=== PATIENT | female | born 1950 | race Caucasian/White ===

== ENCOUNTER → 2022-06-26 | Outpatient (CLI) | payer MEDICARE, SELFPAY ==
[2022-06-26 12:50] LABS: Microalbumin:Creatinine Ratio 131.3 mg/g CRE (<30 mg/g CRE)
[2022-06-26 12:52] LABS: Vitamin D,25 Hydroxy 79.4 ng/mL
[2022-06-26 13:47] LABS: AST(SGOT) 11 U/L (15-37); Alanine Aminotransfer ALT/SGPT 17 U/L (13-56); Albumin, Serum 3.2 g/dL (3.2-5.0); Alkaline Phosphatase 76 U/L (45-117); Anion Gap 8 (5-15); BUN 16 mg/dL (7-18); BUN/Creat Ratio 16.5 RATIO (10-20); Calcium,Total 8.8 mg/dL (8.5-10.1); Chloride 107 mmol/L (98-107); Cholesterol 126 mg/dL (200); Creatinine, Serum 0.97 mg/dL (0.55-1.02); EST Glomerular Filtration Rate 60 mL/min (>60); Est Glom Filt Rate - Afr Amer 73 mL/min (>60); Globulin 3.2 g/dL (2.2-4.2); Glucose 76 mg/dL (74-106); High Density Lipoprotein 35 mg/dL; Potassium 3.2 mmol/L (3.5-5.1); Protein, Total 6.4 g/dL (6.4-8.2); Sodium Level 141 mmol/L (136-145); T4 Free Direct 1.18 ng/dL (0.76-1.46); Thyroid Stim Hormone (TSH) 0.44 uIU/mL (0.358-3.74); Triglycerides 188 mg/dL; Very Low Density Lipoprotein 38 mg/dL (5-40)
== END | disposition home or self-care (01) ==
PROVIDERS: PCP Family Medicine; Referring Provider Nurse Practitioner Family; Visit Provider Nurse Practitioner Family
DX: E10.319 Type 1 diabetes mellitus with unspecified diabetic retinopathy without macular edema (principal); E10.42 Type 1 diabetes mellitus with diabetic polyneuropathy; E55.9 Vitamin D deficiency, unspecified
CPT/HCPCS: 36415; 80053; 80061; 82043; 82306; 82570; 84439; 84443

== ENCOUNTER → 2022-08-14 | Outpatient (CLI) | payer MEDICARE, SELFPAY ==
[2022-08-14 17:32] LABS: ALB/GLOB Ratio 1.1 RATIO (0.9-2.4); AST(SGOT) 15 U/L (15-37); Alanine Aminotransfer ALT/SGPT 18 U/L (13-56); Albumin, Serum 3.5 g/dL (3.2-5.0); Alkaline Phosphatase 73 U/L (45-117); Anion Gap 4 (5-15); BUN 21 mg/dL (7-18); BUN/Creat Ratio 21.6 RATIO (10-20); Calcium,Total 9.4 mg/dL (8.5-10.1); Chloride 109 mmol/L (98-107); Creatinine, Serum 0.97 mg/dL (0.55-1.02); EST Glomerular Filtration Rate 60 mL/min (>60); Est Glom Filt Rate - Afr Amer 73 mL/min (>60); Globulin 3.3 g/dL (2.2-4.2); Glucose 314 mg/dL (74-106); Potassium 4.1 mmol/L (3.5-5.1); Protein, Total 6.8 g/dL (6.4-8.2); Sodium Level 140 mmol/L (136-145)
== END | disposition home or self-care (01) ==
LOC: LAB 16:48
PROVIDERS: Nurse Practitioner Family; PCP Family Medicine; Referring Provider Physician Assistant; Visit Provider Physician Assistant
DX: E10.65 Type 1 diabetes mellitus with hyperglycemia (principal)
CPT/HCPCS: 36415; 80053

== ENCOUNTER → 2022-09-05 | Outpatient (CLI) | payer MEDICARE, SELFPAY ==
--- NOTE | 2022-09-05 13:16 | CT_ITS ---
STUDY: CTA OF THE ABDOMINAL AORTA AND BILATERAL LOWER EXTREMITIES REASON FOR EXAM: Female, 71 years old. PAD with BLE claudication RADIATION DOSAGE (If Supplied By Facility): CTDIvol = ( 6.48 ) mGy, DLP = ( 979.62 ) mGycm TECHNIQUE: Axial CT angiography multi-detector data acquisition was obtained from the dome of the liver to the level of the ankles following intravenous administration of IV 100mL Isovue-370. Axial images and MIP images were reconstructed from the axial data set. Post-processing of the angiographic images was performed, with multiplanar reformation and 3D reconstruction. Individualized dose optimization techniques were used for this CT. TECHNICAL QUALITY: Good COMPARISON: None. Descriptors of Narrowing: None (0%) Mild (< 50%) Moderate (50-70%) Severe (70-90%) Subtotal/Total Occlusion (90-100%) Non-Evaluable (technically non-diagnostic FINDINGS: There is a 3.2 cm x 3.5 cm cyst in the lateral midportion of the left kidney. There is also evidence of a 1.4 cm cyst in the anterior midportion of the left kidney. Small gallstones. Abdominal aorta: Atherosclerotic calcific plaques of the abdominal aorta. No evidence of aneurysm. Celiac and superior mesenteric arteries: No demonstrated narrowing. Inferior mesenteric artery: No demonstrated narrowing. Right renal artery(arteries): Mild atherosclerotic plaques at the origin of the right renal artery. Left renal artery(arteries): Mild atherosclerotic plaques at the origin of the left renal artery. Right common iliac artery: Nonstenotic plaques in the right common iliac artery. Right external iliac artery: No demonstrated narrowing. Right internal iliac artery: No demonstrated narrowing. Left common iliac artery: Nonstenotic calcific plaques. Left external iliac artery: No demonstrated narrowing. Left internal iliac artery: No demonstrated narrowing. RIGHT LOWER EXTREMITY Right common femoral artery: No demonstrated narrowing. Right profundus femoris: No demonstrated narrowing. Right superficial femoral: Scattered nonstenotic plaques throughout the course of the superficial femoral artery. Right popliteal artery: Nonstenotic plaques of the popliteal artery. Right tibioperoneal trunk: No demonstrated narrowing. Right anterior tibial artery: No demonstrated narrowing. Right posterior tibial artery: No demonstrated narrowing. Right peroneal artery: No demonstrated narrowing. LEFT LOWER EXTREMITY Left common femoral artery: No demonstrated narrowing. Left profundus femoris: No demonstrated narrowing. Left superficial femoral: Nonstenotic calcific plaques. Left popliteal artery: No demonstrated narrowing. Left tibioperoneal trunk: No demonstrated narrowing. Left anterior tibial artery: No demonstrated narrowing. Left posterior tibial artery: No demonstrated narrowing. Left peroneal artery: No demonstrated narrowing. CT/CTA Abd w/Runoff W/WO Contrast IMPRESSION: Atherosclerotic calcific plaques of the abdominal aorta without aneurysmal formation. Scattered atherosclerotic and not stenotic calcific plaques of both common iliac arteries and superficial femoral arteries. Electronically Signed: Jaylan Ashford MD at 15:08 EDT ,
== END | disposition home or self-care (01) ==
LOC: CT 13:12
PROVIDERS: PCP Family Medicine; Referring Provider Physician Assistant; Visit Provider Physician Assistant
DX: I70.219 Atherosclerosis of native arteries of extremities with intermittent claudication, unspecified extremity (principal); I70.0 Atherosclerosis of aorta
CPT/HCPCS: 75635; Q9967

== ENCOUNTER → 2022-09-30 | Outpatient (CLI) | payer MEDICARE, SELFPAY ==
--- NOTE | 2022-09-30 08:24 | MRI_ITS ---
STUDY: MRI LUMBAR SPINE WITHOUT CONTRAST REASON FOR EXAM: Female, 71 years old. Pain in low back and bilateral hips. TECHNIQUE: Standardized fat and water weighted pulse sequences were obtained in the sagittal and axial planes. COMPARISON: CTA abdomen with runoff 09/05/2022. Lumbar spine radiographs 09/12/2022. FINDINGS: T8-T9, T9-T10 and T10-T11: (Sagittal only). Degenerative disc space height narrowing. Small posterior bulging annulus at T9-T10 and T10-T11 disc space levels. Normal central canal and bilateral intervertebral neural foramina. T11-T12 and T12-L1: (Sagittal only). Normal endplates. Normal disc height, hydration and morphology. Normal central canal and bilateral intervertebral neural foramina. Normal lumbar lordosis. There is no substantial scoliosis. Normal conus medullaris that terminates at the lower T12 vertebral body level. L1-2: Normal endplates. Pronounced disc space height narrowing. Prominent ventral axial defect due to bone spur. Normal facet joints. Normal central canal and bilateral lateral recesses. Normal bilateral intervertebral neural foramina. L2-3: Extensive mixed Modic type I and type III degenerative changes of the vertebral marrow underneath the vertebral endplates. Pronounced disc space height narrowing. No significant facet arthropathy. Pronounced central canal stenosis with an AP canal diameter of 4 mm. Normal bilateral lateral recesses. Moderate stenosis of the left intervertebral neural foramen. Mild stenosis of the right intervertebral neural foramen. L3-4: Mild endplate sclerosis. Pronounced disc space height narrowing. No significant facet arthropathy. Prominent dorsal epidural lipomatosis. Pronounced central canal stenosis with an AP canal diameter of 4 mm. Normal bilateral lateral recesses. Mild stenosis of the bilateral intervertebral neural foramina. L4-5: Ankylosis of the L4-L5 vertebral body cyst. No significant facet arthropathy. Metallic implant in between the L4 and L5 spinous processes causing some signal distortion artifacts. Normal central canal and bilateral lateral recesses. Normal bilateral intervertebral neural foramina. L5-S1: Normal endplates. Normal disc height and morphology. Mild left degenerative facet arthropathy. Normal right facet joint. Normal central canal and bilateral lateral recesses. Moderate stenosis of the right intervertebral neural foramen. Normal left intervertebral neural foramen. Normal visualized sacral ala. Normal visualized paraspinous soft tissue structures. MRI/Spine Lumbar (Routine) IMPRESSION: 1. Pronounced central canal stenosis at L2-L3 disc space level with an AP canal diameter of 4 mm and moderate stenosis of the left L2-L3 intervertebral neural foramen. 2. Pronounced central canal stenosis at L3-L4 disc space level with an AP canal diameter of 4 mm. 3. No MRI evidence of lumbar extruded disc fragment or disc protrusion. Electronically Signed: Dejuan Kennedy MD at 12:28 EDT ,
[2022-09-30 09:19] LABS: ALB/GLOB Ratio 1.1 RATIO (0.9-2.4); AST(SGOT) 14 U/L (15-37); Alanine Aminotransfer ALT/SGPT 18 U/L (13-56); Albumin, Serum 3.3 g/dL (3.2-5.0); Alkaline Phosphatase 72 U/L (45-117); Anion Gap 4 (5-15); BUN 23 mg/dL (7-18); BUN/Creat Ratio 18.9 RATIO (10-20); Chloride 110 mmol/L (98-107); Creatinine, Serum 1.22 mg/dL (0.55-1.02); EST Glomerular Filtration Rate 46 mL/min (>60); Est Glom Filt Rate - Afr Amer 56 mL/min (>60); Globulin 3.1 g/dL (2.2-4.2); Glucose 258 mg/dL (74-106); Potassium 4.4 mmol/L (3.5-5.1); Protein, Total 6.4 g/dL (6.4-8.2); Sodium Level 137 mmol/L (136-145)
== END | disposition home or self-care (01) ==
PROVIDERS: Nurse Practitioner Family; PCP Family Medicine; Referring Provider Orthopaedic Surgery; Visit Provider Orthopaedic Surgery
DX: I12.9 Hypertensive chronic kidney disease with stage 1 through stage 4 chronic kidney disease, or unspecified chronic kidney disease (principal); E10.65 Type 1 diabetes mellitus with hyperglycemia; E10.22 Type 1 diabetes mellitus with diabetic chronic kidney disease; N18.30 Chronic kidney disease, stage 3 unspecified; M47.816 Spondylosis without myelopathy or radiculopathy, lumbar region
CPT/HCPCS: 36415; 72148; 80053

== ENCOUNTER 2022-10-21 07:35 | Day surgery (SDC) | payer MEDICARE, SELFPAY ==
[2022-10-20 09:04] VITALS: BMI 26.2
[2022-10-21 07:59] LABS: Absolute Lymphocyte Count 2.72 X10^3/uL (0.83-4.51); Basophil# 0.05 X10^3/uL; Basophil% 0.6 % (0-1); Eosinophil# 0.56 X10^3/uL; Eosinophils% 6.9 % (0-5); Hematocrit 36.8 % (37-47); Hemoglobin 12.2 g/dL (12.0-15.0); Lymphocyte # 2.72 X10^3/ul (0.83-4.51); Lymphocyte % 33.4 % (19-41); Mean Corp Hgb Conc 33.2 g/dL (32-36); Mean Corpuscular Hgb 29.9 pg (27.0-32.0); Mean Corpuscular Volume 90.2 fL (81-99); Mean Platelet Vol. 8.7 fl (6.2-12.0); Monocyte# 0.81 X10^3/uL; Monocyte% 9.9 % (0-10); NRBC Flagged by Analyzer 0 % (0-5); Neutrophil # 3.98 X10^3/uL (2.7-7.7); Neutrophil % 48.8 % (47-70); Platelet Count 213 K/mm3 (150-450); RBC Distribution Width SD 42.8 fl (35.1-43.9); Red Blood Count 4.08 M/mm3 (4.2-5.4); White Blood Count 8.2 K/mm3 (4.4-11.0)
[2022-10-21 08:17] LABS: Anion Gap 5 (5-15); BUN 12 mg/dL (7-18); BUN/Creat Ratio 13.1 RATIO (10-20); Calcium,Total 8.8 mg/dL (8.5-10.1); Chloride 107 mmol/L (98-107); Creatinine, Serum 0.91 mg/dL (0.55-1.02); EST Glomerular Filtration Rate 65 mL/min (>60); Est Glom Filt Rate - Afr Amer 78 mL/min (>60); Estimated Creatinine Clearance 41.91 ml/min; Glucose 244 mg/dL (74-106); Potassium 3.7 mmol/L (3.5-5.1); Sodium Level 138 mmol/L (136-145)
[2022-10-21 11:11] LABS: ACT Activated Clotting Time 275 sec (74-137)
[2022-10-21 11:12] LABS: ACT Activated Clotting Time 233 sec (74-137)
--- NOTE | 2022-10-21 11:22 | OP.PCM_ITS ---
Report of Operation Date of Procedure: 10/21/22 Pre-Operative Diagnosis: atherosclerosis with claudication bilateral Post-Operative Diagnosis: same Surgery/Procedure Performed:: aortogram IVUS aorta, bilateral common iliac arteries, bilateral external iliac arteries angioplasty/stent right common iliac artery angioplasty/stent right external iliac artery angioplasty/stent left external iliac artery Surgeon: Henry Walter Type of Anesthesia: Local and Sedation,Conscious Estimated Blood Loss (mL): 5 Description of Procedure: HPI: Patient is a 71-year-old female with lifestyle limiting claudication refractory to medical and exercise therapy. She had a CT scan which revealed a high-grade mid right common iliac artery stenosis and a high-grade left external iliac artery stenosis. She presents now for angiogram with possible intervention. Description of procedure: Upon obtaining form consent and verification correct patient procedure site patient was taken to the [facility] where she was positioned prepped and draped in usual sterile fashion. Time was performed conscious sedation was administered with Versed and fentanyl. Skin overlying the right common femoral artery was anesthetized 1% lidocaine and the vessel was accessed under ultrasound guidance with a micropuncture needle wire. This was exchanged for micropuncture sheath through which injection femoral angiogram was performed revealed satisfactory placement no extravasation or dissection. Through the micro sheath the Bentson wire was advanced and the micropuncture sheath exchanged out for a short 5 Azerbaijani sheath. Bentson wire then advanced into the abdominal aorta and the 5 Azerbaijani sheath exchanged for 7 Azerbaijani sheath advanced into the proximal external iliac artery. Next skin overlying the left common femoral artery was anesthetized 1% lidocaine and the vessel was accessed under ultrasound guidance with micropuncture needle and wire. This was then exchanged for micropuncture sheath through which injection femoral angiogram was performed through a satisfactory placement no extravasation or dissection. Through the micropuncture sheath a Bentson wire was advanced into the proximal external iliac artery which point obstruction was encountered. Micropuncture sheath then exchanged out for short 5 Azerbaijani sheath and through the 5 Azerbaijani sheath the Bentson wire and angled glide catheter were used to navigate the iliac lesion, traversing it successfully and entering into the abdominal aorta. Patient was then heparinized and lost for 3 minutes. The left 5 Azerbaijani sheath was exchanged out for a 6 Azerbaijani sheath. Hand-injection aortogram pelvic angiogram was performed which confirmed the high-grade stenosis of both the right common and left external iliac arteries. In order to obtain more accurate size measurement and extent of lesion intravascular ultrasound was then brought to field prep for head butler instructions. The glide catheter was advanced via the right femoral access sheath and the Bentson wire exchanged out for an 014 wire. Over the 014 wire intravascular sound advanced abdominal aorta and recorded pullback of the aorta, right common iliac, right external iliac artery was performed. This revealed a high grade stenosis of the right common iliac artery with adequate landing zone above the lesion to avoid need for contralateral common iliac stent. A Hershey Viabahn 7 x 29 balloon expandable covered stent was brought to field and prepped for manufactures instructions. This then advanced into position and inflated to nominal and then deflated withdrawn. The proximal portion of the stent was then postdilated with an 8 mm x 4 angioplasty balloon inflated to nominal and then deflated withdrawn. Next a Cook Zilver PTX paclitaxel coated self-expanding stent was advanced in position with overlapping of the original stent and distal coverage beyond the area of the lesion. This was then deployed and then postdilated to 6 mm with an angioplasty balloon. Repeat intravascular ultrasound revealed satisfactory resolution of the lesion residual stenosis, no dissection, and good stent wall apposition. Repeat subtraction angiography confirmed satisfactory contrast transit with no extravasation. Intravascular ultrasound probe was then withdrawn and glide catheter used to exchange the 014 wire for the Bentson wire. Next glide catheter advanced via the left femoral access sheath and the Bentson wire exchanged for the 014 wire. Intravascular ultrasound advanced into the aorta and recorded pullback of the aorta, left common iliac, left external iliac artery was performed. This confirmed high-grade stenosis of the proximal external iliac artery. A Cook Zilver 8 x 80 self-expanding paclitaxel coated stent was then brought in field prep for head butler instructions. This was advanced into position and deployed and then postdilated to 7 mm. Intravascular sound then readvanced and revealed satisfactory resolution of the lesion with no residual stenosis, no dissection, and good stent wall apposition. Completion angiography confirmed brisk contrast transit with no extravasation. The right 7 Azerbaijani sheath was then exchanged for a short 7 Azerbaijani sheath and a minx closure device deployed with 2 intermittent pressure and satisfactory stasis. The left 6 Azerbaijani sheath was then exchanged for a short 6 Azerbaijani sheath and a minx closure device deployed. There was some mild bleeding after the minx was deployed so manual pressure was held for prolonged period of time with satisfactory stasis noted. Patient was then taken to recovery room for bedrest with anticipated discharge home.
== END 2022-10-21 15:30 | disposition home or self-care (01) ==
LOC: CLSP 07:36
PROVIDERS: PCP Family Medicine; Referring Provider Surgery Trauma Surgery; Visit Provider Surgery Trauma Surgery
DX: I70.213 Atherosclerosis of native arteries of extremities with intermittent claudication, bilateral legs (principal); E11.51 Type 2 diabetes mellitus with diabetic peripheral angiopathy without gangrene; E11.22 Type 2 diabetes mellitus with diabetic chronic kidney disease; Z79.4 Long term (current) use of insulin; N18.30 Chronic kidney disease, stage 3 unspecified; I25.2 Old myocardial infarction; G47.30 Sleep apnea, unspecified; Z95.5 Presence of coronary angioplasty implant and graft; Z79.899 Other long term (current) drug therapy
CPT/HCPCS: 36246; 36200; 36415; 37221; 37222; 37223; 37252; 37253; 75625; 76937; 80048; 85025; 85347; 99152; 99153; C1753; C1760; C1769; C1874; C1894; J7040; Q9967; C1725

== ENCOUNTER → 2022-12-22 | Outpatient (CLI) | payer MEDICARE, SELFPAY ==
--- NOTE | 2022-12-22 09:58 | ART_ITS ---
Reason For Study: CLAUDICATION Procedure A bilateral lower extremity continuous wave Doppler with analog waveform analysis,segmental pressures,and ankle brachial indexes without exercise. Left Segmental Pressures Left brachial= 155mmHg. Left thigh = 177mmHg. Left calf = 146mmHg. Left posterior tibial artery = 131mmHg. Left dorsalis pedis artery = 129mmHg. Left digit = 88 mmHg. The left posterior tibial artery waveforms are biphasic. The left dorsalis pedis waveforms are biphasic. Right Segmental Pressures Right brachial= 164mmHg. Right thigh = 150mmHg. Right calf = 128mmHg. Right posterior tibial artery = 120mmHg. Right dorsalis pedis artery = 120mmHg. Right digit = 88 mmHg. The right posterior tibial artery waveforms are biphasic. The right dorsalis pedis waveforms are biphasic. Indices The right resting ankle brachial index is 0.73. The right ankle brachial index by the posterior tibial artery is 0.73. The right ankle brachial index by the dorsalis pedis is 0.73. The right digital-brachial index is 0.54. The left resting ankle brachial index is 0.79. The left ankle brachial index by the posterior tibial artery is 0.80. The left ankle brachial index by the dorsalis pedis is 0.79. The left digital-brachial index is 0.54. VL/Lower Ext Art Exam w/o Exercis Interpretation Summary Right MARY 0.73, moderate arterial insufficiency. Doppler/PVR waveforms and segm ental pressures reveal [id number] femoral, distal SFA/popliteal disease. Left MARY 0.8, moderate arterial insufficieny. Doppler/PVR waveforms and segment al pressures reveal distal SFA/popliteal disease Ordering Physician: Henry Walter Referring Physician: Jose Contreras Performed By: Mildred Cortez RVT, RDCS
== END | disposition home or self-care (01) ==
LOC: CVS 09:57
PROVIDERS: PCP Family Medicine; Referring Provider Surgery Trauma Surgery; Visit Provider Surgery Trauma Surgery
DX: I73.9 Peripheral vascular disease, unspecified (principal)
CPT/HCPCS: 93923

== ENCOUNTER → 2023-01-06 | Outpatient (CLI) | payer MEDICARE, SELFPAY ==
--- NOTE | 2023-01-06 12:59 | CT_ITS ---
STUDY: LOW DOSE CT LUNG CANCER SCREENING REASON FOR EXAM: Female, 72 years old. lung cancer screening -- and gt;20 pk yr hx;current smoker;asymptomatic RADIATION DOSAGE (If Supplied By Facility): CTDIvol = ( 2.01 ) mGy, DLP = ( 63.44 ) mGycm TECHNIQUE: No contrast was administered. Low dose technique was utilized (average mAS-38 and kVp 120). 1.25 mm axial source images with a slice interval of 1.25-mm were reconstructed in lung windows. 2.5 mm axial source images with a slice interval of 2.5-mm were reconstructed in lung windows. 5.0 mm axial source images with a slice interval of 5.0-mm were reconstructed in soft tissue windows. COMPARISON: None. NODULES: No suspicious nodules are seen. Emphysema: Mild degree of emphysematous changes. Endobronchial lesion: None Aorta: Atherosclerotic plaque formation. CORONARY ARTERIES: Coronary artery calcification is seen. Heart: Unremarkable Pulmonary artery: Unremarkable Mediastinal nodes: Small mediastinal lymph nodes. Other chest and abdominal findings: CT/Low Dose CT Lung Screening IMPRESSION: Lung-RADS category 2 - Continue annual screening with LDCT in 12 months. IMPORTANT NOTES FOR USE: ACR Lung-RADS Version 1.1 Assessment Categories Release Date: 2018 Category: Coded 0-4 bases on nodule(s) with highest degree of suspicion. Negative screen is defined as categories 1 and 2; a positive screen is defined as categories 3 and 4. Category 3 and 4A nodules that are unchanged on interval CT should be coded as category 2, and individuals returned to screening in 12 months. Category 4X: Category 3 or 4 nodules with additional imaging findings that increase the suspicion of lung cancer, such as spiculation, GGN that doubles in size in 1 year, enlarged lymph notes, etc. Category Modifiers: S (significant finding unrelated to lung cancer) Electronically Signed: Jaylan Ashford MD at 13:57 EDT ,
== END | disposition home or self-care (01) ==
LOC: CT 12:49
PROVIDERS: PCP Family Medicine; Referring Provider Nurse Practitioner Family; Visit Provider Nurse Practitioner Family
DX: Z87.891 Personal history of nicotine dependence (principal)
CPT/HCPCS: 71271

== ENCOUNTER → 2023-02-18 | Outpatient (CLI) | payer MEDICARE, SELFPAY ==
--- NOTE | 2023-02-18 07:10 | ECHOD_ITS ---
Reason For Study: CAD, SOB Procedure This was a 2D Doppler, Color Flow transthoracic echocardiogram. Exam performed in department. Left Ventricle Mild concentric left ventricular hypertrophy. Normal LV size. Left ventricular systolic function is normal. The estimated ejection fraction is 60 %. Normal diastology for age. No regional wall motion abnormalities noted. Right Ventricle Normal RV size. Normal systolic function. Atria The left and right atria are normal. Bubble contrast study negative for right to left interatrial shunt. Mitral Valve Mild mitral annular calcification. The mitral valve chordae are thickened and/or calcified. There is no mitral valve stenosis. Trivial mitral valve insufficiency. Tricuspid Valve Normal tricuspid valve. Trivial tricuspid valve insufficiency. Right ventricular systolic pressure estimated to be 33 mmHg. Aortic Valve Trisinus/trileaflet aortic valve. Mild focal aortic valve calcification. Mild-Moderate (1-2+) aortic valve insufficiency. Pulmonic Valve The pulmonic valve is not well visualized. Great Vessels Normal aortic root. Pericardium/Pleural No pericardial effusion. Medication Performed a rapid injection of agitated mix of 9 cc saline and 1cc air to assess for atrial septal defect. MMode/2D Measurements & Calculations LVIDd: 4.7 cm IVSd: 1.1 cm Ao root diam: 2.7 cm LVIDs: 3.2 cm LVPWd: 1.2 cm RVDd: 3.0 cm FS: 31.9 % LAV(MOD-bp): 41.8 ml LVAd ap4: 24.1 cm2 LVAd ap2: 25.3 cm2 LAV(MOD-bp) Indexed: 26.3 ml/m2 LVLd ap4: 7.4 cm LVLd ap2: 7.5 cm LAV(MOD-sp2): 33.2 ml EDV(MOD-sp4): 64.5 ml EDV(MOD-sp2): 74.0 ml LAV(MOD-sp4): 41.8 ml EDV(sp4-el): 66.5 ml EDV(sp2-el): 72.5 ml LVAs ap4: 13.1 cm2 LVAs ap2: 12.3 cm2 LVLs ap4: 6.2 cm LVLs ap2: 5.9 cm ESV(MOD-sp4): 24.4 ml ESV(MOD-sp2): 23.2 ml ESV(sp4-el): 23.5 ml ESV(sp2-el): 21.8 ml EF(MOD-sp4): 62.1 % EF(MOD-sp2): 68.6 % EF(sp4-el): 64.6 % SV(MOD-sp4): 40.1 ml SV(MOD-sp2): 50.8 ml SV(sp4-el): 42.9 ml LA A4 area: 17.1 cm2 LA dimension(2D): 3.3 cm RA A4 area: 9.3 cm2 TAPSE: 2.3 cm Time Measurements MV dec time: 0.18 sec Doppler Measurements & Calculations MV E max amari: 117.8 cm/sec Lat Peak E' Amari: 8.9 cm/sec Med Peak E' Amari: 8.1 cm/sec MV A max amari: 97.7 cm/sec E/E' lat: 13.2 E/E' med: 14.5 MV E/A: 1.2 Ao V2 max: 168.5 cm/sec AI max amari: 375.9 cm/sec LV V1 max: 134.4 cm/sec Ao max P.4 mmHg AI max P.6 mmHg LV V1 max P.2 mmHg AI dec slope: 252.2 cm/sec2 AI P1/2t: 436.7 msec PA V2 max: 113.8 cm/sec TR max amari: 273.6 cm/sec TR max P.9 mmHg ECHO/Echo Complete Interpretation Summary The estimated ejection fraction is 60 %. Mild concentric left ventricular hypertrophy. Mild mitral annular calcification. Bubble contrast study negative for right to left interatrial shunt. Mild-Moderate (1-2+) aortic valve insufficiency. Ordering Physician: Mira Wood Referring Physician: Mira Wood Performed By: Jennifer Chaparro RDCS
--- NOTE | 2023-02-23 15:59 | STRESSREP ---
Stress Test Report Date: 02/18/2023 Procedure: Pharmacologic stress nuclear imaging study Indications: Dyspnea Consent: Per the patient Procedure: The patient underwent pharmacologic (Regadenoson 0.4mg ) evaluation with a peak heart rate of 83 beats per minute (55%predicted maximal heart rate) and a peak blood pressure of 148/70 mmHg. The baseline ECG demonstrated sinus rhythm. The peak pharmacologic ECG demonstrated no ischemic change. Occasional PVCs noted postinfusion. There was no complaint of chest discomfort during pharmacologic infusion or recovery. The patient was injected with 11.2 millicuries of technetium 99m Cardiolite and subsequently rest SPECT Cardiolite nuclear imaging was obtained in the horizontal long, vertical long, and short axis views. The patient underwent pharmacologic (Regadenoson) evaluation. The patient was injected with 36.0 millicuries of technetium 99m Cardiolite and subsequently stress SPECT Cardiolite nuclear imaging was obtained in the horizontal long, vertical long, and short axis views. A gated Cardiolite study at peak stress was obtained. The examination was stopped secondary to completion of protocol. Rest and stress SPECT Cardiolite nuclear imaging status post realignment, normalization, and attenuation correction demonstrate a fixed inferior defect consistent with prior nontransmural infarction. There is end systolic thickening and brightening. The gated Cardiolite study demonstrates myocardial thickening and inward wall motion. The reported LVEF is 66%. Impression: 1. Pharmacologic (Regadenoson) evaluation 2. Peak pharmacologic ECG with no ischemic changes. 3. Occasional PVCs during recovery. 5. Fixed inferior perfusion defect consistent with nontransmural infarction with no significant [place]olina-infarct ischemia.. 6. The gated Cardiolite study reports an LVEF of 66%. This note was generated with [employer] software. It may contain incorrect words, spelling, and punctuation that were not noted in checking the note before signing.
== END | disposition home or self-care (01) ==
LOC: CVS 07:03
PROVIDERS: PCP Family Medicine; Referring Provider Internal Medicine Cardiovascular Disease; Visit Provider Internal Medicine Cardiovascular Disease
DX: I25.10 Atherosclerotic heart disease of native coronary artery without angina pectoris (principal); I73.9 Peripheral vascular disease, unspecified; R06.09 Other forms of dyspnea
CPT/HCPCS: 78452; 93017; 93306; A9500; A4216; J2785

== ENCOUNTER → 2023-03-02 | Outpatient (CLI) | payer MEDICARE, SELFPAY ==
[2023-03-02 16:16] LABS: Amphetamine Urine VISTA NEGATIVE (<1000 ng/mL); Barbiturate Urine VISTA NEGATIVE (< 200 ng/mL); Benzodiazepine Urine VISTA NEGATIVE (< 200 ng/mL); Cocaine Urine VISTA NEGATIVE (< 300 ng/mL); Ecstacy Urine VISTA POSITIVE (< 500 ng/mL); Methadone Urine VISTA NEGATIVE (< 300 ng/mL); PCP Urine VISTA NEGATIVE (< 25 ng/mL); THC Urine VISTA NEGATIVE (< 50 ng/mL); Vista UDS pH Range 4
== END | disposition home or self-care (01) ==
LOC: LAB 13:53
PROVIDERS: PCP Family Medicine; Referring Provider Anesthesiology; Visit Provider Anesthesiology
DX: F11.23 Opioid dependence with withdrawal (principal)
CPT/HCPCS: 80307

== ENCOUNTER 2023-03-18 09:21 | Outpatient (RCR) | payer MEDICARE, SELFPAY ==
--- NOTE | 2023-03-18 10:36 | HP.PTEVAL_ITS ---
Patient's Visit Information Visit Information Visit Information: ISATU PIRES is a 72 year old F referred to Physical Therapy by Dr. Vitaly Villafuerte MD with a diagnosis of LUMBAR SPINAL STENOSIS ,LUMBAR SPONDYLOSIS. Date of Evaluation: 03/18/23 Physical Therapist: Willy Graham, PT, Cert MDT, OCS Visit Plan Frequency: 2x /Week Duration: 4 Weeks Plan: PT INTERVTIONS DLS ,POSTURAL EX'S ,LE FLXABILITY ,LUMBAR FLEXION AND MODALTIES PRN Subjective Subjective: This 72 y/o female presents to physical therapy with lumbar pain. Patient has had lumbar pain for many years. Patient has had lumbar surgery fusion 4 years ago. Pain getting worse more constant. Patient seen internal communications specialist in [place]. Patient also seen DR Nielsen had MRI and x-rays DDD and lumbar stenosis and fusion looked intact. Pain medication [place]. Patient has had injections in past and plan to See pain management at [facility]. Pain located symmetrical lumbar described as ache. Aggravating factors walking/standing/lifting /bending. Alleviating factors rest sitting. Bowel/bladder -. Coughing/sneezing-. Patient sleeping good at night ,although unable to sleep on back . No abnormal night pain. Patient has had PT in past many years ago. Patient pain affects QOL and function. VOCATION: retired SOCIAL: Pain Bilateral Back: Pain Intensity (Out of 10): 7 Pain Intensity Range: 10 Objective Objective: POSTURE: mild forward posture NEURO: denies paresthesia/tingling ,reflexes L3-4,L4-5 ,L5-S1 2/3 SYMMTRIES: align PALAPTION: unremarkable LUMBAR ROM: flexion min loss ,extension mod/severe loss ,side glides mod loss MMT: quads/hams 4/5 ,hip flexion 4-//5 ,ankle 5/5 FLEXABILIY: min tight Special Tests L/S Slump test left side: Negative L/S Slump test right side: Negative L/S Left Straight Leg Raise: Negative L/S Right Straight Leg Raise: Negative Lumbar Standing: Flexion - Mechanical Response: No effect Lumbar Standing: Flexion - Symptoms During Testing: No effect Lumbar Standing: Flexion - Symptoms After Testing: No effect Lumbar Standing: Extension - Mechanical Response: No effect Lumbar Standing: Extension - Symptoms During Testing: Increases Lumbar Standing: Extension - Symptoms After Testing: No worse Lumbar Standing: Right Side Glides - Mechanical Response: No effect Lumbar Standing: Right Side [place] - Symptoms During Testing: No effect Lumbar Standing: Right Side [place] - Symptoms After Testing: No effect Lumbar Standing: Left Side [place] - Mechanical Response: No effect Lumbar Standing: Left Side [place] - Symptoms During Testing: No effect Lumbar Standing: Left Side [place] - Symptoms After Testing: No effect Balance/Special Test Scores Oswestry Low Back Score: 24 Goals Goal 1:: Patient to be I with HEP Goal Time Frame: 4-6 Weeks Goal 2:: Patient to demonstrate 50% improvement with decrease pain and improve function Goal Time Frame: 4-6 Weeks Goal 3:: Patient to improve lumbar ROM for function of recovery for ADLS Goal Time Frame: 4-6 Weeks Goal 4:: Patient improve back oswestry score by 5 points to improve function and QOL Goal Time Frame: 4-6 Weeks Goal 5:: Patient be able to walk and stand to perform ADLS and housework tasks 50 % OF THE TIME Goal Time Frame: 4-6 Weeks Rehabilitation Potential Physical Therapy Diagnosis: This patient has lumbar stenosis with symmetrical lumbar pain along with h/o of lumbar fusion with pain with positioning and walking and standing affects housework task and ADLS Rehabilitation Potential: Good Anticipated Interventions Patient/Client Instruction: Educate patient on: Condition and Plan of Care For the Purpose of:: To decrease pain, To increase ROM, To improve muscle performance and motor function, To improve ability to perform ADL's, To increase tolerance to activity/condition/position, To improve ability of physical actions for home/community/work/leisure, To improve gait and locomotor functions, To improve health of tissue, To decrease soft tissue restriction, To increase flexibility/ROM, To reduce risk of recurrence and To improve tolerance to ADL's Therapeutic Exercise to Include: Strength training, Endurance training, Body mechanics, Postural training, Flexibilty training and Dynamic Lumbar Stabilization For the Purpose of:: To decrease pain, To increase ROM, To improve muscle performance and motor function, To improve ability to perform ADL's, To increase tolerance to activity/condition/position, To improve ability of physical actions for home/community/work/leisure, To improve health of tissue, To decrease soft tissue restriction and To increase flexibility/ROM TENS: Yes IF ES: Yes Cryotherapy (ice pack, ice massage): Yes Thermo therapy (hot pack): Yes Ultrasound (thermal/non thermal): Yes For the Purpose of:: To decrease pain, To decrease swelling/inflammation, To increase ROM, To improve health of tissue and To decrease soft tissue restriction Text: Thank you for the opportunity to evaluate your patient. For Medicare and Medicare HMO plans, please review the plan of care and approve it. It will need to be FAXED BACK to us at [phone] for Medicare purposes. For Medicare only, by signing this I certify the plan of care. Please let me know if there are questions or concerns regarding this plan of care. Physician Signature: Date:
== END 2023-03-18 19:00 | disposition home or self-care (01) ==
LOC: PT 09:21
PROVIDERS: PCP Family Medicine; Visit Provider Anesthesiology
DX: M48.061 Spinal stenosis, lumbar region without neurogenic claudication (principal); M47.816 Spondylosis without myelopathy or radiculopathy, lumbar region
CPT/HCPCS: 97162

== ENCOUNTER → 2023-06-23 | Outpatient (CLI) | payer MEDICARE, SELFPAY ==
[2023-06-23 12:29] LABS: Protein, Urine (Random) 55.2 mg/dL (<11.9); Protein:Creat Ratio 460 mg/g CRE (0-200)
[2023-06-23 12:53] LABS: Albumin, Serum 3.3 g/dL (3.2-5.0); BUN 24 mg/dL (7-18); BUN/Creat Ratio 20.9 RATIO (10-20); Calcium,Total 9.3 mg/dL (8.5-10.1); Chloride 110 mmol/L (98-107); Creatinine, Serum 1.15 mg/dL (0.55-1.02); EST Glomerular Filtration Rate 50 mL/min (>60); Est Glom Filt Rate - Afr Amer 60 mL/min (>60); Glucose 83 mg/dL (74-106); Phosphorus 3.8 mg/dL (2.5-4.9); Potassium 3.6 mmol/L (3.5-5.1); Sodium Level 139 mmol/L (136-145)
== END | disposition home or self-care (01) ==
LOC: MTLAB 10:10
PROVIDERS: PCP Family Medicine; Referring Provider Internal Medicine Nephrology; Visit Provider Internal Medicine Nephrology
DX: R80.9 Proteinuria, unspecified (principal)
CPT/HCPCS: 36415; 80069; 82570; 84156

== ENCOUNTER → 2023-11-02 | Outpatient (CLI) | payer MEDICARE, SELFPAY ==
[2023-11-02 13:08] LABS: Albumin, Serum 3.5 g/dL (3.2-5.0); BUN 11 mg/dL (7-18); BUN/Creat Ratio 11.8 RATIO (10-20); Calcium,Total 9.5 mg/dL (8.5-10.1); Chloride 110 mmol/L (98-107); Creatinine, Serum 0.93 mg/dL (0.55-1.02); EST Glomerular Filtration Rate 63 mL/min (>60); Est Glom Filt Rate - Afr Amer 76 mL/min (>60); Glucose 63 mg/dL (74-106); Phosphorus 2.5 mg/dL (2.5-4.9); Potassium 3.7 mmol/L (3.5-5.1); Sodium Level 141 mmol/L (136-145)
[2023-11-02 14:27] LABS: Protein, Urine (Random) 77.7 mg/dL (<11.9); Protein:Creat Ratio 843 mg/g CRE (0-200)
== END | disposition home or self-care (01) ==
LOC: MTLAB 09:17
PROVIDERS: PCP Family Medicine; Referring Provider Internal Medicine Nephrology; Visit Provider Internal Medicine Nephrology
DX: R80.9 Proteinuria, unspecified (principal)
CPT/HCPCS: 36415; 80069; 82570; 84156

== ENCOUNTER → 2023-12-01 | Outpatient (CLI) | payer MEDICARE, SELFPAY ==
[2023-12-01 10:48] LABS: AST(SGOT) 11 U/L (15-37); Alanine Aminotransfer ALT/SGPT 15 U/L (13-56); Albumin, Serum 3.4 g/dL (3.2-5.0); Alkaline Phosphatase 59 U/L (45-117); Anion Gap 4 (5-15); BUN 15 mg/dL (7-18); BUN/Creat Ratio 14.9 RATIO (10-20); Calcium,Total 8.8 mg/dL (8.5-10.1); Chloride 109 mmol/L (98-107); Cholesterol 142 mg/dL (200); Creatinine, Serum 1.01 mg/dL (0.55-1.02); EST Glomerular Filtration Rate 57 mL/min (>60); Est Glom Filt Rate - Afr Amer 70 mL/min (>60); Globulin 3.5 g/dL (2.2-4.2); Glucose 125 mg/dL (74-106); High Density Lipoprotein 46 mg/dL; Potassium 3.8 mmol/L (3.5-5.1); Protein, Total 6.9 g/dL (6.4-8.2); Sodium Level 140 mmol/L (136-145); T4 Free Direct 1.03 ng/dL (0.76-1.46); Thyroid Stim Hormone (TSH) 0.23 uIU/mL (0.358-3.74); Triglycerides 138 mg/dL; Very Low Density Lipoprotein 28 mg/dL (5-40)
[2023-12-01 11:02] LABS: Microalbumin:Creatinine Ratio 478.4 mg/g CRE (<30 mg/g CRE)
[2023-12-02 21:07] LABS: C-Peptide < 0.1 ng/mL (1.1-4.4)
== END | disposition home or self-care (01) ==
LOC: MTLAB 08:06
PROVIDERS: PCP Family Medicine; Referring Provider Nurse Practitioner Family; Visit Provider Nurse Practitioner Family
DX: E03.9 Hypothyroidism, unspecified (principal); E10.65 Type 1 diabetes mellitus with hyperglycemia
CPT/HCPCS: 36415; 80053; 80061; 82043; 82570; 84439; 84443; 84681

== ENCOUNTER → 2023-12-08 | Outpatient (CLI) | payer MEDICARE, SELFPAY ==
--- NOTE | 2023-12-08 15:40 | RAD_ITS ---
INDICATION: Cardiac Catheterization EXAMINATION/TECHNIQUE: X-RAY - XR Chest 2 Views COMPARISON: April 11, 2008 FINDINGS: LINES/DEVICES: None. LUNGS: No consolidation, edema or effusion. No pneumothorax. MEDIASTINUM AND CARDIOVASCULAR STRUCTURES: Cardiac silhouette not enlarged. Central airways and mediastinal contour are unremarkable. BONES AND SOFT TISSUES: Degenerative vertebral changes.. RAD/Chest PA and Lateral IMPRESSION: No radiographic evidence of acute cardiopulmonary disease. Electronically Signed: Demetrius Witt DO at 16:00 EDT ,
[2023-12-08 15:57] LABS: Absolute Lymphocyte Count 2.43 X10^3/uL (0.83-4.51); Absolute Neutrophil Count 6.2 X10^3/uL (2.0-7.7); Basophil# 0.07 X10^3/uL; Basophil% 0.7 % (0-1); Eosinophil# 0.26 X10^3/uL; Eosinophils% 2.6 % (0-5); Hematocrit 35.7 % (37-47); Hemoglobin 11.5 g/dL (12.0-15.0); Lymphocyte # 2.43 X10^3/ul (0.83-4.51); Lymphocyte % 24.2 % (19-41); Mean Corp Hgb Conc 32.2 g/dL (32-36); Mean Corpuscular Hgb 30.7 pg (27.0-32.0); Mean Corpuscular Volume 95.5 fL (81-99); Mean Platelet Vol. 8.9 fl (6.2-12.0); Monocyte# 1.11 X10^3/uL; NRBC Flagged by Analyzer 0 % (0-5); Neutrophil # 6.15 X10^3/uL (2.7-7.7); Neutrophil % 61.1 % (47-70); Platelet Count 206 K/mm3 (150-450); RBC Distribution Width CV 13.9 % (11.6-14.6); RBC Distribution Width SD 48.9 fl (35.1-43.9); Red Blood Count 3.74 M/mm3 (4.2-5.4); White Blood Count 10.1 K/mm3 (4.4-11.0)
== END | disposition home or self-care (01) ==
LOC: LAB 15:01
PROVIDERS: PCP Family Medicine; Referring Provider Nurse Practitioner Gerontology; Visit Provider Nurse Practitioner Gerontology
DX: R07.9 Chest pain, unspecified (principal); R06.09 Other forms of dyspnea; I25.10 Atherosclerotic heart disease of native coronary artery without angina pectoris
CPT/HCPCS: 36415; 71046; 85025

== ENCOUNTER → 2023-12-09 | Outpatient (CLI) | payer MEDICARE, SELFPAY | END | disposition home or self-care (01) | LOC: LABSPEC 15:01 | PROVIDERS: PCP Family Medicine; Referring Provider Physician Assistant; Visit Provider Physician Assistant | DX: M70.52 Other bursitis of knee, left knee (principal) | CPT/HCPCS: 87070; 87075; 87077; 87186; 87205 ==

== ENCOUNTER 2023-12-22 07:23 | Day surgery (SDC) | payer MEDICARE, SELFPAY ==
[2023-12-21 08:53] VITALS: BMI 26.5
--- NOTE | 2023-12-22 09:57 | CL.D_ITS ---
Patient Name: ISATU PIRES Study Date: 12/22/2023 Performing: Mira Wood MD Ht: 60 inches 152.4 cm : 1950 Wt: 136 lbs 61.69 kg Age: 73 Gender: female BSA: 1.58 PROCEDURE(S) PERFORMED [id number])[facility] CLINICAL PROFILE AND INDICATIONS Indications: Worsening Angina Heart Failure: None Angina Classification Anginal Classification w/in 2 Weeks: CCS II CAD Presentations: Stable angina. CONCLUSIONS 70% calcified Prox Mid lad 80% Prox LCX SPRINKLER FITTER Prox RCA, RPDA filling retrogradely via collaterals from LAD, RPLV filling via collaterals from conus branch RECOMMENDATIONS Surgery consult for coronary revascularization DESCRIPTION OF PROCEDURE The patient arrived to the procedure lab. The risks and benefits of the procedure as well as a full description of our services here and current unavailability of surgical backup were fully explained to the patient and/or their significant other prior to the catheterization. The Timeout was completed, verifying the correct patient and procedure. The patient's procedural site was prepped and draped in the usual fashion. Local anesthetic was given subcutaneously to right radial region with Lidocaine 2%. Using a modified Seldinger technique, arterial access was obtained via the right radial artery, a 6Fr sheath was inserted. Right Coronary Artery selective angiography was then performed in multiple views using a 5 Fr. 4.0 Morton catheter. Left Coronary Artery selective angiography was performed in multiple views using a 5 Fr. 4.0 Morton catheter.The arterial sheath was pulled and a TR Band was applied for hemostasis CORONARY ANGIOGRAPHY DOMINANCE: Right Dominant LEFT MAIN: No significant disease noted LEFT ANTERIOR DESCENDING ARTERY: LAD: Calcified 70% Proximal lesion in LAD RIGHT CORONARY ARTERY: RCA: In-Stent Restenosis 100% Proximal lesion in RCA COLLATERAL FLOW: Collateral flow from Conus to RT LV-BR Collateral flow from LAD to RT PDA COMPLICATIONS No Complications PROCEDURE MEDICATIONS Versed 1 mg IV Fentanyl 50 mcg IV Versed 1 mg IV Aspirin (325mg) 1 Tabs PO @ 12/22/2023 08:17:06 Heparin given IA 12/22/2023 09:25:47 Verapamil 2.5mg, Ntg 200mcgs, 2000 units of Heparin given IA 12/22/2023 09:25:47 IV Bolus: .9 NaCl 250 ml total 12/22/2023 09:28:50 SUMMARY OF HEMODYNAMIC DATA Time AIR REST ECG 08:04:13 AO 116/47 (71) SA 09:35:44 09:54:06 Signed By Mira Wood MD On 12/22/2023 09:57:14 Mira Wood MD
== END 2023-12-22 11:15 | disposition home or self-care (01) ==
PROVIDERS: PCP Family Medicine; Referring Provider Internal Medicine Cardiovascular Disease; Visit Provider Internal Medicine Cardiovascular Disease
DX: I25.118 Atherosclerotic heart disease of native coronary artery with other forms of angina pectoris (principal); Z79.4 Long term (current) use of insulin; E10.22 Type 1 diabetes mellitus with diabetic chronic kidney disease; N18.30 Chronic kidney disease, stage 3 unspecified; I12.9 Hypertensive chronic kidney disease with stage 1 through stage 4 chronic kidney disease, or unspecified chronic kidney disease; E78.5 Hyperlipidemia, unspecified; G47.30 Sleep apnea, unspecified; F17.210 Nicotine dependence, cigarettes, uncomplicated; Z79.51 Long term (current) use of inhaled steroids; Z79.899 Other long term (current) drug therapy; Z79.01 Long term (current) use of anticoagulants; Z95.5 Presence of coronary angioplasty implant and graft
CPT/HCPCS: 93454; 99152; 99153; J7040; C1769; C1894

== ENCOUNTER 2024-02-26 09:50 | Outpatient (CLI) | payer MEDICARE, SELFPAY ==
[2024-02-26 12:47] LABS: Hematocrit 27.6 % (37-47); Mean Corp Hgb Conc 32.6 g/dL (32-36); Mean Corpuscular Hgb 29.9 pg (27.0-32.0); Mean Corpuscular Volume 91.7 fL (81-99); Mean Platelet Vol. 8.8 fl (6.2-12.0); Platelet Count 302 K/mm3 (150-450); RBC Distribution Width CV 14.5 % (11.6-14.6); RBC Distribution Width SD 48.1 fl (35.1-43.9); Red Blood Count 3.01 M/mm3 (4.2-5.4); White Blood Count 10.9 K/mm3 (4.4-11.0)
[2024-02-26 13:33] LABS: Anion Gap 6 (5-15); BUN 17 mg/dL (7-18); BUN/Creat Ratio 13.2 RATIO (10-20); Calcium,Total 9.2 mg/dL (8.5-10.1); Chloride 98 mmol/L (98-107); Creatinine, Serum 1.29 mg/dL (0.55-1.02); EST Glomerular Filtration Rate 43 mL/min (>60); Est Glom Filt Rate - Afr Amer 52 mL/min (>60); Glucose 180 mg/dL (74-106); Potassium 3.6 mmol/L (3.5-5.1); Sodium Level 134 mmol/L (136-145)
== END 2024-02-26 23:59 | disposition home or self-care (01) ==
PROVIDERS: PCP Family Medicine
DX: I25.10 Atherosclerotic heart disease of native coronary artery without angina pectoris (principal)
CPT/HCPCS: 36415; 80048; 85027

== ENCOUNTER → 2024-04-16 | Outpatient (CLI) | payer MEDICARE, SELFPAY ==
[2024-04-16 09:20] LABS: Mucous, Urine 0 SEEN /hpf (<or=2+)
[2024-04-16 10:00] LABS: Color, Urine Yellow (Yellow); Glucose, Dipstick Normal (Normal); Ketone-Dipstick Negative (Negative); Leukocyte Esterase-Dipstick Negative /ul (Negative); Nitrite-Dipstick Negative (Negative); Occult Blood-Urine 10 /ul (Negative); Protein-Dipstick 30 mg/dl (Negative); Urine Bilirubin Dipstick Negative (Negative); Urine Clarity Clear (Clear); Urine Urobilinogen Normal (Normal)
[2024-04-16 10:14] LABS: Microalbumin:Creatinine Ratio 245.6 mg/g CRE (<30 mg/g CRE); Protein, Urine (Random) 54.4 mg/dL (<11.9); Protein:Creat Ratio 642 mg/g CRE (0-200)
[2024-04-16 10:15] LABS: Bacteria 2+ /hpf (None Seen); Red Blood Cells-Urine 0-5 SEEN /hpf (0-5); Squamous Epithelial Cells - UA 0-5 SEEN /hpf (5-10); Transitional Epithelial - Ur 0-5 SEEN /hpf (0-5); White Blood Cells 0-5 SEEN /hpf (0-5)
[2024-04-16 10:16] LABS: Hyaline Cast 0-5 SEEN /lpf (0-5)
[2024-04-16 10:34] LABS: AST(SGOT) 13 U/L (15-37); Alanine Aminotransfer ALT/SGPT 19 U/L (13-56); Albumin, Serum 3.4 g/dL (3.2-5.0); Alkaline Phosphatase 73 U/L (45-117); Anion Gap 4 (5-15); BUN 19 mg/dL (7-18); BUN/Creat Ratio 17.6 RATIO (10-20); Calcium,Total 9.1 mg/dL (8.5-10.1); Chloride 105 mmol/L (98-107); Cholesterol 119 mg/dL (200); Creatinine, Serum 1.08 mg/dL (0.55-1.02); EST Glomerular Filtration Rate 53 mL/min (>60); Est Glom Filt Rate - Afr Amer 64 mL/min (>60); Globulin 3.5 g/dL (2.2-4.2); Glucose 88 mg/dL (74-106); High Density Lipoprotein 57 mg/dL; Potassium 4.2 mmol/L (3.5-5.1); Protein, Total 6.9 g/dL (6.4-8.2); Sodium Level 138 mmol/L (136-145); Triglycerides 79 mg/dL; Very Low Density Lipoprotein 16 mg/dL (5-40)
== END | disposition home or self-care (01) ==
LOC: LAB 09:02
PROVIDERS: Internal Medicine Cardiovascular Disease; PCP Family Medicine; Referring Provider Internal Medicine Nephrology; Visit Provider Internal Medicine Nephrology
DX: R80.9 Proteinuria, unspecified (principal); E78.2 Mixed hyperlipidemia
CPT/HCPCS: 36415; 80053; 80061; 81001; 82043; 82570; 84156

== ENCOUNTER → 2024-06-15 | Outpatient (CLI) | payer MEDICARE, SELFPAY ==
[2024-06-15 16:04] LABS: Anion Gap 7 (5-15); BUN 24 mg/dL (7-18); BUN/Creat Ratio 20.2 RATIO (10-20); Calcium,Total 9.5 mg/dL (8.5-10.1); Chloride 104 mmol/L (98-107); Creatinine, Serum 1.19 mg/dL (0.55-1.02); EST Glomerular Filtration Rate 47 mL/min (>60); Est Glom Filt Rate - Afr Amer 57 mL/min (>60); Glucose 110 mg/dL (74-106); Potassium 4.1 mmol/L (3.5-5.1); Sodium Level 140 mmol/L (136-145); T4 Free Direct 1.53 ng/dL (0.76-1.46); Thyroid Stim Hormone (TSH) 0.162 uIU/mL (0.358-3.740)
== END | disposition home or self-care (01) ==
LOC: MTLAB 13:05
PROVIDERS: PCP Family Medicine; Referring Provider Nurse Practitioner Family; Visit Provider Nurse Practitioner Family
DX: E03.9 Hypothyroidism, unspecified (principal); N18.31 Chronic kidney disease, stage 3a
CPT/HCPCS: 36415; 80048; 84439; 84443

== ENCOUNTER → 2024-08-31 | Outpatient (CLI) | payer MEDICARE, SELFPAY ==
--- NOTE | 2024-08-31 12:13 | BI_ITS ---
EXAM: SCRN MAMM (CAD)W/REDDY BILAT DATE: 08/31/2024 CLINICAL HISTORY: F, Age 73 y/o , SCREENING Mother with breast cancer. Prior left breast biopsy. BREAST CANCER RISK ASSESSMENT: Not assessed. TECHNIQUE: Bilateral screening digital breast tomosynthesis with 2D and 3D images. Computer aided detection. COMPARISON: Prior exam(s) dated prior outside examination dated November 26, 2022.. FINDINGS: TISSUE DENSITY: The breast tissue is almost entirely fatty. Bilateral Breast Mammographic Findings: No significant masses, calcifications or other abnormalities are identified. No suspicious masses, areas of developing architectural distortion, or suspicious calcifications. There has been no significant interval change. BI/SCRN MAMM (CAD)W/REDDY BILAT IMPRESSION: Right Breast: BIRADS 1 NEGATIVE. Left Breast: BIRADS 1 NEGATIVE. OVERALL FINAL ASSESSMENT: BIRADS 1 NEGATIVE RECOMMENDATION: Routine annual follow-up in 1 Year A letter with findings and recommendations will be mailed to the patient. Reading Location: [place] [id number]
--- NOTE | 2024-08-31 12:19 | BD_ITS ---
PROCEDURE: DEXA BONE DENSITY STUDY 08/31/2024 REASON FOR EXAM: F, age 73 y/o . Postmenopausal. TECHNIQUE: DXA scan of the lumbar spine and both hips, using make and model. REFERENCE LINKS: ISCD Adult Positions COMPARISON: Comparison is made with prior study dated September 12, 2008. FINDINGS: BMD and T-SCORES Lumbar spine: 1.418 g/cm2, T-Score 4.0 L1 through L4 Change from prior: Improvement of 38.3% Left femoral neck: 0.484 g/cm2, T-Score -3.2 Femoral neck comparison data not recommended for monitoring change. Left total hip: 0.672 g/cm2, T-Score -2 point Change from prior: Worsening of 16.2% Right femoral neck: 0.514 g/cm2, T-Score -3.0 Femoral neck comparison data not recommended for monitoring change. Right total hip: 0.704 g/cm2, T-Score -2.0 Change from prior: Worsening of 12% Fracture Risk Calculation: FRAX (10-year Fracture Risk) Score: FRAX scores should never be reported in a patient with osteoporosis on DEXA or for any patient that is on bone medication. The patient doesmeet the pharmacological treatment recommendations for prevention of osteoporosis BD/Dexa Bone Density Study IMPRESSION: OSTEOPOROSIS. Recommend follow-up as clinically warranted. Reading Location: [place] [id number]
[2024-08-31 13:57] LABS: Anion Gap 8 (5-15); BUN 25 mg/dL (4-19); BUN/Creat Ratio 23.5 RATIO (10-20); Calcium,Total 9.5 mg/dL (7.6-11.0); Carbon Dioxide 23.4 mmol/L (21.0-32.0); Chloride 105 mmol/L (98-108); Creatinine, Serum 1.05 mg/dL (0.70-1.20); EST Glomerular Filtration Rate 57 (>60); Glucose 245 mg/dL (70-99); Potassium 5.3 mmol/L (3.3-5.1); Sodium Level 137 mmol/L (133-145)
[2024-08-31 15:27] LABS: Protein, Urine (Random) 9.9 mg/dL (0.0-12.0); Protein:Creat Ratio 123 mg/g CRE (0-200)
== END | disposition home or self-care (01) ==
LOC: OPBI 12:06
PROVIDERS: PCP Family Medicine; Referring Provider Family Medicine; Visit Provider Family Medicine
DX: Z78.0 Asymptomatic menopausal state (principal); R80.9 Proteinuria, unspecified; Z12.31 Encounter for screening mammogram for malignant neoplasm of breast
CPT/HCPCS: 36415; 77063; 77067; 77080; 80069; 82570; 84156

== ENCOUNTER → 2024-09-13 | Outpatient (CLI) | payer MEDICARE, SELFPAY ==
--- NOTE | 2024-09-13 12:54 | CT_ITS ---
PROCEDURE: LOW DOSE CT LUNG SCREENING 09/13/2024 REASON FOR EXAM: LUNG CANCER SCREENING TECHNIQUE: Low Dose CT Lung screening without contrast. Coronal and Sagittal reconstruction series were provided. One or more dose reduction techniques were used (e.g., Automated exposure control, adjustment of the mA and/or kV according to patient size, use of iterative reconstruction technique). REFERENCE LINK: [employer] Lung-RADS RADIATION DOSE SUMMARY: CTDlvol: 1.59 mGy DLP: 46.45 mGycm COMPARISON: 01/06/2023 FINDINGS: Note that evaluation of the vasculature, [place], and soft tissues is limited in the absence of IV contrast. Heart/pericardium: Severe three-vessel coronary atherosclerosis and/or stents post interval sternotomy. Mild aortic and trace mitral annular calcification. Abandoned epicardial pacing leads. Aorta: Mild/moderate calcific atherosclerosis.. Pulmonary arteries: Unremarkable. Lymph nodes: Precarinal node, 10 mm short axis, previously 9 mm.. Lungs/pleura: Accessory fissure in the RIGHT lower lobe, normal variant. Similar 2 mm RIGHT middle lobe micronodule (series 2, image 107). Similar 3 mm subpleural micronodule in the RIGHT upper lobe (image 64). Few additional sub 3 mm micronodules unchanged. Airways: Unremarkable. Chest wall: Interval sternotomy as above. Sternal and manubrial margins remain ununited. Nonspecific mild surrounding subcutaneous stranding mostly within the presternal and subxiphoid regions, possible scarring. Upper abdomen: Grossly unremarkable. Musculoskeletal: Suspected demineralization. Multilevel spondylosis.. CT/Low Dose CT Lung Screening IMPRESSION: 1. Lung-RADS category: 2S (negative); continue annual screening with LDCT. 2. Other clinically significant or potentially significant non-lung cancer find ings: Severe three-vessel coronary atherosclerosis and/or stents post interval sternotomy with ununited sternal margins and mild a djacent soft tissue thickening. These findings may reflect scarring however correlation for superimposed infection is warrante d. 3. Borderline minimal mediastinal lymphadenopathy, nonspecific and potentially reactive in the absence of known malignancy. Correlate with medical history and recommend attention on above follow-up. 4. Additional description as above. Recommendations per [employer]. Lung CT Screening Reporting and Data System (Lung-RADS) v. 2021 Reading Location: [id number]
== END | disposition home or self-care (01) ==
LOC: CT 12:54
PROVIDERS: PCP Family Medicine; Referring Provider Nurse Practitioner Family; Visit Provider Nurse Practitioner Family
DX: Z12.2 Encounter for screening for malignant neoplasm of respiratory organs (principal); Z87.891 Personal history of nicotine dependence
CPT/HCPCS: 71271

== ENCOUNTER 2024-10-25 13:46 | Outpatient (CLI) | payer MEDICARE, SELFPAY ==
[2024-10-25 14:02] VITALS: BP 117/51; PULSE 89; RESP 16; TEMP 35.9; O2SAT 99; BMI 25.4
[2024-10-25] MEDS: Zoledronic Acid 5 MG 100 ML 300 MG IV (14:12)
[2024-10-25 14:47] VITALS: BP 124/86; PULSE 58; RESP 16; TEMP 35.8; O2SAT 100
== END 2024-10-25 23:59 | disposition home or self-care (01) ==
LOC: MEDOUTP 13:47
PROVIDERS: PCP Family Medicine; Referring Provider Nurse Practitioner Family; Visit Provider Nurse Practitioner Family
DX: M81.0 Age-related osteoporosis without current pathological fracture (principal)
CPT/HCPCS: 96365; A4216; J3489

== ENCOUNTER → 2024-12-21 | Outpatient (CLI) | payer MEDICARE, MEDICAID, SELFPAY ==
--- NOTE | 2024-12-21 10:40 | RAD_ITS ---
PROCEDURE: CHEST PA AND LATERAL 12/21/2024 REASON FOR EXAM: MASS IN S/P CABG INCISION, L STERNAL BORDER TECHNIQUE: CHEST PA AND LATERAL COMPARISON: 12/08/2023 FINDINGS: Median sternotomy wires. No focal consolidation. No pleural effusion or pneumothorax. Cardiac silhouette is within normal limits. Evidence of prior CABG. No acute fractures. RAD/Chest PA and Lateral IMPRESSION: No focal consolidations. Consider CT for further evaluation if there is concer n for sternal abnormalities or postoperative complications. Reading Location: [id number]
--- OUTSIDE RECORDS SUMMARY | 2024-12-21 19:19 | XMS RPT_ITS | CCD ---
Author Organization [facility] Care Team Providers Care Occupational Therapy Manager Name Role Phone Sandy Braswell MD Primary Care Provider Unavailable Primary Care Provider Unavailabl e Sandy Braswell MD Primary Care Provider Sandy Braswell MD Primary Care Provider Sandy Braswell MD Primary Care Provider Dr. Gian Jones Referring Provider Dr. Angel Palumbo Attending Provider Dr. Sandy Braswell Primary Care Provider Dr. Sandy Braswell Referring Provider LAURA Dominguez Attending Provider Carolann Sullivan Attending Provider Unavailable Dr. Sandy Braswell Primary Care Provider Dr. Sandy Braswell Referring Provider LAURA Dominguez Attending Provider Carolann Sullivan Attending Provider Unavailable Dr. Mira Wood Attending Provider LAURA Dominguez Referring Provider Dr. Henry Walter Attending Provider Dr. Thony Nielsen Attending Provider Dr. Yunier Carpenter Attending Provider Dr. Sandy Braswell Primary Care Provider Michaelle, Dr. Garcia Referring Provider LAURA Dominguez Attending Provider Dr. Henry Walter Attending Provider [phone] Henry Walter Referring Provider [phone] Henry Walter Other Provider Michaelle, Dr. Garcia Primary Care Provider Michaelle, Dr. Garcia Referring Provider Dr. Thony Nielsen Attending Provider Tatyana CAPSULE MACHINE OPERATORLAURA Attending Provider Dr. Mira Wood Attending Provider Michaelle, Dr. Garcia Referring Provider Dr. Henry Walter Attending Provider 1([facility])-[phone] Michaelle, Dr. Garcia Primary Care Provider Saba, Dr. Figueroa Referring Provider 1([facility])-[phone] LAURA Joe NP Referring Provider 1([facility] )[phone] LAURA Dominguez Attending Provider [facility] LAURA HAWKINS Attending Provider Michaelle, Dr. Garcia Primary Care Provider Michaelle, Dr. Garcia Referring Provider 1([facility])[phone] LAURA Dominguez Attending Provider [phone] Hannah Rivera OD Unavailable Sandy Braswell MD Primary Care Provider MAYOR, SUSANA Referring Unavailable MICHAELLE, SANDY Primary Care Unavailable MAYOR, SUSANA Attending Unavailable MAYOR, SUSANA Admitting Unavailable MAYOR, SUSANA Attending Unavailable MICHAELLE, SANDY Primary Care Unavailable ZMEILI, WINTER Consulting Unavailable ARVIND, WENDY Consulting Unavailable MAYOR, SUSANA Attending Unavailable MAYOR, SUSANA Referring Unavailable MICHAELLE, SANDY Primary Care Unavailable MAYOR, SUSANA Referring Unavailable MICHAELLE, SANDY Primary Care Unavailable MAYOR, SUSANA Attending Unavailable MICHAELLE, SANDY Referring Unavailable MICHAELLE, SANDY Primary Care Unavailable BARTOLO GAITAN Attending Unavailable MICHAELLE, SANDY Primary Care Unavailable BARTOLO GAITAN Attending Unavailable MICHAELLE, SANDY Primary Care Unavailable SANDY BRASWELL Attending Unavailable MICHAELLE, SANDY Primary Care Unavailable Haagen SLOT FLOORPERSON.ADVANCED CLINICAL SPECIALIST, Flaca Unavailable Suppan SLOT FLOORPERSON.ADVANCED CLINICAL SPECIALIST, Ruma A Unavailable [phone] Suppan SLOT FLOORPERSON.ADVANCED CLINICAL SPECIALIST, Ruma A Unavailable Michaelle SIBLEY, Dr. Garcia Primary Care Provider Michaelle SIBLEY, Dr. Garcia Referring Provider Alberto CAPSULE MACHINE OPERATOR-C, Itzel Attending Provider Alberto CAPSULE MACHINE OPERATOR-C, Itzel Referring Provider Michaelle SIBLEY, Dr. Garcia Attending Provider Michaelle SIBLEY, Dr. Garcia Primary Care Provider Michaelle SIBLEY, Dr. Garica Referring Provider Alberto CAPSULE MACHINE OPERATOR-C, Itzel Attending Provider Tatyana CAPSULE MACHINE OPERATOR-C, Yael Attending Provider Tatyana CAPSULE MACHINE OPERATOR-C, Yael Referring Provider Aly CAPSULE MACHINE OPERATOR-C, Janessa Attending Provider Venessa Arteaga Attending Provider Alberto CAPSULE MACHINE OPERATOR-C, Itzel Referring Provider PROVIDER, UNKNOWN Admitting Unavailable PROVIDER, UNKNOWN Attending Unavailable SANDY BRASWELL Primary Care Unavailable MICHAELLE, SANDY Dang Primary Care Unavailable ADRIEL SOLIS Referring Unavailable MICHAELLE, SANDY Dang Primary Care Unavailable ADRIEL SOLIS Referring Unavailable FLACA FISCHER Attending Unavailable MICHAELLE, SANDY Dang Primary Care Unavailable MICHAELLE, SANDY Dang Primary Care Unavailable ADRIEL SOLIS Attending Unavailable MICHAELLESANDY Primary Care Unavailable MICHAELLE, SANDY Dang Primary Care Unavailable ANGI MARTIN Referring Unavailable MICHAELLE, SANDY Dang Primary Care Unavailable ANGI MARTIN Referring Unavailable MICHAELLE, SANDY Dang Primary Care Unavailable RACHEL JEAN Attending Unavailable HANNAH RIVERA Attending Unavailable MICHAELLE, SANDY Dang Primary Care Unavailable MICHAELLE, SANDY Dang Primary Care Unavailable MICHAELLE, SANDY Dang Attending Unavailable MICHAELLE, SANDY Dang Primary Care Unavailable MICHAELLE, SANDY Dang Attending Unavailable ADRIEL SOLIS Attending Unavailable SELF Referring Unavailable MICHAELLE, SANDY J Primary Care Unavailable Itzel Dominguez Attending Unavailable [place], Sandy Referring Unavailable [facility] Primary Care Unavailable Tatyana CAPSULE MACHINE OPERATOR, Yael Referring Unavailable Tatyana CAPSULE MACHINE OPERATOR, Yael Attending Unavailable [facility] Primary Care Unavailable Itzel Dominguez Referring Unavailable AlbertoItzel Attending Unavailable [facility] Primary Care Unavailable Israel, Mira Referring Unavailable Israel, Mira Attending Unavailable [facility] Primary Care Unavailable [place], Mira Attending Unavailable [facility] Primary Care Unavailable [place], Sandy Referring Unavailable AlbertoItzel Attending Unavailable [place], Sandy Referring Unavailable [facility] Primary Care Unavailable [facility] Primary Care Unavailable KARRIE, SUSANA Dang Referring Unavailable SUSANA YOON Attending Unavailable [place], Mira Consulting Unavailable Bunny, Jayaprakas Referring Unavailable BunnyChemas Attending Unavailable [facility] Primary Care Unavailable [place], Mira Referring Unavailable [place], Mira Attending Unavailable [facility] Primary Care Unavailable Gian Katz Attending Unavailable [facility] Primary Care Unavailable [place], Sandy Referring Unavailable Itzel Dominguez Attending Unavailable [facility] Primary Care Unavailable [facility] Primary Care Unavailable [place], [facility] Referring Unavailable Aly HAWKINS, Janessa Attending Unavailable Itzel Dominguez Referring Unavailable [facility] Primary Care Unavailable Itzel Dominguez Attending Unavailable [facility] Primary Care Unavailable Aly CAPSULE MACHINE OPERATOR, Janessa Referring Unavailable Aly HAWKINS, Janessa Attending Unavailable Teetee Inman Referring Unavailable [facility] Primary Care Unavailable Teetee Inman Attending Unavailable [facility] Primary Care Unavailable Venessa Patino Referring Unavailable Venessa Patino Attending Unavailable [facility] Primary Care Unavailable [place], Sandy Referring Unavailable [place], Sandy Attending Unavailable Itzel Dominguez Attending Unavailable [facility] Referring Unavailable [facility] Primary Care Unavailable Tatyana CAPSULE MACHINE OPERATOR, Yael Referring Unavailable Tatyana CAPSULE MACHINE OPERATOR, Yael Attending Unavailable [facility] Primary Care Unavailable Lu CAPSULE MACHINE OPERATOR, Janessa Attending Unavailable [facility] Primary Care Unavailable [facility] Referring Unavailable PatinoVenessa Attending Unavailable [place], Sandy Referring Unavailable [facility] Primary Care Unavailable [facility] Primary Care Unavailable [place], [facility] Referring Unavailable Carolann Rodriguez Attending Unavail able [facility] Primary Care Unavailable [facility] Referring Unavailable Itzel Dominguez Attending Unavailable Allergies Allergy Classification Reported Allergen(s) Allergy Type Date of Onset Reaction(s) Facility Unclassified (20 sources) enviromental [Other] Propensity to adverse reactions 1 Itching [facility] Work Phone: (1 source) OTHER; Translations: [OTHER] Propensity to adverse reactions (disorder) 1 [facility] Repository Medications Current Medications Medication Drug Class(es) Dates Sig (Normalized) Sig (Original) acetaminophen 325 mg / HYDROcodone bitartrate 7.5 mg oral tablet (20 sources) Opioid Agonist Start: 03-14-2022 take 1 tablet by mouth every six hours Hydrocodone-Aceta minophen Active 1 TABLET PO EVERY 6 HOURS March 13, 2022 11:00pm Start: 03-14-2022 End: 06-16-2022 take 1 tablet by mouth every six hours Hydrocodone-Acetaminophen Discontinued 1 TABLET PO EVERY 6 HOURS March 13, 2022 11:00pm June 16, 2022 10:51am Start: 01-27-2022 End: 08-03-2024 Hydrocodone-Acetaminophen 7. 5-325 mg tablet Active 1 {tbl} PO EVERY 6 HOURS as needed for Pain 0 March 14, 2022 12:00am Start: 07-03-2014 End: 07-14-2022 Hydrocodone-Acetaminophen 5- 325 mg tablet Discontinued 1 {tbl} PO EVERY 6 HOURS as needed 0 March 14, 2022 12:00am June 16, 2022 11:51am End: 11-08-2024 take 1 tablet by mouth every twelve hours HYDROcodone-Acetaminophen (NORCO) 10-325 mg per tablet Take 1 tablet by mouth every 12 hours. 0 11/08/2024 Discontinued Comment on above: Take 1 tablet by jeannie th every 6 hours as needed. Take 1 tablet by jeannie th every 6 hours as needed for pain for up to 30 days. acetaminophen 325 mg / oxyCODONE hydrochloride 5 mg oral tablet (2 sources) Opioid Agonist Start: 11-08-2024 End: 11-13-2024 take 1 tablet by mouth four times daily as needed for pain oxyCODONE-acetaminop hen (PERCOCET) 5-325 mg tablet Indications: Incisional hernia, without obstruction or gangrene Take 1 tablet by mouth four times a day as needed for pain for up to 5 days. FOR PAIN. 20 tablet 11/08/2024 11/13/2024 Active End: 11-08-2024 take 1 tablet by mouth every eight hours as needed oxyCODONE-acetaminophen (PERCOCET) 5-325 mg tablet Take 1 tablet by mouth every 8 hours as needed for pain. 0 11/08/2024 Discontinued [id number] 200 actuat albuterol 0.09 mg/actuat metered dose inhaler (20 sources) beta2-Adrenergic Agonist Start: 09-19-2022 take 2 puff(s) by inhalation every four hours as needed for wheezing albuterol HFA (VENTOLIN HFA) 90 mcg/actuation inhaler Indications: Chronic obstructive pulmonary disease, unspecified COPD type (HCC) Inhale 2 Puffs as instructed every 4 hours as needed for wheezing/shortness of breath. 3 Each 3 09/19/2022 Active Start: 03-14-2022 take 90 ug by inhala tion once daily Albuterol Active 90 MCG INHALATION DAILY March 13, 2022 11:00pm Start: 03-14-2022 take 90 ug by inhala tion once daily Albuterol Active 90 MCG INHALATION DAILY March 14, 2022 12:00am Start: 03-14-2022 Albuterol Acti ve MCG INHALATION March 14, 2022 12:00am Start: 03-14-2022 Albuterol Acti ve MCG INHALATION March 13, 2022 11:00pm Start: 12-23-2021 End: 09-19-2022 VENTOLIN HFA 90 mcg/actuatio n inhaler Inhale as instructed. 12/23/2021 09/19/2022 Discontinued Start: 12-23-2021 VENTOLIN HFA 9 0 mcg/actuation inhaler Comment on above: Inhale as instructed . Inhale 2 Puffs as in structed every 4 hours as needed for wheezing/shortness of breath. Albuterol 90 mcg/actuation aerosol (5 sources) Start: 2 take 90 ug by inhalation once daily Albuterol 90 mcg/actuation aerosol Active 90 ug INHALATION DAILY March 14, 2022 12:00am ascorbic acid 1000 mg oral capsule (20 sources) Vitamin C Start: 5 take 1 g by mouth every six hours Ascorbic Acid (Vitamin C) 1,000 mg capsule Active 1 g PO EVERY 6 HOURS June 13, 2024 1:00am take 1 tablet by mouth once kole y Ascorbic Acid (VITAMIN C) 1,000 mg tablet Take 1,000 mg by mouth once daily. Active aspirin 81 mg delayed release oral tablet (20 sources) Platelet Aggregation Inhibitor, Nonsteroidal Anti-inflammatory Drug Start: 04-12-2024 take 1 tablet by mouth once daily aspirin, enteric coated (ASPIRIN, ENTERIC COATED) 81 mg EC tablet Take 1 tablet by mouth once daily. 07/14/2024 Active biotin 10 mg oral capsule (20 sources) take 1 capsule by mouth once daily Biotin 10,000 mcg cap Take 10,000 mcg by mouth once daily. Active carvedilol 3.125 mg oral tablet (20 sources) alpha-Adrenergic Anmol, beta-Adrenergic Anmol Start: 04-12-2024 End: 05-26-2024 take 1 tablet by mouth twice daily at mealtime carvedilol (COREG) 3.125 mg tablet Take 3.125 mg by mouth two times a day with meals. 05/26/2024 Active cholecalciferol 0.25 mg oral capsule (5 sources) Vitamin D Start: 06-13-2024 take 1 capsule by mouth once daily Cholecalciferol (Vitamin D3) 250 mcg (10,000 unit) capsule Active 250 ug PO daily June 13, 2024 1:00am cholecalciferol, vitamin D3, (VITAMIN D3 ORAL) (20 sources) take 250 ug by mouth once daily cholecalciferol, vitamin D3, (VITAMIN D3 ORAL) Take 250 mcg by mouth once daily. Active citalopram 40 mg oral tablet (20 sources) Serotonin Reuptake Inhibitor Start: 03-14-2022 End: 07-25-2022 Citalopram 40 mg tablet Discontinued 20 mg PO DAILY March 14, 2022 12:00am July 25, 2022 5:21pm Start: 03-14-2022 End: 07-25-2022 take 20 mg by mouth once daily Citalopram Discontinued 20 MG PO DAILY March 13, 2022 11:00pm July 25, 2022 4:21pm Start: 03-07-2022 End: 12-13-2024 take 1 tablet by mouth once daily citalopram (CELEXA) 40 mg tablet Indications: Depression Take 1 tablet by mouth once daily. 90 tablet 3 12/14/2023 Active Start: 09-25-2014 End: 03-07-2022 take 1.5 tablets by mouth once daily citalopram (CELEXA) 40 mg tablet Indications: Depression Take 1.5 tablets by mouth once daily. 135 tablet 3 09/25/2014 03/07/2022 Discontinued Comment on above: Take 1.5 tablets by mouth once daily. Take 1 tablet by jeannie th once daily. Coenzyme [id number]-[id number] E 100-100 mg-unit capsule (5 sources) Start: 5 Coenzyme G87-[id number] E 100-100 mg-unit capsule Active NMA PO June 13, 2024 1:00am doxycycline monohydrate 100 mg oral tablet (1 source) Tetracycline-clas s Drug Start: End: take 1 tablet by mouth twice daily doxycycline monohydrate 100 mg tablet Indications: Cellulitis of knee Take 1 tablet by mouth two times a day for 10 days. 20 tablet 0 12/14/2023 12/24/2023 Active ferrous bis-glycinate chelate (IRON BISGLYCINATE CHELATE ORAL) (20 sources) take 18 mg by mouth once daily ferrous bis-glycinate chelate (IRON BISGLYCINATE CHELATE ORAL) Take 18 mg by mouth once daily. Active ferrous gluconate (5 sources) Start: 5 take 1 tablet by mouth once daily Ferrous Gluconate 325 mg (37 mg iron) tablet Active 18 mg PO daily June 13, 2024 1:00am gabapentin 100 mg oral capsule (20 sources) Anti-epileptic Agent Start: 4 End: take 1 capsule by mouth three times daily gabapentin (NEURONTIN) 100 mg capsule Take 1 capsule by mouth three times a day for 30 days. 90 capsule 11/21/2024 12/21/2024 Active Start: 09-07-2014 End: 07-08-2024 take 1 tablet by mouth twice daily Gabapentin 800 mg tablet Discontinued 800 mg PO TWICE A DAY March 14, 2022 12:00am April 12, 2024 2:52pm Comment on above: Take 1 tablet by jeannie th twice daily. Take 1 tablet by jeannie th twice daily for 180 days. Take 1 tablet by jeannie th two times a day for 180 days. GUARDIAN 4 GLUCOSE SENSOR sherry (5 sources) Start: 11-10-2024 GUARDIAN 4 GLUCOSE SENSOR sherry 11/10/2024 Active insulin aspart, human 100 unt/ml injectable solution (20 sources) Insulin Analog Start: 08-15-2024 Insulin Aspart (Niacinamide) (Fiasp U-100 Insulin) 100 unit/mL solution Active 75 U SC .continuous 30 5 August 15, 2024 12:00am Type 1 diabetes mellitus with hyperglycemia Type 1 diabetes mellitus with hyperglycemia to be used in insulin pump Start: 07-27-2024 Insulin Aspart (Niacinamide) (Fiasp Flextouch U-100 Insulin) 100 unit/mL (3 mL) insulin pen Active 14 U SC THREE TIMES A DAY 12.6 5 July 27, 2024 11:40am Type 1 diabetes mellitus with hyperglycemia Type 1 diabetes mellitus with hyperglycemia Start: 04-12-2024 End: 07-27-2024 Insulin Aspart (Niacinamide) (Fiasp Flextouch U-100 Insulin) 100 unit/mL (3 mL) insulin pen Discontinued 14 U SC THREE TIMES A DAY April 12, 2024 2:53pm July 27, 2024 11:41am before breakfast and lunch; 6unit before dinner Start: 08-01-2022 End: 10-13-2024 FIASP FLEXTOUCH U-100 INSULI N 100 unit/mL (3 mL) pen Inject as directed: small meal 5-6units; medium meal 6-7 units; large meal 8-[address] Palumbo. 07/13/2023 10/13/2024 Discontinued Start: 08-01-2022 End: 04-12-2024 Insulin Aspart (Niacinamide) (Fiasp Flextouch U-100 Insulin) 100 unit/mL (3 mL) insulin pen Discontinued 18 U SC THREE TIMES A DAY 18 October 29, 2023 4:23pm April 12, 2024 2:57pm Start: 07-14-2022 End: 07-25-2022 Insulin Aspart (Niacinamide) (Fiasp U-100 Insulin) 100 unit/mL solution Discontinued 15 U SC THREE TIMES A DAY 20 3 July 14, 2022 1:00am July 25, 2022 5:16pm Start: 09-07-2014 End: 01-27-2022 inject 10 [IU] by subcutaneous injection three times daily at mealtime insulin aspart (NOVOLOG) 100 unit/mL soln Indications: 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 3 Vial 3 09/07/2014 01/27/2022 Discontinued (Other) Comment on above: Inject 10 Units subc utaneously three times daily with meals. INJECT 18 UNITS SUBC UTANEOUSLY 3 TIMES DAILY Inject 12-18 Units s ubcutaneously three times daily before meals. Inject as directed: small meal 5-6units; medium meal 6-7 units; large meal 8-[address] Palumbo. iv contrast (will be provided with radiology test) (1 source) Start: 2021 End: 2021 inject 1 dose intravenously once iv contrast (will be provided with radiology test) CTA ABD/PEL LE - No IV access, insert saline lock prior to the sedation, infusion, injection for imaging exam. Discontinue saline lock post exam. If Pt. has a central line or IVAD, may access for administration according to line specific nursing protocol. Once exam is complete flush line and de-access according to line specific nursing protocol in the CT contrast administration guidelines link. 1 Each 0 04/29/2022 04/30/2022 Active Comment on above: CTA ABD/PEL LE - No IV access, insert saline lock prior to the sedation, infusion, injection for imaging exam. Discontinue saline lock post exam. If Pt. has a central line or IVAD, may access for administration according to line specific nursing protocol. Once exam is complete flush line and de-access according to line specific nursing protocol in the CT contrast administration guidelines link. levothyroxine sodium 0.075 mg oral tablet (20 sources) l-Thyroxine Start: 2024 End: 2024 take 1 tablet by mouth once levothyroxine (SYNTHROID) 75 mcg tablet Take 1 tablet by mouth every afternoon. 06/16/2024 Active Start: 12-01-2023 End: 06-16-2024 take 0.5 tablet by mouth once daily Levothyroxine 100 mcg tablet Discontinued 100 ug PO .qd / on SundaysMay 27, 2024 9:08am June 16, 2024 1:53pm Start: 03-14-2022 End: 11-14-2022 take 1 capsule by mouth once daily Levothyroxine 100 mcg capsule Discontinued 100 ug PO DAILY March 14, 2022 12:00am November 14, 2022 3:31pm Start: 12-23-2020 End: 08-03-2024 take 1 tablet by mouth once daily Levothyroxine 100 mc g tablet Discontinued 100 ug PO DAILY 90 May 20, 2023 2:24pm December 01, 2023 1:42pm Start: 10-27-2014 End: 01-27-2022 take 1 tablet by mouth once daily levothyroxine (SYNTH ROID) 137 mcg tablet TAKE 1 TABLET BY MOUTH ONCE DAILY. 90 tablet 3 10/27/2014 01/27/2022 Discontinued (Other) Start: 08-11-2014 End: 01-27-2022 take 1 tablet by mouth once daily for thyroid dysfunction levothyroxine (SYNTHROID) 125 mcg tablet Indications: Hypothyroid Take 1 tablet by mouth once daily. Take on empty stomach. For Thyroid 90 tablet 0 08/11/2014 01/27/2022 Discontinued (Other) Comment on above: Take 1 tablet by jeannie th once daily. Take on empty stomach. For Thyroid TAKE 1 TABLET BY JEANNIE TH ONCE DAILY. Take 100 mcg by mout h once daily. lisinopril 20 mg oral tablet (20 sources) Angiotensin Converting Enzyme Inhibitor Start: 09-12-2024 take 1 tablet by mouth once daily Lisinopril 20 mg tablet Active 20 mg PO daily September 12, 2024 12:00am Start: 09-15-2022 End: 04-12-2024 take 1 tablet by mouth once daily Lisinopril 20 mg tablet Discontinued 20 mg PO DAILY 90 0 September 15, 2022 12:00am April 12, 2024 2:55pm Start: 08-22-2022 End: 08-03-2024 take 1 tablet by mouth once daily lisinopril (ZESTRIL) 40 mg tablet Take 40 mg by mouth once daily. 08/22/2022 08/03/2024 Discontinued Start: 06-26-2022 End: 07-25-2022 take 1 tablet by mouth once daily Lisinopril 20 mg tablet Discontinued 20 mg PO DAILY 90 June 26, 2022 1:00am July 25, 2022 5:18pm Hypertension Type 1 diabetes mellitus with hyperglycemia Essential (primary) hypertension Type 1 diabetes mellitus with hyperglycemia Comment on above: Take 40 mg by mouth once daily. magnesium glycinate 100 mg oral tablet (20 sources) Start: 06-13-2024 Magnesium Glycinate 100 mg tablet Active 500 mg PO daily June 13, 2024 1:00am take 500 mg by mouth once daily MAGNESIUM GLYCINATE ORAL Take 500 mg by mouth once daily. Active melatonin 12 mg oral tablet (20 sources) take 1 tablet by mouth once daily at bedtime melatonin 12 mg tab Take 12 mg by mouth daily at bedtime. Active nitroglycerin 0.4 mg sublingual tablet (20 sources) Nitrate Vasodilator Start: 03-14-20 End: 07-28-19 take 1 tablet under the tongue once Nitroglycerin 0.4 mg tablet, sublingual Active 0.4 mg SL ONCE 23 08July 28, 2022 10:52am as a single dose; administer 5-10 minutes before situation known to precipitate angina attack Start: 03-14-2022 End: 07-28-2022 Nitroglycerin Active 0.4 MG SL ONCE July 28, 2022 9:52am as a single dose; administer 5-10 minutes before situation known to precipitate angina attack Start: 07-03-2014 End: 11-21-2024 nitroglycerin sublingual (NI TROQUICK) 0.4 mg SL tablet Indications: Status post coronary artery stent placement Dissolve 1 tablet under the tongue as needed. DISSOLVE ON TONGUE FOR CHEST PAIN. IF NO PAIN RELIEF, CALL 911 25 tablet 3 11/21/2024 Active Comment on above: Dissolve 1 tablet un debora the tongue as needed. DISSOLVE ON TONGUE FOR CHEST PAIN. IF NO PAIN RELIEF, CALL 911 pantoprazole 40 mg delayed release oral tablet (20 sources) Proton Pump Inhibitor Start: 2 End: take 1 tablet by mouth once daily pantoprazole DR (PROTONIX) 40 mg tablet Take 1 tablet by mouth once daily. 90 tablet 3 12/14/2023 Active Comment on above: Take 40 mg by mouth once daily. Take 1 tablet by jeannie th once daily. phenylephrine hydrochloride 25 mg/ml ophthalmic solution (10 sources) alpha-1 Adrenergic Agonist Start: 5 End: PHENYLephrine 2.5 % 1 drop (AK-DILATE, BHUPENDRA-SYNEPHRINE) Start: 11-15-2024 End: 11-15-2024 1 drop, BOTH EYES, DIRECT ED, Starting on Thu11/15/24 at 0930, Until Thu11/15/24 at 2129, Administer for dilation PROTECT FROM LIGHT Start: 11-19-2023 End: 11-19-2023 PHENYLephrine 2.5 % 1 Drop ( AK-DILATE, BHUPENDRA-SYNEPHRINE) Start: 11-11-2023 End: 11-12-2023 PHENYLephrine 2.5 % 1 Drop ( AK-DILATE, BHUPENDRA-SYNEPHRINE) Start: 11-05-2023 End: 11-06-2023 PHENYLephrine 2.5 % 1 Drop ( AK-DILATE, BHUPENDRA-SYNEPHRINE) Start: 09-03-2023 End: 09-04-2023 PHENYLephrine 2.5 % 1 Drop ( AK-DILATE, BHUPENDRA-SYNEPHRINE) Start: 08-13-2023 End: 08-14-2023 PHENYLephrine 2.5 % 1 Drop ( AK-DILATE, BHUPENDRA-SYNEPHRINE) Start: 02-07-2022 End: 02-07-2022 PHENYLephrine 2.5 % 1 Drop ( AK-DILATE, BHUPENDRA-SYNEPHRINE) polyethylene glycol 3350 [id number] mg / potassium chloride 2970 mg / sodium bicarbonate 6740 mg / sodium chloride 5860 mg / sodium sulfate 84147 mg powder for oral solution (6 sources) Osmotic Laxative Start: 09-28-2024 take 4000 mL by mouth once daily GAVILYTE-G 236-22.74-6.74 -5.86 gram suspension Take 4,000 mL by mouth once daily. 09/28/2024 Active Start: 09-28-2024 End: 09-28-2024 peg 3350-Electrolytes (GOLYT PAPI) 236-22.74-6.74 -5.86 gram suspension Take 4,000 mL by mouth one time only for 1 dose. 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 10 mL 7 02/07/2022 Active Comment on above: Use 1 Drop in both e yes every 2 hours while awake. polyvinyl alcohol 0.014 ml/ml ophthalmic solution (20 sources) Start: 03-14-2022 Polyvinyl Alcohol 1.4 % drops Active 1 NMA OPHTHALMIC 2 to 4 times per day March 14, 2022 12:00am POLYVINYL ALCOHO L (20/20 ARTIFICIAL TEARS OPHTHALMIC) Use in eyes as needed. Active POLYVINYL ALCOHO L (20/20 ARTIFICIAL TEARS OPHTHALMIC) Use in eyes as needed. 0 Active Comment on above: Use in eyes as neede d. proparacaine hydrochloride 5 mg/ml ophthalmic solution (9 sources) Local Anesthetic Start: 11-15-2024 End: 11-15-2024 proparacaine 0.5 % 1 drop (ALCAINE) Start: 11-15-2024 End: 11-15-2024 1 drop, BOTH EYES, DIRECT ED, Starting on Thu11/15/24 at 0930, Until Thu11/15/24 at 212, Administer for pneumo tonometry, tonopen tonometry, or pachymetry. In the event of a proparacaine shortage, administer tetracaine 0.5% ophthalmic drops 1 drop in the left eye as directed for pneumo tonometry, tonopen tonometry, or pachymetry Start: 11-19-2023 End: 11-19-2023 proparacaine 0.5 % 1 Drop (A LCAINE) Start: 11-11-2023 End: 11-12-2023 proparacaine 0.5 % 1 Drop (A LCAINE) Start: 11-05-2023 End: 11-06-2023 proparacaine 0.5 % 1 Drop (A LCAINE) Start: 09-03-2023 End: 09-04-2023 proparacaine 0.5 % 1 Drop (A LCAINE) Start: 08-13-2023 End: 08-14-2023 proparacaine 0.5 % 1 Drop (A LCAINE) rosuvastatin calcium 40 mg oral tablet (20 sources) HMG-CoA Reductase Inhibitor Start: 12-25-2020 End: 12-12-2025 take 1 tablet by mouth once daily rosuvastatin (CRESTOR) 40 mg tablet Take 1 tablet by mouth once daily. 90 tablet 3 12/12/2024 12/12/2025 Active Comment on above: Take 40 mg by mouth once daily. Take 1 tablet by jeannie th once daily. Selenium 100 mcg tab (20 sources) take 1 tablet by mouth once daily Selenium 100 mcg tab Take 100 mcg by mouth once daily. Active Selenium 200 mcg capsule (5 sources) Start: 06-13-2024 take 1 capsule by mouth once daily Selenium 200 mcg capsule Active 200 ug PO daily June 13, 2024 1:00am traZODone hydrochloride 50 mg oral tablet (20 sources) Serotonin Reuptake Inhibitor Start: 01-20-2023 End: 12-12-2025 take 1 tablet by mouth every twenty-four hours as needed traZODone (DESYREL) 50 mg tablet Take 1 tablet by mouth at bedtime as needed. 90 tablet 3 12/12/2024 12/12/2025 Active Comment on above: Take 1 tablet by jeannie th daily at bedtime. prn TAKE 1 TABLET BY JEANNIE TH DAILY AT BEDTIME NEEDED tropicamide 10 mg/ml ophthalmic solution (10 sources) Anticholinergic Start: 11-15-2024 End: 11-15-2024 tropicamide 1 % 1 drop (MYDRIACYL) Start: 11-15-2024 End: 11-15-2024 1 drop, BOTH EYES, DIRECT ED, Starting on Thu11/15/24 at 0930, Until Thu11/15/24 at 2129, Administer for dilation Start: 11-19-2023 End: 11-19-2023 tropicamide 1 % 1 Drop (MYDR IACYL) Start: 11-11-2023 End: 11-12-2023 tropicamide 1 % 1 Drop (MYDR IACYL) Start: 11-05-2023 End: 11-06-2023 tropicamide 1 % 1 Drop (MYDR IACYL) Start: 09-03-2023 End: 09-04-2023 tropicamide 1 % 1 Drop (MYDR IACYL) Start: 08-13-2023 End: 08-14-2023 tropicamide 1 % 1 Drop (MYDR IACYL) Start: 02-07-2022 End: 02-07-2022 tropicamide 1 % 1 Drop (MYDR IACYL) ubidecarenone 100 mg oral capsule (5 sources) take 1 capsule by mouth once coenzyme Q10 (COENZYME Q-10) 100 mg cap capsule as directed Orally Active ubidecarenone/vitamin E mixed (COQ10 SG 100 ORAL) (20 sources) ubidecarenone/vi sunshine n E mixed (COQ10 SG 100 ORAL) Take 100 mg by mouth once daily. Active Umeclidinium (5 sources) Anticholinergic Start: 4 take 62.5 ug by inhalation once daily Umeclidinium (Incruse Ellipta) 62.5 mcg/actuation blister with device Active 1 NMA INHALATION daily April 12, 2024 1:00am Vit B Complex 100 Combo No.2 (B-100 Complex) 100 mg tablet extended release (5 sources) Start: 5 Vit B Complex 100 Combo No.2 (B-100 Complex) 100 mg tablet extended release Active {tbl} PO June 13, 2024 1:00am Vitamin B Complex (20 sources) take 1 tablet by mouth once daily vitamin b complex (B-COMPLEX) tab Take 1 tablet by mouth once daily. Active vitamin k2 0.1 mg oral capsule (5 sources) Start: 5 Vitamin K2 100 mcg capsule Active 100 ug PO daily June 13, 2024 1:00am VITAMIN K2 100 MCG CAPSULE (20 sources) VITAMIN K2 100 M CG CAPSULE Active Zinc (5 sources) Start: 5 take 1 tablet by mouth once daily Zinc 50 mg tablet Active 50 mg PO daily June 13, 2024 1:00am zinc picolinate 50 mg oral tablet (20 sources) take 50 mg by mouth once daily ZINC PICOLINATE ORAL Take 50 mg by mouth once daily. Active Zinc Picolinate, Bulk, powd (5 sources) Zinc Picolinate, Bulk, powd as directed. Active 100 ml zoledronic acid 0.05 mg/ml injection (4 sources) Bisphosphonate Start: Zoledronic Anqj-Xeudbnbg-Aagip 5 mg/100 mL piggyback Active 0 .ROUTE .COMPLEX 100 0 September 26, 2024 12:00am Osteoporosis Age-related osteoporosis without current pathological fracture 5 mg to infuse IVPB over 20 minutes; Completed/Discontinued Medications Medication Drug Class(es) Dates Sig (Normalized) Sig (Original) amiodarone hydrochloride 200 mg oral tablet (5 sources) Antiarrhythmic Start: 04-12-2024 End: 04-12-2024 take 1 tablet by mouth once daily Amiodarone 200 mg tablet Discontinued 200 mg PO daily April 12, 2024 1:00am April 12, 2024 5:32pm amLODIPine 5 mg oral tablet (20 sources) Dihydropyridine Calcium Channel Anmol Start: 01-07-2023 End: 12-13-2024 take 1 tablet by mouth once daily Amlodipine 5 mg tablet Discontinued 5 mg PO DAILY 90 2 January 07, 2023 12:00am April 12, 2024 2:46pm Comment on above: Take 1 tablet by jeannie th every afternoon. amoxicillin 875 mg / clavulanate 125 mg oral tablet (16 sources) Penicillin-class Antibacterial Start: 12-09-2023 End: 08-03-2024 take 1 tablet by mouth every twelve hours amoxicillin-clavu lanate potassium (AUGMENTIN) 875-125 mg per tablet Take 1 tablet by mouth every 12 hours. 12/09/2023 08/03/2024 Discontinued (Other) Start: 12-09-2023 End: 12-31-2023 Amoxicillin-Pot Clavulanate 875-125 mg tablet Discontinued 1 {tbl} PO TWICE A DAY 20 0 December 09, 2023 12:00am December 31, 2023 1:29pm atorvastatin 40 mg oral tablet (4 sources) HMG-CoA Reductase Inhibitor Start: 04-04-2015 End: 01-27-2022 take 1 tablet by mouth once daily at bedtime atorvastatin (LIPITOR) 40 mg tablet TAKE ONE TABLET BY MOUTH EVERY NIGHT AT BEDTIME 30 tablet 11 05/04/2015 01/27/2022 Discontinued Comment on above: TAKE ONE TABLET BY M OUTH EVERY NIGHT AT BEDTIME benoxinate hydrochloride 4 mg/ml / fluorescein sodium 3 mg/ml ophthalmic solution (2 sources) Diagnostic Dye Start: 09-03-2023 End: 09-04-2023 fluorescein-benoxi joi 0.3-0.4 % 1 Drop (FLURESS) Start: 02-07-2022 End: 02-07-2022 fluorescein-benoxinate 0.25- 0.4 % 1 Drop (FLURESS) Blood Sugar Diagnostic (9 sources) Start: 03-14-2022 End: 07-25-2022 Blood Sugar Diagnostic Disco ntinued 0 .Route March 13, 2022 11:00pm July 25, 2022 4:19pm As directed Start: 03-14-2022 End: 07-25-2022 Blood Sugar Diagnostic Disco ntinued 0 .Route March 14, 2022 12:00am July 25, 2022 5:19pm As directed Start: 03-14-2022 Blood Sugar Di agnostic Active 0 .ROUTE March 13, 2022 11:00pm As directed Blood-Glucose Meter monitoring kit (2 sources) Start: 11-27-2022 End: 11-28-2022 Blood-Glucose Meter monitoring kit Indications: 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) Glucose Meter of Choice - Kit - Dx:E10.9 1 Each 0 11/27/2022 11/28/2022 Comment on above: Glucose Meter of [facility] ice - Kit - Dx:E10.9 buPROPion hydrochloride 100 mg oral tablet (20 sources) Aminoketone Start: 04-12-2024 End: 10-19-2024 Bupropion Hcl 100 mg tablet Discontinued 100 mg PO THREE TIMES A DAY April 12, 2024 1:00am October 19, 2024 2:27pm administer 6 hours apart Start: 12-17-2020 End: 08-03-2024 take 1 tablet by mouth every twelve hours Bupropion Hcl (Wellbutrin Sr) 150 mg tablet sustained-release 12 hr Discontinued 150 mg PO Q12H March 14, 2022 12:00am April 12, 2024 2:47pm Start: 09-07-2014 End: 01-27-2022 take 1 tablet by mouth twice daily buPROPion (WELLBUTRIN) 100 mg tablet Indications: Depression Take 1 tablet by mouth twice daily. 180 tablet 3 09/07/2014 01/27/2022 Discontinued (Other) Comment on above: Take 1 tablet by jeannie th twice daily. Take 150 mg by mouth every 12 hours. Take 1 tablet by jeannie th every 12 hours. calcium carbonate 1500 mg / cholecalciferol 0.01 mg oral tablet (20 sources) Vitamin D Start: 06-16-2007 End: 10-21-2023 Calcium Carbonate-Vitamin D3 (Calcium 600 + D(3)) 600 mg-10 mcg (400 unit) tablet Discontinued 1 {tbl} PO DAILY March 14, 2022 12:00am October 21, 2023 2:32pm Start: 06-16-2007 End: 09-19-2022 calcium carbonate/vitamin d3 (CALCIUM 600 + D 600 MG-400 UNIT TAB) Take by mouth. 0 06/16/2007 09/19/2022 Discontinued Comment on above: Take one(1) tablet d aily. Take by mouth. cetirizine hydrochloride 10 mg oral tablet (3 sources) Histamine-1 Receptor Antagonist Start: End: take 1 tablet by mouth once daily cetirizine 10 mg tablet Indications: Allergic rhinitis Take 1 tablet by mouth once daily. 90 tablet 3 08/30/2012 01/27/2022 Discontinued (Other) Comment on above: Take 1 tablet by jeannie once daily. cilostazol 50 mg oral tablet (20 sources) Phosphodiesterase 3 Inhibitor Start: 023 End: take 1 tablet by mouth twice daily Cilostazol 50 mg tablet Discontinued 0 .ROUTE .COMPLEX 60 2 December 24, 2022 12:12pm April 12, 2024 2:49pm TAKE 1 TABLET BY MOUTH TWICE A DAY Comment on above: 1 tablet 30 minutes before or 2 hours after breakfast and dinner Orally Twice a day for 30 day(s) clopidogrel 75 mg oral tablet (20 sources) [id number] Platelet Inhibitor Start: 015 End: take 1 tablet by mouth once daily Clopidogrel 75 mg tablet Discontinued 75 mg PO DAILY March 14, 2022 12:00am April 12, 2024 2:50pm Comment on above: Take 1 tablet by jeannie once daily. COMPOUNDED PRESCRIPTION (3 sources) Start: 011 End: 08-29-2 022 COMPOUNDED PRESCRIPTION stool softener as needed 0 10/23/2010 01/27/2022 Discontinued (Other) Start: 10-23-2010 COMPOUNDED PRE SCRIPTION stool softener as needed 0 10/23/2010 Active Comment on above: stool softener as ne eded diazePAM 5 mg oral tablet (20 sources) Benzodiazepine Start: End: take 1 tablet by mouth twice daily as needed Diazepam 5 mg tablet Discontinued 5 mg PO TWICE A DAY as needed March 14, 2022 12:00am July 25, 2022 5:21pm Start: 07-03-2014 End: 03-07-2022 take 1 tablet by mouth twice daily as needed diazepam (VALIUM) 5 mg tablet Indications: Anxiety state, unspecified Take 1 tablet by mouth twice daily as needed. 60 tablet 0 07/03/2014 03/07/2022 Discontinued Comment on above: Take 1 tablet by jeannie th twice daily as needed. enteric contrast (will be provided with radiology test) (1 source) Start: 2024 End: 2024 take 1 dose by mouth once, then take 1 dose by mouth once enteric contrast (will be provided with radiology test) Take 1 Each by mouth one time only for [address] ABD/PEL WO Routine order Administer, As Directed One Time Only, via Oral, Rectal, both Oral and Rectal, Enteric Tube, Stoma or Indwelling Catheter, Enteric Contrast as designated per enteric contrast guidelines 1 Each 08/17/2024 08/17/2024 hydroCHLOROthiazide 12.5 mg oral tablet (20 sources) Thiazide Diuretic Start: 2022 End: 2023 take 1 tablet by mouth once daily Hydrochlorothiazide 12.5 mg tablet Discontinued 12.5 mg PO DAILY October 07, 2022 12:00am July 13, 2023 3:10pm Comment on above: Take 12.5 mg by mout h every morning. hydroCHLOROthiazide 12.5 mg / lisinopril 20 mg oral tablet (20 sources) Thiazide Diuretic, Angiotensin Converting Enzyme Inhibitor Start: 2022 End: 2022 take 1 tablet by mouth once daily Lisinopril-Hydrochlorothi azide Discontinued 1 TABLET PO DAILY July 25, 2022 12:00am September 15, 2022 12:25pm Start: 03-14-2022 End: 06-26-2022 take 1 tablet by mouth once daily Lisinopril-Hydrochlorothiazide Discontin ued 1 TABLET PO DAILY March 13, 2022 11:00pm June 26, 2022 2:21pm Start: 09-07-2014 End: 12-14-2023 Lisinopril-Hydrochlorothiazi de 20-12.5 mg tablet Discontinued 1 {tbl} PO DAILY July 25, 2022 1:00am September 15, 2022 1:25pm Comment on above: Take 1 tablet by jeannie once daily. hydrOXYzine pamoate 25 mg oral capsule (10 sources) Antihistamine Start: 03-07-20 End: 06-05-19 take 1 capsule by mouth every eight hours as needed for depression and depression hydrOXYzine pamoate (VISTARIL) 25 mg capsule Indications: Depression Take 1 capsule by mouth three times daily as needed. 60 capsule 2 03/07/2022 06/05/2022 Comment on above: Take 1 capsule by mo [facility] three times daily as needed. insulin glargine 100 unt/ml injectable solution (20 sources) Insulin Analog Start: 07-13-19 End: 10-14-19 insulin glargine (LANTUS U-100 INSULIN) 100 unit/mL injection Inject [address] Palumbo 07/13/2023 10/13/2024 Discontinued Start: 09-25-2014 End: 07-13-2023 inject 80 [IU] by subcutaneous injection in the morning, then inject 40 [IU] by subcutaneous injection at bedtime insulin glargine (LANTUS) 100 unit/mL injection Inject 80 units subcutaneously in the MORNING and 40 units subcutaneously at BEDTIME. 120 mL 2 09/25/2014 07/13/2023 Discontinued Comment on above: Inject 80 units subc utaneously in the MORNING and 40 units subcutaneously at BEDTIME. Inject 32 units kole y. Per Dr. Palumbo Insulin Glargine (Lantus U-100 Insulin) 100 unit/mL solution (20 sources) Start: 04-12-2024 End: 10-19-2024 Insulin Glargine (Lantus U-100 Insulin) 100 unit/mL solution Discontinued 30 U SC EVERY MORNING April 12, 2024 2:54pm October 19, 2024 2:28pm Start: 04-12-2024 Insulin Glargi ne (Lantus U-100 Insulin) 100 unit/mL solution Active 30 U SC EVERY MORNING April 12, 2024 2:54pm Start: 07-25-2022 End: 04-12-2024 Insulin Glargine (Lantus U-1 00 Insulin) 100 unit/mL solution Discontinued 35 U SC EVERY MORNING July 25, 2022 5:10pm April 12, 2024 2:57pm Start: 07-25-2022 Insulin Glargi ne (Lantus U-100 Insulin) 100 unit/mL solution Active 35 UNIT SC EVERY MORNING July 25, 2022 4:10pm Start: 07-25-2022 Insulin Glargi ne (Lantus U-100 Insulin) 100 unit/mL solution Active 35 UNIT SC EVERY MORNING July 25, 2022 5:10pm Start: 03-14-2022 End: 07-25-2022 Insulin Glargine (Lantus U-1 00 Insulin) 100 unit/mL solution Discontinued 20 U SC DAILY March 14, 2022 12:00am July 25, 2022 5:21pm Start: 03-14-2022 End: 07-25-2022 Insulin Glargine (Lantus U-1 00 Insulin) 100 unit/mL solution Discontinued 20 UNIT SC DAILY March 13, 2022 11:00pm July 25, 2022 4:21pm Start: 03-14-2022 End: 07-25-2022 Insulin Glargine (Lantus U-1 00 Insulin) 100 unit/mL solution Discontinued 20 UNIT SC DAILY March 14, 2022 12:00am July 25, 2022 5:21pm Start: 03-14-2022 Insulin Glargi ne (Lantus U-100 Insulin) 100 unit/mL solution Active 20 UNIT SC DAILY March 13, 2022 11:00pm insulin lispro-aabc 100 unt/ml injectable solution (20 sources) Insulin Analog Start: 07-25-2022 End: 08-01-2022 inject 12-18 [IU] by subcutaneous injection once daily, then inject 100 [IU] by subcutaneous injection three times daily Insulin Lispro-Aabc (Lyumjev U-100 Insulin) 100 unit/mL solution Discontinued 0 SC THREE TIMES A DAY July 25, 2022 1:00am August 01, 2022 3:14pm per sliding scale subcutaneously three times a day; 12-18units Start: 07-25-2022 End: 08-01-2022 inject 12-18 [IU] by subcutaneous injection once daily, then inject 100 [IU] by subcutaneous injection three times daily Insulin Lispro-Aabc (Lyumjev U-100 Insulin) 100 unit/mL solution Discontinued 0 SC THREE TIMES A DAY July 25, 2022 12:00am August 01, 2022 2:14pm per sliding scale subcutaneously three times a day; 12-18units Start: 03-14-2022 End: 07-14-2022 Insulin Lispro-Aabc (Lyumjev U-100 Insulin) 100 unit/mL solution Discontinued 12 - 15 U SC THREE TIMES A DAY March 14, 2022 12:00am July 14, 2022 9:53am Start: 03-14-2022 End: 07-14-2022 Insulin Lispro-Aabc (Lyumjev U-100 Insulin) 100 unit/mL solution Discontinued 12 - 15 UNIT SC THREE TIMES A DAY March 13, 2022 11:00pm July 14, 2022 8:53am Start: 11-28-2021 End: 09-19-2022 inject 12-15 [IU] by subcutaneous injection at mealtime LYUMJEV U-100 INSULIN 100 unit/mL solution Inject 12-15 Units subcutaneously w MEALS. 11/28/2021 09/19/2022 Discontinued End: 12-14-2023 insulin lispro-aabc (LYUMJEV U-100 INSULIN) 100 unit/mL solution as directed Injection 0 12/14/2023 Discontinued (Other) Comment on above: Inject 12-15 Units s ubcutaneously w MEALS. as directed Injectio n Insulin Syringe-Needle U-100 (ULTRA FINE INSULIN) 1 mL 30 x 1/2" syrg (20 sources) Start: 08-07-2014 End: 10-13-2024 Insulin Syringe-Needle U-100 (ULTRA FINE INSULIN) 1 mL 30 x 1/2" syrg Indications: Diabetes mellitus type 1 with neurological manifestations (HCC) use 5 times a day as directed. 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 200 Syringe 5 08/07/2014 Active Comment on above: use 5 times a day as directed. isosorbide dinitrate 20 mg oral tablet (20 sources) Nitrate Vasodilator Start: 5 End: 5 take 1 tablet by mouth twice daily Isosorbide Dinitrate 20 mg tablet Discontinued 0 .ROUTE .COMPLEX 180 3 May 18, 2023 4:58pm April 12, 2024 2:55pm TAKE 1 TABLET BY MOUTH TWICE A DAY Comment on above: Take 1 tablet by jeannie twice daily. linseed oil 1000 mg oral capsule (3 sources) Start: 2 End: 2 take 1 capsule by mouth once daily Flaxseed Oil 1,000 mg cap Take 1 capsule by mouth once daily. 0 02/11/2012 01/27/2022 Discontinued (Other) Comment on above: Take 1 capsule by mo [facility] once daily. 24 hr metoprolol succinate 100 mg extended release oral tablet (20 sources) beta-Adrenergic Anmol Start: 5 End: 5 take 1 tablet by mouth once daily Metoprolol Succinate 100 mg tablet extended release 24 hr Discontinued 100 mg PO DAILY March 14, 2022 12:00am April 12, 2024 2:56pm Comment on above: Take 1 tablet by jeannie once daily. multivitamins(DAILY VITAMIN TAB) (3 sources) Start: 8 End: 2 multivitamins(DAILY VITAMIN TAB) Take one(1) tablet daily. 0 06/16/2007 01/27/2022 Discontinued (Other) Start: 06-16-2007 multivitamins( DAILY VITAMIN TAB) Take one(1) tablet daily. 0 06/16/2007 Active Comment on above: Take one(1) tablet d aily. [place]-3 Fatty Acids (FISH OIL) 500 mg cap (3 sources) Start: 02-11-2012 End: 01-27-2022 take 1 capsule by mouth once daily [place]-3 Fatty Acids (FISH OIL) 500 mg cap Take 1 capsule by mouth once daily. 0 02/11/2012 01/27/2022 Discontinued (Other) Start: 02-11-[address] [facility] once daily [place]-3 Fatty Acids (FISH OIL) 500 mg cap Take 1 capsule by mouth once daily. 0 02/11/2012 Active Comment on above: Take [address] [facility] once daily. raNITIdine 150 mg oral tablet (3 sources) Histamine-2 Receptor Antagonist Start: 09-08-19 End: 01-28-20 take 1 tablet by mouth twice daily ranitidine (ZANTAC) 150 mg tablet Indications: Reflux Take 1 tablet by mouth twice daily. 180 tablet 3 09/07/2014 01/27/2022 Discontinued Comment on above: Take 1 tablet by [facility] twice daily. spironolactone 25 mg oral tablet (20 sources) Aldosterone Antagonist Start: 07-13-19 End: 04-12-20 take 1 tablet by mouth once daily Spironolactone 25 mg tablet Discontinued 25 mg PO DAILY July 13, 2023 1:00am April 12, 2024 2:56pm Start: 08-06-2022 End: 08-03-2024 take 1 tablet by mouth twice daily Spironolactone 50 mg tablet Discontinued 50 mg PO TWICE A DAY 180 September 15, 2022 1:25pm October 02, 2022 4:26pm Hypertension Type 1 diabetes mellitus with hyperglycemia Essential (primary) hypertension Type 1 diabetes mellitus with hyperglycemia Start: 06-26-2022 End: 07-25-2022 take 1 tablet by mouth twice daily Spironolactone 50 mg tablet Discontinued 50 mg PO TWICE A DAY 180 June 26, 2022 1:00am July 25, 2022 5:18pm Hypertension Type 1 diabetes mellitus with hyperglycemia Essential (primary) hypertension Type 1 diabetes mellitus with hyperglycemia Comment on above: Take 50 mg by mouth twice daily. vits A,C,E/lutein/minerals (HEALTHY EYES ORAL) (13 sources) End: 10-13-2024 vits A,C,E/lutein/minerals (HEALTHY EYES ORAL) Take by mouth. 10/13/2024 Discontinued vits A,C,E/lutei n/minerals (HEALTHY EYES ORAL) Take by mouth. Active zolpidem tartrate 5 mg oral tablet (20 sources) gamma-Aminobutyric Acid-ergic Agonist Start: 07-14-2022 End: 12-14-2023 take 1 tablet by mouth at bedtime as needed for sleep Zolpidem (Ambien) 5 mg tablet Discontinued 5 mg PO AT BEDTIME as needed for Sleep July 25, 2022 1:00am October 21, 2023 2:35pm Start: 03-14-2022 End: 07-25-2022 Zolpidem 10 mg tablet Discon tinued PO March 14, 2022 12:00am July 25, 2022 5:20pm Start: 03-14-2022 End: 07-25-2022 Zolpidem Discontinued PO Mar 11:00pm July 25, 2022 4:20pm Start: 07-03-2014 End: 07-14-2022 take 1 tablet by mouth at bedtime as needed zolpidem (AMBIEN) 10 mg tab Indications: Insomnia Take 1 tablet by mouth at bedtime as needed. for insomnia. 30 tablet 0 07/03/2014 07/14/2022 Discontinued (Adjust Sig - Block E-Cancel) Comment on above: Take 1 tablet by jeannie th at bedtime as needed. for insomnia. Take 1 tablet by jeannie th at bedtime as needed for up to 7 days. for insomnia. Problems Active Problems Problem Classification Problem Date Documented Date Episodic/Chronic Acquired foot deformities (1 source) Bilateral Tailor's bunion of feet; Translations: [Bunionette of right foot] Episodic Acute and unspecified renal failure (2 sources) Acute kidney failure, unspecified; Translations: [Acute kidney failure, unspecified (HCC)] Onset: 01-22-2024 Episodic Anxiety disorders (20 sources) Generalized anxiety disorder; Translations: [Generalized anxiety disorder] Onset: 07-03-2017 01-27-2022 Chronic Aortic; peripheral; and visceral artery aneurysms (2 sources) Aneurysm of other specified arteries; Translations: [Aneurysm of other specified arteries (HCC)] Onset: 01-05-2024 Chronic Cardiac dysrhythmias (10 sources) Atrial fibrillation; Translations: [Unspecified atrial fibrillation] Onset: 04-12-2024 04-12-2024 Chronic Cataract (20 sources) Nuclear senile cataract; Translations: [Age-related nuclear cataract, unspecified eye] Onset: 04-19-2012 04-19-2012 Chronic Chronic kidney disease (20 sources) Chronic kidney disease stage 3; Translations: [Stage 3 chronic kidney disease] Onset: 01-19-2018 01-27-2022 Chronic Chronic kidney disease (2 sources) Chronic kidney disease; Translations: [Stage 3 chronic kidney disease, unspecified whether stage 3a or 3b CKD (HCC)] Onset: 01-27-2022 Chronic obstructive pulmonary disease and bronchiectasis (20 sources) Chronic obstructive lung disease; Translations: [Chronic obstructive pulmonary disease, unspecified] Onset: 07-03-2017 01-27-2022 Chronic Coronary atherosclerosis and other heart disease (20 sources) Coronary arteriosclerosis; Translations: [Atherosclerotic heart disease of [place] coronary artery without angina pectoris] Onset: 07-04-2010 Resolved: 09-19-2022 10-23-2010 Chronic Coronary atherosclerosis and other heart disease (20 sources) Stented coronary artery; Translations: [Presence of coronary angioplasty implant and graft] Onset: 07-03-2017 Resolved: 09-19-2022 01-27-2022 Episodic Comment on above: LAD: mid stent x2; 2 005,1996 Deficiency and other anemia (2 sources) Anemia, unspecified; Translations: [Anemia, unspecified] Onset: 02-29-2024 Episodic Deficiency and other anemia (10 sources) Anemia; Translations: [Anemia, unspecified] Onset: 10-14-2024 10-14-2024 Episodic Diabetes mellitus with complications (20 sources) Type 1 diabetes mellitus; Translations: [Type 1 diabetes mellitus with other diabetic neurological complication] Onset: 07-04-2010 Resolved: 09-19-2022 10-23-2010 Chronic Diabetes mellitus without complication (16 sources) Diabetes mellitus; Translations: [Type 2 diabetes mellitus without complications] Onset: 09-13-2024 07-28-2022 Chronic Disorders of lipid metabolism (20 sources) Hyperlipidemia; Translations: [Hyperlipidemia, unspecified] Onset: 07-04-2010 10-23-2010 Chronic Esophageal disorders (20 sources) Gastroesophageal reflux disease without esophagitis; Translations: [Gastro-esophageal reflux disease without esophagitis] Onset: 07-03-2017 01-27-2022 Chronic Essential hypertension (20 sources) Hypertensive disorder; Translations: [Essential (primary) hypertension] Onset: 07-04-2010 10-23-2010 Chronic Fluid and electrolyte disorders (10 sources) Hyperkalemia; Translations: [Hyperkalemia] Onset: 10-14-2024 10-14-2024 Episodic Heart valve disorders (2 sources) Nonrheumatic aortic (valve) stenosis; Translations: [Nonrheumatic aortic (valve) stenosis] Onset: 01-12-2024 Chronic Immunizations and screening for infectious disease (1 source) Viral screening status; Translations: [Encounter for screening for other viral diseases] Episodic Inflammation; infection of eye (except that caused by tuberculosis or sexually transmitteddisease) (6 sources) Bilateral punctate keratitis of eyes; Translations: [Punctate keratitis, bilateral] Onset: 11-15-2024 Chronic Mood disorders (20 sources) Depressive disorder; Translations: [Major depressive disorder, single episode, unspecified] Onset: 07-04-2010 10-23-2010 Chronic Mood disorders (1 source) Mood disorders; Translations: [Depression, unspecified depression type] Onset: 10-23-2010 Mycoses (1 source) Onychomycosis; Translations: [Tinea unguium] Episodic Nonspecific chest pain (5 sources) Chest pain; Translations: [Chest pain, unspecified] 12-08-2023 Episodic Nutritional deficiencies (19 sources) Vitamin D deficiency; Translations: [Vitamin D deficiency, unspecified] Onset: 09-13-2024 06-16-2022 Chronic Occlusion or stenosis of precerebral arteries (13 sources) Bilateral stenosis of carotid arteries; Translations: [Occlusion and stenosis of bilateral carotid arteries] Onset: 10-13-2024 10-13-2024 Chronic Osteoarthritis (20 sources) Osteoarthritis of joint of right shoulder region; Translations: [Primary osteoarthritis, right shoulder] Onset: 07-04-2010 Resolved: 09-19-2022 07-04-2010 Chronic Osteoporosis (20 sources) Osteoporosis; Translations: [Age-related osteoporosis without current pathological fracture] Onset: 02-16-2018 01-27-2022 Chronic Other aftercare (10 sources) Surgical follow-up; Translations: [Encounter for surgical aftercare following surgery on the circulatory system] 12-24-2022 Episodic Other aftercare (2 sources) long-term (current) use of insulin; Translations: [Type 2 diabetes mellitus with hyperglycemia, with long-term current use of insulin ([facility])] Onset: 09-28-2024 Episodic Other bone disease and musculoskeletal deformities (1 source) Other specified disorders of bone, other site; Translations: [Other specified disorders of bone, other site] Onset: 12-21-2024 Episodic Other circulatory disease (2 sources) Other disorders of arteries, arterioles and capillaries in diseases classified elsewhere; Translations: [Other disorders of arteries, arterioles and capillaries in diseases classified elsewhere (HCC)] Onset: 01-05-2024 Chronic Other circulatory disease (1 source) Abnormal peripheral pulse; Translations: [Other specified symptoms and signs involving the circulatory and respiratory systems] Episodic Other connective tissue disease (1 source) Pain of toe of left foot; Translations: [Pain in left toe(s)] Episodic Other connective tissue disease (1 source) Pain of toe of right foot; Translations: [Pain in right toe(s)] Episodic Other connective tissue disease (2 sources) Bursitis of shoulder; Translations: [Bursitis of right shoulder] Episodic Other connective tissue disease (5 sources) Bursitis of left knee; Translations: [Other bursitis of knee, left knee] 12-09-2023 Episodic Other diseases of kidney and ureters (2 sources) Cyst of kidney; Translations: [Cyst of kidney, acquired] Episodic Other lower respiratory disease (13 sources) Dyspnea on exertion; Translations: [Other forms of dyspnea] 07-25-2022 Episodic Other non-traumatic joint disorders (2 sources) Chronic pain of right upper limb; Translations: [Pain in right shoulder] Episodic Other non-traumatic joint disorders (2 sources) Mass of joint of right shoulder; Translations: [Other specified joint disorders, right shoulder] Episodic Other nutritional; endocrine; and metabolic disorders (13 sources) Overweight; Translations: [Overweight] 02-12-2023 Episodic Other nutritional; endocrine; and metabolic disorders (4 sources) Overweight; Translations: [Overweight] Onset: 12-12-2024 02-12-2023 Episodic Other screening for suspected conditions (not mental disorders or infectious disease) (3 sources) Encounter for screening for malignant neoplasm of respiratory organs; Translations: [Special screening for malignant neoplasms of respiratory organs] Onset: 10-10-2024 01-06-2023 Episodic Other skin disorders (3 sources) Mass of skin; Translations: [Localized swelling, mass and lump, unspecified] Episodic Peggy-; endo-; and myocarditis; cardiomyopathy (except that caused by tuberculosis or sexually transmitted disease) (13 sources) Heart valve disorder; Translations: [Endocarditis, valve unspecified] Onset: 10-13-2024 10-13-2024 Chronic Peripheral and visceral atherosclerosis (20 sources) Peripheral vascular disease, unspecified; Translations: [Peripheral vascular disease, unspecified] Onset: 04-12-2024 Chronic Comment on above: PVR- reports from [facility] reviewed; right MARY 0.72, left 0.6CTA- bilateral common iliac severe stenosis, scattered bilateral SFA/popliteal moderate disease CTA- bilateral commo n iliac severe stenosis, scattered bilateral SFA/popliteal moderate diseases/p bilateral iliac artery stents 2022 Residual codes; unclassified (20 sources) Obstructive sleep apnea syndrome; Translations: [Obstructive sleep apnea (adult) (pediatric)] Onset: 08-30-2011 08-30-2011 Chronic Residual codes; unclassified (1 source) Obstructive sleep apnea (adult) (pediatric); Translations: [Obstructive sleep apnea] Onset: 01-27-2022 Chronic Residual codes; unclassified (9 sources) Tobacco use and exposure - finding; Translations: [Tobacco use] Episodic Residual codes; unclassified (1 source) History of ldyhwey-jxitjwwk-tetyh t (YAG) laser capsulotomy of lens; Translations: [Other specified postprocedural states] 11-19-2023 Episodic Residual codes; unclassified (2 sources) Localized edema; Translations: [Localized edema] Onset: 01-22-2024 Episodic Residual codes; unclassified (2 sources) Postmenopausal state; Translations: [Asymptomatic menopausal state] 08-03-2024 Episodic Screening and history of mental health and substance abuse codes (14 sources) Ex-smoker; Translations: [Personal history of nicotine dependence] Onset: 10-10-2024 10-13-2024 Episodic Spondylosis; intervertebral disc disorders; other back problems (20 sources) Degeneration of intervertebral disc; Translations: [Degenerative disc disease] Onset: 07-04-2010 10-23-2010 Chronic Substance-related disorders (20 sources) Nicotine dependence; Translations: [Nicotine dependence, unspecified, uncomplicated] Onset: 07-03-2017 Resolved: 10-13-2024 01-27-2022 Chronic Thyroid disorders (20 sources) Hypothyroidism; Translations: [Hypothyroidism, unspecified] Onset: 07-04-2010 10-23-2010 Chronic Unclassified (2 sources) New Patient; Translations: [New Patient] Onset: 01-01-2024 Unclassified (2 sources) Patient encounter status 08-03-2024 Past or Other Problems Problem Classification Problem Date Documented Da te Episodic/Chronic Abdominal hernia (20 sources) Ventral incisional hernia; Translations: [Incisional hernia without obstruction or gangrene] Onset: 01-15-2021 01-27-2022 Episodic Biliary tract disease (20 sources) Gallbladder mass; Translations: [Other specified diseases of gallbladder] Onset: 04-21-2022 Episodic Diabetes mellitus without complication (10 sources) Insulin pump present; Translations: [Presence of insulin pump (external) (internal)] Onset: 09-13-2024 09-12-2024 Episodic Gastritis and duodenitis (20 sources) Gastritis; Translations: [Gastritis, unspecified, without bleeding] Onset: 09-23-2007 09-23-2007 Episodic Gastrointestinal hemorrhage (20 sources) Hematochezia; Translations: [Melena] Onset: 09-23-2007 Resolved: 09-19-2022 09-23-2007 Episodic Genitourinary symptoms and ill-defined conditions (16 sources) Albuminuria ; Translations: [Proteinuria, unspecified] Onset: 06-15-2024 Episodic Other aftercare (20 sources) Patient encounter status; Translations: [Encounter for therapeutic drug level monitoring] Onset: 06-16-2007 Resolved: 05-31-2012 Episodic Other aftercare (1 source) Encounter for surgical aftercare following surgery on the circulatory system; Translations: [Encounter for surgical aftercare following surgery on the circulatory system] Onset: 04-12-2024 Episodic Other and unspecified benign neoplasm (20 sources) Benign neoplasm of soft tissue; Translations: [Benign neoplasm of connective and other soft tissue, unspecified] Onset: 01-16-2011 Resolved: 09-19-2022 01-16-2011 Episodic Other and unspecified benign neoplasm (20 sources) History of adenomatous polyp of colon; Translations: [Personal history of colonic polyps] Onset: 07-23-2017 01-27-2022 Episodic Other and unspecified benign neoplasm (20 sources) Benign connective tissue neoplasm; Translations: [Benign neoplasm of connective and other soft tissue, unspecified] Onset: 01-16-2011 Resolved: 09-19-2022 09-19-2022 Episodic Other connective tissue disease (20 sources) Infection of prepatellar bursa; Translations: [Other infective bursitis, unspecified knee] Onset: 01-05-2019 Resolved: 09-19-2022 01-27-2022 Episodic Other connective tissue disease (1 source) Other bursitis of knee, left knee; Translations: [Other bursitis of knee, left knee] Onset: 12-31-2023 Episodic Other nervous system disorders (20 sources) Skin sensation disturbance; Translations: [Unspecified disturbances of skin sensation] Onset: 06-29-2003 Resolved: 09-19-2022 09-25-2003 Episodic Other non-traumatic joint disorders (20 sources) Pain in lower limb; Translations: [Pain in unspecified knee] Onset: 07-01-2013 Resolved: 09-19-2022 07-01-2013 Episodic Other non-traumatic joint disorders (20 sources) Arthralgia of the pelvic region and thigh; Translations: [Pain in unspecified hip] Onset: 10-19-2013 Resolved: 09-19-2022 10-19-2013 Episodic Residual codes; unclassified (20 sources) Insomnia; Translations: [Insomnia, unspecified] Onset: 03-30-2013 03-30-2013 Episodic Residual codes; unclassified (14 sources) History of cardiac catheterization; Translations: [Other specified postprocedural states] Onset: 04-01-2015 06-27-2022 Episodic Comment on above: LAD: mid 30-40% sten osis with a widely patent mid stent with small aneurysm just distal to the previous stent. There are a total of 3diagonal branches, al of which were small caliber vessels. LCX: proximal 40% stenosis. First OM had 10-20% stenosis. RCA: totally occluded in the proximal portion of the vessel with the distal posterior descending artery and posterolateral branch fill by contralateral collateral vessels per cardiac cath 04/11/15 Residual codes; unclassified (20 sources) Family history of cancer of colon; Translations: [Family history of malignant neoplasm of digestive organs] Onset: 09-19-2022 Episodic Residual codes; unclassified (1 source) Insomnia, unspecified; Translations: [Insomnia, unspecified type] Onset: 03-30-2013 Episodic Residual codes; unclassified (1 source) Family history of malignant neoplasm of digestive organs; Translations: [Family history of colon cancer] Onset: 09-19-2022 Episodic Residual codes; unclassified (1 source) Asymptomatic menopausal state; Translations: [Asymptomatic menopausal state] Onset: 09-01-2024 Episodic Retinal detachments; defects; vascular occlusion; and retinopathy (20 sources) Traction detachment of retina; Translations: [Traction detachment of retina, unspecified eye] Onset: 02-04-2011 02-04-2011 Episodic Skin and subcutaneous tissue infections (2 sources) Cellulitis of knee; Translations: [Cellulitis of unspecified part of limb] Onset: 12-14-2023 12-14-2023 Episodic Spondylosis; intervertebral disc disorders; other back problems (20 sources) Low back pain; Translations: [Low back pain] Onset: 10-23-2010 Resolved: 09-19-2022 10-23-2010 Episodic Unclassified (20 sources) Reflux; Translations: [Reflux] Onset: 07-04-2010 Resolved: 09-19-2022 07-04-2010 Unclassified (1 source) Preprocedural examination done 10-13-2024 Results Test Name Value Interpretation Reference Range Facility Endocrinology Visit Reporton 12-12-2024 Endocrinology Visit Report [facility] [address] [place] [address] OFFICE VISIT Date of Service: 12/12/24 MR#: [id number] Acct: [id number] Name: ZORAIDA PIRES Rep #: [id number] : 1950 Provider: LAURA pike Age/Sex: 74/F Location: [facility] Status: Signed Intake Vital Signs 09/12/24 10:37 10/25/24 14:02 12/12/24 10:33 Height 4 ft 10 in 5 ft 5 ft Weight: 129 lb 6 oz BMI 25.2 BP 101/59 L Pulse 56 L Pulse Source Monitor Pulse Oximetry (%) 97 Oxygen Delivery Method room air Intake Visit Reasons: 3 M FU Chief Complaint: f/u diabetes Is patient in pain?: No Allergies No Known Allergies Allergy (Verified 12/12/24 10:37) Medications ???Medication ???Instructions ???Recorded ???Confirmed ???Type albuterol 90 mcg/actuation aerosol 90 mcg inhalation DAILY 03/14/22 12/12/24 History inhaler blood sugar diagnostic (Truetest 03/14/22 12/12/24 History Test Strips) hydrocodone 7.5 mg-acetaminophen 1 tab PO Q6H PRN Pain 03/14/22 History 325 mg tablet pantoprazole 40 mg tablet,delayed 40 mg PO DAILY 03/14/22 12/12/24 History release polyvinyl alcohol 1.4 % eye drops 1 drp ophthalmic (eye) BID-QID 12/12/24 History rosuvastatin 40 mg tablet 40 mg PO DAILY 03/14/22 12/12/24 H istory citalopram 40 mg tablet 40 mg PO DAILY 07/25/22 12/12/24 H istory nitroglycerin 0.4 mg sublingual 0.4 mg sublingual ONCE #25 tabs 12/12/24 Rx tablet trazodone 50 mg tablet 50 mg PO DAILY 07/13/23 12/12/24 H istory aspirin 81 mg tablet,delayed 81 mg PO QDAY #90 tabs 04/12/24 Rx release (Adult Aspirin Regimen) gabapentin 100 mg capsule 100 mg PO TID 04/12/24 12/12/24 Hi story umeclidinium 62.5 mcg/actuation 1 inh inhalation QDAY 04/12/24 History blister powder for inhalation (Incruse Ellipta) carvedilol 3.125 mg tablet 3.125 mg PO BID #180 tabs 05/26/24 12/12/24 Rx ascorbic acid (vitamin C) 1,000 mg 1 g PO Q6H 06/13/24 12/12/24 His tory capsule cholecalciferol (vitamin D3) 250 250 mcg PO QDAY 06/13/24 12/12/24 History mcg (10,000 unit) capsule coenzyme [id number] E 100 mg-100 cap PO 06/13/24 12/12/24 History unit capsule ferrous gluconate 325 mg (37 mg 18 mg PO QDAY 06/13/24 12/12/24 Hi story iron) tablet magnesium glycinate 100 mg (as 500 mg PO QDAY 06/13/24 12/12/24 H istory glycinate) tablet selenium 200 mcg capsule 200 mcg PO QDAY 06/13/24 12/12/24 History vit B complex 100 combo no.2 100 tab PO 06/13/24 12/12/24 History mg tablet,extended release (B-100 Complex ER) vitamin K2 100 mcg capsule 100 mcg PO QDAY 06/13/24 12/12/24 History zinc 50 mg tablet 50 mg PO QDAY 06/13/24 12/12/24 Hi story insulin aspart 14 unit subcut TID #12.6 mL 12/12/24 Rx (niacinamide)(U-100) 100 unit/mL(3 mL) subcutaneous pen (Fiasp FlexTouch U-100 Insulin) blood sugar diagnostic (Accu-Chek #100 ea 08/15/24 12/12/24 Rx Guide test strips) lancets (Accu-Chek Softclix #100 ea 08/15/24 12/12/24 Rx Lancets) lisinopril 20 mg tablet 20 mg PO QDAY 09/12/24 12/12/24 Hi story zoledronic acid 5 mg/100 mL in See Rx Instructions .Route 5 12/12/24 Rx mannitol 5 %-water intravenous .COMPLEX #100 mL piggybck levothyroxine 75 mcg tablet 75 mcg PO QDAY #90 tabs 12/05/24 0 12/12/24 Rx insulin aspart (niacinamide) 75 unit subcut .continuous #70 mL 12/12/24 Rx (U-100) 100 unit/mL subcutaneous solution (Fiasp U-100 Insulin) Have you fallen in the past year?: No PFSH Medical History History of tobacco use Other bursitis of knee, left knee Tobacco use disorder, continuous Encounter for screening for malignant neoplasm of lung Chronic insomnia Abdominal wall lump DDD (degenerative disc disease) PVD (peripheral vascular disease) Sleep apnea Dyspnea on exertion Mixed hyperlipidemia PAD (peripheral artery disease) History of left heart catheterization (LHC) ( 04/11/15) GERD (gastroesophageal reflux disease) CKD (chronic kidney disease) stage 3, GFR 30-59 ml/min Essential hypertension Presence of stent in coronary artery ( 2004) Atherosclerotic heart disease of [place] coronary artery without angina pectoris Encounter for vitamin deficiency screening Diabetic retinopathy associated with type 1 diabetes mellitus Polyneuropathy due to type 1 diabetes mellitus Appendicitis Proteinuria Lower back pain Heart attack Surgical History History of laparoscopic appendectomy Presence of coronary angioplasty implant and graft H/O angioplasty Hx of tubal ligation Hx of section Family Histor (more content not included)... Normal [facility] HBA1C (OUTSIDE)on 12-12-2024 HbA1c (Bld) [Mass fraction] 7 % [facility] Comment on above: per endo Dr Palumbo [facility] OCT MACULA CIRRUS OU (BOTH E YES)on 11-15-2024 [facility] Radiology Study observation (narrative) [facility] CNOVon 11-08-2024 CNOV Office Visit (GENSWS ) -------- PRANAYZORAIDA Flores ([id number]) 1950 F Date Time Provider Department 11/08/24 11:30 AM RACHEL JEAN During your visit today, we recorded the following information about you: Temperature Pulse Blood pressure 97.3 degrees 64/minute 124/72 Rachel Jean APRN.CNP 11/08/2024 12:29 PM Signed SUBJECTIVE: Zoraida Pires presents for follow up of her upper abdominal incisional hernia repair WITH mesh. On 11/01/24 she underwent a hernia repair, tolerated the procedure well and was discharged home. Patient complaints: pain -requesting more pain meds -only taking as needed -using laxative to keep bowels moving She denies drainage, redness around wound, difficulty voiding, and constipation. OBJECTIVE: BP 124/72 Pulse 64 Temp 36.3 ?C (97.3 ?F) SpO2 98% General Appearance: Well developed, No acute distress Abdomen: Abdomen soft, non-distended. Incision: no drainage, no erythema, no swelling, moderate ecchymosis, and mild tenderness, steri strips still intact Participation of a fellow, resident, medical student, or advanced practice provider student in performing the sensitive examination was discussed with the patient or authorized underwriting sales representative. The patient or authorized underwriting sales representative has agreed to proceed with the sensitive examination. Transition Nurse present: Charisma Hargrove RN IMPRESSION: Post op course: Normal PLAN: Post-op patient instructions were reviewed with the patient. I have explained to Ms. Pires that she may return to normal activity with the following restrictions: No heavy lifting, pushing, or pulling greater than 20 lbs for 8 weeks post-operatively. I have encouraged her to contact me at any time with any questions or concerns that may arise. Follow up: LUANNE Jean APRN.ADVANCED CLINICAL SPECIALIST Allergies As of Date: 11/08/2024 (No Known Allergies) Date Reviewed: 11/08/2024 Reviewed by: Connie Hargrove RN - Fully Assessed Reason for Visit: Post Op [174] Cmt: hernia Primary Visit Diagnosis:Incisional hernia, without obstruction or gangrene [K43.2] Order(s):oxyCODONE-aceta minophen (PERCOCET) 5-325 mg tabletTake 1 tablet by mouth four times a day as needed for pain for up to 5 days. FOR PAIN.Disp: 20 tabletRfl: 0 Prescriptions as of 11/08/2024 - oxyCODONE-acetaminophen (PERCOCET) 5-325 mg tablet Take 1 tablet by mouth four times a day as needed for pain for up to 5 days. FOR PAIN. - traZODone (DESYREL) 50 mg tablet Take 1 tablet by mouth at bedtime as needed. - gabapentin (NEURONTIN) 100 mg capsule Take 1 capsule by mouth three times a day for 30 days. - lisinopril (ZESTRIL) 20 mg tablet Take 20 mg by mouth once daily. - aspirin, enteric coated (ASPIRIN, ENTERIC COATED) 81 mg EC tablet Take 1 tablet by mouth once daily. - carvedilol (COREG) 3.125 mg tablet Take 3.125 mg by mouth two times a day with meals. - levothyroxine (SYNTHROID) 75 mcg tablet Take 1 tablet by mouth every afternoon. - ZINC PICOLINATE ORAL Take 50 mg by mouth once daily. - ferrous bis-glycinate chelate (IRON BISGLYCINATE CHELATE ORAL) Take 18 mg by mouth once daily. - MAGNESIUM GLYCINATE ORAL Take 500 mg by mouth once daily. - Ascorbic Acid (VITAMIN C) 1,000 mg tablet Take 1,000 mg by mouth once daily. - Selenium 100 mcg tab Take 100 mcg by mouth once daily. - cholecalciferol, vitamin D3, (VITAMIN D3 ORAL) Take 250 mcg by mouth once daily. - Biotin 10,000 mcg cap Take 10,000 mcg by mouth once daily. - melatonin 12 mg tab Take 12 mg by mouth daily at bedtime. - vitamin b complex (B-COMPLEX) tab Take 1 tablet by mouth once daily. - VITAMIN K2 100 MCG CAPSULE - ubidecarenone/vitamin E mixed (COQ10 SG 100 ORAL) Take 100 mg by mouth once daily. - rosuvastatin (CRESTOR) 40 mg tablet Take 1 tablet by mouth once daily. - nitroglycerin sublingual (NITROQUICK) 0.4 mg SL tablet Dissolve 1 tablet under the tongue as needed. DISSOLVE ON TONGUE FOR CHEST PAIN. IF NO PAIN RELIEF, CALL 911 - citalopram (CELEXA) 40 mg tablet Take 1 tablet by mouth once daily. - pantoprazole DR (PROTONIX) 40 mg tablet Take 1 tablet by mouth once daily. - albuterol HFA (VENTOLIN HFA) 90 mcg/actuation inhaler Inhale 2 Puffs as instructed every 4 hours as needed for wheezing/shortness of breath. - PEG 400-propylene glycol (SYSTANE ULTRA) 0.4-0.3 % ophthalmic solution Use 1 Drop in both eyes every 2 hours while awake. - POLYVINYL ALCOHOL (20/20 ARTIFICIAL TEARS OPHTHALMIC) Use in eyes as needed. 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 os bid and pink cap is qid, not sure of med names, pt didn't bring bottles Problem List As Of Date 11/08/2024 Noted Resolved Disturbance of skin sensation [R20.9] 06/29/2003 09/19/2022 Special screening for malignant neoplasms, colo* (more content not included)... [facility] ZORAIDA PIRES ([id number]) 1950 F Date Time Provider Department 11/04/24 ADRIEL SOLIS During your visit today, we recorded the following information about you: Ella Arango 11/04/2024 1:22 PM Signed Patient called to schedule 1 week post op appointment with Dr. Solis per his instructions. The provider has no availability in [facility] for the week of 11/07/24. Patient unwilling to travel to other facilities with availability. Please contact patient to advise on plan of care. Claudine Thao LPN 11/04/2024 1:28 PM Signed Patient called. Verified name and date of . Patient would like to know how long to wear binder for? States it does help her and advised her to wear it for a minimum of a week, longer if it helps. She is concerned about follow up appointment and aware that once we hear from provider we will let her know but she does not want to leave [place] for appointment. JULIANA Pimentel Kimberly, LPN 11/07/2024 8:37 AM Signed Adriel Solis MD You; [facility] General Surgery Pool2 days ago She can see Rachel or follow-up with me a week later. If the abdominal binder helps her feel more support she can wear it if it does not seem to matter she does not need to wear it. Called patient. Verified name and date of . Patient informed and verbalizes understanding. Transferred to scheduling. Claudine Thao LPN Allergies As of Date: 11/04/2024 (No Known Allergies) Date Reviewed: 11/01/2024 Reviewed by: Lizzy Macdonald, RN - Fully Assessed Reason for Visit: Appointment [186] Cmt: Post Op Post Op [174] Prescriptions as of 11/07/2024 - traZODone (DESYREL) 50 mg tablet Take 1 tablet by mouth at bedtime as needed. - gabapentin (NEURONTIN) 100 mg capsule Take 1 capsule by mouth three times a day for 30 days. - lisinopril (ZESTRIL) 20 mg tablet Take 20 mg by mouth once daily. - aspirin, enteric coated (ASPIRIN, ENTERIC COATED) 81 mg EC tablet Take 1 tablet by mouth once daily. - carvedilol (COREG) 3.125 mg tablet Take 3.125 mg by mouth two times a day with meals. - levothyroxine (SYNTHROID) 75 mcg tablet Take 1 tablet by mouth every afternoon. - HYDROcodone-Acetaminophe n (NORCO) 10-325 mg per tablet Take 1 tablet by mouth every 12 hours. - ZINC PICOLINATE ORAL Take 50 mg by mouth once daily. - ferrous bis-glycinate chelate (IRON BISGLYCINATE CHELATE ORAL) Take 18 mg by mouth once daily. - MAGNESIUM GLYCINATE ORAL Take 500 mg by mouth once daily. - Ascorbic Acid (VITAMIN C) 1,000 mg tablet Take 1,000 mg by mouth once daily. - Selenium 100 mcg tab Take 100 mcg by mouth once daily. - cholecalciferol, vitamin D3, (VITAMIN D3 ORAL) Take 250 mcg by mouth once daily. - Biotin 10,000 mcg cap Take 10,000 mcg by mouth once daily. - melatonin 12 mg tab Take 12 mg by mouth daily at bedtime. - vitamin b complex (B-COMPLEX) tab Take 1 tablet by mouth once daily. - VITAMIN K2 100 MCG CAPSULE - ubidecarenone/vitamin E mixed (COQ10 SG 100 ORAL) Take 100 mg by mouth once daily. - rosuvastatin (CRESTOR) 40 mg tablet Take 1 tablet by mouth once daily. - nitroglycerin sublingual (NITROQUICK) 0.4 mg SL tablet Dissolve 1 tablet under the tongue as needed. DISSOLVE ON TONGUE FOR CHEST PAIN. IF NO PAIN RELIEF, CALL 911 - citalopram (CELEXA) 40 mg tablet Take 1 tablet by mouth once daily. - pantoprazole DR (PROTONIX) 40 mg tablet Take 1 tablet by mouth once daily. - albuterol HFA (VENTOLIN HFA) 90 mcg/actuation inhaler Inhale 2 Puffs as instructed every 4 hours as needed for wheezing/shortness of breath. - PEG 400-propylene glycol (SYSTANE ULTRA) 0.4-0.3 % ophthalmic solution Use 1 Drop in both eyes every 2 hours while awake. - POLYVINYL ALCOHOL (20/20 ARTIFICIAL TEARS OPHTHALMIC) Use in eyes as needed. 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 os bid and pink cap is qid, not sure of med names, pt didn't bring bottles Problem List As Of Date 11/04/2024 Noted Resolved Disturbance of skin sensation [R20.9] 06/29/2003 09/19/2022 Special screening for malignant neoplasms, colo*06/16/2007 05/31/2012 GASTRITIS/DUODEN NOS W/O HEMORRH [K29.70, K29.9*09/23/2007 Blood in stool [K92.1] 09/23/2007 09/19/2022 Hyperlipidemia [E78.5] 07/04/2010 Hypothyroid [E03.9] 07/04/2010 HTN (hypertension) [I10] 07/04/2010 Reflux [RHR6996] 07/04/2010 09/19/2022 Depression [F32.A] 07/04/2010 Status post coronary artery stent placement [Z9*07/04/2010 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*07/04/2010 CAD (coronary artery disease) [I25.10] 07/04/2010 Degenerative disc disease [UIF5450] 07/04/2010 Osteoarthritis of right shoulder region [M19.01*07/04/2010 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 Normal [facility] ANES POSTPROC EVALon 025 ANES POSTPROC EVAL HNO ID: [id number] Author: VITALY HERNANDEZ MD Service: Anesthesiology Author Type: Anesthesiologist Type: Anesthesia Postprocedure Evaluation Filed: 11/01/2024 10:18 Note Text: POST ANESTHESIA EVALUATION NOTE : 1950 Procedure Summary Date: 11/01/24 [facility] An[facility]hesia Start: 740 Anesthesia Stop: 100 Procedures: LAPAROSCOPIC HERNIA REPAIR INCISIONAL INITIAL REDUCIBLE W/MESH 3cm-10cm (Abdomen) LAPAROSCOPY DIAGNOSTIC WITH LYSIS ADHESIONS INTESTINAL Diagnosis: Incisional hernia, without obstruction or gangrene Type 2 diabetes mellitus with hyperglycemia, with long-term current use of insulin (HCC) Peripheral vascular disease Presence of coronary angioplasty implant and graft Chronic kidney disease, stage 1 (Incisional hernia, without obstruction or gangrene [K43.2]) (Type 2 diabetes mellitus with hyperglycemia, with long-term current use of insulin (HCC) [E11.65, Z79.4]) (Peripheral vascular disease [I73.9]) (Presence of coronary angioplasty implant and graft [Z95.5]) (Chronic kidney disease, stage 1 [N18.1]) Surgeons: Adriel Solis MD Responsible Provider: Vitaly Hernandez MD Anesthesia Type: general ASA Status: 3 Anesthesia Type: general Airway Type: ETT Last Vitals Vitals Value Taken Time BP 141/63 11/01/24 1016 Temp 36.5 11/01/24 1018 Pulse 74 11/01/24 1016 Resp 15 11/01/24 1016 SpO2 98 % 11/01/24 1016 Vitals shown include unfiled device data. Post Anesthesia Patient Status Patient Evaluation: bedside. Anticipated Disposition: phase 2 then home. Neurological Status: aware and responsive. Pulmonary Status: breathing comfortably on room air Airway Control: returned to baseline unsupported. Cardiovascular Status: stable. Pain Management: clinically adequate Postoperative Hydration: acceptable. Intraoperative Events: no significant anesthesia events Post Operative Nausea/Vomiting Status: no significant post operative nausea or vomiting Recommendation: continue current plan of care. Anesthesia Observations No Documentation SIGNATURE: Vitaly Hernandez MD PATIENT NAME: Zoraida Pires DATE: November 01, 2024 TIME: 10:18 AM CSN: [id number] [facility] ANES PRE-OPon 11-01-2024 ANES PRE-OP HNO ID: [id number] Author: VITALY HERNANDEZ MD Service: Anesthesiology Author Type: Anesthesiologist Type: Anesthesia Preprocedure Evaluation Filed: 11/01/2024 06:49 Note Text: ANESTHESIOLOGY DAY OF SURGERY NOTE : 1950 Procedure Information Date/Time: 11/01/24 0730 Procedure: LAPAROSCOPIC HERNIA REPAIR INCISIONAL INITIAL REDUCIBLE W/MESH 3cm-10cm (Abdomen) [facility] Surgeons: Adriel Solis MD Estimated body mass index is 25.35 kg/m? as calculated from the following: Height as of 10/13/24: 152.4 cm (5'). Weight as of 10/13/24: 58.9 kg (129 lb 12.8 oz). 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 Tracheostomy tube not present Mallampati: II. TM distance: >3 FB. Neck ROM: full ROM without neurological symptoms. Mouth opening: adequate. Short neck: no. Thick neck: no DENTAL Normal dental observations. Dental findings: missing tooth/teeth and poor dentition. II - ANESTHESIA PLAN ASA Score: 3 Anesthetic Plan: general Airway type: ETT The patient is not a current smoker. NPO Status: adequate Beta Anmol Monitoring Plan Monitoring plan: standard ASA. Post Procedure Analgesic Plan Postoperative analgesic plan: parenteral or oral opioids and multimodal analgesia. Informed Consent Anesthetic risks, benefits, alternatives, personnel and consent discussed: yes. Patient / Responsible Democrat agrees to proceed: yes Patient / Surrogate agrees to blood products: blood products not planned DNR status not reviewed with patient and/or family prior to surgery. Significant changes in the patient condition since the History and Physical, not otherwise documented in primary service progress note: no. Potential Anesthesia issues that may suggest increased risk of complications or contraindication to planned procedure: none. Discussed the possibility of lip / dental damage: yes No vitals data found for the desired time range. No current facility-administered medications on file as of 11/01/2024. Outpatient Medications as of 11/01/2024 Medication Sig traZODone (DESYREL) 50 mg tablet Take 1 tablet by mouth at bedtime as needed. lisinopril (ZESTRIL) 20 mg tablet Take 20 mg by mouth once daily. aspirin, enteric coated (ASPIRIN, ENTERIC COATED) 81 mg EC tablet Take 1 tablet by mouth once daily. carvedilol (COREG) 3.125 mg tablet Take 3.125 mg by mouth two times a day with meals. levothyroxine (SYNTHROID) 75 mcg tablet Take 1 tablet by mouth every afternoon. ferrous bis-glycinate chelate (IRON BISGLYCINATE CHELATE ORAL) Take 18 mg by mouth once daily. Selenium 100 mcg tab Take 100 mcg by mouth once daily. cholecalciferol, vitamin D3, (VITAMIN D3 ORAL) Take 250 mcg by mouth once daily. rosuvastatin (CRESTOR) 40 mg tablet Take 1 tablet by mouth once daily. citalopram (CELEXA) 40 mg tablet Take 1 tablet by mouth once daily. pantoprazole DR (PROTONIX) 40 mg tablet Take 1 tablet by mouth once daily. gabapentin (NEURONTIN) 100 mg capsule Take 1 capsule by mouth three times a day for 30 days. HYDROcodone-Acetaminophe n (NORCO) 10-325 mg per tablet Take 1 tablet by mouth every 12 hours. ZINC PICOLINATE ORAL Take 50 mg by mouth once daily. MAGNESIUM GLYCINATE ORAL Take 500 mg by mouth once daily. Ascorbic Acid (VITAMIN C) 1,000 mg tablet Take 1,000 mg by mouth once daily. Biotin 10,000 mcg cap Take 10,000 mcg by mouth once daily. melatonin 12 mg tab Take 12 mg by mouth daily at bedtime. vitamin b complex (B-COMPLEX) tab Take 1 tablet by mouth once daily. VITAMIN K2 100 MCG CAPSULE ubidecarenone/vitamin E mixed (COQ10 SG 100 ORAL) Take 100 mg by mouth once daily. nitroglycerin sublingual (NITROQUICK) 0.4 mg SL tablet Dissolve 1 tablet under the tongue as needed. DISSOLVE ON TONGUE FOR CHEST PAIN. IF NO PAIN RELIEF, CALL 911 albuterol HFA (VENTOLIN HFA) 90 mcg/actuation inhaler Inhale 2 Puffs as instructed every 4 hours as needed for wheezing/shortness of breath. PEG 400-propylene glycol (SYSTANE ULTRA) 0.4-0.3 % ophthalmic solution Use 1 Drop in both eyes every 2 hours while awake. POLYVINYL ALCOHOL (20/20 ARTIFICIAL TEARS OPHTHALMIC) Use in eyes as needed. blood sugar diagnostic test strip Test blood (more content not included)... [facility] BRIEF OP NOTon 11-01-2024 BRIEF OP NOT HNO ID: [id number] Author: ADRIEL SOLIS MD Service: General Surgery Author Type: Physician Type: Brief Op Note Filed: 11/01/2024 10:01 Note Text: BRIEF OPERATIVE NOTATION FOR SURGICAL PROCEDURE. Zoraida Pires 1950 [id number] female LOG ID: [id number] Surgery/Procedure Date: 11/01/2024 Incision/Procedure Start Time: 8:12 AM Incision Close/Procedure End Time: 9:55 AM Surgeon(s)/Proceduralist (s) and Marine Drafter(s): Surgeons and Role: * Adriel Solis MD - Primary Physician Marine Drafter: Gill Rojas PA-C REFERRING PHYSICIAN: Outpatient DEPT: PROVIDER: Enriqueta POS: [id number] ANESTHESIA: General ASA CLASS: 3 - Severe DIAGNOSIS: incisional hernia - upper midline, umbilical hernia, RLQ adhesions PROCEDURE: Initial anterior abdominal hernia repair: 57555 - 3-10 cm incarcerated or strangulated, Laparoscopic Lysis of Adhesions - 11404 IVF: 800 EBL: 10 Specimens: hernia sacs ADDITIONAL DIAGNOSES: FINDINGS: 3cm upper to left left of midline defect, 1cm umbilical, RLQ adhesions COMPLICATIONS: None PMHx - PAST MEDICAL HISTORY Diagnosis Date Atherosclerosis Cataract both eyes Chronic kidney disease, stage I Degenerative disc disease Depression Diabetes mellitus (HCC) Essential hypertension, benign Hemorrhage of gastrointestinal tract, unspecified History of coronary angioplasty implant AND graft Impaired circulation of left leg both legs Neuropathy Other acute and subacute form of ischemic heart disease 06/01/1995 Other and unspecified hyperlipidemia 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 - [id number] Implant Name Type Inv. Item Serial No. Instructional Design Technologist Lot No. LRB No. Used Action MESH PARIETENE DS [id number] X1 - [id number] Mesh MESH PARIETENE DS [id number] X1 [employer] [id number] N/A 1 Implanted Adriel Solis MD [facility] HISTORY PHYSICALon HISTORY PHYSICAL HNO ID: [id number] Author: ADRIEL SOLIS MD Service: General Surgery Author Type: Physician Type: H&P Filed: 11/01/2024 07:26 Note Text: HISTORY AND PHYSICAL Zoraida Pires 1950 REFERRING PHYSICIAN: Sandy Braswell MD CHIEF COMPLAINT: Consult (Feels she needs hernia surgery, was recommended prior but had not quit smoking) HPI: The patient is a 73 year old female with a complaint of incisional hernias. Meeta is a 73-year-old female with a history of DM, hypothyroidism, and recent cardiac surgery, presenting for preoperative evaluation and management of her insulin pump prior to an upcoming hernia repair surgery. Meeta has been using a continuous insulin pump for glycemic control, which has resulted in a recent HbA1c of 6.8. She checks her blood glucose levels four times daily. She is unsure how to adjust the pump settings and will need guidance from her timber girdler to reduce it to basal rate before surgery. She inquires about the expected duration of the hernia repair surgery, which is estimated to be approximately 2 hours. She is also taking Synthroid and was advised to take it on an empty stomach. She has a history of recent cardiac surgery and inquires about the presence of chest tube sites, noting three areas on her chest. She is not on any anticoagulants other than aspirin and is advised to continue her regular medications, including aspirin, with a sip of water on the morning of surgery. She is flexible with the surgery date and prefers it to be scheduled as soon as possible, ideally before her birthday on [birth year]. She mentions that her brother will be available to watch her dog during her recovery period. She also plans to have a colonoscopy approximately 8 weeks after the hernia repair surgery. At her last office visit on August 17, 2024 I noted: Meeta is a 73-year-old female with a history of diabetes mellitus, PVD, and CAD, presenting with a bulge and discomfort at a prior transverse RUQ incision site. Meeta reports a bulge and discomfort along the medial aspect of a prior transverse RUQ incision, with exacerbation during lifting and coughing. She was initially evaluated 2 years ago for similar complaints, at which time a CT scan was discussed. She notes that the hernia appears to be enlarging. She has a history of diabetes mellitus, for which she is currently taking 27 units of Tresiba daily and Fiasp as needed. She reports that her blood glucose levels are "out of whack" and is preparing to start using an insulin pump. She also has a history of PVD and underwent bilateral peripheral stent placements approximately 2 years ago. She is a current smoker, consuming half a pack of cigarettes per day, but is attempting to quit. Meeta has a history of CAD and experienced worsening angina in November of last year. She underwent a cardiac catheterization, which revealed a 70% LAD lesion, an 80% circumflex lesion, and a totally occluded RCA. She subsequently underwent revascularization surgery in December of last year at [facility]. Her postoperative course was complicated by renal failure, requiring dialysis. She reports that her renal function has since improved, with recent blood work in June showing good results. She is scheduled for a follow-up appointment with her marketing proposal specialist next month. She denies any current chest pain or discomfort and was last seen by her hatch tender in June, who reportedly found no issues. She is currently taking aspirin and Coreg. She also has a history of a ruptured appendix, for which she has a large scar. She denies any sensation of a lower abdominal hernia. The patient is being seen by me at the request of Dr. Sandy Braswell MD for my opinion and advice regarding incisional hernia increasing in size. Since her last visit, she is seeing her timber girdler and is now on an insulin pump. Her blood sugars and hemoglobin A1c see under much better control. She was given recommendations for adjusting her insulin pump in the perioperative phase. She was also seen by the [facility]. Their consultation felt that she was appropriate to proceed with surgery from a cardiac standpoint. 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 [facility] OPERATIVE NOon 11-01-2024 OPERATIVE NO HNO ID: [id number] Author: ADRIEL SOLIS MD Service: General Surgery Author Type: Physician Type: Operative Report Filed: 11/03/2024 08:08 Note Text: [facility] - Operative Report ZORAIDA PIRES : 1950 AGE: 73. SEX: F PATIENT TYPE: A HOSP [facility]: [facility] LOCATION: [facility] [place] [facility] [facility] [place] ATT[place]ING PHYSICIAN: ADRIEL SOLIS CSN NUMBER: [id number] DATE OF SURGERY/PROCEDURE: 11/01/2024 INCISION/PROCEDURE START TIME: 8:12 a.m. INCISION CLOSE/PROCEDURE END TIME: 9:55 a.m. PREOPERATIVE DIAGNOSIS: Upper abdominal incisional hernia, small umbilical hernia. POSTOPERATIVE DIAGNOSIS: Upper abdominal incisional hernia to the left of midline approximately 3 cm in size with a 1 cm umbilical hernia and adhesion of small bowel and omentum and mesentery over the right lower quadrant. SURGEON: Adriel Solis M.D. ALGEBRA TEACHER: Gill Rojas PA-C. SURGERY/PROCEDURE: Laparoscopic anterior abdominal hernia repair 3 to 10 cm incarcerated and laparoscopic lysis of adhesions. ANESTHESIA: General endotracheal. LOGIN ID NUMBER: [id number] ANESTHESIOLOGIST: Dr. Vitaly Hernandez. ASA: 3. INTRAVENOUS FLUIDS: 800 mL. ESTIMATED BLOOD LOSS: 10 mL. URINE OUTPUT: No catheter. SPECIMENS: Hernia sac. FINDINGS: As described above. Mesh placed with a 10 x 15 Medtronic Parietene DS mesh placed transversely over both the left-sided defect and extending past the midline given the fact that the patient had a previous open transverse cholecystectomy incision. DRAINS: None. COMPLICATIONS: None. DESCRIPTION OF PROCEDURE: The left of midline incisional hernia was marked in the holding area and the umbilical site was marked in the holding area. Also, the patient concurred that this was planned 2 hernial sites. Sign-in was performed verifying the patient, site, procedure, position, critical nursing information, VTE, and antibiotic prophylaxis. The patient received 2 g of Ancef and had sequential compression devices placed. The patient had insulin pump and a continuous insulin monitor, her blood sugar was approximately 160. She had decreased her basal insulin. She was brought back to the operative suite. Following induction of general anesthetic, patient was prepped and draped in usual fashion. Time-out was performed verifying patient, site, procedure, position. Local anesthetic with 50:50 mixture of lidocaine and Marcaine was injected below the umbilicus. The incision was made, extended through the fascia. Two stay sutures were placed in the fascia. Incision was made through the hernia sac and the peritoneum under direct visualization. Christy trocar was inserted. The balloon was inflated. Pneumoperitoneum to 15 mmHg was insufflated. Two 5 mm ports were placed in the right lateral position. Visual inspection revealed the defect noted to be left of midline by approximately 2 cm. There was omentum incarcerated within the hernia sac. There were no incarceration at the umbilical site and there were adhesions in the right lower quadrant from previous surgery, which included small bowel, omentum, and mesentery. Sonicision was used to divide the falciform ligament up to level of the superior aspect of the overlying mesh placement. The hernia sac with omentum was then withdrawn. There was a very thin portion of the omentum, which was then transected freeing up the omentum freely, then the remainder of the hernia sac, omentum, and was felt to be some preperitoneal fat was cleaned circumferentially from the fascial defect withdrawn, and the hernia sac small amount of omentum and some preperitoneal fat were released and excised. This was then brought up through the umbilical pouch. Following this, with marking, I planned to use a 15 x 10 cm mesh to overlap as stated the transverse incision past the midline. Overlap was felt to be at 4 cm over the fascial defect superiorly and through laterally, and then the extra length of mesh placed towards the right upper quadrant. The mesh was placed transverse. Transfixing sutures of 0 Prolene used to secure the mesh in 5 sites, 2 inferior, left and right, and superior; and then, a ProTack Tacker was used to tack the mesh along the outer ring and then tacked along theinner aspect. Sonicision was used to free up the adhesions of the right lower quadrant down to the pelvis to minimize the risk of postoperative internal herniation due to previous adhesions. Following this, pneumoperitoneum was released. The umbilicus was released from the hernia sac. The hernia sac was cleaned to the fascia. The fascia defect was felt to be just slightly larger than 1 cm. This was closed with 0 Prolene figure-of- eight sutures. Pneumoperitoneum was reestablished. There was no entrapped mesh at the umbilical site. One tack was felt to not be well placed. This was withdrawn. This was in the medial sac and brought out through the umbilical incision. Following th (more content not included)... Normal [facility] Pathology biopsy report Vincenzo (Tiss)on 11-01-2024 AP DISCLAIMER [facility] Comment on above: Order Comment: Speci homero Type: TISSUE SPECIMEN Ordering Facility: [facility] Address: [address] [place] [address] Result Comment: Maryellen hong Developed Test (LDT) Disclaimer: Performance characteristics of immunohistochemical, immunofluorescent, and chromogenic in-situ hybridization tests have been determined by the performing laboratory within [facility] Pathology and Laboratory Medicine Department ([facility], [facility], [facility], [facility], [facility], [facility], or [facility]) in a manner consistent with CLIA requirements. One or more of these tests may not have been cleared or approved by the FDA. [facility] is regulated under CLIA as qualified to perform high-complexity testing. These tests are used for clinical purposes. These should not be regarded as investigational or for research. Positive and negative controls stain appropriately. Performed By: #### 6 [id number] #### [facility] CLIA [id number] [address] [place] [address], [address] [place] [address] OF [facility] CLIA [id number] [address] [place] [address] OF DAMI[facility] CASE REPORT Normal [facility] Comment on above: Order Comment: Speci homero Type: TISSUE SPECIMEN Ordering Facility: [facility] Address: [address] [place] [address] Result Comment: Surg ical Pathology Report Case: [id number] Authorizing Provider: Adriel Solis MD Collected: 11/01/2024 08:34 AM Ordering Location: [facility] Surgery Received: 11/01/2024 11:35 AM Pathologist: Gian Tenorio MD Specimen: Hernia Sac Performed By: #### 6 6121-5 #### [facility] CLIA [id number] [address] [place] [address] 3, [address] [place], [place] [id number] [place] [facility] CLIA [id number] [address] [place] [address] OF [place] CLINICAL HISTORY Normal [facility] Comment on above: Order Comment: Speci men Type: TISSUE SPECIMEN Ordering Facility: [facility] Address: [address] [place] [address] Result Comment: Pre- op diagnosis: Incisional hernia, without obstruction or gangrene [K43.2] Type 2 diabetes mellitus with hyperglycemia, with long-term current use of insulin (HCC) [E11.65, Z79.4] Peripheral vascular disease [I73.9] Presence of coronary angioplasty implant and graft [Z95.5] Chronic kidney disease, stage 1 [N18.1] Performed By: #### 6 6121-5 #### [facility] CLIA [id number] [address] [place] [address], [address] [place] [address] [place] [facility] CLIA [id number] [address] [place] [address] FINAL DIAGNOSIS [facility] Comment on above: Order Comment: Speci men Type: TISSUE SPECIMEN Ordering Facility: [facility] Address: [address] [place] [address] Result Comment: A. S oft tissue, incisional, herniorrhaphy: - Hernia sac. at 1151 EDT Performed By: #### 6 6121-5 #### [facility] CLIA [id number] [address] [place] [address], [address] [place], [place] [id number] [place] [facility] CLIA [id number] [address] [place] [address] OF [facility] FINAL PERFORMING LAB [facility] Comment on above: Order Comment: Speci men Type: TISSUE SPECIMEN Ordering Facility: [facility] Address: [address] [place] [address] Result Comment: Diag nostic interpretation performed at: [facility], [address] [place] [address], [address]th [place] [address] CLIA# [id number] Procurement Professional: Gian Tenorio MD Performed By: #### 6 6121-5 #### [facility] CLIA [id number] [address] [place] [address] 3, [address] OF [place] [facility] CLIA [id number] [address] [place] [address] [place] GROSS DESCRIPTION A. Hernia Sac Normal [facility] Comment on above: Order Comment: Speci men Type: TISSUE SPECIMEN Ordering Facility: [facility] Address: [address] [place] [address] Result Comment: Rece ived in formalin labeled "hernia sac" are multiple irregular fragments of marie-pink membranous soft tissue with attached adipose tissue aggregating to 6.0 x 5.5 x 2.0 cm. Professor Of Graphic Design tissue is submitted in A1. [place] [address] MSL/JUAN C 11/01/24 3:36 PM Performed By: #### 6 6121-5 #### [facility] IA [id number] [address] [place] [address] 3, [address] [place] [address] [place] [facility] CLIA [id number] [address] [place] [address] OF [facility] Office Visit Reporton 2024 Office Visit Report [facility] [address] [place] [address] OFFICE VISIT Date of Service: 10/31/24 MR#: [id number] Acct: [id number] Patient: ZORAIDA PIRES Rep #: [id number] : 1950 Provider: LAURA pike Age/Sex: 73/F Location[place] [facility] Status: Signed Intake Vital Signs 10/25/24 14:02 Height 5 ft Intake Visit Reasons: Pump Adjustments for Surgery Chief Complaint: reclast Allergies No Known Allergies Allergy (Verified 10/25/24 14:00) Have you fallen in the past year?: No Nursing Note Pt came in to get her pump settings changed prior to surgery. Assessment and Plan Assessment and Plan (1) Type 1 diabetes mellitus with hyperglycemia: Status: Chronic (2) Presence of insulin pump: Status: Chronic (3) Insulin pump titration: Status: Acute Patient Instructions: Patient was shown how to place pump in temp target for surgery. Clinical Quality Measures Falls Risk Screening/Assistive Devices Have you fallen in the past year?: No 10/31/24 1258 Date Itzel Dominguez NP-C Cosigner Signature: Date (if applicable) CC: Normal [facility] POTASSIUMon 10-21-2024 Interpretation and review of laboratory results Normal [facility] Potassium [Moles/Vol] 4.5 mmol/L 3.7 - 5.1 mmol/L [facility] Potassium [Moles/Vol] 4.5 mmol/L Normal 3.7-5.1 [facility] Comment on above: Order Comment: Speci men Type: BLOOD SPECIMENOrdering Facility: [facility] Address: [address] [place] [address] Performed By: #### K 1 ####[facility] [id number] [address] STATES [place] MR/Carroll 10-19-2024 MR/MICHELLE [facility] Vascular Surgery [address] [place] [address]. [address] [place] [address] OFFICE VISIT Date of Service: 10/19/24 MR#: [id number] Acct: [id number] Name: ZORAIDA PIRES Rep #: [id number] : 1950 Provider: YANETH Hawkins Age/Sex: 73/F Location: [facility] Status: Signed Intake Vital Signs 09/22/24 07:33 09/30/24 14:21 10/19/24 14:36 Height 5 ft 10 in 5 ft 10 in Weight: 128 lb 130 lb BMI 18.3 BP 100/61 101/52 L Blood Pressure Location Lt brachial Rt brachial Position Sitting Sitting Respiration 18 16 Pulse 58 L 61 Pulse Source Monitor Monitor Temp 98.4 F Temp Source Temporal Pulse Oximetry (%) 98 98 Oxygen Delivery Method room air Intake Visit Reasons: 2 Y FU Chief Complaint: f/u diabetes Is patient in pain?: Yes Allergies No Known Allergies Allergy (Verified 10/19/24 14:36) Medications ???Medication ???Instructions ???Recorded ???Confirmed ???Type albuterol 90 mcg/actuation aerosol 90 mcg inhalation DAILY 03/14/22 10/19/24 History inhaler blood sugar diagnostic (Truetest 03/14/22 10/19/24 History Test Strips) hydrocodone 7.5 mg-acetaminophen 1 tab PO Q6H PRN Pain 03/14/22 History 325 mg tablet pantoprazole 40 mg tablet,delayed 40 mg PO DAILY 03/14/22 10/19/24 History release polyvinyl alcohol 1.4 % eye drops 1 drp ophthalmic (eye) BID-QID 10/19/24 History rosuvastatin 40 mg tablet 40 mg PO DAILY 03/14/22 10/19/24 H istory citalopram 40 mg tablet 40 mg PO DAILY 07/25/22 10/19/24 H istory nitroglycerin 0.4 mg sublingual 0.4 mg sublingual ONCE #25 tabs 10/19/24 Rx tablet trazodone 50 mg tablet 50 mg PO DAILY 07/13/23 10/19/24 H istory aspirin 81 mg tablet,delayed 81 mg PO QDAY #90 tabs 04/12/24 Rx release (Adult Aspirin Regimen) gabapentin 100 mg capsule 100 mg PO TID 04/12/24 10/19/24 Hi story umeclidinium 62.5 mcg/actuation 1 inh inhalation QDAY 04/12/24 History blister powder for inhalation (Incruse Ellipta) carvedilol 3.125 mg tablet 3.125 mg PO BID #180 tabs 05/26/24 10/19/24 Rx ascorbic acid (vitamin C) 1,000 mg 1 g PO Q6H 06/13/24 10/19/24 His tory capsule cholecalciferol (vitamin D3) 250 250 mcg PO QDAY 06/13/24 10/19/24 History mcg (10,000 unit) capsule coenzyme [id number] 100 mg-100 cap PO 06/13/24 10/19/24 History unit capsule ferrous gluconate 325 mg (37 mg 18 mg PO QDAY 06/13/24 10/19/24 Hi story iron) tablet magnesium glycinate 100 mg (as 500 mg PO QDAY 06/13/24 10/19/24 H istory glycinate) tablet selenium 200 mcg capsule 200 mcg PO QDAY 06/13/24 10/19/24 History vit B complex 100 combo no.2 100 tab PO 06/13/24 10/19/24 History mg tablet,extended release (B-100 Complex ER) vitamin K2 100 mcg capsule 100 mcg PO QDAY 06/13/24 10/19/24 History zinc 50 mg tablet 50 mg PO QDAY 06/13/24 10/19/24 Hi story levothyroxine 75 mcg tablet 75 mcg PO QDAY #90 tabs 06/16/24 0 10/19/24 Rx insulin aspart 14 unit subcut TID #12.6 mL 10/19/24 Rx (niacinamide)(U-100) 100 unit/mL(3 mL) subcutaneous pen (Fiasp FlexTouch U-100 Insulin) blood sugar diagnostic (Accu-Chek #100 ea 08/15/24 10/19/24 Rx Guide test strips) insulin aspart (niacinamide) 75 unit subcut .continuous #30 mL 08/15/24 10/19/24 Rx (U-100) 100 unit/mL subcutaneous solution (Fiasp U-100 Insulin) lancets (Accu-Chek Softclix #100 ea 08/15/24 10/19/24 Rx Lancets) lisinopril 20 mg tablet 20 mg PO QDAY 09/12/24 10/19/24 Hi story zoledronic acid 5 mg/100 mL in See Rx Instructions .Route 5 10/19/24 Rx mannitol 5 %-water intravenous .COMPLEX #100 mL piggybck Is last menstrual period known: No Post menopausal: Yes Patient : No Have you fallen in the past year?: No PFSH Medical History History of tobacco use Other bursitis of knee, left knee Tobacco use disorder, continuous Encounter for screening for malignant neoplasm of lung Chronic insomnia Abdominal wall lump DDD (degenerative disc disease) PVD (peripheral vascular disease) Sleep apnea Dyspnea on exertion Mixed hyperlipidemia PAD (peripheral artery disease) History of left heart catheterization (LHC) ( 04/11/15) GERD (gastroesophageal reflux disease) CKD (chronic kidney disease) stage 3, GFR 30-59 ml/min Essential hypertension Presence of stent in coronary artery ( 2004) Atherosclerotic heart disease of [place] coronary artery without angina pectoris Encounter for vitamin deficiency screening Diabetic retinopathy associated with type 1 diabetes mellitus Polyneuropathy due to type 1 diabetes mellitus Appendicitis Proteinuria Lower back pain Heart attack Surg (more content not included)... [facility] 10-14-2024 MARIO Telephone (JCARLOS) -------- ZORAIDA PIRES ([id number]) 1950 F Date Time Provider Department 10/14/24 ANGI MARTIN During your visit today, we recorded the following information about you: Angi Martin APRN.ADVANCED CLINICAL SPECIALIST 10/14/2024 9:11 AM Signed Notify pt her potassium level was elevated 5.4, lets recheck beginning of next week on Thursday if she can make that work. Try to avoid potassium rich foods Irasema Rey LPN 10/14/2024 9:39 AM Signed Called and spoke with patient. She will recheck labs early next week. JULIANA Olivo Jillian S, APRN.CNP 10/20/2024 2:08 PM Signed Call pt and notify, she needs to complete labs ALYSSA. Renay Zavala LPN 10/20/2024 3:10 PM Signed Phoned patient and she stated that she will try to come in tomorrow Thursday10/21/24 for labs if not she will be in early next week. Renay Zavala LPN Allergies As of Date: 10/14/2024 (No Known Allergies) Date Reviewed: 10/13/2024 Reviewed by: Angi Martin APRN.ADVANCED CLINICAL SPECIALIST - Fully Assessed Reason for Visit: Results [95] Primary Visit Diagnosis:Pre-operative examination [Z01.818] Order(s):POTASSIUM [SQK1] Order #: [id number] FUTURE Prescriptions as of 11/03/2024 - oxyCODONE-acetaminophen (PERCOCET) 5-325 mg tablet Take 1 tablet by mouth four times a day as needed for pain for up to 5 days. FOR PAIN. - traZODone (DESYREL) 50 mg tablet Take 1 tablet by mouth at bedtime as needed. - gabapentin (NEURONTIN) 100 mg capsule Take 1 capsule by mouth three times a day for 30 days. - lisinopril (ZESTRIL) 20 mg tablet Take 20 mg by mouth once daily. - aspirin, enteric coated (ASPIRIN, ENTERIC COATED) 81 mg EC tablet Take 1 tablet by mouth once daily. - carvedilol (COREG) 3.125 mg tablet Take 3.125 mg by mouth two times a day with meals. - levothyroxine (SYNTHROID) 75 mcg tablet Take 1 tablet by mouth every afternoon. - HYDROcodone-Acetaminophe n (NORCO) 10-325 mg per tablet Take 1 tablet by mouth every 12 hours. - ZINC PICOLINATE ORAL Take 50 mg by mouth once daily. - ferrous bis-glycinate chelate (IRON BISGLYCINATE CHELATE ORAL) Take 18 mg by mouth once daily. - MAGNESIUM GLYCINATE ORAL Take 500 mg by mouth once daily. - Ascorbic Acid (VITAMIN C) 1,000 mg tablet Take 1,000 mg by mouth once daily. - Selenium 100 mcg tab Take 100 mcg by mouth once daily. - cholecalciferol, vitamin D3, (VITAMIN D3 ORAL) Take 250 mcg by mouth once daily. - Biotin 10,000 mcg cap Take 10,000 mcg by mouth once daily. - melatonin 12 mg tab Take 12 mg by mouth daily at bedtime. - vitamin b complex (B-COMPLEX) tab Take 1 tablet by mouth once daily. - VITAMIN K2 100 MCG CAPSULE - ubidecarenone/vitamin E mixed (COQ10 SG 100 ORAL) Take 100 mg by mouth once daily. - rosuvastatin (CRESTOR) 40 mg tablet Take 1 tablet by mouth once daily. - nitroglycerin sublingual (NITROQUICK) 0.4 mg SL tablet Dissolve 1 tablet under the tongue as needed. DISSOLVE ON TONGUE FOR CHEST PAIN. IF NO PAIN RELIEF, CALL 911 - citalopram (CELEXA) 40 mg tablet Take 1 tablet by mouth once daily. - pantoprazole DR (PROTONIX) 40 mg tablet Take 1 tablet by mouth once daily. - albuterol HFA (VENTOLIN HFA) 90 mcg/actuation inhaler Inhale 2 Puffs as instructed every 4 hours as needed for wheezing/shortness of breath. - PEG 400-propylene glycol (SYSTANE ULTRA) 0.4-0.3 % ophthalmic solution Use 1 Drop in both eyes every 2 hours while awake. - POLYVINYL ALCOHOL (20/20 ARTIFICIAL TEARS OPHTHALMIC) Use in eyes as needed. 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 os bid and pink cap is qid, not sure of med names, pt didn't bring bottles Problem List As Of Date 10/14/2024 Noted Resolved Disturbance of skin sensation [R20.9] 06/29/2003 09/19/2022 Special screening for malignant neoplasms, colo*06/16/2007 05/31/2012 GASTRITIS/DUODEN NOS W/O HEMORRH [K29.70, K29.9*09/23/2007 Blood in stool [K92.1] 09/23/2007 09/19/2022 Hyperlipidemia [E78.5] 07/04/2010 Hypothyroid [E03.9] 07/04/2010 HTN (hypertension) [I10] 07/04/2010 Reflux [RTM9838] 07/04/2010 09/19/2022 Depression [F32.A] 07/04/2010 Status post coronary artery stent placement [Z9*07/04/2010 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*07/04/2010 CAD (coronary artery disease) [I25.10] 07/04/2010 Degenerative disc disease [BQF3585] 07/04/2010 Osteoarthritis of right shoulder region [M19.01*07/04/2010 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) [E13*07/04/2010 09/19/2022 Proliferative diabetic retinopathy(362.02) (HC*08/30/2010 07/18/2014 Routine general medical examination at a health*10/23/2010 05/31/2012 Class: Chronic Routine gynecological examination [Z01.419] 10/23/2010 05/31/2012 Class: Chronic Low back pain [M54.50] 10/23/2010 09/19/2022 Other benign neoplasm of connective and other s*01/16/2011 09/20/19 (more content not included)... Normal [facility] Basic metabolic 2000 panelOr dered By: Danielle Washington on 10-13-2024 Anion gap [Moles/Vol] 9 mmol/L 8 - 15 mmol/L [facility] Calcium [Mass/Vol] 10 mg/dL 8.5 - 10. 2 mg/dL [facility] Chloride [Moles/Vol] 106 mmol/L 98 - 10 7 mmol/L [facility] CO2 [Moles/Vol] 23 mmol/L 22 - 30 mmol/L [facility] Creatinine [Mass/Vol] 1.07 mg/dL High 0.58 - 0.96 mg/dL [facility] GFR/1.73 sq M.predicted among non-blacks MDRD (S/P/Bld) [Vol rate/Area] 56 mL/min/{1.73_m2} Low - PINF [facility] Comment on above: Estimated Glomerular Filtration Rate (eGFR) is calculated using the 2020 CKD-EPI creatinine equation. This equation utilizes serum creatinine, sex, and age as parameters. The creatinine assay has traceable calibration to isotope dilution-mass spectrometry. Refer to KDIGO guidelines for clinical interpretation. In patients with unstable renal function, e.g. those with acute kidney injury, the eGFR may not accurately reflect actual GFR. Glucose [Mass/Vol] 115 mg/dL High 74 - 99 mg/dL [facility] Comment on above: The [place] Diabete s Association (ADA) provides guidance for cutoff values for fasting glucose and random glucose. The ADA defines fasting as no caloric intake for at least 8 hours. Fasting plasma glucose results between 100 to 125 mg/dL indicate increased risk for diabetes (prediabetes). Fasting plasma glucose results greater than or equal to 126 mg/dL meet the criteria for diagnosis of diabetes. In the absence of unequivocal hyperglycemia, results should be confirmed by repeat testing. In a patient with classic symptoms of hyperglycemia or hyperglycemic crisis, random plasma glucose results greater than or equal to 200 mg/dL meet the criteria for diagnosis of diabetes. Reference: Standards of Medical Care in Diabetes 2016, [place] Diabetes Association. Diabetes Care. 2016.39(Suppl 1). Interpretation and review of laboratory results Abnormal [facility] Potassium [Moles/Vol] 5.4 mmol/L High 3.7 - 5.1 mmol/L [facility] Sodium [Moles/Vol] 138 mmol/L 136 - 144 mmol/L [facility] Urea nitrogen [Mass/Vol] 29 mg/dL High 7 - 21 mg/dL [facility] Basic metabolic 2000 panelon 10-13-2024 Anion gap [Moles/Vol] 9 mmol/L Normal 8-15 [facility] Comment on above: Order Comment: Speci men Type: BLOOD SPECIMENOrdering Facility: [facility] Address: [address] [place] [address] Performed By: #### 2 4321-2 ####[facility] ROOMA [id number] [place] [address] [place] Calcium [Mass/Vol] 10.0 mg/dL Normal 8.5-10.2 [facility] Comment on above: Order Comment: Speci men Type: BLOOD SPECIMENOrdering Facility: [facility] Address: [address] [place] [address] Performed By: #### 2 4321-2 ####[facility] MILLWMDLIA [id number] [place] [address] [place] Chloride [Moles/Vol] 106 mmol/L Normal 98-107 [facility] Comment on above: Order Comment: Griseldai men Type: BLOOD SPECIMENOrdering Facility: [facility] Address: [address] [place] [address] Performed By: #### 2 4321-2 ####[facility] [id number] [place] [address] [place] CO2 [Moles/Vol] 23 mmol/L Normal 22-30 [facility] Comment on above: Order Comment: Speci men Type: BLOOD SPECIMENOrdering Facility: [facility] Address: [address] [place] [address] Performed By: #### 2 4321-2 ####[facility] [id number] [place] [address] [place] Creatinine [Mass/Vol] 1.07 mg/dL High 0.58-0.96 [facility] Comment on above: Order Comment: Speci men Type: BLOOD SPECIMENOrdering Facility: [facility] Address: [address] [place] [address] Performed By: #### 2 4321-2 ####[facility] [id number] [place] [address] [place] Creatinine and Glomerular filtration rate.predicted panel (S/P/Bld) 56 mL/min/1.73m??? Low >=60 [facility] Comment on above: Order Comment: Speci men Type: BLOOD SPECIMENOrdering Facility: [facility] Address: [address] [place] [address] Result Comment: Deena mated Glomerular Filtration Rate (eGFR) is calculated using the 2020 CKD-EPI creatinine equation. This equation utilizes serum creatinine, sex, and age as parameters. The creatinine assay has traceable calibration to isotope dilution-mass spectrometry. Refer to KDIGO guidelines for clinical interpretation. In patients with unstable renal function, e.g. those with acute kidney injury, the eGFR may not accurately reflect actual GFR. Performed By: #### 2 4321-2 ####[facility] [id number] [place] [address] [place] Glucose [Mass/Vol] 115 mg/dL High 74-99 [facility] Comment on above: Order Comment: Speci men Type: BLOOD SPECIMENOrdering Facility: [facility] Address: [address] [place], [place] [address] Result Comment: The [place] Diabetes Association (ADA) provides guidance for cutoff values for fasting glucose and random glucose. The ADA defines fasting as no caloric intake for at least 8 hours. Fasting plasma glucose results between 100 to 125 mg/dL indicate increased risk for diabetes (prediabetes). Fasting plasma glucose results greater than or equal to 126 mg/dL meet the criteria for diagnosis of diabetes. In the absence of unequivocal hyperglycemia, results should be confirmed by repeat testing. In a patient with classic symptoms of hyperglycemia or hyperglycemic crisis, random plasma glucose results greater than or equal to 200 mg/dL meet the criteria for diagnosis of diabetes. Reference: Standards of Medical Care in Diabetes 2016, [place] Diabetes Association. Diabetes Care. 2016.39(Suppl 1). Performed By: #### 2 4321-2 ####[facility] [id number] [place] [address] [place] Potassium [Moles/Vol] 5.4 mmol/L High 3.7-5.1 [facility] Comment on above: Order Comment: Speci men Type: BLOOD SPECIMENOrdering Facility: [facility] Address: [address] [place] [address] Performed By: #### 2 4321-2 ####[facility] [id number] [place] [address] [place] Sodium [Moles/Vol] 138 mmol/L Normal 136-144 [facility] Comment on above: Order Comment: Speci men Type: BLOOD SPECIMENOrdering Facility: [facility] Address: [address] [place], [place] [address] Performed By: #### 2 4321-2 ####[facility] [id number] [place] [address] [place] Urea nitrogen [Mass/Vol] 29 mg/dL High 7-21 [facility] Comment on above: Order Comment: Speci men Type: BLOOD SPECIMENOrdering Facility: [facility] Address: [address] [place], [place] [address] Performed By: #### 2 4321-2 ####[facility] DHARA HUERTA [id number] [place] [id number] [place] CBC W Auto Differential pane l (Bld)on 10-13-2024 Basophils (Bld) [#/Vol] 0.05 10*3/uL [facility] Basophils/100 WBC (Bld) 0.5 % [facility] Differential cell count method Nom (Bld) Auto [facility] Eosinophils (Bld) [#/Vol] 0.36 10*3/uL [facility] Eosinophils/100 WBC (Bld) 3.9 % [facility] Erythrocyte distribution width (RBC) [Ratio] 13.2 % 11.5 - 15.0 % [facility] Hematocrit (Bld) [Volume fraction] 33.4 % Low 36.0 - 46.0 % [facility] Hemoglobin (Bld) [Mass/Vol] 11 g/dL Low 11.5 - 15.5 g/dL [facility] Immature granulocytes (Bld) [#/Vol] [facility] Immature granulocytes/100 WBC (Bld) 0.2 % [facility] Interpretation and review of laboratory results Abnormal [facility] Lymphocytes (Bld) [#/Vol] 2.95 10*3/uL [facility] Lymphocytes/100 WBC (Bld) 31.8 % [facility] MCH (RBC) [Entitic mass] 30 pg 26.0 - 34.0 pg [facility] MCHC (RBC) [Mass/Vol] 32.9 g/dL 30.5 - 36.0 g/dL [facility] MCV (RBC) [Entitic vol] 91 fL 80.0 - 100.0 fL [facility] Monocytes (Bld) [#/Vol] 1 10*3/uL High [facility] Monocytes/100 WBC (Bld) 10.8 % [facility] Neutrophils (Bld) [#/Vol] 4.89 10*3/uL [facility] Neutrophils/100 WBC (Bld) 52.8 % [facility] Nucleated RBC (Bld) [#/Vol] NINF [facility] Nucleated RBC/100 WBC (Bld) [Ratio] 0 % /100 WBC [facility] Platelet mean volume (Bld) [Entitic vol] 8.9 fL Low 9.0 - 12.7 fL [facility] Platelets (Bld) [#/Vol] 186 10*3/uL [facility] RBC (Bld) [#/Vol] 3.67 10*6/uL Low 3.90 - 5.2 0 m/uL [facility] WBC (Bld) [#/Vol] 9.27 10*3/uL [facility] Basophils (Bld) [#/Vol] 0.05 10*3/uL Normal <0.11 [facility] Comment on above: Order Comment: Speci men Type: BLOOD SPECIMENOrdering Facility: [facility] Address: [address] [place] [address] Performed By: #### 5 7021-8 ####[facility] [id number] [place] [address] [place] OF [place] Basophils/100 WBC (Bld) 0.5 % Normal [facility] Comment on above: Order Comment: Speci men Type: BLOOD SPECIMENOrdering Facility: [facility] Address: [address] [place] [address] Performed By: #### 5 7021-8 ####[facility] [id number] [place] [address] [place] Differential cell count method Nom (Bld) Auto Normal [facility] Comment on above: Order Comment: Speci men Type: BLOOD SPECIMENOrdering Facility: [facility] Address: [address] [place] [address] Performed By: #### 5 7021-8 ####[facility] [id number] [place] [address] [place] Eosinophils (Bld) [#/Vol] 0.36 10*3/uL Normal <0.46 [facility] Comment on above: Order Comment: Speci men Type: BLOOD SPECIMENOrdering Facility: [facility] Address: [address] [place] [address] Performed By: #### 5 7021-8 ####[facility] [id number] [place] [address] [place] Eosinophils/100 WBC (Bld) 3.9 % Normal [facility] Comment on above: Order Comment: Speci men Type: BLOOD SPECIMENOrdering Facility: [facility] Address: [address] [place] [address] Performed By: #### 5 7021-8 ####[facility] [id number] [place] [address] [place] Erythrocyte distribution width (RBC) [Ratio] 13.2 % Normal 11.5-15.0 [facility] Comment on above: Order Comment: Speci men Type: BLOOD SPECIMENOrdering Facility: [facility] Address: [address] [place] [address] Performed By: #### 5 7021-8 ####[facility] [id number] [place] [address] [place] Hematocrit (Bld) [Volume fraction] 33.4 % Low 36.0-46.0 [facility] Comment on above: Order Comment: Speci men Type: BLOOD SPECIMENOrdering Facility: [facility] Address: [address] [place] [address] Performed By: #### 5 7021-8 ####[facility] [id number] [place] [address] [place] Hemoglobin (Bld) [Mass/Vol] 11.0 g/dL Low 11.5-15.5 [facility] Comment on above: Order Comment: Speci men Type: BLOOD SPECIMENOrdering Facility: [facility] Address: [address] [place] [address] Performed By: #### 5 7021-8 ####[facility] MILLWNCLIA [id number] [place] [address] [place] Immature granulocytes (Bld) [#/Vol] 10*3/uL Normal <0.10 [facility] Comment on above: Order Comment: Speci men Type: BLOOD SPECIMENOrdering Facility: [facility] Address: [address] [place] [address] Performed By: #### 5 7021-8 ####[facility] [id number] [place] [address] [place] Immature granulocytes/100 WBC (Bld) 0.2 % Normal [facility] Comment on above: Order Comment: Speci men Type: BLOOD SPECIMENOrdering Facility: [facility] Address: [address] [place] [address] Performed By: #### 5 7021-8 ####[facility] [id number] [place] [address] [place] Lymphocytes (Bld) [#/Vol] 2.95 10*3/uL Normal 1.00-4.00 [facility] Comment on above: Order Comment: Speci men Type: BLOOD SPECIMENOrdering Facility: [facility] Address: [address] [place] [address] Performed By: #### 5 7021-8 ####[facility] [id number] [place] [address] [place] Lymphocytes/100 WBC (Bld) 31.8 % Normal [facility] Comment on above: Order Comment: Speci men Type: BLOOD SPECIMENOrdering Facility: [facility] Address: [address] [place] [address] Performed By: #### 5 7021-8 ####[facility] [id number] [place] [address] [place] MCH (RBC) [Entitic mass] 30.0 pg Normal 26.0-34.0 [facility] Comment on above: Order Comment: Speci men Type: BLOOD SPECIMENOrdering Facility: [facility] Address: [address] [place] [address] Performed By: #### 5 7021-8 ####[facility] [id number] [place] [address] [place] MCHC (RBC) [Mass/Vol] 32.9 g/dL Normal 30.5-36.0 [facility] Comment on above: Order Comment: Speci men Type: BLOOD SPECIMENOrdering Facility: [facility] Address: [address] [place] [address] Performed By: #### 5 7021-8 ####[facility] [id number] [place] [address] [place] MCV (RBC) [Entitic vol] 91.0 fL Normal 80.0-100.0 [facility] Comment on above: Order Comment: Speci men Type: BLOOD SPECIMENOrdering Facility: [facility] Address: [address] [place] [address] Performed By: #### 5 7021-8 ####[facility] [id number] [place] [address] [place] Monocytes (Bld) [#/Vol] 1.00 10*3/uL High <0.87 [facility] Comment on above: Order Comment: Speci men Type: BLOOD SPECIMENOrdering Facility: [facility] Address: [address] [place] [address] Performed By: #### 5 7021-8 ####[facility] [id number] [place] [address] [place] Monocytes/100 WBC (Bld) 10.8 % Normal [facility] Comment on above: Order Comment: Speci men Type: BLOOD SPECIMENOrdering Facility: [facility] Address: [address] [place] [address] Performed By: #### 5 7021-8 ####[facility] ADAIRWNCLIA [id number] [place] [address] [place] Neutrophils (Bld) [#/Vol] 4.89 10*3/uL Normal 1.45-7.50 [facility] Comment on above: Order Comment: Speci men Type: BLOOD SPECIMENOrdering Facility: [facility] Address: [address] [place] [address] Performed By: #### 5 7021-8 ####[facility] [id number] [place] [address] [place] Neutrophils/100 WBC (Bld) 52.8 % Normal [facility] Comment on above: Order Comment: Speci men Type: BLOOD SPECIMENOrdering Facility: [facility] Address: [address] [place] [address] Performed By: #### 5 7021-8 ####[facility] [id number] [place] [address] [place] Nucleated RBC (Bld) [#/Vol] 10*3/uL Normal <0.01 [facility] Comment on above: Order Comment: Speci men Type: BLOOD SPECIMENOrdering Facility: [facility] Address: [address] [place] [address] Performed By: #### 5 7021-8 ####[facility] MILLWNCLIA [id number] [place] [address] [place] Nucleated RBC/100 WBC (Bld) [Ratio] 0.0 /100 WBC Normal [facility] Comment on above: Order Comment: Speci men Type: BLOOD SPECIMENOrdering Facility: [facility] Address: [address] [place] [address] Performed By: #### 5 7021-8 ####[facility] [id number] [place] [address] [place] Platelet mean volume (Bld) [Entitic vol] 8.9 fL Low 9.0-12.7 [facility] Comment on above: Order Comment: Speci men Type: BLOOD SPECIMENOrdering Facility: [facility] Address: [address] [place] [address] Performed By: #### 5 7021-8 ####[facility] ADAIRMICHAELA [id number] [place] [address] [place] Platelets (Bld) [#/Vol] 186 10*3/uL Normal 150-400 [facility] Comment on above: Order Comment: Speci men Type: BLOOD SPECIMENOrdering Facility: [facility] Address: [address] [place] [address] Performed By: #### 5 7021-8 ####[facility] [id number] [place] [address] [place] RBC (Bld) [#/Vol] 3.67 10*6/uL Low 3.90-5.20 [facility] Comment on above: Order Comment: Speci men Type: BLOOD SPECIMENOrdering Facility: [facility] Address: [address] [place] [address] Performed By: #### 5 7021-8 ####[facility] ADAIRCAMBRIDGENOHEMILIA [id number] [place] [address] [place] WBC (Bld) [#/Vol] 9.27 10*3/uL Normal 3.70-11.00 [facility] Comment on above: Order Comment: Speci men Type: BLOOD SPECIMENOrdering Facility: [facility] Address: [address] [place] [address] Performed By: #### 5 7021-8 ####[facility] [id number] [place] [address] [facility] [id number] 10-13-2024 ECG01 Ventricular Rate : 5 4 BPM Atrial Rate : 54 BPM P-R Interval : 142 ms QRS Duration : 92 ms Q-T Interval : 478 ms QTC Calculation(Bazett) : 453 ms Calculated P [place] : -11 degrees Calculated R [place] : 33 degrees Calculated T [place] : 38 degrees SINUS BRADYCARDIA INFERIOR MYOCARDIAL INFARCTION , AGE UNDETERMINED ABNORMAL ECG Confirmed by MD ARRIETA QARAB ([id number]) on 10/17/2024 12:13:52 PM NAME : ZORAIDA PIRES PID : [id number] : 1950 Gender : Female Race : ORD : Procedure Date : Oct 13 2024 10:31:04 Edit Date : Oct 17 2024 12:13:54 Diagnosis: SINUS BRADYCARDIA INFERIOR MYOCARDIAL INFARCTION , AGE UNDETERMINED ABNORMAL ECG Confirmed by MD ARRIETA QARAB ([id number]) on 10/17/2024 12:13:52 PM Test Reason : Location : [facility] : [facility] Overread By : MD ARRIETA QARAB Edited By : MD ARRIETA QARAB Referred By : , Acquired by : Flores mayo [facility] HISTORY PHYSICALon HISTORY PHYSICAL HNO ID: [id number] Author: ANGI MARTIN APRN.ADVANCED CLINICAL SPECIALIST Service: ? 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 Denies CP, palpitations, sob, new or worsening cardiac symptoms Scan on 10/13/2024 10:27 AM by Provider, External, PA-C: Consultation - Cardiology HTN (hypertension) Assessment: controlled on rx Last 14 BP Last 14 Encounter BP Readings: Date: BP: 10/13/2024 126/56 09/28/2024 126/63 09/19/2024 116/54 08/17/2024 135/66 08/03/2024 104/50 12/14/2023 132/52 01/20/2023 110/60 09/19/2022 122/58 09/02/2022 128/58 07/14/2022 122/70 04/29/2022 153/81[pt stated she did not take meds yet today[ 03/07/2022 124/60 02/27/2022 130/62 01/27/2022 120/48 Hyperlipidemia Assessment: c/w statin Bilateral carotid artery stenosis Assessment: 12/2023 Carotid US in C/E revealed <50% bilaterally Report on 01/05/2024 2:39 PM EDT: Vascular US carotid artery duplex bilateral Chronic obstructive lung disease (HCC) Assessment: controlled with rx as needed, no spirometry on file, lungs CTA, pulse ox 97% on RA, recent low dose lung screening CT below View External Imaging - CT Scan [ID [id number]] Obstructive sleep apnea Assessment: non-compliant with CPAP Former smoker Assessment: 1ppd/50 years Gastroesophageal reflux disease without esophagitis Assessment: controlled on rx Stage 3 chronic kidney disease (HCC) Assessment: hx MELINDA, following CABG that required dialysis short term Creatinine Date Value Ref Range Status 10/13/2024 1.07 (H) 0.58 - 0.96 mg/dL Final 01/20/2023 1.08 (H) 0.58 - 0.96 mg/dL Final 06/13/2022 0.90 0.58 - 0.96 mg/dL Final 01/27/2022 1.03 (H) 0.58 - 0.96 mg/dL Final Hypothyroid Assessment: stable on rx Osteoporosis Assessment: pending to receive Reclast Depression Assessment: stable on rx per pt Generalized anxiety disorder Assessment: stable on rx per pt VHD (valvular heart disease) Assessment: echo 01/12/2024 in C/E, AVR 1-2+, Mild stenosis of the aortic valve. AV mean gradient is 9 mmHg. AV area by continuity VTI is 1.9 cm2. Following cardiology Hyperkalemia Assessment: remote finding on pre-op labs, will recheck, UPDATE, pre-op potassium recheck normal Potassium Date Value Ref Range Status 10/21/2024 4.5 3.7 - 5.1 mmol/L Final 10/13/2024 5.4 (H) 3.7 - 5.1 mmol/L Final 01/20/2023 4.6 3.7 - 5.1 mmol/L Final Anemia Assessment: Hemoglobin (g/dL) Date Value 10/13/2024 11.0 05/31/2013 13.1 Hematocrit (%) Date Value 10/13/2024 33.4 05/31/2013 38.0 WBC (k/uL) Date Value 10/13/2024 9.27 05/31/2013 10.65 ANESTHESIA FINDINGS: Intubation History: No history of difficult intubation Significant Anesthesia Considerations: none Airway History: No history of difficult airway Leonard Activity Status Index: METS: Climb a flight of stairs or walk up a hill (5.50 METs) DASI Score: 5.5 Patient denies any chest pain or undue shortness of breath with the above physical activity. Clinical Frailty Scale: 4. Apparently vulnerable STOP-Bang Score: Snores loudly Has been observed to stop breathing or choking/gasping during sleep Has or is being treated for high blood pressure Patient over 50 years old Denies feeling tired, fatigued, or sleepy during the daytime BMI less than or equal to 35 kg/m2 Does not have a large neck Non-male patient STOP-Bang Score: 4 [id number] Score: Age: 65-74 Sex: female CHF history: No Hypertension history: Yes Stroke/TIA/thromboemboli sm history: No Vascular disease history: Yes Diabetes history: Yes [id number] Score: 5 ARISCAT Score: Age: 51-80 Preoperative SpO2: >=96% Respiratory infection in the last month: No Preoperative anemia: No Surgical incision: upper abdominal Duration of surgery: 2-3 hrs Emergency procedure: No ARISCAT Score: 34 I - PHYSICAL EVALUATION AIRWAY Patient intubated: No. Tracheostomy tube not present Mallampati: III. TM distance: >3 FB. Neck ROM: full ROM without neurological symptoms. Mouth opening: adequate. Short neck: no. Thick neck: no Brody present: no Lip Bite Test: I Microretrognathia/Micron agthia/Recessed Chin: No DENTAL Dental findings: teeth intact. Additio (more content not included)... Normal [facility] CNOVon 09-28-2024 CNOV Office Visit (GENSWS ) -------- ZORAIDA PIRES ([id number]) 1950 F Date Time Provider Department 09/28/24 3:45 PM ADRIEL SOLIS GENSWS During your visit today, we recorded the following information about you: Pulse Respiration Blood pressure Weight 70/minute 14/minute 126/63 58.9 kg Maria Esther Valdez RN 10/14/2024 8:32 AM Signed REVIEW OF SYSTEMS: General: The patient denies fatigue, denies weight loss, denies weight gain, denies feeling hot, and denies feelings of cold. Eyes: The patient denies glaucoma, denies eye injury/surgery, wears glasses or contacts. Ear/Nose/Throat: The patient notes allergies, denies hayfever, denies ear infections, and denies bloody noses. Cardiovascular: The patient denies chest pain, notes heart disease, notes high blood pressure,notes cardiac stent, notes prior heart attack, denies irregular heart beat, denies high cholesterol, notes poor circulation, denies heart failure, other cardiac issues, denies claudication, denies cold feet, notes peripheral arterial stent. Respiratory: The patient denies tuberculosis, denies pneumonia, denies frequent cough, denies pulmonary embolism, notes shortness of breath, and denies coughing up blood. Gastrointestinal: The patient denies difficulty swallowing, notes acid reflux, denies ulcers, denies vomiting, denies jaundice/hepatitis, denies gallbladder problems, denies black or tarry stools, denies hemorrhoids, denies bleeding from rectum, denies diverticulitis, notes constipation, denies diarrhea, denies loss of stool control, and notes hernias. Kidney/Bladder: The patient denies kidney stones, denies urine infections, and denies bloody urine. Skin: The patient denies a history of skin cancer, denies bleeding/changing moles, and denies a history of skin rash. Neurologic: The patient denies a history of epilepsy/convulsions, denies headaches, denies head/spinal injuries, and denies stroke/TIA. Psychiatric: The patient denies psychiatric medications, denies depression, and denies voices, denies substance abuse. Endocrine: The patient notes thyroid disorders, notes diabetes, and denies hormonal problems. Hematologic: The patient notes a history of bruising, denies bleeding, and denies anemia, denies blood clots. Infections: The patient denies a history of measles and mumps, denies rheumatic fever, and denies sexually transmitted diseases. Musculoskeletal: The patient notes back pain/injury, notes back problems, denies sciatica, denies knee/foot trouble, denies arthritis, or denies gout. When was patient's last Mammogram screening? 2024 Last Colonoscopy: 4to 5 years MIRIAM Hardin Richard T, MD 09/28/2024 4:38 PM Signed We discussed your upcoming hernia repair surgery: - Your surgery is scheduled for November 01. Please plan accordingly. - You may continue taking your aspirin and all other regular medications. You can take them with a sip of water the morning of surgery. - Your insulin pump will need to be adjusted to basal settings during surgery. Please schedule an appointment with your timber girdler to make these adjustments once the surgery date approaches. - Avoid heavy lifting for 8 weeks after surgery to allow for proper healing. We discussed your blood sugar management: - Continue checking your blood sugar 4 times a day. - Your continuous insulin pump will automatically adjust based on your blood sugar readings. No manual adjustments are needed. We discussed your Synthroid: - Continue taking Synthroid on an empty stomach as prescribed. We discussed your colonoscopy: - A colonoscopy can be scheduled at least 8 weeks after your hernia repair surgery. This will allow sufficient time for recovery and to avoid discomfort during bowel preparation. If you have any additional questions or concerns, please contact our office. Do take half of the golytely jug two nights before surgery to clean out your colon, repeat the night before if no results Adriel Solis MD 10/14/2024 8:32 AM Signed HISTORY AND PHYSICAL Zoraida Pires 1950 REFERRING PHYSICIAN: Sandy Braswell MD CHIEF COMPLAINT: Consult (Feels she needs hernia surgery, was recommended prior but had not quit smoking) HPI: The patient is a 73 year old female with a complaint of incisional hernias. Meeta is a 73-year-old female with a history of DM, hypothyroidism, and recent cardiac surgery, presenting for preoperative evaluation and management of her insulin pump prior to an upcoming hernia repair surgery. Meeta has been using a continuous insulin pump for glycemic control, which has resulted in a recent HbA1c of 6.8. She checks her blood glucose levels four times daily. She is unsure how to adjust the pump settings and will need guidance from her timber girdler to reduce it to basal rate before surgery. She inquires about (more content not included)... Normal [facility] Cardiology Visit Reporton Cardiology Visit Report [facility] [address] [place] [address] OFFICE VISIT Date of Service: 09/22/24 MR#: [id number] Acct: [id number] Name: ZORAIDA PIRES Rep #: [id number] : 1950 Provider: LAURA castellon Age/Sex: 73/F Location: [facility] Status: Signed HPI HPI History of Present Illness Details: This is a 73-year-old female who presents today for cardiovascular office visit. She has a history of coronary artery disease with a two-vessel coronary artery bypass graft done at [facility] in December of 2023 with a WALTERS to the LAD and a vein graft to the obtuse marginal. The right posterior lateral ventricular branch was not bypassed as it was deemed too calcified and small. She has a history of diabetes???type I, peripheral arterial disease, hypertension, hyperlipidemia, and chronic kidney disorder. From a cardiac standpoint, the patient is doing well. She presents to the office in a wheel chair, and does use a walker to help with ambulation due to back pain. She denies any palpitations, chest pain, pressure or heaviness. She denies SOB, Orthopnea, and PND. She does not have bleeding issues; no blood in urine, stool, or nosebleeds. She denies any decrease in energy level, myalgias, or claudication. She does not have edema, or sudden weight gain. She denies lightheadedness, dizziness, syncopal or near syncopal episodes, and headaches. Intake Vital Signs 06/13/24 11:31 09/22/24 07:33 Height 4 ft 10 in 5 ft 10 in Weight: 128 lb BMI 18.3 BP 100/61 Blood Pressure Location Lt brachial Position Sitting Respiration 18 Pulse 58 L Pulse Source Monitor Pulse Oximetry (%) 98 Intake Visit Reasons: 6 M FU Tele Tech Required: No Is patient in pain?: No Allergies No Known Allergies Allergy (Verified 09/22/24 13:38) Ejection fraction %: 60 Have you fallen in the past year?: No Nurse's Note: unable to confirm medications, does not know names, but states nothing has changed [facility] Medical History (Reviewed 09/22/24 @ 13:38 by Janessa Lu CAPSULE MACHINE OPERATOR, CAPSULE MACHINE OPERATOR-C) History of tobacco use Other bursitis of knee, left knee Tobacco use disorder, continuous Encounter for screening for malignant neoplasm of lung Chronic insomnia Abdominal wall lump DDD (degenerative disc disease) PVD (peripheral vascular disease) Sleep apnea Dyspnea on exertion Mixed hyperlipidemia PAD (peripheral artery disease) History of left heart catheterization (LHC) ( 04/11/15) GERD (gastroesophageal reflux disease) CKD (chronic kidney disease) stage 3, GFR 30-59 ml/min Essential hypertension Presence of stent in coronary artery ( 2004) Atherosclerotic heart disease of [place] coronary artery without angina pectoris Encounter for vitamin deficiency screening Diabetic retinopathy associated with type 1 diabetes mellitus Polyneuropathy due to type 1 diabetes mellitus Appendicitis Proteinuria Lower back pain Heart attack Surgical History History of laparoscopic appendectomy Presence of coronary angioplasty implant and graft H/O angioplasty Hx of tubal ligation Hx of section Family History Other Anxiety Arthritis Breast cancer COPD (chronic obstructive pulmonary disease) CVA (cerebral vascular accident) Cancer Cardiovascular disease Depression Diabetes Hyperlipidemia Hypertension Kidney disease Myocardial infarction Osteoporosis Respiratory disease Thyroid disorder Social History Smoking Status: Former smoker (Quit 01/22/24 ) quit date: 01/21/24 Tobacco: How many years used: 49 alcohol intake: never substance use type: does not use what type of physical activity do you participate in: none ROS Const Const: Negative for fatigue, weakness, headache(s) or frequent falls Eyes Eyes: Negative for blurry vision ENT ENT: Negative for headache(s), dizziness or Nosebleed/epistaxis Cardio Chest Pain: No Palpitations: No Edema: None Muscle aches with walking: None Resp Respiratory: Negative for SOB with activity, SOB at rest or SOB orthopnea SOB lying down GI GI: Negative nausea, vomiting, heartburn, bright, red blood in stools or black,tarry stools : Negative for hematuria Neuro Neuro: Negative for dizziness, lightheadedness, near syncope, syncope, frequent falls, headache(s), weakness or blurry vision Endo Endo: Negative for fatigue Cardiology Exam Const Appearance: cooperative and no acute distress Orientation: alert and oriented x3 Head Head: normal to inspection Ears: hearing grossly normal bilaterally Nose: external nose normal Face and Sinus: face symmetric Eyes General: appearance norm (more content not included)... [facility] -------- ZORAIDA PIRES ([id number]) 1950 F Date Time Provider Department 09/19/24 1:40 PM [facility] During your visit today, we recorded the following information about you: Pulse Respiration Blood pressure 60/minute 16/minute 116/54 Flaca Fischer APRN.ADVANCED CLINICAL SPECIALIST 09/19/2024 7:03 PM Signed This is a 73 year old female who presents today with: Patient presents with: Discussion: Discuss treatments for osteoporsis HISTORY OF PRESENT ILLNESS: Zoraida Flores Hectorstephy is a 73 year old female. Patient presents with: Discussion: Discuss treatments for osteoporsis Had a recent dexa scan that showed improvement in the lumbar back, but worsening at other locations. Recommended pharmacologic treatment. She recently had a CABG with a complicated recover, including kidney injury requiring dialysis. 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 Laser Treatments Both Eyes (Ongoing) PERC TRANSL COR ANGIO Percutaneous Transluminal Coronary Angio Status POST-CATARACT LASER SURGERY Right 11/11/2023 Dr. Christensen REMV CATARACT EXTRACAP,INSERT LENS Bilateral RMVL LENS MATERIAL PHACOFRAGMENTATION ASPIR os 01/09/2011 Cataract Extraction STENT PLACEMENT 06/01/1995 with HI VITRECTOMY MECHANICAL PARS PLANA os 01/09/2011 [place] Vitrectomy WRIST SPLINT carpal tunnel on R ALLERGIES Patient has no known allergies. MEDICATIONS Current Outpatient Medications Medication Sig gabapentin (NEURONTIN) 100 mg capsule Take 1 capsule by mouth three times a day for 30 days. lisinopril (ZESTRIL) 20 mg tablet Take 20 mg by mouth once daily. aspirin, enteric coated (ASPIRIN, ENTERIC COATED) 81 mg EC tablet Take 1 tablet by mouth once daily. carvedilol (COREG) 3.125 mg tablet Take 3.125 mg by mouth two times a day with meals. levothyroxine (SYNTHROID) 75 mcg tablet Take 1 tablet by mouth every afternoon. HYDROcodone-Acetaminophe n (NORCO) 10-325 mg per tablet Take 1 tablet by mouth every 12 hours. ZINC PICOLINATE ORAL Take 50 mg by mouth once daily. ferrous bis-glycinate chelate (IRON BISGLYCINATE CHELATE ORAL) Take 18 mg by mouth once daily. MAGNESIUM GLYCINATE ORAL Take 500 mg by mouth once daily. Ascorbic Acid (VITAMIN C) 1,000 mg tablet Take 1,000 mg by mouth once daily. Selenium 100 mcg tab Take 100 mcg by mouth once daily. cholecalciferol, vitamin D3, (VITAMIN D3 ORAL) Take 250 mcg by mouth once daily. Biotin 10,000 mcg cap Take 10,000 mcg by mouth once daily. melatonin 12 mg tab Take 12 mg by mouth daily at bedtime. vitamin b complex (B-COMPLEX) tab Take 1 tablet by mouth once daily. VITAMIN K2 100 MCG CAPSULE ubidecarenone/vitamin E mixed (COQ10 SG 100 ORAL) Take 100 mg by mouth once daily. vits A,C,E/lutein/minerals (HEALTHY EYES ORAL) Take by mouth. traZODone (DESYREL) 50 mg tablet Take 1 tablet by mouth at bedtime as needed. rosuvastatin (CRESTOR) 40 mg tablet Take 1 tablet by mouth once daily. nitroglycerin sublingual (NITROQUICK) 0.4 mg SL tablet Dissolve 1 tablet under the tongue as needed. DISSOLVE ON TONGUE FOR CHEST PAIN. IF NO PAIN RELIEF, CALL 911 citalopram (CELEXA) 40 mg tablet Take 1 tablet by mouth once daily. pantoprazole DR (PROTONIX) 40 mg tablet Take 1 tablet by mouth once daily. BD INSULIN SYRINGE ULTRA-FINE 0.3 mL 31 gauge x 5/16" once daily. insulin glargine (LANTUS U-100 INSULIN) 100 unit/mL injection Inject [address] Palumbo FIASP FLEXTOUCH U-100 INSULIN 100 unit/mL (3 mL) pen Inject as directed: small meal 5-6units; medium meal 6-7 units; large meal 8-[address] Palumbo. albuterol HFA (VENTOLIN HFA) 90 mcg/actuation inhaler Inhale 2 Puffs as instructed every 4 hours as needed for wheezing/shortness of breath. PEG 400-propylene glycol (SYSTANE ULTRA) 0.4-0.3 % ophthalmic solution Use 1 Drop in both eyes every 2 hours while awake. Insulin Syringe-Needle U-100 (ULTRA FINE INSULIN) 1 mL 30 x 1/2" syrg use 5 times a day as directed. POLYVINYL ALCOHOL (20/20 ARTIFICIAL TEARS OPHTHALMIC) Use in eyes as needed. blood sugar diagnostic test strip (more content not included)... [facility] -------- ZORAIDA PIRES ([id number]) 1950 F Date Time Provider Department 09/19/24 FLACA FISCHER During your visit today, we recorded the following information about you: Flaca Fischer APRN.ADVANCED CLINICAL SPECIALIST 09/19/2024 7:05 PM Signed Can we please sent copy of today's office notes to patient's marketing proposal specialist with question if he has any reservations re: starting fosamax. Sunday Peng LPN 09/20/2024 10:47 AM Signed OV note faxed, waiting response from Dr. Palumbo's office. JULIANA Newman Jamie, LPN 09/21/2024 1:17 PM Signed OV note faxed, waiting response from Dr. Hollis's office. Waiting for response. JULIANA Newman Jamie, LPN 09/23/2024 4:32 PM Signed Only received last office note from Nephrology. Scan on 09/23/2024 11:56 AM by Danielle Ford: [employer] [place] [facility] Flaca Fischer APRN.ADVANCED CLINICAL SPECIALIST 09/27/2024 9:59 AM Signed Can we fax message over to Dr. Tam's offce again asking if he has any reservations re: treatment with fosamax. Sunday Peng LPN 09/27/2024 11:24 AM Signed Faxed OV note with note asking the same. Sunday Peng LPN 10/04/2024 1:43 PM Signed Received response from Dr. Hollis's office via fax. "No issues". JULIANA Newman Christy, APRN.ADVANCED CLINICAL SPECIALIST 10/05/2024 5:18 PM Signed Can please let patient know that we did hear back from Dr. Hollis and he has no reservations for her starting fosamax for the osteoporosis. Please let me know if she would like to move forward with this and we can send into the pharmacy. Flaca Fischer APRN.Treva Joseph RN 10/06/2024 8:58 AM Signed Pt called and is notified of providers message and instructions. Pt states he Diabetic provider got a hold of her bone scan and gave her a couple of options, and she wanted to do the yearly infusion. She states she hasn't heard anything back. She wanted to know if provider could get a hold of Itzel Dominguez CAPSULE MACHINE OPERATOR with [facility] about that so she could get it set up. Please call and advise. MIRIAM Oleary Christy, APRN.FELA 10/07/2024 9:23 AM Signed That is fine. Can please make sure that diabetic provider at [facility] has bone scan results. Unfortunately, we don't set it up there. I would suggest that she call her provider there to inquire about it. Sunday Peng LPN 10/07/2024 3:17 PM Signed LM to return call to office. JULIANA Newman Jamie, LPN 10/14/2024 3:35 PM Signed Pt notified of the same. She states Dr. Palumbo's office called and set it up for her. She has an appt at the end of the month. Sunday Peng LPN Allergies As of Date: 09/19/2024 (No Known Allergies) Date Reviewed: 09/19/2024 Reviewed by: Sunday Peng LPN - Fully Assessed Reason for Visit: Patient Update [1234] Prescriptions as of 10/14/2024 - traZODone (DESYREL) 50 mg tablet Take 1 tablet by mouth at bedtime as needed. - gabapentin (NEURONTIN) 100 mg capsule Take 1 capsule by mouth three times a day for 30 days. - lisinopril (ZESTRIL) 20 mg tablet Take 20 mg by mouth once daily. - aspirin, enteric coated (ASPIRIN, ENTERIC COATED) 81 mg EC tablet Take 1 tablet by mouth once daily. - carvedilol (COREG) 3.125 mg tablet Take 3.125 mg by mouth two times a day with meals. - levothyroxine (SYNTHROID) 75 mcg tablet Take 1 tablet by mouth every afternoon. - HYDROcodone-Acetaminophe n (NORCO) 10-325 mg per tablet Take 1 tablet by mouth every 12 hours. - ZINC PICOLINATE ORAL Take 50 mg by mouth once daily. - ferrous bis-glycinate chelate (IRON BISGLYCINATE CHELATE ORAL) Take 18 mg by mouth once daily. - MAGNESIUM GLYCINATE ORAL Take 500 mg by mouth once daily. - Ascorbic Acid (VITAMIN C) 1,000 mg tablet Take 1,000 mg by mouth once daily. - Selenium 100 mcg tab Take 100 mcg by mouth once daily. - cholecalciferol, vitamin D3, (VITAMIN D3 ORAL) Take 250 mcg by mouth once daily. - Biotin 10,000 mcg cap Take 10,000 mcg by mouth once daily. - melatonin 12 mg tab Take 12 mg by mouth daily at bedtime. - vitamin b complex (B-COMPLEX) tab Take 1 tablet by mouth once daily. - VITAMIN K2 100 MCG CAPSULE - ubidecarenone/vitamin E mixed (COQ10 SG 100 ORAL) Take 100 mg by mouth once daily. - rosuvastatin (CRESTOR) 40 mg tablet Take 1 tablet by mouth once daily. - nitroglycerin sublingual (NITROQUICK) 0.4 mg SL tablet Dissolve 1 tablet under the tongue as needed. DISSOLVE ON TONGUE FOR CHEST PAIN. IF NO PAIN RELIEF, CALL 911 - citalopram (CELEXA) 40 mg tablet Take 1 tablet by mouth once daily. - pantoprazole DR (PROTONIX) 40 mg tablet Take 1 tablet by mouth once daily. - albuterol HFA (VENTOLIN HFA) 90 mcg/actuation inhaler Inhale 2 Puffs as instructed every 4 hours as needed for wheezing/shortness of breath. - PEG 400-propylene glycol (SYSTANE ULTRA) 0.4-0.3 % ophthalmic solution Use 1 Drop in both eyes every 2 hours while awake. - POLYVINYL ALCOHOL (2 (more content not included)... Normal [facility] Low Dose CT Lung Screeningon 09-13-[address] Lung Screening [facility] Imaging Services [address] [place] [address] Lung Screening MR#: [id number] Acct: [id number] Name: PRANAYZORAIDA CORREIA Rep #: [id number] : 1950 F 73 From: Yosi Anand MD PCP: Dr. Sandy Braswell MD Status: REG CLI Study: Low Dose CT Lung Screening Date of Exam: 09/13 Exam# [id number] Ordering Dr: Yael Joe NP CAPSULE MACHINE OPERATOR -C PROCEDURE: LOW DOSE CT LUNG SCREENING 09/13/2024 REASON FOR EXAM: LUNG CANCER SCREENING TECHNIQUE: Low Dose CT Lung screening without contrast. Coronal and Sagittal reconstruction series were provided. One or more dose reduction techniques were used (e.g., Automated exposure control, adjustment of the mA and/or kV according to patient size, use of iterative reconstruction technique). REFERENCE LINK: Augure Lung-RADS RADIATION DOSE SUMMARY: CTDlvol: 1.59 mGy DLP: 46.45 mGycm COMPARISON: 01/06/2023 FINDINGS: Note that evaluation of the vasculature, whitney, and soft tissues is limited in the absence of IV contrast. Heart/pericardium: Severe three-vessel coronary atherosclerosis and/or stents post interval sternotomy. Mild aortic and trace mitral annular calcification. Abandoned epicardial pacing leads. Aorta: Mild/moderate calcific atherosclerosis.. Pulmonary arteries: Unremarkable. Lymph nodes: Precarinal node, 10 mm short axis, previously 9 mm.. Lungs/pleura: Accessory fissure in the RIGHT lower lobe, normal variant. Similar 2 mm RIGHT middle lobe micronodule (series 2, image 107). Similar 3 mm subpleural micronodule in the RIGHT upper lobe (image 64). Few additional sub 3 mm micronodules unchanged. Airways: Unremarkable. Chest wall: Interval sternotomy as above. Sternal and manubrial margins remain ununited. Nonspecific mild surrounding subcutaneous stranding mostly within the presternal and subxiphoid regions, possible scarring. Upper abdomen: Grossly unremarkable. Musculoskeletal: Suspected demineralization. Multilevel spondylosis.. CT/Low Dose CT Lung Screening IMPRESSION: 1. Lung-RADS category: 2S (negative); continue annual screening with LDCT. 2. Other clinically significant or potentially significant non-lung cancer findings: Severe three- vessel coronary atherosclerosis and/or stents post interval sternotomy with ununited sternal margins and mild adjacent soft tissue thickening. These findings may reflect scarring however correlation for superimposed infection is warranted. 3. Borderline minimal mediastinal lymphadenopathy, nonspecific and potentially reactive in the absence of known malignancy. Correlate with medical history and recommend attention on above follow-up. 4. Additional description as above. Recommendations per [employer] [place] [employer]. Lung CT Screening Reporting and Data System (Lung-RADS) v. 2021 Reading Location: [facility] CC: CAPSULE MACHINE OPERATOR-C Yael Joe; Dr. Sandy Braswell MD 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: Signed Normal [facility] Oncology Visit Reporton 08-30 Oncology Visit Report [facility] [address] [place] [address] OFFICE VISIT Date of Service: 09/13/24 1219 MR#: [id number] Acct: [id number] Name: ZORAIDA PIRES Rep #: [id number] : 1950 From: Yael Joe NP CAPSULE MACHINE OPERATOR -C Age/Sex: 73/F Location: [facility] Status: Signed HPI HPI Reviewed eligibility criteria: 73 year old F with a >20 pack year history (1/2 ppd x 49 years). Smoking Status: Former smoker (Quit 01/22/24 ) Decision Making Engaged in shared decision making visit utilizing a visual aid. Discussed the risks and benefits of lung cancer screening including the total radiation exposure, false positive rate, over diagnosis and potential need for follow-up diagnostic testing all associated with low-dose chest CT. Comorbidities PAD, T1DM, atherosclerosis, CAD, CKD ROS Const Denies anorexia, Denies fatigue, Denies headache(s), Denies poor appetite and Denies weight loss ENT Denies headache(s) Card Denies chest pain, Reports dyspnea on exertion and Denies palpitations Resp Denies cough, Reports dyspnea on exertion, Denies hemoptysis and Denies wheezing GI Reports system reviewed and no additional complaints, except as documented Musc Reports system reviewed and no additional complaints, except as documented Skin/Breast Reports system reviewed and no additional complaints, except as documented Neuro Yes system reviewed and no additional complaints, except as documented and No headache(s) Psych Reports system reviewed and no additional complaints, except as documented Endo Reports system reviewed and no additional complaints, except as documented, Denies fatigue and Denies palpitations Ankush/Lymph Reports system reviewed and no additional complaints, except as documented Aller/Immun Denies wheezing Exam Const Orientation: alert and oriented x3 HENMT Head: normocephalic and atraumatic Neck Neck: supple and no lymphadenopathy noted Resp Effort Inspection: normal respiratory effort and symmetric chest movement Auscultation: Bilateral: Clear to Auscultation Cardio Rate: regular rate Rhythm: regular rhythm Heart Sounds: S1 normal and S2 normal Psych Affect: normal affect Speech and Movement: speech and movement normal Results Results September 13, [address] Lung Screening IMPRESSION: 1. Lung-RADS category: 2S (negative); continue annual screening with LDCT. 2. Other clinically significant or potentially significant non-lung cancer findings: Severe three- vessel coronary atherosclerosis and/or stents post interval sternotomy with ununited sternal margins and mild adjacent soft tissue thickening. These findings may reflect scarring however correlation for superimposed infection is warranted. 3. Borderline minimal mediastinal lymphadenopathy, nonspecific and potentially reactive in the absence of known malignancy. Correlate with medical history and recommend attention on above follow-up. 4. Additional description as above. Intake Vital Signs 06/13/24 11:31 09/12/24 10:37 09/13/24 12:25 Height 4 ft 10 in 4 ft 10 in 5 ft 10 in Weight: 128 lb 6 oz 128 lb 6.003 oz BMI 26.8 18.3 BP 130/66 H Blood Pressure Location Lt brachial Position Sitting Respiration 16 Pulse 60 Pulse Source Monitor Temp 97.6 F L Temp Source Temporal Pulse Oximetry (%) 100 Oxygen Delivery Method room air Intake Visit Reasons: LUNG CANCER SCREENING Allergies No Known Allergies Allergy (Verified 09/13/24 12:22) Medications ???Medication ???Instructions ???Recorded ???Confirmed ???Type albuterol 90 mcg/actuation aerosol 90 mcg inhalation DAILY 03/14/22 09/13/24 History inhaler blood sugar diagnostic (Truetest 03/14/22 09/13/24 History Test Strips) hydrocodone 7.5 mg-acetaminophen 1 tab PO Q6H PRN Pain 03/14/22 History 325 mg tablet pantoprazole 40 mg tablet,delayed 40 mg PO DAILY 03/14/22 09/13/24 History release polyvinyl alcohol 1.4 % eye drops 1 drp ophthalmic (eye) BID-QID 09/13/24 History rosuvastatin 40 mg tablet 40 mg PO DAILY 03/14/22 09/13/24 H istory citalopram 40 mg tablet 40 mg PO DAILY 07/25/22 09/13/24 H istory nitroglycerin 0.4 mg sublingual 0.4 mg sublingual ONCE #25 tabs 09/13/24 Rx tablet trazodone 50 mg tablet 50 mg PO DAILY 07/13/23 09/13/24 H istory insulin syringe-needle U-100 0.3 #100 ea 07/15/23 09/13/24 Rx mL 31 gauge x 5/16" (BD Insulin Syringe Ultra-Fine) aspirin 81 mg tablet,delayed 81 mg PO QDAY #90 tabs 04/12/24 Rx release (Adult Aspirin Regimen) bupropion HCl 100 mg tablet 100 mg PO TID 04/12/24 09/13/24 Hi story gabapentin 100 mg capsule 100 mg PO TID 04/12/24 09/13/24 Hi story insulin glargine 100 unit/mL 30 unit subcut QAM 04/12/24 (more content not included)... Normal [facility] Endocrinology Visit Reporton 09-12-2024 Endocrinology Visit Report [facility] [address] [place] [address] OFFICE VISIT Date of Service: 09/12/24 MR#: [id number] Acct: [id number] Name: ZORAIDA PIRES Rep #: [id number] : 1950 Provider: LAURA pike Age/Sex: 73/F [place] [facility] Status: Signed Intake Vital Signs 06/13/24 11:31 09/12/24 10:37 09/12/24 10:45 Height 4 ft 10 in 4 ft 10 in Weight: 128 lb 6 oz BMI 26.8 BP 108/57 L Blood Pressure Location Lt brachial Position Sitting Pulse 61 Pulse Source Monitor Pulse Oximetry (%) 96 Oxygen Delivery Method room air Intake Visit Reasons: 3 M FU Chief Complaint: f/u diabetes Is patient in pain?: No Allergies No Known Allergies Allergy (Verified 09/12/24 10:43) Medications ???Medication ???Instructions ???Recorded ???Confirmed ???Type albuterol 90 mcg/actuation aerosol 90 mcg inhalation DAILY 03/14/22 09/12/24 History inhaler blood sugar diagnostic (Truetest 03/14/22 09/12/24 History Test Strips) hydrocodone 7.5 mg-acetaminophen 1 tab PO Q6H PRN Pain 03/14/22 History 325 mg tablet pantoprazole 40 mg tablet,delayed 40 mg PO DAILY 03/14/22 09/12/24 History release polyvinyl alcohol 1.4 % eye drops 1 drp ophthalmic (eye) BID-QID 09/12/24 History rosuvastatin 40 mg tablet 40 mg PO DAILY 03/14/22 09/12/24 H istory citalopram 40 mg tablet 40 mg PO DAILY 07/25/22 09/12/24 H istory nitroglycerin 0.4 mg sublingual 0.4 mg sublingual ONCE #25 tabs 09/12/24 Rx tablet trazodone 50 mg tablet 50 mg PO DAILY 07/13/23 09/12/24 H istory insulin syringe-needle U-100 0.3 #100 ea 07/15/23 09/12/24 Rx mL 31 gauge x 5/16" (BD Insulin Syringe Ultra-Fine) aspirin 81 mg tablet,delayed 81 mg PO QDAY #90 tabs 04/12/24 Rx release (Adult Aspirin Regimen) bupropion HCl 100 mg tablet 100 mg PO TID 04/12/24 09/12/24 Hi story gabapentin 100 mg capsule 100 mg PO TID 04/12/24 09/12/24 Hi story insulin glargine 100 unit/mL 30 unit subcut QAM 04/12/24 History subcutaneous solution (Lantus U-100 Insulin) umeclidinium 62.5 mcg/actuation 1 inh inhalation QDAY 04/12/24 History blister powder for inhalation (Incruse Ellipta) carvedilol 3.125 mg tablet 3.125 mg PO BID #180 tabs 05/26/24 09/12/24 Rx ascorbic acid (vitamin C) 1,000 mg 1 g PO Q6H 06/13/24 09/12/24 His tory capsule cholecalciferol (vitamin D3) 250 250 mcg PO QDAY 06/13/24 09/12/24 History mcg (10,000 unit) capsule coenzyme [id number] E 100 mg-100 cap PO 06/13/24 09/12/24 History unit capsule ferrous gluconate 325 mg (37 mg 18 mg PO QDAY 06/13/24 09/12/24 Hi story iron) tablet magnesium glycinate 100 mg (as 500 mg PO QDAY 06/13/24 09/12/24 H istory glycinate) tablet selenium 200 mcg capsule 200 mcg PO QDAY 06/13/24 09/12/24 History vit B complex 100 combo no.2 100 tab PO 06/13/24 09/12/24 History mg tablet,extended release (B-100 Complex ER) vitamin K2 100 mcg capsule 100 mcg PO QDAY 06/13/24 09/12/24 History zinc 50 mg tablet 50 mg PO QDAY 06/13/24 09/12/24 Hi story levothyroxine 75 mcg tablet 75 mcg PO QDAY #90 tabs 06/16/24 0 09/12/24 Rx insulin aspart 14 unit subcut TID #12.6 mL 09/12/24 Rx (niacinamide)(U-100) 100 unit/mL(3 mL) subcutaneous pen (Fiasp FlexTouch U-100 Insulin) blood sugar diagnostic (Accu-Chek #100 ea 08/15/24 09/12/24 Rx Guide test strips) insulin aspart (niacinamide) 75 unit subcut .continuous #30 mL 08/15/24 09/12/24 Rx (U-100) 100 unit/mL subcutaneous solution (Fiasp U-100 Insulin) lancets (Accu-Chek Softclix #100 ea 08/15/24 09/12/24 Rx Lancets) lisinopril 20 mg tablet 20 mg PO QDAY 09/12/24 09/12/24 Hi story Have you fallen in the past year?: No PFSH Medical History Other bursitis of knee, left knee Tobacco use disorder, continuous Encounter for screening for malignant neoplasm of lung Chronic insomnia Abdominal wall lump DDD (degenerative disc disease) PVD (peripheral vascular disease) Sleep apnea Dyspnea on exertion Mixed hyperlipidemia PAD (peripheral artery disease) History of left heart catheterization (LHC) ( 04/11/15) GERD (gastroesophageal reflux disease) CKD (chronic kidney disease) stage 3, GFR 30-59 ml/min Essential hypertension Presence of stent in coronary artery ( 2004) Atherosclerotic heart disease of [place] coronary artery without angina pectoris Encounter for vitamin deficiency screening Diabetic retinopathy associated with type 1 diabetes mellitus Polyneuropathy due to type 1 diabetes mellitus Appendicitis Proteinuria Lower back pain Heart attack Surgical History (Re (more content not included)... Normal [facility] Laboratory - Hematology and Cell countsOrdered By: Itzel Dominguez on 09-12-2024 HbA1c (Bld) [Mass fraction] 6.8 % High 4.2-6.3 [facility] CNPNon 09-07-2024 CNPN Telephone ([employer]) -------- ZORAIDA PIRES ([id number]) 1950 F Date Time Provider Department 09/07/24 ADRIEL SOLIS During your visit today, we recorded the following information about you: Irasema Rey LPN 09/07/2024 3:40 PM Signed Patient calling in requesting results of CT. Patient requesting a call back. JULIANA Olivo Deborah, MIRIAM 09/07/2024 3:[address] Solis 08/17/24 note: PLAN: 1. Incisional hernia, without obstruction or gangrene (K43.2) - Hernia located approximately 8 cm below the xiphoid with a secondary defect at the umbilicus; primary defect measures approximately 5x4 cm, secondary defect approximately 1 cm. - Ordered repeat CT scan to assess for potential additional hernias and evaluate current size of known defects. - Plan for laparoscopic repair with mesh placement; two smaller pieces of mesh likely required due to separation of defects. - Will obtain cardiology and nephrology records to ensure patient is medically optimized for surgery. Do you want patient to schedule surgery? Rosaura Us, MIRIAM 09/09/2024 8:01 AM Signed Adriel Solis MD You; Irasema Rey LPN; [facility] General Surgery Pool; Sunday Del Real13 hours ago (6:51 PM) She had a very complicated course after her bypass surgery. Her note from cardiology was an older note that did not make any comments about surgical risk and recommendations. I would like us to get an updated note from cardiology. I understand she is seeing nephrology and would like to see their note. Further, her blood glucose levels are poorly controlled and she was going to be starting an insulin pump. I would like this information and to know that her blood glucose levels are improved. I would plan to have her follow-up in my office once we have the above information and not just schedule her currently. Thanks-Rosaura Vogel RN 09/23/2024 11:43 AM Addendum Spoke with patient Meeta to obtain the names of her providers. Cardiology-DR Mira Wood- [place] [facility] [phone]- spoke with that office Patient last seen April of 2024 Their office is going to contact Meeta to be seen because she is due for her 6 month follow up. Provided the fax number for [place] to have the office note faxed after she is seen. Appointment is coming up next week Records have been received form [facility] Nephrology- Dr Jose Alfredo Hollis- [place]/ [place] [phone] Patient last seen 09/08/24 Spoke with that office they will fax note for review. Records received from 09/08/24 appointment- currently at [facility] Endocrinology- Dr Angel Dominguez [facility]- [place], [place] [phone] Patient has appt to be seen there on 09/12/24 Asked the patient and Beni at that office to have note faxed here to Dr Solis for review for review Records received from 09/12/24 appointment- currently at [facility] Rosaura Us RN 09/23/2024 11:45 AM Signed All records received below have been received and scanned under scanned documents on Patient chart. Records also placed on Dr Solis's [place] office desk for review. Message sent to inform Dr Solis. Allergies As of Date: 09/07/2024 (No Known Allergies) Date Reviewed: 08/17/2024 Reviewed by: Yessi Hodge MA - Fully Assessed Prescriptions as of 09/23/2024 - gabapentin (NEURONTIN) 100 mg capsule Take 1 capsule by mouth three times a day for 30 days. - lisinopril (ZESTRIL) 20 mg tablet Take 20 mg by mouth once daily. - aspirin, enteric coated (ASPIRIN, ENTERIC COATED) 81 mg EC tablet Take 1 tablet by mouth once daily. - carvedilol (COREG) 3.125 mg tablet Take 3.125 mg by mouth two times a day with meals. - levothyroxine (SYNTHROID) 75 mcg tablet Take 1 tablet by mouth every afternoon. - HYDROcodone-Acetaminophe n (NORCO) 10-325 mg per tablet Take 1 tablet by mouth every 12 hours. - ZINC PICOLINATE ORAL Take 50 mg by mouth once daily. - ferrous bis-glycinate chelate (IRON BISGLYCINATE CHELATE ORAL) Take 18 mg by mouth once daily. - MAGNESIUM GLYCINATE ORAL Take 500 mg by mouth once daily. - Ascorbic Acid (VITAMIN C) 1,000 mg tablet Take 1,000 mg by mouth once daily. - Selenium 100 mcg tab Take 100 mcg by mouth once daily. - cholecalciferol, vitamin D3, (VITAMIN D3 ORAL) Take 250 mcg by mouth once daily. - Biotin 10,000 mcg cap Take 10,000 mcg by mouth once daily. - melatonin 12 mg tab Take 12 mg by mouth daily at bedtime. - vitamin b complex (B-COMPLEX) tab Take 1 tablet by mouth once daily. - VITAMIN K2 100 MCG CAPSULE - ubidecarenone/vitamin E mixed (COQ10 SG 100 ORAL) Take 100 mg by mouth once daily. - vits A,C,E/lutein/minerals (HEALTHY EYES ORAL) Take by mouth. - traZODone (DESYREL) 50 mg tablet Take 1 tablet by mouth at bedtime as needed. - rosuvastat (more content not included)... Normal [facility] Bone density reportOrdered B y: Jaylan Ashford on 09-01-2024 Study report Skeletal system DXA [facility] Imaging Services [address] [place] [address] Dexa Bone Density Study MR#: [id number] Acct: [id number] Name: ZORAIDA PIRES Rep #: [id number] : 1950 F 73 From: Charly Ashford MD PCP: Dr. Sandy Braswell MD Status: REG C LI Study:Dexa Bone Density Study Date of Exam: 08/31/24 Exam# [id number] Ordering Dr: Michael Braswell MD PROCEDURE: DEXA BONE DENSITY STUDY 08/31/2024 REASON FOR EXAM: F, age 73 y/o . Postmenopausal. TECHNIQUE: DXA scan of the lumbar spine and both hips, using make and model. REFERENCE LINKS: ISCD Adult Positions COMPARISON: Comparison is made with prior study dated September 12, 2008. FINDINGS: BMD and T-SCORES Lumbar spine: 1.418 g/cm2, T-Score 4.0 L1 through L4 Change from prior: Improvement of 38.3% Left femoral neck: 0.484 g/cm2, T-Score -3.2 Femoral neck comparison data not recommended for monitoring change. Left total hip: 0.672 g/cm2, T-Score -2 point Change from prior: Worsening of 16.2% Right femoral neck: 0.514 g/cm2, T-Score -3.0 Femoral neck comparison data not recommended for monitoring change. Right total hip: 0.704 g/cm2, T-Score -2.0 Change from prior: Worsening of 12% Fracture Risk Calculation: FRAX (10-year Fracture Risk) Score: FRAX scores should never be reported in a patient with osteoporosis on DEXA or for any patient that is on bone medication. The patient doesmeet the pharmacological treatment recommendations for prevention of osteoporosis BD/Dexa Bone Density Study IMPRESSION: OSTEOPOROSIS. Recommend follow-up as clinically warranted. Reading Location: [facility] CC: Dr. Sandy Braswell MD ~ 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: Signed [facility] El 09-01-2024 CNPN Telephone ([facility]) -------- ZORAIDA PIRES ([id number]) 1950 F Date Time Provider Department 09/01/24 SANDY BRASWELL During your visit today, we recorded the following information about you: Nina Simons LPN 09/01/2024 1:49 PM Signed BMD results from [facility]: Scan on 09/01/2024 10:58 AM by Provider, ROBY RamirezC: Bone Density Nina Simons LPN 09/02/2024 11:43 AM Signed Scan on 09/02/2024 8:02 AM by Provider, ROBY RamirezC: Mammography Sandy Braswell MD 09/02/2024 1:08 PM Signed Mammogram is ok. Bone density shows osteoporosis. Would recommend coming in to discuss options of tx. Abisai Keenan, RN 09/02/2024 1:26 PM Signed Phoned patient and given provider's message below with verbalized understanding. Patient agreeable and scheduled appt with Certified Physical Therapist Assistant. Allergies As of Date: 09/01/2024 (No Known Allergies) Date Reviewed: 08/17/2024 Reviewed by: Yessi Hodge MA - Fully Assessed Reason for Visit: Results [95] Prescriptions as of 09/02/2024 - gabapentin (NEURONTIN) 100 mg capsule Take 1 capsule by mouth three times a day for 30 days. - lisinopril (ZESTRIL) 20 mg tablet Take 20 mg by mouth once daily. - aspirin, enteric coated (ASPIRIN, ENTERIC COATED) 81 mg EC tablet Take 1 tablet by mouth once daily. - carvedilol (COREG) 3.125 mg tablet Take 3.125 mg by mouth two times a day with meals. - levothyroxine (SYNTHROID) 75 mcg tablet Take 1 tablet by mouth every afternoon. - HYDROcodone-Acetaminophe n (NORCO) 10-325 mg per tablet Take 1 tablet by mouth every 12 hours. - ZINC PICOLINATE ORAL Take 50 mg by mouth once daily. - ferrous bis-glycinate chelate (IRON BISGLYCINATE CHELATE ORAL) Take 18 mg by mouth once daily. - MAGNESIUM GLYCINATE ORAL Take 500 mg by mouth once daily. - Ascorbic Acid (VITAMIN C) 1,000 mg tablet Take 1,000 mg by mouth once daily. - Selenium 100 mcg tab Take 100 mcg by mouth once daily. - cholecalciferol, vitamin D3, (VITAMIN D3 ORAL) Take 250 mcg by mouth once daily. - Biotin 10,000 mcg cap Take 10,000 mcg by mouth once daily. - melatonin 12 mg tab Take 12 mg by mouth daily at bedtime. - vitamin b complex (B-COMPLEX) tab Take 1 tablet by mouth once daily. - VITAMIN K2 100 MCG CAPSULE - ubidecarenone/vitamin E mixed (COQ10 SG 100 ORAL) Take 100 mg by mouth once daily. - vits A,C,E/lutein/minerals (HEALTHY EYES ORAL) Take by mouth. - traZODone (DESYREL) 50 mg tablet Take 1 tablet by mouth at bedtime as needed. - rosuvastatin (CRESTOR) 40 mg tablet Take 1 tablet by mouth once daily. - nitroglycerin sublingual (NITROQUICK) 0.4 mg SL tablet Dissolve 1 tablet under the tongue as needed. DISSOLVE ON TONGUE FOR CHEST PAIN. IF NO PAIN RELIEF, CALL 911 - citalopram (CELEXA) 40 mg tablet Take 1 tablet by mouth once daily. - pantoprazole DR (PROTONIX) 40 mg tablet Take 1 tablet by mouth once daily. - BD INSULIN SYRINGE ULTRA-FINE 0.3 mL 31 gauge x 5/16" once daily. - insulin glargine (LANTUS U-100 INSULIN) 100 unit/mL injection Inject [address] Palumbo - FIASP FLEXTOUCH U-100 INSULIN 100 unit/mL (3 mL) pen Inject as directed: small meal 5-6units; medium meal 6-7 units; large meal 8-[address] Palumbo. - albuterol HFA (VENTOLIN HFA) 90 mcg/actuation inhaler Inhale 2 Puffs as instructed every 4 hours as needed for wheezing/shortness of breath. - PEG 400-propylene glycol (SYSTANE ULTRA) 0.4-0.3 % ophthalmic solution Use 1 Drop in both eyes every 2 hours while awake. - Insulin Syringe-Needle U-100 (ULTRA FINE INSULIN) 1 mL 30 x 1/2" syrg use 5 times a day as directed. - POLYVINYL ALCOHOL (20/20 ARTIFICIAL TEARS OPHTHALMIC) Use in eyes as needed. 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 os bid and pink cap is qid, not sure of med names, pt didn't bring bottles Problem List As Of Date 09/01/2024 Noted Resolved Disturbance of skin sensation [R20.9] 06/29/2003 09/19/2022 Special screening for malignant neoplasms, colo*06/16/2007 05/31/2012 GASTRITIS/DUODEN NOS W/O HEMORRH [K29.70, K29.9*09/23/2007 Blood in stool [K92.1] 09/23/2007 09/19/2022 Hyperlipidemia [E78.5] 07/04/2010 Hypothyroid [E03.9] 07/04/2010 HTN (hypertension) [I10] 07/04/2010 Reflux [IRC9222] 07/04/2010 09/19/2022 Depression [F32.A] 07/04/2010 Status post coronary artery stent placement [Z9*07/04/2010 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*10/23/2010 05/31/2012 Class: Chronic Routine gynecological examination [Z01. (more content not included)... Normal [facility] Anion gap in Serum or Plasma Ordered By: Sandy Braswell on 08-31-2024 Anion gap [Moles/Vol] 8 mmol/L 5-15 [facility] BUN/creatinine ratioOrdered By: Sandy Braswell on 08-31-2024 Urea nitrogen/Creatinine [Mass ratio] 23.5 mg/mg High 10-20 [facility] Carbon dioxide, total [Moles /volume] in Central venous bloodOrdered By: Sandy Braswell on 08-31-2024 CO2 [Moles/Vol] 23.4 mmol/L 21.0-32.0 [facility] Chloride assayOrdered By: Emily Braswell on 08-31-2024 Chloride [Moles/Vol] 105 mmol/L 98-108 [facility] Creatinine Unsp time (U) [Ma ss/Vol]Ordered By: Sandy Braswell on 08-31-2024 Creatinine (U) [Mass/Vol] 80.40 mg/dL 28.00-217.00 [facility] Dexa Bone Density Studyon Dexa Bone Density Study [facility] Imaging Services [address] [place] [address] [id number] Dexa Bone Density Study MR#: [id number] Acct: [id number] Name: ZORAIDA PIRES Rep #: [id number] : 1950 F 73 From: Jaylan aleman MD PCP: Dr. Sandy Braswell MD Status: REG CLI Study: Dexa Bone Density Study Date of Exam: 08/31/24 Exam# [id number] Ordering Dr: Sandy Braswell MD PROCEDURE: DEXA BONE DENSITY STUDY 08/31/2024 REASON FOR EXAM: F, age 73 y/o . Postmenopausal. TECHNIQUE: DXA scan of the lumbar spine and both hips, using make and model. REFERENCE LINKS: ISCD Adult Positions COMPARISON: Comparison is made with prior study dated September 12, 2008. FINDINGS: BMD and T-SCORES Lumbar spine: 1.418 g/cm2, T-Score 4.0 L1 through L4 Change from prior: Improvement of 38.3% Left femoral neck: 0.484 g/cm2, T-Score -3.2 Femoral neck comparison data not recommended for monitoring change. Left total hip: 0.672 g/cm2, T-Score -2 point Change from prior: Worsening of 16.2% Right femoral neck: 0.514 g/cm2, T-Score -3.0 Femoral neck comparison data not recommended for monitoring change. Right total hip: 0.704 g/cm2, T-Score -2.0 Change from prior: Worsening of 12% Fracture Risk Calculation: FRAX (10-year Fracture Risk) Score: FRAX scores should never be reported in a patient with osteoporosis on DEXA or for any patient that is on bone medication. The patient doesmeet the pharmacological treatment recommendations for prevention of osteoporosis BD/Dexa Bone Density Study IMPRESSION: OSTEOPOROSIS. Recommend follow-up as clinically warranted. Reading Location: [place] [address] CC: Dr. Sandy Braswell MD 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: Signed Normal [facility] GFR/1.73 sq M.predicted vane g non-blacks MDRD (S/P/Bld) [Vol rate/Area]Ordered By: Sandy Braswell on 08-31-2024 Estimated GFR (MDRD) Non-Af Amer 57 Low >60 [facility] Comment on above: mL/min/1.73m2 CKD-EP I Creatinine Equation (2020) Glomerular filtration rate ( GFR) estimation/1.73 sq m using serum, plasma, or whole bOrdered By: Sandy Braswell on 08-31-2024 GFR/1.73 sq M.predicted among non-blacks MDRD (S/P/Bld) [Vol rate/Area] 57 mL/min/{1.73_m2} Low >60 [facility] Comment on above: mL/min/1.73m2 CKD-EP I Creatinine Equation (2020) Potassium (Unsp spec) [Mass/ Vol]Ordered By: Sandy Braswell on 08-31-2024 Potassium [Moles/Vol] 5.3 mmol/L High 3.3-5.1 [facility] Potassium measurement (mass/ volume)Ordered By: Sandy Braswell on 08-31-2024 Potassium (Unsp spec) [Mass/Vol] 5.3 mmol/L High 3.3-5.1 [facility] Protein+Creatinine Ratio,Uri neon 08-31-2024 PROT:CRE RATIO 123 mg/g CRE Normal 0-200 [facility] Comment on above: Performed By: #### L 500.3600, L501.0900 ####[facility] [address] [place], [address] Protein (U) [Mass/Vol] 9.9 mg/dL Normal 0.0-12.0 [facility] Comment on above: Performed By: #### L 500.3600, L501.0900 ####[facility] [address] [place], [address] UR CREAT 80.40 mg/dL Normal 28.00-217.00 [facility] Comment on above: Performed By: #### L 500.3600, L501.0900 ####[facility] [address] [place], [address] Protein/Creatinine (U) [Mass ratio]Ordered By: Sandy Braswell on 08-31-2024 Urine Protein/Creatinine Ratio 123 mg/g CRE 0-200 [facility] Random urine creatinine chapincito urement (mass/volume)Ordered By: Sandy Braswell on 08-31-2024 Creatinine Unsp time (U) [Mass/Vol] 80.40 mg/dL 28.00-217.00 [facility] Renal Profileon 08-31-2024 Albumin [Mass/Vol] 4.0 g/dL Normal 3.4-4.8 [facility] Comment on above: Performed By: #### L 500.3600, L501.0900 ####[facility] [address] [place], [address] BUN/CRE 23.5 RATIO High 10-20 [facility] Comment on above: Performed By: #### L 500.3600, L501.0900 ####[facility] [address] [place], [address] Calcium [Mass/Vol] 9.5 mg/dL Normal 7.6-11.0 [facility] Comment on above: Performed By: #### L 500.3600, L501.0900 ####[facility] [address] [place], [address] Chloride [Moles/Vol] 105 mmol/L Normal 98-108 [facility] Comment on above: Performed By: #### L 500.3600, L501.0900 ####[facility] [address] [place], [address] CO2 [Moles/Vol] 23.4 mmol/L Normal 21.0-32.0 [facility] Comment on above: Performed By: #### L 500.3600, L501.0900 ####[facility] [address] [place], [address] Creatinine [Mass/Vol] 1.05 mg/dL Normal 0.70-1.20 [facility] Comment on above: Performed By: #### L 500.3600, L501.0900 ####[facility] [address] [place], [address] GAP 8 Normal 5-15 [facility] Comment on above: Performed By: #### L 500.3600, L501.0900 ####[facility] [address] [place], [address] GFR/1.73 sq M.predicted among non-blacks MDRD (S/P/Bld) [Vol rate/Area] 57 mL/min/{1.73_m2} Low >60 [facility] Comment on above: Result Comment: mL/m in/1.73m2 CKD-EPI Creatinine Equation (2020) Performed By: #### L 500.3600, L501.0900 ####[facility] [address] [place], [address] Glucose [Mass/Vol] 245 mg/dL High 70-99 [facility] Comment on above: Performed By: #### L 500.3600, L501.0900 ####[facility] [address] [place], [address] Phosphate [Mass/Vol] 4.0 mg/dL Normal 2.7-4.5 [facility] Comment on above: Performed By: #### L 500.3600, L501.0900 ####[facility] [address] [place], [address] Potassium [Moles/Vol] 5.3 mmol/L High 3.3-5.1 [facility] Comment on above: Performed By: #### L 500.3600, L501.0900 ####[facility] [address] [place], [address] Sodium [Moles/Vol] 137 mmol/L Normal 133-145 [facility] Comment on above: Performed By: #### L 500.3600, L501.0900 ####[facility] [address] [place], [address] Urea nitrogen [Mass/Vol] 25 mg/dL High 4-19 [facility] Comment on above: Performed By: #### L 500.3600, L501.0900 ####[facility] [address] [place], [address] SCRN MAMM (CAD)W/REDDY BILATo n 08-31-2024 SCRN MAMM (CAD)W/REDDY BILAT [facility] Imaging Services [address] [place] [address] SCRN MAMM (CAD)W/REDDY BILAT MR#: [id number] Acct: [id number] Name: ZORAIDA PIRES Rep #: [id number] : 1950 F 73 From: Jaylan aleman MD PCP: Dr. Sandy Braswell MD Status: DEP I Study: SCRN MAMM (CAD)W/REDDY BILAT Date of Exam: 07/26 Exam# [id number] Ordering Dr: Sandy Braswell MD EXAM: SCRN MAMM (CAD)W/REDDY BILAT DATE: 08/31/2024 CLINICAL HISTORY: F, Age 73 y/o , SCREENING Mother with breast cancer. Prior left breast biopsy. BREAST CANCER RISK ASSESSMENT: Not assessed. TECHNIQUE: Bilateral screening digital breast tomosynthesis with 2D and 3D images. Computer aided detection. COMPARISON: Prior exam(s) dated prior outside examination dated November 26, 2022.. FINDINGS: TISSUE DENSITY: The breast tissue is almost entirely fatty. Bilateral Breast Mammographic Findings: No significant masses, calcifications or other abnormalities are identified. No suspicious masses, areas of developing architectural distortion, or suspicious calcifications. There has been no significant interval change. BI/SCRN MAMM (CAD)W/REDDY BILAT IMPRESSION: Right Breast: BIRADS 1 NEGATIVE. Left Breast: BIRADS 1 NEGATIVE. OVERALL FINAL ASSESSMENT: BIRADS 1 NEGATIVE RECOMMENDATION: Routine annual follow-up in 1 Year A letter with findings and recommendations will be mailed to the patient. Reading Location: [place] [address] CC: Dr. Sandy Braswell MD 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: Signed Normal [facility] Serum creatinine measurement (mass/volume)Ordered By: Sandy Braswell on 08-31-2024 Creatinine [Mass/Vol] 1.05 mg/dL 0.70-1.20 [facility] Serum glucose measurement (m ass/volume)Ordered By: Sandy Braswell on 08-31-2024 Glucose [Mass/Vol] 245 mg/dL High 70-99 [facility] Serum or plasma albumin chapincito urement (mass/volume)Ordered By: Sandy Braswell on 08-31-2024 Albumin [Mass/Vol] 4.0 g/dL 3.4-4.8 [facility] Serum or plasma calcium chapincito urement (mass/volume)Ordered By: Sandy Braswell on 08-31-2024 Calcium [Mass/Vol] 9.5 mg/dL 7.6-11.0 [facility] Serum or plasma urea nitroge n measurement (mass/volume)Ordered By: Sandy Braswell on 08-31-2024 Urea nitrogen [Mass/Vol] 25 mg/dL High 4-19 [facility] Serum phosphorus measurement Ordered By: Sandy Braswell on 08-31-2024 Phosphorus Level 4.0 mg/dL 2.7-4.5 [facility] Sodium levelOrdered By: Fareed Braswell on 08-31-2024 Sodium [Moles/Vol] 137 mmol/L 133-145 [facility] Urine protein measurement (m ass/volume)Ordered By: Sandy Braswell on 08-31-2024 Protein (U) [Mass/Vol] 9.9 mg/dL 0.0-12.0 [facility] Urine protein/creatinine mas s ratioOrdered By: Sandy Braswell on 08-31-2024 Protein/Creatinine (U) [Mass ratio] 123 mg/g CRE 0-[address] [facility] [address] ABD/PEL WO IVCONon 2024 CT ABD/PEL WO IVCON * * *Final Report* * * DATE OF EXAM: Aug 30 2024 3:34PM [facility] 0531 - CT ABD/PEL WO IVCON / PROCEDURE REASON: Incisional hernia, without obstruction or gangrene * * * * Physician Interpretation * * * * EXAMINATION: CT ABDOMEN AND PELVIS WITHOUT IV CONTRAST CLINICAL HISTORY: Incisional hernia TECHNIQUE: Non-IV contrast imaging of the abdomen and pelvis was performed using standard technique, scanning from just above the dome of the diaphragm to the symphysis pubis. Unenhanced imaging is limited for the evaluation of some intra-abdominal and pelvic pathology. MQ: CTAPWO_3 Contrast: IV: None Oral: 10 ml of Omni 240 10-25ml diluted with water CT Radiation dose: Integrated Dose-length product (DLP) for this visit = 459 mGy*cm. CT Dose Reduction Employed: Automated exposure control(AEC) and iterative recon COMPARISON: 09/26/2022 RESULT: Abdomen / Pelvis: Liver: Unremarkable. Biliary: Cholelithiasis. Spleen: No splenomegaly. Pancreas: Unremarkable. Adrenals: No mass. Kidneys: Interpolar left renal lesion appears improved relative the prior study, possible cyst but not well characterized. GI Tract: No bowel dilation. Lymph Nodes: No lymphadenopathy. Mesentery/peritoneum: No ascites. Retroperitoneum: No mass. Vasculature: Atherosclerotic changes of the aorta and major branches. No aneurysm is identified. Pelvis: No mass or ascites. Bones/Soft Tissues: small stable fat-containing umbilical hernia measuring approximately 2.1 cm at the neck. Fat-containing supraumbilical ventral hernia measures up to 2.6 cm at the neck, approximately 6.7 cm superior to the umbilicus. Lower thorax: Unremarkable. Localizer images: Unremarkable. IMPRESSION: Fat-containing supraumbilical ventral hernia. No internal enteric contents or fluid. Smaller stable fat-containing umbilical hernia. Cholelithiasis 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: SHARONA Transcribe Date/Time: Sep 03 2024 11:40A Dictated by : SHARRI GREEN MD This examination was interpreted and the report reviewed and electronically signed by: SHARRI GREEN MD on Sep 03 2024 11:42AM EST [id number] Normal [facility] CNPNon [facility] ZORAIDA PIRES ([id number]) 1950 F Date Time Provider Department 08/23/24 [facility] During your visit today, we recorded the following information about you: Yolande Quiñonez RN 08/23/2024 3:04 PM Signed Nicholas with [facility] Coding department calls to request additional diagnosis for [facility]. Nicotine/Cigarette dependence acceptable. Nicholas to use F17.210 Yolande Quiñonez RN Allergies As of Date: 08/23/2024 (No Known Allergies) Date Reviewed: 08/17/2024 Reviewed by: Yessi Hodge MA - Fully Assessed Reason for Visit: Orders [681] Prescriptions as of 08/23/2024 - gabapentin (NEURONTIN) 100 mg capsule Take 1 capsule by mouth three times a day for 30 days. - lisinopril (ZESTRIL) 20 mg tablet Take 20 mg by mouth once daily. - aspirin, enteric coated (ASPIRIN, ENTERIC COATED) 81 mg EC tablet Take 1 tablet by mouth once daily. - carvedilol (COREG) 3.125 mg tablet Take 3.125 mg by mouth two times a day with meals. - levothyroxine (SYNTHROID) 75 mcg tablet Take 1 tablet by mouth every afternoon. - HYDROcodone-Acetaminophe n (NORCO) 10-325 mg per tablet Take 1 tablet by mouth every 12 hours. - ZINC PICOLINATE ORAL Take 50 mg by mouth once daily. - ferrous bis-glycinate chelate (IRON BISGLYCINATE CHELATE ORAL) Take 18 mg by mouth once daily. - MAGNESIUM GLYCINATE ORAL Take 500 mg by mouth once daily. - Ascorbic Acid (VITAMIN C) 1,000 mg tablet Take 1,000 mg by mouth once daily. - Selenium 100 mcg tab Take 100 mcg by mouth once daily. - cholecalciferol, vitamin D3, (VITAMIN D3 ORAL) Take 250 mcg by mouth once daily. - Biotin 10,000 mcg cap Take 10,000 mcg by mouth once daily. - melatonin 12 mg tab Take 12 mg by mouth daily at bedtime. - vitamin b complex (B-COMPLEX) tab Take 1 tablet by mouth once daily. - VITAMIN K2 100 MCG CAPSULE - ubidecarenone/vitamin E mixed (COQ10 SG 100 ORAL) Take 100 mg by mouth once daily. - vits A,C,E/lutein/minerals (HEALTHY EYES ORAL) Take by mouth. - traZODone (DESYREL) 50 mg tablet Take 1 tablet by mouth at bedtime as needed. - rosuvastatin (CRESTOR) 40 mg tablet Take 1 tablet by mouth once daily. - nitroglycerin sublingual (NITROQUICK) 0.4 mg SL tablet Dissolve 1 tablet under the tongue as needed. DISSOLVE ON TONGUE FOR CHEST PAIN. IF NO PAIN RELIEF, CALL 911 - citalopram (CELEXA) 40 mg tablet Take 1 tablet by mouth once daily. - pantoprazole DR (PROTONIX) 40 mg tablet Take 1 tablet by mouth once daily. - BD INSULIN SYRINGE ULTRA-FINE 0.3 mL 31 gauge x 5/16" once daily. - insulin glargine (LANTUS U-100 INSULIN) 100 unit/mL injection Inject [address] Palumbo - FIASP FLEXTOUCH U-100 INSULIN 100 unit/mL (3 mL) pen Inject as directed: small meal 5-6units; medium meal 6-7 units; large meal 8-[address] Palumbo. - albuterol HFA (VENTOLIN HFA) 90 mcg/actuation inhaler Inhale 2 Puffs as instructed every 4 hours as needed for wheezing/shortness of breath. - PEG 400-propylene glycol (SYSTANE ULTRA) 0.4-0.3 % ophthalmic solution Use 1 Drop in both eyes every 2 hours while awake. - Insulin Syringe-Needle U-100 (ULTRA FINE INSULIN) 1 mL 30 x 1/2" syrg use 5 times a day as directed. - POLYVINYL ALCOHOL (20/20 ARTIFICIAL TEARS OPHTHALMIC) Use in eyes as needed. 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 os bid and pink cap is qid, not sure of med names, pt didn't bring bottles Problem List As Of Date 08/23/2024 Noted Resolved Disturbance of skin sensation [R20.9] 06/29/2003 09/19/2022 Special screening for malignant neoplasms, colo*06/16/2007 05/31/2012 GASTRITIS/DUODEN NOS W/O HEMORRH [K29.70, K29.9*09/23/2007 Blood in stool [K92.1] 09/23/2007 09/19/2022 Hyperlipidemia [E78.5] 07/04/2010 Hypothyroid [E03.9] 07/04/2010 HTN (hypertension) [I10] 07/04/2010 Reflux [AFM0798] 07/04/2010 09/19/2022 Depression [F32.A] 07/04/2010 Status post coronary artery stent placement [Z9*07/04/2010 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*07/04/2010 CAD (coronary artery disease) [I25.10] 07/04/2010 Degenerative disc disease [SKJ4839] 07/04/2010 Osteoarthritis of right shoulder region [M19.01*07/04/2010 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 Normal [facility] CNOVon 08-17-2024 CNOV Office Visit (GENSWS ) -------- ZORAIDA PIRES ([id number]) 1950 F Date Time Provider Department 08/17/24 1:45 PM ADRIEL SOLIS GENSWS During your visit today, we recorded the following information about you: Pulse Blood pressure Weight 70/minute 135/66 58.1 kg Adriel Solis MD 08/17/2024 8:49 PM Signed HISTORY AND PHYSICAL Zoraida Pires 1950 REFERRING PHYSICIAN: Self CHIEF COMPLAINT: Consult HPI: Meeta is a 73-year-old female with a history of diabetes mellitus, PVD, and CAD, presenting with a bulge and discomfort at a prior transverse RUQ incision site. Meeta reports a bulge and discomfort along the medial aspect of a prior transverse RUQ incision, with exacerbation during lifting and coughing. She was initially evaluated 2 years ago for similar complaints, at which time a CT scan was discussed. She notes that the hernia appears to be enlarging. She has a history of diabetes mellitus, for which she is currently taking 27 units of Tresiba daily and Fiasp as needed. She reports that her blood glucose levels are "out of whack" and is preparing to start using an insulin pump. She also has a history of PVD and underwent bilateral peripheral stent placements approximately 2 years ago. She is a current smoker, consuming half a pack of cigarettes per day, but is attempting to quit. Meeta has a history of CAD and experienced worsening angina in November of last year. She underwent a cardiac catheterization, which revealed a 70% LAD lesion, an 80% circumflex lesion, and a totally occluded RCA. She subsequently underwent revascularization surgery in [place] of last year at [facility]. Her postoperative course was complicated by renal failure, requiring dialysis. She reports that her renal function has since improved, with recent blood work in June showing good results. She is scheduled for a follow-up appointment with her marketing proposal specialist next month. She denies any current chest pain or discomfort and was last seen by her hatch tender in June, who reportedly found no issues. She is currently taking aspirin and Coreg. She also has a history of a ruptured appendix, for which she has a large scar. She denies any sensation of a lower abdominal hernia. The patient is being seen by me today at the request of Dr. Sandy Braswell MD for my opinion and advice regarding incisional hernia increasing in size. PAST MEDICAL HISTORY Diagnosis Date Atherosclerosis Cataract both eyes Degenerative disc disease Depression Diabetes mellitus (HCC) Essential hypertension, benign Hemorrhage of gastrointestinal tract, unspecified Impaired circulation of left leg both legs Neuropathy Other acute and subacute form of ischemic heart disease 06/01/1995 Other and unspecified hyperlipidemia Other specified disorders of pancreatic internal secretion PDR (proliferative diabetic retinopathy) (HCC) Pseudophakia of left eye Sleep apnea Unspecified hypothyroidism PAST SURGICAL HISTORY Procedure Laterality Date BALLN ANGIOPLASTY OPEN,FEM-POP COLONOSCOPY FLX DX W/COLLJ SPEC WHEN PFRMD 09/23/2007 Colonoscopy ESOPHAGOGASTRODUODENOSCO PY TRANSORAL DIAGNOSTIC 09/23/2007 EGD PAST SURGICAL HISTORY OF 2004-? Laser Treatments Both Eyes (Ongoing) PERC TRANSL COR ANGIO Percutaneous Transluminal Coronary Angio Status POST-CATARACT LASER SURGERY Right 11/11/2023 Dr. Christensen REMMellissa CATARACT EXTRACAP,INSERT LENS Bilateral RMVL LENS MATERIAL PHACOFRAGMENTATION ASPIR os 01/09/2011 Cataract Extraction STENT PLACEMENT 06/01/1995 with HI VITRECTOMY MECHANICAL PARS PLANA os 01/09/2011 [place] Vitrectomy WRIST SPLINT carpal tunnel on R Current Outpatient Medications Medication Sig lisinopril (ZESTRIL) 20 mg tablet Take 20 mg by mouth once daily. aspirin, enteric coated (ASPIRIN, ENTERIC COATED) 81 mg EC tablet Take 1 tablet by mouth once daily. carvedilol (COREG) 3.125 mg tablet Take 3.125 mg by mouth two times a day with meals. levothyroxine (SYNTHROID) 75 mcg tablet Take 1 tablet by mouth every afternoon. HYDROcodone-Acetaminophe n (NORCO) 10-325 mg per tablet Take 1 tablet by mouth every 12 hours. ZINC PICOLINATE ORAL Take 50 mg by mouth once daily. ferrous bis-glycinate chelate (IRON BISGLYCINATE CHELATE ORAL) Take 18 mg by mouth once daily. MAGNESIUM GLYCINATE ORAL Take 500 mg by mouth once daily. Ascorbic Acid (VITAMIN C) 1,000 mg tablet Take 1,000 mg by mouth once daily. Selenium 100 mcg tab Take 100 mcg by mouth once daily. cholecalciferol, vitamin D3, (VITAMIN D3 ORAL) Take 250 mcg by mouth once daily. Biotin 10,000 mcg cap Take 10,000 mcg by mouth once daily. melatonin 12 mg tab Take 12 mg by mouth daily at bedtime. vitamin b complex (B-COMPLEX) tab Take 1 tablet by mouth once daily. VITAMIN K2 100 MCG CAPSULE ubidecarenone/vitamin E mixed (COQ10 SG 100 ORAL) Ta (more content not included)... Normal [facility] CNOVon 08-03-2024 CNOV Office Visit (FAMWS ) -------- ZORAIDA PIRES ([id number]) 1950 F Date Time Provider Department 08/03/24 3:20 PM SANDY BRASWELL During your visit today, we recorded the following information about you: Pulse Blood pressure Weight Height 65/minute 104/50 58.1 kg 1.524 m Sandy Braswell MD 08/03/2024 3:42 PM Signed Patient presents with: 6 Month Exam HPI: Patient presents today for office visit for routine 6 month follow up. No chest pain or shortness of breath of breath. No edema. No falls Still seeing Dr Palumbo, endo, Dr Hollis, nephrology., [facility]. A1c was just 7.4. Thyroid recently checked and was good. Due to follow up with lung cancer screening clinic. Sees Dr Solis soon. Discussed she can talk with him about her colonoscopy. Had CABG in December at [facility]. Has seen cardiology since but we have no records. Doing well. Will try and obtain those. Has had labs done in the last six months for all of her issues. Has not been back to see anyone for her back. Note was copied and pasted, without alteration from:HPI of last ov in 2023: Medication reconciled. Follows with Endocrinology for her sugars. Dr. Palumbo. They are following with her thyroid as well. Has continuous glucose monitor. A1c 10/21/23 8.0 Had wound culture done on 12/09/23 of left knee. Woke up on 12/07/23 with swelling to left knee cap. Noticed her pants were all wet and saw that the abscess had broke open. Currently taking Amoxicillin 875 mg BID. Knee is looking better. Seen at urgent. Was to follow with ortho. Encouraged. Is looking much better. Was red and warm. No fever. One culture is growing a meth resistant staph. Follows with Nephrology. Dr. Hollis. Recently taken off HCTZ and started on spironolactone. HTN: Monitors BP occ. Chest pain after exertion. Cardiology is aware. Has not changed. Shortness of breath with exertion. Follows with Cardiology. Dr. Wood. Having heart cath scheduled 12/22/23. Denies palpitations Denies syncope Denies edema She has been seeing Dr Nielsen. Will be seeing Dr Cuello. Emotionally is doing well. Has had recent labs at [facility]. Needs mammogram order sent to [facility]. Note was copied and pasted, without alteration from: last ov Still seeing Dr. Palumbo. Just saw her on Thursday. Sugars have been relatively. Last a1c was 7.1 Still continue to have back pain. Saw Dr. Nielsen, spine med, who felt there was nothing he could do for her spine. It is inoperable. She has still not gotten into pain management. Reinforced need to do so. She would like to see Dr Winkler. Will repeat controlled substance agreement and do tox screen. She had requested ambien. Again discussed that we should not use it with the hydrocodone. No chest pain No dyspnea. Still seeing cardiology. Bp is stable. Still some stress with her home situation. Had her lung cancer screening. She will verify with her hospital in [facility] when her last colonoscopy. MEDICATIONS: Current Outpatient Medications Medication Sig lisinopril (ZESTRIL) 20 mg tablet Take 20 mg by mouth once daily. aspirin, enteric coated (ASPIRIN, ENTERIC COATED) 81 mg EC tablet Take 1 tablet by mouth once daily. carvedilol (COREG) 3.125 mg tablet Take 3.125 mg by mouth two times a day with meals. levothyroxine (SYNTHROID) 75 mcg tablet Take 1 tablet by mouth every afternoon. HYDROcodone-Acetaminophe n (NORCO) 10-325 mg per tablet Take 1 tablet by mouth every 12 hours. ZINC PICOLINATE ORAL Take 50 mg by mouth once daily. ferrous bis-glycinate chelate (IRON BISGLYCINATE CHELATE ORAL) Take 18 mg by mouth once daily. MAGNESIUM GLYCINATE ORAL Take 500 mg by mouth once daily. Ascorbic Acid (VITAMIN C) 1,000 mg tablet Take 1,000 mg by mouth once daily. Selenium 100 mcg tab Take 100 mcg by mouth once daily. cholecalciferol, vitamin D3, (VITAMIN D3 ORAL) Take 250 mcg by mouth once daily. Biotin 10,000 mcg cap Take 10,000 mcg by mouth once daily. melatonin 12 mg tab Take 12 mg by mouth daily at bedtime. vitamin b complex (B-COMPLEX) tab Take 1 tablet by mouth once daily. VITAMIN K2 100 MCG CAPSULE ubidecarenone/vitamin E mixed (COQ10 SG 100 ORAL) Take 100 mg by mouth once daily. vits A,C,E/lutein/minerals (HEALTHY EYES ORAL) Take by mouth. gabapentin (NEURONTIN) 100 mg capsule Take 1 capsule by mouth three times a day for 30 days. traZODone (DESYREL) 50 mg tablet Take 1 tablet by mouth at bedtime as needed. rosuvastatin (CRESTOR) 40 mg tablet Take 1 tablet by mouth once daily. nitroglycerin sublingual (NITROQUICK) 0.4 mg SL tablet Dissolve 1 tablet under the tongue as needed. DISSOLVE ON TONGUE FOR CHEST PAIN. IF NO PAIN RELIEF, CALL 911 citalopram (CELEXA) 40 mg tablet Take 1 tablet by mouth once daily. pantoprazole DR (PROTONIX) 40 mg tablet Take 1 tablet by mouth once daily. BD INSULIN SYRINGE ULTRA-FINE 0.3 mL 31 g (more content not included)... Normal [facility] -------- ZORAIDA PIRES ([id number]) 1950 F Date Time Provider Department 07/07/24 SANDY BRASWELL During your visit today, we recorded the following information about you: Juana Hansen RN 07/07/2024 12:12 PM Signed Patient calling to request a refill, but of a decreased strength. Patient requesting refill of gabapentin 100 mg three times a day. Pt was on gabapentin 800 mg 2 times a day but states it was decreased by [facility] after her open heart surgery in December 2023. Patient has appt with Dr. Braswell on 08/03/24. Pt asking if can have refill to last at least until she sees Dr. Braswell. Pended, as requested. No call back needed to patient if agreeable to send as requested. MIRIAM Washburn Christy, SNEHA.ADVANCED CLINICAL SPECIALIST 07/08/2024 5:16 PM Signed OARRS checked and confirmed been taking 100 mg TID. Will go ahead and refill for a month. Script sent. Flaca Fischer APRN.ADVANCED CLINICAL SPECIALIST Allergies As of Date: 07/07/2024 (No Active Allergies) Date Reviewed: 12/14/2023 Reviewed by: Meg Esposito MA - Fully Assessed Reason for Visit: Medication Request [138] Order(s):gabapentin (NEURONTIN) 100 mg capsuleTake 1 capsule by mouth three times a day for 30 days.Disp: 90 capsuleRfl: 0 Prescriptions as of 07/11/2024 - gabapentin (NEURONTIN) 100 mg capsule Take 1 capsule by mouth three times a day for 30 days. - traZODone (DESYREL) 50 mg tablet Take 1 tablet by mouth at bedtime as needed. - clopidogrel (PLAVIX) 75 mg tablet Take 1 tablet by mouth once daily. - amoxicillin-clavulanate potassium (AUGMENTIN) 875-125 mg per tablet Take 1 tablet by mouth every 12 hours. - rosuvastatin (CRESTOR) 40 mg tablet Take 1 tablet by mouth once daily. - nitroglycerin sublingual (NITROQUICK) 0.4 mg SL tablet Dissolve 1 tablet under the tongue as needed. DISSOLVE ON TONGUE FOR CHEST PAIN. IF NO PAIN RELIEF, CALL 911 - metoprolol succinate ER (TOPROL XL) 100 mg Take 1 tablet by mouth once daily. - citalopram (CELEXA) 40 mg tablet Take 1 tablet by mouth once daily. - amLODIPine (NORVASC) 5 mg tablet Take 1 tablet by mouth every afternoon. - pantoprazole DR (PROTONIX) 40 mg tablet Take 1 tablet by mouth once daily. - cilostazol (PLETAL) 50 mg tablet 1 tablet 30 minutes before or 2 hours after breakfast and dinner Orally Twice a day for 30 day(s) - BD INSULIN SYRINGE ULTRA-FINE 0.3 mL 31 gauge x 5/16" once daily. - insulin glargine (LANTUS U-100 INSULIN) 100 unit/mL injection Inject [address] Palumbo - FIASP FLEXTOUCH U-100 INSULIN 100 unit/mL (3 mL) pen Inject as directed: small meal 5-6units; medium meal 6-7 units; large meal 8-[address] Palumbo. - buPROPion SR (ZYBAN SR; WELLBUTRIN SR) 150 mg 12 hr tablet Take 1 tablet by mouth every 12 hours. - HYDROcodone-Acetaminophe n (NORCO) 7.5-325 mg per tablet Take 1 tablet by mouth every 6 hours as needed for pain for up to 30 days. - blood sugar diagnostic (BLOOD GLUCOSE TEST) test strip Test blood sugar(s) 3 times daily. Dx: Type 1 DM - Uncontrolled E 10.65 Insulin: Yes - isosorbide dinitrate (ISORDIL) 20 mg tablet Take 1 tablet by mouth twice daily. - albuterol HFA (VENTOLIN HFA) 90 mcg/actuation inhaler Inhale 2 Puffs as instructed every 4 hours as needed for wheezing/shortness of breath. - lisinopril (ZESTRIL) 40 mg tablet Take 40 mg by mouth once daily. - spironolactone (ALDACTONE) 50 mg tablet Take 50 mg by mouth twice daily. - PEG 400-propylene glycol (SYSTANE ULTRA) 0.4-0.3 % ophthalmic solution Use 1 Drop in both eyes every 2 hours while awake. - levothyroxine (SYNTHROID) 100 mcg tablet Take 100 mcg by mouth once daily. - Insulin Syringe-Needle U-100 (ULTRA FINE INSULIN) 1 mL 30 x 1/2" syrg use 5 times a day as directed. - POLYVINYL ALCOHOL (20/20 ARTIFICIAL TEARS OPHTHALMIC) Use in eyes as needed. 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 os bid and pink cap is qid, not sure of med names, pt didn't bring bottles Problem List As Of Date 07/07/2024 Noted Resolved Disturbance of skin sensation [R20.9] 06/29/2003 09/19/2022 Special screening for malignant neoplasms, colo*06/16/2007 05/31/2012 GASTRITIS/DUODEN NOS W/O HEMORRH [K29.70, K29.9*09/23/2007 Blood in stool [K92.1] 09/23/2007 09/19/2022 Hyperlipidemia [E78.5] 07/04/2010 Hypothyroid [E03.9] 07/04/2010 HTN (hypertension) [I10] 07/04/2010 Reflux [MAU4301] 07/04/2010 09/19/2022 Depression [F32.A] 07/04/2010 Status post coronary artery stent placement [Z9*07/04/2010 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*07/04/2010 CAD (coronary artery disease) [I25.10] 07/04/2010 Degenerative disc disease [FMC5028] 07/04/2010 Osteoarthritis of right shoulder region [M19.01*07/04/2010 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 Normal [facility] Basic Metabolic Profile (BMP )on 06-15-2024 BUN/CRE 20.2 RATIO High 03-20 [facility] Comment on above: Performed By: #### L 506.0400, L501.9520, L500.2500 #### [facility] [address] [place], [address] CA,Total 9.5 mg/dL Normal 8.5-10.1 [facility] Comment on above: Performed By: #### L 506.0400, [id number], L500.2500 #### [facility] [address] [place], [address] Chloride [Moles/Vol] 104 mmol/L Normal 98-107 [facility] Comment on above: Performed By: #### L 506.0400, [id number], L500.2500 #### [facility] [address] [place], [address] CO2 [Moles/Vol] 30.0 mmol/L Normal 21.0-32.0 [facility] Comment on above: Performed By: #### L 506.0400, [id number], L500.2500 #### [facility] [address] [place], [address] Creatinine [Mass/Vol] 1.19 mg/dL High 0.55-1.02 [facility] Comment on above: Result Comment: The validity of the calculated GFR GFRAA in patients over 70 years has not been determined. Clinical correlation is essential. Performed By: #### L 506.0400, [id number], L500.2500 #### [facility] [address] [place], [address] EST GFR - AA 57 mL/min Low >60 [facility] Comment on above: Result Comment: Afri can Citizen Of [place] GFR Calc Performed By: #### L 506.0400, [id number], L500.2500 #### [facility] [address] [place], [address] GAP 7 Normal 5-15 [facility] Comment on above: Performed By: #### L 506.0400, [id number], L500.2500 #### [facility] [address] [place], [address] GFR/1.73 sq M.predicted among non-blacks MDRD (S/P/Bld) [Vol rate/Area] 47 mL/min/{1.73_m2} Low >60 [facility] Comment on above: Result Comment: Non- GFR Calc Performed By: #### L 506.0400, [id number], L500.2500 #### [facility] [address] [place], [address] Glucose [Mass/Vol] 110 mg/dL High 74-106 [facility] Comment on above: Result Comment: Fast ing Glucose result from 100 to 125 mg/dL suggests IMPAIRED HOMEOSTASIS per A.D.A. criteria. Performed By: #### L 506.0400, [id number], L500.2500 #### [facility] [address] [place], [address] Potassium [Moles/Vol] 4.1 mmol/L Normal 3.5-5.1 [facility] Comment on above: Performed By: #### L 506.0400, [id number], L500.2500 #### [facility] [address] [place], [address] Sodium [Moles/Vol] 140 mmol/L Normal 136-145 [facility] Comment on above: Performed By: #### L 506.0400, [id number], L500.2500 #### [facility] [address] [place], [address] Urea nitrogen [Mass/Vol] 24 mg/dL High 7-18 [facility] Comment on above: Performed By: #### L 506.0400, [id number], L500.2500 #### [facility] [address] [place], [address] Blood urea nitrogen (BUN)/cr eatinine ratioOrdered By: Itzel Dominguez on 06-15-2024 Urea nitrogen/Creatinine [Mass ratio] 20.2 mg/mg High - [facility] Carbon dioxide measurementOr dered By: Itzel Dominguez on 06-15-2024 CO2 [Moles/Vol] 30.0 mmol/L 21.0-32.0 [facility] Chloride measurementOrdered By: Itzel Dominguez on 06-15-2024 Chloride [Moles/Vol] 104 mmol/L 98-107 [facility] Direct serum free thyroxine (FT4) measurementOrdered By: Itzel Dominguez on 06-15-2024 Free T4 [Mass/Vol] 1.53 ng/dL High 0.76-1.46 [facility] Estimated glomerular filtrat ion rate (GFR) AmericanOrdered By: Itzel Dominguez on 06-15-2024 Estimated GFR (MDRD) Amer 57 mL/min Low >60 [facility] Comment on above: GFR Calc Glomerular filtration rate ( GFR) estimationOrdered By: Itzel Dominguez on 06-15-2024 Estimated GFR (MDRD) Non-Af Amer 47 mL/min Low >60 [facility] Comment on above: Non- GFR Calc Glucose measurementOrdered B y: Itzel Dominguez on 06-15-2024 Glucose [Mass/Vol] 110 mg/dL High 74-106 [facility] Comment on above: Fasting Glucose resu lt from 100 to 125 mg/dL suggests IMPAIRED HOMEOSTASIS per A.D.A. criteria. Potassium measurementOrdered By: Itzel Dominguez on 06-15-2024 Potassium [Moles/Vol] 4.1 mmol/L 3.5-5.1 [facility] Serum anion gap measurementO rdered By: Itzel Dominguez on 06-15-2024 Anion gap [Moles/Vol] 7 mmol/L - [facility] Serum or plasma calcium chapincito urement (mass/volume)Ordered By: Itzel Dominguez on 06-15-2024 Calcium [Mass/Vol] 9.5 mg/dL 8.5-10.1 [facility] Serum or plasma creatinine m easurement (mass/volume)Ordered By: Itzel Dominguez on 06-15-2024 Creatinine [Mass/Vol] 1.19 mg/dL High 0.55-1.02 [facility] Comment on above: The validity of the calculated GFR & GFRAA in patients over 70 years has not been determined. Clinical correlation is essential. Serum or plasma urea nitroge n measurement (mass/volume)Ordered By: Itzel Dominguez on 06-15-2024 Urea nitrogen [Mass/Vol] 24 mg/dL High 7-18 [facility] Sodium levelOrdered By: Isaac Dominguez on 06-15-2024 Sodium [Moles/Vol] 140 mmol/L 136-145 [facility] T4 Free Directon 06-15-2024 T4 FREE DIRECT 1.53 ng/dL High 0.76-1.46 [facility] Comment on above: Performed By: #### L 506.0400, L501.9520, L500.2500 ####[facility] [address] [facility] [id number] TSH QnOrdered By: tIzel pike on 06-15-2024 Thyroid Stimulating Hormone (TSH) 0.162 uIU/mL Low 0.358-3.740 [facility] Thyroid Stim Hormone (TSH)on 06-15-2024 TSH 0.162 uIU/mL Low 0.358-3.740 [facility] Comment on above: Performed By: #### L 506.0400, L501.9520, L500.2500 ####[facility] [address] [place], [place], [address] Endocrinology Visit Reporton 06-13-2024 Endocrinology Visit Report [facility] [address] [place], [place] [address] OFFICE VISIT Date of Service: 06/13/24 MR#: [id number] Acct: [id number] Name: ZORAIDA PIRES Rep #: [id number] : 1950 Provider: LAURA pike Age/Sex: 73/F Location[facility] Status: Signed Intake Vital Signs 04/12/24 08:17 06/13/24 11:31 Height 5 ft 4 ft 10 in Weight: 123 lb 124 lb 8 oz BMI 24.0 26.0 BP 126/68 H 110/67 Blood Pressure Location Lt brachial Lt brachial Position Sitting Sitting Respiration 16 Pulse 56 L 64 Pulse Source NIBP Monitor Pulse Oximetry (%) 95 Oxygen Delivery Method room air Intake Visit Reasons: 5 M FU, NS 01/19 Chief Complaint: f/u diabetes Allergies No Known Allergies Allergy (Verified 06/13/24 11:36) Medications ???Medication ???Instructions ???Recorded ???Confirmed ???Type albuterol 90 mcg/actuation aerosol 90 mcg inhalation DAILY 03/14/22 06/13/24 History inhaler blood sugar diagnostic (Truetest 03/14/22 06/13/24 History Test Strips) hydrocodone 7.5 mg-acetaminophen 1 tab PO Q6H PRN Pain 03/14/22 06/13/24 History 325 mg tablet pantoprazole 40 mg tablet,delayed 40 mg PO DAILY 03/14/22 06/13/24 History release polyvinyl alcohol 1.4 % eye drops 1 drp ophthalmic (eye) BID-QID 03/14/22 06/13/24 History rosuvastatin 40 mg tablet 40 mg PO DAILY 03/14/22 06/13/24 History citalopram 40 mg tablet 40 mg PO DAILY 07/25/22 06/13/24 History nitroglycerin 0.4 mg sublingual 0.4 mg sublingual ONCE #25 tabs 07/28/22 06/13/24 Rx tablet trazodone 50 mg tablet 50 mg PO DAILY 07/13/23 06/13/24 History insulin syringe-needle U-100 0.3 #100 ea 07/15/23 06/13/24 Rx mL 31 gauge x 5/16" (BD Insulin Syringe Ultra-Fine) aspirin 81 mg tablet,delayed 81 mg PO QDAY #90 tabs 04/12/24 06/13/24 Rx release (Adult Aspirin Regimen) bupropion HCl 100 mg tablet 100 mg PO TID 04/12/24 06/13/24 History gabapentin 100 mg capsule 100 mg PO TID 04/12/24 06/13/24 History insulin aspart 14 unit subcut TID 04/12/24 06/13/24 History (niacinamide)(U-100) 100 unit/mL(3 mL) subcutaneous pen (Fiasp FlexTouch U-100 Insulin) insulin glargine 100 unit/mL 30 unit subcut QAM 04/12/24 06/13/24 History subcutaneous solution (Lantus U-100 Insulin) umeclidinium 62.5 mcg/actuation 1 inh inhalation QDAY 04/12/24 06/13/24 History blister powder for inhalation (Incruse Ellipta) carvedilol 3.125 mg tablet 3.125 mg PO BID #180 tabs 05/26/24 06/13/24 Rx levothyroxine 100 mcg tablet 100 mcg PO .qd 1/2 on Sundays #90 05/27/24 06/13/24 Rx tabs ascorbic acid (vitamin C) 1,000 mg 1 g PO Q6H 06/13/24 06/13/24 History capsule cholecalciferol (vitamin D3) 250 250 mcg PO QDAY 06/13/24 06/13/24 History mcg (10,000 unit) capsule coenzyme [id number] E 100 mg-100 cap PO 06/13/24 06/13/24 History unit capsule ferrous gluconate 325 mg (37 mg 18 mg PO QDAY 06/13/24 06/13/24 History iron) tablet magnesium glycinate 100 mg (as 500 mg PO QDAY 06/13/24 06/13/24 History glycinate) tablet selenium 200 mcg capsule 200 mcg PO QDAY 06/13/24 06/13/24 History vit B complex 100 combo no.2 100 tab PO 06/13/24 06/13/24 History mg tablet,extended release (B-100 Complex ER) vitamin K2 100 mcg capsule 100 mcg PO QDAY 06/13/24 06/13/24 History zinc 50 mg tablet 50 mg PO QDAY 06/13/24 06/13/24 History Have you fallen in the past year?: No PFSH Medical History Other bursitis of knee, left knee Tobacco use disorder, continuous Encounter for screening for malignant neoplasm of lung Chronic insomnia Abdominal wall lump DDD (degenerative disc disease) PVD (peripheral vascular disease) Sleep apnea Dyspnea on exertion Mixed hyperlipidemia PAD (peripheral artery disease) History of left heart catheterization (LHC) ( 04/11/15) GERD (gastroesophageal reflux disease) CKD (chronic kidney disease) stage 3, GFR 30-59 ml/min Essential hypertension Presence of stent in coronary artery ( 2004) Atherosclerotic heart disease of [place] coronary artery without angina pectoris Encounter for vitamin deficiency screening Diabetic retinopathy associated with type 1 diabetes mellitus Polyneuropathy due to type 1 diabetes mellitus Appendicitis Proteinuria Lower back pain Heart attack Surgical History History of laparoscopic appendectomy Presence of coronary angioplasty implant and graft H/O angioplasty Hx of tubal ligation Hx of section Family History Other Anxiety Arthritis Breast cancer COPD (chronic obstructive pulmonary disease) CVA (cerebral vascular accident) Cance (more content not included)... Normal [facility] Laboratory - Hematology and Cell countson 06-13-2024 HbA1c (Bld) [Mass fraction] 7.4 % High 4.2-6.3 [facility] LIPID PANEL (OUTSIDE)on 04-01 Cholesterol [Mass/Vol] 119 mg/dL [facility] Cholesterol in HDL [Mass/Vol] 57 mg/dL [facility] Cholesterol in LDL [Mass/Vol] 46 mg/dL [facility] LDL:HDL Ratio [facility] Non-HDL Cholesterol [place] TC:HDL Ratio [facility] Triglyceride [Mass/Vol] 79 mg/dL [facility] VLDL Cholesterol 16 [facility] Comprehensive Metabolic Prof ilon 04-16-2024 Albumin [Mass/Vol] 3.4 g/dL Normal 3.2-5.0 [facility] Comment on above: Performed By: #### L 500.4100, L500.4050 #### [facility] [address] [place], [address] Albumin/Globulin [Mass ratio] 1.0 {ratio} Normal 0.9-2.4 [facility] Comment on above: Performed By: #### L 500.4100, L500.4050 #### [facility] [address] [place], [address] ALK P 73 U/L Normal 45-117 [facility] Comment on above: Performed By: #### L 500.4100, L500.4050 #### [facility] [address] [place], [address] ALT [Catalytic activity/Vol] 19 U/L Normal 13-56 [facility] Comment on above: Performed By: #### L 500.4100, L500.4050 #### [facility] [address] [place], [address] AST [Catalytic activity/Vol] 13 U/L Low 15-37 [facility] Comment on above: Performed By: #### L 500.4100, L500.4050 #### [facility] [address] [place], [address] Bilirubin [Mass/Vol] 0.60 mg/dL Normal 0.20-1.00 [facility] Comment on above: Result Comment: For patients on eltrombopag therapy, use of Dimension [place] TBIL is not recommended. Performed By: #### L 500.4100, L500.4050 #### [facility] [address] [place], [address] BUN/CRE 17.6 RATIO Normal 10-20 [facility] Comment on above: Performed By: #### L 500.4100, L500.4050 #### [facility] [address] [place], [address] CA,Total 9.1 mg/dL Normal 8.5-10.1 [facility] Comment on above: Performed By: #### L 500.4100, L500.4050 #### [facility] [address] [place], [address] Chloride [Moles/Vol] 105 mmol/L Normal 98-107 [facility] Comment on above: Performed By: #### L 500.4100, L500.4050 #### [facility] [address] [place], [address] CO2 [Moles/Vol] 29.0 mmol/L Normal 21.0-32.0 [facility] Comment on above: Performed By: #### L 500.4100, L500.4050 #### [facility] [address] [place], [address] Creatinine [Mass/Vol] 1.08 mg/dL High 0.55-1.02 [facility] Comment on above: Result Comment: The validity of the calculated GFR GFRAA in patients over 70 years has not been determined. Clinical correlation is essential. Performed By: #### L 500.4100, L500.4050 #### [facility] [address] [place], [address] EST GFR - AA 64 mL/min Normal >60 [facility] Comment on above: Result Comment: Afri can Citizen Of [place] GFR Calc Performed By: #### L 500.4100, L500.4050 #### [facility] [address] [place], [address] GAP 4 Low 5-15 [facility] Comment on above: Performed By: #### L 500.4100, L500.4050 #### [facility] [address] [place], [address] GFR/1.73 sq M.predicted among non-blacks MDRD (S/P/Bld) [Vol rate/Area] 53 mL/min/{1.73_m2} Low >60 [facility] Comment on above: Result Comment: Non- GFR Calc Performed By: #### L 500.4100, L500.4050 #### [facility] [address] [place], [address] Globulin (S) [Mass/Vol] 3.5 g/dL Normal 2.2-4.2 [facility] Comment on above: Performed By: #### L 500.4100, L500.4050 #### [facility] [address] [place], [address] Glucose [Mass/Vol] 88 mg/dL Normal 74-106 [facility] Comment on above: Performed By: #### L 500.4100, L500.4050 #### [facility] [address] [place], [address] Potassium [Moles/Vol] 4.2 mmol/L Normal 3.5-5.1 [facility] Comment on above: Performed By: #### L 500.4100, L500.4050 #### [facility] [address] [place], [address] Sodium [Moles/Vol] 138 mmol/L Normal 136-145 [facility] Comment on above: Performed By: #### L 500.4100, L500.4050 #### [facility] [address] [place], [address] T PROT 6.9 g/dL Normal 6.4-8.2 [facility] Comment on above: Performed By: #### L 500.4100, L500.4050 #### [facility] [address] [place], [address] Urea nitrogen [Mass/Vol] 19 mg/dL High 7-18 [facility] Comment on above: Performed By: #### L 500.4100, L500.4050 #### [facility] [address] [place], [address] Lipid Profileon 04-16-2024 Cholesterol [Mass/Vol] 119 mg/dL Normal 200 [facility] Comment on above: Result Comment: <200 mg/dL Desirable 200-240 mg/dL Borderline >240 mg/dL High Risk Performed By: #### L 500.4100, L500.4050 #### [facility] [address] [place], [address] Cholesterol in HDL [Mass/Vol] 57 mg/dL Normal [facility] Comment on above: Result Comment: The drugs N-Acetylcysteine and Metamizole may falsely depress this assay. Reference Range HDL <40 mg/dL Low HDL Cholesterol HDL >or= 60 mg/dL High HDL Cholesterol Performed By: #### L 500.4100, L500.4050 #### [facility] [address] [place], [address] Cholesterol in LDL [Mass/Vol] 46 mg/dL Normal 0-130 [facility] Comment on above: Performed By: #### L 500.4100, L500.4050 #### [facility] [address] [place], [address] Cholesterol in VLDL [Mass/Vol] 16 mg/dL Normal 5-40 [facility] Comment on above: Performed By: #### L 500.4100, L500.4050 #### [facility] [address] [place], [address] Triglyceride [Mass/Vol] 79 mg/dL Normal [facility] Comment on above: Result Comment: The drugs N-Acetylcysteine and Metamizole may falsely depress this assay. Serum Triglycerides Reference Interval Normal <150 mg/dL Borderline high 150 - 199 mg/dL High 200 - 499 mg/dL Very High > or = 500 mg/dL Performed By: #### L 500.4100, L500.4050 #### [facility] [address] [place], [address] Microalb:Creat Ratio,Random URon 04-16-2024 MALB:CRE 245.6 mg/g CRE High <30 mg/g CRE [facility] Comment on above: Performed By: #### L 502.0250, L501.0900, L400.0001 ####[facility] [address] [place], [address] MICROALBUMIN,UR 208.0 mg/L Normal NO RANGE EST. [facility] Comment on above: Performed By: #### L 502.0250, L501.0900, L400.0001 ####[facility] [address] [place], [address] Protein+Creatinine Ratio,Uri neon 11-16-2024 PROT:CRE RATIO 642 mg/g CRE High 0-200 [facility] Comment on above: Performed By: #### L 502.0250, L501.0900, L400.0001 ####[facility] [address] [place], [address] Protein (U) [Mass/Vol] 54.4 mg/dL High <11.9 [facility] Comment on above: Performed By: #### L 502.0250, L501.0900, L400.0001 ####[facility] [address] [place], [address] UR CREAT 84.70 mg/dL Normal NO RANGE EST. [facility] Comment on above: Performed By: #### L 502.0250, L501.0900, L400.0001 ####[facility] [address] [place], [address] Urinalysis, Completeon 04-16 CAST,HYALINE 0-5 SEEN Normal 0-5 [facility] Comment on above: Order Comment: CLEAN CATCH Performed By: #### L 502.0250, L501.0900, L400.0001 ####[facility] [address] [place], [address] BACTERIA 2+ /hpf Normal None Seen [facility] Comment on above: Order Comment: CLEAN CATCH Performed By: #### L 502.0250, L501.0900, L400.0001 ####[facility] [address] [place], [address] EPI,SQUAMOUS 0-5 SEEN Normal 5-10 [facility] Comment on above: Order Comment: CLEAN CATCH Performed By: #### L 502.0250, L501.0900, L400.0001 ####[facility] [address] [place], [address] EPI,TRANSITION 0-5 SEEN Normal 0-5 [facility] Comment on above: Order Comment: CLEAN CATCH Performed By: #### L 502.0250, L501.0900, L400.0001 ####[facility] [address] [place], [address] RBC 0-5 SEEN Normal 0-5 [facility] Comment on above: Order Comment: CLEAN CATCH Performed By: #### L 502.0250, L501.0900, L400.0001 ####[facility] [address] [place], [address] WBC 0-5 SEEN Normal 0-5 [facility] Comment on above: Order Comment: CLEAN CATCH Performed By: #### L 502.0250, L501.0900, L400.0001 ####[facility] [address] [place], [address] Mucus Ql (Urine sed) 0 SEEN Normal [facility] Comment on above: Order Comment: CLEAN CATCH Performed By: #### L 502.0250, L501.0900, L400.0001 ####[facility] [address] [place], [address] 12 Lead EKG performed by [facility] on 04-12-2024 12 Lead EKG performed by [facility] [address] [place] [address] 12 Lead EKG performed by [facility] 04/12/24 1407 MR#: [id number] Acct: [id number] Name: ZORAIDA PIRES Rep #: [id number] : 1950 73 From: Mira Wood MD Attending Dr: Dr. Mira Wood MD Status: DEP AMB Ordering Dr: Mira Wood MD Date: 04/12/24 Location: [facility] Sex: F C Admitted: [facility]/12 Lead EKG performed by [facility] ECG Report Interpretation --Sinus Bradycardia -Nonspecific QRS widening. ABNORMAL Electronically signed on 06/27/2024 at 11:[address] Mira Wood [employer] Version [id number] 06/27/24 1115 Date Mira Wood MD CC: Dr. Sandy Braswell MD Date Dictated: 04/12/241406 Date Transcribed: 04/12/241406 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: BRYAN Signed Normal [facility] Cardiology Visit Reporton Cardiology Visit Report [facility] [address] [facility] [place] [address] OFFICE VISIT Date of Service: 04/12/24 MR#: [id number] Acct: [id number] Name: ZORAIDA PIRES Rep #: [id number] : 1950 Provider: Dr. Mira Wood MD Age/Sex: 73/F Location: [facility] Status: Signed HPI HPI History of Present Illness Details: This lady has had two-vessel coronary artery bypass graft surgery done at [facility] in December of this year with a WALTERS to the LAD and a vein graft to the obtuse marginal. The right posterior lateral ventricular branch was not bypassed as it was deemed too calcified and small. Denies any complaints today. No palpitations. No orthopnea. No PND. No ankle edema. No chest pain or shortness of breath. Intake Vital Signs 12/22/23 08:08 04/12/24 08:17 Height 5 ft 5 ft Weight: 123 lb BMI 24.0 BP 126/68 H Blood Pressure Location Lt brachial Position Sitting Respiration 16 Pulse 56 L Pulse Source NIBP Intake Visit Reasons: 4 M FU Tele Tech Required: No Accompanied by: Self Is patient in pain?: No Allergies No Known Allergies Allergy (Verified 04/12/24 13:43) Medications ???Medication ???Instructions ???Recorded ???Confirmed ???Type albuterol 90 mcg/actuation aerosol 90 mcg inhalation DAILY 03/14/22 04/12/24 History inhaler blood sugar diagnostic (Truetest 03/14/22 04/12/24 History Test Strips) hydrocodone 7.5 mg-acetaminophen 1 tab PO Q6H PRN Pain 03/14/22 04/12/24 History 325 mg tablet pantoprazole 40 mg tablet,delayed 40 mg PO DAILY 03/14/22 04/12/24 History release polyvinyl alcohol 1.4 % eye drops 1 drp ophthalmic (eye) BID-QID 03/14/22 04/12/24 History rosuvastatin 40 mg tablet 40 mg PO DAILY 03/14/22 04/12/24 History citalopram 40 mg tablet 40 mg PO DAILY 07/25/22 04/12/24 History nitroglycerin 0.4 mg sublingual 0.4 mg sublingual ONCE #25 tabs 07/28/22 04/12/24 Rx tablet trazodone 50 mg tablet 50 mg PO DAILY 07/13/23 04/12/24 History insulin syringe-needle U-100 0.3 #100 ea 07/15/23 04/12/24 Rx mL 31 gauge x 5/16" (BD Insulin Syringe Ultra-Fine) levothyroxine 100 mcg tablet 100 mcg PO .qd 1/2 on Sundays #90 12/01/23 04/12/24 Rx tabs amiodarone 200 mg tablet 200 mg PO QDAY 04/12/24 04/12/24 History bupropion HCl 100 mg tablet 100 mg PO TID 04/12/24 04/12/24 History carvedilol 3.125 mg tablet 3.125 mg PO BID 04/12/24 04/12/24 History gabapentin 100 mg capsule 100 mg PO TID 04/12/24 04/12/24 History insulin aspart 14 unit subcut TID 04/12/24 History (niacinamide)(U-100) 100 unit/mL(3 mL) subcutaneous pen (Fiasp FlexTouch U-100 Insulin) insulin glargine 100 unit/mL 30 unit subcut QAM 04/12/24 04/12/24 History subcutaneous solution (Lantus U-100 Insulin) umeclidinium 62.5 mcg/actuation 1 inh inhalation QDAY 04/12/24 04/12/24 History blister powder for inhalation (Incruse Ellipta) Ejection fraction %: 55 Have you fallen in the past year?: No PFSH Medical History Abdominal wall lump Appendicitis Atherosclerotic heart disease of [place] coronary artery without angina pectoris Chronic insomnia CKD (chronic kidney disease) stage 3, GFR 30-59 ml/min DDD (degenerative disc disease) Diabetic retinopathy associated with type 1 diabetes mellitus Dyspnea on exertion Encounter for screening for malignant neoplasm of lung Encounter for vitamin deficiency screening Essential hypertension GERD (gastroesophageal reflux disease) Heart attack History of left heart catheterization (LHC) ( 04/11/15) Lower back pain Mixed hyperlipidemia Other bursitis of knee, left knee PAD (peripheral artery disease) Polyneuropathy due to type 1 diabetes mellitus Presence of stent in coronary artery ( 2004) Proteinuria PVD (peripheral vascular disease) Sleep apnea Tobacco use disorder, continuous Surgical History H/O angioplasty History of laparoscopic appendectomy Hx of section Hx of tubal ligation Presence of coronary angioplasty implant and graft Family History Other Anxiety Arthritis Breast cancer COPD (chronic obstructive pulmonary disease) CVA (cerebral vascular accident) Cancer Cardiovascular disease Depression Diabetes Hyperlipidemia Hypertension Kidney disease Myocardial infarction Osteoporosis Respiratory disease Thyroid disorder Social History (Updated 04/12/24 @ 13:59 by Dillon Blanca, MIRIAM) Smoking Status: Former smoker quit date: 01/21/24 Tobacco: How many years used: 49 alcohol intake: never substance use type: does not use what type of physical activity do you participate in: none ROS Const Con (more content not included)... [facility] 36on 03-23-2024 36 Refill sent [facility] 36 Patient called in an d needs a refill of amioderone, [facility] [place]. She had to r/s with Dr Wood. [facility] Progress Noteon 03-14-[address] [facility] 36on 03-07-2024 36 Followed up with patient. Pt states she will call her hatch tender Dr. Wood to schedule a follow up appointment as soon as possible. Pt denies any further questions or concerns. [facility] CARECOORDon 03-07-2024 [place] Patient Choice Patient Name: ZORAIDA PIRES Date of : 1950 [facility] 36on 03-04-2024 36 Normal [facility] 36 Normal [facility] 36on 02-29-2024 36 Pt seen in office to day 02/29/24, states that nausea and black stools have resolved. See OV note. [facility] CNPNon 02-29[facility]20[facility] -------- ZORAIDA PIRES ([id number]) 1950 F Date Time Provider Department 02/29/24 SANDY BRASWELL [facility] During your visit today, we recorded the following information about you: Nina Simons LPN 02/29/2024 5:13 PM Signed Received notice of elevated BP readings form outside provider office ([facility]) on 02/29/24. 199/75 Please schedule patient for BP check in office with provider. If patient has home monitor bring to office for validation. Meg Esposito MA 03/01/2024 9:56 AM Signed Called and spoke with patient about scheduling a BP follow up. She stated she needs to check with families schedule to see when she'd be able to get a ride. She stated she would figure this out and call us back to schedule. She did not wish to schedule anything while on the phone with me. Requested refill while talking with her. Trazodone. Pended. Meg Esposito MA Allergies As of Date: 02/29/2024 (No Active Allergies) Date Reviewed: 12/14/2023 Reviewed by: Meg Esposito MA - Fully Assessed Reason for Visit: Blood Pressure [15] Order(s):traZODone (DESYREL) 50 mg tabletTake 1 tablet by mouth at bedtime as needed.Disp: 90 tabletRfl: 0 Prescriptions as of 03/01/2024 - traZODone (DESYREL) 50 mg tablet Take 1 tablet by mouth at bedtime as needed. - clopidogrel (PLAVIX) 75 mg tablet Take 1 tablet by mouth once daily. - amoxicillin-clavulanate potassium (AUGMENTIN) 875-125 mg per tablet Take 1 tablet by mouth every 12 hours. - rosuvastatin (CRESTOR) 40 mg tablet Take 1 tablet by mouth once daily. - nitroglycerin sublingual (NITROQUICK) 0.4 mg SL tablet Dissolve 1 tablet under the tongue as needed. DISSOLVE ON TONGUE FOR CHEST PAIN. IF NO PAIN RELIEF, CALL 911 - metoprolol succinate ER (TOPROL XL) 100 mg Take 1 tablet by mouth once daily. - citalopram (CELEXA) 40 mg tablet Take 1 tablet by mouth once daily. - amLODIPine (NORVASC) 5 mg tablet Take 1 tablet by mouth every afternoon. - pantoprazole DR (PROTONIX) 40 mg tablet Take 1 tablet by mouth once daily. - cilostazol (PLETAL) 50 mg tablet 1 tablet 30 minutes before or 2 hours after breakfast and dinner Orally Twice a day for 30 day(s) - BD INSULIN SYRINGE ULTRA-FINE 0.3 mL 31 gauge x 5/16" once daily. - insulin glargine (LANTUS U-100 INSULIN) 100 unit/mL injection Inject [address]. [address] Palumbo - FIASP FLEXTOUCH U-100 INSULIN 100 unit/mL (3 mL) pen Inject as directed: small meal 5-6units; medium meal 6-7 units; large meal 8-[address] Palumbo. - gabapentin (NEURONTIN) 800 mg tablet Take 1 tablet by mouth two times a day for 180 days. - buPROPion SR (ZYBAN SR; WELLBUTRIN SR) 150 mg 12 hr tablet Take 1 tablet by mouth every 12 hours. - HYDROcodone-Acetaminophe n (NORCO) 7.5-325 mg per tablet Take 1 tablet by mouth every 6 hours as needed for pain for up to 30 days. - blood sugar diagnostic (BLOOD GLUCOSE TEST) test strip Test blood sugar(s) 3 times daily. Dx: Type 1 DM - Uncontrolled E 10.65 Insulin: Yes - isosorbide dinitrate (ISORDIL) 20 mg tablet Take 1 tablet by mouth twice daily. - albuterol HFA (VENTOLIN HFA) 90 mcg/actuation inhaler Inhale 2 Puffs as instructed every 4 hours as needed for wheezing/shortness of breath. - lisinopril (ZESTRIL) 40 mg tablet Take 40 mg by mouth once daily. - spironolactone (ALDACTONE) 50 mg tablet Take 50 mg by mouth twice daily. - PEG 400-propylene glycol (SYSTANE ULTRA) 0.4-0.3 % ophthalmic solution Use 1 Drop in both eyes every 2 hours while awake. - levothyroxine (SYNTHROID) 100 mcg tablet Take 100 mcg by mouth once daily. - Insulin Syringe-Needle U-100 (ULTRA FINE INSULIN) 1 mL 30 x 1/2" syrg use 5 times a day as directed. - POLYVINYL ALCOHOL (20/20 ARTIFICIAL TEARS OPHTHALMIC) Use in eyes as needed. 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 os bid and pink cap is qid, not sure of med names, pt didn't bring bottles Problem List As Of Date 02/29/2024 Noted Resolved Disturbance of skin sensation [R20.9] 06/29/2003 09/19/2022 Special screening for malignant neoplasms, colo*06/16/2007 05/31/2012 GASTRITIS/DUODEN NOS W/O HEMORRH [K29.70, K29.9*09/23/2007 Blood in stool [K92.1] 09/23/2007 09/19/2022 Hyperlipidemia [E78.5] 07/04/2010 Hypothyroid [E03.9] 07/04/2010 HTN (hypertension) [I10] 07/04/2010 Reflux [UJM9175] 07/04/2010 09/19/2022 Depression [F32.A] 07/04/2010 Status post coronary artery stent placement [Z9*07/04/2010 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*07/04/2010 CAD (coronary artery disease) [I25.10] 07/04/2010 Degenerative disc disease [KUJ1966] 07/04/2010 Osteoarthritis of right shoulder region [M19.01*07/04/2010 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) [E13*07/04/2010 09/19/2022 Proliferative diabetic retinopathy(362.02) (HC*08/30/201007/18 (more content not included)... [facility] 02-29-2024 Progress Note We want to inform yo u that your patient's blood pressure was noted to be elevated in our office today. We thank you for trusting us with your patient's health. Last BP: BP Readings from Last 2 Encounters: 02/29/24 (!) 199/75 02/23/24 140/67 Normal [facility] Progress Note Normal [facility] 36on 02-26-2024 36 Pt notified to paul winter to hold Eliquis over the weekend, keep appointment with our office on Thursday morning. Pt also advised not to take any NSAID's, be seen in ED immediately if symptoms worsen or any new symptoms arise. Pt verbalized understanding. Normal [facility] 36 Pt is requesting an Rx for nausea medication. Pharmacy verified. Normal [facility] 36 She should continue to hold the eliquis through the she can see Bartolo on thursday work up further Normal [place] [id number] Still waiting on BMP , CBC resulted, scanned into media. Hemoglobin 9.0 today. On 02/20 it was 10.4. Normal [facility] Basic Metabolic Profile (BMP )on 02-26-2024 BUN/CRE 13.2 RATIO Normal 10-20 [facility] Comment on above: Performed By: #### L 500.2500, L100.0500 ####[facility] [address] [place], [address] CA,Total 9.2 mg/dL Normal 8.5-10.1 [facility] Comment on above: Performed By: #### L 500.2500, L100.0500 ####[facility] [address] [place], [address] Chloride [Moles/Vol] 98 mmol/L Normal 98-107 [facility] Comment on above: Performed By: #### L 500.2500, L100.0500 ####[facility] [address] [place], [address] CO2 [Moles/Vol] 30.0 mmol/L Normal 21.0-32.0 [facility] Comment on above: Performed By: #### L 500.2500, L100.0500 ####[facility] [address], [address] Creatinine [Mass/Vol] 1.29 mg/dL High 0.55-1.02 [facility] Comment on above: Result Comment: The validity of the calculated GFR GFRAA in patients over 70 years has not been determined. Clinical correlation is essential. Performed By: #### L 500.2500, L100.0500 ####[facility] [address], [address] EST GFR - AA 52 mL/min Low >60 [facility] Comment on above: Result Comment: Afri can Citizen Of [place] GFR Calc Performed By: #### L 500.2500, L100.0500 ####[facility] [address], [address] GAP 6 Normal 5-15 [facility] Comment on above: Performed By: #### L 500.2500, L100.0500 ####[facility] [address], [address] GFR/1.73 sq M.predicted among non-blacks MDRD (S/P/Bld) [Vol rate/Area] 43 mL/min/{1.73_m2} Low >60 [facility] Comment on above: Result Comment: Non- GFR Calc Performed By: #### L 500.2500, L100.0500 ####[facility] [address] [place], [address] Glucose [Mass/Vol] 180 mg/dL High 74-106 [facility] Comment on above: Result Comment: Fast ing Glucose result greater than or equal to 126 mg/dL suggests DIABETES MELLITUS per A.D.A. criteria. Performed By: #### L 500.2500, L100.0500 ####[facility] [address] [place], [address] Potassium [Moles/Vol] 3.6 mmol/L Normal 3.5-5.1 [facility] Comment on above: Performed By: #### L 500.2500, L100.0500 ####[facility] [address] [place], [address] Sodium [Moles/Vol] 134 mmol/L Low 136-145 [facility] Comment on above: Performed By: #### L 500.2500, L100.0500 ####[facility] [address] [place], [address] Urea nitrogen [Mass/Vol] 17 mg/dL Normal 7-18 [facility] Comment on above: Performed By: #### L 500.2500, L100.0500 ####[facility] [address] [place], [address] CBC-Complete Blood Cnt No Di ffon 02-26-2024 Erythrocyte distribution width (RBC) [Ratio] 14.5 % Normal 11.6-14.6 [facility] Comment on above: Performed By: #### L 500.2500, L100.0500 ####[facility] [address] [place], [address] Hematocrit (Bld) [Volume fraction] 27.6 % Low 37-47 [facility] Comment on above: Performed By: #### L 500.2500, L100.0500 ####[facility] [address] [place], [address] Hemoglobin (Bld) [Mass/Vol] 9.0 g/dL Low 12.0-15.0 [facility] Comment on above: Performed By: #### L 500.2500, L100.0500 ####[facility] [address] [place], [address] MCH (RBC) [Entitic mass] 29.9 pg Normal 27.0-32.0 [facility] Comment on above: Performed By: #### L 500.2500, L100.0500 ####[facility] [address] [place], [address] MCHC (RBC) [Mass/Vol] 32.6 g/dL Normal 32-36 [facility] Comment on above: Performed By: #### L 500.2500, L100.0500 ####[facility] [address] [place], [address] MCV (RBC) [Entitic vol] 91.7 fL Normal 81-99 [facility] Comment on above: Performed By: #### L 500.2500, L100.0500 ####[facility] [address] [place], [address] Platelet mean volume (Bld) [Entitic vol] 8.8 fL Normal 6.2-12.0 [facility] Comment on above: Performed By: #### L 500.2500, L100.0500 ####[facility] [address] [place], [address] Platelets (Bld) [#/Vol] 302 10*3/uL Normal 150-450 [facility] Comment on above: Performed By: #### L 500.2500, L100.0500 ####[facility] [address] [place], [address] RBC (Bld) [#/Vol] 3.01 10*6/uL Low 4.2-5.4 [facility] Comment on above: Performed By: #### L 500.2500, L100.0500 ####[facility] [address] [place], [address] RDW SD 48.1 fl High 35.1-43.9 [facility] Comment on above: Performed By: #### L 500.2500, L100.0500 ####[facility] [address] [place], [address] WBC (Bld) [#/Vol] 10.9 10*3/uL Normal 4.4-11.0 [facility] Comment on above: Performed By: #### L 500.2500, L100.0500 ####[facility] [address] [place], [address] 36on 02-25-2024 36 Normal [facility] 36 Normal [facility] [id number] 02-23-2024 [id number] Normal [facility] CARECOORDon 02-23-2024 CARECOORD Normal [facility] CARECOORD Spoke with patient's son Dave this morning. Will plan for an afternoon discharge home. STANLEY PACC to set up home care. No DME needs. [facility] IDNon 02-23-2024 IDN [facility] Progress Noteon 02-23-2024 Progress Note Normal [facility] Progress Note Normal [facility] Progress Note Query: Severe malnutrition is the Query answer. MD Cuco Normal [facility] Progress Note Normal [facility] BASIC METABOLIC PANELon 01-31 Anion gap [Moles/Vol] 5 mmol/L Normal 3-13 [facility] Comment on above: Performed By: #### L AB15 ####It Business Analyst: DANELLE MASON ([phone])[address] Calcium [Mass/Vol] 8.8 mg/dL Normal 8.4-10.4 [facility] Comment on above: Performed By: #### L AB15 ####It Business Analyst: DANELLE MASON ([phone])[facility] [place] [place] [address] Chloride [Moles/Vol] 98 mmol/L Normal 98-107 [facility] Comment on above: Performed By: #### L AB15 ####It Business Analyst: DANELLE MASON ([phone])[facility])[address] [place] [place] [address] CO2 [Moles/Vol] 28 mmol/L Normal 22-30 [facility] Comment on above: Performed By: #### L AB15 ####It Business Analyst: DANELLE MASON ([phone])[facility])[address] [place] [place] [address] Creatinine [Mass/Vol] 1.20 mg/dL High 0.52-1.04 [facility] Comment on above: Performed By: #### L AB15 ####It Business Analyst: DANELLE MASON ([phone])[facility])[address] [place] [place] [address] GLOMERULAR FILTRATION RATE ML/MIN/1.73 SQ M.PREDICTED 48.5 mL/min/1.73m*2 Low >60.0 [facility] Comment on above: Result Comment: Calc ulation based on the Chronic Kidney Disease Epidemiology Collaboration (CKD-EPI) equation refit without adjustment for race Performed By: #### L AB15 ####It Business Analyst: DANELLE MASON ([phone])[facility])[address] [place] [place] [address] Glucose [Mass/Vol] 136 mg/dL High 70-100 [facility] Comment on above: Performed By: #### L AB15 ####It Business Analyst: DANELLE MASON ([phone])[facility])[address] [place] [address] Potassium [Moles/Vol] 4.5 mmol/L Normal 3.5-5.1 [facility] Comment on above: Performed By: #### L AB15 ####It Business Analyst: DANELLE MASON ([phone])[facility])[address] [place] [place] [address] Sodium [Moles/Vol] 131 mmol/L Low 135-145 [facility] Comment on above: Performed By: #### L AB15 ####It Business Analyst: DANELLE MASON ([phone])[facility] [place] [place] [address] Urea nitrogen [Mass/Vol] 29 mg/dL High 12-15 [facility] Comment on above: Performed By: #### L AB15 ####It Business Analyst: DANELLE MASON ([phone])[facility])[address] [place] [place] [address] CARECOORDon 02-22-2024 CARECOORD Normal [facility] Consulton 02-22-2024 Consult Normal [facility] IDNon 02-22-2024 IDN Normal [facility] Nursing Noteon 02-22-2024 Nursing Note Normal [facility] Progress Noteon 02-22-2024 Progress Note Normal [facility] Progress Note Normal [facility] Progress Note Normal [facility] Progress Note Normal [facility] Progress Note Normal [facility] CBC (HEMOGRAM)on 02-21-2024 Erythrocyte distribution width (RBC) [Ratio] 14.7 % Normal 11.5-15.0 [facility] Comment on above: Performed By: #### L AB294 ####It Business Analyst: DANELLE MASON ([phone])[facility])[address] [place] [place] [address] Hematocrit (Bld) [Volume fraction] 30.8 % Low 35.0-47.0 [facility] Comment on above: Performed By: #### L AB294 ####It Business Analyst: DANELLE MASON ([phone])[facility] [place] [place] [address] Hemoglobin (Bld) [Mass/Vol] 10.4 g/dL Low 11.7-16.0 [facility] Comment on above: Performed By: #### L AB294 ####It Business Analyst: DANELLE MASON ([phone])[facility])[address] [place] [address] MCH (RBC) [Entitic mass] 30.0 pg Normal 26.0-34.0 [facility] Comment on above: Performed By: #### L AB294 ####It Business Analyst: DANELLE MASON ([phone])[facility])[address] [place] [place] [address] MCHC 33.8 % Normal 30.5-36.0 [facility] Comment on above: Performed By: #### L AB294 ####It Business Analyst: DANELLE MASON ([phone])[facility])[address] [place] [address] MCV (RBC) [Entitic vol] 88.8 fL Normal 77.0-99.0 [facility] Comment on above: Performed By: #### L AB294 ####It Business Analyst: DANELLE MASON ([phone])[facility])[address] [place] [address] Platelet mean volume (Bld) [Entitic vol] 9.3 fL Normal 9.0-12.7 [facility] Comment on above: Performed By: #### L AB294 ####It Business Analyst: DANELLE MASON ([phone])[facility])[address] [place] [place] [address] Platelets (Bld) [#/Vol] 283 10*3/uL Normal 140-440 [facility] Comment on above: Performed By: #### L AB294 ####It Business Analyst: DANELLE MASON ([phone])[facility])[address] [place] [address] RBC (Bld) [#/Vol] 3.47 10*6/uL Low 3.80-5.20 [facility] Comment on above: Performed By: #### L AB294 ####It Business Analyst: DANELLE MASON ([phone])[facility])[address] [place] [address] WBC (Bld) [#/Vol] 9.8 10*3/uL Normal 3.6-10.7 [facility] Comment on above: Performed By: #### L AB294 ####It Business Analyst: DANELLE MASON ([phone])[facility] [place] [place] [address] COMPREHENSIVE METABOLIC PANE Manuel 02-21-2024 Albumin [Mass/Vol] 3.3 g/dL Low 3.5-5.0 [facility] Comment on above: Performed By: #### L AB17 ####It Business Analyst: DANELLE MASON ([phone])[facility] [place] [place] [address] ALP [Catalytic activity/Vol] 85 U/L Normal 38-126 [facility] Comment on above: Performed By: #### L AB17 ####It Business Analyst: DANELLE MASON ([phone])[facility] [place] [place] [address] ALT [Catalytic activity/Vol] 91 U/L High 0-34 [facility] Comment on above: Performed By: #### L AB17 ####It Business Analyst: DANELLE MASON ([phone])[facility] [place] [place] [address] Anion gap [Moles/Vol] 6 mmol/L Normal 3-13 [facility] Comment on above: Performed By: #### L AB17 ####It Business Analyst: DANELLE MASON ([phone])[facility] [place] [address] AST [Catalytic activity/Vol] 75 U/L High 15-46 [facility] Comment on above: Performed By: #### L AB17 ####It Business Analyst: DANELLE MASON ([phone])[facility] [place] [place] [address] Bilirubin [Mass/Vol] 0.9 mg/dL Normal 0.2-1.3 [facility] Comment on above: Performed By: #### L AB17 ####It Business Analyst: DANELLE MASON ([phone])[facility] [place] [address] [place] Calcium [Mass/Vol] 9.1 mg/dL Normal 8.4-10.4 [facility] Comment on above: Performed By: #### L AB17 ####It Business Analyst: DANELLE MASON ([phone])[facility] [place] [place] [address] Chloride [Moles/Vol] 97 mmol/L Low 98-107 [facility] Comment on above: Performed By: #### L AB17 ####It Business Analyst: DANELLE MASON ([phone])[facility] [place] [address] CO2 [Moles/Vol] 25 mmol/L Normal 22-30 [facility] Comment on above: Performed By: #### L AB17 ####It Business Analyst: DANELLE MASON ([phone])[facility] [place] [place] [address] Creatinine [Mass/Vol] 1.34 mg/dL High 0.52-1.04 [facility] Comment on above: Performed By: #### L AB17 ####It Business Analyst: DANLELE MASON ([phone])[facility] [place] [address] [place] GLOMERULAR FILTRATION RATE ML/MIN/1.73 SQ M.PREDICTED 42.5 mL/min/1.73m*2 Low >60.0 [facility] Comment on above: Result Comment: Calc ulation based on the Chronic Kidney Disease Epidemiology Collaboration (CKD-EPI) equation refit without adjustment for race Performed By: #### L AB17 ####It Business Analyst: DANELLE MASON ([phone])[facility] [place] [address] [place] Glucose [Mass/Vol] 129 mg/dL High 70-100 [facility] Comment on above: Performed By: #### L AB17 ####It Business Analyst: DANELLE MASON ([phone])[facility] [place] [address] [place] Potassium [Moles/Vol] 4.4 mmol/L Normal 3.5-5.1 [facility] Comment on above: Performed By: #### L AB17 ####It Business Analyst: DANELLE MASON ([phone])[facility])[address] [place] [place] [address] Protein [Mass/Vol] 6.1 g/dL Low 6.3-8.2 [facility] Comment on above: Performed By: #### L AB17 ####It Business Analyst: DANELLE MASON ([phone])[facility] [place] [place] [address] Sodium [Moles/Vol] 129 mmol/L Low 135-145 [facility] Comment on above: Performed By: #### L AB17 ####It Business Analyst: DANELLE MASON ([phone])[facility] [place] [place] [address] Urea nitrogen [Mass/Vol] 32 mg/dL High 7-17 [facility] Comment on above: Performed By: #### L AB17 ####It Business Analyst: DANELLE MASON ([phone])[facility] [place] [place] [address] Progress Noteon 02-21-2024 Progress Note Normal [facility] Progress Note Normal [facility] Progress Note Normal [facility] BASIC METABOLIC PANELon 09-2 Anion gap [Moles/Vol] 9 mmol/L Normal 3-13 [facility] Comment on above: Performed By: #### L AB15 ####It Business Analyst: DANELLE MASON ([phone])[facility] [place] [address] [place] Calcium [Mass/Vol] 9.3 mg/dL Normal 8.4-10.4 [facility] Comment on above: Performed By: #### L AB15 ####It Business Analyst: DANELLE MASON ([phone])[facility] [place] [place] [address] Chloride [Moles/Vol] 92 mmol/L Low 98-107 [facility] Comment on above: Performed By: #### L AB15 ####It Business Analyst: DANELLE MASON ([phone])[facility])[address] [place] [address] CO2 [Moles/Vol] 26 mmol/L Normal 22-30 [facility] Comment on above: Performed By: #### L AB15 ####It Business Analyst: DANELLE MASON ([phone])[facility])[address] [place] [place] [address] Creatinine [Mass/Vol] 1.22 mg/dL High 0.52-1.04 [facility] Comment on above: Performed By: #### L AB15 ####It Business Analyst: DANELLE MASON ([phone])[facility])[address] [place] [address] GLOMERULAR FILTRATION RATE ML/MIN/1.73 SQ M.PREDICTED 47.5 mL/min/1.73m*2 Low >60.0 [facility] Comment on above: Result Comment: Calc ulation based on the Chronic Kidney Disease Epidemiology Collaboration (CKD-EPI) equation refit without adjustment for race Performed By: #### L AB15 ####It Business Analyst: DANELLE MASON ([phone])[facility])[address] [place] [address] Glucose [Mass/Vol] 248 mg/dL High 70-100 [facility] Comment on above: Performed By: #### L AB15 ####It Business Analyst: DANELLE MASON ([phone])[facility])[address] [place] [place] [address] Potassium [Moles/Vol] 4.2 mmol/L Normal 3.5-5.1 [facility] Comment on above: Performed By: #### L AB15 ####It Business Analyst: DANELLE MASON ([phone])[facility])[address] [place] [address] [place] Sodium [Moles/Vol] 127 mmol/L Low 135-145 [facility] Comment on above: Performed By: #### L AB15 ####It Business Analyst: DANELLE MASON ([phone])[facility] [place] [place] [address] Urea nitrogen [Mass/Vol] 31 mg/dL High 7-17 [facility] Comment on above: Performed By: #### L AB15 ####It Business Analyst: DANELLE MASON ([phone])[facility])[address] [place] [place] [address] CREATININE, URINE, 24 HOURon 02-20-2024 CREATININE IN 24 HOUR URINE 0.7 g/24 H Low 0.8-1.8 [facility] Comment on above: Performed By: #### L AB712 ####It Business Analyst: DANELLE MASON ([phone])[facility])[address] [place] [place] [address] Progress Noteon 02-20-2024 Progress Note Normal [facility] Progress Note Normal [facility] Progress Note Normal [facility] UREA NITROGEN, URINEon 02-19 UREA NITROGEN, URINE 683 mg/dL Normal No [facility] [facility] Comment on above: Order Comment: 24 hr Performed By: #### L [id number] ####It Business Analyst: DANELLE MASON ([phone])[facility])[address] [place] [address] BASIC METABOLIC PANELon 01-31 Anion gap [Moles/Vol] 6 mmol/L Normal 3-13 [facility] Comment on above: Performed By: #### L AB15 ####It Business Analyst: DANELLE MASON ([phone])[facility])[address] [place] [address] Calcium [Mass/Vol] 7.9 mg/dL Low 8.4-10.4 [facility] Comment on above: Performed By: #### L AB15 ####It Business Analyst: DANELLE MASON ([phone])[facility])[address] [place] [address] Chloride [Moles/Vol] 102 mmol/L Normal 98-107 [facility] Comment on above: Performed By: #### L AB15 ####It Business Analyst: DANELLE MASON ([phone])[facility])[address] [place] [address] CO2 [Moles/Vol] 21 mmol/L Low 22-30 [facility] Comment on above: Performed By: #### L AB15 ####It Business Analyst: DANELLE MASON ([phone])[facility])[address] [place] [address] Creatinine [Mass/Vol] 1.20 mg/dL High 0.52-1.04 [facility] Comment on above: Performed By: #### L AB15 ####It Business Analyst: DANELLE MASON ([phone])[facility])[address] [place] [address] GLOMERULAR FILTRATION RATE ML/MIN/1.73 SQ M.PREDICTED 48.5 mL/min/1.73m*2 Low >60.0 [facility] Comment on above: Result Comment: Calc ulation based on the Chronic Kidney Disease Epidemiology Collaboration (CKD-EPI) equation refit without adjustment for race Performed By: #### L AB15 ####It Business Analyst: DANELLE MASON ([phone])[facility])[address] [place] [address] Glucose [Mass/Vol] 272 mg/dL High 70-100 [facility] Comment on above: Performed By: #### L AB15 ####It Business Analyst: DANELLE MASON ([phone])[facility])[address] [place] [address] [place] Potassium [Moles/Vol] 3.7 mmol/L Normal 3.5-5.1 [facility] Comment on above: Performed By: #### L AB15 ####It Business Analyst: DANELLE MASON ([phone])[facility])[address] [place] [address] [place] Sodium [Moles/Vol] 129 mmol/L Low 135-145 [facility] Comment on above: Performed By: #### L AB15 ####It Business Analyst: DANELLE MASON ([phone])[facility])[address] [place] [address] Urea nitrogen [Mass/Vol] 30 mg/dL High 7-17 [facility] Comment on above: Performed By: #### L AB15 ####It Business Analyst: DANELLE MASON ([phone])[facility])[address] [place] [address] CARECOORDon 02-19-2024 CARECOORD Normal [facility] HEMOGLOBIN AND HEMATOCRIT, B LOODon 02-19-2024 Hematocrit (Bld) [Volume fraction] 30.5 % Low 35.0-47.0 [facility] Comment on above: Order Comment: Recom mend 1 hour post transfusion Performed By: #### L [id number] ####It Business Analyst: DANELLE MASON ([phone])[facility])[address] [place] [address] Hemoglobin (Bld) [Mass/Vol] 10.3 g/dL Low 11.7-16.0 [facility] Comment on above: Order Comment: Recom mend 1 hour post transfusion Performed By: #### L [id number] ####It Business Analyst: DANELLE MASON ([phone])[facility])[address] [place] [address] IDNon 02-19-2024 IDN Normal [facility] Progress Noteon 02-19-2024 Progress Note Normal [facility] Normal [facility] Progress Note Normal [facility] BASIC METABOLIC PANELon 01-30 Anion gap [Moles/Vol] 2 mmol/L Low 3-13 [facility] Comment on above: Performed By: #### L AB15 ####It Business Analyst: DANELLE MASON ([phone])[facility])[address] [place] [address] Calcium [Mass/Vol] 8.8 mg/dL Normal 8.4-10.4 [facility] Comment on above: Performed By: #### L AB15 ####It Business Analyst: DANELLE MASON ([phone])[facility])[address] [place] [place] [address] Chloride [Moles/Vol] 97 mmol/L Low 98-107 [facility] Comment on above: Performed By: #### L AB15 ####It Business Analyst: DANELLE MASON ([phone])[facility])[address] [place] [place] [address] CO2 [Moles/Vol] 27 mmol/L Normal 22-30 [facility] Comment on above: Performed By: #### L AB15 ####It Business Analyst: DANELLE MASON ([phone])[facility])[address] [place] [address] Creatinine [Mass/Vol] 1.52 mg/dL High 0.52-1.04 [facility] Comment on above: Performed By: #### L AB15 ####It Business Analyst: DANELLE MASON ([phone])[facility])[address] [place] [place] [address] GLOMERULAR FILTRATION RATE ML/MIN/1.73 SQ M.PREDICTED 36.5 mL/min/1.73m*2 Low >60.0 [facility] Comment on above: Result Comment: Calc ulation based on the Chronic Kidney Disease Epidemiology Collaboration (CKD-EPI) equation refit without adjustment for race Performed By: #### L AB15 ####It Business Analyst: DANELLE MASON ([phone])[facility])[address] [place] [address] Glucose [Mass/Vol] 212 mg/dL High 70-100 [facility] Comment on above: Performed By: #### L AB15 ####It Business Analyst: DANELLE MASON ([phone])[facility])[address] [place] [place] [address] Potassium [Moles/Vol] 4.3 mmol/L Normal 3.5-5.1 [facility] Comment on above: Performed By: #### L AB15 ####It Business Analyst: DANELLE MASON ([phone])[facility])[address] [place] [place] [address] Sodium [Moles/Vol] 127 mmol/L Low 135-145 [facility] Comment on above: Performed By: #### L AB15 ####It Business Analyst: DANELLE MASON ([phone])[facility])[address] [place] [address] Urea nitrogen [Mass/Vol] 31 mg/dL High 7-17 [facility] Comment on above: Performed By: #### L AB15 ####It Business Analyst: DANELLE MASON ([phone])[facility])[address] [place] [address] BLOOD TYPE AND SCREEN GELon 02-18-2024 ABO GROUPING A Normal [facility] Comment on above: Performed By: #### L [id number] ####It Business Analyst: DANELLE MASON ([phone])[facility] ([facility])[address] [place] [address] RH TYPE IN BLOOD Positive Normal [facility] Comment on above: Performed By: #### L [id number] ####It Business Analyst: DANELLE MASON ([phone])[facility] ([facility])[address] [place] [address] CBC (HEMOGRAM)on 02-18-2024 Erythrocyte distribution width (RBC) [Ratio] 15.1 % High 11.5-15.0 [facility] Comment on above: Performed By: #### L [id number] ####It Business Analyst: DANELLE MASON ([phone])[facility])[address] [place] [address] Hematocrit (Bld) [Volume fraction] 21.9 % Low 35.0-47.0 [facility] Comment on above: Performed By: #### L [id number] ####It Business Analyst: DANELLE MASON ([phone])[facility])[address] [place] [place] [address] Hemoglobin (Bld) [Mass/Vol] 6.9 g/dL Critically low 11.7-16.0 [facility] Comment on above: Performed By: #### L AB294 ####It Business Analyst: DANELLE MASON ([phone])[facility])[address] [place] [address] MCH (RBC) [Entitic mass] 28.6 pg Normal 26.0-34.0 [facility] Comment on above: Performed By: #### L [id number] ####It Business Analyst: DANELLE MASON ([phone])[facility])[address] [place] [place] [address] MCHC 31.5 % Normal 30.5-36.0 [facility] Comment on above: Performed By: #### L AB294 ####It Business Analyst: DANELLE MASON ([phone])[facility])[address] [place] [address] MCV (RBC) [Entitic vol] 90.9 fL Normal 77.0-99.0 [facility] Comment on above: Performed By: #### L AB294 ####It Business Analyst: DANELLE MASON ([phone])[facility])[address] [place] [address] Platelet mean volume (Bld) [Entitic vol] 8.6 fL Low 9.0-12.7 [facility] Comment on above: Performed By: #### L AB294 ####It Business Analyst: DANELLE MASON ([phone])[facility])[address] [place] [place] [address] Platelets (Bld) [#/Vol] 275 10*3/uL Normal 140-440 [facility] Comment on above: Performed By: #### L AB294 ####It Business Analyst: DANELLE MASON ([phone])[facility])[address] [place] [address] RBC (Bld) [#/Vol] 2.41 10*6/uL Low 3.80-5.20 [facility] Comment on above: Performed By: #### L AB294 ####It Business Analyst: DANELLE MASON ([phone])[facility])[address] [place] [address] WBC (Bld) [#/Vol] 7.6 10*3/uL Normal 3.6-10.7 [facility] Comment on above: Performed By: #### L [id number] ####It Business Analyst: DANELLE MASON ([phone])[facility])[address] [place] [place] [address] IDNon 02-18-2024 IDN Normal [facility] Progress Noteon 02-18-2024 Progress Note Normal [facility] Progress Note Normal [facility] Progress Note Normal [facility] Progress Note Normal [facility] BASIC METABOLIC PANELon 01-30 Anion gap [Moles/Vol] 3 mmol/L Normal 3-13 [facility] Comment on above: Performed By: #### L AB15, [id number] ####It Business Analyst: DANELLE MASON ([phone])[facility])[address] [place] [place] [address] Calcium [Mass/Vol] 8.9 mg/dL Normal 8.4-10.4 [facility] Comment on above: Performed By: #### L AB15, [id number] ####It Business Analyst: DANELLE MASON ([phone])[facility])[address] [place] [address] [place] Chloride [Moles/Vol] 100 mmol/L Normal 98-107 [facility] Comment on above: Performed By: #### L AB15, [id number] ####It Business Analyst: DANELLE MASON ([phone])[facility])[address] [place] [address] [place] CO2 [Moles/Vol] 28 mmol/L Normal 22-30 [facility] Comment on above: Performed By: #### L AB15, [id number] ####It Business Analyst: DANELLE MASON ([phone])[facility] [place] [address] [place] Creatinine [Mass/Vol] 1.32 mg/dL High 0.52-1.04 [facility] Comment on above: Performed By: #### L AB15, [id number] ####It Business Analyst: DANELLE MASON ([phone])[facility])[address] [place] [address] [place] GLOMERULAR FILTRATION RATE ML/MIN/1.73 SQ M.PREDICTED 43.3 mL/min/1.73m*2 Low >60.0 [facility] Comment on above: Result Comment: Calc ulation based on the Chronic Kidney Disease Epidemiology Collaboration (CKD-EPI) equation refit without adjustment for race Performed By: #### L AB15, [id number] ####It Business Analyst: DANELLE MASON ([phone])[facility])[address] [place] [place] [address] Glucose [Mass/Vol] 104 mg/dL High 70-100 [facility] Comment on above: Performed By: #### L AB15, [id number] ####It Business Analyst: DANELLE MASON ([phone])[facility])[address] [place] [address] [place] Potassium [Moles/Vol] 4.1 mmol/L Normal 3.5-5.1 [facility] Comment on above: Performed By: #### L AB15, [id number] ####It Business Analyst: DANELLE MASON ([phone])[facility])[address] [place] [address] [place] Sodium [Moles/Vol] 131 mmol/L Low 135-145 [facility] Comment on above: Performed By: #### L AB15, [id number] ####It Business Analyst: DANELLE MASON ([phone])[facility])[address] [place] [address] [place] Urea nitrogen [Mass/Vol] 24 mg/dL High 7-17 [facility] Comment on above: Performed By: #### L AB15, [id number] ####It Business Analyst: DANELLE MASON ([phone])[facility])[address] [place] [address] CARECOORDon 02-17-2024 CARECOORD Normal [facility] CBC WITH AUTO DIFFERENTIALon 02-17-2024 Basophils (Bld) [#/Vol] 0.1 10*3/uL Normal 0.0-0.2 [facility] Comment on above: Performed By: #### L [id number] ####It Business Analyst: DANELLE MASON ([phone])[facility])[address] [place] [address] Basophils/100 WBC (Bld) 0.6 % Normal 0.0-2.0 [facility] Comment on above: Performed By: #### L [id number] ####It Business Analyst: DANELLE MASON ([phone])[facility])[address] [place] [address] Eosinophils (Bld) [#/Vol] 0.5 10*3/uL Normal 0.0-0.5 [facility] Comment on above: Performed By: #### L [id number] ####It Business Analyst: DANELLE MASON ([phone])[facility])[address] [place] [place] [address] Eosinophils/100 WBC (Bld) 5.9 % Normal 0.0-6.0 [facility] Comment on above: Performed By: #### L [id number] ####It Business Analyst: DANELLE MASON ([phone])[address] Erythrocyte distribution width (RBC) [Ratio] 15.3 % High 11.5-15.0 [facility] Comment on above: Performed By: #### L [id number] ####It Business Analyst: DANELLE MASON ([phone])[facility])[address] [place] [place] [address] Hematocrit (Bld) [Volume fraction] 21.8 % Low 35.0-47.0 [facility] Comment on above: Performed By: #### L [id number] ####It Business Analyst: DANELLE [phone])[facility])[address] [place] [place] [address] Hemoglobin (Bld) [Mass/Vol] 7.3 g/dL Low 11.7-16.0 [facility] Comment on above: Performed By: #### L [id number] ####It Business Analyst: DANELLE MASON ([phone])[facility])[address] [place] [address] IMMATURE GRANS % 0.6 % Normal 0.0-2.0 [facility] Comment on above: Performed By: #### L [id number] ####It Business Analyst: DANELLE MASON ([phone])[facility])[address] [place] [place] [address] IMMATURE GRANS ABSOLUTE 0.1 10*3/uL High <0.1 [facility] Comment on above: Performed By: #### L [id number] ####It Business Analyst: DANELLE MASON ([phone])[facility])[address] [place] [address] Lymphocytes (Bld) [#/Vol] 1.6 10*3/uL Normal 1.0-4.3 [facility] Comment on above: Performed By: #### L [id number] ####It Business Analyst: DANELLE MASON ([phone])[facility])[address] [place] [address] Lymphocytes/100 WBC (Bld) 19.5 % Normal 15.0-45.0 [facility] Comment on above: Performed By: #### L [id number] ####It Business Analyst: DANELLE MASON ([phone])[facility])[address] [place] [address] MCH (RBC) [Entitic mass] 29.9 pg Normal 26.0-34.0 [facility] Comment on above: Performed By: #### L [id number] ####It Business Analyst: DANELLE MASON ([phone])[facility])[address] [place] [place] [address] MCHC 33.5 % Normal 30.5-36.0 [facility] Comment on above: Performed By: #### L [id number] ####It Business Analyst: DANELLE MASON ([phone])[facility])[address] [place] [place] [address] MCV (RBC) [Entitic vol] 89.3 fL Normal 77.0-99.0 [facility] Comment on above: Performed By: #### L [id number] ####It Business Analyst: DANELLE MASON ([phone])[facility])[address] [place] [place] [address] Monocytes (Bld) [#/Vol] 1.2 10*3/uL High 0.0-0.9 [facility] Comment on above: Performed By: #### L [id number] ####It Business Analyst: DANELLE MASON ([phone])[facility])[address] [place] [place] [address] Monocytes/100 WBC (Bld) 14.4 % High 5.0-13.0 [facility] Comment on above: Performed By: #### L [id number] ####It Business Analyst: DANELLE MASON ([phone])[facility])[address] [place] [place] [address] NEUTROPHILS ABSOLUTE 4.8 10*3/uL Normal 1.8-7.5 [facility] Comment on above: Performed By: #### L [id number] ####It Business Analyst: DANELLE MASON ([phone])[facility])[address] [place] [place] [address] Neutrophils/100 WBC (Bld) 59.0 % Normal 38.0-82.0 [facility] Comment on above: Performed By: #### L [id number] ####It Business Analyst: DANELLE MASON ([phone])[facility])[address] [place] [address] NRBC 0.0 /100 WBCs Normal 0.0-2.0 [facility] Comment on above: Performed By: #### L [id number] ####It Business Analyst: DANELLE MASON ([phone])[facility])[address] [place] [place] [address] Platelet mean volume (Bld) [Entitic vol] 8.8 fL Low 9.0-12.7 [facility] Comment on above: Performed By: #### L [id number] ####It Business Analyst: DANELLE MASON ([phone])[facility])[address] [place] [address] Platelets (Bld) [#/Vol] 307 10*3/uL Normal 140-440 [facility] Comment on above: Performed By: #### L [id number] ####It Business Analyst: DANELLE MASON ([phone])[facility])[address] [place] [address] RBC (Bld) [#/Vol] 2.44 10*6/uL Low 3.80-5.20 [facility] Comment on above: Performed By: #### L [id number] ####It Business Analyst: DANELLE MASON ([phone])[facility])[address] [place] [place] [address] WBC (Bld) [#/Vol] 8.2 10*3/uL Normal 3.6-10.7 [facility] Comment on above: Performed By: #### L [id number] ####It Business Analyst: DANELLE MASON ([phone])[facility])[address] [place] [place] [address] IDNon 02-17-2024 IDN Normal [facility] MAGNESIUMon 02-17-2024 Magnesium [Mass/Vol] 2.0 mg/dL Normal 1.6-2.3 [facility] Comment on above: Performed By: #### L AB15, [id number] ####It Business Analyst: DANELLE MASON ([phone])[facility])[address] [place] [address] Progress Noteon 02-17-2024 Progress Note Normal [facility] Progress Note Normal [facility] Progress Note Normal [facility] Progress Note Normal [facility] Progress Note Normal [facility] BASIC METABOLIC PANELon 09- Anion gap [Moles/Vol] 8 mmol/L Normal 3-13 [facility] Comment on above: Performed By: #### L AB103, LAB15 ####It Business Analyst: DANELLE MASON ([phone])[facility])[address] [place] [address] Calcium [Mass/Vol] 9.2 mg/dL Normal 8.4-10.4 [facility] Comment on above: Performed By: #### L AB103, LAB15 ####It Business Analyst: DANELLE MASON ([phone])[facility])[address] [place] [address] Chloride [Moles/Vol] 97 mmol/L Low 98-107 [facility] Comment on above: Performed By: #### L AB103, LAB15 ####It Business Analyst: DANELLE MASON ([phone])[facility])[address] [place] [address] [place] CO2 [Moles/Vol] 22 mmol/L Normal 22-30 [facility] Comment on above: Performed By: #### L AB103, LAB15 ####It Business Analyst: DANELLE MASON ([phone])[facility])[address] [place] [place] [address] Creatinine [Mass/Vol] 2.11 mg/dL High 0.52-1.04 [facility] Comment on above: Performed By: #### L AB103, LAB15 ####It Business Analyst: DANELLE MASON ([phone])[facility])[address] [place] [address] [place] GLOMERULAR FILTRATION RATE ML/MIN/1.73 SQ M.PREDICTED 24.6 mL/min/1.73m*2 Low >60.0 [facility] Comment on above: Result Comment: Calc ulation based on the Chronic Kidney Disease Epidemiology Collaboration (CKD-EPI) equation refit without adjustment for race Performed By: #### L AB103, LAB15 ####It Business Analyst: DANELLE MASON ([phone])[facility])[address] [place] [address] Glucose [Mass/Vol] 166 mg/dL High 70-100 [facility] Comment on above: Performed By: #### L AB103, LAB15 ####It Business Analyst: DANELLE MASON ([phone])[facility])[address] [place] [place] [address] Potassium [Moles/Vol] 4.6 mmol/L Normal 3.5-5.1 [facility] Comment on above: Performed By: #### L AB103, LAB15 ####It Business Analyst: DANELLE MASON ([phone])[facility] [place] [place] [address] Sodium [Moles/Vol] 127 mmol/L Low 135-145 [facility] Comment on above: Performed By: #### L AB103, LAB15 ####It Business Analyst: DANELLE MASON ([phone])[facility])[address] [place] [address] Urea nitrogen [Mass/Vol] 47 mg/dL High 7-17 [facility] Comment on above: Performed By: #### L AB103, LAB15 ####It Business Analyst: DANELLE MASON ([phone])[facility])[address] [place] [address] [employer] 02-16-2024 [employer] Auth pending to [facility]. Normal [facility] CBC (HEMOGRAM)on 02-16-2024 Erythrocyte distribution width (RBC) [Ratio] 15.4 % High 11.5-15.0 [facility] Comment on above: Performed By: #### L [id number] ####It Business Analyst: DANELLE MASON ([phone])[facility])[address] [place] [place] [address] Hematocrit (Bld) [Volume fraction] 26.9 % Low 35.0-47.0 [facility] Comment on above: Performed By: #### L AB294 ####It Business Analyst: DANELLE MASON ([phone])[facility])[address] [place] [place] [address] Hemoglobin (Bld) [Mass/Vol] 8.9 g/dL Low 11.7-16.0 [facility] Comment on above: Performed By: #### L AB294 ####It Business Analyst: DANELLE MASON ([phone])[facility])[address] [place] [place] [address] MCH (RBC) [Entitic mass] 29.7 pg Normal 26.0-34.0 [facility] Comment on above: Performed By: #### L AB294 ####It Business Analyst: DANELLE MASON ([phone])[facility])[address] [place] [address] MCHC 33.1 % Normal 30.5-36.0 [facility] Comment on above: Performed By: #### L AB294 ####It Business Analyst: DANELLE MASON ([phone])[facility])[address] [place] [place] [address] MCV (RBC) [Entitic vol] 89.7 fL Normal 77.0-99.0 [facility] [place] [facility] Comment on above: Performed By: #### L [id number] ####It Business Analyst: DANELLE MASON ([phone])[facility])[address] [place] [address] Platelet mean volume (Bld) [Entitic vol] 8.8 fL Low 9.0-12.7 [facility] Comment on above: Performed By: #### L [id number] ####It Business Analyst: DANELLE MASON ([phone])[facility])[address] [place] [address] Platelets (Bld) [#/Vol] 304 10*3/uL Normal 140-440 [facility] Comment on above: Performed By: #### L [id number] ####It Business Analyst: DANELLE MASON ([phone])[facility] ([facility])[address] [place] [address] RBC (Bld) [#/Vol] 3.00 10*6/uL Low 3.80-5.20 [facility] Comment on above: Performed By: #### L [id number] ####It Business Analyst: DANELLE MASON ([phone])[facility] ([facility])[address] [place] [address] WBC (Bld) [#/Vol] 8.2 10*3/uL Normal 3.6-10.7 [facility] Comment on above: Performed By: #### L [id number] ####It Business Analyst: DANELLE MASON ([phone])[facility])[address] [place] [address] IDNon 02-16-2024 IDN Normal [facility] MAGNESIUMon 02-16-2024 Magnesium [Mass/Vol] 2.2 mg/dL Normal 1.6-2.3 [facility] Comment on above: Performed By: #### L AB103, [id number] ####It Business Analyst: DANELLE MASON ([phone])[facility])[address] [place] [address] Progress Noteon 02-16-2024 Progress [facility] Normal [facility] Progress Note Normal [facility] Progress Note Normal [facility] BASIC METABOLIC PANELon 01-30 Anion gap [Moles/Vol] 7 mmol/L Normal 3-13 [facility] Comment on above: Performed By: #### L AB15, [id number] ####It Business Analyst: DANELLE MASON ([phone])[facility])[address] [place] [address] Calcium [Mass/Vol] 8.8 mg/dL Normal 8.4-10.4 [facility] Comment on above: Performed By: #### L AB15, [id number] ####It Business Analyst: DANELLE MASON ([phone])[facility] [place] [address] [place] Chloride [Moles/Vol] 96 mmol/L Low 98-107 [facility] Comment on above: Performed By: #### L AB15, [id number] ####It Business Analyst: DANELLE MASON ([phone])[facility] [place] [address] [place] CO2 [Moles/Vol] 23 mmol/L Normal 22-30 [facility] Comment on above: Performed By: #### L AB15, [id number] ####It Business Analyst: DANELLE MASON ([phone])[facility])[address] [place] [address] Creatinine [Mass/Vol] 2.28 mg/dL High 0.52-1.04 [facility] Comment on above: Performed By: #### L AB15, [id number] ####It Business Analyst: DANELLE MASON ([phone])[facility])[address] [place] [address] GLOMERULAR FILTRATION RATE ML/MIN/1.73 SQ M.PREDICTED 22.4 mL/min/1.73m*2 Low >60.0 [facility] Comment on above: Result Comment: Calc ulation based on the Chronic Kidney Disease Epidemiology Collaboration (CKD-EPI) equation refit without adjustment for raceORDER COMMENTS:Slightly Hemolyzed. Interpret K+ with caution. Performed By: #### L AB15, [id number] ####It Business Analyst: DANELLE MASON ([phone])[facility] [place] [address] [place] Glucose [Mass/Vol] 202 mg/dL High 70-100 [facility] Comment on above: Performed By: #### L AB15, [id number] ####It Business Analyst: DANELLE MASON ([phone])[facility])[address] [place] [address] [place] Potassium [Moles/Vol] 4.9 mmol/L Normal 3.5-5.1 [facility] Comment on above: Performed By: #### L AB15, [id number] ####It Business Analyst: DANELLE MASON ([phone])[facility])[address] [place] [address] Sodium [Moles/Vol] 126 mmol/L Low 135-145 [facility] Comment on above: Performed By: #### L AB15, [id number] ####It Business Analyst: DANELLE MASON ([phone])[facility])[address] [place] [address] Urea nitrogen [Mass/Vol] 46 mg/dL High 7-17 [facility] Comment on above: Performed By: #### L AB15, [id number] ####It Business Analyst: DANELLE MASON ([phone])[facility])[address] [place] [place] [address] CBC (HEMOGRAM)on 02-15-2024 Erythrocyte distribution width (RBC) [Ratio] 15.5 % High 11.5-15.0 [facility] Comment on above: Performed By: #### L [id number] ####It Business Analyst: DANELLE MASON ([phone])[address] Hematocrit (Bld) [Volume fraction] 23.5 % Low 35.0-47.0 [facility] Comment on above: Performed By: #### L [id number] ####It Business Analyst: DANELLE MASON ([phone])[facility])[address] [place] [place] [address] Hemoglobin (Bld) [Mass/Vol] 7.9 g/dL Low 11.7-16.0 [facility] Comment on above: Performed By: #### L AB294 ####It Business Analyst: DANELLE MASON ([phone])[facility])[address] [place] [place] [address] MCH (RBC) [Entitic mass] 30.2 pg Normal 26.0-34.0 [facility] Comment on above: Performed By: #### L [id number] ####It Business Analyst: DANELLE MASON ([phone])[facility])[address] [place] [place] [address] MCHC 33.6 % Normal 30.5-36.0 [facility] Comment on above: Performed By: #### L [id number] ####It Business Analyst: DANELLE MASON ([phone])[facility])[address] [place] [place] [address] MCV (RBC) [Entitic vol] 89.7 fL Normal 77.0-99.0 [facility] Comment on above: Performed By: #### L AB294 ####It Business Analyst: DANELLE MASON ([phone])[facility])[address] [place] [address] Platelet mean volume (Bld) [Entitic vol] 9.2 fL Normal 9.0-12.7 [facility] Comment on above: Performed By: #### L [id number] ####It Business Analyst: DANELLE MASON ([phone])[facility])[address] [place] [address] Platelets (Bld) [#/Vol] 341 10*3/uL Normal 140-440 [facility] Comment on above: Performed By: #### L [id number] ####It Business Analyst: DANELLE MASON ([phone])[facility])[address] [place] [place] [address] RBC (Bld) [#/Vol] 2.62 10*6/uL Low 3.80-5.20 [facility] Comment on above: Performed By: #### L [id number] ####It Business Analyst: DANELLE MASON ([phone])[facility])[address] [place] [place] [address] WBC (Bld) [#/Vol] 8.1 10*3/uL Normal 3.6-10.7 [facility] Comment on above: Performed By: #### L [id number] ####It Business Analyst: DANELLE MASON ([phone])[facility])[address] [place] [address] MAGNESIUMon 02-15-2024 Magnesium [Mass/Vol] 2.3 mg/dL Normal 1.6-2.3 [facility] Comment on above: Result Comment: DEE Marrero COMMENTS:Slightly Hemolyzed. Interpret Magnesium with caution. Performed By: #### L AB15, [id number] ####It Business Analyst: DANELLE MASON ([phone])[facility])[address] [place] [address] Progress Noteon 02-15-2024 Progress Note Normal [facility] Note Normal [facility] Progress Note Normal [facility] BASIC METABOLIC PANELon 01-30 Anion gap [Moles/Vol] 8 mmol/L Normal 3-13 [facility] Comment on above: Performed By: #### L AB15, [id number] ####It Business Analyst: DANELLE MASON ([phone])[facility])[address] [place] [place] [address] Calcium [Mass/Vol] 8.9 mg/dL Normal 8.4-10.4 [facility] Comment on above: Performed By: #### L AB15, [id number] ####It Business Analyst: DANELLE MASON ([phone])[facility])[address] [place] [address] [place] Chloride [Moles/Vol] 98 mmol/L Normal 98-107 [facility] Comment on above: Performed By: #### L AB15, [id number] ####It Business Analyst: DANELLE MASON ([phone])[facility])[address] [place] [address] [place] CO2 [Moles/Vol] 21 mmol/L Low 22-30 [facility] Comment on above: Performed By: #### L AB15, [id number] ####It Business Analyst: DANELLE MASON ([phone])[facility])[address] [place] [place] [address] Creatinine [Mass/Vol] 2.29 mg/dL High 0.52-1.04 [facility] Comment on above: Performed By: #### L AB15, [id number] ####It Business Analyst: DANELLE MASON ([phone])[facility])[address] [place] [place] [address] GLOMERULAR FILTRATION RATE ML/MIN/1.73 SQ M.PREDICTED 22.3 mL/min/1.73m*2 Low >60.0 [facility] Comment on above: Result Comment: Calc ulation based on the Chronic Kidney Disease Epidemiology Collaboration (CKD-EPI) equation refit without adjustment for race Performed By: #### L AB15, [id number] ####It Business Analyst: DANELLE MASON ([phone])[facility])[address] [place] [place] [address] Glucose [Mass/Vol] 207 mg/dL High 70-100 [facility] Comment on above: Performed By: #### L AB15, [id number] ####It Business Analyst: DANELLE MASON ([phone])[facility])[address] [place] [address] [place] Potassium [Moles/Vol] 4.1 mmol/L Normal 3.5-5.1 [facility] Comment on above: Performed By: #### L AB15, [id number] ####It Business Analyst: DANELLE MASON ([phone])[facility])[address] [place] [address] [place] Sodium [Moles/Vol] 127 mmol/L Low 135-145 [facility] Comment on above: Performed By: #### L AB15, [id number] ####It Business Analyst: DANELLE MASON ([phone])[facility])[address] [place] [address] [place] Urea nitrogen [Mass/Vol] 32 mg/dL High 7-17 [facility] Comment on above: Performed By: #### L AB15, [id number] ####It Business Analyst: DANELLE MASON ([phone])[facility])[address] [place] [address] CBC (HEMOGRAM)on 09-15-2024 Erythrocyte distribution width (RBC) [Ratio] 15.3 % High 11.5-15.0 [facility] Comment on above: Performed By: #### L [id number] ####It Business Analyst: DANELLE MASON ([phone])[facility])[address] [place] [place] [address] Hematocrit (Bld) [Volume fraction] 25.1 % Low 35.0-47.0 [facility] Comment on above: Performed By: #### L [id number] ####It Business Analyst: DANELLE MASON ([phone])[facility])[address] [place] [address] Hemoglobin (Bld) [Mass/Vol] 8.3 g/dL Low 11.7-16.0 [facility] Comment on above: Performed By: #### L [id number] ####It Business Analyst: DANELLE MASON ([phone])[facility])[address] [place] [place] [address] MCH (RBC) [Entitic mass] 29.6 pg Normal 26.0-34.0 [facility] Comment on above: Performed By: #### L [id number] ####It Business Analyst: DANELLE MASON ([phone])[facility])[address] [place] [place] [address] MCHC 33.1 % Normal 30.5-36.0 [facility] Comment on above: Performed By: #### L [id number] ####It Business Analyst: DANELLE MASON ([phone])[facility])[address] [place] [place] [address] MCV (RBC) [Entitic vol] 89.6 fL Normal 77.0-99.0 [facility] Comment on above: Performed By: #### L [id number] ####It Business Analyst: DANELLE MASON ([phone])[facility])[address] [place] [place] [address] Platelet mean volume (Bld) [Entitic vol] 9.1 fL Normal 9.0-12.7 [facility] Comment on above: Performed By: #### L [id number] ####It Business Analyst: DANELLE MASON ([phone])[facility])[address] [place] [place] [address] Platelets (Bld) [#/Vol] 330 10*3/uL Normal 140-440 [facility] Comment on above: Performed By: #### L [id number] ####It Business Analyst: DANLELE MASON ([phone])[facility])[address] [place] [place] [address] RBC (Bld) [#/Vol] 2.80 10*6/uL Low 3.80-5.20 [facility] Comment on above: Performed By: #### L [id number] ####It Business Analyst: DANELLE MASON ([phone])[facility])[address] [place] [place] [address] WBC (Bld) [#/Vol] 8.7 10*3/uL Normal 3.6-10.7 [facility] Comment on above: Performed By: #### L [id number] ####It Business Analyst: DANELLE MASON ([phone])[facility])[address] [place] [place] [address] MAGNESIUMon 02-14-2024 Magnesium [Mass/Vol] 2.1 mg/dL Normal 1.6-2.3 [facility] Comment on above: Performed By: #### L AB15, [id number] ####It Business Analyst: DANELLE MASON ([phone])[facility])[address] [place] [place] [address] Progress Noteon 02-14-2024 Progress Note Normal [facility] Progress Note Normal [facility] Progress Note Normal [facility] Progress Note Normal [facility] ANTI-XA LEVEL, LMWHon 2023 ANTI-XA TREATMENT INDICATION Therapeutic Normal [facility] Comment on above: Performed By: #### L [id number] ####It Business Analyst: DANELLE MASON ([phone])[facility])[address] [place] [address] ANTI-XA, LMWH/UFH Normal [facility] Comment on above: Result Comment: Janie ent is on Apixoban, which is an interferant for this test.Unable to perform test. RN was notified. tf Performed By: #### L [id number] ####It Business Analyst: DANELLE MASON ([phone])[facility])[address] [place] [place] [address] BASIC METABOLIC PANELon 01-30-2023 Anion gap [Moles/Vol] 6 mmol/L Normal 3-13 [facility] Comment on above: Performed By: #### L AB15, [id number] ####It Business Analyst: DANELLE MASON ([phone])[facility])[address] [place] [place] [address] Calcium [Mass/Vol] 8.7 mg/dL Normal 8.4-10.4 [facility] Comment on above: Performed By: #### L AB15, [id number] ####It Business Analyst: DANELLE MASON ([phone])[facility])[address] [place] [place] [address] Chloride [Moles/Vol] 96 mmol/L Low 98-107 [facility] Comment on above: Performed By: #### L AB15, [id number] ####It Business Analyst: DANELLE MASON ([phone])[facility])[address] [place] [place] [address] CO2 [Moles/Vol] 23 mmol/L Normal 22-30 [facility] Comment on above: Performed By: #### L AB15, [id number] ####It Business Analyst: DANELLE MASON ([phone])[facility])[address] [place] [place] [address] Creatinine [Mass/Vol] 3.35 mg/dL High 0.52-1.04 [facility] Comment on above: Performed By: #### L AB15, [id number] ####It Business Analyst: DANELLE MASON ([phone])[facility])[address] [place] [address] GLOMERULAR FILTRATION RATE ML/MIN/1.73 SQ M.PREDICTED 14.1 mL/min/1.73m*2 Low >60.0 [facility] Comment on above: Result Comment: Calc ulation based on the Chronic Kidney Disease Epidemiology Collaboration (CKD-EPI) equation refit without adjustment for race Performed By: #### L AB15, [id number] ####It Business Analyst: DANELLE MASON ([phone])[facility])[address] [place] [address] Glucose [Mass/Vol] 177 mg/dL High 70-100 [facility] Comment on above: Performed By: #### L AB15, [id number] ####It Business Analyst: DANELLE MASON ([phone])[facility])[address] [place] [place] [address] Potassium [Moles/Vol] 4.3 mmol/L Normal 3.5-5.1 [facility] Comment on above: Performed By: #### L AB15, [id number] ####It Business Analyst: DANELLE MASON ([phone])[facility])[address] [place] [place] [address] Sodium [Moles/Vol] 124 mmol/L Low 135-145 [facility] Comment on above: Performed By: #### L AB15, [id number] ####It Business Analyst: DANELLE MASON ([phone])[facility])[address] [place] [place] [address] Urea nitrogen [Mass/Vol] 39 mg/dL High 7-17 [facility] Comment on above: Performed By: #### L AB15, [id number] ####It Business Analyst: DANELLE MASON ([phone])[facility])[address] [place] [place] [address] CBC WITH AUTO DIFFERENTIALon 02-13-2024 Basophils (Bld) [#/Vol] 0.1 10*3/uL Normal 0.0-0.2 [facility] Comment on above: Performed By: #### L [id number] ####It Business Analyst: DANELLE MASON ([phone])[facility])[address] [place] [place] [address] Basophils/100 WBC (Bld) 0.7 % Normal 0.0-2.0 [facility] Comment on above: Performed By: #### L [id number] ####It Business Analyst: DANELLE MASON ([phone])[facility])[address] [place] [place] [address] Eosinophils (Bld) [#/Vol] 0.5 10*3/uL Normal 0.0-0.5 [facility] Comment on above: Performed By: #### L [id number] ####It Business Analyst: DANELLE MASON ([phone])[address] Eosinophils/100 WBC (Bld) 5.2 % Normal 0.0-6.0 [facility] Comment on above: Performed By: #### L [id number] ####It Business Analyst: DANELLE MASON ([phone])[facility])[address] [place] [place] [address] Erythrocyte distribution width (RBC) [Ratio] 15.3 % High 11.5-15.0 [facility] Comment on above: Performed By: #### L [id number] ####It Business Analyst: DANELLE MASON ([phone])[address] Hematocrit (Bld) [Volume fraction] 25.0 % Low 35.0-47.0 [facility] Comment on above: Performed By: #### L [id number] ####It Business Analyst: DANELLE MASON ([phone])[address] Hemoglobin (Bld) [Mass/Vol] 8.4 g/dL Low 11.7-16.0 [facility] Comment on above: Performed By: #### L [id number] ####It Business Analyst: DANELLE [phone])[facility])[address] [place] [place] [address] IMMATURE GRANS % 0.8 % Normal 0.0-2.0 [facility] Comment on above: Performed By: #### L [id number] ####It Business Analyst: DANELLE MASON ([phone])[facility])[address] [place] [place] [address] IMMATURE GRANS ABSOLUTE 0.1 10*3/uL High <0.1 [facility] Comment on above: Performed By: #### L [id number] ####It Business Analyst: DANELLE MASON ([phone])[facility])[address] [place] [place] [address] Lymphocytes (Bld) [#/Vol] 1.3 10*3/uL Normal 1.0-4.3 [facility] Comment on above: Performed By: #### L [id number] ####It Business Analyst: DANELLE MASON ([phone])[facility])[address] [place] [place] [address] Lymphocytes/100 WBC (Bld) 14.0 % Low 15.0-45.0 [facility] Comment on above: Performed By: #### L [id number] ####It Business Analyst: DANELLE MASON ([phone])[facility])[address] [place] [place] [address] MCH (RBC) [Entitic mass] 30.0 pg Normal 26.0-34.0 [facility] Comment on above: Performed By: #### L [id number] ####It Business Analyst: DANELLE MASON ([phone])[facility])[address] [place] [place] [address] MCHC 33.6 % Normal 30.5-36.0 [facility] Comment on above: Performed By: #### L [id number] ####It Business Analyst: DANELLE MASON ([phone])[facility])[address] [place] [place] [address] MCV (RBC) [Entitic vol] 89.3 fL Normal 77.0-99.0 [facility] Comment on above: Performed By: #### L [id number] ####It Business Analyst: DANELLE MASON ([phone])[facility])[address] [place] [place] [address] Monocytes (Bld) [#/Vol] 1.3 10*3/uL High 0.0-0.9 [facility] Comment on above: Performed By: #### L [id number] ####It Business Analyst: DANELLE MASON ([phone])[facility])[address] [place] [address] Monocytes/100 WBC (Bld) 13.7 % High 5.0-13.0 [facility] Comment on above: Performed By: #### L [id number] ####It Business Analyst: DANELLE MASON ([phone])[facility])[address] [place] [place] [address] NEUTROPHILS ABSOLUTE 6.1 10*3/uL Normal 1.8-7.5 [facility] Comment on above: Performed By: #### L [id number] ####It Business Analyst: DANELLE MASON ([phone])[facility])[address] [place] [address] Neutrophils/100 WBC (Bld) 65.6 % Normal 38.0-82.0 [facility] Comment on above: Performed By: #### L [id number] ####It Business Analyst: DANELLE MASON ([phone])[facility])[address] [place] [place] [address] NRBC 0.0 /100 WBCs Normal 0.0-2.0 [facility] Comment on above: Performed By: #### L [id number] ####It Business Analyst: DANELLE MASON ([phone])[facility])[address] [place] [place] [address] Platelet mean volume (Bld) [Entitic vol] 9.2 fL Normal 9.0-12.7 [facility] Comment on above: Performed By: #### L [id number] ####It Business Analyst: DANELLE MASON ([phone])[facility])[address] [place] [address] Platelets (Bld) [#/Vol] 313 10*3/uL Normal 140-440 [facility] Comment on above: Performed By: #### L [id number] ####It Business Analyst: DANELLE MASON ([phone])[facility])[address] [place] [place] [address] RBC (Bld) [#/Vol] 2.80 10*6/uL Low 3.80-5.20 [facility] Comment on above: Performed By: #### L [id number] ####It Business Analyst: DANELLE MASON ([phone])[facility])[address] [place] [address] WBC (Bld) [#/Vol] 9.2 10*3/uL Normal 3.6-10.7 [facility] Comment on above: Performed By: #### L [id number] ####It Business Analyst: DANELLE MASON ([phone])[facility])[address] [place] [place] [address] IDNon 02-13-2024 IDN Normal [facility] MAGNESIUMon 02-13-2024 Magnesium [Mass/Vol] 2.3 mg/dL Normal 1.6-2.3 [facility] Comment on above: Performed By: #### L [id number], [id number] ####It Business Analyst: DANELLE MASON ([phone])[facility])[address] [place] [place] [address] Nursing Noteon 02-13-2024 Nursing Note Normal [facility] Progress Noteon 02-13-2024 Progress Note Normal [facility] Progress Note Normal [facility] Progress Note Normal [facility] BASIC METABOLIC PANELon 01-30 Anion gap [Moles/Vol] 8 mmol/L Normal 3-13 [facility] [facility] Comment on above: Performed By: #### L AB103, LAB15, [id number] ####It Business Analyst: DANELLE MASON ([phone])[facility] [place] [address] Calcium [Mass/Vol] 8.7 mg/dL Normal 8.4-10.4 [facility] Comment on above: Performed By: #### L AB103, LAB15, [id number] ####It Business Analyst: DANELLE MASON ([phone])[facility])[address] [place] [address] [place] Chloride [Moles/Vol] 100 mmol/L Normal 98-107 [facility] Comment on above: Performed By: #### Soila AB103, LAB15, [id number] ####It Business Analyst: DANELLE MASON ([phone])[facility] ([facility])[address] [place] [address] CO2 [Moles/Vol] 22 mmol/L Normal 22-30 [facility] Comment on above: Performed By: #### Soila AB103, LAB15, [id number] ####It Business Analyst: DANELLE MASON ([phone])[facility] ([facility])[address] [place] [address] Creatinine [Mass/Vol] 2.84 mg/dL High 0.52-1.04 [facility] Comment on above: Performed By: #### Soila AB103, LAB15, [id number] ####It Business Analyst: DANELLE MASON ([phone])[facility] ([facility])[address] [place] [address] [place] GLOMERULAR FILTRATION RATE ML/MIN/1.73 SQ M.PREDICTED 17.2 mL/min/1.73m*2 Low >60.0 [facility] Comment on above: Result Comment: Calc ulation based on the Chronic Kidney Disease Epidemiology Collaboration (CKD-EPI) equation refit without adjustment for race Performed By: #### L AB103, LAB15, [id number] ####It Business Analyst: DANELLE MASON ([phone])[facility] ([facility])[address] [place] [address] [place] Glucose [Mass/Vol] 81 mg/dL Normal 70-100 [facility] Comment on above: Performed By: #### L AB103, LAB15, [id number] ####It Business Analyst: DANELLE MASON ([phone])[facility])[address] [place] [address] Potassium [Moles/Vol] 3.9 mmol/L Normal 3.5-5.1 [facility] Comment on above: Performed By: #### L AB103, LAB15, [id number] ####It Business Analyst: DANELLE MASON ([phone])[facility])[address] [place] [address] Sodium [Moles/Vol] 129 mmol/L Low 135-145 [facility] Comment on above: Performed By: #### L AB103, LAB15, [id number] ####It Business Analyst: DANELLE MASON ([phone])[facility])[address] [place] [address] Urea nitrogen [Mass/Vol] 24 mg/dL High 7-17 [facility] Comment on above: Performed By: #### L AB103, LAB15, [id number] ####It Business Analyst: DANELLE MASON ([phone])[facility])[address] [place] [address] CARECOORDon 02-12-2024 CARECOORD Normal [facility] CBC WITH AUTO DIFFERENTIALon 02-12-2024 Basophils (Bld) [#/Vol] 0.1 10*3/uL Normal 0.0-0.2 [facility] Comment on above: Performed By: #### L [id number] ####It Business Analyst: DANELLE MASON ([phone])[facility])[address] [place] [address] Basophils/100 WBC (Bld) 0.6 % Normal 0.0-2.0 [facility] Comment on above: Performed By: #### L [id number] ####It Business Analyst: DANELLE MASON ([phone])[facility])[address] [place] [address] Eosinophils (Bld) [#/Vol] 0.6 10*3/uL High 0.0-0.5 [facility] Comment on above: Performed By: #### L [id number] ####It Business Analyst: DANELLE MASON ([phone])[facility])[address] [place] [address] Eosinophils/100 WBC (Bld) 6.0 % Normal 0.0-6.0 [facility] Comment on above: Performed By: #### L [id number] ####It Business Analyst: DANELLE MASON ([phone])[facility])[address] [place] [place] [address] Erythrocyte distribution width (RBC) [Ratio] 15.8 % High 11.5-15.0 [facility] Comment on above: Performed By: #### L [id number] ####It Business Analyst: DANELLE MASON ([phone])[address] Hematocrit (Bld) [Volume fraction] 22.2 % Low 35.0-47.0 [facility] Comment on above: Performed By: #### L [id number] ####It Business Analyst: DANELLE MASON ([phone])[address] Hemoglobin (Bld) [Mass/Vol] 7.2 g/dL Low 11.7-16.0 [facility] Comment on above: Performed By: #### L [id number] ####It Business Analyst: DANELLE MASON ([phone])[facility])[address] [place] [place] [address] IMMATURE GRANS % 0.5 % Normal 0.0-2.0 [facility] Comment on above: Performed By: #### L [id number] ####It Business Analyst: DANELLE MASON ([phone])[facility])[address] [place] [place] [address] IMMATURE GRANS ABSOLUTE 0.1 10*3/uL High <0.1 [facility] Comment on above: Performed By: #### L [id number] ####It Business Analyst: DANELLE MASON ([phone])[facility])[address] [place] [place] [address] Lymphocytes (Bld) [#/Vol] 1.2 10*3/uL Normal 1.0-4.3 [facility] Comment on above: Performed By: #### L [id number] ####It Business Analyst: DANELLE MASON ([phone])[facility])[address] [place] [place] [address] Lymphocytes/100 WBC (Bld) 13.1 % Low 15.0-45.0 [facility] Comment on above: Performed By: #### L [id number] ####It Business Analyst: DANELLE MASON ([phone])[facility])[address] [place] [address] MCH (RBC) [Entitic mass] 28.8 pg Normal 26.0-34.0 [facility] Comment on above: Performed By: #### L [id number] ####It Business Analyst: DANELLE MASON ([phone])[facility])[address] [place] [place] [address] MCHC 32.4 % Normal 30.5-36.0 [facility] Comment on above: Performed By: #### L [id number] ####It Business Analyst: DANELLE MASON ([phone])[facility])[address] [place] [address] MCV (RBC) [Entitic vol] 88.8 fL Normal 77.0-99.0 [facility] Comment on above: Performed By: #### L [id number] ####It Business Analyst: DANELLE MASON ([phone])[facility])[address] [place] [address] Monocytes (Bld) [#/Vol] 1.4 10*3/uL High 0.0-0.9 [facility] Comment on above: Performed By: #### L [id number] ####It Business Analyst: DANELLE MASON ([phone])[facility])[address] [place] [place] [address] Monocytes/100 WBC (Bld) 14.4 % High 5.0-13.0 [facility] Comment on above: Performed By: #### L [id number] ####It Business Analyst: DANELLE MASON ([phone])[facility])[address] [place] [place] [address] NEUTROPHILS ABSOLUTE 6.1 10*3/uL Normal 1.8-7.5 [facility] Comment on above: Performed By: #### L [id number] ####It Business Analyst: DANELLE MASON ([phone])[facility])[address] [place] [address] Neutrophils/100 WBC (Bld) 65.4 % Normal 38.0-82.0 [facility] Comment on above: Performed By: #### L [id number] ####It Business Analyst: DANELLE MASON ([phone])[facility])[address] [place] [place] [address] NRBC 0.0 /100 WBCs Normal 0.0-2.0 [facility] Comment on above: Performed By: #### L [id number] ####It Business Analyst: DANELLE MASON ([phone])[facility])[address] [place] [address] Platelet mean volume (Bld) [Entitic vol] 9.2 fL Normal 9.0-12.7 [facility] Comment on above: Performed By: #### L [id number] ####It Business Analyst: DANELLE MASON ([phone])[facility] ([facility])[address] [place] [address] [place] Platelets (Bld) [#/Vol] 291 10*3/uL Normal 140-440 [facility] Comment on above: Performed By: #### L [id number] ####It Business Analyst: DANELLE MASON ([phone])[facility])[address] [place] [address] [place] RBC (Bld) [#/Vol] 2.50 10*6/uL Low 3.80-5.20 [facility] Comment on above: Performed By: #### L [id number] ####It Business Analyst: DANELLE MASON ([phone])[facility])[address] [place] [place] [address] WBC (Bld) [#/Vol] 9.4 10*3/uL Normal 3.6-10.7 [facility] Comment on above: Performed By: #### L [id number] ####It Business Analyst: DANELLE MASON ([phone])[facility])[address] [place] [place] [address] HEMOGLOBIN AND HEMATOCRIT, B LOODon 02-12-2024 Hematocrit (Bld) [Volume fraction] 25.5 % Low 35.0-47.0 [facility] Comment on above: Order Comment: Recom mend 1 hour post transfusion Performed By: #### L [id number] ####It Business Analyst: DANELLE MASON ([phone])[facility])[address] [place] [place] [address] Hemoglobin (Bld) [Mass/Vol] 8.4 g/dL Low 11.7-16.0 [facility] Comment on above: Order Comment: Recom mend 1 hour post transfusion Performed By: #### L [id number] ####It Business Analyst: DANELLE MASON ([phone])[facility])[address] [place] [place] [address] MAGNESIUMon 02-12-2024 Magnesium [Mass/Vol] 2.3 mg/dL Normal 1.6-2.3 [facility] Comment on above: Performed By: #### L AB103, LAB15, [id number] ####It Business Analyst: DANELLE MASON ([phone])[facility])[address] [place] [place] [address] PHOSPHORUSon 02-12-2024 Phosphate [Mass/Vol] 3.4 mg/dL Normal 2.5-4.5 [facility] Comment on above: Performed By: #### L AB103, LAB15, [id number] ####It Business Analyst: DANELLE MASON ([phone])[facility])[address] [place] [address] Progress Noteon 02-12-2024 Progress Note Normal [facility] Normal [facility] Progress Note Normal [facility] Progress [facility] Normal [facility] Progress Note [facility] BLOOD TYPE AND SCREEN GELon 02-11-2024 ABO GROUPING A Normal [facility] Comment on above: Performed By: #### L [id number] ####It Business Analyst: DANELLE MASON ([phone])[facility] ([facility])[address] [place] [address] RH TYPE IN BLOOD Positive Normal [facility] Comment on above: Performed By: #### L [id number] ####It Business Analyst: DANELLE MASON ([phone])[facility] ([facility])[address] [place] [place] [address] CARECOORDon 02-11-2024 [place] Notified by [employer] liaisonTelly offering a P2P offered prior to making a final denial decision. 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 Normal [facility] CBC WITH AUTO DIFFERENTIALon 02-11-2024 Basophils (Bld) [#/Vol] 0.1 10*3/uL Normal 0.0-0.2 [facility] Comment on above: Performed By: #### L [id number] ####It Business Analyst: DANELLE MASON ([phone])[facility])[address] [place] [address] Basophils/100 WBC (Bld) 0.4 % Normal 0.0-2.0 [facility] Comment on above: Performed By: #### L [id number] ####It Business Analyst: DANELLE MASON ([phone])[facility])[address] [place] [address] Eosinophils (Bld) [#/Vol] 0.5 10*3/uL Normal 0.0-0.5 [facility] Comment on above: Performed By: #### L [id number] ####It Business Analyst: DANELLE MASON ([phone])[address] Eosinophils/100 WBC (Bld) 4.1 % Normal 0.0-6.0 [facility] Comment on above: Performed By: #### L [id number] ####It Business Analyst: DANELLE MASON ([phone])[facility])[address] [place] [place] [address] Erythrocyte distribution width (RBC) [Ratio] 16.1 % High 11.5-15.0 [facility] Comment on above: Performed By: #### L [id number] ####It Business Analyst: DANELLE MASON ([phone])[address] Hematocrit (Bld) [Volume fraction] 19.1 % Low 35.0-47.0 [facility] Comment on above: Performed By: #### L [id number] ####It Business Analyst: DANELLE MASON ([phone])[address] Hemoglobin (Bld) [Mass/Vol] 6.2 g/dL Critically low 11.7-16.0 [facility] Comment on above: Performed By: #### L [id number] ####It Business Analyst: DANELLE MASON ([phone])[facility])[address] [place] [place] [address] IMMATURE GRANS % 0.7 % Normal 0.0-2.0 [facility] Comment on above: Performed By: #### L [id number] ####It Business Analyst: DANELLE MASON ([phone])[address] IMMATURE GRANS ABSOLUTE 0.1 10*3/uL High <0.1 [facility] Comment on above: Performed By: #### L [id number] ####It Business Analyst: DANELLE MASON ([phone])[facility])[address] [place] [place] [address] Lymphocytes (Bld) [#/Vol] 1.4 10*3/uL Normal 1.0-4.3 [facility] Comment on above: Performed By: #### L [id number] ####It Business Analyst: DANELLE MASON ([phone])[facility])[address] [place] [place] [address] Lymphocytes/100 WBC (Bld) 12.6 % Low 15.0-45.0 [facility] Comment on above: Performed By: #### L [id number] ####It Business Analyst: DANELLE MASON ([phone])[address] MCH (RBC) [Entitic mass] 28.7 pg Normal 26.0-34.0 [facility] Comment on above: Performed By: #### L [id number] ####It Business Analyst: DANELLE MASON ([phone])[facility])[address] [place] [place] [address] MCHC 32.5 % Normal 30.5-36.0 [facility] Comment on above: Performed By: #### L [id number] ####It Business Analyst: DANELLE MASON ([phone])[address] MCV (RBC) [Entitic vol] 88.4 fL Normal 77.0-99.0 [facility] Comment on above: Performed By: #### L [id number] ####It Business Analyst: DANELLE MASON ([phone])[facility])[address] [place] [place] [address] Monocytes (Bld) [#/Vol] 1.4 10*3/uL High 0.0-0.9 [facility] Comment on above: Performed By: #### L [id number] ####It Business Analyst: DANELLE MASON ([phone])[facility])[address] [place] [place] [address] Monocytes/100 WBC (Bld) 12.2 % Normal 5.0-13.0 [facility] Comment on above: Performed By: #### L [id number] ####It Business Analyst: DANELLE MASON ([phone])[facility])[address] [place] [place] [address] NEUTROPHILS ABSOLUTE 7.9 10*3/uL High 1.8-7.5 [facility] Comment on above: Performed By: #### L [id number] ####It Business Analyst: DANELLE MASON ([phone])[facility])[address] [place] [address] Neutrophils/100 WBC (Bld) 70.0 % Normal 38.0-82.0 [facility] Comment on above: Performed By: #### L [id number] ####It Business Analyst: DANELLE MASON ([phone])[facility])[address] [place] [place] [address] NRBC 0.0 /100 WBCs Normal 0.0-2.0 [facility] Comment on above: Performed By: #### L [id number] ####It Business Analyst: DANELLE MSAON ([phone])[facility])[address] [place] [place] [address] Platelet mean volume (Bld) [Entitic vol] 10.1 fL Normal 9.0-12.7 [facility] Comment on above: Performed By: #### L [id number] ####It Business Analyst: DANELLE MASON ([phone])[facility])[address] [place] [address] Platelets (Bld) [#/Vol] 268 10*3/uL Normal 140-440 [facility] Comment on above: Performed By: #### L [id number] ####It Business Analyst: DANELLE MASON ([phone])[facility])[address] [place] [place] [address] RBC (Bld) [#/Vol] 2.16 10*6/uL Low 3.80-5.20 [facility] Comment on above: Performed By: #### L [id number] ####It Business Analyst: DANELLE MASON ([phone])[facility])[address] [place] [place] [address] WBC (Bld) [#/Vol] 11.2 10*3/uL High 3.6-10.7 [facility] Comment on above: Performed By: #### L [id number] ####It Business Analyst: DANELLE MASON ([phone])[facility])[address] [place] [address] HEMOGLOBIN AND HEMATOCRIT, B LOODon 02-11-2024 Hematocrit (Bld) [Volume fraction] 23.3 % Low 35.0-47.0 [facility] Comment on above: Order Comment: Recom mend 1 hour post transfusion Performed By: #### L [id number] ####It Business Analyst: DANELLE MASON ([phone])[facility])[address] [place] [place] [address] Hemoglobin (Bld) [Mass/Vol] 7.7 g/dL Low 11.7-16.0 [facility] Comment on above: Order Comment: Recom mend 1 hour post transfusion Performed By: #### L [id number] ####It Business Analyst: DANELLE MASON ([phone])[facility])[address] [place] [place] [address] MAGNESIUMon 02-11-2024 Magnesium [Mass/Vol] 2.0 mg/dL Normal 1.6-2.3 [facility] Comment on above: Result Comment: DEE Marrero COMMENTS:Slightly Hemolyzed. Interpret Magnesium with caution. Performed By: #### L AB103, [id number] ####It Business Analyst: DANELLE MASON ([phone])[facility])[address] [place] [address] Nursing Noteon 02-11-2024 Nursing Note Normal [facility] PHOSPHORUSon 02-11-2024 Phosphate [Mass/Vol] 5.2 mg/dL High 2.5-4.5 [facility] Comment on above: Result Comment: ORDE R COMMENTS:Slightly Hemolyzed. Interpret Phosphorus with caution. Performed By: #### L AB103, [id number] ####It Business Analyst: DANELLE MASON ([phone])[facility])[address] [place] [address] Progress Noteon 02-11-2024 Progress Note Normal [facility] Progress Note Normal [facility] Progress Note Normal [facility] Progress Note Normal [facility] BASIC METABOLIC PANELon 01-30 Anion gap [Moles/Vol] 9 mmol/L Normal 3-13 [facility] Comment on above: Performed By: #### L AB103, [id number], LAB15 ####It Business Analyst: DANELLE MASON ([phone])[facility])[address] [place] [place] [address] Calcium [Mass/Vol] 9.3 mg/dL Normal 8.4-10.4 [facility] Comment on above: Performed By: #### L AB103, [id number], LAB15 ####It Business Analyst: DANELLE MASON ([phone])[facility])[address] [place] [place] [address] Chloride [Moles/Vol] 96 mmol/L Low 98-107 [facility] Comment on above: Performed By: #### L AB103, [id number], LAB15 ####It Business Analyst: DANELLE MASON ([phone])[facility])[address] [place] [place] [address] CO2 [Moles/Vol] 23 mmol/L Normal 22-30 [facility] Comment on above: Performed By: #### L AB103, [id number], LAB15 ####It Business Analyst: DANELLE MASON ([phone])[facility])[address] [place] [place] [address] Creatinine [Mass/Vol] 3.38 mg/dL High 0.52-1.04 [facility] Comment on above: Performed By: #### L AB103, [id number], LAB15 ####It Business Analyst: DANELLE MASON ([phone])[facility])[address] [place] [place] [address] GLOMERULAR FILTRATION RATE ML/MIN/1.73 SQ M.PREDICTED 14.0 mL/min/1.73m*2 Low >60.0 [facility] Comment on above: Result Comment: Calc ulation based on the Chronic Kidney Disease Epidemiology Collaboration (CKD-EPI) equation refit without adjustment for raceORDER COMMENTS:Slightly Hemolyzed. Interpret K+ with caution. Performed By: #### L AB103, [id number], LAB15 ####It Business Analyst: DANELLE MASON ([phone])[facility])[address] [place] [address] Glucose [Mass/Vol] 66 mg/dL Low 70-100 [facility] Comment on above: Performed By: #### L AB103, [id number], LAB15 ####It Business Analyst: DANELLE MASON ([phone])[facility])[address] [place] [address] Potassium [Moles/Vol] 4.2 mmol/L Normal 3.5-5.1 [facility] Comment on above: Performed By: #### L AB103, ZDV021, LAB15 ####It Business Analyst: DANELLE MASON ([phone])[facility])[address] [place] [place] [address] Sodium [Moles/Vol] 128 mmol/L Low 135-145 [facility] Comment on above: Performed By: #### L AB103, [id number], LAB15 ####It Business Analyst: DANELLE MASON ([phone])[facility])[address] [place] [address] [place] Urea nitrogen [Mass/Vol] 30 mg/dL High 7-17 [facility] Comment on above: Performed By: #### L AB103, [id number], LAB15 ####It Business Analyst: DANELLE MASON ([phone])[facility])[address] [place] [address] [place] CARECOORDon 09-11-2024 CARECOORD [facility] CBC (HEMOGRAM)on 02-10-2024 Erythrocyte distribution width (RBC) [Ratio] 16.2 % High 11.5-15.0 [facility] Comment on above: Performed By: #### L [id number] ####It Business Analyst: DANELLE MASON ([phone])[facility])[address] [place] [place] [address] Hematocrit (Bld) [Volume fraction] 22.2 % Low 35.0-47.0 [facility] Comment on above: Performed By: #### L AB294 ####It Business Analyst: DANELLE MASON ([phone])[facility])[address] [place] [place] [address] Hemoglobin (Bld) [Mass/Vol] 7.1 g/dL Low 11.7-16.0 [facility] Comment on above: Performed By: #### L [id number] ####It Business Analyst: DANELLE MASON ([id number])[facility])[address] [place] [place] [address] MCH (RBC) [Entitic mass] 28.4 pg Normal 26.0-34.0 [facility] Comment on above: Performed By: #### L [id number] ####It Business Analyst: DANELLE MASON ([phone])[facility])[address] [place] [place] [address] MCHC 32.0 % Normal 30.5-36.0 [facility] Comment on above: Performed By: #### L [id number] ####It Business Analyst: DANELLE MASON ([id number])[facility])[address] [place] [place] [address] MCV (RBC) [Entitic vol] 88.8 fL Normal 77.0-99.0 [facility] Comment on above: Performed By: #### L [id number] ####It Business Analyst: DANELLE MASON ([id number])[facility])[address] [place] [place] [address] Platelet mean volume (Bld) [Entitic vol] 9.4 fL Normal 9.0-12.7 [facility] Comment on above: Performed By: #### L [id number] ####It Business Analyst: DANELLE MASON ([id number])[facility])[address] [place] [place] [address] Platelets (Bld) [#/Vol] 310 10*3/uL Normal 140-440 [facility] Comment on above: Performed By: #### L [id number] ####It Business Analyst: DANELLE MASON ([id number])[facility])[address] [place] [place] [address] RBC (Bld) [#/Vol] 2.50 10*6/uL Low 3.80-5.20 [facility] Comment on above: Performed By: #### L [id number] ####It Business Analyst: DANELLE MASON ([phone])[facility])[address] [place] [place] [address] WBC (Bld) [#/Vol] 11.2 10*3/uL High 3.6-10.7 [facility] Comment on above: Performed By: #### L [id number] ####It Business Analyst: DANELLE MASON ([phone])[facility])[address] [place] [place] [address] CBC WITH AUTO DIFFERENTIALon 02-10-2024 Basophils (Bld) [#/Vol] 0.1 10*3/uL Normal 0.0-0.2 [facility] Comment on above: Performed By: #### L [id number] ####It Business Analyst: DANELLE MASON ([phone])[facility])[address] [place] [address] Basophils/100 WBC (Bld) 0.4 % Normal 0.0-2.0 [facility] Comment on above: Performed By: #### L [id number] ####It Business Analyst: DANELLE MASON ([phone])[facility])[address] [place] [address] Eosinophils (Bld) [#/Vol] 0.5 10*3/uL Normal 0.0-0.5 [facility] Comment on above: Performed By: #### L [id number] ####It Business Analyst: DANELLE MASON ([phone])[facility])[address] [place] [address] Eosinophils/100 WBC (Bld) 3.9 % Normal 0.0-6.0 [facility] Comment on above: Performed By: #### L [id number] ####It Business Analyst: DANELLE MASON ([phone])[facility])[address] [place] [address] Erythrocyte distribution width (RBC) [Ratio] 16.3 % High 11.5-15.0 [facility] Comment on above: Performed By: #### L [id number] ####It Business Analyst: DANELLE MASON ([phone])[address] Hematocrit (Bld) [Volume fraction] 26.3 % Low 35.0-47.0 [facility] Comment on above: Performed By: #### L [id number] ####It Business Analyst: DANELLE MASON ([phone])[address] Hemoglobin (Bld) [Mass/Vol] 8.6 g/dL Low 11.7-16.0 [facility] Comment on above: Performed By: #### L [id number] ####It Business Analyst: DANELLE MASON ([phone])[facility])[address] [place] [address] IMMATURE GRANS % 0.5 % Normal 0.0-2.0 [facility] Comment on above: Performed By: #### L [id number] ####It Business Analyst: DANELLE MASON ([phone])[address] IMMATURE GRANS ABSOLUTE 0.1 10*3/uL High <0.1 [facility] Comment on above: Performed By: #### L [id number] ####It Business Analyst: DANELLE MASON ([phone])[facility])[address] [place] [address] Lymphocytes (Bld) [#/Vol] 1.6 10*3/uL Normal 1.0-4.3 [facility] Comment on above: Performed By: #### L [id number] ####It Business Analyst: DANELLE MASON ([phone])[facility])[address] [place] [address] Lymphocytes/100 WBC (Bld) 12.8 % Low 15.0-45.0 [facility] Comment on above: Performed By: #### L [id number] ####It Business Analyst: DANELLE MASON ([phone])[facility])[address] [place] [address] MCH (RBC) [Entitic mass] 29.3 pg Normal 26.0-34.0 [facility] Comment on above: Performed By: #### L [id number] ####It Business Analyst: DANELLE MASON ([phone])[facility])[address] [place] [place] [address] MCHC 32.7 % Normal 30.5-36.0 [facility] Comment on above: Performed By: #### L [id number] ####It Business Analyst: DANELLE MASON ([phone])[facility])[address] [place] [address] MCV (RBC) [Entitic vol] 89.5 fL Normal 77.0-99.0 [facility] Comment on above: Performed By: #### L [id number] ####It Business Analyst: DANELLE MASON ([phone])[facility])[address] [place] [address] Monocytes (Bld) [#/Vol] 1.5 10*3/uL High 0.0-0.9 [facility] Comment on above: Performed By: #### L [id number] ####It Business Analyst: DANELLE MASON ([phone])[facility] [place] [address] Monocytes/100 WBC (Bld) 12.1 % Normal 5.0-13.0 [facility] Comment on above: Performed By: #### L [id number] ####It Business Analyst: DANELLE MASON ([phone])[facility])[address] [place] [address] NEUTROPHILS ABSOLUTE 8.5 10*3/uL High 1.8-7.5 [facility] Comment on above: Performed By: #### L [id number] ####It Business Analyst: DANELLE MASON ([phone])[facility])[address] [place] [address] Neutrophils/100 WBC (Bld) 70.3 % Normal 38.0-82.0 [facility] Comment on above: Performed By: #### L [id number] ####It Business Analyst: DANELLE MASON ([phone])[facility])[address] [place] [place] [address] NRBC 0.0 /100 WBCs Normal 0.0-2.0 [facility] Comment on above: Performed By: #### L [id number] ####It Business Analyst: DANELLE MASON ([phone])[facility])[address] [place] [place] [address] Platelet mean volume (Bld) [Entitic vol] 9.5 fL Normal 9.0-12.7 [facility] Comment on above: Performed By: #### L [id number] ####It Business Analyst: DANELLE MASON ([phone])[facility])[address] [place] [address] [place] Platelets (Bld) [#/Vol] 322 10*3/uL Normal 140-440 [facility] Comment on above: Performed By: #### L [id number] ####It Business Analyst: DANELLE MASON ([phone])[facility])[address] [place] [address] RBC (Bld) [#/Vol] 2.94 10*6/uL Low 3.80-5.20 [facility] Comment on above: Performed By: #### L [id number] ####It Business Analyst: DANELLE MASON ([phone])[facility])[address] [place] [place] [address] WBC (Bld) [#/Vol] 12.1 10*3/uL High 3.6-10.7 [facility] Comment on above: Performed By: #### L [id number] ####It Business Analyst: DANELLE MASON ([phone])[facility])[address] [place] [address] FIBRINOGENon 02-10-2024 FIBRINOGEN 450 mg/dL High 200-400 [facility] Comment on above: Performed By: #### L [id number], [id number] ####It Business Analyst: DANELLE MASON ([phone])[facility])[address] [place] [address] HEMOGLOBIN AND HEMATOCRIT, B LOODon 02-10-2024 Hematocrit (Bld) [Volume fraction] 22.0 % Low 35.0-47.0 [facility] Comment on above: Performed By: #### L [id number] ####It Business Analyst: DANELLE MASON ([phone])[facility])[address] [place] [place] [address] Hemoglobin (Bld) [Mass/Vol] 7.2 g/dL Low 11.7-16.0 [facility] Comment on above: Performed By: #### L [id number] ####It Business Analyst: DANELLE MASON ([phone])[facility])[address] [place] [place] [address] MAGNESIUMon 02-10-2024 Magnesium [Mass/Vol] 2.1 mg/dL Normal 1.6-2.3 [facility] Comment on above: Result Comment: DEE Marrero COMMENTS:Slightly Hemolyzed. Interpret Magnesium with caution. Performed By: #### L AB103, DCT240, LAB15 ####It Business Analyst: DANELLE MASON ([phone])[facility])[address] [place] [address] PHOSPHORUSon 02-10-2024 Phosphate [Mass/Vol] 4.1 mg/dL Normal 2.5-4.5 [facility] Comment on above: Result Comment: DOMINGUEZSteffany Elida COMMENTS:Slightly Hemolyzed. Interpret Phosphorus with caution. Performed By: #### L AB103, IWR015, LAB15 ####It Business Analyst: DANELLE MASON ([phone])[facility])[address] [place] [address] PROTIME AND APTTon aPTT Coag (Bld) [Time] 36.1 s High 20.0-30.5 [facility] Comment on above: Performed By: #### L AB314, [id number] ####It Business Analyst: DANELLE MASON ([phone])[address] INR Coag (PPP) [Relative time] 1.3 {INR} High 0.9-1.1 [facility] Comment on above: Result Comment: Blaine mmended Anticoagulant Therapy: SEE BELOW----- INR of 2.0 - 3.0 : - Prophylaxis of Venous Thrombosis (high-risk surgery) - Treatment of Venous Thrombosis - Treatment of Pulmonary Embolism (Includes tissue heart valves, Acute Myocardial Infarction to prevent systemic embolism, Valvular Heart Disease, and Atrial Fibrillation)----- INR of 2.5 - 3.5 : - Mechanical Prosthetic Valves (high risk) - If oral anticoagulant therapy is used to prevent Myocardial Infarction Performed By: #### L AB314, [id number] ####It Business Analyst: DANELLE MASON ([phone])[facility])[address] [place] [place] [address] PT Coag (PPP) [Time] 14.3 s High 9.0-12.0 [facility] Comment on above: Performed By: #### L AB314, [id number] ####It Business Analyst: DANELLE MASON ([phone])[facility])[address] [place] [address] Progress Noteon 02-10-2024 Progress Note Normal [facility] Progress Note Normal [facility] Progress Note Normal [facility] Progress Note PHYSICAL THERAPY [facility] Name/MRN: Zoraida Pires ([id number]) Date: 02/10/2024 PT re-eval attempted. Breakfast tray arrived just as PT was starting and patient requested to hold until after eating. Gladys De La Cruz, PT Normal [facility] Progress Note Normal [facility] BASIC METABOLIC PANELon 01-30 Anion gap [Moles/Vol] 15 mmol/L High 3-13 [facility] Comment on above: Performed By: #### L AB113, LAB15, [id number] ####It Business Analyst: DANELLE MASON ([phone])[facility])[address] [place] [address] Calcium [Mass/Vol] 9.7 mg/dL Normal 8.4-10.4 [facility] Comment on above: Performed By: #### L AB113, LAB15, [id number] ####It Business Analyst: DANELLE MASON ([phone])[facility])[address] [place] [address] Chloride [Moles/Vol] 92 mmol/L Low 98-107 [facility] Comment on above: Performed By: #### L AB113, LAB15, [id number] ####It Business Analyst: DANELLE MASON ([phone])[facility])[address] [place] [address] [place] CO2 [Moles/Vol] 20 mmol/L Low 22-30 [facility] Comment on above: Performed By: #### L AB113, LAB15, [id number] ####It Business Analyst: DANELLE MASON ([phone])[facility])[address] [place] [address] Creatinine [Mass/Vol] 5.72 mg/dL High 0.52-1.04 [facility] Comment on above: Performed By: #### L AB113, LAB15, [id number] ####It Business Analyst: DANELLE MASON ([phone])[facility])[address] [place] [address] GLOMERULAR FILTRATION RATE ML/MIN/1.73 SQ M.PREDICTED 7.4 mL/min/1.73m*2 Low >60.0 [facility] Comment on above: Result Comment: Calc ulation based on the Chronic Kidney Disease Epidemiology Collaboration (CKD-EPI) equation refit without adjustment for race Performed By: #### L AB113, LAB15, [id number] ####It Business Analyst: DANELLE MASON ([phone])[facility])[address] [place] [address] Glucose [Mass/Vol] 140 mg/dL High 70-100 [facility] Comment on above: Performed By: #### L AB113, LAB15, [id number] ####It Business Analyst: DANELLE MASON ([phone])[facility])[address] [place] [address] Potassium [Moles/Vol] 4.4 mmol/L Normal 3.5-5.1 [facility] Comment on above: Performed By: #### L AB113, LAB15, [id number] ####It Business Analyst: DANLELE MASON ([phone])[facility])[address] [place] [place] [address] Sodium [Moles/Vol] 127 mmol/L Low 135-145 [facility] Comment on above: Performed By: #### L AB113, LAB15, [id number] ####It Business Analyst: DANELLE MASON ([phone])[facility])[address] [place] [address] [place] Urea nitrogen [Mass/Vol] 59 mg/dL High 7-17 [facility] Comment on above: Performed By: #### L AB113, LAB15, [id number] ####It Business Analyst: DANELLE MASON ([phone])[facility])[address] [place] [address] [place] CARECOORDon 02-09-2024 CARECOORD Normal [facility] CBC WITH AUTO DIFFERENTIALon 02-09-2024 Basophils (Bld) [#/Vol] 0.1 10*3/uL Normal 0.0-0.2 [facility] Comment on above: Performed By: #### L [id number] ####It Business Analyst: DANELLE MASON ([phone])[facility])[address] [place] [address] Basophils/100 WBC (Bld) 0.6 % Normal 0.0-2.0 [facility] Comment on above: Performed By: #### L [id number] ####It Business Analyst: DANELLE MASON ([phone])[facility])[address] [place] [place] [address] Eosinophils (Bld) [#/Vol] 0.7 10*3/uL High 0.0-0.5 [facility] Comment on above: Performed By: #### L [id number] ####It Business Analyst: DANELLE MASON ([phone])[facility])[address] [place] [place] [address] Eosinophils/100 WBC (Bld) 5.6 % Normal 0.0-6.0 [facility] Comment on above: Performed By: #### L [id number] ####It Business Analyst: DANELLE MASON ([phone])[facility])[address] [place] [address] Erythrocyte distribution width (RBC) [Ratio] 16.6 % High 11.5-15.0 [facility] Comment on above: Performed By: #### L [id number] ####It Business Analyst: DANELLE MASON ([phone])[facility])[address] [place] [place] [address] Hematocrit (Bld) [Volume fraction] 27.9 % Low 35.0-47.0 [facility] Comment on above: Performed By: #### L [id number] ####It Business Analyst: DANELLE MASON ([phone])[facility])[address] [place] [place] [address] Hemoglobin (Bld) [Mass/Vol] 8.9 g/dL Low 11.7-16.0 [facility] Comment on above: Performed By: #### L [id number] ####It Business Analyst: DANELLE MASON ([phone])[facility])[address] [place] [place] [address] IMMATURE GRANS % 0.9 % Normal 0.0-2.0 [facility] Comment on above: Performed By: #### L [id number] ####It Business Analyst: DANELLE MASON ([phone])[facility])[address] [place] [address] IMMATURE GRANS ABSOLUTE 0.1 10*3/uL High <0.1 [facility] Comment on above: Performed By: #### L [id number] ####It Business Analyst: DANELLE MASON ([phone])[address] Lymphocytes (Bld) [#/Vol] 1.8 10*3/uL Normal 1.0-4.3 [facility] Comment on above: Performed By: #### L [id number] ####It Business Analyst: DANELLE MASON ([phone])[address] Lymphocytes/100 WBC (Bld) 14.8 % Low 15.0-45.0 [facility] Comment on above: Performed By: #### L [id number] ####It Business Analyst: DANELLE MASON ([phone])[address] MCH (RBC) [Entitic mass] 28.6 pg Normal 26.0-34.0 [facility] Comment on above: Performed By: #### L [id number] ####It Business Analyst: DANELLE MASON ([phone])[address] MCHC 31.9 % Normal 30.5-36.0 [facility] Comment on above: Performed By: #### L [id number] ####It Business Analyst: DANELLE MASON ([phone])[facility])[address] [place] [address] MCV (RBC) [Entitic vol] 89.7 fL Normal 77.0-99.0 [facility] Comment on above: Performed By: #### L [id number] ####It Business Analyst: DANELLE MASON ([phone])[facility])[address] [place] [address] Monocytes (Bld) [#/Vol] 1.2 10*3/uL High 0.0-0.9 [facility] Comment on above: Performed By: #### L [id number] ####It Business Analyst: DANELLE MASON ([phone])[facility])[address] [place] [address] Monocytes/100 WBC (Bld) 9.4 % Normal 5.0-13.0 [facility] Comment on above: Performed By: #### L [id number] ####It Business Analyst: DANELLE MASON ([phone])[facility])[address] [place] [address] NEUTROPHILS ABSOLUTE 8.4 10*3/uL High 1.8-7.5 [facility] Comment on above: Performed By: #### L [id number] ####It Business Analyst: DANELLE MASON ([phone])[facility])[address] [place] [address] Neutrophils/100 WBC (Bld) 68.7 % Normal 38.0-82.0 [facility] Comment on above: Performed By: #### L [id number] ####It Business Analyst: DANELLE MASON ([phone])[facility])[address] [place] [place] [address] NRBC 0.0 /100 WBCs Normal 0.0-2.0 [facility] Comment on above: Performed By: #### L [id number] ####It Business Analyst: DANELLE MASON ([phone])[facility])[address] [place] [place] [address] Platelet mean volume (Bld) [Entitic vol] 9.5 fL Normal 9.0-12.7 [facility] Comment on above: Performed By: #### L [id number] ####It Business Analyst: DANELLE MASON ([phone])[facility])[address] [place] [address] Platelets (Bld) [#/Vol] 336 10*3/uL Normal 140-440 [facility] Comment on above: Performed By: #### L [id number] ####It Business Analyst: DANELLE MASON ([phone])[facility])[address] [place] [address] RBC (Bld) [#/Vol] 3.11 10*6/uL Low 3.80-5.20 [facility] Comment on above: Performed By: #### L [id number] ####It Business Analyst: DANELLE MASON ([phone])[facility])[address] [place] [address] WBC (Bld) [#/Vol] 12.2 10*3/uL High 3.6-10.7 [facility] Comment on above: Performed By: #### L [id number] ####It Business Analyst: DANELLE MASON ([phone])[facility])[address] [place] [address] MAGNESIUMon 02-09-2024 Magnesium [Mass/Vol] 2.2 mg/dL Normal 1.6-2.3 [facility] Comment on above: Performed By: #### Soila AB113, LAB15, [id number] ####It Business Analyst: DANELLE MASON ([phone])[facility])[address] [place] [address] Nursing Noteon 02-09-2024 Nursing Note Normal [facility] PHOSPHORUSon 02-09-2024 Phosphate [Mass/Vol] 5.6 mg/dL High 2.5-4.5 [facility] Comment on above: Performed By: #### L AB113, LAB15, [id number] ####It Business Analyst: DANELLE MASON ([phone])[facility] ([facility])[address] Progress Noteon 02-09-2024 Progress Note Normal [facility] Progress Note Normal [facility] BASIC METABOLIC PANELon Anion gap [Moles/Vol] 14 mmol/L High 3-13 [facility] Comment on above: Performed By: #### L AB113, LAB15, [id number] ####It Business Analyst: DANELLE MASON ([phone])[facility] [place] [address] Calcium [Mass/Vol] 9.4 mg/dL Normal 8.4-10.4 [facility] Comment on above: Performed By: #### L AB113, LAB15, [id number] ####It Business Analyst: DANELLE MASON ([phone])[facility] [place] [address] [place] Chloride [Moles/Vol] 94 mmol/L Low 98-107 [facility] Comment on above: Performed By: #### L AB113, LAB15, [id number] ####It Business Analyst: DANELLE MASON ([phone])[facility] [place] [address] CO2 [Moles/Vol] 20 mmol/L Low 22-30 [facility] Comment on above: Performed By: #### L AB113, LAB15, [id number] ####It Business Analyst: ADNELLE MASON ([phone])[facility] [place] [address] [place] Creatinine [Mass/Vol] 4.15 mg/dL High 0.52-1.04 [facility] Comment on above: Performed By: #### L AB113, LAB15, [id number] ####It Business Analyst: DANELLE MASON ([phone])[facility] [place] [address] [place] GLOMERULAR FILTRATION RATE ML/MIN/1.73 SQ M.PREDICTED 10.9 mL/min/1.73m*2 Low >60.0 [facility] Comment on above: Result Comment: Calc ulation based on the Chronic Kidney Disease Epidemiology Collaboration (CKD-EPI) equation refit without adjustment for race Performed By: #### L AB113, LAB15, [id number] ####It Business Analyst: DANELLE MASON ([phone])[facility])[address] [place] [address] Glucose [Mass/Vol] 226 mg/dL High 70-100 [facility] Comment on above: Performed By: #### L AB113, LAB15, [id number] ####It Business Analyst: DANELLE MASON ([phone])[facility])[address] [place] [address] Potassium [Moles/Vol] 3.9 mmol/L Normal 3.5-5.1 [facility] Comment on above: Performed By: #### Soila AB113, LAB15, [id number] ####It Business Analyst: DANELLE MASON ([phone])[facility])[address] [place] [address] Sodium [Moles/Vol] 128 mmol/L Low 135-145 [facility] Comment on above: Performed By: #### Soila AB113, LAB15, [id number] ####It Business Analyst: DANELLE MASON ([phone])[facility])[address] [place] [address] Urea nitrogen [Mass/Vol] 42 mg/dL High 7-17 [facility] Comment on above: Performed By: #### L AB113, LAB15, [id number] ####It Business Analyst: DANELLE MASON ([phone])[facility])[address] [place] [address] [place] CARECOORDon 02-08-2024 CARECOORD Normal [facility] CBC WITH AUTO DIFFERENTIALon 02-08-2024 Basophils (Bld) [#/Vol] 0.1 10*3/uL Normal 0.0-0.2 [facility] Comment on above: Performed By: #### L [id number] ####It Business Analyst: DANELLE MASON ([phone])[facility])[address] [place] [address] Basophils/100 WBC (Bld) 0.6 % Normal 0.0-2.0 [facility] Comment on above: Performed By: #### L [id number] ####It Business Analyst: DANELLE MASON ([phone])[facility])[address] [place] [place] [address] Eosinophils (Bld) [#/Vol] 0.6 10*3/uL High 0.0-0.5 [facility] Comment on above: Performed By: #### L [id number] ####It Business Analyst: DANELLE MASON ([phone])[address] Eosinophils/100 WBC (Bld) 5.2 % Normal 0.0-6.0 [facility] Comment on above: Performed By: #### L [id number] ####It Business Analyst: DANELLE MASON ([phone])[facility])[address] [place] [address] Erythrocyte distribution width (RBC) [Ratio] 16.7 % High 11.5-15.0 [facility] Comment on above: Performed By: #### L [id number] ####It Business Analyst: DANELLE MASON ([phone])[address] Hematocrit (Bld) [Volume fraction] 26.2 % Low 35.0-47.0 [facility] Comment on above: Performed By: #### L [id number] ####It Business Analyst: DANELLE MASON ([id number])[facility])[address] [place] [address] Hemoglobin (Bld) [Mass/Vol] 8.3 g/dL Low 11.7-16.0 [facility] Comment on above: Performed By: #### L [id number] ####It Business Analyst: DANELLE MASON ([phone])[facility] [address] IMMATURE GRANS % 0.8 % Normal 0.0-2.0 [facility] Comment on above: Performed By: #### L [id number] ####It Business Analyst: DANELLE MASON ([phone])[facility])[address] [place] [address] IMMATURE GRANS ABSOLUTE 0.1 10*3/uL High <0.1 [facility] Comment on above: Performed By: #### L [id number] ####It Business Analyst: DANELLE MASON ([phone])[place] [address] [place] IPF 3 Normal [facility] Comment on above: Performed By: #### L [id number] ####It Business Analyst: DANELLE MASON ([phone])[address] Lymphocytes (Bld) [#/Vol] 1.7 10*3/uL Normal 1.0-4.3 [facility] Comment on above: Performed By: #### L [id number] ####It Business Analyst: DANELLE MASON ([id number])[address] Lymphocytes/100 WBC (Bld) 13.4 % Low 15.0-45.0 [facility] Comment on above: Performed By: #### L [id number] ####It Business Analyst: DANELLE MASON ([phone])[facility])[address] [place] [place] [address] MCH (RBC) [Entitic mass] 28.6 pg Normal 26.0-34.0 [facility] Comment on above: Performed By: #### L [id number] ####It Business Analyst: DANELLE MASON ([phone])[address] MCHC 31.7 % Normal 30.5-36.0 [facility] Comment on above: Performed By: #### L [id number] ####It Business Analyst: DANELLE MASON ([phone])[facility])[address] [place] [place] [address] MCV (RBC) [Entitic vol] 90.3 fL Normal 77.0-99.0 [facility] Comment on above: Performed By: #### L [id number] ####It Business Analyst: DANELLE MASON ([phone])[facility])[address] [place] [address] [place] Monocytes (Bld) [#/Vol] 1.3 10*3/uL High 0.0-0.9 [facility] Comment on above: Performed By: #### L [id number] ####It Business Analyst: DANELLE MASON ([phone])[facility])[address] [place] [address] Monocytes/100 WBC (Bld) 10.5 % Normal 5.0-13.0 [facility] Comment on above: Performed By: #### L [id number] ####It Business Analyst: DANELLE MASON ([phone])[facility])[address] [place] [address] [place] NEUTROPHILS ABSOLUTE 8.6 10*3/uL High 1.8-7.5 [facility] Comment on above: Performed By: #### L [id number] ####It Business Analyst: DANELLE MASON ([phone])[facility])[address] [place] [address] Neutrophils/100 WBC (Bld) 69.5 % Normal 38.0-82.0 [facility] Comment on above: Performed By: #### L [id number] ####It Business Analyst: DANELLE MASON ([phone])[facility])[address] [place] [address] [place] NRBC 0.2 /100 WBCs Normal 0.0-2.0 [facility] Comment on above: Performed By: #### L [id number] ####It Business Analyst: DANELLE MASON ([phone])[facility])[address] [place] [address] Platelet mean volume (Bld) [Entitic vol] 9.3 fL Normal 9.0-12.7 [facility] Comment on above: Performed By: #### L [id number] ####It Business Analyst: DANELLE MASON ([phone])[facility])[address] [place] [address] Platelets (Bld) [#/Vol] 372 10*3/uL Normal 140-440 [facility] Comment on above: Performed By: #### L [id number] ####It Business Analyst: DANELLE MASON ([phone])[facility])[address] [place] [address] RBC (Bld) [#/Vol] 2.90 10*6/uL Low 3.80-5.20 [facility] Comment on above: Performed By: #### L [id number] ####It Business Analyst: DANELLE MASON ([phone])[facility])[address] [place] [address] WBC (Bld) [#/Vol] 12.3 10*3/uL High 3.6-10.7 [facility] Comment on above: Performed By: #### L [id number] ####It Business Analyst: DANELLE MASON ([phone])[facility])[address] [place] [address] MAGNESIUMon 02-08-2024 Magnesium [Mass/Vol] 2.1 mg/dL Normal 1.6-2.3 [facility] Comment on above: Performed By: #### L AB113, LAB15, [id number] ####It Business Analyst: DANELLE MASON ([phone])[facility])[address] [place] [address] PHOSPHORUSon 02-08-2024 Phosphate [Mass/Vol] 5.0 mg/dL High 2.5-4.5 [facility] Comment on above: Performed By: #### L AB113, LAB15, [id number] ####It Business Analyst: DANELLE [phone])[facility])[address] [place] [address] Progress Noteon 02-08-2024 Progress Note Normal [facility] Progress Note Normal [facility] Progress Note Normal [facility] Progress Note Normal [facility] Progress Note Epicardial pacing wi re cut without difficulty per protocol. Patient and nurse educated on possible complications. Patient tolerated well. Will continue to monitor. Normal [facility] Progress [facility] XR CHEST 1 VIEWon 02-08-2024 XR CHEST 1 VIEW Normal [facility] System [facility] BASIC METABOLIC PANELon Anion gap [Moles/Vol] 10 mmol/L Normal 3-13 [facility] Comment on above: Performed By: #### L AB113, LAB15, [id number] ####It Business Analyst: DANELLE MASON ([phone])[facility])[address] [place] [address] Calcium [Mass/Vol] 9.3 mg/dL Normal 8.4-10.4 [facility] Comment on above: Performed By: #### L AB113, LAB15, [id number] ####It Business Analyst: DANELLE MASON ([phone])[facility])[address] [place] [address] Chloride [Moles/Vol] 97 mmol/L Low 98-107 [facility] Comment on above: Performed By: #### L AB113, LAB15, [id number] ####It Business Analyst: DANELLE MASON ([phone])[facility])[address] [place] [address] CO2 [Moles/Vol] 25 mmol/L Normal 22-30 [facility] Comment on above: Performed By: #### L AB113, LAB15, [id number] ####It Business Analyst: DANELLE MASON ([phone])[facility])[address] [place] [address] Creatinine [Mass/Vol] 2.31 mg/dL High 0.52-1.04 [facility] Comment on above: Performed By: #### L AB113, LAB15, [id number] ####It Business Analyst: DANELLE MASON ([phone])[facility])[address] [place] [address] GLOMERULAR FILTRATION RATE ML/MIN/1.73 SQ M.PREDICTED 22.1 mL/min/1.73m*2 Low >60.0 [facility] Comment on above: Result Comment: Calc ulation based on the Chronic Kidney Disease Epidemiology Collaboration (CKD-EPI) equation refit without adjustment for race Performed By: #### L AB113, LAB15, [id number] ####It Business Analyst: DANELLE MASON ([phone])[facility])[address] [place] [address] Glucose [Mass/Vol] 138 mg/dL High 70-100 [facility] Comment on above: Performed By: #### Soila AB113, LAB15, [id number] ####It Business Analyst: DANELLE MASON ([phone])[facility])[address] [place] [address] Potassium [Moles/Vol] 3.8 mmol/L Normal 3.5-5.1 [facility] Comment on above: Performed By: #### Soila ABPreeti, LAB15, [id number] ####It Business Analyst: DANELLE MASON ([phone])[facility])[address] [place] [address] Sodium [Moles/Vol] 132 mmol/L Low 135-145 [facility] Comment on above: Performed By: #### L AB113, LAB15, [id number] ####It Business Analyst: DANELLE MASON ([phone])[facility])[address] [place] [address] Urea nitrogen [Mass/Vol] 20 mg/dL High 7-17 [facility] Comment on above: Performed By: #### L AB113, LAB15, [id number] ####It Business Analyst: DANELLE MASON ([phone])[facility])[address] [place] [address] CBC WITH AUTO DIFFERENTIALon 02-07-2024 Basophils (Bld) [#/Vol] 0.1 10*3/uL Normal 0.0-0.2 [facility] Comment on above: Performed By: #### L [id number] ####It Business Analyst: DANELLE MASON ([phone])[facility])[address] [place] [address] Basophils/100 WBC (Bld) 0.5 % Normal 0.0-2.0 [facility] Comment on above: Performed By: #### L [id number] ####It Business Analyst: DANELLE MASON ([phone])[facility])[address] [place] [address] Eosinophils (Bld) [#/Vol] 0.2 10*3/uL Normal 0.0-0.5 [facility] Comment on above: Performed By: #### L [id number] ####It Business Analyst: DANELLE MASON ([phone])[facility])[address] [place] [address] Eosinophils/100 WBC (Bld) 2.0 % Normal 0.0-6.0 [facility] Comment on above: Performed By: #### L [id number] ####It Business Analyst: DANELLE MASON ([phone])[facility])[address] [place] [address] Erythrocyte distribution width (RBC) [Ratio] 16.6 % High 11.5-15.0 [facility] Comment on above: Performed By: #### L [id number] ####It Business Analyst: DANELLE MASON ([phone])[facility])[address] [place] [address] Hematocrit (Bld) [Volume fraction] 24.8 % Low 35.0-47.0 [facility] Comment on above: Performed By: #### L [id number] ####It Business Analyst: DANELLE MASON ([phone])[facility])[address] [place] [address] Hemoglobin (Bld) [Mass/Vol] 8.0 g/dL Low 11.7-16.0 [facility] Comment on above: Performed By: #### L [id number] ####It Business Analyst: DANELLE MASON ([phone])[facility])[address] [place] [place] [address] IMMATURE GRANS % 0.7 % Normal 0.0-2.0 [facility] Comment on above: Performed By: #### L [id number] ####It Business Analyst: DANELLE MASON ([phone])[facility])[address] [place] [address] IMMATURE GRANS ABSOLUTE 0.1 10*3/uL High <0.1 [facility] Comment on above: Performed By: #### L [id number] ####It Business Analyst: DANELLE MASON ([phone])[address] Lymphocytes (Bld) [#/Vol] 1.5 10*3/uL Normal 1.0-4.3 [facility] Comment on above: Performed By: #### L [id number] ####It Business Analyst: DANELLE MASON ([phone])[address] Lymphocytes/100 WBC (Bld) 13.7 % Low 15.0-45.0 [facility] Comment on above: Performed By: #### L [id number] ####It Business Analyst: DANELLE MASON ([phone])[address] MCH (RBC) [Entitic mass] 29.5 pg Normal 26.0-34.0 [facility] Comment on above: Performed By: #### L [id number] ####It Business Analyst: DANELLE MASON ([phone])[address] MCHC 32.3 % Normal 30.5-36.0 [facility] Comment on above: Performed By: #### L [id number] ####It Business Analyst: DANELLE MASON ([phone])[facility])[address] [place] [address] MCV (RBC) [Entitic vol] 91.5 fL Normal 77.0-99.0 [facility] Comment on above: Performed By: #### L [id number] ####It Business Analyst: DANELLE MASON ([phone])[facility])[address] [place] [address] Monocytes (Bld) [#/Vol] 1.1 10*3/uL High 0.0-0.9 [facility] Comment on above: Performed By: #### L [id number] ####It Business Analyst: DANELLE MASON ([phone])[facility])[address] [place] [address] Monocytes/100 WBC (Bld) 10.2 % Normal 5.0-13.0 [facility] Comment on above: Performed By: #### L [id number] ####It Business Analyst: DANELLE MASON ([phone])[facility])[address] [place] [address] NEUTROPHILS ABSOLUTE 7.9 10*3/uL High 1.8-7.5 [facility] Comment on above: Performed By: #### L [id number] ####It Business Analyst: DANELLE MASON ([phone])[facility])[address] [place] [address] Neutrophils/100 WBC (Bld) 72.9 % Normal 38.0-82.0 [facility] Comment on above: Performed By: #### L [id number] ####It Business Analyst: DANELLE MASON ([phone])[facility])[address] [place] [address] NRBC 0.0 /100 WBCs Normal 0.0-2.0 [facility] Comment on above: Performed By: #### L [id number] ####It Business Analyst: DANELLE MASON ([phone])[facility])[address] [place] [address] Platelet mean volume (Bld) [Entitic vol] 9.2 fL Normal 9.0-12.7 [facility] Comment on above: Performed By: #### L [id number] ####It Business Analyst: DANELLE MASON ([phone])[facility])[address] [place] [address] Platelets (Bld) [#/Vol] 328 10*3/uL Normal 140-440 [facility] Comment on above: Performed By: #### L [id number] ####It Business Analyst: DANELLE MASON ([phone])[facility])[address] [place] [address] RBC (Bld) [#/Vol] 2.71 10*6/uL Low 3.80-5.20 [facility] Comment on above: Performed By: #### L [id number] ####It Business Analyst: DANELLE MASON ([phone])[facility])[address] [place] [address] WBC (Bld) [#/Vol] 10.8 10*3/uL High 3.6-10.7 [facility] Comment on above: Performed By: #### L [id number] ####It Business Analyst: DANELLE MASON ([phone])[facility])[address] [place] [address] MAGNESIUMon 02-07-2024 Magnesium [Mass/Vol] 2.1 mg/dL Normal 1.6-2.3 [facility] Comment on above: Performed By: #### L AB113, LAB15, [id number] ####It Business Analyst: DANELLE MASON ([phone])[facility])[address] [place] [address] PHOSPHORUSon 02-07-2024 Phosphate [Mass/Vol] 3.5 mg/dL Normal 2.5-4.5 [facility] Comment on above: Performed By: #### L AB113, LAB15, [id number] ####It Business Analyst: DANELLE MASON ([phone])[facility])[address] Progress Noteon 02-07-2024 Progress Note Normal [facility] Progress Note Normal [facility] Progress Note Normal [facility] Progress Note Normal [facility] BASIC METABOLIC PANELon Anion gap [Moles/Vol] 15 mmol/L High 3-13 [facility] Comment on above: Performed By: #### L AB103, [id number], LAB15 ####It Business Analyst: DANELLE MASON ([phone])[facility])[address] [place] [address] Calcium [Mass/Vol] 9.5 mg/dL Normal 8.4-10.4 [facility] Comment on above: Performed By: #### L AB103, GHG890, LAB15 ####It Business Analyst: DANELLE MASON ([phone])[facility])[address] [place] [address] Chloride [Moles/Vol] 91 mmol/L Low 98-107 [facility] Comment on above: Performed By: #### L AB103, [id number], LAB15 ####It Business Analyst: DANELLE MASON ([phone])[facility])[address] [place] [address] CO2 [Moles/Vol] 21 mmol/L Low 22-30 [facility] Comment on above: Performed By: #### L AB103, GYS259, LAB15 ####It Business Analyst: DANELLE MASON ([phone])[facility])[address] [place] [address] Creatinine [Mass/Vol] 4.20 mg/dL High 0.52-1.04 [facility] Comment on above: Performed By: #### L AB103, ZTP375, LAB15 ####It Business Analyst: DANELLE MASON ([phone])[facility])[address] [place] [address] GLOMERULAR FILTRATION RATE ML/MIN/1.73 SQ M.PREDICTED 10.8 mL/min/1.73m*2 Low >60.0 [facility] Comment on above: Result Comment: Calc ulation based on the Chronic Kidney Disease Epidemiology Collaboration (CKD-EPI) equation refit without adjustment for race Performed By: #### L AB103, CDC113, LAB15 ####It Business Analyst: DANELLE MASON ([phone])[facility])[address] [place] [address] Glucose [Mass/Vol] 212 mg/dL High 70-100 [facility] Comment on above: Performed By: #### L AB103, IWL489, LAB15 ####It Business Analyst: DANELLE MASON ([phone])[facility])[address] [place] [address] Potassium [Moles/Vol] 4.3 mmol/L Normal 3.5-5.1 [facility] Comment on above: Performed By: #### Soila AB103, API690, LAB15 ####It Business Analyst: DANELLE MASON ([phone])[facility])[address] [place] [address] Sodium [Moles/Vol] 127 mmol/L Low 135-145 [facility] Comment on above: Performed By: #### L AB103, UKM617, LAB15 ####It Business Analyst: DANELLE MASON ([phone])[facility])[address] [place] [address] Urea nitrogen [Mass/Vol] 52 mg/dL High 7-17 [facility] Comment on above: Performed By: #### L AB103, GVY115, LAB15 ####It Business Analyst: DANELLE MASON ([phone])[facility])[address] [place] [address] CBC WITH AUTO DIFFERENTIALon 02-06-2024 Basophils (Bld) [#/Vol] 0.1 10*3/uL Normal 0.0-0.2 [facility] Comment on above: Performed By: #### L [id number] ####It Business Analyst: DANELLE MASON ([phone])[facility])[address] [place] [address] Basophils/100 WBC (Bld) 0.3 % Normal 0.0-2.0 [facility] Comment on above: Performed By: #### L [id number] ####It Business Analyst: DANELLE MASON ([phone])[facility])[address] [place] [address] Eosinophils (Bld) [#/Vol] 0.7 10*3/uL High 0.0-0.5 [facility] Comment on above: Performed By: #### L [id number] ####It Business Analyst: DANELLE MASON ([phone])[facility])[address] [place] [place] [address] Eosinophils/100 WBC (Bld) 5.1 % Normal 0.0-6.0 [facility] Comment on above: Performed By: #### L [id number] ####It Business Analyst: DANELLE MASON ([phone])[facility])[address] [place] [address] Erythrocyte distribution width (RBC) [Ratio] 16.6 % High 11.5-15.0 [facility] Comment on above: Performed By: #### L [id number] ####It Business Analyst: DANELLE MASON ([phone])[facility])[address] [place] [place] [address] Hematocrit (Bld) [Volume fraction] 26.7 % Low 35.0-47.0 [facility] Comment on above: Performed By: #### L [id number] ####It Business Analyst: DANELLE MASON ([phone])[facility])[address] [place] [address] Hemoglobin (Bld) [Mass/Vol] 8.4 g/dL Low 11.7-16.0 [facility] Comment on above: Performed By: #### L [id number] ####It Business Analyst: DANELLE MASON ([phone])[facility])[address] [place] [place] [address] IMMATURE GRANS % 1.6 % Normal 0.0-2.0 [facility] Comment on above: Performed By: #### L [id number] ####It Business Analyst: DANELLE MASON ([phone])[address] IMMATURE GRANS ABSOLUTE 0.2 10*3/uL High <0.1 [facility] Comment on above: Performed By: #### L [id number] ####It Business Analyst: DANELLE MASON ([phone])[facility])[address] [place] [place] [address] Lymphocytes (Bld) [#/Vol] 2.0 10*3/uL Normal 1.0-4.3 [facility] Comment on above: Performed By: #### L [id number] ####It Business Analyst: DANELLE MASON ([phone])[address] Lymphocytes/100 WBC (Bld) 13.8 % Low 15.0-45.0 [facility] Comment on above: Performed By: #### L [id number] ####It Business Analyst: DANELLE MASON ([phone])[facility])[address] [place] [address] MCH (RBC) [Entitic mass] 28.5 pg Normal 26.0-34.0 [facility] Comment on above: Performed By: #### L [id number] ####It Business Analyst: DANELLE MASON ([phone])[address] MCHC 31.5 % Normal 30.5-36.0 [facility] Comment on above: Performed By: #### L [id number] ####It Business Analyst: DANELLE MASON ([phone])[address] MCV (RBC) [Entitic vol] 90.5 fL Normal 77.0-99.0 [facility] Comment on above: Performed By: #### L [id number] ####It Business Analyst: DANELLE MASON ([phone])[facility])[address] [place] [place] [address] Monocytes (Bld) [#/Vol] 1.4 10*3/uL High 0.0-0.9 [facility] Comment on above: Performed By: #### L [id number] ####It Business Analyst: DANELLE MASON ([phone])[facility])[address] [place] [address] Monocytes/100 WBC (Bld) 9.7 % Normal 5.0-13.0 [facility] Comment on above: Performed By: #### L [id number] ####It Business Analyst: DANELLE MASON ([phone])[facility])[address] [place] [address] NEUTROPHILS ABSOLUTE 10.1 10*3/uL High 1.8-7.5 [facility] Comment on above: Performed By: #### L [id number] ####It Business Analyst: DANELLE MASON ([phone])[facility])[address] [place] [address] Neutrophils/100 WBC (Bld) 69.5 % Normal 38.0-82.0 [facility] Comment on above: Performed By: #### L [id number] ####It Business Analyst: DANELLE MASON ([phone])[facility])[address] [place] [place] [address] NRBC 0.0 /100 WBCs Normal 0.0-2.0 [facility] Comment on above: Performed By: #### L [id number] ####It Business Analyst: DANELLE MASON ([phone])[facility])[address] [place] [place] [address] Platelet mean volume (Bld) [Entitic vol] 9.2 fL Normal 9.0-12.7 [facility] Comment on above: Performed By: #### L [id number] ####It Business Analyst: DANELLE MASON ([phone])[facility])[address] [place] [address] [place] Platelets (Bld) [#/Vol] 372 10*3/uL Normal 140-440 [facility] Comment on above: Performed By: #### L [id number] ####It Business Analyst: DANELLE MASON ([phone])[facility] ([facility])[address] [place] [address] RBC (Bld) [#/Vol] 2.95 10*6/uL Low 3.80-5.20 [facility] Comment on above: Performed By: #### L [id number] ####It Business Analyst: DANELLE MASON ([phone])[facility] ([facility])[address] [place] [address] WBC (Bld) [#/Vol] 14.6 10*3/uL High 3.6-10.7 [facility] Comment on above: Performed By: #### L [id number] ####It Business Analyst: DANELLE MASON ([phone])[facility] ([facility])[address] [place] [place] [address] MAGNESIUMon 02-06-2024 Magnesium [Mass/Vol] 2.3 mg/dL Normal 1.6-2.3 [facility] Comment on above: Performed By: #### L [id number], [id number], [id number] ####It Business Analyst: DANELLE MASON ([phone])[facility])[address] [place] [address] Nursing Noteon 02-06-2024 Nursing Note Normal [facility] PHOSPHORUSon 02-06-2024 Phosphate [Mass/Vol] 4.7 mg/dL High 2.5-4.5 [facility] Comment on above: Performed By: #### L [id number], [id number], [id number] ####It Business Analyst: DANELLE MASON ([phone])[facility])[address] [place] [address] Progress Noteon 02-06-2024 Progress Note Normal [facility] Progress Note Normal [facility] Progress Note Normal [facility] Progress Note Normal [facility] XR CHEST 1 VIEWon 02-06-2024 XR CHEST 1 VIEW Normal [facility] BASIC METABOLIC PANELon Anion gap [Moles/Vol] 10 mmol/L Normal 3-13 [facility] Comment on above: Performed By: #### L AB15, [id number], [id number] ####It Business Analyst: DANELLE MASON ([phone])[facility] ([facility])[address] [place] [place] [address] Calcium [Mass/Vol] 9.2 mg/dL Normal 8.4-10.4 [facility] Comment on above: Performed By: #### L AB15, [id number], [id number] ####It Business Analyst: DANELLE MASON ([phone])[facility])[address] [place] [address] Chloride [Moles/Vol] 98 mmol/L Normal 98-107 [facility] Comment on above: Performed By: #### L AB15, [id number], [id number] ####It Business Analyst: DANELLE MASON ([phone])[facility])[address] [place] [address] CO2 [Moles/Vol] 20 mmol/L Low 22-30 [facility] Comment on above: Performed By: #### L AB15, [id number], [id number] ####It Business Analyst: DANELLE MASON ([phone])[facility])[address] [place] [address] Creatinine [Mass/Vol] 2.82 mg/dL High 0.52-1.04 [facility] Comment on above: Performed By: #### L AB15, [id number], [id number] ####It Business Analyst: DANELLE MASON ([phone])[facility])[address] [place] [address] GLOMERULAR FILTRATION RATE ML/MIN/1.73 SQ M.PREDICTED 17.4 mL/min/1.73m*2 Low >60.0 [facility] Comment on above: Result Comment: Calc ulation based on the Chronic Kidney Disease Epidemiology Collaboration (CKD-EPI) equation refit without adjustment for race Performed By: #### L AB15, [id number], [id number] ####It Business Analyst: DANELLE MASON ([phone])[facility])[address] [place] [address] Glucose [Mass/Vol] 256 mg/dL High 70-100 [facility] Comment on above: Performed By: #### L AB15, [id number], [id number] ####It Business Analyst: DANELLE MASON ([phone])[facility])[address] [place] [address] Potassium [Moles/Vol] 4.8 mmol/L Normal 3.5-5.1 [facility] Comment on above: Performed By: #### L AB15, [id number], [id number] ####It Business Analyst: DANELLE MASON ([phone])[facility])[address] [place] [address] Sodium [Moles/Vol] 128 mmol/L Low 135-145 [facility] Comment on above: Performed By: #### L AB15, [id number], [id number] ####It Business Analyst: DANELLE MASON ([phone])[facility])[address] [place] [address] Urea nitrogen [Mass/Vol] 38 mg/dL High 7-17 [facility] Comment on above: Performed By: #### L AB15, [id number], [id number] ####It Business Analyst: DANELLE MASON ([phone])[facility])[address] [place] [address] CALCIUM, IONIZEDon 4 CALCIUM IONIZED 4.60 mg/dL Normal 4.30-5.20 [facility] Comment on above: Performed By: #### L [id number] ####It Business Analyst: DANELLE MASON ([phone])[facility])[address] [place] [place] [address] PH, IONIZED CALCIUM 7.38 Normal 7.31-7.46 [facility] Comment on above: Performed By: #### L AB54 ####It Business Analyst: DANELLE MASON ([phone])[facility])[address] [place] [address] CARECOORDon 02-05-2024 CARECOORD Normal [facility] CBC WITH AUTO DIFFERENTIALon 02-05-2024 Basophils (Bld) [#/Vol] 0.1 10*3/uL Normal 0.0-0.2 [facility] Comment on above: Performed By: #### L [id number] ####It Business Analyst: DANELLE MASON ([phone])[facility])[address] [place] [address] Basophils/100 WBC (Bld) 0.5 % Normal 0.0-2.0 [facility] Comment on above: Performed By: #### L [id number] ####It Business Analyst: DANELLE MASON ([phone])[facility])[address] [place] [place] [address] Eosinophils (Bld) [#/Vol] 0.5 10*3/uL Normal 0.0-0.5 [facility] Comment on above: Performed By: #### L [id number] ####It Business Analyst: DANELLE MASON ([phone])[facility])[address] [place] [address] Eosinophils/100 WBC (Bld) 2.7 % Normal 0.0-6.0 [facility] Comment on above: Performed By: #### L [id number] ####It Business Analyst: DANELLE MASON ([phone])[facility])[address] [place] [place] [address] Erythrocyte distribution width (RBC) [Ratio] 16.8 % High 11.5-15.0 [facility] Comment on above: Performed By: #### L [id number] ####It Business Analyst: DANELLE MASON ([phone])[facility])[address] [place] [place] [address] Hematocrit (Bld) [Volume fraction] 30.3 % Low 35.0-47.0 [facility] Comment on above: Performed By: #### L [id number] ####It Business Analyst: DANELLE MASON ([phone])[facility])[address] [place] [address] Hemoglobin (Bld) [Mass/Vol] 9.6 g/dL Low 11.7-16.0 [facility] Comment on above: Performed By: #### L [id number] ####It Business Analyst: DANELLE MASON ([phone])[facility])[address] [place] [address] IMMATURE GRANS % 2.0 % Normal 0.0-2.0 [facility] Comment on above: Performed By: #### L [id number] ####It Business Analyst: DANELLE MASON ([phone])[facility])[address] [place] [address] IMMATURE GRANS ABSOLUTE 0.3 10*3/uL High <0.1 [facility] Comment on above: Performed By: #### L [id number] ####It Business Analyst: DANELLE MASON ([phone])[facility])[address] [place] [place] [address] Lymphocytes (Bld) [#/Vol] 2.1 10*3/uL Normal 1.0-4.3 [facility] Comment on above: Performed By: #### L [id number] ####It Business Analyst: DANELLE MASON ([phone])[facility])[address] [place] [place] [address] Lymphocytes/100 WBC (Bld) 12.3 % Low 15.0-45.0 [facility] Comment on above: Performed By: #### L [id number] ####It Business Analyst: DANELLE MASON ([phone])[facility])[address] [place] [address] MCH (RBC) [Entitic mass] 28.7 pg Normal 26.0-34.0 [facility] Comment on above: Performed By: #### L [id number] ####It Business Analyst: DANELLE MASON ([phone])[facility])[address] [place] [place] [address] MCHC 31.7 % Normal 30.5-36.0 [facility] Comment on above: Performed By: #### L [id number] ####It Business Analyst: DANELLE MASON ([phone])[facility])[address] [place] [address] MCV (RBC) [Entitic vol] 90.4 fL Normal 77.0-99.0 [facility] Comment on above: Performed By: #### L [id number] ####It Business Analyst: DANELLE AMSON ([phone])[facility])[address] [place] [place] [address] Monocytes (Bld) [#/Vol] 1.6 10*3/uL High 0.0-0.9 [facility] Comment on above: Performed By: #### L [id number] ####It Business Analyst: DANELLE MASON ([phone])[facility])[address] [place] [address] Monocytes/100 WBC (Bld) 9.3 % Normal 5.0-13.0 [facility] Comment on above: Performed By: #### L [id number] ####It Business Analyst: DANELLE MASON ([phone])[facility])[address] [place] [address] NEUTROPHILS ABSOLUTE 12.4 10*3/uL High 1.8-7.5 [facility] Comment on above: Performed By: #### L [id number] ####It Business Analyst: DANELLE MASON ([phone])[facility])[address] [place] [address] Neutrophils/100 WBC (Bld) 73.2 % Normal 38.0-82.0 [facility] Comment on above: Performed By: #### L [id number] ####It Business Analyst: DANELLE MASON ([phone])[facility])[address] [place] [place] [address] NRBC 0.0 /100 WBCs Normal 0.0-2.0 [facility] Comment on above: Performed By: #### L [id number] ####It Business Analyst: DANELLE MASON ([phone])[facility])[address] [place] [place] [address] Platelet mean volume (Bld) [Entitic vol] 9.1 fL Normal 9.0-12.7 [facility] Comment on above: Performed By: #### L [id number] ####It Business Analyst: DANELLE MASON ([phone])[facility])[address] [place] [address] Platelets (Bld) [#/Vol] 396 10*3/uL Normal 140-440 [facility] Comment on above: Performed By: #### L [id number] ####It Business Analyst: DANELLE MASON ([phone])[facility])[address] [place] [place] [address] RBC (Bld) [#/Vol] 3.35 10*6/uL Low 3.80-5.20 [facility] Comment on above: Performed By: #### L [id number] ####It Business Analyst: DANELLE MASON ([phone])[facility])[address] [place] [place] [address] WBC (Bld) [#/Vol] 16.9 10*3/uL High 3.6-10.7 [facility] Comment on above: Performed By: #### L [id number] ####It Business Analyst: DANELLE MAOSN ([phone])[facility])[address] [place] [address] MAGNESIUMon 02-05-2024 Magnesium [Mass/Vol] 2.3 mg/dL Normal 1.6-2.3 [facility] Comment on above: Performed By: #### L AB15, [id number], [id number] ####It Business Analyst: DANELLE MASON ([phone])[facility])[address] [place] [address] PHOSPHORUSon 02-05-2024 Phosphate [Mass/Vol] 4.7 mg/dL High 2.5-4.5 [facility] Comment on above: Performed By: #### L AB15, [id number], [id number] ####It Business Analyst: DANELLE MASON ([phone])[facility])[address] [place] [address] Progress Noteon 02-05-2024 Progress Note Normal [facility] Progress Note Normal [facility] Progress Note Normal [facility] Progress Note Normal [facility] XR CHEST 1 VIEWon 02-05-2024 XR CHEST 1 VIEW Normal [facility] BASIC METABOLIC PANELon Anion gap [Moles/Vol] 9 mmol/L Normal 3-13 [facility] Comment on above: Performed By: #### Soila AB15, [id number], [id number] ####It Business Analyst: DANELLE MASON ([phone])[facility])[address] [place] [place] [address] Calcium [Mass/Vol] 9.0 mg/dL Normal 8.4-10.4 [facility] Comment on above: Performed By: #### Soila FLOWER, [id number], [id number] ####It Business Analyst: DANELLE MASON ([phone])[facility])[address] [place] [address] Chloride [Moles/Vol] 93 mmol/L Low 98-107 [facility] Comment on above: Performed By: #### Soila ABTavares, [id number], [id number] ####It Business Analyst: DANELLE MASON ([phone])[facility])[address] [place] [address] [place] CO2 [Moles/Vol] 22 mmol/L Normal 22-30 [facility] Comment on above: Performed By: #### L AB15, [id number], [id number] ####It Business Analyst: DANELLE MASON ([phone])[facility])[address] [place] [address] Creatinine [Mass/Vol] 3.09 mg/dL High 0.52-1.04 [facility] Comment on above: Performed By: #### L AB15, [id number], [id number] ####It Business Analyst: DANELLE MASON ([phone])[facility])[address] [place] [address] GLOMERULAR FILTRATION RATE ML/MIN/1.73 SQ M.PREDICTED 15.6 mL/min/1.73m*2 Low >60.0 [facility] Comment on above: Result Comment: Calc ulation based on the Chronic Kidney Disease Epidemiology Collaboration (CKD-EPI) equation refit without adjustment for race Performed By: #### L AB15, [id number], JLP593 ####It Business Analyst: DANELLE MASON ([phone])[facility])[address] [place] [place] [address] Glucose [Mass/Vol] 526 mg/dL Critically high 70-100 [facility] Comment on above: Performed By: #### L AB15, MEW054, ZPZ064 ####It Business Analyst: DANELLE MASON ([phone])[facility])[address] [place] [address] Potassium [Moles/Vol] 5.6 mmol/L High 3.5-5.1 [facility] Comment on above: Performed By: #### L AB15, [id number], GYV741 ####It Business Analyst: DANELLE MASON ([phone])[facility])[address] [place] [place] [address] Sodium [Moles/Vol] 125 mmol/L Low 135-145 [facility] Comment on above: Performed By: #### L AB15, [id number], [id number] ####It Business Analyst: DANELLE MASON ([phone])[facility])[address] [place] [address] [place] Urea nitrogen [Mass/Vol] 64 mg/dL High 7-17 [facility] Comment on above: Performed By: #### L AB15, IHH706, [id number] ####It Business Analyst: DANELLE MASON ([phone])[facility])[address] [place] [address] [place] CALCIUM, IONIZEDon 09-05-202 4 CALCIUM IONIZED 4.80 mg/dL Normal 4.30-5.20 [facility] Comment on above: Performed By: #### L AB54 ####It Business Analyst: DANELLE MASON ([phone])[facility])[address] [place] [address] PH, IONIZED CALCIUM 7.32 Normal 7.31-7.46 [facility] Comment on above: Performed By: #### L AB54 ####It Business Analyst: DANELLE MASON ([phone])[facility])[address] [place] [place] [address] CBC WITH AUTO DIFFERENTIALon 02-04-2024 Erythrocyte distribution width (RBC) [Ratio] 17.0 % High 11.5-15.0 [facility] Comment on above: Performed By: #### L [id number], [id number] ####It Business Analyst: DANELLE MASON ([phone])[facility])[address] [place] [address] Hematocrit (Bld) [Volume fraction] 28.5 % Low 35.0-47.0 [facility] Comment on above: Performed By: #### L [id number], [id number] ####It Business Analyst: DANELLE MASON ([phone])[facility])[address] [place] [place] [address] Hemoglobin (Bld) [Mass/Vol] 9.5 g/dL Low 11.7-16.0 [facility] Comment on above: Performed By: #### L [id number], [id number] ####It Business Analyst: DANELLE MASON ([phone])[facility])[address] [place] [place] [address] MCH (RBC) [Entitic mass] 29.6 pg Normal 26.0-34.0 [facility] Comment on above: Performed By: #### L [id number], [id number] ####It Business Analyst: DANELLE MASON ([phone])[facility])[address] [place] [place] [address] MCHC 33.3 % Normal 30.5-36.0 [facility] Comment on above: Performed By: #### L [id number], [id number] ####It Business Analyst: DANELLE MASON ([phone])[facility])[address] [place] [place] [address] MCV (RBC) [Entitic vol] 88.8 fL Normal 77.0-99.0 [facility] Comment on above: Performed By: #### L [id number], [id number] ####It Business Analyst: DANELLE MASON ([phone])[facility])[address] [place] [place] [address] Platelet mean volume (Bld) [Entitic vol] 9.4 fL Normal 9.0-12.7 [facility] Comment on above: Performed By: #### L [id number], [id number] ####It Business Analyst: DANELLE MASON ([phone])[facility])[address] [place] [address] Platelets (Bld) [#/Vol] 370 10*3/uL Normal 140-440 [facility] Comment on above: Performed By: #### L [id number], [id number] ####It Business Analyst: DANELLE MASON ([phone])[facility])[address] [place] [place] [address] RBC (Bld) [#/Vol] 3.21 10*6/uL Low 3.80-5.20 [facility] Comment on above: Performed By: #### L [id number], [id number] ####It Business Analyst: DANELLE MASON ([phone])[facility])[address] [place] [place] [address] WBC (Bld) [#/Vol] 16.9 10*3/uL High 3.6-10.7 [facility] Comment on above: Performed By: #### L [id number], [id number] ####It Business Analyst: DANELLE MASON ([phone])[facility])[address] [place] [address] [place] MAGNESIUMon 02-04-2024 Magnesium [Mass/Vol] 2.3 mg/dL Normal 1.6-2.3 [facility] Comment on above: Performed By: #### L AB15, [id number], [id number] ####It Business Analyst: DANELLE MASON ([phone])[facility])[address] [place] [address] MANUAL DIFFERENTIAL (CELLAVI HOSSEIN)on 02-04-2024 ANISOCYTOSIS PRESENCE IN BLOOD BY LIGHT MICROSCOPY Slight Abnormal (none) [facility] Comment on above: Performed By: #### L [id number], [id number] ####It Business Analyst: DANELLE MASON ([phone])[facility])[address] [place] [address] BAND NEUTROPHILS TOTAL PER COUNTED LEUKOCYTES BY MANUAL COUNT Normal [facility] Comment on above: Performed By: #### L [id number], [id number] ####It Business Analyst: DANELLE MASON ([phone])[facility])[address] [place] [place] [address] BASOPHILS TOTAL PER COUNTED LEUKOCYTES BY MANUAL COUNT Normal [facility] Comment on above: Performed By: #### L [id number], [id number] ####It Business Analyst: DANELLE MASON ([phone])[facility])[address] [place] [place] [address] BLASTS TOTAL PER COUNTED LEUKOCYTES BY MANUAL COUNT Normal [facility] Comment on above: Performed By: #### L [id number], [id number] ####It Business Analyst: DANELLE MASON ([phone])[facility])[address] [place] [address] [place] EOSINOPHILS (10*3/UL) IN BLOOD-CELLAVISION 0.7 10*3/uL High 0.0-0.5 [facility] Comment on above: Performed By: #### L [id number], [id number] ####It Business Analyst: DANELLE MASON ([phone])[facility] ([facility])[address] [place] [address] [place] EOSINOPHILS TOTAL PER COUNTED LEUKOCYTES BY MANUAL COUNT 4 High 0-1 [facility] Comment on above: Performed By: #### L [id number], [id number] ####It Business Analyst: DANELLE MASON ([phone])[facility] [place] [address] [place] EOSINOPHILS/100 LEUKOCYTES IN BLOOD-CELLAVISION 4 % Normal 0-6 [facility] Comment on above: Performed By: #### L [id number], [id number] ####It Business Analyst: DANELLE MASON ([phone])[facility] [place] [address] HYPOCHROMIA (PRESENCE) IN BLOOD BY LIGHT MICROSCOPY Slight Abnormal (none) [facility] Comment on above: Performed By: #### L [id number], [id number] ####It Business Analyst: DANELLE MASON ([phone])[facility] [place] [address] [place] LYMPHOCYTES (10*3/UL) IN BLOOD-CELLAVISION 2.0 10*3/uL Normal 1.0-4.3 [facility] Comment on above: Performed By: #### L [id number], [id number] ####It Business Analyst: DANELLE MASON ([phone])[facility] [place] [address] [place] LYMPHOCYTES TOTAL PER COUNTED LEUKOCYTES BY MANUAL COUNT 12 Normal [facility] Comment on above: Performed By: #### L [id number], [id number] ####It Business Analyst: DANELLE MASON ([phone])[facility] [place] [address] [place] LYMPHOCYTES/100 LEUKOCYTES IN BLOOD-CELLAVISION 12 % Low 15-45 [facility] Comment on above: Performed By: #### L [id number], [id number] ####It Business Analyst: DANELLE MASON ([phone])[facility])[address] [place] [address] [place] METAMYELOCYTES TOTAL PER COUNTED LEUKOCYTES BY MANUAL COUNT Normal [facility] Comment on above: Performed By: #### L [id number], [id number] ####It Business Analyst: DANELLE MASON ([phone])[facility])[address] [place] [address] MICROCYTES (PRESENCE) IN BLOOD BY LIGHT MICROSCOPY Slight Abnormal (none) [facility] Comment on above: Performed By: #### L [id number], [id number] ####It Business Analyst: DANELLE MASON ([phone])[facility])[address] [place] [address] [place] MONOCYTES (10*3/UL) IN BLOOD-CELLAVISION 0.5 10*3/uL Normal 0.0-0.9 [facility] Comment on above: Performed By: #### L [id number], [id number] ####It Business Analyst: DANELLE MASON ([phone])[facility])[address] [place] [address] [place] MONOCYTES TOTAL PER COUNTED LEUKOCYTES BY MANUAL COUNT 3 Normal [facility] Comment on above: Performed By: #### L [id number], [id number] ####It Business Analyst: DANELLE MASON ([phone])[facility])[address] [place] [address] [place] MONOCYTES/100 LEUKOCYTES IN BLOOD-ALEJANDRO 3 % Low 5-13 [facility] Comment on above: Performed By: #### L [id number], [id number] ####It Business Analyst: DANELLE MASON ([phone])[facility] ([facility])[address] [place] [address] [place] MYELOCYTES (10*3/UL) IN BLOOD-CELLAVISION 0.2 10*3/uL High <=0.0 [facility] Comment on above: Performed By: #### L [id number], [id number] ####It Business Analyst: DANELLE MASON ([phone])[facility])[address] [place] [address] [place] MYELOCYTES COUNTED BY MANUAL COUNT 1 Normal [facility] Comment on above: Performed By: #### L [id number], [id number] ####It Business Analyst: DANELLE MASON ([phone])[facility])[address] [place] [address] [place] MYELOCYTES/100 LEUKOCYTES IN BLOOD-CELLAVISION 1 % High <=0 [facility] Comment on above: Performed By: #### L [id number], [id number] ####It Business Analyst: DANELLE MAOSN ([phone])[facility])[address] [place] [address] [place] NEUTROPHILS TOTAL PER COUNTED LEUKOCYTES BY MANUAL COUNT 79 Normal [facility] Comment on above: Performed By: #### L [id number], [id number] ####It Business Analyst: DANELLE MASON ([phone])[facility])[address] [place] [address] POIKILOCYTOSIS (PRESENCE) IN BLOOD BY LIGHT MICROSCOPY Slight Abnormal (none) [facility] Comment on above: Performed By: #### L [id number], [id number] ####It Business Analyst: DANELLE MASON ([phone])[facility])[address] [place] [address] [place] POLYCHROMASIA IN BLOOD BY LIGHT MICROSCOPY Rare Abnormal (none) [facility] Comment on above: Performed By: #### L [id number], [id number] ####It Business Analyst: DANELLE MASON ([phone])[facility])[address] [place] [address] [place] PROMYELOCYTES TOTAL PER COUNTED LEUKOCYTES BY MANUAL COUNT Normal [facility] Comment on above: Performed By: #### L [id number], [id number] ####It Business Analyst: DANELLE MASON ([phone])[facility])[address] [place] [address] [place] RBC MORPHOLOGY IN BLOOD abnormal Normal [facility] Comment on above: Performed By: #### L [id number], [id number] ####It Business Analyst: DANELLE MASON ([phone])[facility])[address] [place] [address] SEGMENTED NEUTROPHILS (10*3/UL) IN BLOOD-CELLAVISION 13.5 10*3/uL High 1.8-7.5 [facility] Comment on above: Performed By: #### L [id number], [id number] ####It Business Analyst: DANELLE MASON ([phone])[facility])[address] [place] [address] SEGMENTED NEUTROPHILS/100 LEUKOCYTES-CE 80 % Normal 38-82 [facility] Comment on above: Performed By: #### L [id number], [id number] ####It Business Analyst: DANELLE MASON ([phone])[facility])[address] [place] [address] STOMATOCYTES IN BLOOD BY LIGHT MICROSCOPY Slight Abnormal (none) [facility] Comment on above: Performed By: #### L [id number], [id number] ####It Business Analyst: DANELLE MASON ([phone])[facility])[address] [place] [address] UNCLASSIFIED CELLS TOTAL PER COUNTED LEUKOCYTES BY MANUAL COUNT Normal [facility] Comment on above: Performed By: #### L [id number], [id number] ####It Business Analyst: DANELLE MASON ([phone])[facility])[address] [place] [address] VARIANT LYMPHOCYTES TOTAL PER COUNTED LEUKOCYTES BY MANUAL COUNT Normal [facility] Comment on above: Performed By: #### L [id number], [id number] ####It Business Analyst: DANELLE MASON ([phone])[facility])[address] [place] [address] PHOSPHORUSon 02-04-2024 Phosphate [Mass/Vol] 5.3 mg/dL High 2.5-4.5 [facility] Comment on above: Performed By: #### L AB15, [id number], [id number] ####It Business Analyst: DANELLE MASON ([phone])[facility])[address] [place] [address] Progress Noteon 02-04-2024 Progress Note Normal [facility] Progress Note PHYSICAL THERAPY [facility] Name/MRN: Zoraida Pires ([id number]) Date: 02/04/2024 Pt currently receiving dialysis. Will re-attempt PT as schedule allows. Kendra Hurley, SALES COMMISSIONS ANALYST Normal [facility] Progress Note Normal [facility] Progress Note Normal [facility] Progress Note Normal [facility] XR CHEST 1 VIEWon 02-04-2024 XR CHEST 1 VIEW Normal [facility] BASIC METABOLIC PANELon Anion gap [Moles/Vol] 5 mmol/L Normal 3-13 [facility] Comment on above: Performed By: #### L AB15, [id number], [id number] ####It Business Analyst: DANELLE MASON ([phone])[facility])[address] [place] [address] Calcium [Mass/Vol] 9.2 mg/dL Normal 8.4-10.4 [facility] Comment on above: Performed By: #### L AB15, [id number], [id number] ####It Business Analyst: DANELLE MASON ([phone])[facility])[address] [place] [address] [place] Chloride [Moles/Vol] 100 mmol/L Normal 98-107 [facility] Comment on above: Performed By: #### L AB15, [id number], [id number] ####It Business Analyst: DANELLE MASON ([phone])[facility])[address] [place] [address] [place] CO2 [Moles/Vol] 27 mmol/L Normal 22-30 [facility] Comment on above: Performed By: #### L AB15, [id number], [id number] ####It Business Analyst: DANELLE MASON ([phone])[facility])[address] [place] [address] [place] Creatinine [Mass/Vol] 2.08 mg/dL High 0.52-1.04 [facility] Comment on above: Performed By: #### L AB15, [id number], [id number] ####It Business Analyst: DANELLE MASON ([phone])[facility])[address] [place] [address] GLOMERULAR FILTRATION RATE ML/MIN/1.73 SQ M.PREDICTED 25.1 mL/min/1.73m*2 Low >60.0 [facility] Comment on above: Result Comment: Calc ulation based on the Chronic Kidney Disease Epidemiology Collaboration (CKD-EPI) equation refit without adjustment for race Performed By: #### L AB15, [id number], [id number] ####It Business Analyst: DANELLE MASON ([phone])[facility])[address] [place] [address] Glucose [Mass/Vol] 169 mg/dL High 70-100 [facility] Comment on above: Performed By: #### Soila AB15, [id number], [id number] ####It Business Analyst: DANELLE MASON ([phone])[facility])[address] [place] [address] Potassium [Moles/Vol] 4.5 mmol/L Normal 3.5-5.1 [facility] Comment on above: Performed By: #### L AB15, [id number], LHC605 ####It Business Analyst: DANELLE MASON ([phone])[facility])[address] [place] [address] Sodium [Moles/Vol] 131 mmol/L Low 135-145 [facility] Comment on above: Performed By: #### L AB15, OSH425, RST736 ####It Business Analyst: DANELLE MASON ([phone])[facility])[address] [place] [address] [place] Urea nitrogen [Mass/Vol] 33 mg/dL High 7-17 [facility] Comment on above: Performed By: #### L AB15, QZS940, IMI395 ####It Business Analyst: DANELLE MASON ([phone])[facility])[address] [place] [address] [place] CALCIUM, IONIZEDon 4 CALCIUM IONIZED 4.80 mg/dL Normal 4.30-5.20 [facility] Comment on above: Performed By: #### L AB54 ####It Business Analyst: DANELLE MASON ([phone])[facility])[address] [place] [address] PH, IONIZED CALCIUM 7.37 Normal 7.31-7.46 [facility] Comment on above: Performed By: #### L AB54 ####It Business Analyst: DANELLE MASON ([phone])[facility])[address] [place] [address] CARECOORDon 02-03-2024 CAR[place]OORD Spoke with patient a t bedside to discuss PT recommendation of IPR. Patient would like to continue with previous discharge plan of [facility]. Auth to be initiated today. Normal [facility] CBC WITH AUTO DIFFERENTIALon 02-03-2024 Basophils (Bld) [#/Vol] 0.1 10*3/uL Normal 0.0-0.2 [facility] Comment on above: Performed By: #### L [id number] ####It Business Analyst: DANELLE MASON ([phone])[address] Basophils/100 WBC (Bld) 0.4 % Normal 0.0-2.0 [facility] Comment on above: Performed By: #### L [id number] ####It Business Analyst: DANELLE MASON ([phone])[facility])[address] [place] [place] [address] Eosinophils (Bld) [#/Vol] 0.3 10*3/uL Normal 0.0-0.5 [facility] Comment on above: Performed By: #### L [id number] ####It Business Analyst: DANELLE MASON ([phone])[address] Eosinophils/100 WBC (Bld) 2.0 % Normal 0.0-6.0 [facility] Comment on above: Performed By: #### L [id number] ####It Business Analyst: DANELLE MASON ([phone])[address] Erythrocyte distribution width (RBC) [Ratio] 17.1 % High 11.5-15.0 [facility] Comment on above: Performed By: #### L [id number] ####It Business Analyst: DANELLE MASON ([phone])[address] Hematocrit (Bld) [Volume fraction] 28.1 % Low 35.0-47.0 [facility] Comment on above: Performed By: #### L [id number] ####It Business Analyst: DANELLE MASON ([phone])[address] Hemoglobin (Bld) [Mass/Vol] 9.2 g/dL Low 11.7-16.0 [facility] Comment on above: Performed By: #### L [id number] ####It Business Analyst: DANELLE MASON ([phone])[address] IMMATURE GRANS % 1.4 % Normal 0.0-2.0 [facility] Comment on above: Performed By: #### L [id number] ####It Business Analyst: DANELLE MASON ([phone])[address] IMMATURE GRANS ABSOLUTE 0.2 10*3/uL High <0.1 [facility] Comment on above: Performed By: #### L [id number] ####It Business Analyst: DANELLE MASON ([phone])[address] Lymphocytes (Bld) [#/Vol] 2.1 10*3/uL Normal 1.0-4.3 [facility] Comment on above: Performed By: #### L [id number] ####It Business Analyst: DANELLE [phone])[facility])[address] [place] [address] Lymphocytes/100 WBC (Bld) 13.5 % Low 15.0-45.0 [facility] Comment on above: Performed By: #### L [id number] ####It Business Analyst: DANELLE MASON ([phone])[facility])[address] [place] [place] [address] MCH (RBC) [Entitic mass] 28.8 pg Normal 26.0-34.0 [facility] Comment on above: Performed By: #### L [id number] ####It Business Analyst: DANELLE MASON ([phone])[facility])[address] [place] [place] [address] MCHC 32.7 % Normal 30.5-36.0 [facility] Comment on above: Performed By: #### L [id number] ####It Business Analyst: DANELLE MASON ([phone])[facility])[address] [place] [place] [address] MCV (RBC) [Entitic vol] 87.8 fL Normal 77.0-99.0 [facility] Comment on above: Performed By: #### L [id number] ####It Business Analyst: DANELLE MASON ([phone])[facility])[address] [place] [place] [address] Monocytes (Bld) [#/Vol] 1.8 10*3/uL High 0.0-0.9 [facility] Comment on above: Performed By: #### L [id number] ####It Business Analyst: DANELLE MASON ([phone])[facility])[address] [place] [address] Monocytes/100 WBC (Bld) 11.7 % Normal 5.0-13.0 [facility] Comment on above: Performed By: #### L [id number] ####It Business Analyst: DANELLE MASON ([phone])[facility])[address] [place] [address] [place] NEUTROPHILS ABSOLUTE 10.8 10*3/uL High 1.8-7.5 [facility] Comment on above: Performed By: #### L [id number] ####It Business Analyst: DANELLE MASON ([phone])[facility])[address] [place] [address] Neutrophils/100 WBC (Bld) 71.0 % Normal 38.0-82.0 [facility] Comment on above: Performed By: #### L [id number] ####It Business Analyst: DANELLE MASON ([phone])[facility])[address] [place] [place] [address] NRBC 0.0 /100 WBCs Normal 0.0-2.0 [facility] Comment on above: Performed By: #### L [id number] ####It Business Analyst: DANELLE MASON ([phone])[facility])[address] [place] [address] Platelet mean volume (Bld) [Entitic vol] 9.2 fL Normal 9.0-12.7 [facility] Comment on above: Performed By: #### L [id number] ####It Business Analyst: DANELLE MASON ([phone])[facility])[address] [place] [address] [place] Platelets (Bld) [#/Vol] 350 10*3/uL Normal 140-440 [facility] Comment on above: Performed By: #### L [id number] ####It Business Analyst: DANELLE MASON ([phone])[facility])[address] [place] [address] [place] RBC (Bld) [#/Vol] 3.20 10*6/uL Low 3.80-5.20 [facility] Comment on above: Performed By: #### L [id number] ####It Business Analyst: DANELLE MASON ([phone])[facility])[address] [place] [address] [place] WBC (Bld) [#/Vol] 15.2 10*3/uL High 3.6-10.7 [facility] Comment on above: Performed By: #### L [id number] ####It Business Analyst: DANELLE MASON ([phone])[facility])[address] [place] [address] [place] IDNon 02-03-2024 IDN Normal [facility] MAGNESIUMon 02-03-2024 Magnesium [Mass/Vol] 2.4 mg/dL High 1.6-2.3 [facility] Comment on above: Performed By: #### L AB15, [id number], [id number] ####It Business Analyst: DANELLE MASON ([phone])[facility])[address] [place] [address] Nursing Noteon 02-03-2024 Nursing Note Normal [facility] Nursing Note Normal [facility] PHOSPHORUSon 02-03-2024 Phosphate [Mass/Vol] 3.2 mg/dL Normal 2.5-4.5 [facility] Comment on above: Performed By: #### L AB15, [id number], MFD290 ####It Business Analyst: DANELLE MASON ([phone])[facility])[address] [place] [address] Progress Noteon 02-03-2024 Progress Note Normal [facility] Progress Note Normal [facility] Progress Note Normal [facility] Progress Note Normal [facility] XR CHEST 1 VIEWon 02-03-2024 XR CHEST 1 VIEW [facility] BASIC METABOLIC PANELon Anion gap [Moles/Vol] 8 mmol/L Normal 3-13 [facility] Comment on above: Performed By: #### L AB15, QKC290, DHK752 ####It Business Analyst: DANELLE MASON ([phone])[facility])[address] [place] [place] [address] Calcium [Mass/Vol] 9.2 mg/dL Normal 8.4-10.4 [facility] Comment on above: Performed By: #### L AB15, [id number], PZV232 ####It Business Analyst: DANELLE MASON ([phone])[facility] ([facility])[address] [place] [address] [place] Chloride [Moles/Vol] 98 mmol/L Normal 98-107 [facility] Comment on above: Performed By: #### L AB15, RPM789, GTW701 ####It Business Analyst: DANELLE MASON ([phone])[facility] [place] [address] CO2 [Moles/Vol] 24 mmol/L Normal 22-30 [facility] Comment on above: Performed By: #### Soila AB15, MKS221, CRR898 ####It Business Analyst: DANELLE MASON ([phone])[facility])[address] [place] [place] [address] Creatinine [Mass/Vol] 2.35 mg/dL High 0.52-1.04 [facility] Comment on above: Performed By: #### Soila ABTavares, NBH992, VVK084 ####It Business Analyst: DANELLE MASON ([phone])[facility] [place] [place] [address] GLOMERULAR FILTRATION RATE ML/MIN/1.73 SQ M.PREDICTED 21.6 mL/min/1.73m*2 Low >60.0 [facility] Comment on above: Result Comment: Calc ulation based on the Chronic Kidney Disease Epidemiology Collaboration (CKD-EPI) equation refit without adjustment for race Performed By: #### L AB15, QSM373, JWA477 ####It Business Analyst: DANELLE MASON ([phone])[facility])[address] [place] [address] [place] Glucose [Mass/Vol] 100 mg/dL Normal 70-100 [facility] Comment on above: Performed By: #### L AB15, KCV409, AVB900 ####It Business Analyst: DANELLE MASON ([phone])[facility])[address] [place] [address] Potassium [Moles/Vol] 4.2 mmol/L Normal 3.5-5.1 [facility] Comment on above: Performed By: #### L AB15, ISK743, IHZ044 ####It Business Analyst: DANELLE MASON ([phone])[facility])[address] [place] [address] Sodium [Moles/Vol] 129 mmol/L Low 135-145 [facility] Comment on above: Performed By: #### L AB15, CHX878, HCQ671 ####It Business Analyst: DANELLE MASON ([phone])[facility])[address] [place] [address] Urea nitrogen [Mass/Vol] 43 mg/dL High 7-17 [facility] Comment on above: Performed By: #### L AB15, CDX531, QZQ879 ####It Business Analyst: DANELLE MASON ([phone])[facility])[address] [place] [place] [address] CALCIUM, IONIZEDon CALCIUM IONIZED 4.90 mg/dL Normal 4.30-5.20 [facility] Comment on above: Performed By: #### L AB54 ####It Business Analyst: DANELLE MASON ([phone])[facility])[address] [place] [place] [address] PH, IONIZED CALCIUM 7.34 Normal 7.31-7.46 [facility] Comment on above: Performed By: #### L AB54 ####It Business Analyst: DANELLE MASON ([phone])[facility])[address] [place] [address] CARECOORDon 02-02-2024 CAR[place]OORD Normal [facility] CBC WITH AUTO DIFFERENTIALon 02-02-2024 Basophils (Bld) [#/Vol] 0.0 10*3/uL Normal 0.0-0.2 [facility] Comment on above: Performed By: #### L [id number] ####It Business Analyst: DANELLE MASON ([phone])[facility])[address] [place] [address] Basophils/100 WBC (Bld) 0.3 % Normal 0.0-2.0 [facility] Comment on above: Performed By: #### L [id number] ####It Business Analyst: DANELLE MASON ([phone])[facility])[address] [place] [place] [address] Eosinophils (Bld) [#/Vol] 0.3 10*3/uL Normal 0.0-0.5 [facility] Comment on above: Performed By: #### L [id number] ####It Business Analyst: DANELLE MASON ([phone])[facility])[address] [place] [place] [address] Eosinophils/100 WBC (Bld) 2.5 % Normal 0.0-6.0 [facility] Comment on above: Performed By: #### L [id number] ####It Business Analyst: DANELLE MASON ([phone])[address] Erythrocyte distribution width (RBC) [Ratio] 17.3 % High 11.5-15.0 [facility] Comment on above: Performed By: #### L [id number] ####It Business Analyst: DANELLE MASON ([phone])[facility])[address] [place] [address] Hematocrit (Bld) [Volume fraction] 25.8 % Low 35.0-47.0 [facility] Comment on above: Performed By: #### L [id number] ####It Business Analyst: DANELLE MASON ([phone])[facility])[address] [place] [place] [address] Hemoglobin (Bld) [Mass/Vol] 8.7 g/dL Low 11.7-16.0 [facility] Comment on above: Performed By: #### L [id number] ####It Business Analyst: DANELLE MASON ([phone])[facility])[address] [place] [place] [address] IMMATURE GRANS % 1.4 % Normal 0.0-2.0 [facility] Comment on above: Performed By: #### L [id number] ####It Business Analyst: DANELLE MASON ([phone])[facility])[address] [place] [place] [address] IMMATURE GRANS ABSOLUTE 0.2 10*3/uL High <0.1 [facility] Comment on above: Performed By: #### L [id number] ####It Business Analyst: DANELLE MASON ([phone])[facility])[address] [place] [place] [address] Lymphocytes (Bld) [#/Vol] 1.5 10*3/uL Normal 1.0-4.3 [facility] Comment on above: Performed By: #### L [id number] ####It Business Analyst: DANELLE MASON ([phone])[address] Lymphocytes/100 WBC (Bld) 11.4 % Low 15.0-45.0 [facility] Comment on above: Performed By: #### L [id number] ####It Business Analyst: DANELLE MASON ([phone])[facility])[address] [place] [address] MCH (RBC) [Entitic mass] 29.2 pg Normal 26.0-34.0 [facility] Comment on above: Performed By: #### L [id number] ####It Business Analyst: DANELLE MASON ([phone])[facility])[address] [place] [place] [address] MCHC 33.7 % Normal 30.5-36.0 [facility] Comment on above: Performed By: #### L [id number] ####It Business Analyst: DANELLE MASON ([phone])[facility])[address] [place] [place] [address] MCV (RBC) [Entitic vol] 86.6 fL Normal 77.0-99.0 [facility] Comment on above: Performed By: #### L [id number] ####It Business Analyst: DANELLE MASON ([phone])[facility])[address] [place] [address] [place] Monocytes (Bld) [#/Vol] 1.4 10*3/uL High 0.0-0.9 [facility] Comment on above: Performed By: #### L [id number] ####It Business Analyst: DANELLE MASON ([phone])[facility])[address] [place] [address] Monocytes/100 WBC (Bld) 10.6 % Normal 5.0-13.0 [facility] Comment on above: Performed By: #### L [id number] ####It Business Analyst: DANELLE MASON ([phone])[facility])[address] [place] [address] NEUTROPHILS ABSOLUTE 9.7 10*3/uL High 1.8-7.5 [facility] Comment on above: Performed By: #### L [id number] ####It Business Analyst: DANELLE MASON ([phone])[facility])[address] [place] [address] Neutrophils/100 WBC (Bld) 73.8 % Normal 38.0-82.0 [facility] Comment on above: Performed By: #### L [id number] ####It Business Analyst: DANELLE MASON ([phone])[facility])[address] [place] [address] NRBC 0.0 /100 WBCs Normal 0.0-2.0 [facility] Comment on above: Performed By: #### L [id number] ####It Business Analyst: DANELLE MASON ([phone])[facility])[address] [place] [address] Platelet mean volume (Bld) [Entitic vol] 9.3 fL Normal 9.0-12.7 [facility] Comment on above: Performed By: #### L [id number] ####It Business Analyst: DANELLE MASON ([phone])[facility])[address] [place] [address] [place] Platelets (Bld) [#/Vol] 313 10*3/uL Normal 140-440 [facility] Comment on above: Performed By: #### L [id number] ####It Business Analyst: DANELLE MASON ([phone])[facility])[address] [place] [address] RBC (Bld) [#/Vol] 2.98 10*6/uL Low 3.80-5.20 [facility] Comment on above: Performed By: #### L [id number] ####It Business Analyst: DANELLE MASON ([phone])[facility])[address] [place] [address] WBC (Bld) [#/Vol] 13.2 10*3/uL High 3.6-10.7 [facility] Comment on above: Performed By: #### L [id number] ####It Business Analyst: DANELLE MASON ([phone])[facility])[address] [place] [address] IDNon 02-02-2024 IDN Normal [facility] MAGNESIUMon 02-02-2024 Magnesium [Mass/Vol] 2.7 mg/dL High 1.6-2.3 [facility] Comment on above: Performed By: #### L AB15, QKT760, [id number] ####It Business Analyst: DANELLE MASON ([phone])[facility])[address] [place] [address] Nursing Noteon 02-02-2024 Nursing Note Normal [facility] PHOSPHORUSon 02-02-2024 Phosphate [Mass/Vol] 3.3 mg/dL Normal 2.5-4.5 [facility] Comment on above: Performed By: #### L AB15, [id number], [id number] ####It Business Analyst: DANELLE MASON ([phone])[facility])[address] [place] [address] Progress Noteon 02-02-2024 Progress Note Normal [facility] Progress Note Normal [facility] Progress Note Normal [facility] Progress Note Normal [facility] XR CHEST 1 VIEWon 02-02-2024 XR CHEST 1 VIEW Normal [facility] BASIC METABOLIC PANELon 09-0 Anion gap [Moles/Vol] 8 mmol/L Normal 3-13 [facility] Comment on above: Performed By: #### L AB15, [id number], [id number] ####It Business Analyst: DANELLE MASON ([phone])[facility])[address] [place] [place] [address] Calcium [Mass/Vol] 8.8 mg/dL Normal 8.4-10.4 [facility] Comment on above: Performed By: #### L AB15, [id number], [id number] ####It Business Analyst: DANELLE MASON ([phone])[facility])[address] [place] [address] Chloride [Moles/Vol] 97 mmol/L Low 98-107 [facility] Comment on above: Performed By: #### L AB15, [id number], [id number] ####It Business Analyst: DANELLE MASON ([phone])[facility])[address] [place] [place] [address] CO2 [Moles/Vol] 25 mmol/L Normal 22-30 [facility] Comment on above: Performed By: #### L AB15, [id number], [id number] ####It Business Analyst: DANELLE MASON ([phone])[facility])[address] [place] [address] Creatinine [Mass/Vol] 1.51 mg/dL High 0.52-1.04 [facility] Comment on above: Performed By: #### L AB15, [id number], [id number] ####It Business Analyst: DANELLE MASON ([phone])[facility])61 [place] [address] [place] GLOMERULAR FILTRATION RATE ML/MIN/1.73 SQ M.PREDICTED 36.8 mL/min/1.73m*2 Low >60.0 [facility] Comment on above: Result Comment: Calc ulation based on the Chronic Kidney Disease Epidemiology Collaboration (CKD-EPI) equation refit without adjustment for race Performed By: #### L AB15, [id number], [id number] ####It Business Analyst: DANELLE MASON ([phone])[facility])[address] [place] [address] Glucose [Mass/Vol] 137 mg/dL High 70-100 [facility] Comment on above: Performed By: #### L AB15, [id number], [id number] ####It Business Analyst: DANELLE MASON ([phone])[facility])[address] [place] [address] Potassium [Moles/Vol] 4.3 mmol/L Normal 3.5-5.1 [facility] Comment on above: Performed By: #### L AB15, [id number], [id number] ####It Business Analyst: DANELLE MASON ([phone])[facility])[address] [place] [address] Sodium [Moles/Vol] 130 mmol/L Low 135-145 [facility] Comment on above: Performed By: #### L AB15, [id number], ADQ172 ####It Business Analyst: DANELLE MASON ([phone])[facility])[address] [place] [address] Urea nitrogen [Mass/Vol] 23 mg/dL High 7-17 [facility] Comment on above: Performed By: #### L AB15, [id number], [id number] ####It Business Analyst: DANELLE MASON ([phone])[facility])[address] [place] [address] [place] CALCIUM, IONIZEDon 4 CALCIUM IONIZED 4.70 mg/dL Normal 4.30-5.20 [facility] Comment on above: Performed By: #### L AB54 ####It Business Analyst: DANELLE MASON ([phone])[facility])[address] [place] [address] PH, IONIZED CALCIUM 7.39 Normal 7.31-7.46 [facility] Comment on above: Performed By: #### L AB54 ####It Business Analyst: DANELLE MASON ([phone])[facility])[address] [place] [place] [address] CBC WITH AUTO DIFFERENTIALon 02-01-2024 Basophils (Bld) [#/Vol] 0.0 10*3/uL Normal 0.0-0.2 [facility] Comment on above: Performed By: #### L [id number] ####It Business Analyst: DANELLE MASON ([phone])[facility])[address] [place] [address] Basophils/100 WBC (Bld) 0.3 % Normal 0.0-2.0 [facility] Comment on above: Performed By: #### L [id number] ####It Business Analyst: DANELLE MASON ([phone])[address] Eosinophils (Bld) [#/Vol] 0.1 10*3/uL Normal 0.0-0.5 [facility] Comment on above: Performed By: #### L [id number] ####It Business Analyst: DANELLE MASON ([phone])[facility])[address] [place] [address] Eosinophils/100 WBC (Bld) 1.0 % Normal 0.0-6.0 [facility] Comment on above: Performed By: #### L [id number] ####It Business Analyst: DANELLE MASON ([phone])[address] Erythrocyte distribution width (RBC) [Ratio] 17.4 % High 11.5-15.0 [facility] Comment on above: Performed By: #### L [id number] ####It Business Analyst: DANELLE MASON ([phone])[address] Hematocrit (Bld) [Volume fraction] 24.2 % Low 35.0-47.0 [facility] Comment on above: Performed By: #### L [id number] ####It Business Analyst: DANELLE [phone])[facility] Hemoglobin (Bld) [Mass/Vol] 8.2 g/dL Low 11.7-16.0 [facility] Comment on above: Performed By: #### L [id number] ####It Business Analyst: DANELLE MASON ([phone])[facility])[address] [place] [place] [address] IMMATURE GRANS % 1.1 % Normal 0.0-2.0 [facility] Comment on above: Performed By: #### L [id number] ####It Business Analyst: DANELLE MASON ([phone])[address] IMMATURE GRANS ABSOLUTE 0.1 10*3/uL High <0.1 [facility] Comment on above: Performed By: #### L [id number] ####It Business Analyst: DANELLE MASON ([phone])[facility])[address] [place] [place] [address] Lymphocytes (Bld) [#/Vol] 1.1 10*3/uL Normal 1.0-4.3 [facility] Comment on above: Performed By: #### L [id number] ####It Business Analyst: DANELLE MASON ([phone])[address] Lymphocytes/100 WBC (Bld) 8.6 % Low 15.0-45.0 [facility] Comment on above: Performed By: #### L [id number] ####It Business Analyst: DANELLE MASON ([phone])[facility])[address] [place] [address] MCH (RBC) [Entitic mass] 29.2 pg Normal 26.0-34.0 [facility] Comment on above: Performed By: #### L [id number] ####It Business Analyst: DANELLE MASON ([phone])[facility])[address] [place] [place] [address] MCHC 33.9 % Normal 30.5-36.0 [facility] Comment on above: Performed By: #### L [id number] ####It Business Analyst: DANELLE MASON ([phone])[facility])[address] [place] [address] MCV (RBC) [Entitic vol] 86.1 fL Normal 77.0-99.0 [facility] Comment on above: Performed By: #### L [id number] ####It Business Analyst: DANELLE MASON ([phone])[facility])[address] [place] [place] [address] Monocytes (Bld) [#/Vol] 1.3 10*3/uL High 0.0-0.9 [facility] Comment on above: Performed By: #### L [id number] ####It Business Analyst: DANELLE MASON ([phone])[facility])[address] [place] [address] Monocytes/100 WBC (Bld) 10.0 % Normal 5.0-13.0 [facility] Comment on above: Performed By: #### L [id number] ####It Business Analyst: DANELLE MASON ([phone])[facility])[address] [place] [place] [address] NEUTROPHILS ABSOLUTE 9.8 10*3/uL High 1.8-7.5 [facility] Comment on above: Performed By: #### L [id number] ####It Business Analyst: DANELLE MASON ([phone])[facility])[address] [place] [address] Neutrophils/100 WBC (Bld) 79.0 % Normal 38.0-82.0 [facility] Comment on above: Performed By: #### L [id number] ####It Business Analyst: DANELLE MASON ([phone])[facility])[address] [place] [address] NRBC 0.0 /100 WBCs Normal 0.0-2.0 [facility] Comment on above: Performed By: #### L [id number] ####It Business Analyst: DANELLE MASON ([phone])[facility])[address] [place] [address] Platelet mean volume (Bld) [Entitic vol] 9.4 fL Normal 9.0-12.7 [facility] Comment on above: Performed By: #### L [id number] ####It Business Analyst: DANELLE MASON ([phone])[facility])[address] [place] [address] Platelets (Bld) [#/Vol] 236 10*3/uL Normal 140-440 [facility] Comment on above: Performed By: #### L [id number] ####It Business Analyst: DANELLE MASON ([phone])[facility])[address] [place] [address] RBC (Bld) [#/Vol] 2.81 10*6/uL Low 3.80-5.20 [facility] Comment on above: Performed By: #### L [id number] ####It Business Analyst: DANELLE MASON ([phone])[facility])[address] [place] [address] WBC (Bld) [#/Vol] 12.5 10*3/uL High 3.6-10.7 [facility] Comment on above: Performed By: #### L [id number] ####It Business Analyst: DANELLE MASON ([phone])[facility])[address] [place] [address] MAGNESIUMon 02-01-2024 Magnesium [Mass/Vol] 2.7 mg/dL High 1.6-2.3 [facility] Comment on above: Performed By: #### L AB15, [id number], [id number] ####It Business Analyst: DANELLE MASON ([phone])[facility])[address] [place] [address] PHOSPHORUSon 02-01-2024 Phosphate [Mass/Vol] 2.4 mg/dL Low 2.5-4.5 [facility] Comment on above: Performed By: #### L AB15, [id number], [id number] ####It Business Analyst: DANELLE MASON ([phone])[facility] [place] [address] Progress Noteon 02-01-2024 Progress Note Normal [facility] Progress Note Normal [facility] Progress Note Normal [facility] XR CHEST 1 VIEWon 02-01-2024 XR CHEST 1 VIEW Normal [facility] BASIC METABOLIC PANELon Anion gap [Moles/Vol] 11 mmol/L Normal 3-13 [facility] Comment on above: Performed By: #### L AB15 ####It Business Analyst: DANELLE MASON ([phone])[facility])[address] [place] [address] Calcium [Mass/Vol] 8.6 mg/dL Normal 8.4-10.4 [facility] Comment on above: Performed By: #### L AB15 ####It Business Analyst: DANELLE MASON ([phone])[facility] [place] [address] [place] Chloride [Moles/Vol] 100 mmol/L Normal 98-107 [facility] Comment on above: Performed By: #### L AB15 ####It Business Analyst: DANELLE MASON ([phone])[facility])[address] [place] [address] [place] CO2 [Moles/Vol] 23 mmol/L Normal 22-30 [facility] Comment on above: Performed By: #### L AB15 ####It Business Analyst: DANELLE MASON ([phone])[facility])[address] [place] [address] Creatinine [Mass/Vol] 0.73 mg/dL Normal 0.52-1.04 [facility] Comment on above: Performed By: #### L AB15 ####It Business Analyst: DANELLE MASON ([phone])[facility])[address] [place] [address] [place] GLOMERULAR FILTRATION RATE ML/MIN/1.73 SQ M.PREDICTED 88.0 mL/min/1.73m*2 Normal >60.0 [facility] Comment on above: Result Comment: Calc ulation based on the Chronic Kidney Disease Epidemiology Collaboration (CKD-EPI) equation refit without adjustment for race Performed By: #### L AB15 ####It Business Analyst: DANELLE MASON ([phone])[facility])[address] [place] [address] Glucose [Mass/Vol] 154 mg/dL High 70-100 [facility] Comment on above: Performed By: #### L AB15 ####It Business Analyst: DANELLE MASON ([phone])[facility])[address] [place] [address] Potassium [Moles/Vol] 4.4 mmol/L Normal 3.5-5.1 [facility] Comment on above: Performed By: #### L AB15 ####It Business Analyst: DANELLE MASON ([phone])[facility])[address] [place] [address] Sodium [Moles/Vol] 134 mmol/L Low 135-145 [facility] Comment on above: Performed By: #### L AB15 ####It Business Analyst: DANELLE MASON ([phone])[facility])[address] [place] [address] Urea nitrogen [Mass/Vol] 12 mg/dL Normal 7-17 [facility] Comment on above: Performed By: #### L AB15 ####It Business Analyst: DANELLE MASON ([phone])[facility])[address] [place] [place] [address] Anion gap [Moles/Vol] 10 mmol/L Normal 3-13 [facility] Comment on above: Performed By: #### L AB113, [id number], LAB15 ####It Business Analyst: DANELLE MASON ([phone])[facility])[address] [place] [address] [place] Calcium [Mass/Vol] 8.4 mg/dL Normal 8.4-10.4 [facility] Comment on above: Performed By: #### L AB113, [id number], LAB15 ####It Business Analyst: DANELLE MASON ([phone])[facility])[address] [place] [address] Chloride [Moles/Vol] 101 mmol/L Normal 98-107 [facility] Comment on above: Performed By: #### L AB113, KTN351, LAB15 ####It Business Analyst: DANELLE MASON ([phone])[facility])[address] [place] [place] [address] CO2 [Moles/Vol] 24 mmol/L Normal 22-30 [facility] Comment on above: Performed By: #### L AB113, EUH547, LAB15 ####It Business Analyst: DANELLE MASON ([phone])[facility])[address] [place] [place] [address] Creatinine [Mass/Vol] 0.86 mg/dL Normal 0.52-1.04 [facility] Comment on above: Performed By: #### L AB113, ZRB306, LAB15 ####It Business Analyst: DANELLE MASON ([phone])[facility])[address] [place] [address] GLOMERULAR FILTRATION RATE ML/MIN/1.73 SQ M.PREDICTED 72.3 mL/min/1.73m*2 Normal >60.0 [facility] Comment on above: Result Comment: Calc ulation based on the Chronic Kidney Disease Epidemiology Collaboration (CKD-EPI) equation refit without adjustment for race Performed By: #### L AB113, VTE540, LAB15 ####It Business Analyst: DANELLE MASON ([phone])[facility])[address] [place] [address] [place] Glucose [Mass/Vol] 62 mg/dL Low 70-100 [facility] Comment on above: Performed By: #### L AB113, GYQ019, LAB15 ####It Business Analyst: DANELLE MASON ([phone])[facility])[address] [place] [address] [place] Potassium [Moles/Vol] 4.2 mmol/L Normal 3.5-5.1 [facility] Comment on above: Performed By: #### L AB113, COE512, LAB15 ####It Business Analyst: DANELLE MASON ([phone])[facility])[address] [place] [address] Sodium [Moles/Vol] 135 mmol/L Normal 135-145 [facility] Comment on above: Performed By: #### L AB113, EUA006, LAB15 ####It Business Analyst: DANELLE MASON ([phone])[facility])[address] [place] [address] Urea nitrogen [Mass/Vol] 14 mg/dL Normal 7-17 [facility] Comment on above: Performed By: #### L AB113, [id number], LAB15 ####It Business Analyst: DANELLE MASON ([phone])[facility])[address] [place] [address] CALCIUM, IONIZEDon 4 CALCIUM IONIZED 4.20 mg/dL Low 4.30-5.20 [facility] Comment on above: Performed By: #### L AB54 ####It Business Analyst: DANELLE MASON ([phone])[facility])[address] [place] [place] [address] PH, IONIZED CALCIUM 7.42 Normal 7.31-7.46 [facility] Comment on above: Performed By: #### L AB54 ####It Business Analyst: DANELLE MASON ([phone])[facility])[address] [place] [place] [address] CALCIUM IONIZED 4.30 mg/dL Normal 4.30-5.20 [facility] Comment on above: Performed By: #### L AB54 ####It Business Analyst: DANELLE MASON ([phone])[facility])[address] [place] [address] PH, IONIZED CALCIUM 7.40 Normal 7.31-7.46 [facility] Comment on above: Performed By: #### L AB54 ####It Business Analyst: DANELLE MASON ([phone])[facility])[address] [place] [place] [address] CBC WITH AUTO DIFFERENTIALon 01-31-2024 Basophils (Bld) [#/Vol] 0.0 10*3/uL Normal 0.0-0.2 [facility] Comment on above: Performed By: #### L [id number] ####It Business Analyst: DANELLE MASON ([phone])[facility])[address] [place] [address] Basophils/100 WBC (Bld) 0.3 % Normal 0.0-2.0 [facility] Comment on above: Performed By: #### L [id number] ####It Business Analyst: DANELLE MASON ([phone])[facility])[address] [place] [place] [address] Eosinophils (Bld) [#/Vol] 0.2 10*3/uL Normal 0.0-0.5 [facility] Comment on above: Performed By: #### L [id number] ####It Business Analyst: DANELLE MASON ([phone])[facility])[address] [place] [address] Eosinophils/100 WBC (Bld) 1.5 % Normal 0.0-6.0 [facility] Comment on above: Performed By: #### L [id number] ####It Business Analyst: DANELLE MASON ([phone])[facility])[address] [place] [address] Erythrocyte distribution width (RBC) [Ratio] 16.9 % High 11.5-15.0 [facility] Comment on above: Performed By: #### L [id number] ####It Business Analyst: DANELLE MASON ([phone])[facility])[address] [place] [address] Hematocrit (Bld) [Volume fraction] 25.8 % Low 35.0-47.0 [facility] Comment on above: Performed By: #### L [id number] ####It Business Analyst: DANELLE MASON ([phone])[facility])[address] [place] [place] [address] Hemoglobin (Bld) [Mass/Vol] 8.7 g/dL Low 11.7-16.0 [facility] Comment on above: Performed By: #### L [id number] ####It Business Analyst: DANELLE MASON ([phone])[facility])[address] [place] [address] IMMATURE GRANS % 1.4 % Normal 0.0-2.0 [facility] Comment on above: Performed By: #### L [id number] ####It Business Analyst: DANELLE MASON ([phone])[facility])[address] [place] [address] IMMATURE GRANS ABSOLUTE 0.2 10*3/uL High <0.1 [facility] Comment on above: Performed By: #### L [id number] ####It Business Analyst: DANELLE MASON ([phone])[facility])[address] [place] [address] Lymphocytes (Bld) [#/Vol] 1.2 10*3/uL Normal 1.0-4.3 [facility] Comment on above: Performed By: #### L [id number] ####It Business Analyst: DANELLE MASON ([phone])[facility])[address] [place] [address] Lymphocytes/100 WBC (Bld) 10.5 % Low 15.0-45.0 [facility] Comment on above: Performed By: #### L [id number] ####It Business Analyst: DANELLE MASON ([phone])[facility])[address] [place] [place] [address] MCH (RBC) [Entitic mass] 28.7 pg Normal 26.0-34.0 [facility] Comment on above: Performed By: #### L [id number] ####It Business Analyst: DANELLE MASON ([phone])[facility])[address] [place] [place] [address] MCHC 33.7 % Normal 30.5-36.0 [facility] Comment on above: Performed By: #### L [id number] ####It Business Analyst: DANELLE MASON ([phone])[facility])[address] [place] [place] [address] MCV (RBC) [Entitic vol] 85.1 fL Normal 77.0-99.0 [facility] Comment on above: Performed By: #### L [id number] ####It Business Analyst: DANELLE MASON ([phone])[facility])[address] [place] [place] [address] Monocytes (Bld) [#/Vol] 1.4 10*3/uL High 0.0-0.9 [facility] Comment on above: Performed By: #### L [id number] ####It Business Analyst: DANELLE MASON ([phone])[facility])[address] [place] [address] Monocytes/100 WBC (Bld) 11.9 % Normal 5.0-13.0 [facility] Comment on above: Performed By: #### L [id number] ####It Business Analyst: DANELLE MASON ([phone])[facility])[address] [place] [place] [address] NEUTROPHILS ABSOLUTE 8.5 10*3/uL High 1.8-7.5 [facility] Comment on above: Performed By: #### L [id number] ####It Business Analyst: DANELLE MASON ([phone])[facility])[address] [place] [place] [address] Neutrophils/100 WBC (Bld) 74.4 % Normal 38.0-82.0 [facility] Comment on above: Performed By: #### L [id number] ####It Business Analyst: DANELLE MASON ([phone])[facility])[address] [place] [place] [address] NRBC 0.0 /100 WBCs Normal 0.0-2.0 [facility] Comment on above: Performed By: #### L [id number] ####It Business Analyst: DANELLE MASON ([phone])[facility])[address] [place] [place] [address] Platelet mean volume (Bld) [Entitic vol] 9.3 fL Normal 9.0-12.7 [facility] Comment on above: Performed By: #### L [id number] ####It Business Analyst: DANELLE MASON ([phone])[facility])[address] [place] [address] Platelets (Bld) [#/Vol] 204 10*3/uL Normal 140-440 [facility] Comment on above: Performed By: #### L [id number] ####It Business Analyst: DANELLE MASON ([phone])[facility])[address] [place] [address] RBC (Bld) [#/Vol] 3.03 10*6/uL Low 3.80-5.20 [facility] Comment on above: Performed By: #### L [id number] ####It Business Analyst: DANELLE MASON ([phone])[facility])[address] [place] [address] WBC (Bld) [#/Vol] 11.4 10*3/uL High 3.6-10.7 [facility] Comment on above: Performed By: #### L [id number] ####It Business Analyst: DANELLE MASON ([phone])[facility])[address] [place] [address] GLUCOSE, RANDOMon 01-31-2024 Glucose [Mass/Vol] 37 mg/dL Critically low 70-100 [facility] Comment on above: Performed By: #### L AB82 ####It Business Analyst: DANELLE MASON ([phone])[facility])[address] [place] [address] [place] IDNon 01-31-2024 IDN Normal [facility] MAGNESIUMon 01-31-2024 Magnesium [Mass/Vol] 2.7 mg/dL High 1.6-2.3 [facility] Comment on above: Performed By: #### L [id number], [id number], [id number] ####It Business Analyst: DANELLE MASON ([phone])[facility] ([facility])[address] [place] [place] [address] PHOSPHORUSon 01-31-2024 Phosphate [Mass/Vol] 1.8 mg/dL Low 2.5-4.5 [facility] Comment on above: Performed By: #### L AB113, [id number], [id number] ####It Business Analyst: DANELLE MASON ([phone])[facility])[address] [place] [place] [address] Progress Noteon 01-31-2024 Progress Note Normal [facility] Progress Note Normal [facility] XR CHEST 1 VIEWon 01-31-2024 XR CHEST 1 VIEW Normal [facility] BASIC METABOLIC PANELon 08-3 Anion gap [Moles/Vol] 10 mmol/L Normal 3-13 [facility] Comment on above: Performed By: #### L AB15 ####It Business Analyst: DANELLE MASON ([phone])[facility])[address] [place] [place] [address] Calcium [Mass/Vol] 8.5 mg/dL Normal 8.4-10.4 [facility] Comment on above: Performed By: #### L AB15 ####It Business Analyst: DANELLE MASON ([phone])[facility])[address] [place] [place] [address] Chloride [Moles/Vol] 98 mmol/L Normal 98-107 [facility] Comment on above: Performed By: #### L AB15 ####It Business Analyst: DANELLE MASON ([phone])[facility])[address] [place] [place] [address] CO2 [Moles/Vol] 25 mmol/L Normal 22-30 [facility] Comment on above: Performed By: #### L AB15 ####It Business Analyst: DANELLE MASON ([phone])[facility] [place] [address] [place] Creatinine [Mass/Vol] 1.15 mg/dL High 0.52-1.04 [facility] Comment on above: Performed By: #### L AB15 ####It Business Analyst: DANELLE MASON ([phone])[facility] [place] [address] [place] GLOMERULAR FILTRATION RATE ML/MIN/1.73 SQ M.PREDICTED 51.0 mL/min/1.73m*2 Low >60.0 [facility] Comment on above: Result Comment: Calc ulation based on the Chronic Kidney Disease Epidemiology Collaboration (CKD-EPI) equation refit without adjustment for race Performed By: #### L AB15 ####It Business Analyst: DANELLE MASON ([phone])[facility])[address] [place] [address] Glucose [Mass/Vol] 176 mg/dL High 70-100 [facility] Comment on above: Performed By: #### L AB15 ####It Business Analyst: DANELLE MASON ([phone])[facility] [place] [address] [place] Potassium [Moles/Vol] 4.0 mmol/L Normal 3.5-5.1 [facility] Comment on above: Performed By: #### L AB15 ####It Business Analyst: DANELLE MASON ([phone])[facility] [place] [address] [place] Sodium [Moles/Vol] 133 mmol/L Low 135-145 [facility] Comment on above: Performed By: #### L AB15 ####It Business Analyst: DANELLE MASON ([phone])[facility])[address] [place] [address] [place] Urea nitrogen [Mass/Vol] 21 mg/dL High 7-17 [facility] Comment on above: Performed By: #### L AB15 ####It Business Analyst: DANELLE MASON ([phone])[facility])[address] Anion gap [Moles/Vol] 7 mmol/L Normal 3-13 [facility] Comment on above: Performed By: #### L AB15 ####It Business Analyst: DANELLE MASON ([phone])[facility])[address] [place] [place] [address] Calcium [Mass/Vol] 8.5 mg/dL Normal 8.4-10.4 [facility] Comment on above: Performed By: #### L AB15 ####It Business Analyst: DANELLE MASON ([phone])[facility] [place] [address] Chloride [Moles/Vol] 98 mmol/L Normal 98-107 [facility] Comment on above: Performed By: #### L AB15 ####It Business Analyst: DANELLE MASON ([phone])[facility] [place] [address] CO2 [Moles/Vol] 25 mmol/L Normal 22-30 [facility] Comment on above: Performed By: #### L AB15 ####It Business Analyst: DANELLE MASON ([phone])[facility])[address] [place] [address] Creatinine [Mass/Vol] 1.30 mg/dL High 0.52-1.04 [facility] Comment on above: Performed By: #### L AB15 ####It Business Analyst: DANELLE MASON ([phone])[facility])[address] [place] [address] GLOMERULAR FILTRATION RATE ML/MIN/1.73 SQ M.PREDICTED 44.1 mL/min/1.73m*2 Low >60.0 [facility] Comment on above: Result Comment: Calc ulation based on the Chronic Kidney Disease Epidemiology Collaboration (CKD-EPI) equation refit without adjustment for race Performed By: #### L AB15 ####It Business Analyst: DANELLE MASON ([phone])[facility])[address] [place] [address] [place] Glucose [Mass/Vol] 223 mg/dL High 70-100 [facility] Comment on above: Performed By: #### L AB15 ####It Business Analyst: DANELLE MASON ([phone])[facility])[address] [place] [place] [address] Potassium [Moles/Vol] 4.6 mmol/L Normal 3.5-5.1 [facility] Comment on above: Performed By: #### L AB15 ####It Business Analyst: DANELLE MASON ([phone])[facility])[address] [place] [address] [place] Sodium [Moles/Vol] 131 mmol/L Low 135-145 [facility] Comment on above: Performed By: #### L AB15 ####It Business Analyst: DANELLE MASON ([phone])[facility])[address] [place] [address] Urea nitrogen [Mass/Vol] 22 mg/dL High 7-17 [facility] Comment on above: Performed By: #### L AB15 ####It Business Analyst: DANELLE MASON ([phone])[facility])[address] [place] [address] [place] Anion gap [Moles/Vol] 12 mmol/L Normal 3-13 [facility] Comment on above: Performed By: #### L AB113, LAB15, [id number] ####It Business Analyst: DANELLE MASON ([phone])[facility])[address] [place] [address] [place] Calcium [Mass/Vol] 8.5 mg/dL Normal 8.4-10.4 [facility] Comment on above: Performed By: #### L AB113, LAB15, [id number] ####It Business Analyst: DANELLE MASON ([phone])[facility])[address] [place] [address] [place] Chloride [Moles/Vol] 99 mmol/L Normal 98-107 [facility] Comment on above: Performed By: #### L AB113, LAB15, [id number] ####It Business Analyst: DANELLE MASON ([phone])[facility] ([facility])[address] [place] [place] [address] CO2 [Moles/Vol] 22 mmol/L Normal 22-30 [facility] Comment on above: Performed By: #### L AB113, LAB15, [id number] ####It Business Analyst: DANELLE MASON ([phone])[facility])[address] [place] [address] Creatinine [Mass/Vol] 1.77 mg/dL High 0.52-1.04 [facility] Comment on above: Performed By: #### L AB113, LAB15, [id number] ####It Business Analyst: DANELLE MASON ([phone])[facility])[address] [place] [place] [address] GLOMERULAR FILTRATION RATE ML/MIN/1.73 SQ M.PREDICTED 30.4 mL/min/1.73m*2 Low >60.0 [facility] Comment on above: Result Comment: Calc ulation based on the Chronic Kidney Disease Epidemiology Collaboration (CKD-EPI) equation refit without adjustment for race Performed By: #### L AB113, LAB15, [id number] ####It Business Analyst: DANELLE MASON ([phone])[facility])[address] [place] [place] [address] Glucose [Mass/Vol] 105 mg/dL High 70-100 [facility] Comment on above: Performed By: #### L AB113, LAB15, [id number] ####It Business Analyst: DANELLE MASON ([phone])[facility])[address] [place] [address] [place] Potassium [Moles/Vol] 4.6 mmol/L Normal 3.5-5.1 [facility] Comment on above: Performed By: #### L AB113, LAB15, [id number] ####It Business Analyst: DANELLE MASON ([phone])[facility])[address] [place] [address] [place] Sodium [Moles/Vol] 133 mmol/L Low 135-145 [facility] Comment on above: Performed By: #### L AB113, LAB15, [id number] ####It Business Analyst: DANELLE MASON ([phone])[facility])[address] Urea nitrogen [Mass/Vol] 27 mg/dL High 7-17 [facility] Comment on above: Performed By: #### L AB113, LAB15, [id number] ####It Business Analyst: DANELLE MASON ([phone])[facility])[address] [place] [address] Anion gap [Moles/Vol] 8 mmol/L Normal 3-13 [facility] Comment on above: Performed By: #### L AB15 ####It Business Analyst: DANELLE MASON ([phone])[facility])[address] [place] [place] [address] Calcium [Mass/Vol] 8.4 mg/dL Normal 8.4-10.4 [facility] Comment on above: Performed By: #### L AB15 ####It Business Analyst: DANELLE MASON ([phone])[facility])[address] [place] [address] [place] Chloride [Moles/Vol] 99 mmol/L Normal 98-107 [facility] Comment on above: Performed By: #### L AB15 ####It Business Analyst: DANELLE MASON ([phone])[facility])[address] [place] [address] [place] CO2 [Moles/Vol] 24 mmol/L Normal 22-30 [facility] Comment on above: Performed By: #### L AB15 ####It Business Analyst: DANELLE MASON ([phone])[facility])[address] [place] [address] [place] Creatinine [Mass/Vol] 2.38 mg/dL High 0.52-1.04 [facility] Comment on above: Performed By: #### L AB15 ####It Business Analyst: DANELLE MASON ([phone])[facility])[address] [place] [address] GLOMERULAR FILTRATION RATE ML/MIN/1.73 SQ M.PREDICTED 21.3 mL/min/1.73m*2 Low >60.0 [facility] Comment on above: Result Comment: Calc ulation based on the Chronic Kidney Disease Epidemiology Collaboration (CKD-EPI) equation refit without adjustment for race Performed By: #### L AB15 ####It Business Analyst: DANELLE MASON ([phone])[facility])[address] [place] [address] Glucose [Mass/Vol] 96 mg/dL Normal 70-100 [facility] Comment on above: Performed By: #### L AB15 ####It Business Analyst: DANELLE MASON ([phone])[facility])[address] [place] [place] [address] Potassium [Moles/Vol] 4.6 mmol/L Normal 3.5-5.1 [facility] Comment on above: Performed By: #### L AB15 ####It Business Analyst: DANELLE MASON ([phone])[facility])[address] [place] [place] [address] Sodium [Moles/Vol] 131 mmol/L Low 135-145 [facility] Comment on above: Performed By: #### L AB15 ####It Business Analyst: DANELLE MASON ([phone])[facility])[address] [place] [address] [place] Urea nitrogen [Mass/Vol] 37 mg/dL High 7-17 [facility] Comment on above: Performed By: #### L AB15 ####It Business Analyst: DANELLE MASON ([phone])[facility])[address] [place] [address] [place] CALCIUM, IONIZEDon 4 CALCIUM IONIZED 4.50 mg/dL Normal 4.30-5.20 [facility] Comment on above: Performed By: #### L AB54 ####It Business Analyst: DANELLE MASON ([phone])[facility])[address] [place] [address] [place] PH, IONIZED CALCIUM 7.34 Normal 7.31-7.46 [facility] Comment on above: Performed By: #### L AB54 ####It Business Analyst: DANELLE MASON ([phone])[facility])[address] [place] [address] CALCIUM IONIZED 4.40 mg/dL Normal 4.30-5.20 [facility] Comment on above: Performed By: #### L AB54 ####It Business Analyst: DANELLE MASON ([phone])[facility])[address] [place] [address] [place] PH, IONIZED CALCIUM 7.36 Normal 7.31-7.46 [facility] Comment on above: Performed By: #### L AB54 ####It Business Analyst: DANELLE MASON ([phone])[facility])[address] [place] [address] [place] CALCIUM IONIZED 4.30 mg/dL Normal 4.30-5.20 [facility] Comment on above: Performed By: #### L AB54 ####It Business Analyst: DANELLE MASON ([phone])[facility])[address] [place] [address] [place] PH, IONIZED CALCIUM 7.36 Normal 7.31-7.46 [facility] Comment on above: Performed By: #### L AB54 ####It Business Analyst: DANELLE MASON ([phone])[facility])[address] [place] [address] [place] CALCIUM IONIZED 4.30 mg/dL Normal 4.30-5.20 [facility] Comment on above: Performed By: #### L AB54 ####It Business Analyst: DANELLE MASON ([phone])[facility])[address] [place] [address] [place] PH, IONIZED CALCIUM 7.34 Normal 7.31-7.46 [facility] Comment on above: Performed By: #### L AB54 ####It Business Analyst: DANELLE MASON ([phone])[facility])[address] [place] [place] [address] CBC (HEMOGRAM)on 01-30-2024 Erythrocyte distribution width (RBC) [Ratio] 16.5 % High 11.5-15.0 [facility] Comment on above: Performed By: #### L AB294 ####It Business Analyst: DANELLE MASON ([phone])[facility])[address] [place] [place] [address] Hematocrit (Bld) [Volume fraction] 27.3 % Low 35.0-47.0 [facility] Comment on above: Performed By: #### L AB294 ####It Business Analyst: DANELLE MASON ([phone])[address] Hemoglobin (Bld) [Mass/Vol] 9.2 g/dL Low 11.7-16.0 [facility] Comment on above: Performed By: #### L AB294 ####It Business Analyst: DANELLE MASON ([phone])[facility])[address] [place] [place] [address] MCH (RBC) [Entitic mass] 28.6 pg Normal 26.0-34.0 [facility] Comment on above: Performed By: #### L AB294 ####It Business Analyst: DANELLE MASON ([phone])[address] MCHC 33.7 % Normal 30.5-36.0 [facility] Comment on above: Performed By: #### L AB294 ####It Business Analyst: DANELLE MASON ([phone])[facility])[address] [place] [place] [address] MCV (RBC) [Entitic vol] 84.8 fL Normal 77.0-99.0 [facility] Comment on above: Performed By: #### L AB294 ####It Business Analyst: DANELLE MASON ([phone])[facility])[address] [place] [address] Platelet mean volume (Bld) [Entitic vol] 9.6 fL Normal 9.0-12.7 [facility] Comment on above: Performed By: #### L AB294 ####It Business Analyst: DANELLE MASON ([phone])[facility])[address] [place] [place] [address] Platelets (Bld) [#/Vol] 212 10*3/uL Normal 140-440 [facility] Comment on above: Performed By: #### L AB294 ####It Business Analyst: DANELLE MASON ([phone])[facility])[address] [place] [place] [address] RBC (Bld) [#/Vol] 3.22 10*6/uL Low 3.80-5.20 [facility] Comment on above: Performed By: #### L AB294 ####It Business Analyst: DANELLE MASON ([phone])[facility])[address] [place] [place] [address] WBC (Bld) [#/Vol] 12.0 10*3/uL High 3.6-10.7 [facility] Comment on above: Performed By: #### L AB294 ####It Business Analyst: DANELLE MASON ([phone])[facility])[address] [place] [place] [address] IDNon 01-30-2024 IDN Normal [facility] MAGNESIUMon 01-30-2024 Magnesium [Mass/Vol] 2.8 mg/dL High 1.6-2.3 [facility] Comment on above: Performed By: #### L AB113, LAB15, [id number] ####It Business Analyst: DANELLE MASON ([phone])[facility])[address] [place] [place] [address] PHOSPHORUSon 01-30-2024 Phosphate [Mass/Vol] 2.3 mg/dL Low 2.5-4.5 [facility] Comment on above: Performed By: #### L AB113, LAB15, [id number] ####It Business Analyst: DANELLE [phone])[facility])[address] [place] [address] [place] PNEUMONIA PCR PANELon 2023 PNEUMONIA PCR PANEL Normal [facility] Comment on above: Performed By: #### L [id number] ####It Business Analyst: DANELLE MASON ([phone])[facility])[address] [place] [place] [address] Progress Noteon 01-30-2024 Progress Note Normal [facility] Progress Note Normal [facility] Progress Note Normal [facility] Progress Note [facility] RESPIRATORY CULTURE AND STAI Non 01-30-2024 RESPIRATORY CULTURE AND STAIN Normal [facility] Comment on above: Performed By: #### L AB900 ####It Business Analyst: DANELLE MASON ([phone])[facility])[address] [place] [place] [address] XR CHEST 1 VIEWon 01-30-2024 XR CHEST 1 VIEW Normal [facility] BASIC METABOLIC PANELon 08-3 Anion gap [Moles/Vol] 10 mmol/L Normal 3-13 [facility] Comment on above: Performed By: #### L AB15 ####It Business Analyst: DANELLE MASON ([phone])[facility])[address] [place] [place] [address] Calcium [Mass/Vol] 8.3 mg/dL Low 8.4-10.4 [facility] Comment on above: Performed By: #### L AB15 ####It Business Analyst: DANELLE MASON ([phone])[facility])[address] [place] [address] [place] Chloride [Moles/Vol] 96 mmol/L Low 98-107 [facility] Comment on above: Performed By: #### L AB15 ####It Business Analyst: DANELLE MASON ([phone])[facility])[address] [place] [address] [place] CO2 [Moles/Vol] 20 mmol/L Low 22-30 [facility] Comment on above: Performed By: #### L AB15 ####It Business Analyst: DANELLE MASON ([phone])[facility])[address] [place] [address] Creatinine [Mass/Vol] 3.52 mg/dL High 0.52-1.04 [facility] Comment on above: Performed By: #### L AB15 ####It Business Analyst: DANELLE MASON ([phone])[facility])[address] [place] [place] [address] GLOMERULAR FILTRATION RATE ML/MIN/1.73 SQ M.PREDICTED 13.3 mL/min/1.73m*2 Low >60.0 [facility] Comment on above: Result Comment: Calc ulation based on the Chronic Kidney Disease Epidemiology Collaboration (CKD-EPI) equation refit without adjustment for race Performed By: #### L AB15 ####It Business Analyst: DANELLE MASON ([phone])[facility])[address] [place] [place] [address] Glucose [Mass/Vol] 240 mg/dL High 70-100 [facility] Comment on above: Performed By: #### L AB15 ####It Business Analyst: DANELLE MASON ([phone])[facility])[address] [place] [place] [address] Potassium [Moles/Vol] 4.7 mmol/L Normal 3.5-5.1 [facility] Comment on above: Performed By: #### L AB15 ####It Business Analyst: DANELLE MASON ([phone])[facility])[address] [place] [address] [place] Sodium [Moles/Vol] 126 mmol/L Low 135-145 [facility] Comment on above: Performed By: #### L AB15 ####It Business Analyst: DANELLE MASON ([phone])[facility])[address] [place] [place] [address] Urea nitrogen [Mass/Vol] 52 mg/dL High 7-17 [facility] Comment on above: Performed By: #### L AB15 ####It Business Analyst: DANELLE MASON ([phone])[facility])[address] [place] [address] Anion gap [Moles/Vol] 13 mmol/L Normal 3-13 [facility] Comment on above: Performed By: #### L AB15 ####It Business Analyst: DANELLE MASON ([phone])[facility])[address] [place] [place] [address] Calcium [Mass/Vol] 8.9 mg/dL Normal 8.4-10.4 [facility] Comment on above: Performed By: #### L AB15 ####It Business Analyst: DANELLE MASON ([phone])[facility])[address] [place] [place] [address] Chloride [Moles/Vol] 92 mmol/L Low 98-107 [facility] Comment on above: Performed By: #### L AB15 ####It Business Analyst: DANELLE MASON ([phone])[facility] [place] [place] [address] CO2 [Moles/Vol] 19 mmol/L Low 22-30 [facility] Comment on above: Performed By: #### L AB15 ####It Business Analyst: DANELLE MASON ([phone])[facility] [place] [address] Creatinine [Mass/Vol] 4.39 mg/dL High 0.52-1.04 [facility] Comment on above: Performed By: #### L AB15 ####It Business Analyst: DANELLE MASON ([phone])[facility] [place] [address] [place] GLOMERULAR FILTRATION RATE ML/MIN/1.73 SQ M.PREDICTED 10.2 mL/min/1.73m*2 Low >60.0 [facility] Comment on above: Result Comment: Calc ulation based on the Chronic Kidney Disease Epidemiology Collaboration (CKD-EPI) equation refit without adjustment for race Performed By: #### L AB15 ####It Business Analyst: DANELLE [phone])[facility] [place] [address] [place] Glucose [Mass/Vol] 272 mg/dL High 70-100 [facility] Comment on above: Performed By: #### L AB15 ####It Business Analyst: DANELLE MASON ([phone])[facility] [place] [address] [place] Potassium [Moles/Vol] 4.9 mmol/L Normal 3.5-5.1 [facility] Comment on above: Performed By: #### L AB15 ####It Business Analyst: DANELLE MASON ([phone])[facility] [place] [place] [address] Sodium [Moles/Vol] 125 mmol/L Low 135-145 [facility] Comment on above: Performed By: #### L AB15 ####It Business Analyst: DANELLE MASON ([phone])[facility] [place] [address] [place] Urea nitrogen [Mass/Vol] 57 mg/dL High 7-17 [facility] Comment on above: Performed By: #### L AB15 ####It Business Analyst: DANELLE MASON ([phone])[facility] [place] [address] Anion gap [Moles/Vol] 12 mmol/L Normal 3-13 [facility] Comment on above: Performed By: #### L AB15, [id number] ####It Business Analyst: DANELLE MASON ([phone])[facility] [place] [address] [place] Calcium [Mass/Vol] 8.7 mg/dL Normal 8.4-10.4 [facility] Comment on above: Performed By: #### L AB15, [id number] ####It Business Analyst: DANELLE MASON ([phone])[facility] ([facility])[address] [place] [address] [place] Chloride [Moles/Vol] 96 mmol/L Low 98-107 [facility] Comment on above: Performed By: #### L AB15, [id number] ####It Business Analyst: DANELLE MASON ([phone])[facility] ([facility])[address] [place] [place] [address] CO2 [Moles/Vol] 18 mmol/L Low 22-30 [facility] Comment on above: Performed By: #### L AB15, [id number] ####It Business Analyst: DANELLE MASON ([phone])[facility])[address] [place] [address] Creatinine [Mass/Vol] 3.54 mg/dL High 0.52-1.04 [facility] Comment on above: Performed By: #### L AB15, [id number] ####It Business Analyst: DANELLE MASON ([phone])[facility])[address] [place] [address] GLOMERULAR FILTRATION RATE ML/MIN/1.73 SQ M.PREDICTED 13.2 mL/min/1.73m*2 Low >60.0 [facility] Comment on above: Result Comment: Calc ulation based on the Chronic Kidney Disease Epidemiology Collaboration (CKD-EPI) equation refit without adjustment for race Performed By: #### L AB15, [id number] ####It Business Analyst: DANELLE MASON ([phone])[facility] ([facility])[address] [place] [address] Glucose [Mass/Vol] 208 mg/dL High 70-100 [facility] Comment on above: Performed By: #### L AB15, [id number] ####It Business Analyst: DANELLE MASON ([phone])[facility])[address] [place] [address] [place] Potassium [Moles/Vol] 4.5 mmol/L Normal 3.5-5.1 [facility] Comment on above: Performed By: #### L AB15, [id number] ####It Business Analyst: DANELLE MASON ([phone])[facility])[address] [place] [address] [place] Sodium [Moles/Vol] 126 mmol/L Low 135-145 [facility] Comment on above: Performed By: #### L AB15, [id number] ####It Business Analyst: DANELLE MASON ([phone])[facility] ([facility])[address] [place] [address] Urea nitrogen [Mass/Vol] 50 mg/dL High 7-17 [facility] Comment on above: Performed By: #### L AB15, [id number] ####It Business Analyst: DANELLE MASON ([phone])[facility] ([facility])[address] [place] [address] CALCIUM, IONIZEDon CALCIUM IONIZED 4.40 mg/dL Normal 4.30-5.20 [facility] Comment on above: Order Comment: Obtai n PRN and check ionized Ca level if serum Ca level less than 8.0 Performed By: #### L AB54 ####It Business Analyst: DANELLE MASON ([phone])[facility] ([facility])[address] [place] [address] PH, IONIZED CALCIUM 7.33 Normal 7.31-7.46 [facility] Comment on above: Order Comment: Obtai n PRN and check ionized Ca level if serum Ca level less than 8.0 Performed By: #### L AB54 ####It Business Analyst: DANELLE MASON ([phone])[facility] ([facility])[address] [place] [address] CARECOORDon 01-29-2024 CARECOORD Normal [facility] CBC (HEMOGRAM)on 01-29-2024 Erythrocyte distribution width (RBC) [Ratio] 16.2 % High 11.5-15.0 [facility] Comment on above: Performed By: #### L AB294 ####It Business Analyst: DANELLE MASON ([phone])[facility])[address] [place] [place] [address] Hematocrit (Bld) [Volume fraction] 23.3 % Low 35.0-47.0 [facility] Comment on above: Performed By: #### L AB294 ####It Business Analyst: DANELLE [phone])[facility])[address] [place] [address] Hemoglobin (Bld) [Mass/Vol] 7.8 g/dL Low 11.7-16.0 [facility] Comment on above: Performed By: #### L AB294 ####It Business Analyst: DANELLE MASON ([phone])[facility])[address] [place] [place] [address] MCH (RBC) [Entitic mass] 29.0 pg Normal 26.0-34.0 [facility] Comment on above: Performed By: #### L AB294 ####It Business Analyst: DANELLE MASON ([phone])[facility])[address] [place] [place] [address] MCHC 33.5 % Normal 30.5-36.0 [facility] Comment on above: Performed By: #### L AB294 ####It Business Analyst: DANELLE MASON ([phone])[facility] ([facility])[address] [place] [address] MCV (RBC) [Entitic vol] 86.6 fL Normal 77.0-99.0 [facility] Comment on above: Performed By: #### L AB294 ####It Business Analyst: DANELLE MASON ([phone])[facility])[address] [place] [place] [address] Platelet mean volume (Bld) [Entitic vol] 9.4 fL Normal 9.0-12.7 [facility] Comment on above: Performed By: #### L AB294 ####It Business Analyst: DANELLE MASON ([phone])[facility])[address] [place] [place] [address] Platelets (Bld) [#/Vol] 152 10*3/uL Normal 140-440 [facility] Comment on above: Performed By: #### L AB294 ####It Business Analyst: DANELLE MASON ([phone])[facility])[address] [place] [place] [address] RBC (Bld) [#/Vol] 2.69 10*6/uL Low 3.80-5.20 [facility] Comment on above: Performed By: #### L AB294 ####It Business Analyst: DANELLE MASON ([phone])[facility])[address] [place] [place] [address] WBC (Bld) [#/Vol] 11.3 10*3/uL High 3.6-10.7 [facility] Comment on above: Performed By: #### L AB294 ####It Business Analyst: DANELLE MASON ([phone])[facility])[address] [place] [address] CREATININE, URINE, RANDOMon 01-29-2024 CREATININE, URINE 101.0 mg/dL Normal No Range [facility] Comment on above: Performed By: #### L AB420, [id number], [id number] ####It Business Analyst: DANELLE MASON ([phone])[facility])[address] [place] [place] [address] HEMOGLOBIN AND HEMATOCRIT, B LOODon 01-29-2024 Hematocrit (Bld) [Volume fraction] 29.1 % Low 35.0-47.0 [facility] Comment on above: Order Comment: Recom mend 1 hour post transfusion Performed By: #### L AB753 ####It Business Analyst: DANELLE MASON ([phone])[facility])[address] [place] [place] [address] Hemoglobin (Bld) [Mass/Vol] 9.7 g/dL Low 11.7-16.0 [facility] Comment on above: Order Comment: Recom mend 1 hour post transfusion Performed By: #### L AB753 ####It Business Analyst: DANELLE MASON ([phone])[facility])[address] [place] [address] HEPATITIS B SURFACE ANTIBODY on 01-29-2024 HEPATITIS B VIRUS SURFACE AB <8.0 Normal [facility] Comment on above: Result Comment: DEE Marrero COMMENTS:Interpretation:<8.0 Non-Reactive8.0-11.9 Equivocal>= 12.0 Ab DetectedNote: If an equivocal result is interpreted, an antibody status is unable to be determined. Collect new specimen if clinically indicated. Performed By: #### L AB472, [id number] ####It Business Analyst: DANELLE MASON ([phone])[facility])[address] [place] [address] HEPATITIS B SURFACE ANTIGENo n 01-29-2024 HEPATITIS B VIRUS SURFACE AG Not detected Normal Not Detected [facility] Comment on above: Performed By: #### L AB472, [id number] ####It Business Analyst: DANELLE MASON ([phone])[facility])[address] [place] [place] [address] IDNon 01-29-2024 IDN Normal [facility] MAGNESIUMon 01-29-2024 Magnesium [Mass/Vol] 2.4 mg/dL High 1.6-2.3 [facility] Comment on above: Performed By: #### L AB15, [id number] ####It Business Analyst: DANELLE MASON ([phone])[facility] ([facility])[address] [place] [place] [address] OSMOLALITY, SERUMon 01-29-20 24 OSMOLALITY, SERUM 295 mOsm/kg Normal 280-300 [facility] Comment on above: Performed By: #### L AB107 ####It Business Analyst: DANELLE MASON ([phone])[facility])[address] [place] [address] OSMOLALITY, URINEon 01-29-20 24 OSMOLALITY, URINE 291 mOsm/kg Low 300-1000 [facility] Comment on above: Performed By: #### L AB420, [id number], [id number] ####It Business Analyst: DANELLE MASON ([phone])[facility])[address] [place] [address] Progress Noteon 01-29-2024 Progress Note [facility] Progress Note Normal [facility] Progress Note Called sister per patient request Updated to plan of day - plan for VAS cath + dialysis Normal [facility] Progress Note Normal [facility] Progress Note Normal [facility] Progress Note Normal [facility] SODIUM, URINE, RANDOMon - Sodium (U) [Moles/Vol] 21 mmol/L Low 30-90 [facility] Comment on above: Performed By: #### L AB420, [id number], [id number] ####It Business Analyst: DANELLE MASON ([phone])[facility])[address] [place] [place] [address] SPECIFIC GRAVITY, URINE DIPS TICKon 01-29-2024 Specific gravity (U) [Rel density] 1.030 Normal 1.005 - 1.030 [facility] Comment on above: Performed By: #### L [id number] ####It Business Analyst: DANELLE MASON ([phone])[facility] ([facility])[address] [place] [address] XR CHEST 1 VIEWon 01-29-2024 XR CHEST 1 VIEW Normal [facility] XR CHEST 1 VIEW Normal [facility] BASIC METABOLIC PANELon - Anion gap [Moles/Vol] 10 mmol/L Normal 3-13 [facility] Comment on above: Performed By: #### L AB103, LAB15 ####It Business Analyst: DANELLE MASON ([phone])[facility] ([facility])[address] [place] [address] [place] Calcium [Mass/Vol] 8.6 mg/dL Normal 8.4-10.4 [facility] Comment on above: Performed By: #### L AB103, LAB15 ####It Business Analyst: DANELLE MASON ([phone])[facility] ([facility])[address] [place] [address] [place] Chloride [Moles/Vol] 95 mmol/L Low 98-107 [facility] Comment on above: Performed By: #### L AB103, LAB15 ####It Business Analyst: DANELLE MASON ([phone])[facility])[address] [place] [address] [place] CO2 [Moles/Vol] 19 mmol/L Low 22-30 [facility] Comment on above: Performed By: #### L AB103, LAB15 ####It Business Analyst: DANELLE MASON ([phone])[facility])[address] [place] [place] [address] Creatinine [Mass/Vol] 2.52 mg/dL High 0.52-1.04 [facility] Comment on above: Performed By: #### L AB103, LAB15 ####It Business Analyst: DANELLE MASON ([phone])[facility])[address] [place] [place] [address] GLOMERULAR FILTRATION RATE ML/MIN/1.73 SQ M.PREDICTED 19.9 mL/min/1.73m*2 Low >60.0 [facility] Comment on above: Result Comment: Calc ulation based on the Chronic Kidney Disease Epidemiology Collaboration (CKD-EPI) equation refit without adjustment for race Performed By: #### L AB103, LAB15 ####It Business Analyst: DANELLE MASON ([phone])[facility] ([facility])[address] [place] [place] [address] Glucose [Mass/Vol] 260 mg/dL High 70-100 [facility] Comment on above: Performed By: #### L AB103, LAB15 ####It Business Analyst: DANELLE MASON ([phone])[facility])[address] [place] [place] [address] Potassium [Moles/Vol] 4.2 mmol/L Normal 3.5-5.1 [facility] Comment on above: Performed By: #### L AB103, LAB15 ####It Business Analyst: DANELLE MASON ([phone])[facility])[address] [place] [address] [place] Sodium [Moles/Vol] 123 mmol/L Low 135-145 [facility] Comment on above: Performed By: #### L AB103, LAB15 ####It Business Analyst: DANELLE MASON ([phone])[facility])[address] [place] [address] [place] Urea nitrogen [Mass/Vol] 41 mg/dL High 7-17 [facility] Comment on above: Performed By: #### L AB103, LAB15 ####It Business Analyst: DANELLE MASON ([phone])[facility])[address] [place] [address] CARECOORDon 01-28-2024 CARECOORD Normal [facility] CBC (HEMOGRAM)on 01-28-2024 Erythrocyte distribution width (RBC) [Ratio] 16.0 % High 11.5-15.0 [facility] Comment on above: Performed By: #### L AB294 ####It Business Analyst: DANELLE MASON ([phone])[facility])[address] [place] [place] [address] Hematocrit (Bld) [Volume fraction] 24.7 % Low 35.0-47.0 [facility] Comment on above: Performed By: #### L AB294 ####It Business Analyst: DANELLE MASON ([phone])[facility])[address] [place] [place] [address] Hemoglobin (Bld) [Mass/Vol] 8.1 g/dL Low 11.7-16.0 [facility] Comment on above: Performed By: #### L AB294 ####It Business Analyst: DANELLE MASON ([phone])[facility])[address] [place] [address] MCH (RBC) [Entitic mass] 29.2 pg Normal 26.0-34.0 [facility] Comment on above: Performed By: #### L AB294 ####It Business Analyst: DANELLE MASON ([phone])[facility])[address] [place] [address] MCHC 32.8 % Normal 30.5-36.0 [facility] Comment on above: Performed By: #### L AB294 ####It Business Analyst: DANELLE MASON ([phone])[facility])[address] [place] [address] MCV (RBC) [Entitic vol] 89.2 fL Normal 77.0-99.0 [facility] Comment on above: Performed By: #### L AB294 ####It Business Analyst: DANELLE MASON ([phone])[facility])[address] [place] [address] Platelet mean volume (Bld) [Entitic vol] 9.3 fL Normal 9.0-12.7 [facility] Comment on above: Performed By: #### L AB294 ####It Business Analyst: DANELLE MASON ([phone])[facility])[address] [place] [place] [address] Platelets (Bld) [#/Vol] 148 10*3/uL Normal 140-440 [facility] Comment on above: Performed By: #### L AB294 ####It Business Analyst: DANELLE MASON ([phone])[facility])[address] [place] [place] [address] RBC (Bld) [#/Vol] 2.77 10*6/uL Low 3.80-5.20 [facility] Comment on above: Performed By: #### L AB294 ####It Business Analyst: DANELLE MASON ([phone])[facility])[address] [place] [address] WBC (Bld) [#/Vol] 11.1 10*3/uL High 3.6-10.7 [facility] Comment on above: Performed By: #### L AB294 ####It Business Analyst: DANELLE MASON ([phone])[facility])[address] [place] [address] [place] IDNon 01-28-2024 IDN Normal [facility] MAGNESIUMon 01-28-2024 Magnesium [Mass/Vol] 2.0 mg/dL Normal 1.6-2.3 [facility] Comment on above: Performed By: #### L AB103, LAB15 ####It Business Analyst: DANELLE MASON ([phone])[facility])[address] [place] [address] Progress Noteon 01-28-2024 Progress Note Normal [facility] Progress Note Normal [facility] Progress Note Normal [facility] Progress Note Normal [facility] XR CHEST 1 VIEWon 01-28-2024 XR CHEST 1 VIEW Normal [facility] BASIC METABOLIC PANELon 12-31 Anion gap [Moles/Vol] 11 mmol/L Normal 3-13 [facility] Comment on above: Performed By: #### L AB15 ####It Business Analyst: DANELLE MASON ([phone])[facility])[address] [place] [place] [address] Calcium [Mass/Vol] 8.5 mg/dL Normal 8.4-10.4 [facility] Comment on above: Performed By: #### L AB15 ####It Business Analyst: DANELLE MASON ([phone])[facility])[address] [place] [place] [address] Chloride [Moles/Vol] 94 mmol/L Low 98-107 [facility] Comment on above: Performed By: #### L AB15 ####It Business Analyst: DANELLE MASON ([phone])[facility])[address] [place] [place] [address] CO2 [Moles/Vol] 20 mmol/L Low 22-30 [facility] Comment on above: Performed By: #### L AB15 ####It Business Analyst: DANELLE MASON ([phone])[facility])[address] [place] [place] [address] Creatinine [Mass/Vol] 1.93 mg/dL High 0.52-1.04 [facility] Comment on above: Performed By: #### L AB15 ####It Business Analyst: DANELLE MASON ([phone])[facility])[address] [place] [place] [address] GLOMERULAR FILTRATION RATE ML/MIN/1.73 SQ M.PREDICTED 27.4 mL/min/1.73m*2 Low >60.0 [facility] Comment on above: Result Comment: Calc ulation based on the Chronic Kidney Disease Epidemiology Collaboration (CKD-EPI) equation refit without adjustment for race Performed By: #### L AB15 ####It Business Analyst: DANELLE MASON ([phone])[facility])[address] [place] [place] [address] Glucose [Mass/Vol] 357 mg/dL High 70-100 [facility] Comment on above: Performed By: #### L AB15 ####It Business Analyst: DANELLE MASON ([phone])[facility])[address] [place] [place] [address] Potassium [Moles/Vol] 3.4 mmol/L Low 3.5-5.1 [facility] Comment on above: Performed By: #### L AB15 ####It Business Analyst: DANELLE MASON ([phone])[facility])[address] [place] [place] [address] Sodium [Moles/Vol] 126 mmol/L Low 135-145 [facility] Comment on above: Performed By: #### L AB15 ####It Business Analyst: DANELLE MASON ([phone])[facility])[address] [place] [place] [address] Urea nitrogen [Mass/Vol] 38 mg/dL High 7-17 [facility] Comment on above: Performed By: #### L AB15 ####It Business Analyst: DANELLE MASON ([phone])[facility])[address] [place] [address] Anion gap [Moles/Vol] 9 mmol/L Normal 3-13 [facility] Comment on above: Performed By: #### L AB103, LAB15 ####It Business Analyst: DANELLE MASON ([phone])[facility])[address] [place] [place] [address] Calcium [Mass/Vol] 8.6 mg/dL Normal 8.4-10.4 [facility] Comment on above: Performed By: #### L AB103, LAB15 ####It Business Analyst: DANELLE MASON ([phone])[facility] ([facility])[address] [place] [address] Chloride [Moles/Vol] 98 mmol/L Normal 98-107 [facility] Comment on above: Performed By: #### L AB103, LAB15 ####It Business Analyst: DANELLE MASON ([phone])[facility] [place] [place] [address] CO2 [Moles/Vol] 21 mmol/L Low 22-30 [facility] Comment on above: Performed By: #### L AB103, LAB15 ####It Business Analyst: DANELLE MASON ([phone])[facility])[address] [place] [place] [address] Creatinine [Mass/Vol] 1.76 mg/dL High 0.52-1.04 [facility] Comment on above: Performed By: #### L AB103, LAB15 ####It Business Analyst: DANELLE MASON ([phone])[facility])[address] [place] [place] [address] GLOMERULAR FILTRATION RATE ML/MIN/1.73 SQ M.PREDICTED 30.6 mL/min/1.73m*2 Low >60.0 [facility] Comment on above: Result Comment: Calc ulation based on the Chronic Kidney Disease Epidemiology Collaboration (CKD-EPI) equation refit without adjustment for race Performed By: #### L AB103, LAB15 ####It Business Analyst: DANELLE MASON ([phone])[facility])[address] [place] [place] [address] Glucose [Mass/Vol] 186 mg/dL High 70-100 [facility] Comment on above: Performed By: #### L AB103, LAB15 ####It Business Analyst: DANELLE MASON ([phone])[facility])[address] [place] [place] [address] Potassium [Moles/Vol] 3.9 mmol/L Normal 3.5-5.1 [facility] Comment on above: Performed By: #### L AB103, LAB15 ####It Business Analyst: DANELLE MASON ([phone])[facility])[address] [place] [place] [address] Sodium [Moles/Vol] 128 mmol/L Low 135-145 [facility] Comment on above: Performed By: #### L AB103, LAB15 ####It Business Analyst: DANELLE MASON ([phone])[facility])[address] [place] [place] [address] Urea nitrogen [Mass/Vol] 34 mg/dL High 7-17 [facility] Comment on above: Performed By: #### L AB103, LAB15 ####It Business Analyst: DANELLE MASON ([phone])[facility])[address] [place] [address] BLOOD TYPE AND SCREEN GELon 01-27-2024 ABO GROUPING A Normal [facility] Comment on above: Performed By: #### L AB276 ####It Business Analyst: DANELLE MASON ([phone])[facility] ([facility])[address] [place] [address] RH TYPE IN BLOOD Positive Normal [facility] Comment on above: Performed By: #### L AB276 ####It Business Analyst: DANELLE MASON ([phone])[facility] ([facility])[address] [place] [place] [address] CARECOORDon 01-27-2024 CARECOORD Normal [facility] CBC (HEMOGRAM)on 01-27-2024 Erythrocyte distribution width (RBC) [Ratio] 15.4 % High 11.5-15.0 [facility] Comment on above: Performed By: #### L AB294 ####It Business Analyst: DANELLE MASON ([phone])[facility])[address] [place] [place] [address] Hematocrit (Bld) [Volume fraction] 26.7 % Low 35.0-47.0 [facility] Comment on above: Performed By: #### L AB294 ####It Business Analyst: DANELLE [phone])[facility] ([address] Hemoglobin (Bld) [Mass/Vol] 8.8 g/dL Low 11.7-16.0 [facility] Comment on above: Performed By: #### L AB294 ####It Business Analyst: DANELLE MASON ([phone])[facility] ([facility])[address] [place] [address] MCH (RBC) [Entitic mass] 29.4 pg Normal 26.0-34.0 [facility] Comment on above: Performed By: #### L AB294 ####It Business Analyst: DANELLE MASON ([phone])[facility])[address] [place] [address] MCHC 33.0 % Normal 30.5-36.0 [facility] Comment on above: Performed By: #### L AB294 ####It Business Analyst: DANELLE MASON ([phone])[facility] ([facility])[address] [place] [place] [address] MCV (RBC) [Entitic vol] 89.3 fL Normal 77.0-99.0 [facility] Comment on above: Performed By: #### L AB294 ####It Business Analyst: DANELLE MASON ([phone])[facility] ([facility])[address] [place] [place] [address] Platelet mean volume (Bld) [Entitic vol] 9.1 fL Normal 9.0-12.7 [facility] Comment on above: Performed By: #### L AB294 ####It Business Analyst: DANELLE MASON ([phone])[facility] ([facility])[address] [place] [address] Platelets (Bld) [#/Vol] 153 10*3/uL Normal 140-440 [facility] Comment on above: Performed By: #### L AB294 ####It Business Analyst: DANELLE MASON ([phone])[facility])[address] [place] [place] [address] RBC (Bld) [#/Vol] 2.99 10*6/uL Low 3.80-5.20 [facility] Comment on above: Performed By: #### L [id number] ####It Business Analyst: DANELLE MASON ([phone])[facility])[address] [place] [place] [address] WBC (Bld) [#/Vol] 12.6 10*3/uL High 3.6-10.7 [facility] Comment on above: Performed By: #### L [id number] ####It Business Analyst: DANELLE MASON ([phone])[facility])[address] [place] [place] [address] Erythrocyte distribution width (RBC) [Ratio] 14.6 % Normal 11.5-15.0 [facility] Comment on above: Performed By: #### L [id number] ####It Business Analyst: DANELLE MASON ([phone])[facility])[address] [place] [place] [address] Hematocrit (Bld) [Volume fraction] 23.3 % Low 35.0-47.0 [facility] Comment on above: Performed By: #### L [id number] ####It Business Analyst: DANELLE MASON ([phone])[facility])[address] [place] [place] [address] Hemoglobin (Bld) [Mass/Vol] 7.6 g/dL Low 11.7-16.0 [facility] Comment on above: Performed By: #### L [id number] ####It Business Analyst: DANELLE MASON ([phone])[facility])[address] [place] [place] [address] MCH (RBC) [Entitic mass] 29.8 pg Normal 26.0-34.0 [facility] Comment on above: Performed By: #### L [id number] ####It Business Analyst: DANELLE MASON ([phone])[facility])[address] [place] [place] [address] MCHC 32.6 % Normal 30.5-36.0 [facility] [facility] Comment on above: Performed By: #### L [id number] ####It Business Analyst: DANELLE MASON ([phone])[facility] ([facility])[address] [place] [address] MCV (RBC) [Entitic vol] 91.4 fL Normal 77.0-99.0 [facility] Comment on above: Performed By: #### L [id number] ####It Business Analyst: DANELLE MASON ([phone])[facility])[address] [place] [address] Platelet mean volume (Bld) [Entitic vol] 9.2 fL Normal 9.0-12.7 [facility] Comment on above: Performed By: #### L [id number] ####It Business Analyst: DANELLE MASON ([phone])[facility])[address] [place] [address] Platelets (Bld) [#/Vol] 160 10*3/uL Normal 140-440 [facility] Comment on above: Performed By: #### L AB294 ####It Business Analyst: DANELLE MASON ([phone])[facility])[address] [place] [address] RBC (Bld) [#/Vol] 2.55 10*6/uL Low 3.80-5.20 [facility] Comment on above: Performed By: #### L AB294 ####It Business Analyst: DANELLE MASON ([phone])[facility])[address] [place] [address] WBC (Bld) [#/Vol] 10.5 10*3/uL Normal 3.6-10.7 [facility] Comment on above: Performed By: #### L AB294 ####It Business Analyst: DANELLE MASON ([phone])[facility])[address] [place] [address] CREATININE, URINE, RANDOMon 01-27-2024 CREATININE, URINE 132.7 mg/dL Normal No Range [facility] Comment on above: Performed By: #### L AB384, [id number], [id number], [id number] ####It Business Analyst: DANELLE MASON ([phone])[facility])[address] [place] [address] Consulton 01-27-2024 Consult Normal [facility] MAGNESIUMon 01-27-2024 Magnesium [Mass/Vol] 1.8 mg/dL Normal 1.6-2.3 [facility] Comment on above: Performed By: #### L AB103, LAB15 ####It Business Analyst: DANELLE MASON ([phone])[facility])[address] [place] [place] [address] OSMOLALITY, SERUMon 01-27-20 24 OSMOLALITY, SERUM 289 mOsm/kg Normal 280-300 [facility] Comment on above: Result Comment: DEE Marrero COMMENTS:Repeated Performed By: #### L AB107 ####It Business Analyst: DANELLE MASON ([phone])[facility])[address] [place] [address] OSMOLALITY, URINEon 01-27-20 24 OSMOLALITY, URINE 295 mOsm/kg Low 300-1000 [facility] Comment on above: Performed By: #### L AB384, [id number], [id number], DGU068 ####It Business Analyst: DANELLE MASON ([phone])[facility])[address] [place] [address] Progress Noteon 01-27-2024 Progress Note Normal [facility] Progress Note Normal [facility] Progress Note Normal [facility] Progress Note Normal [facility] Progress Note Normal [facility] Progress Note Normal [facility] SODIUM, URINE, RANDOMon 12-31 Sodium (U) [Moles/Vol] 45 mmol/L Normal 30-90 [facility] Comment on above: Performed By: #### L AB384, MON102, [id number], [id number] ####It Business Analyst: DANELLE MASON ([phone])[facility])[address] [place] [place] [address] UREA NITROGEN, URINEon 01-26 UREA NITROGEN, URINE 190 mg/dL Normal No Range [facility] Comment on above: Performed By: #### L AB384, [id number], [id number], [id number] ####It Business Analyst: DANELLE MASON ([phone])[facility] ([facility])[address] [place] [address] [place] XR CHEST 1 VIEWon 01-27-2024 XR CHEST 1 VIEW Normal [facility] BASIC METABOLIC PANELon 12-31 Anion gap [Moles/Vol] 6 mmol/L Normal 3-13 [facility] Comment on above: Performed By: #### L AB15 ####It Business Analyst: DANELLE MASON ([phone])[facility] [place] [address] Calcium [Mass/Vol] 8.4 mg/dL Normal 8.4-10.4 [facility] Comment on above: Performed By: #### L AB15 ####It Business Analyst: DANELLE AMSON ([phone])[facility])[address] [place] [address] [place] Chloride [Moles/Vol] 102 mmol/L Normal 98-107 [facility] Comment on above: Performed By: #### L AB15 ####It Business Analyst: DANELLE MASON ([phone])[facility] [place] [address] [place] CO2 [Moles/Vol] 21 mmol/L Low 22-30 [facility] Comment on above: Performed By: #### L AB15 ####It Business Analyst: DANELLE MASON ([phone])[facility] [place] [address] [place] Creatinine [Mass/Vol] 1.12 mg/dL High 0.52-1.04 [facility] Comment on above: Performed By: #### L AB15 ####It Business Analyst: DANELLE MASON ([phone])[facility])[address] [place] [address] [place] GLOMERULAR FILTRATION RATE ML/MIN/1.73 SQ M.PREDICTED 52.7 mL/min/1.73m*2 Low >60.0 [facility] Comment on above: Result Comment: Calc ulation based on the Chronic Kidney Disease Epidemiology Collaboration (CKD-EPI) equation refit without adjustment for race Performed By: #### L AB15 ####It Business Analyst: DANELLE MASON ([phone])[facility] [place] [address] [place] Glucose [Mass/Vol] 270 mg/dL High 70-100 [facility] Comment on above: Performed By: #### L AB15 ####It Business Analyst: DANELLE MASON ([phone])[facility])[address] [place] [address] Potassium [Moles/Vol] 4.2 mmol/L Normal 3.5-5.1 [facility] Comment on above: Performed By: #### L AB15 ####It Business Analyst: DANELLE MASON ([phone])[facility])[address] [place] [address] [place] Sodium [Moles/Vol] 130 mmol/L Low 135-145 [facility] Comment on above: Performed By: #### L AB15 ####It Business Analyst: DANELLE MASON ([phone])[facility])[address] [place] [address] [place] Urea nitrogen [Mass/Vol] 29 mg/dL High 7-17 [facility] Comment on above: Performed By: #### L AB15 ####It Business Analyst: DANELLE MASON ([phone])[facility])[address] [place] [address] [place] Anion gap [Moles/Vol] 6 mmol/L Normal 3-13 [facility] Comment on above: Performed By: #### L AB15, [id number] ####It Business Analyst: DANELLE MSAON ([phone])[facility])[address] [place] [address] [place] Calcium [Mass/Vol] 8.9 mg/dL Normal 8.4-10.4 [facility] Comment on above: Performed By: #### L AB15, [id number] ####It Business Analyst: DANELLE MASON ([phone])[facility])[address] [place] [address] [place] Chloride [Moles/Vol] 107 mmol/L Normal 98-107 [facility] Comment on above: Performed By: #### L AB15, [id number] ####It Business Analyst: DANELLE MASON ([phone])[facility])[address] [place] [address] CO2 [Moles/Vol] 23 mmol/L Normal 22-30 [facility] Comment on above: Performed By: #### L AB15, [id number] ####It Business Analyst: DANELLE MASON ([phone])[facility])[address] [place] [place] [address] Creatinine [Mass/Vol] 0.77 mg/dL Normal 0.52-1.04 [facility] Comment on above: Performed By: #### L AB15, [id number] ####It Business Analyst: DANELLE MASON ([phone])[facility])[address] [place] [place] [address] GLOMERULAR FILTRATION RATE ML/MIN/1.73 SQ M.PREDICTED 82.6 mL/min/1.73m*2 Normal >60.0 [facility] Comment on above: Result Comment: Calc ulation based on the Chronic Kidney Disease Epidemiology Collaboration (CKD-EPI) equation refit without adjustment for race Performed By: #### L AB15, [id number] ####It Business Analyst: DANELLE MASON ([phone])[facility])[address] [place] [address] [place] Glucose [Mass/Vol] 89 mg/dL Normal 70-100 [facility] Comment on above: Performed By: #### L AB15, [id number] ####It Business Analyst: DANELLE MASON ([phone])[facility])[address] [place] [address] [place] Potassium [Moles/Vol] 3.5 mmol/L Normal 3.5-5.1 [facility] Comment on above: Performed By: #### L AB15, [id number] ####It Business Analyst: DANELLE MASON ([phone])[facility])[address] [place] [address] Sodium [Moles/Vol] 135 mmol/L Normal 135-145 [facility] Comment on above: Performed By: #### L AB15, [id number] ####It Business Analyst: DANELLE MASON ([phone])[facility])[address] [place] [address] Urea nitrogen [Mass/Vol] 23 mg/dL High 7-17 [facility] Comment on above: Performed By: #### L AB15, [id number] ####It Business Analyst: DANELLE MASON ([phone])[facility])[address] [place] [address] CARECOORDon 01-26-2024 CARECOORD Normal [facility] CBC (HEMOGRAM)on 01-26-2024 Erythrocyte distribution width (RBC) [Ratio] 14.5 % Normal 11.5-15.0 [facility] Comment on above: Performed By: #### L AB294 ####It Business Analyst: DANELLE MASON ([phone])[facility])[address] [place] [place] [address] Hematocrit (Bld) [Volume fraction] 26.7 % Low 35.0-47.0 [facility] Comment on above: Performed By: #### L AB294 ####It Business Analyst: DANELLE MASON ([phone])[facility])[address] [place] [place] [address] Hemoglobin (Bld) [Mass/Vol] 8.8 g/dL Low 11.7-16.0 [facility] Comment on above: Performed By: #### L AB294 ####It Business Analyst: DANELLE MASON ([phone])[facility])[address] [place] [place] [address] IPF 2 Normal [facility] Comment on above: Performed By: #### L AB294 ####It Business Analyst: DANELLE MASON ([phone])[facility])[address] [place] [place] [address] MCH (RBC) [Entitic mass] 29.9 pg Normal 26.0-34.0 [facility] Comment on above: Performed By: #### L AB294 ####It Business Analyst: DANELLE MASON ([phone])[facility])[address] [place] [place] [address] MCHC 33.0 % Normal 30.5-36.0 [facility] Comment on above: Performed By: #### L AB294 ####It Business Analyst: DANELLE MASON ([phone])[facility])[address] [place] [place] [address] MCV (RBC) [Entitic vol] 90.8 fL Normal 77.0-99.0 [facility] Comment on above: Performed By: #### L AB294 ####It Business Analyst: DANELLE MASON ([phone])[facility])[address] [place] [address] Platelet mean volume (Bld) [Entitic vol] 9.4 fL Normal 9.0-12.7 [facility] Comment on above: Performed By: #### L AB294 ####It Business Analyst: DANELLE MASON ([phone])[facility])[address] [place] [address] Platelets (Bld) [#/Vol] 189 10*3/uL Normal 140-440 [facility] Comment on above: Performed By: #### L AB294 ####It Business Analyst: DANELLE MASON ([phone])[facility])[address] [place] [address] RBC (Bld) [#/Vol] 2.94 10*6/uL Low 3.80-5.20 [facility] Comment on above: Performed By: #### L AB294 ####It Business Analyst: DANELLE MASON ([phone])[facility])[address] [place] [address] WBC (Bld) [#/Vol] 11.7 10*3/uL High 3.6-10.7 [facility] Comment on above: Performed By: #### L AB294 ####It Business Analyst: DANELLE MASON ([phone])[facility])[address] [place] [address] Consulton 01-26-2024 Consult Normal [facility] ECG 12-LEADon 01-26-2024 ECG 12-LEAD IMPRESSION: Atrial fibrillation PVC Repolarization abnormality, prob rate related Electronically Signed On 01-26-2024 07:33:35 EDT by Tobi Smith Normal [facility] [place] MODIFIED BARIUM WITH VIDE O AND SPEECHon 01-26-2024 [place] MODIFIED BARIUM WITH VIDEO AND SPEECH Normal [facility] IDNon 01-26-2024 IDN Normal [facility] MAGNESIUMon 01-26-2024 Magnesium [Mass/Vol] 2.0 mg/dL Normal 1.6-2.3 [facility] Comment on above: Performed By: #### L AB15, [id number] ####It Business Analyst: DANELLE MASON ([phone])[facility])[address] [place] [address] Nursing Noteon 01-26-2024 Nursing Note Patient did convert to Normal sinus rhythm. BP and urine output continue to be low after second fluid bolus. 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 Normal [facility] Nursing Note Normal [facility] Nursing Note Normal [facility] Progress Noteon 01-26-2024 Progress Note Normal [facility] Progress Note Normal [facility] Progress Note Normal [facility] Progress Note Normal [facility] Progress Note Normal [facility] XR CHEST 1 VIEWon 01-26-2024 XR CHEST 1 VIEW Normal [facility] BASIC METABOLIC PANELon 12-31 Anion gap [Moles/Vol] 3 mmol/L Normal 3-13 [facility] Comment on above: Performed By: #### L AB129, [id number], LAB15 ####It Business Analyst: DANELLE MASON ([phone])[facility])[address] [place] [address] Calcium [Mass/Vol] 8.9 mg/dL Normal 8.4-10.4 [facility] Comment on above: Performed By: #### L AB129, ITZ301, LAB15 ####It Business Analyst: DANELLE MASON ([phone])[facility])[address] [place] [address] Chloride [Moles/Vol] 112 mmol/L High 98-107 [facility] Comment on above: Performed By: #### L AB129, TCA103, LAB15 ####It Business Analyst: DANELLE MASON ([phone])[facility])[address] [place] [address] CO2 [Moles/Vol] 22 mmol/L Normal 22-30 [facility] Comment on above: Performed By: #### L AB129, [id number], LAB15 ####It Business Analyst: DANELLE MASON ([phone])[facility])[address] [place] [address] Creatinine [Mass/Vol] 0.86 mg/dL Normal 0.52-1.04 [facility] Comment on above: Performed By: #### L AB129, [id number], LAB15 ####It Business Analyst: DANELLE MASON ([phone])[facility])[address] [place] [address] [place] GLOMERULAR FILTRATION RATE ML/MIN/1.73 SQ M.PREDICTED 72.3 mL/min/1.73m*2 Normal >60.0 [facility] Comment on above: Result Comment: Calc ulation based on the Chronic Kidney Disease Epidemiology Collaboration (CKD-EPI) equation refit without adjustment for race Performed By: #### L AB129, [id number], LAB15 ####It Business Analyst: DANELLE MASON ([phone])[facility])[address] [place] [address] Glucose [Mass/Vol] 60 mg/dL Low 70-100 [facility] Comment on above: Performed By: #### L AB129, [id number], LAB15 ####It Business Analyst: DANELLE MASON ([phone])[facility])[address] [place] [address] Potassium [Moles/Vol] 4.4 mmol/L Normal 3.5-5.1 [facility] Comment on above: Performed By: #### L AB129, [id number], LAB15 ####It Business Analyst: DANELLE MASON ([phone])[facility])[address] [place] [address] Sodium [Moles/Vol] 137 mmol/L Normal 135-145 [facility] Comment on above: Performed By: #### L AB129, RDQ144, LAB15 ####It Business Analyst: DANELLE MASON ([phone])[facility])[address] [place] [place] [address] Urea nitrogen [Mass/Vol] 28 mg/dL High 7-17 [facility] Comment on above: Performed By: #### L AB129, [id number], LAB15 ####It Business Analyst: DANELLE MASON ([phone])[facility])[address] [place] [address] CARECOORDon 01-25-2024 CARECOORD Normal [facility] CBC (HEMOGRAM)on 01-25-2024 Erythrocyte distribution width (RBC) [Ratio] 14.8 % Normal 11.5-15.0 [facility] Comment on above: Performed By: #### L AB294 ####It Business Analyst: DANELLE MASON ([phone])[facility])[address] [place] [place] [address] Hematocrit (Bld) [Volume fraction] 25.1 % Low 35.0-47.0 [facility] Comment on above: Performed By: #### L AB294 ####It Business Analyst: DANELLE MASON ([phone])[facility])[address] [place] [place] [address] Hemoglobin (Bld) [Mass/Vol] 8.1 g/dL Low 11.7-16.0 [facility] Comment on above: Performed By: #### L AB294 ####It Business Analyst: DANELLE MASON ([phone])[facility])[address] [place] [place] [address] MCH (RBC) [Entitic mass] 29.2 pg Normal 26.0-34.0 [facility] Comment on above: Performed By: #### L AB294 ####It Business Analyst: DANELLE MASON ([phone])[facility])[address] [place] [place] [address] MCHC 32.3 % Normal 30.5-36.0 [facility] Comment on above: Performed By: #### L AB294 ####It Business Analyst: DANELLE MASON ([phone])[facility])[address] [place] [place] [address] MCV (RBC) [Entitic vol] 90.6 fL Normal 77.0-99.0 [facility] Comment on above: Performed By: #### L AB294 ####It Business Analyst: DANELLE MASON ([phone])[facility])[address] [place] [place] [address] Platelet mean volume (Bld) [Entitic vol] 9.6 fL Normal 9.0-12.7 [facility] Comment on above: Performed By: #### L AB294 ####It Business Analyst: DANELLE MASON ([phone])[facility])[address] [place] [address] Platelets (Bld) [#/Vol] 114 10*3/uL Low 140-440 [facility] Comment on above: Performed By: #### L AB294 ####It Business Analyst: DANELLE MASON ([phone])[facility])[address] [place] [place] [address] RBC (Bld) [#/Vol] 2.77 10*6/uL Low 3.80-5.20 [facility] Comment on above: Performed By: #### L AB294 ####It Business Analyst: DANELLE MASON ([phone])[facility])[address] [place] [address] WBC (Bld) [#/Vol] 11.6 10*3/uL High 3.6-10.7 [facility] Comment on above: Performed By: #### L AB294 ####It Business Analyst: DANELLE MASON ([phone])[facility])[address] [place] [address] Consulton 01-25-2024 Consult Normal [facility] ECG 12-LEADon 01-25-2024 ECG 12-LEAD IMPRESSION: Sinus rhythm Right bundle branch block LEFT ANTERIOR FASCICULAR BLOCK Electronically Signed On 01-25-2024 19:49:52 EDT by Carlos Lafleur Normal [facility] FREE T4on 01-25-2024 Free T4 [Mass/Vol] 1.00 ng/dL Normal 0.78-2.19 [facility] Comment on above: Performed By: #### L AB127 ####It Business Analyst: DANELLE MASON ([phone])[facility])[address] [place] [place] [address] MAGNESIUMon 01-25-2024 Magnesium [Mass/Vol] 2.3 mg/dL Normal 1.6-2.3 [facility] Comment on above: Performed By: #### L AB129, [id number], LAB15 ####It Business Analyst: DANELLE MASON ([phone])[facility])[address] [place] [place] [address] Progress Noteon 01-25-2024 Progress Note Normal [facility] Progress Note Normal [facility] Progress Note Normal [facility] Progress Note [facility] THYROID STIMULATING HORMONEo n 01-25-2024 THYROID STIMULATING HORMONE 1.387 uIU/mL Normal 0.465-4.680 [facility] Comment on above: Performed By: #### L AB129, [id number], LAB15 ####It Business Analyst: DANELLE MASON ([phone])[facility] [place] [address] [place] XR CHEST 1 VIEWon 01-25-2024 XR CHEST 1 VIEW Normal [facility] BASIC METABOLIC PANELon 12-31 Anion gap [Moles/Vol] 7 mmol/L Normal 3-13 [facility] Comment on above: Performed By: #### L AB103, LAB15 ####It Business Analyst: DANELLE MASON ([phone])[facility] [place] [address] Calcium [Mass/Vol] 9.0 mg/dL Normal 8.4-10.4 [facility] Comment on above: Performed By: #### L AB103, LAB15 ####It Business Analyst: DANELLE MASON ([phone])[facility])[address] [place] [place] [address] Chloride [Moles/Vol] 108 mmol/L High 98-107 [facility] Comment on above: Performed By: #### L AB103, LAB15 ####It Business Analyst: DANELLE MASON ([phone])[facility] [place] [address] CO2 [Moles/Vol] 18 mmol/L Low 22-30 [facility] Comment on above: Performed By: #### L AB103, LAB15 ####It Business Analyst: DANELLE MASON ([phone])[facility])[address] [place] [place] [address] Creatinine [Mass/Vol] 0.97 mg/dL Normal 0.52-1.04 [facility] Comment on above: Performed By: #### L AB103, LAB15 ####It Business Analyst: DANELLE MASON ([phone])[facility])[address] [place] [place] [address] GLOMERULAR FILTRATION RATE ML/MIN/1.73 SQ M.PREDICTED 62.6 mL/min/1.73m*2 Normal >60.0 [facility] Comment on above: Result Comment: Calc ulation based on the Chronic Kidney Disease Epidemiology Collaboration (CKD-EPI) equation refit without adjustment for race Performed By: #### L AB103, LAB15 ####It Business Analyst: DANELLE MASON ([phone])[facility])[address] [place] [address] Glucose [Mass/Vol] 251 mg/dL High 70-100 [facility] Comment on above: Performed By: #### L AB103, LAB15 ####It Business Analyst: DANELLE MASON ([phone])[facility])[address] [place] [address] Potassium [Moles/Vol] 5.0 mmol/L Normal 3.5-5.1 [facility] Comment on above: Performed By: #### L AB103, LAB15 ####It Business Analyst: DANLELE MASON ([phone])[facility])[address] [place] [address] Sodium [Moles/Vol] 133 mmol/L Low 135-145 [facility] Comment on above: Performed By: #### L AB103, LAB15 ####It Business Analyst: DANELLE MASON ([phone])[facility])[address] [place] [address] Urea nitrogen [Mass/Vol] 26 mg/dL High 7-17 [facility] Comment on above: Performed By: #### L AB103, LAB15 ####It Business Analyst: DANELLE MASON ([phone])[facility])[address] [place] [place] [address] BLOOD GAS ARTERIALon 01-23- 024 Base excess Calc (Bld) [Moles/Vol] -2.3000 mmol/L Normal -3.0-3.0 [facility] Comment on above: Performed By: #### L AB76 ####It Business Analyst: DANELLE MASON ([phone])[facility])[address] [place] [address] [place] CO2 [Moles/Vol] 22.1 mmol/L Low 23.0-27.0 [facility] Comment on above: Performed By: #### L AB76 ####It Business Analyst: DANELLE MASON ([phone])[facility])[address] [place] [address] HCO3 (Bld) [Moles/Vol] 21.2 mmol/L Normal 21.0-25.0 [facility] Comment on above: Performed By: #### L [id number] ####It Business Analyst: DANELLE MASON ([phone])[facility] ([facility])[address] [place] [address] Hemoglobin (Bld) [Mass/Vol] 8.7 g/dL Normal Screen only [facility] Comment on above: Performed By: #### L AB76 ####It Business Analyst: DANELLE MASON ([phone])[facility])[address] [place] [address] OXYGEN SATURATION (%) IN ARTERIAL BLOOD 97.3 % Normal 95.0-100.0 [facility] Comment on above: Performed By: #### L AB76 ####It Business Analyst: DANELLE MASON ([phone])[facility])[address] [place] [address] PCO2 ARTERIAL 31.3 mm Hg Low >35.0-<45.0 [facility] Comment on above: Performed By: #### L AB76 ####It Business Analyst: DANELLE MASON ([phone])[facility])[address] [place] [place] [address] PH ARTERIAL 7.448 Normal 7.350-7.450 [facility] Comment on above: Performed By: #### L AB76 ####It Business Analyst: DANELLE MASON ([phone])[facility])[address] [place] [place] [address] PO2 ARTERIAL 106.6 mm Hg High 80.0-100.0 [facility] Comment on above: Performed By: #### L AB76 ####It Business Analyst: DANELLE MASON ([phone])[facility])[address] [place] [address] SOURCE OF OXYGEN High flow nasal cannula Normal [facility] Comment on above: Result Comment: 8L Performed By: #### L AB76 ####It Business Analyst: DANELLE MASON ([phone])[facility])[address] [place] [place] [address] CBC (HEMOGRAM)on 01-24-2024 Erythrocyte distribution width (RBC) [Ratio] 14.6 % Normal 11.5-15.0 [facility] Comment on above: Performed By: #### L [id number] ####It Business Analyst: DANELLE MASON ([phone])[facility])[address] [place] [address] Hematocrit (Bld) [Volume fraction] 24.8 % Low 35.0-47.0 [facility] Comment on above: Performed By: #### L [id number] ####It Business Analyst: DANELLE MASON ([phone])[facility])[address] [place] [place] [address] Hemoglobin (Bld) [Mass/Vol] 8.4 g/dL Low 11.7-16.0 [facility] Comment on above: Performed By: #### L [id number] ####It Business Analyst: DANELLE MASON ([phone])[facility])[address] [place] [place] [address] MCH (RBC) [Entitic mass] 29.8 pg Normal 26.0-34.0 [facility] Comment on above: Performed By: #### L [id number] ####It Business Analyst: DANELLE MASON ([phone])[facility])[address] [place] [place] [address] MCHC 33.9 % Normal 30.5-36.0 [facility] Comment on above: Performed By: #### L [id number] ####It Business Analyst: DANELLE MASON ([phone])[facility])[address] [place] [place] [address] MCV (RBC) [Entitic vol] 87.9 fL Normal 77.0-99.0 [facility] Comment on above: Performed By: #### L [id number] ####It Business Analyst: DANELLE MASON ([phone])[facility])[address] [place] [place] [address] Platelet mean volume (Bld) [Entitic vol] 9.6 fL Normal 9.0-12.7 [facility] Comment on above: Performed By: #### L [id number] ####It Business Analyst: DANELLE MASON ([phone])[facility])[address] [place] [place] [address] Platelets (Bld) [#/Vol] 101 10*3/uL Low 140-440 [facility] Comment on above: Performed By: #### L [id number] ####It Business Analyst: DANELLE MASON ([phone])[facility])[address] [place] [address] RBC (Bld) [#/Vol] 2.82 10*6/uL Low 3.80-5.20 [facility] Comment on above: Performed By: #### L [id number] ####It Business Analyst: DANELLE MASON ([phone])[facility])[address] [place] [place] [address] WBC (Bld) [#/Vol] 14.0 10*3/uL High 3.6-10.7 [facility] Comment on above: Performed By: #### L [id number] ####It Business Analyst: DANELLE MASON ([phone])[facility])[address] [place] [place] [address] Consulton 01-24-2024 Consult Normal [facility] ECG 12-LEADon 01-24-2024 ECG 12-LEAD IMPRESSION: Sinus rhythm RBBB and LPFB Electronically Signed On 01-24-2024 17:30:02 [facility]-LEAD IMPRESSION: Sinus rhythm Probable inferior infarct, old Nonspecific T abnormalities, lateral leads Electronically Signed On 01-24-2024 17:30:21 EDT [facility] MAGNESIUMon 01-24-2024 Magnesium [Mass/Vol] 2.2 mg/dL Normal 1.6-2.3 [facility] Comment on above: Performed By: #### L [id number], [id number] ####It Business Analyst: DANELLE MASON ([phone])[facility])[address] [place] [place] [address] Nursing Noteon 01-24-2024 Nursing Note Normal [facility] PROTIME AND APTTon aPTT Coag (Bld) [Time] 36.2 s High 20.0-30.5 [facility] Comment on above: Performed By: #### L [id number] ####It Business Analyst: DANELLE MASON ([phone])[facility])[address] [place] [address] INR Coag (PPP) [Relative time] 1.0 {INR} Normal 0.9-1.1 [facility] Comment on above: Result Comment: Blaine mmended Anticoagulant Therapy: SEE BELOW----- INR of 2.0 - 3.0 : - Prophylaxis of Venous Thrombosis (high-risk surgery) - Treatment of Venous Thrombosis - Treatment of Pulmonary Embolism (Includes tissue heart valves, Acute Myocardial Infarction to prevent systemic embolism, Valvular Heart Disease, and Atrial Fibrillation)----- INR of 2.5 - 3.5 : - Mechanical Prosthetic Valves (high risk) - If oral anticoagulant therapy is used to prevent Myocardial Infarction Performed By: #### L [id number] ####It Business Analyst: DANELLE MASON ([phone])[facility])[address] [place] [address] PT Coag (PPP) [Time] 11.1 s Normal 9.0-12.0 [facility] Comment on above: Performed By: #### L [id number] ####It Business Analyst: DANELLE MASON ([phone])[facility])[address] [place] [address] Progress Noteon 01-24-2024 [facility] Progress Note Normal [facility] Progress Note [facility] XR CHEST 1 VIEWon 01-24-2024 XR CHEST 1 VIEW Normal [facility] BASIC METABOLIC PANELon 12-31 Anion gap [Moles/Vol] 10 mmol/L Normal 3-13 [facility] Comment on above: Order Comment: Can d raw with re-check of H&H post transfusion. Performed By: #### L AB15 ####It Business Analyst: DANELLE MASON ([phone])[facility])[address] [place] [place] [address] Calcium [Mass/Vol] 8.1 mg/dL Low 8.4-10.4 [facility] Comment on above: Order Comment: Can d raw with re-check of H&H post transfusion. Performed By: #### L AB15 ####It Business Analyst: DANELLE MASON ([phone])[facility])[address] [place] [address] Chloride [Moles/Vol] 108 mmol/L High 98-107 [facility] Comment on above: Order Comment: Can d raw with re-check of H&H post transfusion. Performed By: #### L AB15 ####It Business Analyst: DANELLE MASON ([phone])[facility])[address] [place] [address] CO2 [Moles/Vol] 16 mmol/L Low 22-30 [facility] Comment on above: Order Comment: Can d raw with re-check of H&H post transfusion. Performed By: #### L AB15 ####It Business Analyst: DANELLE MASON ([phone])[facility])[address] [place] [address] Creatinine [Mass/Vol] 1.06 mg/dL High 0.52-1.04 [facility] Comment on above: Order Comment: Can d raw with re-check of H&H post transfusion. Performed By: #### L AB15 ####It Business Analyst: DANELLE MASON ([phone])[facility])[address] [place] [place] [address] GLOMERULAR FILTRATION RATE ML/MIN/1.73 SQ M.PREDICTED 56.3 mL/min/1.73m*2 Low >60.0 [facility] Comment on above: Order Comment: Can d raw with re-check of H&H post transfusion. Result Comment: Calc ulation based on the Chronic Kidney Disease Epidemiology Collaboration (CKD-EPI) equation refit without adjustment for race Performed By: #### L AB15 ####It Business Analyst: DANELLE MASON ([phone])[facility])[address] [place] [place] [address] Glucose [Mass/Vol] 185 mg/dL High 70-100 [facility] Comment on above: Order Comment: Can d raw with re-check of H&H post transfusion. Performed By: #### L AB15 ####It Business Analyst: DANELLE MASON ([phone])[facility])[address] [place] [address] Potassium [Moles/Vol] 4.7 mmol/L Normal 3.5-5.1 [facility] Comment on above: Order Comment: Can d raw with re-check of H&H post transfusion. Performed By: #### L AB15 ####It Business Analyst: DANELLE MASON ([phone])[facility])[address] [place] [place] [address] Sodium [Moles/Vol] 133 mmol/L Low 135-145 [facility] Comment on above: Order Comment: Can d raw with re-check of H&H post transfusion. Performed By: #### L AB15 ####It Business Analyst: DANELLE MASON ([phone])[facility])[address] [place] [place] [address] Urea nitrogen [Mass/Vol] 24 mg/dL High 7-17 [facility] Comment on above: Order Comment: Can d raw with re-check of H&H post transfusion. Performed By: #### L AB15 ####It Business Analyst: DANELLE MASON ([phone])[facility])[address] [place] [address] Anion gap [Moles/Vol] 9 mmol/L Normal 3-13 [facility] Comment on above: Performed By: #### L AB15, [id number] ####It Business Analyst: DANELLE MASON ([phone])[facility])[address] [place] [place] [address] Calcium [Mass/Vol] 8.9 mg/dL Normal 8.4-10.4 [facility] Comment on above: Performed By: #### L AB15, [id number] ####It Business Analyst: DANELLE MASON ([phone])[facility] [place] [address] [place] Chloride [Moles/Vol] 108 mmol/L High 98-107 [facility] Comment on above: Performed By: #### L AB15, [id number] ####It Business Analyst: DANELLE MASON ([phone])[facility] [place] [address] [place] CO2 [Moles/Vol] 18 mmol/L Low 22-30 [facility] Comment on above: Performed By: #### L AB15, [id number] ####It Business Analyst: DANELLE MASON ([phone])[facility] [place] [address] [place] Creatinine [Mass/Vol] 1.39 mg/dL High 0.52-1.04 [facility] Comment on above: Performed By: #### L AB15, [id number] ####It Business Analyst: DANELLE MASON ([phone])[facility] [place] [address] [place] GLOMERULAR FILTRATION RATE ML/MIN/1.73 SQ M.PREDICTED 40.7 mL/min/1.73m*2 Low >60.0 [facility] Comment on above: Result Comment: Calc ulation based on the Chronic Kidney Disease Epidemiology Collaboration (CKD-EPI) equation refit without adjustment for race Performed By: #### L AB15, [id number] ####It Business Analyst: DANELLE MASON ([phone])[facility] [place] [address] [place] Glucose [Mass/Vol] 121 mg/dL High 70-100 [facility] Comment on above: Performed By: #### L AB15, [id number] ####It Business Analyst: DANELLE MASON ([phone])[facility])[address] [place] [place] [address] Potassium [Moles/Vol] 4.9 mmol/L Normal 3.5-5.1 [facility] Comment on above: Performed By: #### L AB15, [id number] ####It Business Analyst: DANELLE MASON ([phone])[facility])[address] [place] [place] [address] Sodium [Moles/Vol] 136 mmol/L Normal 135-145 [facility] Comment on above: Performed By: #### L AB15, [id number] ####It Business Analyst: DANLELE MASON ([phone])[facility])[address] [place] [place] [address] Urea nitrogen [Mass/Vol] 27 mg/dL High 7-17 [facility] Comment on above: Performed By: #### L AB15, [id number] ####It Business Analyst: DANELLE MASON ([phone])[facility])[address] [place] [address] BLOOD GAS ARTERIALon 024 Base excess Calc (Bld) [Moles/Vol] -2.2000 mmol/L Normal -3.0-3.0 [facility] Comment on above: Performed By: #### L AB76 ####It Business Analyst: DANELLE MASON ([phone])[facility])[address] [place] [address] [place] CO2 [Moles/Vol] 23.4 mmol/L Normal 23.0-27.0 [facility] Comment on above: Performed By: #### L AB76 ####It Business Analyst: DANELLE MASON ([phone])[facility])[address] [place] [place] [address] HCO3 (Bld) [Moles/Vol] 22.3 mmol/L Normal 21.0-25.0 [facility] Comment on above: Performed By: #### L AB76 ####It Business Analyst: DANELLE MASON ([phone])[facility])[address] [place] [place] [address] Hemoglobin (Bld) [Mass/Vol] 8.9 g/dL Normal Screen only [facility] Comment on above: Performed By: #### L AB76 ####It Business Analyst: DANELLE MASON ([phone])[facility])[address] [place] [place] [address] OXYGEN SATURATION (%) IN ARTERIAL BLOOD 94.2 % Low 95.0-100.0 [facility] Comment on above: Performed By: #### L AB76 ####It Business Analyst: DANELLE MASON ([phone])[facility])[address] [place] [address] PCO2 ARTERIAL 36.7 mm Hg Normal >35.0-<45.0 [facility] Comment on above: Performed By: #### L AB76 ####It Business Analyst: DANELLE MASON ([phone])[facility])[address] [place] [address] PH ARTERIAL 7.401 Normal 7.350-7.450 [facility] Comment on above: Performed By: #### L AB76 ####It Business Analyst: DANELLE MASON ([phone])[facility])[address] [place] [address] PO2 ARTERIAL 76.7 mm Hg Low 80.0-100.0 [facility] Comment on above: Performed By: #### L AB76 ####It Business Analyst: DANELLE MASON ([phone])[facility])[address] [place] [address] SOURCE OF OXYGEN Nasal cannula Normal [facility] Comment on above: Result Comment: 6L Performed By: #### L AB76 ####It Business Analyst: DANELLE MASON ([phone])[facility])[address] [place] [address] CBC (HEMOGRAM)on 01-23-2024 Erythrocyte distribution width (RBC) [Ratio] 13.1 % Normal 11.5-15.0 [facility] Comment on above: Performed By: #### L [id number] ####It Business Analyst: DANELLE MASON ([phone])[facility])[address] [place] [place] [address] Hematocrit (Bld) [Volume fraction] 18.3 % Low 35.0-47.0 [facility] Comment on above: Performed By: #### L [id number] ####It Business Analyst: DANELLE MASON ([phone])[facility])[address] [place] [address] Hemoglobin (Bld) [Mass/Vol] 6.1 g/dL Critically low 11.7-16.0 [facility] Comment on above: Performed By: #### L [id number] ####It Business Analyst: DANELLE MASON ([phone])[facility])[address] [place] [address] IPF 2 Normal [facility] Comment on above: Performed By: #### L [id number] ####It Business Analyst: DANELLE MASON ([phone])[address] MCH (RBC) [Entitic mass] 30.8 pg Normal 26.0-34.0 [facility] Comment on above: Performed By: #### L [id number] ####It Business Analyst: DANELLE MASON ([phone])[facility])[address] [place] [address] MCHC 33.3 % Normal 30.5-36.0 [facility] Comment on above: Performed By: #### L [id number] ####It Business Analyst: DANELLE MASON ([phone])[facility])[address] [place] [address] MCV (RBC) [Entitic vol] 92.4 fL Normal 77.0-99.0 [facility] Comment on above: Performed By: #### L [id number] ####It Business Analyst: DANELLE MASON ([phone])[facility])[address] [place] [address] Platelet mean volume (Bld) [Entitic vol] 9.2 fL Normal 9.0-12.7 [facility] Comment on above: Performed By: #### L [id number] ####It Business Analyst: DANELLE MASON ([phone])[facility])[address] [place] [place] [address] Platelets (Bld) [#/Vol] 115 10*3/uL Low 140-440 [facility] Comment on above: Performed By: #### L [id number] ####It Business Analyst: DANELLE MASON ([phone])[facility])[address] [place] [place] [address] RBC (Bld) [#/Vol] 1.98 10*6/uL Low 3.80-5.20 [facility] Comment on above: Performed By: #### L [id number] ####It Business Analyst: DANELLE MASON ([phone])[facility])[address] [place] [place] [address] WBC (Bld) [#/Vol] 9.3 10*3/uL Normal 3.6-10.7 [facility] Comment on above: Performed By: #### L [id number] ####It Business Analyst: DANELLE MASON ([phone])[facility])[address] [place] [place] [address] HEMOGLOBIN AND HEMATOCRIT, B LOODon 01-23-2024 Hematocrit (Bld) [Volume fraction] 23.3 % Low 35.0-47.0 [facility] Comment on above: Order Comment: Recom mend 1 hour post transfusion Performed By: #### L [id number] ####It Business Analyst: DANELLE MASON ([phone])[facility])[address] [place] [address] Hemoglobin (Bld) [Mass/Vol] 7.8 g/dL Low 11.7-16.0 [facility] Comment on above: Order Comment: Recom mend 1 hour post transfusion Performed By: #### L [id number] ####It Business Analyst: DANELLE MASON ([phone])[address] Hematocrit (Bld) [Volume fraction] 21.5 % Low 35.0-47.0 [facility] Comment on above: Order Comment: Recom mend 1 hour post transfusion Performed By: #### L [id number] ####It Business Analyst: DANELLE MASON ([phone])[address] Hemoglobin (Bld) [Mass/Vol] 7.1 g/dL Low 11.7-16.0 [facility] Comment on above: Order Comment: Recom mend 1 hour post transfusion Performed By: #### L [id number] ####It Business Analyst: DANELLE MASON ([phone])[address] IDNon 01-23-2024 IDN Anemia, transfused 1 unit, mild increase in o2 req. Discussed with rn. Evaluated. Cxr mild bibasilar atelectasis / trace edema. - if sao2< 92, ok for hhf/ lasix 20 /nebs/ - aox3 / coarse bronchial breath sounds. Normal [facility] MAGNESIUMon 01-23-2024 Magnesium [Mass/Vol] 2.5 mg/dL High 1.6-2.3 [facility] Comment on above: Performed By: #### L AB15, [id number] ####It Business Analyst: DANELLE MASON ([phone])[address] PROTIME AND APTTon aPTT Coag (Bld) [Time] 29.3 s Normal 20.0-30.5 [facility] Comment on above: Performed By: #### L [id number] ####It Business Analyst: DANELLE MASON ([phone])[address] INR Coag (PPP) [Relative time] 1.0 {INR} Normal 0.9-1.1 [facility] Comment on above: Result Comment: Blaine mmended Anticoagulant Therapy: SEE BELOW----- INR of 2.0 - 3.0 : - Prophylaxis of Venous Thrombosis (high-risk surgery) - Treatment of Venous Thrombosis - Treatment of Pulmonary Embolism (Includes tissue heart valves, Acute Myocardial Infarction to prevent systemic embolism, Valvular Heart Disease, and Atrial Fibrillation)----- INR of 2.5 - 3.5 : - Mechanical Prosthetic Valves (high risk) - If oral anticoagulant therapy is used to prevent Myocardial Infarction Performed By: #### L [id number] ####It Business Analyst: DANELLE MASON ([phone])[address] PT Coag (PPP) [Time] 11.4 s Normal 9.0-12.0 [facility] Comment on above: Performed By: #### L [id number] ####It Business Analyst: DANELLE MASON ([phone])[facility])[address] [place] [address] Progress Noteon 01-23-2024 Progress Note Normal [facility] Progress Note Normal [facility] XR CHEST 1 VIEWon 01-23-2024 XR CHEST 1 VIEW Normal [facility] [id number] 01-22-2024 [id number] Normal [facility] Anesthesia Noteon 01-22-2024 Anesthesia Note Normal [facility] BASIC METABOLIC PANELon 12-31 Anion gap [Moles/Vol] 7 mmol/L Normal 3-13 [facility] Comment on above: Performed By: #### L AB15 ####It Business Analyst: DANELLE MASON ([phone])[address] Calcium [Mass/Vol] 8.7 mg/dL Normal 8.4-10.4 [facility] Comment on above: Performed By: #### L AB15 ####It Business Analyst: DANELLE MASON ([phone])[facility] [place] [place] [address] Chloride [Moles/Vol] 108 mmol/L High 98-107 [facility] Comment on above: Performed By: #### L AB15 ####It Business Analyst: DANELLE MASON ([phone])[facility])[address] [place] [place] [address] CO2 [Moles/Vol] 20 mmol/L Low 22-30 [facility] Comment on above: Performed By: #### L AB15 ####It Business Analyst: DANELLE MASON ([phone])[facility])[address] [place] [place] [address] Creatinine [Mass/Vol] 1.51 mg/dL High 0.52-1.04 [facility] Comment on above: Performed By: #### L AB15 ####It Business Analyst: DANELLE MASON ([phone])[facility] ([facility])[address] [place] [place] [address] GLOMERULAR FILTRATION RATE ML/MIN/1.73 SQ M.PREDICTED 36.8 mL/min/1.73m*2 Low >60.0 [facility] Comment on above: Result Comment: Calc ulation based on the Chronic Kidney Disease Epidemiology Collaboration (CKD-EPI) equation refit without adjustment for race Performed By: #### L AB15 ####It Business Analyst: DANELLE [id number])[facility] ([facility])[address] [place] [place] [address] Glucose [Mass/Vol] 137 mg/dL High 70-100 [facility] Comment on above: Performed By: #### L AB15 ####It Business Analyst: DANELLE MASON ([phone])[facility] ([facility])[address] [place] [place] [address] Potassium [Moles/Vol] 4.3 mmol/L Normal 3.5-5.1 [facility] Comment on above: Performed By: #### L AB15 ####It Business Analyst: DANELLE [id number])[facility] ([facility])[address] [place] [address] [place] Sodium [Moles/Vol] 134 mmol/L Low 135-145 [facility] Comment on above: Performed By: #### L AB15 ####It Business Analyst: DANELLE MASON ([phone])[facility])[address] [place] [address] Urea nitrogen [Mass/Vol] 28 mg/dL High 7-17 [facility] Comment on above: Performed By: #### L AB15 ####It Business Analyst: DANELLE MASON ([phone])[facility] ([facility])[address] [place] [address] Anion gap [Moles/Vol] 8 mmol/L Normal 3-13 [facility] Comment on above: Performed By: #### L AB103, LAB15, [id number] ####It Business Analyst: DANELLE MASON ([phone])[facility] ([facility])[address] [place] [address] Calcium [Mass/Vol] 9.8 mg/dL Normal 8.4-10.4 [facility] Comment on above: Performed By: #### L AB103, LAB15, [id number] ####It Business Analyst: DANELLE MASON ([phone])[facility] ([facility])[address] [place] [address] Chloride [Moles/Vol] 107 mmol/L Normal 98-107 [facility] Comment on above: Performed By: #### L AB103, LAB15, [id number] ####It Business Analyst: DANELLE MASON ([phone])[facility] ([facility])[address] [place] [address] [place] CO2 [Moles/Vol] 20 mmol/L Low 22-30 [facility] Comment on above: Performed By: #### L AB103, LAB15, [id number] ####It Business Analyst: DANELLE MASON ([phone])[facility])[address] [place] [address] Creatinine [Mass/Vol] 1.50 mg/dL High 0.52-1.04 [facility] Comment on above: Performed By: #### L AB103, LAB15, [id number] ####It Business Analyst: DANELLE MASON ([phone])[facility])[address] [place] [address] GLOMERULAR FILTRATION RATE ML/MIN/1.73 SQ M.PREDICTED 37.1 mL/min/1.73m*2 Low >60.0 [facility] Comment on above: Result Comment: Calc ulation based on the Chronic Kidney Disease Epidemiology Collaboration (CKD-EPI) equation refit without adjustment for race Performed By: #### L AB103, LAB15, [id number] ####It Business Analyst: DANELLE MASON ([phone])[facility])[address] [place] [address] Glucose [Mass/Vol] 129 mg/dL High 70-100 [facility] Comment on above: Performed By: #### Soila AB103, LAB15, [id number] ####It Business Analyst: DANELLE MASON ([phone])[facility] ([facility])[address] [place] [address] Potassium [Moles/Vol] 4.2 mmol/L Normal 3.5-5.1 [facility] Comment on above: Performed By: #### Soila ABKeanu, LAB15, [id number] ####It Business Analyst: DANELLE MASON ([phone])[facility])[address] [place] [address] Sodium [Moles/Vol] 135 mmol/L Normal 135-145 [facility] Comment on above: Performed By: #### L AB103, LAB15, [id number] ####It Business Analyst: DANELLE MAOSN ([phone])[facility] ([facility])[address] [place] [address] [place] Urea nitrogen [Mass/Vol] 31 mg/dL High 7-17 [facility] Comment on above: Performed By: #### L AB103, LAB15, [id number] ####It Business Analyst: DANELLE MASON ([phone])[facility])[address] [place] [place] [address] BLOOD GAS ARTERIALon 08-23-2 024 Base excess Calc (Bld) [Moles/Vol] -3.5000 mmol/L Low -3.0-3.0 [facility] Comment on above: Performed By: #### L AB76 ####It Business Analyst: DANELLE MASON ([phone])[facility] ([facility])[address] [place] [address] CO2 [Moles/Vol] 22.5 mmol/L Low 23.0-27.0 [facility] Comment on above: Performed By: #### L AB76 ####It Business Analyst: DANELLE MASON ([phone])[facility])[address] [place] [address] HCO3 (Bld) [Moles/Vol] 21.4 mmol/L Normal 21.0-25.0 [facility] Comment on above: Performed By: #### L AB76 ####It Business Analyst: DANELLE MASON ([phone])[facility])[address] [place] [address] Hemoglobin (Bld) [Mass/Vol] 7.1 g/dL Normal Screen only [facility] Comment on above: Performed By: #### L AB76 ####It Business Analyst: DANELLE MASON ([phone])[facility])[address] [place] [address] OXYGEN SATURATION (%) IN ARTERIAL BLOOD 97.9 % Normal 95.0-100.0 [facility] Comment on above: Performed By: #### L AB76 ####It Business Analyst: DANELLE MASON ([phone])[facility])[address] [place] [place] [address] PCO2 ARTERIAL 37.1 mm Hg Normal >35.0-<45.0 [facility] Comment on above: Performed By: #### L AB76 ####It Business Analyst: DANELLE MASON ([phone])[facility])[address] [place] [address] PH ARTERIAL 7.378 Normal 7.350-7.450 [facility] Comment on above: Performed By: #### L AB76 ####It Business Analyst: DANELLE MASON ([phone])[facility])[address] [place] [address] PO2 ARTERIAL 124.3 mm Hg High 80.0-100.0 [facility] Comment on above: Performed By: #### L AB76 ####It Business Analyst: DANELLE MASNO ([phone])[facility])[address] [place] [address] SOURCE OF OXYGEN Vent Normal [facility] Comment on above: Performed By: #### L AB76 ####It Business Analyst: DANELLE MASON ([phone])[facility])[address] [place] [place] [address] CALCIUM, IONIZEDon CALCIUM IONIZED 5.40 mg/dL High 4.30-5.20 [facility] Comment on above: Performed By: #### L AB54 ####It Business Analyst: DANELLE MASON ([phone])[facility])[address] [place] [place] [address] PH, IONIZED CALCIUM 7.38 Normal 7.31-7.46 [facility] Comment on above: Performed By: #### L AB54 ####It Business Analyst: DANELLE MASON ([phone])[facility])[address] [place] [place] [address] CBC (HEMOGRAM)on 01-22-2024 Erythrocyte distribution width (RBC) [Ratio] 13.0 % Normal 11.5-15.0 [facility] Comment on above: Performed By: #### L [id number] ####It Business Analyst: DANELLE MASON ([phone])[facility])[address] [place] [place] [address] Hematocrit (Bld) [Volume fraction] 25.2 % Low 35.0-47.0 [facility] Comment on above: Performed By: #### L [id number] ####It Business Analyst: DANELLE MASON ([phone])[facility])[address] [place] [place] [address] Hemoglobin (Bld) [Mass/Vol] 8.2 g/dL Low 11.7-16.0 [facility] Comment on above: Performed By: #### L AB294 ####It Business Analyst: DANELLE MASON ([phone])[facility])[address] [place] [address] MCH (RBC) [Entitic mass] 30.0 pg Normal 26.0-34.0 [facility] Comment on above: Performed By: #### L [id number] ####It Business Analyst: DANELLE MASON ([phone])[facility])[address] [place] [place] [address] MCHC 32.5 % Normal 30.5-36.0 [facility] Comment on above: Performed By: #### L AB294 ####It Business Analyst: DANELLE MASON ([phone])[facility] ([facility])[address] [place] [place] [address] MCV (RBC) [Entitic vol] 92.3 fL Normal 77.0-99.0 [facility] Comment on above: Performed By: #### L AB294 ####It Business Analyst: DANELLE MASON ([phone])[facility])[address] [place] [address] Platelet mean volume (Bld) [Entitic vol] 9.0 fL Normal 9.0-12.7 [facility] Comment on above: Performed By: #### L AB294 ####It Business Analyst: DANELLE MASON ([phone])[facility])[address] [place] [address] Platelets (Bld) [#/Vol] 123 10*3/uL Low 140-440 [facility] Comment on above: Performed By: #### L AB294 ####It Business Analyst: DANELLE MASON ([phone])[facility])[address] [place] [place] [address] RBC (Bld) [#/Vol] 2.73 10*6/uL Low 3.80-5.20 [facility] Comment on above: Performed By: #### L AB294 ####It Business Analyst: DANELLE MASON ([phone])[facility])[address] [place] [place] [address] WBC (Bld) [#/Vol] 12.4 10*3/uL High 3.6-10.7 [facility] Comment on above: Performed By: #### L AB294 ####It Business Analyst: DANELLE MASON ([phone])[facility])[address] [place] [place] [address] Erythrocyte distribution width (RBC) [Ratio] 12.9 % Normal 11.5-15.0 [facility] Comment on above: Performed By: #### L AB294 ####It Business Analyst: DANELLE MAOSN ([phone])[address] Hematocrit (Bld) [Volume fraction] 21.1 % Low 35.0-47.0 [facility] Comment on above: Performed By: #### L [id number] ####It Business Analyst: DANELLE MASON ([phone])[address] Hemoglobin (Bld) [Mass/Vol] 7.1 g/dL Low 11.7-16.0 [facility] Comment on above: Performed By: #### L AB294 ####It Business Analyst: DANELLE MASON ([phone])[address] IPF 1 Normal [facility] Comment on above: Performed By: #### L [id number] ####It Business Analyst: DANELLE MASON ([phone])[address] MCH (RBC) [Entitic mass] 31.3 pg Normal 26.0-34.0 [facility] Comment on above: Performed By: #### L AB294 ####It Business Analyst: DANELLE MASON ([phone])[facility])[address] [place] [place] [address] MCHC 33.6 % Normal 30.5-36.0 [facility] Comment on above: Performed By: #### L [id number] ####It Business Analyst: DANELLE MASON ([phone])[facility])[address] [place] [place] [address] MCV (RBC) [Entitic vol] 93.0 fL Normal 77.0-99.0 [facility] Comment on above: Performed By: #### L [id number] ####It Business Analyst: DANELLE MASON ([phone])[facility])[address] [place] [address] Platelet mean volume (Bld) [Entitic vol] 9.5 fL Normal 9.0-12.7 [facility] Comment on above: Performed By: #### L [id number] ####It Business Analyst: DANELLE MASON ([phone])[facility])[address] [place] [address] Platelets (Bld) [#/Vol] 88 10*3/uL Low 140-440 [facility] Comment on above: Performed By: #### L [id number] ####It Business Analyst: DANELLE MASON ([phone])[facility])[address] [place] [address] RBC (Bld) [#/Vol] 2.27 10*6/uL Low 3.80-5.20 [facility] Comment on above: Performed By: #### L [id number] ####It Business Analyst: DANELLE MASON ([phone])[facility])[address] [place] [place] [address] WBC (Bld) [#/Vol] 7.8 10*3/uL Normal 3.6-10.7 [facility] Comment on above: Performed By: #### L [id number] ####It Business Analyst: DANELLE MASON ([phone])[facility])[address] [place] [address] Consulton 01-22-2024 Consult Normal [facility] Consult Normal [facility] FIBRINOGENon 01-22-2024 FIBRINOGEN 191 mg/dL Low 200-400 [facility] Comment on above: Performed By: #### L [id number] ####It Business Analyst: DANELLE MASON ([phone])[facility])[address] [place] [address] FIBRINOGEN 161 mg/dL Low 200-400 [facility] Comment on above: Performed By: #### L [id number], [id number] ####It Business Analyst: DANELLE MASON ([phone])[facility])[address] [place] [address] MAGNESIUMon 01-22-2024 Magnesium [Mass/Vol] 4.2 mg/dL High 1.6-2.3 [facility] Comment on above: Performed By: #### L AB103, LAB15, [id number] ####It Business Analyst: DANELLE MASON ([phone])[facility])[address] [place] [place] [address] Nursing Noteon 01-22-2024 Nursing Note Pt ok for surgery pe r Dr Alford Normal [facility] Nursing Note Patient states she a te one spiced gum drop candy around 0530. Anesthesia paged Normal [facility] Op Noteon 01-22-2024 Op Note Normal [facility] PHOSPHORUSon 01-22-2024 Phosphate [Mass/Vol] 3.8 mg/dL Normal 2.5-4.5 [facility] Comment on above: Performed By: #### L AB103, LAB15, [id number] ####It Business Analyst: DANELLE MASON ([phone])[facility])[address] [place] [address] PROTIME AND APTTon aPTT Coag (Bld) [Time] 30.1 s Normal 20.0-30.5 [facility] Comment on above: Performed By: #### L [id number] ####It Business Analyst: DANELLE MASON ([phone])[facility])[address] [place] [address] INR Coag (PPP) [Relative time] 1.1 {INR} Normal 0.9-1.1 [facility] Comment on above: Result Comment: Blaine mmended Anticoagulant Therapy: SEE BELOW----- INR of 2.0 - 3.0 : - Prophylaxis of Venous Thrombosis (high-risk surgery) - Treatment of Venous Thrombosis - Treatment of Pulmonary Embolism (Includes tissue heart valves, Acute Myocardial Infarction to prevent systemic embolism, Valvular Heart Disease, and Atrial Fibrillation)----- INR of 2.5 - 3.5 : - Mechanical Prosthetic Valves (high risk) - If oral anticoagulant therapy is used to prevent Myocardial Infarction Performed By: #### L [id number] ####It Business Analyst: DANELLE MASON ([phone])[facility])[address] [place] [address] PT Coag (PPP) [Time] 12.0 s Normal 9.0-12.0 [facility] Comment on above: Performed By: #### L [id number] ####It Business Analyst: DANELLE MASON ([phone])[facility])[address] [place] [address] aPTT Coag (Bld) [Time] 32.8 s High 20.0-30.5 [facility] Comment on above: Performed By: #### L [id number], [id number] ####It Business Analyst: DANELLE MASON ([phone])[facility])[address] [place] [address] INR Coag (PPP) [Relative time] 1.5 {INR} High 0.9-1.1 [facility] Comment on above: Result Comment: Blaine mmended Anticoagulant Therapy: SEE BELOW----- INR of 2.0 - 3.0 : - Prophylaxis of Venous Thrombosis (high-risk surgery) - Treatment of Venous Thrombosis - Treatment of Pulmonary Embolism (Includes tissue heart valves, Acute Myocardial Infarction to prevent systemic embolism, Valvular Heart Disease, and Atrial Fibrillation)----- INR of 2.5 - 3.5 : - Mechanical Prosthetic Valves (high risk) - If oral anticoagulant therapy is used to prevent Myocardial Infarction Performed By: #### L [id number], [id number] ####It Business Analyst: DANELLE MASON ([phone])[facility])[address] [place] [address] PT Coag (PPP) [Time] 15.4 s High 9.0-12.0 [facility] Comment on above: Performed By: #### L [id number], [id number] ####It Business Analyst: DANELLE MASON ([phone])[facility])[address] [place] [address] aPTT Coag (Bld) [Time] 31.3 s High 20.0-30.5 [facility] Comment on above: Performed By: #### L [id number] ####It Business Analyst: DANELLE MASON ([phone])[address] INR Coag (PPP) [Relative time] 0.9 {INR} Normal 0.9-1.1 [facility] Comment on above: Result Comment: Blaine mmended Anticoagulant Therapy: SEE BELOW----- INR of 2.0 - 3.0 : - Prophylaxis of Venous Thrombosis (high-risk surgery) - Treatment of Venous Thrombosis - Treatment of Pulmonary Embolism (Includes tissue heart valves, Acute Myocardial Infarction to prevent systemic embolism, Valvular Heart Disease, and Atrial Fibrillation)----- INR of 2.5 - 3.5 : - Mechanical Prosthetic Valves (high risk) - If oral anticoagulant therapy is used to prevent Myocardial Infarction Performed By: #### L [id number] ####It Business Analyst: DANELLE MASON ([phone])[facility])[address] [place] [place] [address] PT Coag (PPP) [Time] 10.3 s Normal 9.0-12.0 [facility] Comment on above: Performed By: #### L [id number] ####It Business Analyst: DANELLE MASON ([phone])[facility])[address] [place] [place] [address] Progress Noteon 01-22-2024 Progress Note Update: Pt s/p CABG x 2, tolerating SBT, extubated, without stridor, without resp distress. Ongoing ICU care. [facility] XR CHEST 1 VIEWon 01-22-2024 XR CHEST 1 VIEW Normal [facility] ECG 12-LEADon 01-16-2024 ECG 12-LEAD IMPRESSION: Sinus bradycardia Electronically Signed On 01-16-2024 08:16:51 EDT by Susana Betancourt [facility] 36on 01-15-2024 36 Bactroban nasal oint ment sent to pharmacy [facility] 36 Patient picked up mouthwash and antibiotic, but not nasal ointment. Can this be resent to patient's pharmacy? Thanks! Normal [facility] Anesthesia Noteon 01-15-2024 Anesthesia Note Normal [facility] BLOOD TYPE AND SCREEN GELon 01-15-2024 ABO GROUPING A Normal [facility] Comment on above: Performed By: #### L [id number] ####It Business Analyst: KELLIE RANDALL ([phone])[facility] ([facility])[address] [place] [address] RH TYPE IN BLOOD Positive Normal [facility] Comment on above: Performed By: #### L [id number] ####It Business Analyst: KELLIEDUDLEY SANCHEZCER ([phone])[facility] ([facility])[address] [place] [address] CBC (HEMOGRAM)on 01-15-2024 Erythrocyte distribution width (RBC) [Ratio] 12.6 % Normal 11.5-15.0 [facility] Comment on above: Performed By: #### L [id number] ####It Business Analyst: KELLIE RANDALL ([phone])[facility] ([facility])[address] [place] [address] Hematocrit (Bld) [Volume fraction] 40.0 % Normal 35.0-47.0 [facility] Comment on above: Performed By: #### L [id number] ####It Business Analyst: KELLIE SANCHEZCER ([phone])[facility] ([facility])[address] Hemoglobin (Bld) [Mass/Vol] 13.2 g/dL Normal 11.7-16.0 [facility] Comment on above: Performed By: #### L [id number] ####It Business Analyst: KELLIE RANDALL ([phone])[facility] ([facility])[address] MCH (RBC) [Entitic mass] 31.0 pg Normal 26.0-34.0 [facility] Comment on above: Performed By: #### L [id number] ####It Business Analyst: KELLIE MCDERMOTTYUNG ([phone])[facility]USFranc[facility] ([facility])[address] MCHC 33.0 % Normal 30.5-36.0 [facility] Comment on above: Performed By: #### L [id number] ####It Business Analyst: KELLIE MCDERMOTTYUNG ([phone])[facility]Franc[facility] ([facility])[address] MCV (RBC) [Entitic vol] 93.9 fL Normal 77.0-99.0 [facility] Comment on above: Performed By: #### L [id number] ####It Business Analyst: KELLIE RANDALL ([phone])[facility]USFranc[facility] ([facility])[address] Platelet mean volume (Bld) [Entitic vol] 8.9 fL Low 9.0-12.7 [facility] Comment on above: Performed By: #### L [id number] ####It Business Analyst: KELLIE RANDALL ([phone])[facility]USFranc[facility] ([facility])[address] Platelets (Bld) [#/Vol] 198 10*3/uL Normal 140-440 [facility] Comment on above: Performed By: #### L [id number] ####It Business Analyst: KELLIE RANDALL ([phone])[facility]AMPUSA [place] ([facility])[address] RBC (Bld) [#/Vol] 4.26 10*6/uL Normal 3.80-5.20 [facility] Comment on above: Performed By: #### L [id number] ####It Business Analyst: KELLIE RANDALL ([phone])[facility]AMPUSA [facility] ([facility])[address] WBC (Bld) [#/Vol] 8.7 10*3/uL Normal 3.6-10.7 [facility] Comment on above: Performed By: #### L [id number] ####It Business Analyst: KELLIE RANDALL ([phone])[facility] ([facility])[address] COMPLETE URINALYSISon 2023 BACTERIA (#/HPF) IN URINE Negative Normal Negative [facility] Comment on above: Performed By: #### L [id number] ####It Business Analyst: KELLIE RANDALL ([phone])[facility] ([facility])[address] [place] [address] BILIRUBIN, TOTAL PRESENCE IN URINE Negative Normal Negative [facility] Comment on above: Performed By: #### L [id number] ####It Business Analyst: KELLIE RANDALL ([phone])[facility]AMPUSA [facility] ([facility])[address] Clarity (U) Clear Normal Clear [facility] Comment on above: Performed By: #### L [id number] ####It Business Analyst: KELLIE RANDALL ([phone])[facility]AMPUSA [facility] ([facility])[address] Color (U) Yellow Normal Lt. Yellow [facility] Comment on above: Performed By: #### L [id number] ####It Business Analyst: KELLIE RANDALL ([phone])[facility]AMPUSA [place] ([facility])[address] GLUCOSE (MG/DL) IN URINE Normal Normal Normal (<70) [facility] Comment on above: Performed By: #### L [id number] ####It Business Analyst: KELLIE RANDALL ([phone])[facility] ([facility])[address] HEMOGLOBIN PRESENCE IN URINE Negative Normal Negative [facility] Comment on above: Performed By: #### L [id number] ####It Business Analyst: KELLIE RANDALL ([phone])[facility] ([facility])[address] HYALINE CASTS (#/LPF) IN URINE SEDIMENT BY MICROSCOPY 6-10 Abnormal Negative [facility] Comment on above: Performed By: #### L [id number] ####It Business Analyst: KELLIE RANDALL ([phone])[facility] ([facility])[address] Ketones Ql (U) Negative Normal Negative [facility] Comment on above: Performed By: #### L [id number] ####It Business Analyst: KELLIE RANDALL ([phone])[facility] ([facility])[address] LEUKOCYTE ESTERASE PRESENCE IN URINE BY TEST STRIP Negative Normal Negative [facility] Comment on above: Performed By: #### L [id number] ####It Business Analyst: KELLIE RANDALL ([phone])[facility] ([facility])[address] [place] [address] [place] MUCUS (#/LPF) IN URINE SEDIMENT Few Normal Negative [facility] Comment on above: Performed By: #### L [id number] ####It Business Analyst: KELLIE RANDALL ([phone])[facility] ([facility])[address] [place] [address] [place] NITRITE PRESENCE IN URINE Negative Normal Negative [facility] Comment on above: Performed By: #### L [id number] ####It Business Analyst: KELLIE RANDALL ([phone])[facility] ([facility])[address] pH (U) 5.0 [pH] Normal 5.0-8.0 [facility] Comment on above: Performed By: #### L [id number] ####It Business Analyst: KELLIE RANDALL ([phone])[facility] ([facility])[address] Protein (U) [Mass/Vol] 30 mg/dL Abnormal Negative [facility] Comment on above: Performed By: #### L [id number] ####It Business Analyst: KELLIE RANDALL ([id number])[facility] [place] ([facility])[address] RBC (#/HPF) IN URINE SEDIMENT 0-2 Normal 0-2 [facility] Comment on above: Performed By: #### L [id number] ####It Business Analyst: KELLIE RANDALL ([phone])[facility] [place] ([facility])[address] Specific gravity (U) [Rel density] 1.016 Normal 1.005-1.030 [facility] Comment on above: Performed By: #### L [id number] ####It Business Analyst: KELLIE RANDALL ([phone])[facility] [facility] [place] ([facility])[address] SQUAMOUS EPITHELIAL CELLS (#/HPF) IN URINE SEDIMENT 0-2 Normal 3-5 [facility] Comment on above: Performed By: #### L [id number] ####It Business Analyst: KELLIE RANDALL ([phone])[facility] [place] [facility] UROBILINOGEN (MG/DL) IN URINE Normal Normal Normal (0-1) [facility] Comment on above: Performed By: #### L [id number] ####It Business Analyst: KELLIE RANDALL ([phone])[facility] [place] ([facility])[address] WBC (LEUKOCYTE) (#/HPF) IN URINE SEDIMENT 0-2 Normal 0-5 [facility] Comment on above: Performed By: #### L [id number] ####It Business Analyst: KELLIE RANDALL ([id number])[facility] [place] (SBHLAB)[address] COMPREHENSIVE METABOLIC PANE Manuel 01-15-2024 Albumin [Mass/Vol] 4.2 g/dL Normal 3.5-5.0 [facility] Comment on above: Performed By: #### L AB17 ####It Business Analyst: KELLIE RANDALL ([phone])[facility] [place] ([facility])[address] ALP [Catalytic activity/Vol] 45 U/L Normal 38-126 [facility] Comment on above: Performed By: #### L AB17 ####It Business Analyst: KELLIE RANDALL ([phone])[facility] [place] ([facility])[address] ALT [Catalytic activity/Vol] 12 U/L Normal 0-34 [facility] Comment on above: Performed By: #### L AB17 ####It Business Analyst: KELLIE RANDALL ([phone])[facility] [place] ([facility])[address] Anion gap [Moles/Vol] 8 mmol/L Normal 3-13 [facility] Comment on above: Performed By: #### L AB17 ####It Business Analyst: KELLIE RANDALL ([id number])[facility] [place] ([facility])155 [place] [address] [place] AST [Catalytic activity/Vol] 22 U/L Normal 15-46 [facility] Comment on above: Performed By: #### L AB17 ####It Business Analyst: KELLIE RANDALL ([phone])[facility] ([facility] Bilirubin [Mass/Vol] 0.7 mg/dL Normal 0.2-1.3 [facility] Comment on above: Performed By: #### L AB17 ####It Business Analyst: KELLIE RANDALL ([phone])[facility] [place] ([facility])[address] Calcium [Mass/Vol] 9.7 mg/dL Normal 8.4-10.4 [facility] Comment on above: Performed By: #### L AB17 ####It Business Analyst: KELLIE RANDALL ([id number])[facility] [place] ([facility])[address] Chloride [Moles/Vol] 108 mmol/L High 98-107 [facility] Comment on above: Performed By: #### L AB17 ####It Business Analyst: KELLIE RANDALL ([phone])[facility] [place] ([facility])[address] CO2 [Moles/Vol] 24 mmol/L Normal 22-30 [facility] Comment on above: Performed By: #### L AB17 ####It Business Analyst: KELLIE RANDALL ([phone])[facility] [place] ([facility])[address] Creatinine [Mass/Vol] 0.93 mg/dL Normal 0.52-1.04 [facility] Comment on above: Performed By: #### L AB17 ####It Business Analyst: KELLIE RANDALL ([phone])[facility] [place] ([facility])[address] GLOMERULAR FILTRATION RATE ML/MIN/1.73 SQ M.PREDICTED 65.8 mL/min/1.73m*2 Normal >60.0 [facility] Comment on above: Result Comment: Calc ulation based on the Chronic Kidney Disease Epidemiology Collaboration (CKD-EPI) equation refit without adjustment for race Performed By: #### L AB17 ####It Business Analyst: KELLIE RANDALL ([phone])[facility] [place] ([facility])[address] [place] [address] [place] Glucose [Mass/Vol] 110 mg/dL High 70-100 [facility] Comment on above: Performed By: #### L AB17 ####It Business Analyst: KELLIE RANDALL ([phone])[facility] [place] (SB[facility])[address] Potassium [Moles/Vol] 5.1 mmol/L Normal 3.5-5.1 [facility] Comment on above: Performed By: #### L AB17 ####It Business Analyst: KELLIE RANDALL ([phone])[facility] ([facility])[address] Protein [Mass/Vol] 7.0 g/dL Normal 6.3-8.2 [facility] Comment on above: Performed By: #### L AB17 ####It Business Analyst: KELLIE RANDALL ([phone])[facility] ([facility])[address] Sodium [Moles/Vol] 140 mmol/L Normal 135-145 [facility] Comment on above: Performed By: #### L AB17 ####It Business Analyst: KELLIE RANDALL ([phone])[facility] Urea nitrogen [Mass/Vol] 19 mg/dL High 7-17 [facility] Comment on above: Performed By: #### L AB17 ####It Business Analyst: KELLIE RANDALL ([phone])[facility] ([facility])[address] [place] [address] [place] HEMOGLOBIN A1Con 01-15-2024 Glucose [Mass/Vol] 169 mg/dL Normal [facility] Comment on above: Performed By: #### L AB90 ####It Business Analyst: KELLIE RANDALL ([phone])[facility] ([facility])[address] HbA1c (Bld) [Mass fraction] 7.5 % High <5.7 [facility] Comment on above: Result Comment: Norm al less than 5.7%Prediabetes 5.7% to 6.4%Diabetes 6.5% or higher--HgbA1C levels may not be accurate in patients who have renal disease, received recent blood transfusions, are anemic, or who have dyshemoglobinemia. Performed By: #### L AB90 ####It Business Analyst: KELLIE RANDALL ([phone])[facility] (SBHLAB)[address] MRSA BY PCRon 01-15-2024 MRSA BY PCR Normal [facility] Comment on above: Performed By: #### L [id number] ####It Business Analyst: DANELLE MASON ([id number])[facility] (SACLAB)[address] [place] [place] [address] Progress Noteon 01-15-[address] [facility] 36on 01-11-2024 36 Sent pre-op meds and completed PAT orders [facility] 36on 01-08-2024 36 [facility] 36on 01-01-2024 36 [facility] Progress Noteon 01-01-2024 Progress Note Pre op teaching done with patient in office. Instructed to hold NSAIDS and Plavix 7 days prior to surgery. Instructed to start Aspirin 81 mg daily 7 days prior to surgery. All other medications per PAT protocol. Pharmacy confirmed. All questions answered. Normal [facility] Progress Note [facility] Orthopedic Visit Reporton Orthopedic Visit Report [facility] [address] [place], [place] [id number] OFFICE VISIT Date of Service: 12/31/23 MR#: [id number] Acct: [id number] Name: ZORAIDA PIRES Rep #: [id number] : 1950 Provider: Dr. Gian landeros MD Age/Sex: 73/F Location: [facility] Status: Signed Intake Vital Signs 12/22/23 08:08 Height 5 ft Weight: 136 lb Intake Visit Reasons: LEFT KNEE Accompanied by: Self Is patient in pain?: Yes Allergies No Known Allergies Allergy (Verified 12/31/23 13:28) Medications ???Medication ???Instructions ???Recorded ???Confirmed ???Type albuterol 90 mcg/actuation aerosol 90 mcg inhalation DAILY 03/14/22 12/31/23 History inhaler blood sugar diagnostic (Truetest 03/14/22 12/31/23 History Test Strips) bupropion HCl 150 mg tablet,12 hr 150 mg PO Q12H 03/14/22 12/31/23 History sustained-release (Wellbutrin SR) clopidogrel 75 mg tablet 75 mg PO DAILY 03/14/22 12/31/23 History gabapentin 800 mg tablet 800 mg PO BID 03/14/22 12/31/23 History hydrocodone 7.5 mg-acetaminophen 1 tab PO Q6H PRN Pain 03/14/22 12/31/23 History 325 mg tablet metoprolol succinate 100 mg 100 mg PO DAILY 03/14/22 12/31/23 History tablet,extended release 24 hr pantoprazole 40 mg tablet,delayed 40 mg PO DAILY 03/14/22 12/31/23 History release polyvinyl alcohol 1.4 % eye drops 1 drp ophthalmic (eye) BID-QID 03/14/22 12/31/23 History rosuvastatin 40 mg tablet 40 mg PO DAILY 03/14/22 12/31/23 History citalopram 40 mg tablet 40 mg PO DAILY 07/25/22 12/31/23 History insulin glargine 100 unit/mL 35 unit subcut QAM 07/25/22 12/31/23 History subcutaneous solution (Lantus U-100 Insulin) nitroglycerin 0.4 mg sublingual 0.4 mg sublingual ONCE #25 tabs 07/28/22 12/31/23 Rx tablet lisinopril 20 mg tablet 20 mg PO DAILY #90 tabs 09/15/22 12/31/23 Rx cilostazol 50 mg tablet See Rx Instructions .Route 12/24/22 12/31/23 Rx .COMPLEX #60 tabs amlodipine 5 mg tablet 5 mg PO DAILY #90 tabs 01/07/23 12/31/23 Rx isosorbide dinitrate 20 mg tablet See Rx Instructions .Route 05/18/23 12/31/23 Rx .COMPLEX #180 TABLETS spironolactone 25 mg tablet 25 mg PO DAILY 07/13/23 12/31/23 History trazodone 50 mg tablet 50 mg PO DAILY 07/13/23 12/31/23 History insulin syringe-needle U-100 0.3 #100 ea 07/15/23 12/31/23 Rx mL 31 gauge x 5/16" (BD Insulin Syringe Ultra-Fine) Fiasp FlexTouch U-100 Insulin 100 18 unit subcut TID #18 mL 10/29/23 12/31/23 Rx unit/mL (3 mL) subcutaneous pen (insulin aspart (niacinamide)) levothyroxine 100 mcg tablet 100 mcg PO .qd 1/2 on Sundays #90 12/01/23 12/31/23 Rx tabs Have you fallen in the past year?: No PFSH Medical History Other bursitis of knee, left knee Tobacco use disorder, continuous Encounter for screening for malignant neoplasm of lung Chronic insomnia Abdominal wall lump DDD (degenerative disc disease) PVD (peripheral vascular disease) Sleep apnea Dyspnea on exertion Mixed hyperlipidemia PAD (peripheral artery disease) History of left heart catheterization (LHC) ( 04/11/15) GERD (gastroesophageal reflux disease) CKD (chronic kidney disease) stage 3, GFR 30-59 ml/min Essential hypertension Presence of stent in coronary artery ( 2004) Atherosclerotic heart disease of [place] coronary artery without angina pectoris Encounter for vitamin deficiency screening Diabetic retinopathy associated with type 1 diabetes mellitus Polyneuropathy due to type 1 diabetes mellitus Appendicitis Proteinuria Lower back pain Heart attack Surgical History History of laparoscopic appendectomy Presence of coronary angioplasty implant and graft H/O angioplasty Hx of tubal ligation Hx of section Family History Other Anxiety Arthritis Breast cancer COPD (chronic obstructive pulmonary disease) CVA (cerebral vascular accident) Cancer Cardiovascular disease Depression Diabetes Hyperlipidemia Hypertension Kidney disease Myocardial infarction Osteoporosis Respiratory disease Thyroid disorder Social History Smoking Status: Current every day smoker tobacco type: cigarettes Tobacco: How many years used: 49 alcohol intake: never substance use type: does not use what type of physical activity do you participate in: none HPI LEFT KNEE Details: This documentation accurately reflects the service provided and the decisions made by me, Dr. Gian Katz MD 12/31/23 1326. Part of today???s visit was documented by [ ], acting as scribe. ZORAIDA PIRES is a 73 year old F here today for left knee pain and swelling. T (more content not included)... Normal [facility] CNOVon 12-14-2023 CN Office Visit (FAMPWS ) -------- ZORAIDA PIRES ([id number]) 1950 F Date Time Provider Department 12/14/23 3:40 PM [facility] During your visit today, we recorded the following information about you: Pulse Blood pressure Weight Height 55/minute 132/52 60.8 kg 1.524 m Sandy Braswell MD 12/14/2023 4:50 PM Signed Patient presents with: Yearly Exam HPI: Patient presents today for office visit for yearly follow up. Has not been seen since 01/20/23. Medication reconciled. Follows with Endocrinology for her sugars. Dr. Palumbo. They are following with her thyroid as well. Has continuous glucose monitor. A1c 10/21/23 8.0 Had wound culture done on 12/09/23 of left knee. Woke up on 12/07/23 with swelling to left knee cap. Noticed her pants were all wet and saw that the abscess had broke open. Currently taking Amoxicillin 875 mg BID. Knee is looking better. Seen at urgent. Was to follow with ortho. Encouraged. Is looking much better. Was red and warm. No fever. One culture is growing a meth resistant staph. Follows with Nephrology. Dr. Hollis. Recently taken off HCTZ and started on spironolactone. HTN: Monitors BP occ. Chest pain after exertion. Cardiology is aware. Has not changed. Shortness of breath with exertion. Follows with Cardiology. Dr. Wood. Having heart cath scheduled 12/22/23. Denies palpitations Denies syncope Denies edema She has been seeing Dr Nielsen. Will be seeing Dr Cuello. Emotionally is doing well. Has had recent labs at [facility]. Needs mammogram order sent to [facility]. Note was copied and pasted, without alteration from: last ov Still seeing Dr. Palumbo. Just saw her on Thursday. Sugars have been relatively. Last a1c was 7.1 Still continue to have back pain. Saw Dr. Nielsen, spine med, who felt there was nothing he could do for her spine. It is inoperable. She has still not gotten into pain management. Reinforced need to do so. She would like to see Dr Winkler. Will repeat controlled substance agreement and do tox screen. She had requested ambien. Again discussed that we should not use it with the hydrocodone. No chest pain No dyspnea. Still seeing cardiology. Bp is stable. Still some stress with her home situation. Had her lung cancer screening. She will verify with her hospital in [facility] when her last colonoscopy. No bowel changes. MEDICATIONS: Current Outpatient Medications Medication Sig amoxicillin-clavulanate potassium (AUGMENTIN) 875-125 mg per tablet Take 1 tablet by mouth every 12 hours. rosuvastatin (CRESTOR) 40 mg tablet Take 1 tablet by mouth once daily. traZODone (DESYREL) 50 mg tablet TAKE 1 TABLET BY MOUTH DAILY AT BEDTIME NEEDED cilostazol (PLETAL) 50 mg tablet 1 tablet 30 minutes before or 2 hours after breakfast and dinner Orally Twice a day for 30 day(s) BD INSULIN SYRINGE ULTRA-FINE 0.3 mL 31 gauge x 5/16" once daily. insulin glargine (LANTUS U-100 INSULIN) 100 unit/mL injection Inject [address] Palumbo FIASP FLEXTOUCH U-100 INSULIN 100 unit/mL (3 mL) pen Inject as directed: small meal 5-6units; medium meal 6-7 units; large meal 8-[address] Palumbo. nitroglycerin sublingual (NITROQUICK) 0.4 mg SL tablet Dissolve 1 tablet under the tongue as needed. DISSOLVE ON TONGUE FOR CHEST PAIN. IF NO PAIN RELIEF, CALL 911 citalopram (CELEXA) 40 mg tablet Take 1 tablet by mouth once daily. gabapentin (NEURONTIN) 800 mg tablet Take 1 tablet by mouth two times a day for 180 days. metoprolol succinate ER (TOPROL XL) 100 mg Take 1 tablet by mouth once daily. buPROPion SR (ZYBAN SR; WELLBUTRIN SR) 150 mg 12 hr tablet Take 1 tablet by mouth every [address] (PROTONIX) 40 mg tablet Take 1 tablet by mouth once daily. amLODIPine (NORVASC) 5 mg tablet Take 1 tablet by mouth every afternoon. HYDROcodone-Acetaminophe n (NORCO) 7.5-325 mg per tablet Take 1 tablet by mouth every 6 hours as needed for pain for up to 30 days. blood sugar diagnostic (BLOOD GLUCOSE TEST) test strip Test blood sugar(s) 3 times daily. Dx: Type 1 DM - Uncontrolled E 10.65 Insulin: Yes isosorbide dinitrate (ISORDIL) 20 mg tablet Take 1 tablet by mouth twice daily. clopidogrel (PLAVIX) 75 mg tablet Take 1 tablet by mouth once daily. albuterol HFA (VENTOLIN HFA) 90 mcg/actuation inhaler Inhale 2 Puffs as instructed every 4 hours as needed for wheezing/shortness of breath. lisinopril (ZESTRIL) 40 mg tablet Take 40 mg by mouth once daily. spironolactone (ALDACTONE) 50 mg tablet Take 50 mg by mouth twice daily. PEG 400-propylene glycol (SYSTANE ULTRA) 0.4-0.3 % ophthalmic solution Use 1 Drop in both eyes every 2 hours while awake. levothyroxine (SYNTHROID) 100 mcg tablet Take 100 mcg by mouth once daily. Insulin Syringe-Needle U-100 (ULTRA FINE INSULIN) 1 mL 30 x 1/2" syrg use 5 times a day as directed. POLYVINYL ALCOHOL (20/20 ARTIFICIAL T (more content not included)... Normal [facility] LIPID PANEL (OUTSIDE)on Cholesterol [Mass/Vol] 142 mg/dL [facility] Cholesterol in HDL [Mass/Vol] 46 mg/dL [facility] Cholesterol in LDL [Mass/Vol] 68 mg/dL [facility] LDL:HDL Ratio [facility] Non-HDL Cholesterol [place] TC:HDL Ratio [facility] Triglyceride [Mass/Vol] 138 mg/dL [facility] VLDL Cholesterol 28 [place] [facility] OCT MACULA CIRRUS OU (BOTH E YES)on 11-19-2023 [facility] Radiology Study observation (narrative) [facility] YAG CAPSULOTOMY OD (RIGHT EY E)on 11-11-2023 [facility] OCT MACULA CIRRUS OU (BOTH E YES)on 11-05-2023 [facility] Radiology Study observation (narrative) [facility] Basophil percentageOrdered B y: Rudy Hollis on 06-23-2023 Basophil percentage 3.8 mg/dL 2.5-4.9 [facility] Chloride [Moles/Vol] 110 mmol/L 98-107 [facility] Glucose [Mass/Vol] 83 mg/dL 74-106 [facility] Potassium [Moles/Vol] 3.6 mmol/L 3.5-5.1 [facility] Sodium [Moles/Vol] 139 mmol/L 136-145 [facility] Laboratory - Chemistry and C hemistry - challengeOrdered By: Rudy Hollis on 06-23-2023 CO2 [Moles/Vol] 24.0 mmol/L 21.0-32.0 [facility] Urea nitrogen/Creatinine [Mass ratio] 20.9 mg/mg 10- [facility] No Panel InformationOrdered By: Rudy Hollis on 06-23-2023 Estimated GFR (MDRD) Amer 60 mL/min >60 [facility] Comment on above: GFR Calc Estimated GFR (MDRD) Non-Af Amer 50 mL/min >60 [facility] Comment on above: Non- GFR Calc Serum or plasma calcium [place] urement (mass/volume)Ordered By: Rudy Hollis on 06-23-2023 Calcium [Mass/Vol] 9.3 mg/dL 8.5-10.1 [facility] Serum or plasma creatinine m easurement (mass/volume)Ordered By: Rudy Hollis on 06-23-2023 Creatinine [Mass/Vol] 1.15 mg/dL 0.55-1.02 [facility] Comment on above: The validity of the calculated GFR & GFRAA in patients over 70 years has not been determined. Clinical correlation is essential. Serum or plasma urea nitroge n measurement (mass/volume)Ordered By: Rudy Hollis on 06-23-2023 Urea nitrogen [Mass/Vol] 24 mg/dL 7-18 [facility] Thin prep Papanicolaou smear with manual screeningOrdered By: Rudy Hollis on 06-23-2023 Protein (U) [Mass/Vol] 55.2 mg/dL 0.0-11.8 [facility] Thin prep Papanicolaou smear with manual screening 3.3 g/dL 3.2-5.0 [facility] Urine creatinine measurement (mass/volume)Ordered By: Rudy Hollis on 06-23-2023 Creatinine (U) [Mass/Vol] 120.00 mg/dL NO RANGE EST. [facility] Urine protein/creatinine mas s ratioOrdered By: Rudy Hollis on 06-23-2023 Protein/Creatinine (U) [Mass ratio] 460 mg/g CRE 0-200 [facility] Laboratory - Drug toxicology Ordered By: Vitaly Villafuerte on 03-02-2023 Amphetamines Ql (U) Negative <1000 ng/mL [facility] Benzodiazepines Ql (U) Negative < 200 ng/mL [facility] Cannabinoids Screen Ql (U) Negative < 50 ng/mL [facility] Cocaine Ql (U) Negative < 300 ng/mL [facility] Opiates Ql (U) Positive < 300 ng/mL [facility] No Panel InformationOrdered By: Vitaly Villafuerte on 03-02-2023 MDMA (Ecstasy) Screen Positive < 500 ng/mL [facility] Miscellaneous Test See comment [facility] Comment on above: [id number] 6+OXYCODONE-B UND (ng/mL) DRUG RESULT SCREEN CUTOFF____ Amphetamines,Urine Negative ng/mL 1000 Amphetamine test includes Amphetamine and Methamphetamine.Barbiturates Negative ng/mL 200Benzodiazepines Negative ng/mL 200Cannabinoid Negative ng/mL 20Cocaine (Metab) Negative ng/mL 300Opiates Positive ng/mL 300 Opiates test includes Codeine, Morphine, Hydromorphone, Hydrocodone. Codeine Negative 300 Morphine Negative 300 Hydromorphone Negative 300 Hydrocodone Positive Hydrocdone Conf,MS,UR 1281 ng/mL 300Oxycodone/Oxymorphone,Urine Negative ng/mL 300 Test includes Oxycodone and Oxymorphone. TESTING PERFORMED AT [facility]. ORIGINAL REPORT ON FILE IN LAB CONTAINS ADDITIONAL TEST SITE INFORMATION. Urine Barbiturates Screen Negative < 200 ng/mL [facility] Urine Drug Screen Comment [facility] Comment on above: CONFIRMATORY TESTING FOR ALL POSITIVE URINE DRUG SCREENRESULTS WILL ONLY BE SENT OUT UPON PHYSICIAN ORDER. VISTA Urine Drug Screen methods provide only preliminaryanalytical test results. A more specific alternate chemicalmethod must be used in order to obtain a confirmedanalytical result. Gas chromatography/mass spectrometery(GC/MS) is the preferred confirmatory method. Clinicalconsideration and professional judgement should be appliedto any drug of abuse test result, particularly whenpreliminary positive results are used. URINE TCA TESTING MUST BE ORDERED SEPARATELY. USE TESTMNEMONIC: [facility] Urine Methadone Screen Negative < 300 ng/mL [facility] Urine phencyclidine (PCP) de tectionOrdered By: Vitaly Villafuerte on 03-02-2023 Phencyclidine Ql (U) Negative < 25 ng/mL [facility] Laboratory - Hematology and Cell countson 02-12-2023 HbA1c (Bld) [Mass fraction] 8.1 % 4.2-6.3 [facility] TOX SCREEN ROUT URon 023 Amphetamines Confirm (U) [Mass/Vol] Negative Negative [facility] Barbiturates Urine Negative Negative [facility] Benzodiazepines Urine Negative Negative [facility] Cannabinoids Screen Ql (U) Negative Negative [facility] Cocaine Ql (U) Negative Negative [facility] Ethanol (U) [Mass/Vol] 11 mg/dL High <11 mg/dL [facility] Opiates Screen Ql (U) Positive Abnormal Negative [facility] oxyCODONE cutoff Screen (U) [Mass/Vol] Negative Negative [facility] Phencyclidine Ql (U) Negative Negative [facility] CBC W Auto Differential pane l (Bld)on 01-20-2023 Basophils (Bld) [#/Vol] 0.08 10*3/uL <0.11 k/uL [facility] Basophils/100 WBC (Bld) 0.7 % [facility] Differential cell count method Nom (Bld) Auto [facility] Eosinophils (Bld) [#/Vol] 0.55 10*3/uL High <0.46 k/uL [facility] Eosinophils/100 WBC (Bld) 4.9 % [facility] Erythrocyte distribution width (RBC) [Ratio] 13.2 % 11.5 - 15.0 % [facility] Hematocrit (Bld) [Volume fraction] 41.6 % 36.0 - 46.0 % [facility] Hemoglobin (Bld) [Mass/Vol] 13.4 g/dL 11.5 - 15.5 g/dL [facility] Immature granulocytes (Bld) [#/Vol] 0.03 10*3/uL <0.10 k/uL [facility] Immature granulocytes/100 WBC (Bld) 0.3 % [facility] Lymphocytes (Bld) [#/Vol] 4.19 10*3/uL High 1.00 - 4.00 k/uL [facility] Lymphocytes/100 WBC (Bld) 37.3 % [facility] MCH (RBC) [Entitic mass] 29.8 pg 26.0 - 34.0 pg [facility] MCHC (RBC) [Mass/Vol] 32.2 g/dL 30.5 - 36.0 g/dL [facility] MCV (RBC) [Entitic vol] 92.7 fL 80.0 - 100.0 fL [facility] Monocytes (Bld) [#/Vol] 1.08 10*3/uL High <0.87 k/uL [facility] Monocytes/100 WBC (Bld) 9.6 % [facility] Neutrophils (Bld) [#/Vol] 5.29 10*3/uL 1.45 - 7.50 k/uL [facility] Neutrophils/100 WBC (Bld) 47.2 % [facility] Nucleated RBC (Bld) [#/Vol] <0.01 k/uL [facility] Nucleated RBC/100 WBC (Bld) [Ratio] 0.0 /100 WBC [facility] Platelet mean volume (Bld) [Entitic vol] 9.2 fL 9.0 - 12.7 fL [facility] Platelets (Bld) [#/Vol] 253 10*3/uL 150 - 400 k/uL [facility] RBC (Bld) [#/Vol] 4.49 10*6/uL 3.90 - 5.2 0 m/uL [facility] WBC (Bld) [#/Vol] 11.22 10*3/uL High 3.70 - 11 .00 k/uL [facility] ABEBE SCREENINGon 11-26-2022 [facility] Absolute lymphocyte countOrd ered By: Henry Walter on 10-21-2022 Lymphocytes Auto (Unsp spec) [#/Vol] 2.72 10*3/uL 0.83-4.51 [facility] Basophil percentageOrdered B y: Henry Walter on 10-21-2022 Basophils/100 WBC (Bld) 0.6 % 0-1 [facility] Chloride [Moles/Vol] 107 mmol/L 98-107 [facility] Eosinophils/100 WBC (Bld) 6.9 % 0-5 [facility] Glucose [Mass/Vol] 244 mg/dL 74-106 [facility] Comment on above: Glucose result great er than or equal to 200 mg/dLsuggests DIABETES MELLITUS per A.D.A. criteria. Neutrophils (Bld) [#/Vol] 4.0 10*3/uL 2.0-7.7 [facility] Neutrophils/100 WBC (Bld) 48.8 % 47-70 [facility] Potassium [Moles/Vol] 3.7 mmol/L 3.5-5.1 [facility] Sodium [Moles/Vol] 138 mmol/L 136-145 [facility] WBC (Bld) [#/Vol] 8.2 10*3/uL 4.4-11.0 [facility] Blood erythrocytes count (nu mber/volume)Ordered By: Henry Walter on 10-21-2022 RBC (Bld) [#/Vol] 4.08 10*6/uL 4.2-5.4 [facility] Blood hemoglobin measurement (mass/volume)Ordered By: Henry Walter on 10-21-2022 Hemoglobin (Bld) [Mass/Vol] 12.2 g/dL 12.0-15.0 [facility] Blood lymphocytes/100 leukoc ytesOrdered By: Henry Walter on 10-21-2022 Lymphocytes/100 WBC (Bld) 33.4 % 19-41 [facility] Blood monocytes/100 leukocyt esOrdered By: Henrygaudencio Walter on 10-21-2022 Monocytes/100 WBC (Bld) 9.9 % 0-10 [facility] Blood platelet mean volumeOr dered By: Henrygaudencio Walter on 10-21-2022 Platelet mean volume (Bld) [Entitic vol] 8.7 fL 6.2-12.0 [facility] Determination of erythrocyte mean corpuscular volume (MCV)Ordered By: Henrygaudencio Walter on 10-21-2022 MCV (RBC) [Entitic vol] 90.2 fL 81-99 [facility] Hematocrit Auto (Bld) [Volum e fraction]Ordered By: Henry Walter on 10-21-2022 Hematocrit (Bld) [Volume fraction] 36.8 % 37-47 [facility] Laboratory - Chemistry and C hemistry - challengeOrdered By: Henry Walter on 10-21-2022 CO2 [Moles/Vol] 26.0 mmol/L 21.0-32.0 [facility] Urea nitrogen/Creatinine [Mass ratio] 13.1 mg/mg 10-20 [facility] Laboratory - Hematology and Cell countsOrdered By: Henry Walter on 10-21-2022 Erythrocyte distribution width (RBC) [Entitic vol] 42.8 fL 35.1-43.9 [facility] Erythrocyte distribution width (RBC) [Ratio] 13.0 % 11.6-14.6 [facility] Immature granulocytes/100 WBC (Bld) 0.400 % 0.0-0.9 [facility] Comment on above: IG% - Immature Granu locytes (promyelocytes, myelocytes and metamyelocytes) > 1% indicates that a LEFT SHIFT is Present. MCH (RBC) [Entitic mass] 29.9 pg 27.0-32.0 [facility] Nucleated RBC/100 WBC (Bld) [Ratio] 0 % 0-5 [facility] [Mass/Vol]Or dered By: Henry Walter on 10-21-2022 MCHC (RBC) [Mass/Vol] 33.2 g/dL 32-36 [facility] No Panel InformationOrdered By: Henry Walter on 10-21-2022 Activated Clotting Time 233 sec 74-137 [facility] Estimated Creatinine Clearance Calc 41.91 ml/min [facility] Estimated GFR (MDRD) Amer 78 mL/min >60 [facility] Comment on above: GFR Calc Estimated GFR (MDRD) Non-Af Amer 65 mL/min >60 [facility] Comment on above: Non- GFR Calc Platelets bldOrdered By: Elsa Walter on 10-21-2022 Platelets (Bld) [#/Vol] 213 10*3/uL 150-450 [facility] Serum or plasma calcium [place] urement (mass/volume)Ordered By: Henry Walter on 10-21-2022 Calcium [Mass/Vol] 8.8 mg/dL 8.5-10.1 [facility] Serum or plasma creatinine m easurement (mass/volume)Ordered By: Henry Walter on 10-21-2022 Creatinine [Mass/Vol] 0.91 mg/dL 0.55-1.02 [facility] Comment on above: The validity of the calculated GFR & GFRAA in patients over 70 years has not been determined. Clinical correlation is essential. Serum or plasma urea nitroge n measurement (mass/volume)Ordered By: Henry Walter on 10-21-2022 Urea nitrogen [Mass/Vol] 12 mg/dL 7-18 [facility] Thin prep Papanicolaou smear with manual screeningOrdered By: Henry Walter on 10-21-2022 Thin prep Papanicolaou smear with manual screening 5 5-15 [facility] Basophil percentageOrdered B y: Itzel Dominguez on 09-30-2022 Bilirubin [Mass/Vol] 0.20 mg/dL 0.20-1.00 [facility] Comment on above: For patients on eltr ombopag therapy, use of Dimension [place] TBIL is not recommended. Chloride [Moles/Vol] 110 mmol/L 98-107 [facility] Glucose [Mass/Vol] 258 mg/dL 74-106 [facility] Comment on above: Glucose result great er than or equal to 200 mg/dLsuggests DIABETES MELLITUS per A.D.A. criteria. Potassium [Moles/Vol] 4.4 mmol/L 3.5-5.1 [facility] Protein [Mass/Vol] 6.4 g/dL 6.4-8.2 [facility] Sodium [Moles/Vol] 137 mmol/L 136-145 [facility] Laboratory - Chemistry and C hemistry - challengeOrdered By: Itzel Dominguez on 09-30-2022 ALP [Catalytic activity/Vol] 72 U/L 45-117 [facility] ALT [Catalytic activity/Vol] 18 U/L 13-56 [facility] CO2 [Moles/Vol] 23.0 mmol/L 21.0-32.0 [facility] Globulin (S) [Mass/Vol] 3.1 g/dL 2.2-4.2 [facility] Urea nitrogen/Creatinine [Mass ratio] 18.9 mg/mg 10-20 [facility] No Panel InformationOrdered By: Itzel Dominguez on 09-30-2022 Estimated GFR (MDRD) Amer 56 mL/min >60 [facility] Comment on above: GFR Calc Estimated GFR (MDRD) Non-Af Amer 46 mL/min >60 [facility] Comment on above: Non- GFR Calc Serum or plasma albumin [place] urement (mass/volume)Ordered By: Itzel Dominguez on 09-30-2022 Albumin [Mass/Vol] 3.3 g/dL 3.2-5.0 [facility] Serum or plasma albumin/glob ulin mass ratioOrdered By: Itzel Dominguez on 09-30-2022 Albumin/Globulin [Mass ratio] 1.1 {ratio} 0.9-2.4 [facility] Serum or plasma calcium [place] urement (mass/volume)Ordered By: Itzel Dominguez on 09-30-2022 Calcium [Mass/Vol] 9.0 mg/dL 8.5-10.1 [facility] Serum or plasma creatinine m easurement (mass/volume)Ordered By: Itzel Dominguez on 09-30-2022 Creatinine [Mass/Vol] 1.22 mg/dL 0.55-1.02 [facility] Comment on above: The validity of the calculated GFR & GFRAA in patients over 70 years has not been determined. Clinical correlation is essential. Serum or plasma urea nitroge n measurement (mass/volume)Ordered By: Itzel Dominguez on 09-30-2022 Urea nitrogen [Mass/Vol] 23 mg/dL 7-18 [facility] Thin prep Papanicolaou smear with manual screeningOrdered By: Itzel Dominguez on 09-30-2022 Thin prep Papanicolaou smear with manual screening 14 U/L 15-37 [facility] Thin prep Papanicolaou smear with manual screening 4 5-[address] [facility] [address] ABD/PEL WO IVCONon 2022 [facility] Laboratory - Hematology and Cell countson 09-15-2022 HbA1c (Bld) [Mass fraction] 7.1 % [facility] Basophil percentageOrdered B y: Itzel Dominguez on 08-14-2022 Bilirubin [Mass/Vol] 0.50 mg/dL 0.20-1.00 [facility] Comment on above: For patients on eltr ombopag therapy, use of [place] TBIL is not recommended. Chloride [Moles/Vol] 109 mmol/L 98-107 [facility] Glucose [Mass/Vol] 314 mg/dL 74-106 [facility] Comment on above: Glucose result great er than or equal to 200 mg/dLsuggests DIABETES MELLITUS per A.D.A. criteria. Potassium [Moles/Vol] 4.1 mmol/L 3.5-5.1 [facility] Protein [Mass/Vol] 6.8 g/dL 6.4-8.2 [facility] Sodium [Moles/Vol] 140 mmol/L 136-145 [facility] Laboratory - Chemistry and C hemistry - challengeOrdered By: Itzel Dominguez on 08-14-2022 ALP [Catalytic activity/Vol] 73 U/L 45-117 [facility] ALT [Catalytic activity/Vol] 18 U/L 13-56 [facility] CO2 [Moles/Vol] 27.0 mmol/L 21.0-32.0 [facility] Globulin (S) [Mass/Vol] 3.3 g/dL 2.2-4.2 [facility] Urea nitrogen/Creatinine [Mass ratio] 21.6 mg/mg 10-20 [facility] No Panel InformationOrdered By: Itzel Dominguez on 08-14-2022 Estimated GFR (MDRD) Amer 73 mL/min >60 [facility] Comment on above: GFR Calc Estimated GFR (MDRD) Non-Af Amer 60 mL/min >60 [facility] Comment on above: Non- GFR Calc Serum or plasma albumin [place] urement (mass/volume)Ordered By: Itzel Dominguez on 08-14-2022 Albumin [Mass/Vol] 3.5 g/dL 3.2-5.0 [facility] Serum or plasma albumin/glob ulin mass ratioOrdered By: Itzel Dominguez on 08-14-2022 Albumin/Globulin [Mass ratio] 1.1 {ratio} 0.9-2.4 [facility] Serum or plasma calcium [place] urement (mass/volume)Ordered By: Itzel Dominguez on 08-14-2022 Calcium [Mass/Vol] 9.4 mg/dL 8.5-10.1 [facility] Serum or plasma creatinine m easurement (mass/volume)Ordered By: Itzel Dominguez on 08-14-2022 Creatinine [Mass/Vol] 0.97 mg/dL 0.55-1.02 [facility] Comment on above: The validity of the calculated GFR & GFRAA in patients over 70 years has not been determined. Clinical correlation is essential. Serum or plasma urea nitroge n measurement (mass/volume)Ordered By: Itzel Dominguez on 08-14-2022 Urea nitrogen [Mass/Vol] 21 mg/dL 7-18 [facility] Thin prep Papanicolaou smear with manual screeningOrdered By: Itzel Dominguez on 08-14-2022 Thin prep Papanicolaou smear with manual screening 15 U/L 15-37 [facility] Thin prep Papanicolaou smear with manual screening 4 5-15 [facility] Basophil percentageOrdered B y: Itzel Dominguez on 06-26-2022 Bilirubin [Mass/Vol] 0.30 mg/dL 0.20-1.00 [facility] Comment on above: For patients on eltr ombopag therapy, use of [place] TBIL is not recommended. Chloride [Moles/Vol] 107 mmol/L 98-107 [facility] Cholesterol [Mass/Vol] 126 mg/dL <200 [facility] Comment on above: <200 mg/dL Desirable 200-240 mg/dL Borderline >240 mg/dL High Risk Glucose [Mass/Vol] 76 mg/dL 74-106 [facility] Potassium [Moles/Vol] 3.2 mmol/L 3.5-5.1 [facility] Protein [Mass/Vol] 6.4 g/dL 6.4-8.2 [facility] Sodium [Moles/Vol] 141 mmol/L 136-145 [facility] Triglyceride [Mass/Vol] 188 mg/dL <199 [facility] Comment on above: The drugs N-Acetylcy steine and Metamizole may falsely depress this assay.Serum Triglycerides Reference Interval Normal <150 mg/dL Borderline high 150 - 199 mg/dL High 200 - 499 mg/dL Very High > or = 500 mg/dL Laboratory - Chemistry and C hemistry - challengeOrdered By: Itzel Dominguez on 06-26-2022 ALP [Catalytic activity/Vol] 76 U/L 45-117 [facility] ALT [Catalytic activity/Vol] 17 U/L 13-56 [facility] CO2 [Moles/Vol] 26.0 mmol/L 21.0-32.0 [facility] Free T4 [Mass/Vol] 1.18 ng/dL 0.76-1.46 [facility] Globulin (S) [Mass/Vol] 3.2 g/dL 2.2-4.2 [facility] Urea nitrogen/Creatinine [Mass ratio] 16.5 mg/mg 10-20 [facility] No Panel InformationOrdered By: Itzel Dominguez on 06-26-2022 Urine Microalbumin/Creatini ne Ratio 131.3 mg/g CRE <30 [facility] Estimated GFR (MDRD) Amer 73 mL/min >60 [facility] Comment on above: GFR Calc Estimated GFR (MDRD) Non-Af Amer 60 mL/min >60 [facility] Comment on above: Non- GFR Calc Thyroid Stimulating Hormone (TSH) 0.44 uIU/mL 0.358-3.74 [facility] Vitamin D 25-Hydroxy 79.4 ng/mL [facility] Comment on above: Vitamin D 25(OH) Sta tus Range Deficiency <20 ng/mL (50nmol/L) Insufficiency 20 - 30 ng/mL (50 - 75 nmol/L) Sufficiency 30 - 100 ng/mL (75 - 250 nmol/L) Toxicity >100 ng/mL (>250 nmol/L) Serum or plasma albumin [place] urement (mass/volume)Ordered By: Itzel Dominguez on 06-26-2022 Albumin [Mass/Vol] 3.2 g/dL 3.2-5.0 [facility] Serum or plasma albumin/glob ulin mass ratioOrdered By: Itzel Dominguez on 06-26-2022 Albumin/Globulin [Mass ratio] 1.0 {ratio} 0.9-2.4 [facility] Serum or plasma calcium [place] urement (mass/volume)Ordered By: Itzel Dominguez on 06-26-2022 Calcium [Mass/Vol] 8.8 mg/dL 8.5-10.1 [facility] Serum or plasma cholesterol in HDL measurement (mass/volume)Ordered By: Itzel Dominguez on 06-26-2022 Cholesterol in HDL [Mass/Vol] 35 mg/dL >40 [facility] Comment on above: The drugs N-Acetylcy steine and Metamizole may falsely depress this assay. Reference Range HDL <40 mg/dL Low HDL Cholesterol HDL >or= 60 mg/dL High HDL Cholesterol Serum or plasma cholesterol in VLDL measurement (mass/volume)Ordered By: Itzel Dominguez on 06-26-2022 Cholesterol in VLDL [Mass/Vol] 38 mg/dL 5-40 [facility] Serum or plasma creatinine m easurement (mass/volume)Ordered By: Itzel Dominguez on 06-26-2022 Creatinine [Mass/Vol] 0.97 mg/dL 0.55-1.02 [facility] Comment on above: The validity of the calculated GFR & GFRAA in patients over 70 years has not been determined. Clinical correlation is essential. Serum or plasma low density lipoprotein (LDL) cholesterol measurement (mass/volume)Ordered By: Itzel Dominguez on 06-26-2022 Cholesterol in LDL [Mass/Vol] 53 mg/dL 0-130 [facility] Serum or plasma urea nitroge n measurement (mass/volume)Ordered By: Itzel Dominguez on 06-26-2022 Urea nitrogen [Mass/Vol] 16 mg/dL 7-18 [facility] Thin prep Papanicolaou smear with manual screeningOrdered By: Itzel Dominguez on 06-26-2022 Thin prep Papanicolaou smear with manual screening 131.0 mg/L NO RANGE EST. [facility] Thin prep Papanicolaou smear with manual screening 11 U/L 15-37 [facility] Thin prep Papanicolaou smear with manual screening 8 5-15 [facility] Urine creatinine measurement (mass/volume)Ordered By: Itzel Dominguez on 06-26-2022 Creatinine (U) [Mass/Vol] 99.80 mg/dL NO RANGE EST. [facility] Laboratory - Hematology and Cell countson 06-16-2022 HbA1c (Bld) [Mass fraction] 7.2 % [facility] No [facility]on [facility] 03-14-2022 HbA1c (Bld) [Mass fraction] 7.3 % 4.2-6.3 [facility] US KIDNEY/BLADDERon 02-01-20 [facility] Urinalysis complete panel (U )on 01-28-2022 Bilirubin Ql (U) Negative Negative [facility] Clarity (Unsp spec) Slightly Cloudy Abnormal Clear [facility] Color (U) Liv Abnormal Yellow [facility] Epithelial cells LM.HPF (Urine sed) [#/Area] Few [facility] Glucose Test strip (U) [Mass/Vol] Negative Negative [facility] Hemoglobin Ql (U) Negative Negative [facility] Hyaline casts (Urine sed) [#/Area] /[LPF] Abnormal 0 /LPF [facility] Ketones Ql (U) Trace Abnormal Negative [facility] Leukocyte esterase Test strip Ql (U) Trace Abnormal Negative [facility] Nitrite Ql (U) Negative Negative [facility] pH (U) 5.0 [pH] 5.0 - 8.0 [facility] Protein (U) [Mass/Vol] 2+ Abnormal Negative [facility] RBC LM.HPF (Urine sed) [#/Area] 3-5 /HPF Abnormal 0-3 /HPF [facility] Specific gravity (U) [Rel density] 1.021 1.005 - 1.030 [facility] Urobilinogen Ql (U) Negative Negative [place] WBC LM.HPF (Urine sed) [#/Area] 6-10 /HPF Abnormal 0-5 /HPF [facility] ALBUMIN/CREAT RATIO RND URon 01-27-2022 Albumin DL <= 20 mg/L (U) [Mass/Vol] 177.8 mg/L [facility] Albumin/Creatinine (U) [Mass ratio] 98 mg/g High <30 mg/g [facility] Creatinine (U) [Mass/Vol] 180.7 mg/dL 20.0 - 300.0 mg/dL [facility] Basic metabolic 2000 panelon 01-27-2022 Anion gap [Moles/Vol] 9 mmol/L 9 - 18 mmol/L [facility] Calcium [Mass/Vol] 9.5 mg/dL 8.5 - 10. 2 mg/dL [facility] Chloride [Moles/Vol] 104 mmol/L 97 - 10 5 mmol/L [facility] CO2 [Moles/Vol] 26 mmol/L 22 - 30 mmol/L [facility] Creatinine [Mass/Vol] 1.03 mg/dL High 0.58 - 0.96 mg/dL [facility] Estimated Glomerular Filtration Rate 59 mL/min/1.73m Low >=60 mL/min/1.73m [facility] Glucose [Mass/Vol] 196 mg/dL High 74 - 99 mg/dL [facility] Potassium [Moles/Vol] 4.2 mmol/L 3.7 - 5.1 mmol/L [facility] Sodium [Moles/Vol] 139 mmol/L 136 - 144 mmol/L [facility] Urea nitrogen [Mass/Vol] 18 mg/dL 7 - 21 mg/dL [facility] XR SHOULDER GENERAL 3V OR MO RE AP/TRUE AP/OTHER RIGHTon 01-27-2022 [facility] XR Shoulder - right 3 Viewso n 01-27-2022 IMPRESSION: Nonspecific soft tissue prominence cephalad to the acromioclavicular joint at the site of palpable abnormality. Mild glenohumeral and moderate acromioclavicular osteoarthritis. 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: SHARONA Transcribe Date/Time: Jan 27 2022 3:31P Dictated by : DINAH MCDERMOTT DO This examination was interpreted and the report reviewed and electronically signed by: DINAH MCDERMOTT DO on Jan 27 2022 3:36PM [facility] DIVISION OF RADIOLOGY * * *Final Report* * * DATE OF EXAM: Jan 27 2022 3:12PM WOX [id number] - XR SHLDR >/=3V AP/CINTHIA AP/OTHR RT / PROCEDURE REASON: multiple diagnoses * * * * Physician Interpretation * * * * EXAMINATION: XR SHLDR >/=3V AP/CINTHIA AP/OTHR RT PATIENT/TECHNOLOGIST PROVIDED HISTORY: has a lump on top of right shoulder marked by arrow for a couple of months, sometimes is painful no inj CLINICAL INFORMATION: 71 years old Female with Chronic right shoulder pain TECHNIQUE: XR SHLDR >/=3V AP/CINTHIA AP/OTHR RT Laterality: RIGHT Number of different views (projections): 3 COMPARISON: None RESULT: Arrow utilized to indicate the patient's reported site of palpable abnormality. Nonspecific soft tissue prominence cephalad to the acromioclavicular joint at the site of palpable abnormality. No fracture. Mild degenerative change glenohumeral joint and moderate degenerative change acromioclavicular joint. Acromiohumeral interval is maintained. Degenerative changes in the visualized cervicothoracic spine. DIVISION OF RADIOLOGY [facility] * * *Final Report* * * DATE OF EXAM: Jan 27 2022 3:12PM WOX [id number] - XR SHLDR >/=3V AP/CINTHIA AP/OTHR RT / PROCEDURE REASON: multiple diagnoses * * * * Physician Interpretation * * * * EXAMINATION: XR SHLDR >/=3V AP/CINTHIA AP/OTHR RT PATIENT/TECHNOLOGIST PROVIDED HISTORY: has a lump on top of right shoulder marked by arrow for a couple of months, sometimes is painful no inj CLINICAL INFORMATION: 71 years old Female with Chronic right shoulder pain TECHNIQUE: XR SHLDR >/=3V AP/CINTHIA AP/OTHR RT Laterality: RIGHT Number of different views (projections): 3 COMPARISON: None RESULT: Arrow utilized to indicate the patient's reported site of palpable abnormality. Nonspecific soft tissue prominence cephalad to the acromioclavicular joint at the site of palpable abnormality. No fracture. Mild degenerative change glenohumeral joint and moderate degenerative change acromioclavicular joint. Acromiohumeral interval is maintained. Degenerative changes in the visualized cervicothoracic spine. IMPRESSION IMPRESSION: Nonspecific soft tissue prominence cephalad to the acromioclavicular joint at the site of palpable abnormality. Mild glenohumeral and moderate acromioclavicular osteoarthritis. 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: SHARONA Transcribe Date/Time: Jan 27 2022 3:31P Dictated by : DINAH MCDERMOTT DO This examination was interpreted and the report reviewed and electronically signed by: DINAH MCDERMOTT DO on Jan 27 2022 3:36PM EST [facility] Radiology Study observation (narrative) [facility] XR Shoulder - right 3 ViewsO rdered By: [facility] Provider on 01-27-2022 [facility] HBA1C (OUTSIDE)on 11-13-2021 HbA1c (Bld) [Mass fraction] 7.7 % [facility] LIPID PANEL (OUTSIDE)on 10-30 Cholesterol [Mass/Vol] 132 mg/dL [facility] Cholesterol in HDL [Mass/Vol] 35 mg/dL [facility] Cholesterol in LDL [Mass/Vol] 57 mg/dL [facility] LDL:HDL Ratio [facility] Non-HDL Cholesterol 97 [place] TC:HDL Ratio [facility] Triglyceride [Mass/Vol] 202 mg/dL [facility] VLDL Cholesterol 40 [facility] MICROALBUMIN/CREATININE UR W RATIO (EXTERNAL)on 11-13-2021 Albumin/Creat Ratio 209.5 [place] Creatinine Urine 124.6 [facility] Microalbumin, Random urine 26.1 [facility] TSH (EXTERNAL)on 11-13-2021 TSH 0.480 IU/ml 0.2 - 5.6 IU/ml [facility] No Panel Information [facility] Vital Signs Date Time Vital Sign Value Performing Clinician Libra huff 12-12-2024 10:33-0400 Body height 152.[address] Sandy Braswell MD Work Phone: [facility] 12-12-2024 10:33-0400 Body mass index (BMI) [Ratio] 25.2 kg/m2 Dr. Sandy Braswell MD Work Phone: [facility] 12-12-2024 10:33-0400 Body weight 58.[address] Sandy Braswell MD Work Phone: [facility] 12-12-2024 10:33-0400 Diastolic blood pressure 59 mm[Hg] Dr. Sandy Braswell MD Work Phone: [facility] 12-12-2024 10:33-0400 Heart rate 56 /min Dr. Sandy Braswell MD Work Phone: [facility] 12-12-2024 10:33-0400 SaO2% (BldA) [Mass fraction] 97 % Dr. Sandy Braswell MD Work Phone: [facility] 12-12-2024 10:33-0400 Systolic blood pressure 101 mm[Hg] Dr. Sandy Braswell MD Work Phone: [facility] 11-08-2024 11:32-0400 Body temperature 97.3 [degF] Rachel Tito SLOT FLOORPERSON.ADVANCED CLINICAL SPECIALIST Work Phone: [facility] 11-08-2024 11:32-0400 Diastolic blood pressure 72 mm[Hg] Rachel Tito SLOT FLOORPERSON.ADVANCED CLINICAL SPECIALIST Work Phone: [facility] 11-08-2024 11:32-0400 Heart rate 64 /min Rachel Tito SLOT FLOORPERSON.ADVANCED CLINICAL SPECIALIST Work Phone: [facility] 11-08-2024 11:32-0400 SaO2% (BldA) [Mass fraction] 98 % Rachel Tito SLOT FLOORPERSON.ADVANCED CLINICAL SPECIALIST Work Phone: [facility] 11-08-2024 11:32-0400 Systolic blood pressure 124 mm[Hg] Rachel Tito SLOT FLOORPERSON.ADVANCED CLINICAL SPECIALIST Work Phone: [facility] 10-25-2024 14:47-0400 Body temperature 96.4 [degF] Dr. Sandy Braswell MD Work Phone: [facility] 10-25-2024 14:47-0400 Diastolic blood pressure 86 mm[Hg] Dr. Sandy Braswell MD Work Phone: [phone] [place] [address] 10-25-2024 14:47-0400 Heart rate 58 /min Dr. Sandy Braswell MD Work Phone: [phone] [place] [address] 10-25-2024 14:47-0400 Respiratory rate 16 /min Dr. Sandy Braswell MD Work Phone: [phone] [place] [address] 10-25-2024 14:47-0400 SaO2% (BldA) [Mass fraction] 100 % Dr. Sandy Braswell MD Work Phone: [phone] [place] [address] 10-25-2024 14:47-0400 Systolic blood pressure 124 mm[Hg] Dr. Sandy Braswell MD Work Phone: [phone] [place] [address] 10-25-2024 14:02-0400 Body height 152.[address] Sandy Braswell MD Work Phone: [phone] [place] [address] 10-25-2024 14:02-0400 Body mass index (BMI) [Ratio] 25.4 kg/m2 Dr. Sandy Braswell MD Work Phone: [phone] [place] [address] 10-25-2024 14:02-0400 Body weight 58.[address] Sandy Braswell MD Work Phone: [phone] [place] [address] 10-19-2024 14:36-0400 Body temperature 98.4 [degF] Dr. Sandy Braswell MD Work Phone: 4(398)408-066958 [place] [address] 10-19-2024 14:36-0400 Body weight 58.[address] Sandy Braswell MD Work Phone: 4(611)711-603458 [place] [address] 10-19-2024 14:36-0400 Diastolic blood pressure 52 mm[Hg] Dr. Sandy Braswell MD Work Phone: 2(787)494-475058 [place] [address] 10-19-2024 14:36-0400 Heart rate 61 /min Dr. Sandy Braswell MD Work Phone: 2(708)469-439658 [place] [address] 10-19-2024 14:36-0400 Respiratory rate 16 /min Dr. Sandy Braswell MD Work Phone: [facility] 10-19-2024 14:36-0400 SaO2% (BldA) [Mass fraction] 98 % Dr. Sandy Braswell MD Work Phone: [facility] 10-19-2024 14:36-0400 Systolic blood pressure 101 mm[Hg] Dr. Sandy Braswell MD Work Phone: [facility] 10-13-2024 09:43-0400 Body height 152.4 cm Pacc 1 Work Phone: [facility] 10-13-2024 09:43-0400 Body mass index (BMI) [Ratio] 25.35 kg/m2 Pacc 1 Work Phone: [facility] 10-13-2024 09:43-0400 Body temperature 97.2 [degF] Pacc 1 Work Phone: [facility] 10-13-2024 09:43-0400 Body weight 58.88 kg Pacc 1 Work Phone: [facility] 10-13-2024 09:43-0400 Diastolic blood pressure 56 mm[Hg] Pacc 1 Work Phone: [facility] 10-13-2024 09:43-0400 Heart rate 71 /min Pacc 1 Work Phone: [facility] 10-13-2024 09:43-0400 Respiratory rate 12 /min Pacc 1 Work Phone: [facility] 10-13-2024 09:43-0400 SaO2% (BldA) [Mass fraction] 97 % Pacc 1 Work Phone: [facility] 10-13-2024 09:43-0400 Systolic blood pressure 126 mm[Hg] Pacc 1 Work Phone: [facility] 09-30-2024 14:21-0400 Body height 177.[address] Sandy Braswell MD Work Phone: [facility] 09-28-2024 15:49-0400 Body mass index (BMI) [Ratio] 25.35 kg/m2 Adriel Solis MD Work Phone: [facility] 09-28-2024 15:49-0400 Body weight 58.88 kg Adriel Solis MD Work Phone: [facility] 09-28-2024 15:49-0400 Diastolic blood pressure 63 mm[Hg] Adriel Solis MD Work Phone: [facility] 09-28-2024 15:49-0400 Heart rate 70 /min Adriel Solis MD Work Phone: [facility] 09-28-2024 15:49-0400 Respiratory rate 14 /min Adriel Solis MD Work Phone: [facility] 09-28-2024 15:49-0400 SaO2% (BldA) [Mass fraction] 97 % Adriel Solis MD Work Phone: [facility] 09-28-2024 15:49-0400 Systolic blood pressure 126 mm[Hg] Adriel Solis MD Work Phone: [facility] 09-22-2024 07:33-0400 Body mass index (BMI) [Ratio] 18.3 kg/m2 Dr. Sandy Braswell MD Work Phone: [facility] 09-22-2024 07:33-0400 Body weight 58.[address] Sandy Braswell MD Work Phone: [facility] 09-22-2024 07:33-0400 Diastolic blood pressure 61 mm[Hg] Dr. Sandy Braswell MD Work Phone: [facility] 09-22-2024 07:33-0400 Heart rate 58 /min Dr. Sandy Braswell MD Work Phone: [facility] 09-22-2024 07:33-0400 Respiratory rate 18 /min Dr. Sandy Braswell MD Work Phone: [facility] 09-22-2024 07:33-0400 SaO2% (BldA) [Mass fraction] 98 % Dr. Sandy Braswell MD Work Phone: [facility] 09-22-2024 07:33-0400 Systolic blood pressure 100 mm[Hg] Dr. Sandy Braswell MD Work Phone: [facility] 09-19-2024 13:37-0400 Diastolic blood pressure 54 mm[Hg] Flaca Haagen [employer] FLOORPERSON.ADVANCED CLINICAL SPECIALIST Work Phone: 5(813)979-512683 [place] [address] 09-19-2024 13:37-0400 Heart rate 60 /min Flaca Haagen [employer] FLOORPERSON.ADVANCED CLINICAL SPECIALIST Work Phone: 0(092)663-334983 [place] [address] 09-19-2024 13:37-0400 Respiratory rate 16 /min Flaca Haagen SL[employer] FLOORPERSON.ADVANCED CLINICAL SPECIALIST Work Phone: 9(819)951-110483 [place] [address] 09-19-2024 13:37-0400 SaO2% (BldA) [Mass fraction] 96 % Flaca Haagen SL[employer] FLOORPERSON.ADVANCED CLINICAL SPECIALIST Work Phone: 4(494)866-898183 [place] [address] 09-19-2024 13:37-0400 Systolic blood pressure 116 mm[Hg] Flaca Haagen SL[employer] FLOORPERSON.ADVANCED CLINICAL SPECIALIST Work Phone: 4(027)584-742683 [place] [address] 09-13-2024 12:25-0400 Body mass index (BMI) [Ratio] 18.3 kg/m2 Dr. Sandy Braswell MD Work Phone: 3(210)450-363732 [place] [address] 09-13-2024 12:25-0400 Body temperature 97.6 [degF] Dr. Sandy Braswell MD Work Phone: 0(072)961-619432 [place] [address] 09-13-2024 12:25-0400 Body weight 58.[address] Sandy Braswell MD Work Phone: 9(255)764-943658 [place] [address] 09-13-2024 12:25-0400 Diastolic blood pressure 66 mm[Hg] Dr. Sandy Braswell MD Work Phone: 6(540)979-370932 [place] [address] 09-13-2024 12:25-0400 Heart rate 60 /min Dr. Sandy Braswell MD Work Phone: 4(272)774-570558 [place] [address] 09-13-2024 12:25-0400 Respiratory rate 16 /min Dr. Sandy Braswell MD Work Phone: 4(861)590-565932 [place] [address] 09-13-2024 12:25-0400 SaO2% (BldA) [Mass fraction] 100 % Dr. Sandy Braswell MD Work Phone: 8(133)105-779732 [place] [address] 09-13-2024 12:25-0400 Systolic blood pressure 130 mm[Hg] Dr. Sandy Braswell MD Work Phone: 1(242)131-865758 [place] [address] 09-12-2024 10:45-0400 Diastolic blood pressure 57 mm[Hg] Dr. Sandy Braswell MD Work Phone: 2(600)518-709458 [place] [address] 09-12-2024 10:45-0400 Heart rate 61 /min Dr. Sandy Braswell MD Work Phone: 9(037)923-984358 [place] [address] 09-12-2024 10:45-0400 SaO2% (BldA) [Mass fraction] 96 % Dr. Sandy Braswell MD Work Phone: 5(522)172-468032 [place] [address] 09-12-2024 10:45-0400 Systolic blood pressure 108 mm[Hg] Dr. Sandy Braswell MD Work Phone: 1(210)410-944358 [place] [address] 09-12-2024 10:37-0400 Body mass index (BMI) [Ratio] 26.8 kg/m2 Dr. Sandy Braswell MD Work Phone: 5(501)025-841232 [place] [address] 09-12-2024 10:37-0400 Body weight 58.[address] Sandy Braswell MD Work Phone: 1(165)388-582332 [place] [address] 08-17-2024 13:27-0400 Body mass index (BMI) [Ratio] 25 kg/m2 Adriel Solis MD Work Phone: 3(579)907-265683 [place] [address] 08-17-2024 13:27-0400 Body weight 58.06 kg Adriel Solis MD Work Phone: [facility] 08-17-2024 13:27-0400 Diastolic blood pressure 66 mm[Hg] Adriel Solis MD Work Phone: [facility] 08-17-2024 13:27-0400 Heart rate 70 /min Adriel Solis MD Work Phone: [facility] 08-17-2024 13:27-0400 SaO2% (BldA) [Mass fraction] 99 % Adriel Solis MD Work Phone: [facility] 08-17-2024 13:27-0400 Systolic blood pressure 135 mm[Hg] Adriel Solis MD Work Phone: [facility] 08-03-2024 15:11-0500 Body height 152.4 cm Sandy Braswell MD Work Phone: [facility] 08-03-2024 15:11-0500 Body mass index (BMI) [Ratio] 25 kg/m2 Sandy Braswell MD Work Phone: [facility] 08-03-2024 15:11-0500 Body weight 58.06 kg Sandy Braswell MD Work Phone: [facility] 08-03-2024 15:11-0500 Diastolic blood pressure 50 mm[Hg] Sandy Braswell MD Work Phone: [facility] 08-03-2024 15:11-0500 Heart rate 65 /min Sandy Braswell MD Work Phone: [facility] 08-03-2024 15:11-0500 SaO2% (BldA) [Mass fraction] 97 % Sandy Braswell MD Work Phone: [facility] 08-03-2024 15:11-0500 Systolic blood pressure 104 mm[Hg] Sandy Braswell MD Work Phone: [facility] 06-13-2024 11:31-0500 Body height 147.[address] Sandy Braswell MD Work Phone: [facility] 06-13-2024 11:31-0500 Body mass index (BMI) [Ratio] 26 kg/m2 Dr. Sandy Braswell MD Work Phone: [facility] 06-13-2024 11:31-0500 Body weight 56.[address] Sandy Braswell MD Work Phone: [facility] 06-13-2024 11:31-0500 Diastolic blood pressure 67 mm[Hg] Dr. Sandy Braswell MD Work Phone: [facility] 06-13-2024 11:31-0500 Heart rate 64 /min Dr. Sandy Braswell MD Work Phone: [facility] 06-13-2024 11:31-0500 SaO2% (BldA) [Mass fraction] 95 % Dr. Sandy Braswell MD Work Phone: [facility] 06-13-2024 11:31-0500 Systolic blood pressure 110 mm[Hg] Dr. Sandy Braswell MD Work Phone: [facility] 12-14-2023 15:24-0400 Body height 152.4 cm Sandy Braswell MD Work Phone: [facility] 12-14-2023 15:24-0400 Body mass index (BMI) [Ratio] 26.17 kg/m2 Sandy Braswell MD Work Phone: [facility] 12-14-2023 15:24-0400 Body weight 60.78 kg Sandy Braswell MD Work Phone: [facility] 12-14-2023 15:24-0400 Diastolic blood pressure 52 mm[Hg] Sandy Braswell MD Work Phone: [facility] 12-14-2023 15:24-0400 Heart rate 55 /min Sandy Braswell MD Work Phone: [facility] 12-14-2023 15:24-0400 SaO2% (BldA) [Mass fraction] 97 % Sandy Braswell MD Work Phone: [facility] 12-14-2023 15:24-0400 Systolic blood pressure 132 mm[Hg] Sandy Braswell MD Work Phone: [facility] 04-08-2023 11:12-0500 Body height 152.[address] Sandy Braswell Work Phone: [facility] 04-08-2023 11:12-0500 Body mass index (BMI) [Ratio] 27.3 kg/m2 Dr. Sandy Braswell Work Phone: 8(951)711-189232 [place] [address] 04-08-2023 11:12-0500 Body temperature 97.8 [degF] Dr. Sandy Braswell Work Phone: 5(801)422-237458 [place] [address] 04-08-2023 11:12-0500 Body weight 63.[address] Sandy Braswell Work Phone: 9(038)814-450658 [place] [address] 04-08-2023 11:12-0500 Diastolic blood pressure 60 mm[Hg] Dr. Sandy Braswell Work Phone: 4(869)895-406458 [place] [address] 04-08-2023 11:12-0500 Heart rate 66 /min Dr. Sandy Braswell Work Phone: 9(045)598-845458 [place] [address] 04-08-2023 11:12-0500 Respiratory rate 16 /min Dr. Sandy Braswell Work Phone: 5(273)161-644858 [place] [address] 04-08-2023 11:12-0500 SaO2% (BldA) [Mass fraction] 97 % Dr. Sandy Braswell Work Phone: 3(061)994-868958 [place] [address] 04-08-2023 11:12-0500 Systolic blood pressure 110 mm[Hg] Dr. Sandy Braswell Work Phone: 5(316)605-093958 [place] [address] 02-12-2023 10:43-0400 Body height 152.[address] Sandy Braswell Work Phone: 3(872)470-364058 [place] [address] 02-12-2023 10:43-0400 Body mass index (BMI) [Ratio] 26.7 kg/m2 Dr. Sandy Braswell Work Phone: 6(098)361-161758 [place] [address] 02-12-2023 10:43-0400 Body temperature 98 [degF] Dr. Sandy Braswell Work Phone: 0(942)568-637258 [place] [address] 02-12-2023 10:43-0400 Body weight 62.[address] Sandy Braswell Work Phone: 9(645)933-160858 [place] [address] 02-12-2023 10:43-0400 Diastolic blood pressure 68 mm[Hg] Dr. Sandy Braswell Work Phone: 5(978)085-013958 [place] [address] 02-12-2023 10:43-0400 Heart rate 70 /min Dr. Sandy Braswell Work Phone: [facility] 02-12-2023 10:43-0400 Respiratory rate 16 /min Dr. Sandy Braswell Work Phone: [facility] 02-12-2023 10:43-0400 SaO2% (BldA) [Mass fraction] 97 % Dr. Sandy Braswell Work Phone: [facility] 02-12-2023 10:43-0400 Systolic blood pressure 124 mm[Hg] Dr. Sandy Braswell Work Phone: [facility] 01-20-2023 15:38-0400 Body weight 61.24 kg Sandy Braswell MD Work Phone: [facility] 01-20-2023 15:38-0400 Diastolic blood pressure 60 mm[Hg] Sandy Braswell MD Work Phone: [facility] 01-20-2023 15:38-0400 Heart rate 61 /min Sandy Braswell MD Work Phone: [facility] 01-20-2023 15:38-0400 Respiratory rate 16 /min Sandy Braswell MD Work Phone: [facility] 01-20-2023 15:38-0400 SaO2% (BldA) [Mass fraction] 97 % Sandy Braswell MD Work Phone: [facility] 01-20-2023 15:38-0400 Systolic blood pressure 110 mm[Hg] Sandy Braswell MD Work Phone: [facility] 01-07-2023 10:46-0400 Body height 152.[address] Sandy Braswell Work Phone: [facility] 01-07-2023 10:46-0400 Body mass index (BMI) [Ratio] 26.7 kg/m2 Dr. Sandy Braswell Work Phone: [facility] 01-07-2023 10:46-0400 Body weight 62.[address] Sandy Braswell Work Phone: [facility] 01-07-2023 10:46-0400 Diastolic blood pressure 80 mm[Hg] Dr. Sandy Braswell Work Phone: 5(172)929-780158 [place] [address] 01-07-2023 10:46-0400 Heart rate 54 /min Dr. Sandy Braswell Work Phone: 5(359)567-122358 [place] [address] 01-07-2023 10:46-0400 Respiratory rate 16 /min Dr. Sandy Braswell Work Phone: 7(792)762-293058 [place] [address] 01-07-2023 10:46-0400 Systolic blood pressure 137 mm[Hg] Dr. Sandy Braswell Work Phone: 9(889)842-504958 [place] [address] 01-06-2023 12:15-0400 Body mass index (BMI) [Ratio] 26.8 kg/m2 Dr. Sandy Braswell Work Phone: 6(057)541-902958 [place] [address] 01-06-2023 12:15-0400 Body temperature 98 [degF] Dr. Sandy Braswell Work Phone: 8(810)765-676958 [place] [address] 01-06-2023 12:15-0400 Body weight 62.[address] Sandy Braswell Work Phone: 8(212)951-602258 [place] [address] 01-06-2023 12:15-0400 Diastolic blood pressure 75 mm[Hg] Dr. Sandy Braswell Work Phone: 6(921)287-945658 [place] [address] 01-06-2023 12:15-0400 Heart rate 60 /min Dr. Sandy Braswell Work Phone: 8(865)317-707358 [place] [address] 01-06-2023 12:15-0400 Respiratory rate 16 /min Dr. Sandy Braswell Work Phone: 1(620)090-889358 [place] [address] 01-06-2023 12:15-0400 SaO2% (BldA) [Mass fraction] 98 % Dr. Sandy Braswell Work Phone: 5(493)785-120258 [place] [address] 01-06-2023 12:15-0400 Systolic blood pressure 173 mm[Hg] Dr. Sandy Braswell Work Phone: 1(521)962-008458 [place] [address] 12-04-2022 14:30-0400 Body temperature 98.2 [degF] Dr. Sandy Braswell Work Phone: 2(185)339-819058 [place] [address] 12-04-2022 14:30-0400 Diastolic blood pressure 65 mm[Hg] Dr. Sandy Braswell Work Phone: 7(908)921-502358 [place] [address] 12-04-2022 14:30-0400 Heart rate 73 /min Dr. Sandy Braswell Work Phone: 9(131)864-029058 [place] [address] 12-04-2022 14:30-0400 Respiratory rate 18 /min Dr. Sandy Braswell Work Phone: 3(865)109-264758 [place] [address] 12-04-2022 14:30-0400 SaO2% (BldA) [Mass fraction] 99 % Dr. Sandy Braswell Work Phone: 9(584)220-626158 [place] [address] 12-04-2022 14:30-0400 Systolic blood pressure 142 mm[Hg] Dr. Sandy Braswell Work Phone: 7(106)530-938558 [place] [address] 10-21-2022 08:09-0400 Body height 152.[address] Sandy Braswell Work Phone: 8(871)137-132558 [place] [address] 10-21-2022 08:09-0400 Body weight 60.[address] Sandy Braswell Work Phone: 0(494)480-114758 [place] [address] 10-20-2022 09:04-0400 Body mass index (BMI) [Ratio] 26.2 kg/m2 Dr. Sandy Braswell Work Phone: 8(918)769-576358 [place] [address] 10-07-2022 15:01-0400 Body weight 60.[address] Sandy Braswell Work Phone: 4(489)933-655658 [place] [address] 10-07-2022 15:01-0400 Diastolic blood pressure 53 mm[Hg] Dr. Sandy Braswell Work Phone: 4(785)008-677058 [place] [address] 10-07-2022 15:01-0400 Heart rate 62 /min Dr. Sandy Braswell Work Phone: 7(584)199-494258 [place] [address] 10-07-2022 15:01-0400 Respiratory rate 18 /min Dr. Sandy Braswell Work Phone: 1(397)655-331858 [place] [address] 10-07-2022 15:01-0400 SaO2% (BldA) [Mass fraction] 99 % Dr. Sandy Braswell Work Phone: [facility] 10-07-2022 15:01-0400 Systolic blood pressure 99 mm[Hg] Dr. Sandy Braswell Work Phone: [facility] 09-19-2022 15:53-0400 Body weight 59.88 kg Sandy Braswell MD Work Phone: [facility] 09-19-2022 15:53-0400 Diastolic blood pressure 58 mm[Hg] Sandy Braswell MD Work Phone: [facility] 09-19-2022 15:53-0400 Heart rate 59 /min Sandy Braswell MD Work Phone: [facility] 09-19-2022 15:53-0400 SaO2% (BldA) [Mass fraction] 96 % Sandy Braswell MD Work Phone: [facility] 09-19-2022 15:53-0400 Systolic blood pressure 122 mm[Hg] Sandy Braswell MD Work Phone: [facility] 09-15-2022 10:59-0400 Body height 152.[address] Sandy Braswell Work Phone: [facility] 09-15-2022 10:59-0400 Body mass index (BMI) [Ratio] 26 kg/m2 Dr. Sandy Braswell Work Phone: [facility] 09-15-2022 10:59-0400 Body temperature 98 [degF] Dr. Sandy Braswell Work Phone: [facility] 09-15-2022 10:59-0400 Body weight 60.[address] Sandy Braswell Work Phone: [facility] 09-15-2022 10:59-0400 Diastolic blood pressure 79 mm[Hg] Dr. Sandy Braswell Work Phone: [facility] 09-15-2022 10:59-0400 Heart rate 58 /min Dr. Sandy Braswell Work Phone: [facility] 09-15-2022 10:59-0400 Respiratory rate 18 /min Dr. Sandy Braswell Work Phone: [facility] 09-15-2022 10:59-0400 SaO2% (BldA) [Mass fraction] 97 % Dr. Sandy Braswell Work Phone: [facility] 09-15-2022 10:59-0400 Systolic blood pressure 128 mm[Hg] Dr. Sandy Braswell Work Phone: [facility] 09-12-2022 09:49-0400 Body mass index (BMI) [Ratio] 25.7 kg/m2 Dr. Sandy Braswell Work Phone: [facility] 09-12-2022 09:49-0400 Body weight 59.[address] Sandy Braswell Work Phone: [facility] 09-02-2022 14:16-0400 Body height 152.4 cm Adriel Solis MD Work Phone: [facility] 09-02-2022 14:16-0400 Body temperature 98.6 [degF] Adriel Solis MD Work Phone: [facility] 09-02-2022 14:16-0400 Body weight 61.69 kg Adriel Solis MD Work Phone: [facility] 09-02-2022 14:16-0400 Diastolic blood pressure 58 mm[Hg] Adriel Solis MD Work Phone: [facility] 09-02-2022 14:16-0400 Heart rate 70 /min Adriel Solis MD Work Phone: [facility] 09-02-2022 14:16-0400 SaO2% (BldA) [Mass fraction] 98 % Adriel Solis MD Work Phone: [facility] 09-02-2022 14:16-0400 Systolic blood pressure 128 mm[Hg] Adriel Solis MD Work Phone: [facility] 08-14-2022 15:46-0400 Body weight 59.[address] Sandy Braswell Work Phone: 2(938)802-217658 [place] [address] 08-14-2022 15:46-0400 Diastolic blood pressure 71 mm[Hg] Dr. Sandy Braswell Work Phone: 5(015)192-795358 [place] [address] 08-14-2022 15:46-0400 Heart rate 56 /min Dr. Sandy Braswell Work Phone: 6(800)714-907158 [place] [address] 08-14-2022 15:46-0400 Respiratory rate 16 /min Dr. Sandy Braswell Work Phone: 4(719)451-401358 [place] [address] 08-14-2022 15:46-0400 SaO2% (BldA) [Mass fraction] 98 % Dr. Sandy Braswell Work Phone: 5(405)965-373958 [place] [address] 08-14-2022 15:46-0400 Systolic blood pressure 138 mm[Hg] Dr. Sandy Braswell Work Phone: 5(397)719-185858 [place] [address] 07-28-2022 09:25-0500 Body height 152.[address] Sandy Braswell Work Phone: 9(511)708-940558 [place] [address] 07-28-2022 09:23-0500 Body mass index (BMI) [Ratio] 25.7 kg/m2 Dr. Sandy Braswell Work Phone: 0(767)991-791758 [place] [address] 07-28-2022 09:23-0500 Body weight 59.[address] Sandy Braswell Work Phone: 4(213)775-471458 [place] [address] 07-28-2022 09:23-0500 Diastolic blood pressure 7 mm[Hg] Dr. Sandy Braswell Work Phone: 9(570)887-009658 [place] [address] 07-28-2022 09:23-0500 Heart rate 58 /min Dr. Sandy Braswell Work Phone: 9(826)675-880658 [place] [address] 07-28-2022 09:23-0500 Respiratory rate 18 /min Dr. Sandy Braswell Work Phone: 1(360)724-719658 [place] [address] 07-28-2022 09:23-0500 SaO2% (BldA) [Mass fraction] 96 % Dr. Sandy Braswell Work Phone: 2(193)726-443158 [place] [address] 07-28-2022 09:23-0500 Systolic blood pressure 133 mm[Hg] Dr. Sandy Braswell Work Phone: [facility] 06-16-2022 10:42-0500 Body height 152.[address] Gian Jones Work Phone: [facility] 06-16-2022 10:42-0500 Body mass index (BMI) [Ratio] 26.2 kg/m2 Dr. Gian Jones Work Phone: [facility] 06-16-2022 10:42-0500 Body temperature 96.5 [degF] Dr. Gian Jones Work Phone: [facility] 06-16-2022 10:42-0500 Body weight 60.[address] Gian Jones Work Phone: [facility] 06-16-2022 10:42-0500 Diastolic blood pressure 65 mm[Hg] Dr. Gian Jones Work Phone: [facility] 06-16-2022 10:42-0500 Heart rate 55 /min Dr. Gian Jones Work Phone: [facility] 06-16-2022 10:42-0500 Respiratory rate 18 /min Dr. Gian Jones Work Phone: [facility] 06-16-2022 10:42-0500 SaO2% (BldA) [Mass fraction] 96 % Dr. Gian Jones Work Phone: [facility] 06-16-2022 10:42-0500 Systolic blood pressure 135 mm[Hg] Dr. Gian Jones Work Phone: [facility] 04-29-2022 09:30-0500 Body height 152.4 cm Evelin Bright DO Work Phone: [facility] 04-29-2022 09:30-0500 Body weight 61.69 kg Evelin Bright DO Work Phone: [facility] 04-29-2022 09:30-0500 Diastolic blood pressure 81 mm[Hg] Evelin Bright DO Work Phone: [facility] 04-29-2022 09:30-0500 Heart rate 67 /min Evelin Bright DO Work Phone: [facility] 04-29-2022 09:30-0500 SaO2% (BldA) [Mass fraction] 97 % Evelin Bright DO Work Phone: [facility] 04-29-2022 09:30-0500 Systolic blood pressure 153 mm[Hg] Evelin Bright DO Work Phone: [facility] 03-14-2022 13:32-0400 Body mass index (BMI) [Ratio] 26.9 kg/m2 Dr. Gian Jones Work Phone: [facility] 03-14-2022 13:32-0400 Body temperature 97.8 [degF] Dr. Gian Jones Work Phone: [facility] 03-14-2022 13:32-0400 Body weight 62.[address] Gian Jones Work Phone: [facility] 03-14-2022 13:32-0400 Diastolic blood pressure 63 mm[Hg] Dr. Gian Jones Work Phone: [facility] 03-14-2022 13:32-0400 Heart rate 62 /min Dr. Gian Jones Work Phone: [facility] 03-14-2022 13:32-0400 Respiratory rate 18 /min Dr. Gian Jones Work Phone: [facility] 03-14-2022 13:32-0400 SaO2% (BldA) [Mass fraction] 95 % Dr. Gian Jones Work Phone: [facility] 03-14-2022 13:32-0400 Systolic blood pressure 117 mm[Hg] Dr. Gian Jones Work Phone: [facility] 03-07-2022 11:24-0400 Body height 152.4 cm Sandy [place] MD Work Phone: [facility] 03-07-2022 11:24-0400 Body weight 61.33 kg Sandy Braswell MD Work Phone: [facility] 03-07-2022 11:24-0400 Diastolic blood pressure 60 mm[Hg] Sandy Braswell MD Work Phone: [facility] 03-07-2022 11:24-0400 Heart rate 63 /min Sandy Braswell MD Work Phone: [facility] 03-07-2022 11:24-0400 SaO2% (BldA) [Mass fraction] 98 % Sandy Braswell MD Work Phone: [facility] 03-07-2022 11:24-0400 Systolic blood pressure 124 mm[Hg] Sandy Braswell MD Work Phone: [facility] 02-27-2022 09:36-0400 Body height 152.4 cm Adriel Solis MD Work Phone: [facility] 02-27-2022 09:36-0400 Body temperature 97.5 [degF] Adriel Solis MD Work Phone: [facility] 02-27-2022 09:36-0400 Body weight 61.24 kg Adriel Solis MD Work Phone: [facility] 02-27-2022 09:36-0400 Diastolic blood pressure 62 mm[Hg] Adriel Solis MD Work Phone: [facility] 02-27-2022 09:36-0400 Heart rate 76 /min Adriel Solis MD Work Phone: [facility] [facility] 02-27-2022 09:36-0400 Respiratory rate 16 /min Adriel Solis MD Work Phone: [facility] 02-27-2022 09:36-0400 SaO2% (BldA) [Mass fraction] 98 % Adriel Solis MD Work Phone: [facility] 02-27-2022 09:36-0400 Systolic blood pressure 130 mm[Hg] Adriel Solis MD Work Phone: [facility] 01-27-2022 13:20-0400 Body height 153.7 cm Sandy Braswell MD Work Phone: [facility] 01-27-2022 13:20-0400 Body weight 62.14 kg Sandy Braswell MD Work Phone: [facility] 01-27-2022 13:20-0400 Diastolic blood pressure 48 mm[Hg] Sandy Braswell MD Work Phone: [facility] 01-27-2022 13:20-0400 Heart rate 64 /min Sandy Braswell MD Work Phone: [facility] 01-27-2022 13:20-0400 SaO2% (BldA) [Mass fraction] 97 % Sandy Braswell MD Work Phone: [facility] 01-27-2022 13:20-0400 Systolic blood pressure 120 mm[Hg] Sandy Braswell MD Work Phone: [facility] Encounters Encounter Date Encounter Type Care Provider Facility Start: 01-03-2025 ambulatory [facility] Facility:[facility] Start: 12-21-2024 ambulatory [facility] Start: 12-20-2024 End: 12-20-2024 ambulatory Sandy Braswell MD Work Phone: [facility] [place] Comment on above: Neurologic Problem Start: 12-13-2024 End: 12-13-2024 Chart abstracting Sandy Braswell MD Work Phone: [facility] Start: 12-12-2024 End: 12-12-2024 Patient encounter procedure Itzel Dominguez NP-C -[facility] Work Phone: Start: 12-12-2024 End: 12-12-[address] 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, bilateral (HCC) (Primary Dx); Pseudophakia; Punctate keratitis, bilateral Start: 11-15-2024 End: 11-15-2024 ambulatory HANNAH RIVERA Facility:[facility] Start: 11-08-2024 End: 11-08-2024 Patient encounter procedure Rachel Jean APRN.CNP Work Phone: General Surgery Comment on above: Incisional hernia, w ithout obstruction or gangrene (Primary Dx) Start: 11-08-2024 End: 11-08-2024 ambulatory SANDY BRASWELL Facility:[facility] Start: 11-04-2024 End: 11-07-2024 Telephone encounter Adriel Solis MD Work Phone: General Surgery Comment on above: Appointment (Post Op ); Post Op Start: 11-01-2024 End: 11-01-2024 ambulatory UNKNOWN PROVIDER Facility:[facility] Start: 10-31-2024 End: 10-31-2024 Patient encounter procedure Itzel SANCHEZ -[facility] Work Phone: Start: 10-31-2024 End: 10-31-[address] Sandy Braswell MD Work Phone: [facility] Work Phone: Start: 10-25-2024 End: 10-25-2024 Patient encounter procedure Itzel SACNHEZ -[facility] Out Work Phone: Start: 10-25-2024 End: 10-25-[address] Sandy Braswell MD Work Phone: [facility] Work Phone: Start: 10-21-2024 End: 10-21-2024 ambulatory SANDY BRASWELL Facility:[facility] Start: 10-19-2024 End: 10-19-2024 Patient encounter procedure Venessa WOLFE -[facility] Work Phone: Start: 10-19-2024 End: 10-19-[address] Sandy Braswell MD Work Phone: [facility] Work Phone: Start: 10-14-2024 End: 11-03-2024 Preprocedural examination done Angi Martin APRN.CNP Work Phone: [facility] Work Phone: Start: 10-14-2024 End: 11-03-2024 Telephone encounter Angi Martin APRN.CNP Work Phone: Pre Anesthesia Comment on above: Results Start: 10-13-2024 End: 10-13-2024 ambulatory SANDY BRASWELL Facility:[facility] Start: 10-13-2024 Encounter for other preprocedural examination SANDY BRASWELL [facility] Start: 10-13-2024 End: 10-13-2024 PAT Pac [facility] 1 Work Phone: Pre Anesthesia Comment on above: Pre-operative examin ation (Primary Dx); 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); Insomnia, unspecified type; Coronary artery disease involving [place] heart without angina pectoris, unspecified vessel or lesion type; Primary hypertension; Hyperlipidemia, unspecified hyperlipidemia type; Bilateral carotid artery stenosis; Chronic obstructive pulmonary disease, unspecified COPD type (HCC); Obstructive sleep apnea; Former smoker; Gastroesophageal reflux disease without esophagitis; Stage 3 chronic kidney disease, unspecified whether stage 3a or 3b CKD (HCC); Hypothyroidism, unspecified type; Osteoporosis, unspecified osteoporosis type, unspecified pathological fracture presence; Depression, unspecified depression type; Generalized anxiety disorder; VHD (valvular heart disease) Start: 10-13-2024 End: 10-13-2024 Preprocedural examination done [facility] [place] 1 Work Phone: [facility] Start: 09-28-2024 End: 09-28-2024 Patient encounter procedure Adriel Solis MD Work Phone: General Surgery Comment on above: Incisional hernia, w ithout obstruction or gangrene (Primary Dx); Type 2 diabetes mellitus with hyperglycemia, with long-term current use of insulin (HCC); Peripheral vascular disease; Presence of coronary angioplasty implant and graft; Chronic kidney disease, stage 1 Start: 09-28-2024 End: 09-28-2024 ambulatory SANDY BRASWELL Facility:[facility] Start: 09-26-2024 End: 09-27-2024 Refill Sandy Braswell MD Work Phone: [facility] Comment on above: Refill Request Start: 09-22-[address] Sandy Braswell MD Work Phone: [facility] Start: 09-22-2024 End: 09-22-2024 Patient encounter procedure Janessa Lu NP-C -[facility] Work Phone: Start: 09-22-2024 End: 09-22-2024 Preoperative state Janessa Lu NP-C [facility] Start: 09-22-2024 End: 09-22-2024 ambulatory Janessa Lu NP Facility:[facility] Start: 09-19-2024 End: 10-14-2024 Telephone encounter Flaca Fischer APRN.CNP Work Phone: [facility] Comment on above: Patient Update Start: 09-19-2024 End: 09-19-2024 Office outpatient visit 15 minutes Flaca Fischer APRN.CNP Work Phone: [facility] Comment on above: Age-related osteopor osis without current pathological fracture (Primary Dx) Start: 09-19-2024 End: 09-19-2024 ambulatory FLACA FISCHER Facility:[facility] Start: 09-13-2024 End: 09-13-2024 Patient encounter procedure Yael Joe NP-C -[facility] Work Phone: Start: 09-13-2024 End: 09-13-2024 ambulatory Yael Joe NP Facility:[facility] Start: 09-12-2024 End: 09-12-2024 Patient encounter procedure Itzel Dominguez NP-C -[facility] Work Phone: Start: 09-12-2024 End: 09-13-2024 ambulatory Yael Joe NP Facility:[facility] Start: 09-07-2024 End: 09-09-2024 Telephone encounter Adriel Solis MD Work Phone: General Surgery Start: 09-01-2024 End: 09-02-2024 Telephone encounter Sandy Braswell MD Work Phone: [facility] Comment on above: Results Start: 08-31-2024 End: 08-31-[address] Sandy Braswell MD Work Phone: [facility] Work Phone: Start: 08-31-2024 End: 08-31-[address] Sandy Braswell MD -Outpatient Breast Imaging Work Phone: Start: 08-30-2024 End: 08-31-2024 ambulatory SANDY BRASWELL Facility:[facility] Start: 08-30-2024 End: 08-30-2024 Subsequent hospital visit by physician Ct Prep [facility] Cat Scan Comment on above: Incisional hernia, w ithout obstruction or gangrene [K43.2] Start: 08-30-2024 ambulatory [place] ity:[facility] Start: 08-23-2024 End: 08-23-2024 Telephone encounter Sandy Braswell MD Work Phone: [facility] Comment on above: Orders Start: 08-22-2024 End: 08-22-2024 Refill Sandy Braswell MD Work Phone: [facility] Comment on above: Refill Request Start: 08-17-2024 End: 08-17-2024 ambulatory ADRIEL SOLIS Facility:[facility] Start: 08-17-2024 End: 08-17-2024 Patient encounter procedure Adriel Solis MD Work Phone: General Surgery Comment on above: Incisional hernia, w ithout obstruction or gangrene; Type 2 diabetes mellitus with hyperglycemia, with long-term current use of insulin (HCC); Peripheral vascular disease (HCC); Presence of coronary angioplasty implant and graft; Chronic kidney disease, stage 1 Start: 08-03-2024 End: 08-03-2024 ambulatory SANDY BRASWELL Facility:[facility] Start: 08-03-2024 End: 08-03-2024 Patient encounter procedure Sandy Braswell MD Work Phone: [facility] [place] Comment on above: Type 1 diabetes george itus with diabetic neuropathy (HCC) (Primary Dx); Coronary artery disease involving [place] heart without angina pectoris, unspecified vessel or lesion type; Primary hypertension; Hyperlipidemia, unspecified hyperlipidemia type; Obstructive sleep apnea; Chronic obstructive pulmonary disease, unspecified COPD type ([facility]); Gastroesophageal reflux disease without esophagitis; Stage 3 chronic kidney disease, unspecified whether stage 3a or 3b CKD ([facility]); Hypothyroidism, unspecified type; Type 1 diabetes mellitus with proliferative retinopathy, macular edema presence unspecified, unspecified laterality, unspecified proliferative retinopathy type ([facility]); Depression, unspecified depression type; Generalized anxiety disorder; Encounter for screening mammogram for malignant neoplasm of breast; Screening for lung cancer; Asymptomatic postmenopausal status; Hx of CABG Start: 07-07-2024 End: 07-11-2024 Telephone encounter Sandy Braswell MD Work Phone: [facility] [place] Comment on above: Medication Request Start: 06-17-2024 End: 06-17-2024 Refill Sandy Braswell MD Work Phone: [facility] [place] Comment on above: Refill Request Start: 06-15-2024 End: 06-15-2024 Patient encounter procedure Itzel SANCHEZ -[facility] [place] Work Phone: Start: 06-15-2024 End: 06-15-2024 ambulatory Iztel Dominguez Facility:[facility] Start: 06-13-2024 End: 06-13-2024 Patient encounter procedure Itzel SANCHEZ -[facility] Work Phone: Start: 06-13-2024 End: 06-13-2024 ambulatory Itzel Dominguez Facility:[facility] Start: 04-20-2024 [facility] Start: 04-18-2024 End: 04-18-2024 Chart abstracting Sandy Braswell MD Work Phone: [facility] Start: 04-16-2024 End: 04-16-2024 ambulatory [facility] Facility:[facility] Start: 04-12-2024 End: 04-12-2024 ambulatory Mira [place] Facility:[facility] Start: 03-28-2024 End: 03-30-2024 Refill Sandy Braswell MD Work Phone: [facility] Comment on above: Refill Request lung screening Start: 03-16-2024 ambulatory [place] Facility:[facility] Start: 03-15-2024 End: 03-15-2024 ambulatory Sandy Braswell MD Work Phone: [facility] Comment on above: Allied Health Visit (Medication Adherence Outreach/) Start: 03-14-2024 End: 03-14-2024 ambulatory [facility] Start: 02-29-2024 End: 03-01-2024 Telephone encounter Sandy Braswell MD Work Phone: [facility] Comment on above: Blood Pressure Start: 02-29-2024 End: 02-29-2024 ambulatory [facility] Start: 02-26-2024 End: 02-26-2024 ambulatory [facility] Facility:[facility] Start: 01-22-2024 End: 02-23-2024 Evaluation and management of inpatient [facility] Start: 01-20-2024 ambulatory Itzel Alberto Facility :[facility] Start: 01-15-2024 End: 01-15-2024 ambulatory [facility] Start: 01-15-2024 End: 01-15-2024 Encounter for other preprocedural examination [facility] Start: 01-12-2024 End: 01-12-2024 ambulatory [facility] Start: 01-05-2024 End: 01-05-2024 ambulatory [facility] Start: 01-01-2024 End: 01-01-2024 ambulatory [facility] Start: 12-31-2023 End: 12-31-2023 ambulatory Gian Katz Facility:[facility] Start: 12-30-2023 Refill Sandy Braswell MD Work Phone: [facility] [place] Comment on above: Refill Request Start: 12-14-2023 End: 12-14-2023 Patient encounter procedure Sandy Braswell MD Work Phone: [facility] [place] Comment on above: Type 1 diabetes george itus with diabetic neuropathy (HCC) (Primary Dx); Status post coronary artery stent placement; Depression; Primary hypertension; Hyperlipidemia, unspecified hyperlipidemia type; Hypothyroidism, unspecified type; Generalized anxiety disorder; Spinal stenosis of lumbar region, unspecified whether neurogenic claudication present; Family history of colon cancer; Cellulitis of knee; Depression, unspecified depression type Start: 12-14-2023 End: 12-14-2023 ambulatory SANDY BRASWELL Facility:[facility] Start: 12-09-2023 Refill Sandy Braswell MD Work Phone: [facility] Comment on above: Refill Request Start: 12-01-2023 Chart abstracting Sandy Saenz MD Work Phone: [facility] Start: 11-19-2023 End: 11-19-2023 Patient encounter procedure Iliana Quan OD Work Phone: Ophthalmology Comment on above: S/P YAG capsulotomy, right (Primary Dx); Pseudophakia Start: 11-11-2023 End: 11-11-2023 Patient encounter procedure Dariran Christensen MD Work Phone: Ophthalmology Comment on above: PCO (posterior capsu lar opacification), right (Primary Dx); Pseudophakia; 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, bilateral (HCC); Punctate keratitis, bilateral Start: 11-05-2023 End: 11-05-2023 Office outpatient visit 15 minutes Dejuan Montalvo MD, PhD Work Phone: Ophthalmology Comment on above: 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, bilateral (HCC) Start: 09-03-2023 End: 09-03-2023 Office outpatient new 45 minutes Dejuan Montalvo MD, PhD Work Phone: Ophthalmology Comment on above: 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, bilateral (HCC) (Primary Dx) Start: 08-13-2023 End: 08-13-2023 Patient encounter procedure Hannah Rivera OD Work Phone: Ophthalmology Comment on above: 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 Sandy Braswell Work Phone: [facility] Work Phone: Start: 06-23-2023 End: 06-23-[address] Sandy Braswell Work Phone: [facility] Work Phone: Start: 04-08-2023 End: 04-08-[address] Sandy Braswell Work Phone: [facility] Work Phone: Start: 03-26-2023 Refill Sandy Braswell MD Work Phone: [facility] Comment on above: Refill Request Start: 03-18-2023 End: 03-18-[address] Sandy Braswell Work Phone: [facility] Work Phone: Start: 03-18-2023 End: 03-18-[address] Sandy Braswell Work Phone: [facility]-Physical Therapy Work Phone: Start: 03-18-[address] Bryan Braswell Work Phone: [facility] Work Phone: Start: 03-02-2023 End: 03-02-[address] Sandy Braswell Work Phone: [facility]-Laboratory Work Phone: Start: 02-19-2023 Refill Sandy Braswell MD Work Phone: [facility] Comment on above: Refill Request Start: 02-18-2023 Non-patient / Non-visit Dr. Emily Braswell Work Phone: [facility] Work Phone: Start: 02-18-2023 Non-patient / Non-visit Dr. Emily Braswell Work Phone: [facility] Start: 02-18-2023 End: 02-18-[address] Sandy Braswell Work Phone: [facility] Work Phone: Start: 02-18-2023 End: 02-18-[address] Sandy Braswell Work Phone: [facility]-Cardiovascula r Services Work Phone: Start: 02-13-2023 ambulatory Sarika Stanford MA [facility] Comment on above: Population Health Na vigation Outreach ([employer] Care Gaps ) Start: 02-12-2023 End: 02-12-[address] Sandy Braswell Work Phone: [facility] Work Phone: Start: 01-21-2023 Telephone encounter Sandy Braswell MD Work Phone: [facility] Comment on above: Results Start: 01-20-2023 End: 01-20-2023 Patient encounter procedure Sandy Braswell MD Work Phone: [facility] Comment on above: Type 1 diabetes george itus with diabetic neuropathy (HCC) (Primary Dx); DDD (degenerative disc disease), lumbar; Coronary artery disease involving [place] heart without angina pectoris, unspecified vessel or lesion type; Primary hypertension; Hyperlipidemia, unspecified hyperlipidemia type; Obstructive sleep apnea; Chronic obstructive pulmonary disease, unspecified COPD type ([facility]); Gastroesophageal reflux disease without esophagitis; Stage 3 chronic kidney disease, unspecified whether stage 3a or 3b CKD ([facility]); Type 1 diabetes mellitus with proliferative retinopathy, macular edema presence unspecified, unspecified laterality, unspecified proliferative retinopathy type ([facility]); Hypothyroidism, unspecified type; Generalized anxiety disorder; Depression, unspecified depression type; Medication monitoring encounter Start: 01-07-2023 End: 01-07-[address] Sandy Braswell Work Phone: [facility] Work Phone: Start: 01-06-2023 End: 01-06-[address] Sandy Braswell Work Phone: [facility] Work Phone: Start: 01-06-2023 End: 01-06-[address] Sandy Braswell Work Phone: [facility] Work Phone: Start: 12-22-2022 Non-patient / Non-visit Dr. Emily Braswell Work Phone: [facility] Start: 12-22-2022 End: 12-22-[address] Sandy Braswell Work Phone: [facility] Work Phone: Start: 12-22-2022 End: 12-22-[address] Sandy Braswell Work Phone: [facility]Cardiov[facility] Work Phone: Start: 12-04-2022 End: 12-04-[address] Sandy Braswell Work Phone: [facility] Vascular Surgery Work Phone: Start: 11-27-2022 Documentation procedure Mammog barbara Coordinator [facility] Start: 11-27-2022 Letter encounter Mammography Coordinator [facility] Start: 11-27-2022 Telephone encounter Sandy Braswell MD Work Phone: [facility] Comment on above: Orders Start: 11-26-2022 End: 11-26-2022 Subsequent hospital visit by physician Screen Mammo [facility] Mammogram Comment on above: Screening breast exa mination [Z12.39] Start: 11-18-2022 Refill Sandy Braswell MD Work Phone: [facility] [place] Comment on above: Refill Request Start: 10-24-2022 End: 10-24-[address] Sandy Braswell Work Phone: [facility]opa[facility] Work Phone: Start: 10-21-2022 Non-patient / Non-visit Dr. Emily Braswell Work Phone: [facility] Start: 10-21-2022 End: 10-21-2022 Admission to same day surgery center Dr. Sandy Braswell Work Phone: [facility]-Pharmacy Retail Support Specialist/Special Procedures Work Phone: Start: 10-07-2022 End: 10-07-[address] Sandy Braswell Work Phone: [facility] Vascular Surgery Work Phone: Start: 09-30-2022 End: 09-30-[address] Sandy Braswell Work Phone: [facility] Work Phone: Start: 09-30-2022 End: 09-30-[address] Sandy Braswell Work Phone: [facility] Start: 09-26-2022 Telephone encounter Sandy Braswell MD Work Phone: [facility] [place] Comment on above: Patient Update Start: 09-26-2022 End: 09-26-2022 Subsequent hospital visit by physician [facility] (I-Stat) Work Phone: Cat Scan Comment on above: Incisional hernia, w ithout obstruction or gangrene [K43.2] Start: 09-24-2022 Refill Sandy Braswell MD Work Phone: [facility] [place] Comment on above: Refill Request Start: 09-19-2022 End: 09-19-2022 Patient encounter procedure Sandy Braswell MD Work Phone: [facility] [place] Comment on above: Type 1 diabetes george itus with diabetic neuropathy (HCC) (Primary Dx); Insomnia, unspecified type; Hyperlipidemia, unspecified hyperlipidemia type; Primary hypertension; Coronary artery disease involving [place] heart without angina pectoris, unspecified vessel or lesion type; Chronic obstructive pulmonary disease, unspecified COPD type (HCC); Obstructive sleep apnea; Gastroesophageal reflux disease without esophagitis; Stage 3 chronic kidney disease, unspecified whether stage 3a or 3b CKD (HCC); Hypothyroidism, unspecified type; Type 1 diabetes mellitus with proliferative retinopathy, macular edema presence unspecified, unspecified laterality, unspecified proliferative retinopathy type (HCC); Generalized anxiety disorder; Screening breast examination; Family history of colon cancer Start: 09-15-2022 End: 09-15-[address] Sandy Braswell Work Phone: [facility] Start: 09-12-2022 End: 09-12-[address] Sandy Braswell Work Phone: [facility] Start: 09-10-2022 Refill Flaca Fischer APRN.CNP Work Phone: [facility] [place] Comment on above: Refill Request Start: 09-05-2022 End: 09-05-[address] Sandy Braswell Work Phone: [facility] Work Phone: Start: 09-05-2022 End: 09-05-[address] Sandy Braswell Work Phone: [facility] Start: 09-02-2022 End: 09-02-2022 Patient encounter procedure Adriel Solis MD Work Phone: General Surgery Comment on above: Incisional hernia, w ithout obstruction or gangrene (Primary Dx) Start: 09-02-2022 [facility] above: Population Health Na vigation Outreach (Human care gap ) Start: 08-14-2022 End: 08-14-[address] Sandy Braswell Work Phone: [facility] Work Phone: Start: 08-14-2022 End: 08-14-[address] Sandy Braswell Work Phone: [facility] Start: 08-14-2022 End: 08-14-[address] Sandy Braswell Work Phone: [facility] Vascular Surgery Start: 08-04-2022 Telephone encounter Flaca he APRN.CNP Work Phone: [facility] Comment on above: Results Start: 07-28-2022 End: 07-28-[address] Sandy Braswell Work Phone: [facility] Start: 06-27-2022 Non-patient / Non-visit Dr. Jaden Jones Work Phone: [facility] Start: 06-26-2022 End: 06-26-[address] Gian Jones Work Phone: [facility] Work Phone: Start: 06-26-2022 End: 06-26-[address] Gian Jones Work Phone: [facility] Start: 06-16-2022 End: 06-16-[address] Gian Jones Work Phone: [facility] Endocrinology Start: 04-29-2022 End: 04-29-2022 Patient encounter procedure Evelin Lanie Benjaminle DO Work Phone: Vascular Surgery Comment on above: Peripheral vascular disease (HCC) (Primary Dx); Other diabetic neurological complication associated with type 2 diabetes mellitus (HCC); PAD (peripheral artery disease) (HCC); Screening for nephropathy Start: 04-21-2022 Telephone encounter Sandy Braswell MD Work Phone: [facility] Comment on above: Results Start: 04-18-2022 End: 04-18-2022 Subsequent hospital visit by physician [facility] Work Phone: Radiology Comment on above: Gallbladder mass [K8 2.8] Start: 03-31-2022 End: 03-31-2022 Patient encounter procedure Hannah Rivera OD Work Phone: Ophthalmology Comment on above: 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, bilateral (HCC) (Primary Dx); Punctate keratitis, bilateral; PCO (posterior capsular opacification), right; Pseudophakia Lump of skin; Acute shoulder bursitis, right; Mass of joint of right shoulder Start: 03-21-2022 Telephone encounter Sandy Braswell MD Work Phone: [facility] Comment on above: Patient Question Start: 03-18-2022 Telephone encounter Sandy Braswell MD Work Phone: [facility] Comment on above: Insurance Authorizat ion Start: 03-17-2022 ambulatory No Pcp Germainate Shannon jansen [place] Start: 03-14-2022 Telephone encounter Sandy Braswell MD Work Phone: [facility] Comment on above: Orders; Opened In Er ror Start: 03-14-2022 End: 03-14-[address] Gian Jones Work Phone: [facility] Endocrinology Start: 03-07-2022 End: 03-07-2022 Patient encounter procedure Sandy Braswell MD Work Phone: [facility] [place] Comment on above: Type 1 diabetes george itus with diabetic neuropathy (HCC) (Primary Dx); Depression; Other diabetic neurological complication associated with type 2 diabetes mellitus (HCC); Hyperlipidemia, unspecified hyperlipidemia type; Hypertension, unspecified type; Coronary artery disease involving [place] heart without angina pectoris, unspecified vessel or lesion type; Medication monitoring encounter; DDD (degenerative disc disease), lumbar; Depression, unspecified depression type Start: 02-27-2022 End: 02-27-2022 Patient encounter procedure Adriel Solis MD Work Phone: General Surgery Comment on above: Acute shoulder bursi tis, right (Primary Dx); Lump of skin; Mass of joint of right shoulder Start: 02-19-2022 Orders Only Albert kimball Work Phone: Podiatry Comment on above: Other diabetic neuro logical complication associated with type 2 diabetes mellitus (HCC) (Primary Dx); PAD (peripheral artery disease) (HCC) Start: 02-07-2022 End: 02-07-2022 Patient encounter procedure Hannah Rivera OD Work Phone: Ophthalmology Comment on above: 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, bilateral (HCC) (Primary Dx); Pseudophakia; Punctate keratitis, bilateral; PCO (posterior capsular opacification), right Start: 02-05-2022 Telephone encounter Sandy Braswell MD Work Phone: [facility] [place] Comment on above: Results Start: 01-31-2022 Telephone encounter Sandy Braswell MD Work Phone: [facility] [place] Comment on above: DM Supplies Forms Appointment Start: 01-31-2022 End: 01-31-2022 Subsequent hospital visit by physician [facility] Work Phone: Radiology Comment on above: Renal cyst [N28.1] Start: 01-31-2022 End: 01-31-2022 Patient encounter procedure Albert Good Work Phone: Podiatry Comment on above: Other diabetic neuro logical complication associated with type 2 diabetes mellitus (HCC) (Primary Dx); Tailor's bunion of both feet; Diminished pulses in lower extremity; Onychomycosis; Pain in toe of left foot; Pain in toe of right foot Start: 01-30-2022 Telephone encounter Sandy Braswell MD Work Phone: Family [facility] [place] Comment on above: walker prescription (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 ) Start: 01-28-2022 Telephone encounter Sandy Braswell MD Work Phone: [facility] [place] Comment on above: Results Start: 01-27-2022 End: 01-27-2022 Subsequent hospital visit by physician [facility] [place] Work Phone: Radiology Comment on above: Chronic right should er pain [M25.511, G89.29] Start: 01-27-2022 Telephone encounter Sandy Braswell MD Work Phone: [facility] [place] Comment on above: Results Start: 01-27-2022 End: 01-27-2022 Patient encounter procedure Sandy Braswell MD Work Phone: [facility] [place] Comment on above: Type 1 diabetes george itus with diabetic neuropathy (HCC) (Primary Dx); Special screening examination for viral disease; Albuminuria; Coronary artery disease of [place] heart with stable angina pectoris, unspecified vessel or lesion type (HCC); Diabetic polyneuropathy associated with type 1 diabetes mellitus (HCC); Microalbuminuria; DDD (degenerative disc disease), lumbar; Chronic right shoulder pain; Renal cyst; Obstructive sleep apnea Start: 12-25-2021 Telephone encounter Sandy Braswell MD Work Phone: Family [facility] [place] Comment on above: Patient Question Start: 05-04-2015 End: 05-04-2015 Refill Sandy Braswell MD Work Phone: Internal Medicine [place] Comment on above: Refill Request Start: 10-23-2010 End: 05-31-2012 Patient encounter status Dejuan Montalvo MD, PhD Work Phone: [facility] Procedures Date Procedure Procedure Detail Performing Clinician Start: 12-12-2024 Hemoglobin A1c/Hemoglobin.total in Blood [facility] Provider Start: 11-15-2024 Computerized ophthal [place] imaging retina Hannah Rivera OD Work Phone: Start: 10-13-2024 Ecg routine ecg w/le ast 12 lds i&r only [facility] Provider Start: 09-13-[address] Gamaliel Braswell MD Work Phone: Start: 08-31-2024 Serum inorganic phos phate measurement Dr. Sandy Braswell MD Work Phone: Start: 08-31-2024 Dual energy X-ray absorptiometry Dr. Sandy Braswell MD Work Phone: Start: 08-31-2024 Screening mammography D eliezer Braswell MD Work Phone: Start: 08-03-2024 History of coronary artery bypass grafting Hx of CABG Sandy Braswell MD Work Phone: Start: 04-16-2024 Lipid panel [facility] Provid er Start: 02-29-2024 Follow-up visit SUSANA BECERRA Start: 02-18-2024 Antibody screen SUSANA BECERRA Comment on above: Performed By: #### L [id number] ####It Business Analyst: DANELLE MASON ([phone])[facility] B[facility] [place] [address] Start: 02-11-2024 Antibody screen SUSANA BECERRA Comment on above: Performed By: #### L [id number] ####It Business Analyst: DANELLE MASON ([phone])[facility] ([facility])[address] [place] [address] Start: 01-27-2024 Antibody screen SUSANA BECERRA Comment on above: Performed By: #### L [id number] ####It Business Analyst: DANELLE MASON ([phone])[facility] BLO[facility] ([facility])[address] [place] [address] Start: 01-15-2024 Antibody screen SUSANA BECERRA Comment on above: Performed By: #### L [id number] ####It Business Analyst: KELLIE BARRAGAN ([phone])[facility] BLOOD [facility] ([facility])[address] Start: 01-01-2024 Follow-up visit SUSANA BECERRA Start: 12-01-2023 Lipid panel [facility] Provid er Start: 11-19-2023 Computerized ophthal shaka imaging retina Iliana Falcon Avelina OD Work Phone: Start: 11-11-2023 Post-cataract laser surgery Darrian Christensen MD Work Phone: Start: 11-05-2023 Computerized ophthal [place] imaging retina Dejuan Montalvo MD, PhD Work Phone: Start: 09-03-2023 Treatment extensive retinopathy photocoagulation Dejuan Montalvo MD, PhD Work Phone: Start: 09-03-2023 Computerized ophthal [place] imaging retina Dejuan Montalvo MD, PhD Work Phone: Start: 02-18-2023 Cardiovascular stres s test using pharmacologic stress agent Dr. Sandy Braswell Work Phone: Start: 01-06-[address] Gamaliel Braswell Work Phone: Start: 11-26-2022 End: 11-26-2022 Mammography Sandy Braswell MD Work Phone: Start: 09-30-2022 MRI of lumbar spine Dr. Sandy Braswell Work Phone: Start: 09-26-2022 Ct abdomen & pelvis w/o contrast material Adriel Solis MD Work Phone: Start: 09-15-2022 Hemoglobin A1c/Hemoglobin.total in Blood [facility] Provider Start: 09-12-2022 X-ray of lumbar spin e, two or three views Dr. Sandy Braswell Work Phone: Start: 09-05-2022 CT of abdominal aort a with contrast Dr. Sandy Braswell Work Phone: Start: 04-18-2022 Us abdominal real ti me w/image limited Sandy Braswell MD Work Phone: Start: 03-31-2022 Computerized ophthal sh[place] imaging retina Hannah Rivera OD Work Phone: Start: 02-07-2022 Computerized ophthal shaka imaging retina Hannah Josef Miguel OD Work Phone: Start: 01-31-2022 Us retroperitoneal r eal time w/image complete Sandy Braswell MD Work Phone: Start: 01-27-2022 Radex shoulder compl ete minimum 2 views Sandy Braswell MD Work Phone: Start: 11-15-2021 Mammography Sandy Saenz MD Work Phone: Start: 11-13-2021 Hemoglobin A1c/Hemoglobin.total in Blood [facility] Provider Start: 11-13-2021 Lipid panel [facility]cf Provid er Start: 11-13-2021 MICROALBUMIN/CREATIN INE UR W RATIO (EXTERNAL) [facility] Provider Start: 11-13-2021 Thyrotropin [Units/v olume] in Serum or Plasma [facility] Provider Start: 07-19-2014 Mammography Sandy Saenz MD Work Phone: Start: 07-04-2010 History of placement of stent for coronary artery disease Status post coronary artery stent placement Sandy Braswell MD Work Phone: Start: 09-23-2007 Colonoscopy Sandy Saenz MD Work Phone: History of coronary artery bypass grafting Status post aorto-coronary artery bypass graft Dr. Sandy Braswell MD Work Phone: History of coronary artery bypass grafting Status post aorto-coronary artery bypass graft Janessa Lu CAPSULE MACHINE OPERATOR-C History of placement of stent for coronary artery disease Status post coronary artery stent placement Sandy Braswell MD Work Phone: History of placement of stent for coronary artery disease Status post coronary artery stent placement Sandy Braswell MD Work Phone: Plan of Treatment Date Care Activity Detail Author Start: 08-31-2026 Screening for osteoporosis Bone Density Screening [facility] Start: 11-15-2025 Glaucoma screening Dilated Retinal E xam [facility] Start: 11-08-2025 zzBP Controlled (<130/80) (Retired) zzBP Controlled (<130/80) (Retired) [facility] Start: 10-13-2025 BP Controlled (<130/80) BP Controlle d (<130/80) [facility] Start: 10-13-2025 Complete blood count Hemoglobin/Ankush tocrit [facility] Start: 10-13-2025 Creatinine measurement Serum Creatin ine [facility] Start: 09-19-[address] Team [address] Judge cassidy Disease Visit Annual PCP Team Chronic Disease Visit [facility] Start: 09-19-2025 BP Controlled (<130/80) BP Controlle d (<130/80) [facility] Start: 08-31-2025 Screening for malign ant neoplasm of breast Mammogram Screening [facility] Start: 08-03-[address] Judge cassidy Disease Visit Annual PCP Team Chronic Disease Visit [facility] Start: 08-03-2025 BP Controlled (<130/80) BP Controlle d (<130/80) [facility] Start: 08-03-2025 Diabetic foot examination Diabetic Foot Exam [facility] Start: 06-14-2025 Hemoglobin A1c measurement HbA1C [facility] Start: 04-16-2025 Hepatitis B surface antibody level LDL Cholesterol [facility] Start: 02-27-2025 End: 02-27-2025 Patient encounter procedure 02/27/2025 10:20 AM EDT Office Visit Family [facility] [place] [address] [place] [address] Sandy Braswell MD [address] [place], [place] [id number] Medicare Wellness Family [facility] [place] Comment on above: Medicare Wellness Start: 02-21-2025 Creatinine measurement Serum Creatin ine [facility] Start: 02-20-2025 Complete blood count Hemoglobin/Ankush tocakt [facility] Start: 01-30-2025 Influenza vaccination C [facility] Start: 12-26-2024 End: 12-26-2024 Patient encounter procedure 12/26/2024 4:20 PM EDT Office Visit Family [facility] [place] [address] [place] [address] Ruma Valles APRN.ADVANCED CLINICAL SPECIALIST [address] [facility] [place] [id number] Bilateral Hand and Forearm tingling. See triage 12/20/2024. [facility] [place] Comment on above: Bilateral Hand and F orearm tingling. See triage 12/20/2024. Start: 12-13-[address] cassidy Disease Visit Annual PCP Team Chronic Disease Visit [facility] Start: 12-13-2024 Hepatitis B screening Urine Albumin:Creatinine Ratio [facility] Comment on above: Postponed from 01/27 (Declined at this time) Start: 12-13-2024 Hepatitis C screening Hepatitis C Sc macarena [facility] Comment on above: Postponed from 11/17 (Declined at this time) Start: 12-13-2024 Pneumococcal Vaccine : 50+ (3 of 3 - PCV20 or PCV21) Pneumococcal Vaccine: 50+ (3 of 3 - PCV20 or PCV21) [facility] Comment on above: Postponed from 10/02 (Declined at this time) Start: 12-13-2024 Pneumococcal Vaccine : 65+ (3 of 3 - PPSV23 or PCV20) Pneumococcal Vaccine: 65+ (3 of 3 - PPSV23 or PCV20) [facility] Comment on above: Postponed from 10/02 (Declined at this time) Start: 12-13-2024 RSV Vaccine (1 - 1-d ose 60+ series) RSV Vaccine (1 - 1-dose 60+ series) [facility] Comment on above: Postponed from 11/17 (Declined at this time) Start: 12-13-2024 RSV Vaccine (1 - Ris k 60-74 years 1-dose series) RSV Vaccine (1 - Risk 60-74 years 1-dose series) [facility] Comment on above: Postponed from 11/17 (Declined at this time) Start: 12-11-2024 Hemoglobin A1c measurement HbA1C [facility] Start: 11-30-2024 Hepatitis B surface antibody level LDL Cholesterol [facility] Start: 11-28-2024 Influenza vaccination Influenza Vacc ine (#1) [facility] Comment on above: Postponed from 01/30 (Declined at this time) Start: 11-19-2024 End: 04-28-2025 OCT MACULA CIRRUS OU (BOTH EYES) OCT MACULA CIRRUS OU (BOTH EYES) [facility] Imaging Routine 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, bilateral (HCC) Expected: 11/19/2024, Expires: 04/28/2025 [facility] Work Phone: Comment on above: Expected: 11/19/2024 , Expires: 04/28/2025 Start: 11-18-2024 Glaucoma screening Dilated Retinal E martina [facility] Start: 11-15-2024 End: 11-15-2024 Patient encounter procedure 11/15/2024 9:45 AM EDT Office Visit [facility] Ophthalmology [address] [place] [address] Hannah Rivera, OD [address] [place] [address] EYE EXAM Ophthalmology Comment on above: EYE EXAM Start: 11-10-2024 Glaucoma screening Dilated Retinal E martina [facility] Start: 11-08-2024 End: 11-08-2024 Patient encounter procedure 11/08/2024 11:30 AM EDT Office Visit General Surgery [address] [place] [address] Rachel Jean APRN.ADVANCED CLINICAL SPECIALIST [address] [place] [address] post op from hernia repair 6/3 with [facility] General Surgery Comment on above: post op from hernia repair /3 with [facility] Start: 11-04-2024 Glaucoma screening Dilated Retinal E abisai [facility] Start: 11-01-2024 End: 11-01-2024 Admission to same day surgery center 11/01/2024 12:06 PM EDT - 11/01/2024 2:12 PM EDT Surgery [facility] Surgery [address] [place] [id number] Adriel Solis MD [address] [place] [address] LAPAROSCOPIC HERNIA REPAIR INCISIONAL INITIAL REDUCIBLE W/MESH 3cm-10cm [facility] Surgery Comment on above: LAPAROSCOPIC HERNIA REPAIR INCISIONAL INITIAL REDUCIBLE W/MESH 3cm-10cm Start: 11-01-2024 End: 11-01-2024 LAPAROSCOPIC HERNIA REPAIR INCISIONAL INITIAL REDUCIBLE W/MESH 3cm-10cm LAPAROSCOPIC HERNIA REPAIR INCISIONAL INITIAL REDUCIBLE W/MESH 3cm-10cm Incisional hernia, without obstruction or gangrene Type 2 diabetes mellitus with hyperglycemia, with long-term current use of insulin (HCC) Peripheral vascular disease Presence of coronary angioplasty implant and graft Chronic kidney disease, stage 1 11/01/2024 12:06 PM EDT ME OR Start: 11-01-2024 Subsequent hospital visit by physician 11/01/2024 12:06 PM EDT Hospital Encounter [facility] Surgery [address] [place] [id number] Adriel Solis MD [address] [place] [address] Incisional hernia, without obstruction or gangrene [K43.2], Type 2 diabetes mellitus with hyperglycemia, with long-term current use of insulin (HCC) [E11.65, Z79.4], Peripheral vascular disease [I73.9], Presence of coronary angioplasty implant and graft [Z95.5], Chronic kidney disease, stage 1 [N18.1] [facility] Surgery Comment on above: Incisional hernia, w ithout obstruction or gangrene [K43.2], Type 2 diabetes mellitus with hyperglycemia, with long-term current use of insulin (HCC) [E11.65, Z79.4], Peripheral vascular disease [I73.9], Presence of coronary angioplasty implant and graft [Z95.5], Chronic kidney disease, stage 1 [N18.1] Start: 10-25-2024 Iv infusion therapy/prophylaxis /dx 1st to 1 hr [facility] Start: 09-28-2024 End: 09-28-2024 Patient encounter procedure 09/28/2024 3:45 PM EDT Office Visit General Surgery [address] [place] [address] Adriel Solis MD [address] [place], [place] [id number] Discuss Hernia Surgery- Records from cardiology, nephrology & endocrinology under scanned documents- also given to Dr Solis for review General Surgery Comment on above: Discuss Hernia Surge ry- Records from cardiology, nephrology & endocrinology under scanned documents- also given to Dr Solis for review Start: 09-22-2024 Evaluation of diagnostic study results [facility] Start: 09-19-2024 End: 09-19-2024 Patient encounter procedure 09/19/2024 1:40 PM EDT Office Visit Family [facility] [place] [address] [place], [place] [id number] Flaca iFscher APRN.ADVANCED CLINICAL SPECIALIST [address] [place] [address] Discuss tx osteoporosis Family [facility] Comment on above: Discuss tx osteoporo sis Start: 09-17-2024 End: 02-24-2025 OCT MACULA CIRRUS OU (BOTH EYES) OCT MACULA CIRRUS OU (BOTH EYES) [facility] Imaging Routine 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, bilateral (HCC) Expected: 09/17/2024, Expires: 02/24/2025 [facility] Work Phone: Comment on above: Expected: 09/17/2024 , Expires: 02/24/2025 Start: 09-02-2024 Glaucoma screening Dilated Retinal E xam [facility] Start: 08-31-2024 MG Breast - bilatera l Screening [facility] Start: 08-31-2024 Screening mammography SCRN ABEBE M (CAD)W/REDDY BILAT [facility] Start: 08-30-2024 End: 08-30-2024 Patient encounter procedure Cat Scan Comment on above: Incisional hernia, w ithout obstruction or gangrene [K43.2] Start: 08-17-2024 End: 08-17-2024 Patient encounter procedure 08/17/2024 1:45 PM EDT Office Visit General Surgery [address] [place] [address] Adriel Solis MD [address] [place] [address] hernia General Surgery Comment on above: hernia Start: 08-12-2024 Glaucoma screening Dilated Retinal E xam [facility] Start: 08-03-2024 End: 08-03-2024 Patient encounter procedure 08/03/2024 3:20 PM EST Office Visit Family [facility] [place] [address] [place] [address] Sandy Braswell MD [address] [place] [address] 6 month follow up Family [facility] Comment on above: 6 month follow up Start: 06-15-2024 End: 06-15-2024 Patient encounter procedure 06/15/2024 2:40 PM EST Office Visit Family [facility] [place] [address] [place] [address] Sandy Braswell MD [address] [place] [address] 6 month follow up Family [facility] Comment on above: 6 month follow up Start: 06-01-2024 Advance Directive Discussion Advance Directive Discussion [facility] Start: 06-01-2024 Medicare Advantage Annual Wellness Visit Medicare Advantage Annual Wellness Visit [facility] Start: 04-22-2024 Hemoglobin A1c measurement HbA1C [facility] Start: 03-17-2024 End: 03-17-2024 Patient encounter procedure Ophthalmology Comment on above: DFE/ OCT both eyes- full exam *DFE/ OCT both eyes- full exam Start: 02-12-2024 End: 02-12-2024 Patient encounter procedure 02/12/2024 1:30 PM EDT Office Visit [facility] Op[facility]mology [address] [place] [address] Hannah Rivera, OD [address] [place] [address] refraction Ophthalmology Comment on above: refraction Start: 01-31-2024 Influenza vaccination C [facility] Start: 01-21-2024 ANNUAL PCP TEAM SUPERVISOR RECLAMATION CASSIDY DISEASE VISIT ANNUAL PCP TEAM CHRONIC DISEASE VISIT [facility] Start: 01-21-2024 BP CONTROLLED (<130/80) BP CONTROLLE D (<130/80) [facility] Start: 01-21-2024 Complete blood count Hemoglobin/Ankush tocrit [facility] Start: 01-21-2024 Creatinine measurement Serum Creatin ine [facility] Start: 01-21-2024 HEMOGLOBIN/HEMATOCRIT HEMOGLOBIN/HEM ATOCRIT [facility] Start: 01-21-2024 Hepatitis B surface antibody level LDL CHOLESTEROL [facility] Start: 01-21-2024 SERUM CREATININE SERUM CREATININE [facility] Start: 01-07-2024 Influenza vaccination LUNG CANCER SC REENING [facility] Start: 01-07-2024 Screening for malign ant neoplasm of lung Lung Cancer Screening [facility] Start: 12-14-2023 End: 12-14-2023 Patient encounter procedure 12/14/2023 3:40 PM EDT Office Visit Family [facility] [place] [address] [place] [address] Sandy Braswell MD [address] [place] [address] Follow up Family [facility] [place] Comment on above: Follow up Start: 12-10-2023 End: 12-10-2023 Patient encounter procedure 12/10/2023 10:30 AM EDT Office Visit [facility] Ophthalmology [address] [place] [address] Hannah Rivera, OD [address] [place] [address] refraction Ophthalmology Comment on above: refraction Start: 11-27-2023 Mammography [facility] Start: 11-27-2023 Screening for malign ant neoplasm of breast Mammogram Screening [facility] Start: 11-19-2023 End: 11-19-2023 Patient encounter procedure 11/19/2023 2:00 PM EDT Office Visit [facility] Ophthalmology [address] [place] [address] Iliana Quan, OD [address] [place] [address] 1 WK FULL DILATE Ophthalmology Comment on above: 1 WK FULL DILATE Start: 11-16-2023 Screening for osteoporosis Bone Density Screening [facility] Start: 11-11-2023 End: 11-11-2023 Patient encounter procedure 11/11/2023 1:30 PM EDT Office Visit [facility] Ophthalmology [address] [place], [place] [address] Darrian Christensen MD [address] [place] [address] yag eval OD Ophthalmology Comment on above: yag eval OD Start: 09-20-2023 ANNUAL PCP TEAM SUPERVISOR RECLAMATION CASSIDY DISEASE VISIT ANNUAL PCP TEAM CHRONIC DISEASE VISIT [facility] Start: 09-20-2023 BP CONTROLLED (<130/80) BP CONTROLLE D (<130/80) [facility] Start: 09-03-2023 BP CONTROLLED (<130/80) BP CONTROLLE D (<130/80) [facility] Start: 07-14-2023 ANNUAL PCP TEAM SUPERVISOR RECLAMATION CASSIDY DISEASE VISIT ANNUAL PCP TEAM CHRONIC DISEASE VISIT [facility] Start: 07-14-2023 BP CONTROLLED (<130/80) BP CONTROLLE D (<130/80) [facility] Start: 06-13-2023 SERUM CREATININE SERUM CREATININE [facility] Start: 06-01-2023 Advance Directive Discussion Advance Directive Discussion [facility] Start: 03-17-2023 Hemoglobin A1c measurement HbA1C [facility] Start: 03-17-2023 Hemoglobin A1c/Hemoglobin.total in Blood HBA1C [facility] Start: 03-07-2023 ANNUAL PCP TEAM SUPERVISOR RECLAMATION CASSIDY DISEASE VISIT ANNUAL PCP TEAM CHRONIC DISEASE VISIT [facility] Start: 03-07-2023 BP CONTROLLED (<130/80) BP CONTROLLE D (<130/80) [facility] Start: 03-07-2023 Pneumococcal Vaccine : 65+ (3 - PPSV23 or PCV20) Pneumococcal Vaccine: 65+ (3 - PPSV23 or PCV20) [facility] Comment on above: Postponed from 10/02 (Declined at this time) Start: 03-07-2023 PNEUMOCOCCAL: 65+ (3 - PPSV23 if available, else PCV20) PNEUMOCOCCAL: 65+ (3 - PPSV23 if available, else PCV20) [facility] Comment on above: Postponed from 10/02 (Declined at this time) Start: 03-07-2023 PNEUMOCOCCAL: 65+ (3 - PPSV23 or PCV20) PNEUMOCOCCAL: 65+ (3 - PPSV23 or PCV20) [facility] Comment on above: Postponed from 10/02 (Declined at this time) Start: 02-07-2023 Glaucoma screening Dilated Retinal E xam [facility] Start: 02-07-2023 Hepatitis C antibody , confirmatory test DILATED RETINAL EXAM [facility] Start: 02-04-2023 Hepatitis B screening URINE ALBUMIN:CREATININE RATIO [facility] Start: 01-31-2023 3 comp foot exam completed DIABETIC FOOT EXAM [facility] Start: 01-31-2023 Diabetic foot examination Diabetic Foot Exam [facility] Start: 01-30-2023 Influenza vaccination C [facility] Start: 01-27-2023 ANNUAL PCP TEAM SUPERVISOR RECLAMATION CASSIDY DISEASE VISIT ANNUAL PCP TEAM CHRONIC DISEASE VISIT [facility] Start: 01-27-2023 BP CONTROLLED (<130/80) BP CONTROLLE D (<130/80) [facility] Start: 01-27-2023 Hepatitis B screening URINE ALBUMIN:CREATININE RATIO [facility] Start: 01-27-2023 SERUM CREATININE SERUM CREATININE Cl [facility] Start: 01-20-2023 End: 03-22-2023 Comprehensive metabolic 2000 panel - Serum or [facility] Work Phone: Comment on above: Expected: 01/20/2023 , Expires: 03/22/2023 Start: 01-20-2023 End: 03-22-2023 LIPID PANEL, NONFASTING [facility] Work Phone: Comment on above: Expected: 01/20/2023 , Expires: 03/22/2023 Start: 01-20-2023 End: 03-22-2023 Thyrotropin [Units/volume] in Serum or Plasma [facility] Work Phone: Comment on above: Expected: 01/20/2023 , Expires: 03/22/2023 Start: 11-28-2022 Influenza vaccination INFLUENZA (#1) [facility] Comment on above: Postponed from 01/30 (Declined at this time) Start: 11-18-2022 Influenza vaccination LUNG CANCER SC REENING [facility] Start: 11-15-2022 Mammography MAMMOGRAM [facility] Start: 11-13-2022 Hepatitis B surface antibody level LDL CHOLESTEROL [facility] Start: 10-21-2022 Slctv cathj 2nd orde r abdl pel/lxtr art brnch INS CATH ABD/L-EXT ART 2ND [facility] Start: 08-14-2022 Patient referral [facility] Work Phone: Start: 06-16-2022 Patient referral [facility] Work Phone: Start: 06-01-2022 ADVANCE DIRECTIVE DISCUSSION ADVANCE DIRECTIVE DISCUSSION [facility] Start: 05-15-2022 Hemoglobin A1c/Hemoglobin.total in Blood HBA1C [facility] Start: 04-29-2022 End: 06-29-2022 CREATININE BLD CREATININE BLD Lab Routine Screening for nephropathy Expected: 04/29/2022, Expires: 06/29/2022 [facility] Work Phone: Comment on above: Expected: 04/29/2022 , Expires: 06/29/2022 Start: 01-30-2022 Influenza vaccination INFLUENZA (#1) [facility] Start: 01-28-2022 End: 03-30-2022 Bacteria identified in Urine by Culture URINE CULTURE Microbiology Routine Microscopic hematuria Expected: 01/28/2022, Expires: 03/30/2022 [facility] Work Phone: Comment on above: Expected: 01/28/2022 , Expires: 03/30/2022 Start: 01-28-2022 End: 03-30-2022 Urinalysis complete panel - Urine URINALYSIS, WITH MICROSCOPIC Lab Routine Microscopic hematuria Expected: 01/28/2022, Expires: 03/30/2022 [facility] Work Phone: Comment on above: Expected: 01/28/2022 , Expires: 03/30/2022 Start: 10-02-2021 Pneumococcal Vaccine : 50+ (3 of 3 - PCV20 or PCV21) Pneumococcal Vaccine: 50+ (3 of 3 - PCV20 or PCV21) [facility] Start: 10-02-2021 Pneumococcal Vaccine : 65+ (3 - PPSV23 or PCV20) Pneumococcal Vaccine: 65+ (3 - PPSV23 or PCV20) [facility] Start: 10-02-2021 Pneumococcal Vaccine : 65+ (3 of 3 - PPSV23 or PCV20) Pneumococcal Vaccine: 65+ (3 of 3 - PPSV23 or PCV20) [facility] Start: 10-02-2021 PNEUMOCOCCAL: 65+ (3 - PPSV23 or PCV20) PNEUMOCOCCAL: 65+ (3 - PPSV23 or PCV20) [facility] Start: 06-01-2021 ADVANCE DIRECTIVE DISCUSSION ADVANCE DIRECTIVE DISCUSSION [facility] Start: 01-30-2021 Influenza vaccination INFLUENZ A (Season Ended) [facility] Start: 03-04-2020 Urine microalbumin profile DTAP,TDAP,TD (2 - Td or Tdap) [facility] Start: 03-01-2020 Urine microalbumin profile DTAP,TDAP,TD (2 - Td or Tdap) [facility] Start: 2017 ADVANCE DIRECTIVE DISCUSSION ADVANCE DIRECTIVE DISCUSSION [facility] Start: 2017 BONE DENSITY BONE DENSITY [facility] Start: 2017 PNEUMOCOCCAL: 65+ (1 - PCV) PNEUMOCOCCAL: 65+ (1 - PCV) [facility] Start: 2017 PNEUMOVAX AGE 65 AND OVER WITH 5YR LOOKBACK (#1) PNEUMOVAX AGE 65 AND OVER WITH 5YR LOOKBACK (#1) [facility] Start: 09-22-2017 Colonoscopy COLONOSCOPY [facility] Start: 09-22-2017 COLORECTAL CANCER SCREENING COLORECTAL CANCER SCREENING [facility] Start: 09-22-2017 Screening for malign ant neoplasm of colon [facility] Start: 07-19-2015 Mammography MAMMOGRAM [facility] Start: 07-18-2015 Hepatitis C antibody , confirmatory test DILATED RETINAL EXAM [facility] Start: 07-03-2015 3 comp foot exam completed DIABETIC FOOT EXAM [facility] Start: 06-29-2015 Hepatitis B surface antibody level LDL CHOLESTEROL [facility] Start: 12-27-2014 Hemoglobin A1c/Hemoglobin.total in Blood HBA1C [facility] Start: 12-19-2014 Hepatitis B screening URINE ALBUMIN:CREATININE RATIO [facility] Start: 05-31-2014 HEMOGLOBIN/HEMATOCRIT HEMOGLOBIN/HEM ATOCRIT [facility] Start: 01-21-2014 SHINGRIX VACCINE (2 of 3) SHINGRIX VACCINE (2 of 3) [facility] Start: 01-10-2014 SHINGRIX VACCINE (2 of 3) SHINGRIX VACCINE (2 of 3) [facility] Start: 2012 Hepatitis B Vaccine (1 of 3 - Risk 3-dose series) Hepatitis B Vaccine (1 of 3 - Risk 3-dose series) [facility] Start: 2012 RSV Vaccine (1 - 1-d ose 60+ series) RSV Vaccine (1 - 1-dose 60+ series) [facility] Start: 2012 RSV Vaccine (1 - Ris k 60-74 years 1-dose series) RSV Vaccine (1 - Risk 60-74 years 1-dose series) [facility] Start: 2002 Screening for malign ant neoplasm of colon [facility] Start: 1997 COLOGUARD (FIT-DNA) COLOGUARD (FIT-D NA) [facility] Start: [address] COLONOGRAPHY [facility] Start: 1997 FECAL OCCULT BLOOD FECAL OCCULT BLOO D [facility] Start: 1997 Screening for malign ant neoplasm of colon [facility] Start: 1997 SIGMOIDOSCOPY SIGMOIDOSCOPY [facility] Start: 1982 Zoledronic acid therapy ALPHA- 1 ANTITRYPSIN DEFICIENCY SCREENING [facility] Start: 1970 BP CONTROLLED (<130/80) BP CONTROLLE D (<130/80) [facility] Start: 1970 HEPATITIS C SCREENING HEPATITIS C [facility] Start: 1970 Hepatitis C screening Hepatitis C [facility] Start: 1970 SPIROMETRY SPIROMETRY [facility] Start: 1964 Adult depression screening assessment DEPRESSION SCREENING [facility] Start: [birth year]19-1951 COVID-19 VACCINE (#1) COVID-19 VACCI NE (#1) [facility] End: 09-02-2025 BD DXA TRABECULAR BONE SCORE (TBS) BD DXA TRABECULAR BONE SCORE (TBS) Radiology Routine Asymptomatic postmenopausal status 1 Occurrences starting 08/03/2024 until 09/02/2025 [facility] Comment on above: 1 Occurrences starti ng 08/03/2024 until 09/02/2025 End: 10-02-2023 Ct abdomen & pelvis w/o contrast material CT ABD/PEL WO IVCON Radiology Routine Incisional hernia, without obstruction or gangrene 1 Occurrences starting 09/02/2022 until 10/02/2023 [facility] Work Phone: Comment on above: 1 Occurrences starti ng 09/02/2022 until 10/02/2023 End: 09-16-2025 CT Abdomen and Pelvis WO contrast CT ABD/PEL WO IVCON Radiology Routine Incisional hernia, without obstruction or gangrene 1 Occurrences starting 08/17/2024 until 09/16/2025 [facility] Work Phone: Comment on above: 1 Occurrences starti ng 08/17/2024 until 09/16/2025 CT Abdomen and Pelvi s WO contrast CT ABD/PEL WO IVCON Radiology Routine Incisional hernia, without obstruction or gangrene 08/30/2024 3:34 PM EDT [facility] Work Phone: End: 05-29-2023 Cta abdl aorta&bi iliofem w/contrast&postp CTA ABD/PEL LOWER EXTREM W IVCON Radiology Routine Peripheral vascular disease (HCC) 1 Occurrences starting 04/29/2022 until 05/29/2023 [facility] Work Phone: Comment on above: 1 Occurrences starti ng 04/29/2022 until 05/29/2023 End: 01-28-2025 DBT Breast - bilateral screening ABEBE SCREENING W REDDY Radiology Routine Encounter for screening mammogram for breast cancer 1 Occurrences starting 12/30/2023 until 01/28/2025 [facility] Work Phone: Comment on above: 1 Occurrences starti ng 12/30/2023 until 01/28/2025 End: 09-02-2025 DBT Breast - bilateral screening ABEBE SCREENING W REDDY Radiology Routine Encounter for screening mammogram for malignant neoplasm of breast 1 Occurrences starting 08/03/2024 until 09/02/2025 [facility] Work Phone: Comment on above: 1 Occurrences starti ng 08/03/2024 until 09/02/2025 End: 09-02-2025 DXA Skeletal system.axial Views for bone density DXA-AXIAL SKELETON Radiology Routine Asymptomatic postmenopausal status 1 Occurrences starting 08/03/2024 until 09/02/2025 [facility] Comment on above: 1 Occurrences starti ng 08/03/2024 until 09/02/2025 End: 10-13-2025 ECG COMPLETE ECG COMPLETE ECG Routine Pre-operative examination 1 Occurrences starting 10/13/2024 until 10/13/2025 [facility] Work Phone: Comment on above: 1 Occurrences starti ng 10/13/2024 until 10/13/2025 ECG COMPLETE ECG COMPLETE ECG 10/13/2024 10:31 AM EDT [facility] End: 10-19-2023 ABEBE SCREENING ABEBE SCREENING Radiology Routine Screening breast examination 1 Occurrences starting 09/19/2022 until 10/19/2023 [facility] Work Phone: Comment on above: 1 Occurrences starti ng 09/19/2022 until 10/19/2023 Microalbumin/Creatin ine panel in random Urine ALBUMIN QUANT 24H UR Lab Routine Proteinuria, unspecified type Ordered: 01/28/2022 [facility] Work Phone: Comment on above: Ordered: 01/28/2022 NM Heart Views W str ess and W radionuclide IV [facility] Patient referral [facility] Work Phone: End: 01-31-2023 PVR ANK PRESS [facility] PVR ANK [facility]ESS [facility] Vascular Lab Routine Other diabetic neurological complication associated with type 2 diabetes mellitus (HCC) Diminished pulses in lower extremity 1 Occurrences starting 01/31/2022 until 01/31/2023 [facility] Work Phone: Comment on above: 1 Occurrences starti ng 01/31/2022 until 01/31/2023 TOX SCREEN ROUT UR TOX SCREEN RO UT UR Lab Routine Medication monitoring encounter Ordered: 03/07/2022 [facility] Work Phone: Comment on above: Ordered: 03/07/2022 End: 03-02-2023 Us abdominal real time w/image limited US ABD RT UPPER QUADRANT Radiology Routine Gallbladder mass 1 Occurrences starting 01/31/2022 until 03/02/2023 [facility] Work Phone: Comment on above: 1 Occurrences starti ng 01/31/2022 until 03/02/2023 US Heart [facility] End: 02-26-2023 US KIDNEY/BLADDER US KIDNEY/BLADDER Radiology Routine Renal cyst 1 Occurrences starting 01/27/2022 until 02/26/2023 [facility] Work Phone: Comment on above: 1 Occurrences starti ng 01/27/2022 until 02/26/2023 [facility] Immunizations Immunization Date Immunization Notes Care Provider Bennett dickinson 09-09-2020 zoster vaccine recombinant Sandy Braswell MD Work Phone: [facility] 05-03-2018 influenza, injectabl e, quadrivalent, contains preservative Sandy Braswell MD Work Phone: [facility] 05-03-2018 influenza virus vacc ine, unspecified formulation Sarika Stanford MA [facility] 04-02-2017 influenza, injectabl e, quadrivalent, contains preservative Sandy Braswell MD Work Phone: [facility] 10-02-2016 pneumococcal polysaccharide vaccine, 23 valent Sandy Braswell MD Work Phone: [facility] 05-28-2015 pneumococcal conjuga te vaccine, 13 valent Sandy Braswell MD Work Phone: [facility] 11-26-2013 zoster vaccine, live Sandy Braswell MD Work Phone: [facility] 11-15-2013 zoster vaccine, live Sandy Braswell MD Work Phone: [facility] 03-01-2013 influenza virus vacc ine, unspecified formulation Sandy Braswell MD Work Phone: [facility] 04-10-2012 influenza virus vacc ine, unspecified formulation Sandy Braswell MD Work Phone: [facility] 03-04-2010 tetanus toxoid, redu franco diphtheria toxoid, and acellular pertussis vaccine, adsorbed Sandy Braswell MD Work Phone: [facility] Work Phone: 03-01-2010 tetanus toxoid, redu franco diphtheria toxoid, and acellular pertussis vaccine, adsorbed Sadny Braswell MD Work Phone: [facility] 05-01-2008 influenza virus vacc ine, whole virus Sandy Braswell MD Work Phone: [facility] 01-26-2006 pneumococcal polysaccharide vaccine, 23 valent Sandy Braswell MD Work Phone: [facility] 06-01-2005 pneumococcal polysaccharide vaccine, 23 valent Sandy Braswell MD Work Phone: [facility] Work Phone: Payers Date Payer Category Payer Unknown [facility] [employer] O [id number] 2024-Present [phone] [address] [place] [address] O [id number] 2024 Unknown [id number] 2023 Self-pay 2023 Medicaid [id number] 2023 Medicare (Managed Care) [id number]. [id number] 2023 Medicare [id number] 2021 Private Health Insurance [employer] SUPPLEMENT [id number] 2021-Present [phone] [address] [place] [address] Indemnity [id number] 2021 Private Health Insurance [id number] 2010 Medicare [id number] 2010 Medicare MEDICARE MEDICAR E A AND B [id number] 2010-Present [phone] [address] [address] [place] [address] Medicare [id number] 2010 Medicare [id number]. [id number] Medicaid MEDICAID [id number] Medicare [id number] Medicare [id number] Medicare MEDICARE PART A B [id number] Unknown [id number]. 462 Unknown [id number] 2.840.1.276766.3.579.2. 462 Unknown [id number] 2.840.1.312554.3.579.2. 462 Unknown [id number] 2.840.1.315993.3.579.2. 462 Unknown [id number] 2.840.1.595898.3.579.2. 462 Unknown [id number] 2.840.1.986161.3.579.2. 462 Unknown [id number] 2.840.1.492383.3.579.2. 462 Unknown [id number] 2.840.1.491524.3.579.2. 462 Unknown [id number] 2.16.840.1.476090.3.579.2. 462 Unknown [id number] 2.16.840.1.445255.3.579.2. 462 Unknown [id number] 2.16.840.1.926160.3.579.2. 462 Unknown [id number] 2.16.840.1.079164.3.579.2. 462 Unknown [id number] 2.16.840.1.329325.3.579.2. 462 Unknown [id number] 2.16.840.1.882851.3.579.2. 462 Unknown [id number] 2.16.840.1.811832.3.579.2. 462 Unknown [id number] 2.16.840.1.836330.3.579.2. 462 Unknown [id number] 2.16840.1.977140.3.579.2. 462 Unknown [id number] 2.16.840.1.662399.3.579.2. 462 Unknown [id number] 2.16.840.1.174134.3.579.2. 462 Unknown [id number] 2.16840.1.953086.3.579.2. 462 Unknown [id number] 2.16840.1.807160.3.579.2. 462 Unknown [id number] 2.840.1.475382.3.579.2. 462 Unknown [id number] [id number]. 462 Social History Date Type Detail Facility Start: 07-18-2014 End: 08-03-2024 Tobacco smoking status NHIS Current every day smoker [facility] Work Phone: Start: 01-22-2024 History of tobacco use Cigarette Smoker [facility] Start: 07-18-2014 End: 11-08-2024 Cigarettes smoked current (pack per day) - Reported [facility] Start: 07-18-2014 End: 08-17-2024 Tobacco use and exposure Never used [facility] Start: 07-18-2014 End: 09-19-2024 Alcohol intake Current non-drinker of alcohol (finding) [facility] Start: 1950 Sex Assigned At Not on file [facility] Start: 01-23-2022 End: 09-14-2022 History SDOH Alcohol Frequency 2 [facility] Start: 01-23-2022 End: 09-14-2022 History SDOH Alcohol Std Drinks 1 [facility] Start: 01-23-2022 End: 09-14-2022 History SDOH Social Connections Phone 3 [facility] Start: 01-23-2022 End: 09-14-2022 History SDOH Social Connections Living 5 [facility] Start: 01-23-2022 End: 09-14-2022 History SDOH Physical Activity DPW 0 [facility] Start: 01-17-2022 End: 03-31-2022 Exposure to SARS-CoV-2 (event) Not sure [facility] Start: 04-29-2022 Tobacco Comment Down to about 1/2 a pack a day [facility] Start: 06-16-2022 End: 04-08-2023 Tobacco smoking status NHIS Unknown if ever smoked [facility] Start: 1950 Sex Assigned At Female [facility] Start: 09-13-2022 End: 11-08-2024 Social connection and isolation panel [facility] Do you belong to any clubs or organizations such as caodaism groups, unions, fraternal or athletic groups, or school groups? No [facility] Are you now , , , , never or living with a partner? [facility] How often to you hav e a drink containing alcohol? 2-4 times a month [facility] How many standard dr inks containing alcohol do you have on a typical day? 1 or 2 [facility] How often do you hav e 6 or more drinks on 1 occasion? Never [facility] How hard is it for y ou to pay for the very basics like food, housing, medical care, and heating Somewhat hard [facility] Do you feel stress - tense, restless, nervous, or anxious, or unable to sleep at night because your mind is troubled all the time - these days [OSQ] To some extent [facility] (I/We) worried rachel er (my/our) food would run out before (I/we) got money to buy more. Never true [facility] In the past 12 month s, has lack of transportation kept you from medical appointments or from getting medications? Yes [facility] Start: 06-02-2022 Gender identity Identifies as female gender (finding) [facility] Start: 06-02-2022 Sexual orientation Heterosexual (finding) [facility] How often to you hav e a drink containing alcohol? Monthly or less [facility] Do you feel stress - tense, restless, nervous, or anxious, or unable to sleep at night because your mind is troubled all the time - these days [OSQ] Only a little [facility] Start: 08-17-2024 End: 09-30-2024 Tobacco smoking status NHIS Ex-smoker [facility] Start: 01-22-2024 History of tobacco use Current smoker [facility] Start: 08-17-2024 Tobacco Comment Quit 01/22/2024 [facility] Start: 09-01-2024 Sex Female (finding) [facility] Start: 10-13-2024 End: 11-15-2024 Alcoholic beverage intake Current drinker of alcohol (finding) [facility] Medical Equipment Procedure Code Equipment Code Equipment Origin al Text Equipment Identifier Dates Lens Iol +20.5 D iop Acrsf Iq - [id number] Start: 01-09-2011 Comment on above: Description: [id number] 20.5D IMPLANTED OS [id number], [id number], [id number], [id number] Start: 07-04-2010 End: 10-13-2024 Comment on above: Test blood sugars fi ve times daily Test blood sugar 4 t imes daily. dx 250.00, insulin usage-yes Test blood sugar(s) 3 times daily. Dx: Type 1 DM - Uncontrolled E 10.65 Insulin: Yes once daily. Blood Sugar Diagnostic (Truetest Test Strips) strip Start: 03-14-2022 Insulin Syringe-Needle U-100 (Bd Insulin Syringe Ultra-Fine) 1 mL 30 gauge x 1/2" syringe Start: 03-14-2022 Blood Sugar Diagnostic (Truetest Test Strips) strip Start: 03-14-2022 Insulin Syringe-Needle U-100 (Bd Insulin Syringe Ultra-Fine) 1 mL 30 gauge x 1/2" syringe Start: 03-14-2022 Blood Sugar Diagnostic (Truetest Test Strips) strip Start: 03-14-2022 Insulin Syringe-Needle U-100 (Bd Insulin Syringe Ultra-Fine) 1 mL 30 gauge x 1/2" syringe Start: 03-14-2022 Blood Sugar Diagnostic (Truetest Test Strips) strip Start: 03-14-2022 Insulin Syringe-Needle U-100 (Bd Insulin Syringe Ultra-Fine) 1 mL 30 gauge x 1/2" syringe Start: 03-14-2022 Peripheral arter y endovascular stent-graft, drug-coated ()[id number] FDA Start: 10-21-2022 Drug-eluting peripheral artery stent, bare-metal ()[id number] FDA Start: 10-21-2022 Drug-eluting peripheral artery stent, bare-metal ()[id number] FDA Start: 10-21-2022 Blood Sugar Diagnostic (Truetest Test Strips) strip Start: 03-14-2022 Insulin Syringe-Needle U-100 (Bd Insulin Syringe Ultra-Fine) 1 mL 30 gauge x 1/2" syringe Start: 03-14-2022 Blood Sugar Diagnostic (Truetest Test Strips) strip Start: 03-14-2022 Insulin Syringe-Needle U-100 (Bd Insulin Syringe Ultra-Fine) 1 mL 30 gauge x 1/2" syringe Start: 03-14-2022 Blood Sugar Diagnostic (Truetest Test Strips) strip Start: 03-14-2022 Insulin Syringe-Needle U-100 (Bd Insulin Syringe Ultra-Fine) 1 mL 30 gauge x 1/2" syringe Start: 03-14-2022 Blood Sugar Diagnostic (Truetest Test Strips) strip Start: 03-14-2022 Insulin Syringe-Needle U-100 (Bd Insulin Syringe Ultra-Fine) 1 mL 30 gauge x 1/2" syringe Start: 03-14-2022 Blood Sugar Diagnostic (Truetest Test Strips) strip Start: 03-14-2022 Insulin Syringe-Needle U-100 (Bd Insulin Syringe Ultra-Fine) 1 mL 30 gauge x 1/2" syringe Start: 03-14-2022 Blood Sugar Diagnostic (Accu-Chek Guide Test Strips) strip Start: 08-15-2024 Blood Sugar Diagnostic (Truetest Test Strips) strip Start: 03-14-2022 Insulin Syringe-Needle U-100 (Bd Insulin Syringe Ultra-Fine) 0.3 mL 31 gauge x 5/16" syringe Start: 07-15-2023 Lancets (Accu-Ch ek Softclix Lancets) misc Start: 08-15-2024 Blood Sugar Diagnostic strip Start: 03-14-2022 End: 07-25-2022 Insulin Syringe-Needle U-100 (Bd Insulin Syringe Ultra-Fine) 1 mL 30 gauge x 1/2" syringe Start: 03-14-2022 End: 07-15-2023 Insulin Syringe-Needle U-100 (Bd Insulin Syringe Ultra-Fine) 1 mL 30 gauge x 1/2" syringe Start: 07-15-2023 End: 07-15-2023 Blood Sugar Diagnostic (Accu-Chek Guide Test Strips) strip Start: 08-15-2024 Blood Sugar Diagnostic (Truetest Test Strips) strip Start: 03-14-2022 Lancets (Accu-Ch ek Softclix Lancets) misc Start: 08-15-2024 Blood Sugar Diagnostic strip Start: 03-14-2022 End: 07-25-2022 Insulin Syringe-Needle U-100 (Bd Insulin Syringe Ultra-Fine) 0.3 mL 31 gauge x 5/16" syringe Start: 07-15-2023 End: 10-19-2024 Insulin Syringe-Needle U-100 (Bd Insulin Syringe Ultra-Fine) 1 mL 30 gauge x 1/2" syringe Start: 03-14-2022 End: 07-15-2023 Insulin Syringe-Needle U-100 (Bd Insulin Syringe Ultra-Fine) 1 mL 30 gauge x 1/2" syringe Start: 07-15-2023 End: 07-15-2023 Blood Sugar Diagnostic (Accu-Chek Guide Test Strips) strip Start: 08-15-2024 Blood Sugar Diagnostic (Truetest Test Strips) strip Start: 03-14-2022 Lancets (Accu-Ch ek Softclix Lancets) misc Start: 08-15-2024 Blood Sugar Diagnostic strip Start: 03-14-2022 End: 07-25-2022 Insulin Syringe-Needle U-100 (Bd Insulin Syringe Ultra-Fine) 0.3 mL 31 gauge x 5/16" syringe Start: 07-15-2023 End: 10-19-2024 Insulin Syringe-Needle U-100 (Bd Insulin Syringe Ultra-Fine) 1 mL 30 gauge x 1/2" syringe Start: 03-14-2022 End: 07-15-2023 Insulin Syringe-Needle U-100 (Bd Insulin Syringe Ultra-Fine) 1 mL 30 gauge x 1/2" syringe Start: 07-15-2023 End: 07-15-2023 Blood Sugar Diagnostic (Accu-Chek Guide Test Strips) strip Start: 08-15-2024 Blood Sugar Diagnostic (Truetest Test Strips) strip Start: 03-14-2022 Lancets (Accu-Ch ek Softclix Lancets) misc Start: 08-15-2024 Blood Sugar Diagnostic strip Start: 03-14-2022 End: 07-25-2022 Insulin Syringe-Needle U-100 (Bd Insulin Syringe Ultra-Fine) 0.3 mL 31 gauge x 5/16" syringe Start: 07-15-2023 End: 10-19-2024 Insulin Syringe-Needle U-100 (Bd Insulin Syringe Ultra-Fine) 1 mL 30 gauge x 1/2" syringe Start: 03-14-2022 End: 07-15-2023 Insulin Syringe-Needle U-100 (Bd Insulin Syringe Ultra-Fine) 1 mL 30 gauge x 1/2" syringe Start: 07-15-2023 End: 07-15-2023 Mesh Parietene D s [id number] X1 - [id number] Start: 11-01-2024 Blood Sugar Diagnostic (Accu-Chek Guide Test Strips) strip Start: 08-15-2024 Blood Sugar Diagnostic (Truetest Test Strips) strip Start: 03-14-2022 Lancets (Accu-Ch ek Softclix Lancets) misc Start: 08-15-2024 Blood Sugar Diagnostic strip Start: 03-14-2022 End: 07-25-2022 Insulin Syringe-Needle U-100 (Bd Insulin Syringe Ultra-Fine) 0.3 mL 31 gauge x 5/16" syringe Start: 07-15-2023 End: 10-19-2024 Insulin Syringe-Needle U-100 (Bd Insulin Syringe Ultra-Fine) 1 mL 30 gauge x 1/2" syringe Start: 03-14-2022 End: 07-15-2023 Insulin Syringe-Needle U-100 (Bd Insulin Syringe Ultra-Fine) 1 mL 30 gauge x 1/2" syringe Start: 07-15-2023 End: 07-15-2023 Functional Status Date Assessment Result Facility 07-03-2014 Are you deaf, or do you have serious difficulty hearing No 07/03/2014 4:32 PM Nina Kelley LPN No [facility] 07-03-2014 Are you blind, or do you have serious difficulty seeing, even when wearing glasses No 07/03/2014 4:32 PM Nina Kelley LPN No [facility] 07-03-2014 Do you have serious difficulty walking or climbing stairs No 07/03/2014 4:32 PM Nina Kelley LPN No [facility] 07-03-2014 Do you have difficul ty dressing or bathing No 07/03/2014 4:32 PM Nina Kelley LPN No [facility] 07-03-2014 Because of a physica l, mental, or emotional condition, do you have difficulty doing errands alone such as visiting a physician's office or shopping No 07/03/2014 4:32 PM Nina Kelley LPN No [facility] Mental Status Date Assessment Result Facility 10-25-2024 Cognitive function Awake;Alert;A ppropriate; Follows Commands [facility] Work Phone: 07-03-2014 Because of a physica l, mental, or emotional condition, do you have serious difficulty concentrating, remembering, or making decisions No 07/03/2014 4:32 PM Nina Kelley LPN No [facility] Clinical Notes 04-19-2012 to 12-20-2024 Telephone Encounter - Yolande Quiñonez RN - 12/20/2024 4:14 PM EDTTelephone Encounter - Yolande Quiñonez RN - 12/20/2024 4:14 PM Hannah Moore OD - 11/15/2024 10:16 AM EDT Note Date & Type Note Facility 12-20-2024 Telephone encounter Note Patient calls for tingling to bilateral hands and forearms. Nurse triage recommends see provider within 3 days. Appt offered within timeframe. Patient declined as she has to have an appointment after 4 pm d/t transportation and will need it set up for next week. Scheduled as patient requested. Red flag symptoms reviewed with patient with verbalized understanding. Reason for Disposition [1] Numbness or tingling in one or both hands AND [2] is a chronic symptom (recurrent or ongoing AND present > 4 weeks) Answer Assessment - Initial Assessment Questions 1. SYMPTOM:Patient calls to report bilateral hand/forearm tingling (like when something falls asleep) for the past month. 2. ONSET: A month ago started to this degree. 3. LAST NORMAL: Patient not really certain as it started awhile back but has gotten worse in the past month. 4. PATTERN: Intermittent but occurs frequently. 5. CARDIAC SYMPTOMS: No chest pain, difficulty breathing, palpitations. 6. NEUROLOGIC SYMPTOMS: No headache, dizziness, vision loss, double vision, changes in speech, unsteady on your feet. 7. OTHER SYMPTOMS: Denies any other symptoms. Reports that it is just an annoying feeling that won't go away. Protocols used: Neurologic [id number] [facility] 12-20-2024 Miscellaneous Notes Patient calls for tingling to bilateral hands and forearms. Nurse triage recommends see provider within 3 days. Appt offered within timeframe. Patient declined as she has to have an appointment after 4 pm d/t transportation and will need it set up for next week. Scheduled as patient requested. Red flag symptoms reviewed with patient with verbalized understanding. Reason for Disposition [1] Numbness or tingling in one or both hands AND [2] is a chronic symptom (recurrent or ongoing AND present > 4 weeks) Answer Assessment - Initial Assessment Questions 1. SYMPTOM:Patient calls to report bilateral hand/forearm tingling (like when something falls asleep) for the past month. 2. ONSET: A month ago started to this degree. 3. LAST NORMAL: Patient not really certain as it started awhile back but has gotten worse in the past month. 4. PATTERN: Intermittent but occurs frequently. 5. CARDIAC SYMPTOMS: No chest pain, difficulty breathing, palpitations. 6. NEUROLOGIC SYMPTOMS: No headache, dizziness, vision loss, double vision, changes in speech, unsteady on your feet. 7. OTHER SYMPTOMS: Denies any other symptoms. Reports that it is just an annoying feeling that won't go away. Protocols used: Neurologic [id number] documented in this encounter [facility] 12-12-2024 Telephone encounter Note Prescription Refill Information The patient has been identified by name and date of : Yes Caregiver verified no other encounters exist for this prescription request: Yes Caregiver confirmed with patient/requestor that no other refills are due, in the near future, with this provider at this time: Yes Does the patient have a future office visit with this provider/department: Yes Requested Prescriptions Pending Prescriptions Disp Refills rosuvastatin (CRESTOR) 40 mg tablet 90 tablet 3 Sig: Take 1 tablet by mouth once daily. traZODone (DESYREL) 50 mg tablet 90 tablet 0 Sig: Take 1 tablet by mouth at bedtime as needed. Nina Simons LPN December 12, 2024 1:31 PM [facility] 12-12-2024 Miscellaneous Notes Prescription Refill Information The patient has been identified by name and date of : Yes Caregiver verified no other encounters exist for this prescription request: Yes Caregiver confirmed with patient/requestor that no other refills are due, in the near future, with this provider at this time: Yes Does the patient have a future office visit with this provider/department: Yes Requested Prescriptions Pending Prescriptions Disp Refills rosuvastatin (CRESTOR) 40 mg tablet 90 tablet 3 Sig: Take 1 tablet by mouth once daily. traZODone (DESYREL) 50 mg tablet 90 tablet 0 Sig: Take 1 tablet by mouth at bedtime as needed. Nina Simons LPN December 12, 2024 1:31 PM documented in this encounter [facility] 11-21-2024 Telephone encounter Note The following approved medication requests have been transmitted electronically. Requested Prescriptions Signed Prescriptions Disp Refills nitroglycerin sublingual (NITROQUICK) 0.4 mg SL tablet 25 tablet 3 Sig: Dissolve 1 tablet under the tongue as needed. DISSOLVE ON TONGUE FOR CHEST PAIN. IF NO PAIN RELIEF, CALL 911 Authorizing Provider: RUMA VALLES gabapentin (NEURONTIN) 100 mg capsule 90 capsule 0 Sig: Take 1 capsule by mouth three times a day for 30 days. Authorizing Provider: RUMA VALLES APRN.CNP [facility] reviewed. Multiple prescribers. [facility] 11-21-2024 Miscellaneous Notes The following approved medication requests have been transmitted electronically. Requested Prescriptions Signed Prescriptions Disp Refills nitroglycerin sublingual (NITROQUICK) 0.4 mg SL tablet 25 tablet 3 Sig: Dissolve 1 tablet under the tongue as needed. DISSOLVE ON TONGUE FOR CHEST PAIN. IF NO PAIN RELIEF, CALL 911 Authorizing Provider: RUMA VALLES gabapentin (NEURONTIN) 100 mg capsule 90 capsule 0 Sig: Take 1 capsule by mouth three times a day for 30 days. Authorizing Provider: RUMA VALLES APRN.CNP [facility] reviewed. Multiple prescribers. Prescription Refill Information The patient has been identified by name and date of : Yes Caregiver verified no other encounters exist for this prescription request: Yes Caregiver confirmed with patient/requestor that no other refills are due, in the near future, with this provider at this time: Yes The last office visit in the department: 09/19/24 Does the patient have a future office visit with this provider/department: Yes, 02/27/25 Requested Prescriptions Pending Prescriptions Disp Refills nitroglycerin sublingual (NITROQUICK) 0.4 mg SL tablet 25 tablet 3 Sig: Dissolve 1 tablet under the tongue as needed. DISSOLVE ON TONGUE FOR CHEST PAIN. IF NO PAIN RELIEF, CALL 911 gabapentin (NEURONTIN) 100 mg capsule 90 capsule 1 Sig: Take 1 capsule by mouth three times a day for 30 days. Sunday Peng LPN November 21, 2024 11:51 AM documented in this encounter [facility] 11-21-2024 Telephone encounter Note Prescription Refill Information The patient has been identified by name and date of : Yes Caregiver verified no other encounters exist for this prescription request: Yes Caregiver confirmed with patient/requestor that no other refills are due, in the near future, with this provider at this time: Yes The last office visit in the department: 09/19/24 Does the patient have a future office visit with this provider/department: Yes, 02/27/25 Requested Prescriptions Pending Prescriptions Disp Refills nitroglycerin sublingual (NITROQUICK) 0.4 mg SL tablet 25 tablet 3 Sig: Dissolve 1 tablet under the tongue as needed. DISSOLVE ON TONGUE FOR CHEST PAIN. IF NO PAIN RELIEF, CALL 911 gabapentin (NEURONTIN) 100 mg capsule 90 capsule 1 Sig: Take 1 capsule by mouth three times a day for 30 days. Sunday Peng LPN November 21, 2024 11:51 AM [facility] 11-15-2024 Note Date of Procedure 11/15/2024. House Decorator Information Rework Machine Operator: BP. Start time: 9:48 AM. Stop time: 9:49 AM. OCT Macula Interpretation Right Eye Normal without fluid. Findings include Atrophy; Negative for Cystoid macular edema. Left Eye Normal without fluid. Findings include Atrophy; Negative for Cystoid macular edema. Interval Change Right Eye Stable. Left Eye Stable. [facility] 11-15-2024 Note HNO ID: [id number] Author: HANNAH RIVERA OD Service: ? Author Type: SECURITY DOOR INSTALLER Type: Progress Notes Filed: 11/15/2024 10:19 Note Text: 1. 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 Pseudophakia Finalized spec rx 3. Punctate keratitis, bilateral Well-controlled Follow-up with Dr. Montalvo in 4 months (lost to follow-up due to heart surgery) and then me after to monitor if ok'ed per Dr. Selvin Rivera, OD November 15, 2024 10:16 AM [facility] 11-15-2024 History of Present illness Narrative 1. 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 Pseudophakia Finalized spec rx 3. Punctate keratitis, bilateral Well-controlled Follow-up with Dr. Montalvo in 4 months (lost to follow-up due to heart surgery) and then me after to monitor if ok'ed per Dr. Selvin Rivera, OD November 15, 2024 10:16 AM documented in this encounter [facility] 11-08-2024 History of Present illness Narrative Images from the original note were not included. SUBJECTIVE: Zoraida Pires presents for follow up of her upper abdominal incisional hernia repair WITH mesh. On 11/01/24 she underwent a hernia repair, tolerated the procedure well and was discharged home. Patient complaints: pain -requesting more pain meds -only taking as needed -using laxative to keep bowels moving She denies drainage, redness around wound, difficulty voiding, and constipation. OBJECTIVE: BP 124/72 Pulse 64 Temp 36.3 C (97.3 F) SpO2 98% General Appearance: Well developed, No acute distress Abdomen: Abdomen soft, non-distended. Incision: no drainage, no erythema, no swelling, moderate ecchymosis, and mild tenderness, steri strips still intact Participation of a fellow, resident, medical student, or advanced practice provider student in performing the sensitive examination was discussed with the patient or authorized underwriting sales representative. The patient or authorized underwriting sales representative has agreed to proceed with the sensitive examination. Transition Nurse present: Charisma Hargrove RN IMPRESSION: Post op course: Normal PLAN: Post-op patient instructions were reviewed with the patient. I have explained to Ms. Pires that she may return to normal activity with the following restrictions: No heavy lifting, pushing, or pulling greater than 20 lbs for 8 weeks post-operatively. I have encouraged her to contact me at any time with any questions or concerns that may arise. Follow up: LUANNE Jean APRN.FELA documented in this encounter [facility] 11-08-2024 Note HNO ID: [id number] Author: RACHEL JEAN APRN.CNP Service: ? Author Type: Nurse Practitioner Type: Progress Notes Filed: 11/08/2024 12:29 Note Text: SUBJECTIVE: Zoraida Pires presents for follow up of her upper abdominal incisional hernia repair WITH mesh. On 11/01/24 she underwent a hernia repair, tolerated the procedure well and was discharged home. Patient complaints: pain -requesting more pain meds -only taking as needed -using laxative to keep bowels moving She denies drainage, redness around wound, difficulty voiding, and constipation. OBJECTIVE: BP 124/72 Pulse 64 Temp 36.3 ?C (97.3 ?F) SpO2 98% General Appearance: Well developed, No acute distress Abdomen: Abdomen soft, non-distended. Incision: no drainage, no erythema, no swelling, moderate ecchymosis, and mild tenderness, steri strips still intact Participation of a fellow, resident, medical student, or advanced practice provider student in performing the sensitive examination was discussed with the patient or authorized underwriting sales representative. The patient or authorized underwriting sales representative has agreed to proceed with the sensitive examination. Transition Nurse present: Charisma Hargrove RN IMPRESSION: Post op course: Normal PLAN: Post-op patient instructions were reviewed with the patient. I have explained to Ms. Pires that she may return to normal activity with the following restrictions: No heavy lifting, pushing, or pulling greater than 20 lbs for 8 weeks post-operatively. I have encouraged her to contact me at any time with any questions or concerns that may arise. Follow up: LUANNE Jean APRN.ADVANCED CLINICAL SPECIALIST [facility] 11-07-2024 Telephone encounter Note Images from the original note were not included. Adriel Solis MD You; [facility] [place] days ago She can see Rachel or follow-up with me a week later. If the abdominal binder helps her feel more support she can wear it if it does not seem to matter she does not need to wear it. Called patient. Verified name and date of . Patient informed and verbalizes understanding. Transferred to scheduling. Claudine Thao LPN [facility] 11-07-2024 Miscellaneous Notes Images from the original note were not included. Adriel Solis MD You; [facility] [place] days ago She can see Rachel or follow-up with me a week later. If the abdominal binder helps her feel more support she can wear it if it does not seem to matter she does not need to wear it. Called patient. Verified name and date of . Patient informed and verbalizes understanding. Transferred to scheduling. Claudine Thao LPN Patient called. Verified name and date of . Patient would like to know how long to wear binder for? States it does help her and advised her to wear it for a minimum of a week, longer if it helps. She is concerned about follow up appointment and aware that once we hear from provider we will let her know but she does not want to leave [place] for appointment. Claudine Thao LPN Patient called to schedule 1 week post op appointment with Dr. Solis per his instructions. The provider has no availability in [facility] [place] for the week of 11/07/24. Patient unwilling to travel to other facilities with availability. Please contact patient to advise on plan of care. documented in this encounter [facility] 11-04-2024 Telephone encounter Note Patient called. Verified name and date of . Patient would like to know how long to wear binder for? States it does help her and advised her to wear it for a minimum of a week, longer if it helps. She is concerned about follow up appointment and aware that once we hear from provider we will let her know but she does not want to leave [place] for appointment. Claudine Thao LPN [facility] 11-04-2024 Telephone encounter Note Patient called to schedule 1 week post op appointment with Dr. Solis per his instructions. The provider has no availability in [facility] [place] for the week of 11/07/24. Patient unwilling to travel to other facilities with availability. Please contact patient to advise on plan of care. [facility] 11-01-2024 Note HNO ID: [id number] Author: ?, ?, ? Service: Pharmacy Author Type: ? Type: Plan of Care Filed: 11/01/2024 12:43 Note Text: PHARMACY BEDSIDE DELIVERY SERVICE Patient Name: Zoraida Pires The marked outpatient medications were Filled at: [facility] and delivered to the patient's bedside to pharm p/u Medication List START taking these medications oxyCODONE-acetaminophen 5-325 mg tablet Commonly known as: PERCOCET Take 1 tablet by mouth four times a day as needed for pain for up to 5 days. FOR PAIN. X CONTINUE taking these medications 20/20 ARTIFICIAL TEARS OPHTHALMIC albuterol HFA 90 mcg/actuation inhaler Commonly known as: VENTOLIN HFA Inhale 2 Puffs as instructed every 4 hours as needed for wheezing/shortness of breath. aspirin, enteric coated 81 mg EC tablet Commonly known as: ASPIRIN, ENTERIC COATED B-COMPLEX Tab Generic drug: vitamin b complex Biotin 10,000 mcg Cap blood sugar diagnostic test strip carvedilol 3.125 mg tablet Commonly known as: COREG citalopram 40 mg tablet Commonly known as: CeleXA Take 1 tablet by mouth once daily. COQ10 SG 100 ORAL gabapentin 100 mg capsule Commonly known as: NEURONTIN Take 1 capsule by mouth three times a day for 30 days. HYDROcodone-Acetaminophen 10-325 mg per tablet Commonly known as: NORCO IRON BISGLYCINATE CHELATE ORAL levothyroxine 75 mcg tablet Commonly known as: SYNTHROID lisinopril 20 mg tablet Commonly known as: ZESTRIL MAGNESIUM GLYCINATE ORAL melatonin 12 mg Tab nitroglycerin sublingual 0.4 mg SL tablet Commonly known as: NITROQUICK Dissolve 1 tablet under the tongue as needed. DISSOLVE ON TONGUE FOR CHEST PAIN. IF NO PAIN RELIEF, CALL [address] 40 mg tablet Commonly known as: PROTONIX Take 1 tablet by mouth once daily. rosuvastatin 40 mg tablet Commonly known as: CRESTOR Take 1 tablet by mouth once daily. Selenium 100 mcg Tab SYSTANE ULTRA 0.4-0.3 % ophthalmic solution Generic drug: PEG 400-propylene glycol Use 1 Drop in both eyes every 2 hours while awake. traZODone 50 mg tablet Commonly known as: DESYREL Take 1 tablet by mouth at bedtime as needed. VITAMIN C 1,000 mg tablet Generic drug: Ascorbic Acid VITAMIN D3 ORAL VITAMIN K2 100 MCG CAPSULE ZINC PICOLINATE ORAL You might also be taking other medications not listed above. If you have questions about any of your other medications, talk to the person who prescribed them or your Primary Care Provider. Harriet Kimballith PAGER: [phone] November 01, 2024 12:42 PM [facility] 11-01-2024 Note HNO ID: [id number] Author: HANNAH EARLY APRN.JR. JAVA DEVELOPER Service: Anesthesiology Author Type: Nurse Bin Filler Type: Anesthesia Procedure Notes Filed: 11/01/2024 08:52 Note Text: ANESTHESIOLOGY PROCEDURE NOTE PIV General Information Procedure Start Time/Medication Administration: 11/01/2024 7:48 AM Procedure End Time: 11/01/2024 7:48 AM Patient Location: OR Staffing JR. JAVA DEVELOPER: Hannah Early APRN.JR. JAVA DEVELOPER Performed by: LE Preparation Sterility Preparation: hand hygiene performed prior to procedure, surgical cap used, mask used, skin prep agent completely dried prior to procedure Site Prep: alcohol Procedure Details Indication: need for IV access Needle Size/Type: 20 gauge angiocath Orientation: Right Location: Wrist Imaging Guidance Used: No SIGNATURE: Hannah Early APRN.JR. JAVA DEVELOPER PATIENT NAME: Zoraida Pires DATE: November 01, 2024 TIME: 8:52 AM CSN: [id number] [facility] 10-20-2024 Telephone encounter Note Phoned patient and she stated that she will try to come in tomorrow Thursday10/21/24 for labs if not she will be in early next week. Renay Zavala LPN [facility] 10-20-2024 Miscellaneous Notes Phoned patient and she stated that she will try to come in tomorrow Thursday10/21/24 for labs if not she will be in early next week. Renay Zavala LPN Call pt and notify, she needs to complete labs ALYSSA. Called and spoke with patient. She will recheck labs early next week. Irasema eRy LPN Images from the original note were not included. Notify pt her potassium level was elevated 5.4, lets recheck beginning of next week on Thursday if she can make that work. Try to avoid potassium rich foods documented in this encounter [facility] 10-20-2024 Telephone encounter Note Call pt and notify, she needs to complete labs ALYSSA. [facility] 10-14-2024 Telephone encounter Note Pt notified of the same. She states Dr. Palumbo's office called and set it up for her. She has an appt at the end of the month. Sunday Peng LPN [facility] 10-14-2024 Miscellaneous Notes Pt notified of the same. She states Dr. Palumbo's office called and set it up for her. She has an appt at the end of the month. Sunday Peng LPN LM to return call to office. Sunday Peng LPN That is fine. Can please make sure that diabetic provider at [place] has bone scan results. Unfortunately, we don't set it up there. I would suggest that she call her provider there to inquire about it. Pt called and is notified of providers message and instructions. Pt states he Diabetic provider got a hold of her bone scan and gave her a couple of options, and she wanted to do the yearly infusion. She states she hasn't heard anything back. She wanted to know if provider could get a hold of Itzel Dominguez NP with [facility] about that so she could get it set up. Please call and advise. Treva De Anda, RN Can please let patient know that we did hear back from Dr. Hollis and he has no reservations for her starting fosamax for the osteoporosis. Please let me know if she would like to move forward with this and we can send into the pharmacy. Flaca Fischer APRN.ADVANCED CLINICAL SPECIALIST Received response from Dr. Hollis's office via fax. "No issues". Sunday Peng LPN Faxed OV note with note asking the same. Can we fax message over to Dr. Tam's offce again asking if he has any reservations re: treatment with fosamax. Only received last office note from Nephrology. Scan on 09/23/2024 11:56 AM by Danielle Ford: Citizen Of [place] [facility] OV note faxed, waiting response from Dr. Hollis's office. Waiting for response. Sunday Peng LPN OV note faxed, waiting response from Dr. Palumbo's office. Sunday Peng LPN Can we please sent copy of today's office notes to patient's marketing proposal specialist with question if he has any reservations re: starting fosamax. documented in this encounter [facility] 10-14-2024 Telephone encounter Note Called and spoke with patient. She will recheck labs early next week. Irasema Rey LPN [facility] 10-14-2024 Telephone encounter Note Images from the original note were not included. Notify pt her potassium level was elevated 5.4, lets recheck beginning of next week on Thursday if she can make that work. Try to avoid potassium rich foods [facility] 10-13-2024 History and physical note Images from the original note were not included. 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 Denies CP, palpitations, sob, new or worsening cardiac symptoms Scan on 10/13/2024 10:27 AM by ProviderAshley, PA-C: Consultation - Cardiology HTN (hypertension) Assessment: controlled on rx Last 14 BP Last 14 Encounter BP Readings: Date: BP: 10/13/2024 126/56 09/28/2024 126/63 09/19/2024 116/54 08/17/2024 135/66 08/03/2024 104/50 12/14/2023 132/52 01/20/2023 110/60 09/19/2022 122/58 09/02/2022 128/58 07/14/2022 122/70 04/29/2022 153/81[pt stated she did not take meds yet today[ 03/07/2022 124/60 02/27/2022 130/62 01/27/2022 120/48 Hyperlipidemia Assessment: c/w statin Bilateral carotid artery stenosis Assessment: 12/2023 Carotid US in C/E revealed <50% bilaterally Report on 01/05/2024 2:39 PM EDT: Vascular US carotid artery duplex bilateral Chronic obstructive lung disease (HCC) Assessment: controlled with rx as needed, no spirometry on file, lungs CTA, pulse ox 97% on RA, recent low dose lung screening CT below View External Imaging - CT Scan [ID [id number]] Obstructive sleep apnea Assessment: non-compliant with CPAP Former smoker Assessment: 1ppd/50 years Gastroesophageal reflux disease without esophagitis Assessment: controlled on rx Stage 3 chronic kidney disease (HCC) Assessment: hx MELINDA, following CABG that required dialysis short term Creatinine Date Value Ref Range Status 01/20/2023 1.08 (H) 0.58 - 0.96 mg/dL Final 06/13/2022 0.90 0.58 - 0.96 mg/dL Final 01/27/2022 1.03 (H) 0.58 - 0.96 mg/dL Final 06/29/2014 0.94 0.70 - 1.40 mg/dL Final Hypothyroid Assessment: stable on rx Osteoporosis Assessment: pending to receive Reclast Depression Assessment: stable on rx per pt Generalized anxiety disorder Assessment: stable on rx per pt VHD (valvular heart disease) Assessment: echo 01/12/2024 in C/E, AVR 1-2+, Mild stenosis of the aortic valve. AV mean gradient is 9 mmHg. AV area by continuity VTI is 1.9 cm2. Following cardiology ANESTHESIA FINDINGS: Intubation History: No history of difficult intubation Significant Anesthesia Considerations: none Airway History: No history of difficult airway Leonard Activity Status Index: METS: Climb a flight of stairs or walk up a hill (5.50 METs) DASI Score: 5.5 Patient denies any chest pain or undue shortness of breath with the above physical activity. Clinical Frailty Scale: 4. Apparently vulnerable STOP-Bang Score: Snores loudly Has been observed to stop breathing or choking/gasping during sleep Has or is being treated for high blood pressure Patient over 50 years old Denies feeling tired, fatigued, or sleepy during the daytime BMI less than or equal to 35 kg/m^2 Does not have a large neck Non-male patient STOP-Bang Score: 4 [id number] Score: Age: 65-74 Sex: female CHF history: No Hypertension history: Yes Stroke/TIA/thromboembolism history: No Vascular disease history: Yes Diabetes history: Yes [id number] Score: 5 ARISCAT Score: Age: 51-80 Preoperative SpO2: >=96% Respiratory infection in the last month: No Preoperative anemia: No Surgical incision: upper abdominal Duration of surgery: 2-3 hrs Emergency procedure: No ARISCAT Score: 34 I - PHYSICAL EVALUATION AIRWAY Patient intubated: No. Tracheostomy tube not present Mallampati: III. TM distance: >3 FB. Neck ROM: full ROM without neurological symptoms. Mouth opening: adequate. Short neck: no. Thick neck: no Brody present: no Lip Bite Test: I Microretrognathia/Micronagthia/Re cessed Chin: No DENTAL Dental findings: teeth intact. Additional comments: +crown/back. II - ANESTHESIA PLAN Anesthetic Plan: other Beta Anmol Monitoring Plan Post Procedure Analgesic Plan Prepared for Surgery: optimally prepared for surgery, pending [see comment]. Labs and ekg CONSULTS: Patient does not require consults for optimization at this time Planned Anesthetic: other anesthesia choice The Following Tests/Procedures Have Been Initiated: Orders Placed This Encounter >BMP Standing Status: Future Number of Occurrences: 1 Expected Date: 10/13/2024 Expiration Date: 01/12/2025 >CBC + AUTO DIFF Standing Status: Future Number of Occurrences: 1 Expected Date: 10/13/2024 Expiration Date: 01/12/2025 ECG COMPLETE Order Comments: Ordered by an unspecified provider ECG COMPLETE Standing Status: Future Expiration Date: 10/13/2025 REASON FOR VISIT: Zoraida Pires is a 73 year old female who is scheduled for Procedure(s): LAPAROSCOPIC HERNIA REPAIR INCISIONAL INITIAL REDUCIBLE W/MESH 3cm-10cm (N/A) at the request of Dr. Solis, Adriel Falcon MD for consultation. My final recommendation will be communicated back to the requesting physician by way of shared medical record or letter. Subjective The patient has the following: COVID-19 Immunization Status Completed or No Longer Recommended Covid-19 Vaccine Discontinued 01/27/2022 Frequency changed to Never by Meg Esposito MA (Patient Preference) CHIEF COMPLAINT: Pre-op exam HPI: Zoraida Pires is a 73 year old seen for PAC due to scheduled above surgery because of an incisional hernia. 09/28/2024, Dr. Solis Meeta is a 73-year-old female with a history of DM, hypothyroidism, and recent cardiac surgery, presenting for preoperative evaluation and management of her insulin pump prior to an upcoming hernia repair surgery. Meeta has been using a continuous insulin pump for glycemic control, which has resulted in a recent HbA1c of 6.8. She checks her blood glucose levels four times daily. She is unsure how to adjust the pump settings and will need guidance from her timber girdler to reduce it to basal rate before surgery. She inquires about the expected duration of the hernia repair surgery, which is estimated to be approximately 2 hours. She is also taking Synthroid and was advised to take it on an empty stomach. She has a history of recent cardiac surgery and inquires about the presence of chest tube sites, noting three areas on her chest. She is not on any anticoagulants other than aspirin and is advised to continue her regular medications, including aspirin, with a sip of water on the morning of surgery. She is flexible with the surgery date and prefers it to be scheduled as soon as possible, ideally before her birthday on [birth year]. She mentions that her brother will be available to watch her dog during her recovery period. She also plans to have a colonoscopy approximately 8 weeks after the hernia repair surgery. At her last office visit on August 17, 2024 I noted: Meeta is a 73-year-old female with a history of diabetes mellitus, PVD, and CAD, presenting with a bulge and discomfort at a prior transverse RUQ incision site. Meeta reports a bulge and discomfort along the medial aspect of a prior transverse RUQ incision, with exacerbation during lifting and coughing. She was initially evaluated 2 years ago for similar complaints, at which time a CT scan was discussed. She notes that the hernia appears to be enlarging. She has a history of diabetes mellitus, for which she is currently taking 27 units of Tresiba daily and Fiasp as needed. She reports that her blood glucose levels are "out of whack" and is preparing to start using an insulin pump. She also has a history of PVD and underwent bilateral peripheral stent placements approximately 2 years ago. She is a current smoker, consuming half a pack of cigarettes per day, but is attempting to quit. Meeta has a history of CAD and experienced worsening angina in November of last year. She underwent a cardiac catheterization, which revealed a 70% LAD lesion, an 80% circumflex lesion, and a totally occluded RCA. She subsequently underwent revascularization surgery in December of last year at [facility]. Her postoperative course was complicated by renal failure, requiring dialysis. She reports that her renal function has since improved, with recent blood work in June showing good results. She is scheduled for a follow-up appointment with her marketing proposal specialist next month. She denies any current chest pain or discomfort and was last seen by her hatch tender in June, who reportedly found no issues. She is currently taking aspirin and Coreg. She also has a history of a ruptured appendix, for which she has a large scar. She denies any sensation of a lower abdominal hernia. The patient is being seen by me at the request of Dr. Sandy Braswell MD for my opinion and advice regarding incisional hernia increasing in size. Since her last visit, she is seeing her timber girdler and is now on an insulin pump. Her blood sugars and hemoglobin A1c see under much better control. She was given recommendations for adjusting her insulin pump in the perioperative phase. She was also seen by the [place] [place] [facility]. Their consultation felt that she was appropriate to proceed with surgery from a cardiac standpoint. REVIEW OF SYSTEMS: General: No weight loss, malaise or fevers. Neurological: No history of TIA's, stroke, BANQUET SUPERVISOR tumor, impaired sensorium, hemiplegia, paraplegia or quadraplegia. No neurological symptoms or problems. Respiratory: +former smoker Positive for: COPD, obstructive sleep apnea and CPAP/BiPAP noncompliant. Negative for: asthma, current cough, dyspnea, pneumonia within 6 weeks, tobacco use and URI < 2 weeks. Cardiovascular: +carotid artery stenosis, under surveillance Positive for: anticoagulation therapy (ASA), atrial fibrillation (remote hx post-op), CAD, hyperlipidemia, hypertension, murmur/valvular heart disease and open heart surgery Patient's last office visit with hatch tender, SUSAN, The following tests and/or procedures were performed: cardiac stents. Negative for: abdominal aortic aneurysm, AICD/PPM, angina, arrhythmia, chest pain, CHF, congenital heart defect, DVT/PE and recent HI. GI: See HPI. Positive for: GERD (on rx) Negative for: abdominal pain, dysphagia, hepatitis, irritable bowel syndrome, inflammatory bowel disease, liver disease, nausea, pancreatitis, vomiting and ETOH >2 drinks/day. : Positive for: renal failure (hx MELINDA, required short term dialysis following CABG, resolved). Patient's renal failure is chronic. Negative for: urinary incontinence, nephrolithiasis and urinary tract infection. 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 Endocrine: Positive for: diabetes mellitus and hypothyroidism (on rx). Patient's diabetes mellitus is controlled by insulin. Hematology: Positive for: anemia, iron deficiency anemia (on rx) and chronic anti-coagulation/platelet meds. Patient is on anti-coagulation/platelet medication(s): Aspirin. Negative for: bruises/bleeds easily and transfusion of at least 4 units within 72 hours prior to surgery. Oncology: No history of CA metastasis, chemo within 30 days, or radiotherapy within 90 days. No history of oncological symptoms or problems. Psych: Positive for: anxiety and depression (on rx). Musculoskeletal: +osteoporosis, pending Reclast infusion Positive for: back pain (rx as needed). Skin: Negative for lesions, rash and itching. 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 Laser Treatments Both Eyes (Ongoing) PERC TRANSL COR ANGIO Percutaneous Transluminal Coronary Angio Status POST-CATARACT LASER SURGERY Right 11/11/2023 Dr. Christensen REMV CATARACT EXTRACAP,INSERT LENS Bilateral RMVL LENS MATERIAL PHACOFRAGMENTATION ASPIR os 01/09/2011 Cataract Extraction STENT PLACEMENT 06/01/1995 with HI VITRECTOMY MECHANICAL PARS PLANA os 01/09/2011 [place] Vitrectomy WRIST SPLINT carpal tunnel on R FAMILY HISTORY Problem Relation Age of Onset Lipids Mother Allergies Mother Arthritis Mother Breast Cancer Mother Cancer Mother stomach COPD Mother Hypertension Mother Thyroid Mother Psychiatry Mother depression Cataract Mother Diabetes Father Prostate Lipids Father Allergies Father Cancer Father stomach Prostate Cancer Father Hypertension Father Stroke Father Thyroid Sister Allergies Sister Cervical Cancer Sister Hypertension Brother Allergies Brother Diabetes Maternal Uncle Social History Tobacco Use Smoking status: Former Average packs/day: 1 pack/day for 20.0 years (20.0 ttl pk-yrs) Types: Cigarettes Start date: 01/22/2024 Smokeless tobacco: Never Tobacco comments: Quit 01/22/2024 Vaping Use Vaping status: Never Used Substance Use Topics Alcohol use: Yes Alcohol/week: 1.0 standard drink of alcohol Types: 1 Cans of beer per week Drug use: No Prior to Admission medications as of 10/13/24 1019 Medication Sig Last Dose Taking traZODone (DESYREL) 50 mg tablet Take 1 tablet by mouth at bedtime as needed. Yes gabapentin (NEURONTIN) 100 mg capsule Take 1 capsule by mouth three times a day for 30 days. Yes lisinopril (ZESTRIL) 20 mg tablet Take 20 mg by mouth once daily. Yes aspirin, enteric coated (ASPIRIN, ENTERIC COATED) 81 mg EC tablet Take 1 tablet by mouth once daily. Yes carvedilol (COREG) 3.125 mg tablet Take 3.125 mg by mouth two times a day with meals. Yes levothyroxine (SYNTHROID) 75 mcg tablet Take 1 tablet by mouth every afternoon. Yes HYDROcodone-Acetaminophen (NORCO) 10-325 mg per tablet Take 1 tablet by mouth every 12 hours. Yes ZINC PICOLINATE ORAL Take 50 mg by mouth once daily. Yes ferrous bis-glycinate chelate (IRON BISGLYCINATE CHELATE ORAL) Take 18 mg by mouth once daily. Yes MAGNESIUM GLYCINATE ORAL Take 500 mg by mouth once daily. Yes Ascorbic Acid (VITAMIN C) 1,000 mg tablet Take 1,000 mg by mouth once daily. Yes Selenium 100 mcg tab Take 100 mcg by mouth once daily. Yes cholecalciferol, vitamin D3, (VITAMIN D3 ORAL) Take 250 mcg by mouth once daily. Yes Biotin 10,000 mcg cap Take 10,000 mcg by mouth once daily. Yes melatonin 12 mg tab Take 12 mg by mouth daily at bedtime. Yes vitamin b complex (B-COMPLEX) tab Take 1 tablet by mouth once daily. Yes VITAMIN K2 100 MCG CAPSULE Yes ubidecarenone/vitamin E mixed (COQ10 SG 100 ORAL) Take 100 mg by mouth once daily. Yes rosuvastatin (CRESTOR) 40 mg tablet Take 1 tablet by mouth once daily. Yes nitroglycerin sublingual (NITROQUICK) 0.4 mg SL tablet Dissolve 1 tablet under the tongue as needed. DISSOLVE ON TONGUE FOR CHEST PAIN. IF NO PAIN RELIEF, CALL 911 Yes citalopram (CELEXA) 40 mg tablet Take 1 tablet by mouth once daily. Yes pantoprazole DR (PROTONIX) 40 mg tablet Take 1 tablet by mouth once daily. Yes albuterol HFA (VENTOLIN HFA) 90 mcg/actuation inhaler Inhale 2 Puffs as instructed every 4 hours as needed for wheezing/shortness of breath. Yes PEG 400-propylene glycol (SYSTANE ULTRA) 0.4-0.3 % ophthalmic solution Use 1 Drop in both eyes every 2 hours while awake. Yes POLYVINYL ALCOHOL (20/20 ARTIFICIAL TEARS OPHTHALMIC) Use in eyes as needed. Yes blood sugar diagnostic test strip Test blood sugars five times daily Yes Medication Comments documented by Kim Young COT on 01/14/2011 at 1129. 2 gtt credit manager os bid and pink cap is qid, not sure of med names, pt didn't bring bottles ALLERGIES No Known Allergies Objective PHYSICAL EXAM: General: alert and oriented (x3) and healthy appearance. Pertinent negatives noted - not distressed. Skin: normal color, no rash or lesions. HEENT: EOM intact, pupils equal round and carotid bruit. Carotid bruit; laterality bilateral. Cardiovascular: Pulse characterized as regular.Positive for murmur. Pertinent negatives noted - no rub and no gallop. Respiratory: normal breath sounds, no wheezes or crackles. No chest wall deformity or tenderness. Abdomen: soft. Pertinent negatives noted - not tender. Extremities: no deformity, no edema or tenderness, no joint swelling or clubbing. Neurological: normal cognition and motor skills. Gait normal. No weakness or sensory deficit. PAIN ASSESSMENT: VITALS: BP 126/56 Pulse 71 Temp (Src) 97.2 (Temporal) Resp 12 Ht 5' 0" (1.52m) Wt 129 lb 12.8 oz (58.9kg) SpO2 97% BMI 25.35 kg/(m^2). Diagnostic tests reviewed for today's visit: Lab Value Units Date High Low HB No results within date range. HCT No results within date range. WBC No results within date range. PLT No results within date range. NA No results within date range. K No results within date range. GLUC No results within date range. BUN No results within date range. CREAT No results within date range. PTSEC No results within date range. INR No results within date range. APTT No results within date range. ALT No results within date range. AST No results within date range. TBILI No results within date range. TSH No results within date range. Lab Value Units Date High Low HCGQT No results within date range. UHCG No results within date range. HCG, BODY* No results within date range. Lab Value Units Date High Low ABORHD No results within date range. ABSCREEN No results within date range. Hemoglobin A1C Date Value 06/13/2024 7.4 09/15/2022 7.1 11/13/2021 7.7 06/29/2014 8.5 % 12/19/2013 8.5 % 05/31/2013 8.3 % 12/09/2012 7.9 % 08/28/2012 8.2 % Recent Results (from the past 8760 hours) ECG COMPLETE Collection Time: 10/13/24 10:31 AM Result Value Ventricular Rate 54 Atrial Rate 54 P-R Interval 142 QRS Duration 92 QT Interval 478 QTC Calculation (Bazett) 453 Calculated P Greenfield -11 Calculated R Green[place] 33 Calculated T [place] 38 Impression SINUS BRADYCARDIA INFERIOR MYOCARDIAL INFARCTION , AGE UNDETERMINED ABNORMAL ECG No results found for this or any previous visit (from the past 35140 hours). Instructions Given to Patient: Instructions located in the after visit summary. Patient given verbal and written preop instructions and voices comprehension and compliance. SIGNATURE: Angi Martin APRN.CNP PATIENT NAME: Zoraida Pires DATE: October 13, 2024 TIME: 10:16 AM PAGER/CONTACT #: [facility] 10-13-2024 History and physical note Images from the original note were not included. 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 Denies CP, palpitations, sob, new or worsening cardiac symptoms Scan on 10/13/2024 10:27 AM by Provider, External, PA-C: Consultation - Cardiology HTN (hypertension) Assessment: controlled on rx Last 14 BP Last 14 Encounter BP Readings: Date: BP: 10/13/2024 126/56 09/28/2024 126/63 09/19/2024 116/54 08/17/2024 135/66 08/03/2024 104/50 12/14/2023 132/52 01/20/2023 110/60 09/19/2022 122/58 09/02/2022 128/58 07/14/2022 122/70 04/29/2022 153/81[pt stated she did not take meds yet today[ 03/07/2022 124/60 02/27/2022 130/62 01/27/2022 120/48 Hyperlipidemia Assessment: c/w statin Bilateral carotid artery stenosis Assessment: 12/2023 Carotid US in C/E revealed <50% bilaterally Report on 01/05/2024 2:39 PM EDT: Vascular US carotid artery duplex bilateral Chronic obstructive lung disease (HCC) Assessment: controlled with rx as needed, no spirometry on file, lungs CTA, pulse ox 97% on RA, recent low dose lung screening CT below View External Imaging - CT Scan [ID [id number]] Obstructive sleep apnea Assessment: non-compliant with CPAP Former smoker Assessment: 1ppd/52 years Gastroesophageal reflux disease without esophagitis Assessment: controlled on rx Stage 3 chronic kidney disease (HCC) Assessment: hx MELINDA, following CABG that required dialysis short term Creatinine Date Value Ref Range Status 01/20/2023 1.08 (H) 0.58 - 0.96 mg/dL Final 06/13/2022 0.90 0.58 - 0.96 mg/dL Final 01/27/2022 1.03 (H) 0.58 - 0.96 mg/dL Final 06/29/2014 0.94 0.70 - 1.40 mg/dL Final Hypothyroid Assessment: stable on rx Osteoporosis Assessment: pending to receive Reclast Depression Assessment: stable on rx per pt Generalized anxiety disorder Assessment: stable on rx per pt VHD (valvular heart disease) Assessment: echo 01/12/2024 in C/E, AVR 1-2+, Mild stenosis of the aortic valve. AV mean gradient is 9 mmHg. AV area by continuity VTI is 1.9 cm2. Following cardiology ANESTHESIA FINDINGS: Intubation History: No history of difficult intubation Significant Anesthesia Considerations: none Airway History: No history of difficult airway Leonard Activity Status Index: METS: Climb a flight of stairs or walk up a hill (5.50 METs) DASI Score: 5.5 Patient denies any chest pain or undue shortness of breath with the above physical activity. Clinical Frailty Scale: 4. Apparently vulnerable STOP-Bang Score: Snores loudly Has been observed to stop breathing or choking/gasping during sleep Has or is being treated for high blood pressure Patient over 50 years old Denies feeling tired, fatigued, or sleepy during the daytime BMI less than or equal to 35 kg/m^2 Does not have a large neck Non-male patient STOP-Bang Score: 4 [id number] Score: Age: 65-74 Sex: female CHF history: No Hypertension history: Yes Stroke/TIA/thromboembolism history: No Vascular disease history: Yes Diabetes history: Yes [id number] Score: 5 ARISCAT Score: Age: 51-80 Preoperative SpO2: >=96% Respiratory infection in the last month: No Preoperative anemia: No Surgical incision: upper abdominal Duration of surgery: 2-3 hrs Emergency procedure: No ARISCAT Score: 34 I - PHYSICAL EVALUATION AIRWAY Patient intubated: No. Tracheostomy tube not present Mallampati: III. TM distance: >3 FB. Neck ROM: full ROM without neurological symptoms. Mouth opening: adequate. Short neck: no. Thick neck: no Brody present: no Lip Bite Test: I Microretrognathia/Micronagthia/Re cessed Chin: No DENTAL Dental findings: teeth intact. Additional comments: +crown/back. II - ANESTHESIA PLAN Anesthetic Plan: other Beta Anmol Monitoring Plan Post Procedure Analgesic Plan Prepared for Surgery: optimally prepared for surgery, pending [see comment]. Labs and ekg CONSULTS: Patient does not require consults for optimization at this time Planned Anesthetic: other anesthesia choice The Following Tests/Procedures Have Been Initiated: Orders Placed This Encounter >BMP Standing Status: Future Number of Occurrences: 1 Expected Date: 10/13/2024 Expiration Date: 01/12/2025 >CBC + AUTO DIFF Standing Status: Future Number of Occurrences: 1 Expected Date: 10/13/2024 Expiration Date: 01/12/2025 ECG COMPLETE Order Comments: Ordered by an unspecified provider ECG COMPLETE Standing Status: Future Expiration Date: 10/13/2025 REASON FOR VISIT: Zoraida Pires is a 73 year old female who is scheduled for Procedure(s): LAPAROSCOPIC HERNIA REPAIR INCISIONAL INITIAL REDUCIBLE W/MESH 3cm-10cm (N/A) at the request of Adriel Floyd MD for consultation. My final recommendation will be communicated back to the requesting physician by way of shared medical record or letter. Subjective The patient has the following: COVID-19 Immunization Status Completed or No Longer Recommended Covid-19 Vaccine Discontinued 01/27/2022 Frequency changed to Never by Meg Esposito MA (Patient Preference) CHIEF COMPLAINT: Pre-op exam HPI: Zoraida Pires is a 73 year old seen for PAC due to scheduled above surgery because of an incisional hernia. 09/28/2024, Dr. Solis Meeta is a 73-year-old female with a history of DM, hypothyroidism, and recent cardiac surgery, presenting for preoperative evaluation and management of her insulin pump prior to an upcoming hernia repair surgery. Meeta has been using a continuous insulin pump for glycemic control, which has resulted in a recent HbA1c of 6.8. She checks her blood glucose levels four times daily. She is unsure how to adjust the pump settings and will need guidance from her timber girdler to reduce it to basal rate before surgery. She inquires about the expected duration of the hernia repair surgery, which is estimated to be approximately 2 hours. She is also taking Synthroid and was advised to take it on an empty stomach. She has a history of recent cardiac surgery and inquires about the presence of chest tube sites, noting three areas on her chest. She is not on any anticoagulants other than aspirin and is advised to continue her regular medications, including aspirin, with a sip of water on the morning of surgery. She is flexible with the surgery date and prefers it to be scheduled as soon as possible, ideally before her birthday on [birth year]. She mentions that her brother will be available to watch her dog during her recovery period. She also plans to have a colonoscopy approximately 8 weeks after the hernia repair surgery. At her last office visit on August 17, 2024 I noted: Meeta is a 73-year-old female with a history of diabetes mellitus, PVD, and CAD, presenting with a bulge and discomfort at a prior transverse RUQ incision site. Meeta reports a bulge and discomfort along the medial aspect of a prior transverse RUQ incision, with exacerbation during lifting and coughing. She was initially evaluated 2 years ago for similar complaints, at which time a CT scan was discussed. She notes that the hernia appears to be enlarging. She has a history of diabetes mellitus, for which she is currently taking 27 units of Tresiba daily and Fiasp as needed. She reports that her blood glucose levels are "out of whack" and is preparing to start using an insulin pump. She also has a history of PVD and underwent bilateral peripheral stent placements approximately 2 years ago. She is a current smoker, consuming half a pack of cigarettes per day, but is attempting to quit. Meeta has a history of CAD and experienced worsening angina in November of last year. She underwent a cardiac catheterization, which revealed a 70% LAD lesion, an 80% circumflex lesion, and a totally occluded RCA. She subsequently underwent revascularization surgery in December of last year at [facility]. Her postoperative course was complicated by renal failure, requiring dialysis. She reports that her renal function has since improved, with recent blood work in June showing good results. She is scheduled for a follow-up appointment with her marketing proposal specialist next month. She denies any current chest pain or discomfort and was last seen by her hatch tender in June, who reportedly found no issues. She is currently taking aspirin and Coreg. She also has a history of a ruptured appendix, for which she has a large scar. She denies any sensation of a lower abdominal hernia. The patient is being seen by me at the request of Dr. Sandy Brawsell MD for my opinion and advice regarding incisional hernia increasing in size. Since her last visit, she is seeing her timber girdler and is now on an insulin pump. Her blood sugars and hemoglobin A1c see under much better control. She was given recommendations for adjusting her insulin pump in the perioperative phase. She was also seen by the [facility]. Their consultation felt that she was appropriate to proceed with surgery from a cardiac standpoint. REVIEW OF SYSTEMS: General: No weight loss, malaise or fevers. Neurological: No history of TIA's, stroke, BANQUET SUPERVISOR tumor, impaired sensorium, hemiplegia, paraplegia or quadraplegia. No neurological symptoms or problems. Respiratory: +former smoker Positive for: COPD, obstructive sleep apnea and CPAP/BiPAP noncompliant. Negative for: asthma, current cough, dyspnea, pneumonia within 6 weeks, tobacco use and URI < 2 weeks. Cardiovascular: +carotid artery stenosis, under surveillance Positive for: anticoagulation therapy (ASA), atrial fibrillation (remote hx post-op), CAD, hyperlipidemia, hypertension, murmur/valvular heart disease and open heart surgery Patient's last office visit with hatch tender, SUSAN, The following tests and/or procedures were performed: cardiac stents. Negative for: abdominal aortic aneurysm, AICD/PPM, angina, arrhythmia, chest pain, CHF, congenital heart defect, DVT/PE and recent HI. GI: See HPI. Positive for: GERD (on rx) Negative for: abdominal pain, dysphagia, hepatitis, irritable bowel syndrome, inflammatory bowel disease, liver disease, nausea, pancreatitis, vomiting and ETOH >2 drinks/day. : Positive for: renal failure (hx MELINDA, required short term dialysis following CABG, resolved). Patient's renal failure is chronic. Negative for: urinary incontinence, nephrolithiasis and urinary tract infection. 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 Endocrine: Positive for: diabetes mellitus and hypothyroidism (on rx). Patient's diabetes mellitus is controlled by insulin. Hematology: Positive for: anemia, iron deficiency anemia (on rx) and chronic anti-coagulation/platelet meds. Patient is on anti-coagulation/platelet medication(s): Aspirin. Negative for: bruises/bleeds easily and transfusion of at least 4 units within 72 hours prior to surgery. Oncology: No history of CA metastasis, chemo within 30 days, or radiotherapy within 90 days. No history of oncological symptoms or problems. Psych: Positive for: anxiety and depression (on rx). Musculoskeletal: +osteoporosis, pending Reclast infusion Positive for: back pain (rx as needed). Skin: Negative for lesions, rash and itching. 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 Laser Treatments Both Eyes (Ongoing) PERC TRANSL COR ANGIO Percutaneous Transluminal Coronary Angio Status POST-CATARACT LASER SURGERY Right 11/11/2023 Dr. Christensen REMV CATARACT EXTRACAP,INSERT LENS Bilateral RMVL LENS MATERIAL PHACOFRAGMENTATION ASPIR os 01/09/2011 Cataract Extraction STENT PLACEMENT 06/01/1995 with HI VITRECTOMY MECHANICAL PARS PLANA os 01/09/2011 [place] Vitrectomy WRIST SPLINT carpal tunnel on R FAMILY HISTORY Problem Relation Age of Onset Lipids Mother Allergies Mother Arthritis Mother Breast Cancer Mother Cancer Mother stomach COPD Mother Hypertension Mother Thyroid Mother Psychiatry Mother depression Cataract Mother Diabetes Father Prostate Lipids Father Allergies Father Cancer Father stomach Prostate Cancer Father Hypertension Father Stroke Father Thyroid Sister Allergies Sister Cervical Cancer Sister Hypertension Brother Allergies Brother Diabetes Maternal Uncle Social History Tobacco Use Smoking status: Former Average packs/day: 1 pack/day for 20.0 years (20.0 ttl pk-yrs) Types: Cigarettes Start date: 01/22/2024 Smokeless tobacco: Never Tobacco comments: Quit 01/22/2024 Vaping Use Vaping status: Never Used Substance Use Topics Alcohol use: Yes Alcohol/week: 1.0 standard drink of alcohol Types: 1 Cans of beer per week Drug use: No Prior to Admission medications as of 10/13/24 1019 Medication Sig Last Dose Taking traZODone (DESYREL) 50 mg tablet Take 1 tablet by mouth at bedtime as needed. Yes gabapentin (NEURONTIN) 100 mg capsule Take 1 capsule by mouth three times a day for 30 days. Yes lisinopril (ZESTRIL) 20 mg tablet Take 20 mg by mouth once daily. Yes aspirin, enteric coated (ASPIRIN, ENTERIC COATED) 81 mg EC tablet Take 1 tablet by mouth once daily. Yes carvedilol (COREG) 3.125 mg tablet Take 3.125 mg by mouth two times a day with meals. Yes levothyroxine (SYNTHROID) 75 mcg tablet Take 1 tablet by mouth every afternoon. Yes HYDROcodone-Acetaminophen (NORCO) 10-325 mg per tablet Take 1 tablet by mouth every 12 hours. Yes ZINC PICOLINATE ORAL Take 50 mg by mouth once daily. Yes ferrous bis-glycinate chelate (IRON BISGLYCINATE CHELATE ORAL) Take 18 mg by mouth once daily. Yes MAGNESIUM GLYCINATE ORAL Take 500 mg by mouth once daily. Yes Ascorbic Acid (VITAMIN C) 1,000 mg tablet Take 1,000 mg by mouth once daily. Yes Selenium 100 mcg tab Take 100 mcg by mouth once daily. Yes cholecalciferol, vitamin D3, (VITAMIN D3 ORAL) Take 250 mcg by mouth once daily. Yes Biotin 10,000 mcg cap Take 10,000 mcg by mouth once daily. Yes melatonin 12 mg tab Take 12 mg by mouth daily at bedtime. Yes vitamin b complex (B-COMPLEX) tab Take 1 tablet by mouth once daily. Yes VITAMIN K2 100 MCG CAPSULE Yes ubidecarenone/vitamin E mixed (COQ10 SG 100 ORAL) Take 100 mg by mouth once daily. Yes rosuvastatin (CRESTOR) 40 mg tablet Take 1 tablet by mouth once daily. Yes nitroglycerin sublingual (NITROQUICK) 0.4 mg SL tablet Dissolve 1 tablet under the tongue as needed. DISSOLVE ON TONGUE FOR CHEST PAIN. IF NO PAIN RELIEF, CALL 911 Yes citalopram (CELEXA) 40 mg tablet Take 1 tablet by mouth once daily. Yes pantoprazole DR (PROTONIX) 40 mg tablet Take 1 tablet by mouth once daily. Yes albuterol HFA (VENTOLIN HFA) 90 mcg/actuation inhaler Inhale 2 Puffs as instructed every 4 hours as needed for wheezing/shortness of breath. Yes PEG 400-propylene glycol (SYSTANE ULTRA) 0.4-0.3 % ophthalmic solution Use 1 Drop in both eyes every 2 hours while awake. Yes POLYVINYL ALCOHOL (20/20 ARTIFICIAL TEARS OPHTHALMIC) Use in eyes as needed. Yes blood sugar diagnostic test strip Test blood sugars five times daily Yes Medication Comments documented by Kim Young COT on 01/14/2011 at 1129. 2 gtt credit manager os bid and pink cap is qid, not sure of med names, pt didn't bring bottles ALLERGIES No Known Allergies Objective PHYSICAL EXAM: General: alert and oriented (x3) and healthy appearance. Pertinent negatives noted - not distressed. Skin: normal color, no rash or lesions. HEENT: EOM intact, pupils equal round and carotid bruit. Carotid bruit; laterality bilateral. Cardiovascular: Pulse characterized as regular.Positive for murmur. Pertinent negatives noted - no rub and no gallop. Respiratory: normal breath sounds, no wheezes or crackles. No chest wall deformity or tenderness. Abdomen: soft. Pertinent negatives noted - not tender. Extremities: no deformity, no edema or tenderness, no joint swelling or clubbing. Neurological: normal cognition and motor skills. Gait normal. No weakness or sensory deficit. PAIN ASSESSMENT: VITALS: BP 126/56 Pulse 71 Temp (Src) 97.2 (Temporal) Resp 12 Ht 5' 0" (1.52m) Wt 129 lb 12.8 oz (58.9kg) SpO2 97% BMI 25.35 kg/(m^2). Diagnostic tests reviewed for today's visit: Lab Value Units Date High Low HB No results within date range. HCT No results within date range. WBC No results within date range. PLT No results within date range. NA No results within date range. K No results within date range. GLUC No results within date range. BUN No results within date range. CREAT No results within date range. PTSEC No results within date range. INR No results within date range. APTT No results within date range. ALT No results within date range. AST No results within date range. TBILI No results within date range. TSH No results within date range. Lab Value Units Date High Low HCGQT No results within date range. UHCG No results within date range. HCG, BODY* No results within date range. Lab Value Units Date High Low ABORHD No results within date range. ABSCREEN No results within date range. Hemoglobin A1C Date Value 06/13/2024 7.4 09/15/2022 7.1 11/13/2021 7.7 06/29/2014 8.5 % 12/19/2013 8.5 % 05/31/2013 8.3 % 12/09/2012 7.9 % 08/28/2012 8.2 % Recent Results (from the past 8760 hours) ECG COMPLETE Collection Time: 10/13/24 10:31 AM Result Value Ventricular Rate 54 Atrial Rate 54 P-R Interval 142 QRS Duration 92 QT Interval 478 QTC Calculation (Bazett) 453 Calculated P Greenfield -11 Calculated R Greenfield 33 Calculated T Greenfield 38 Impression SINUS BRADYCARDIA INFERIOR MYOCARDIAL INFARCTION , AGE UNDETERMINED ABNORMAL ECG No results found for this or any previous visit (from the past 12530 hours). Instructions Given to Patient: Instructions located in the after visit summary. Patient given verbal and written preop instructions and voices comprehension and compliance. SIGNATURE: Angi Martin APRN.CNP PATIENT NAME: Zoraida Pires DATE: October 13, 2024 TIME: 10:16 AM PAGER/CONTACT #: documented in this encounter [facility] 10-13-2024 Instructions Angi Martin APRN.CNP - 10/13/2024 10:11 AM EDT Images from the original note were not included. [facility] PATIENT PREOPERATIVE INSTRUCTIONS No ref. provider found has scheduled you for your procedure at this surgery center: [facility]: [phone] -- [address] [facility] [address]. Please read below carefully for your personalized instructions. Dietary Restrictions: - No solid food after midnight. - You may have 12 ounces of clear liquids (water, clear juices such as apple juice or gatorade, carbonated beverages, clear tea, black coffee, jello) until 2 hours before scheduled arrival at facility. No red/purple coloring and no creamer/sugar Medications: Unless instructed differently below, stay on all of your medications until your surgery. If you start any new medications after today's visit, please contact your surgeon. Pre-Surgery Med Instructions Medication Instructions traZODone (DESYREL) 50 mg tablet Do not take the day of surgery gabapentin (NEURONTIN) 100 mg capsule If you normally take this medication in the morning, take the morning of surgery. lisinopril (ZESTRIL) 20 mg tablet If you normally take this medication in the morning, take the morning of surgery. aspirin, enteric coated (ASPIRIN, ENTERIC COATED) 81 mg EC tablet If you normally take this medication in the morning, take the morning of surgery. carvedilol (COREG) 3.125 mg tablet If you normally take this medication in the morning, take the morning of surgery. levothyroxine (SYNTHROID) 75 mcg tablet If you normally take this medication in the morning, take the morning of surgery. HYDROcodone-Acetaminophen (NORCO) 10-325 mg per tablet Continue as needed ZINC PICOLINATE ORAL Hold 7 days before surgery. Last dose 10/24/2024. ferrous bis-glycinate chelate (IRON BISGLYCINATE CHELATE ORAL) Hold 7 days before surgery. Last dose 10/24/2024. MAGNESIUM GLYCINATE ORAL Hold 7 days before surgery. Last dose 10/24/2024. Ascorbic Acid (VITAMIN C) 1,000 mg tablet Hold 7 days before surgery. Last dose 10/24/2024. Selenium 100 mcg tab Hold 7 days before surgery. Last dose 10/24/2024. cholecalciferol, vitamin D3, (VITAMIN D3 ORAL) Hold 7 days before surgery. Last dose 10/24/2024. Biotin 10,000 mcg cap Hold 7 days before surgery. Last dose 10/24/2024. melatonin 12 mg tab Hold 7 days before surgery. Last dose 10/24/2024. vitamin b complex (B-COMPLEX) tab Hold 7 days before surgery. Last dose 10/24/2024. VITAMIN K2 100 MCG CAPSULE Hold 7 days before surgery. Last dose 10/24/2024. ubidecarenone/vitamin E mixed (COQ10 SG 100 ORAL) Hold 7 days before surgery. Last dose 10/24/2024. rosuvastatin (CRESTOR) 40 mg tablet If you normally take this medication in the morning, take the morning of surgery. nitroglycerin sublingual (NITROQUICK) 0.4 mg SL tablet Continue as needed citalopram (CELEXA) 40 mg tablet If you normally take this medication in the morning, take the morning of surgery. pantoprazole DR (PROTONIX) 40 mg tablet If you normally take this medication in the morning, take the morning of surgery. albuterol HFA (VENTOLIN HFA) 90 mcg/actuation inhaler Continue as needed PEG 400-propylene glycol (SYSTANE ULTRA) 0.4-0.3 % ophthalmic solution If you normally take this medication in the morning, take the morning of surgery. POLYVINYL ALCOHOL (20/20 ARTIFICIAL TEARS OPHTHALMIC) If you normally take this medication in the morning, take the morning of surgery. blood sugar diagnostic test strip Is Patient Diabetic:Yes Preoperative Instructions for Patient's with Diabetes Mellitus/ Prediabetes Insulin Pump: Continue the same Basal Rate If you start any new medications after today's visit, please contact the surgeon's office. If you are currently using a [id number] injectable or oral medication for diabetes or weight loss such as Dulaglutide (Trulicity), Exenatide (Byetta, Bydureon), Liraglutide (Victoza, Saxenda), Semaglutide (Ozempic, Wegovy, Rybelsus), or Tirzepatide (Mounjaro), the medicine should be stopped at least 7 days before surgery. These medicines can cause food to remain in your stomach for a very long time and increase the risks from surgery and anesthesia. Not stopping the medication for a long enough time may result in your surgery being rescheduled. Blood Thinning Medications: - Stop NSAIDS (Ibuprofen, Advil, Aleve, Motrin, Celebrex, Mobic, etc.) 7 days before surgery, as directed by your surgeon. - Do NOT stop aspirin or other anticoagulants without consulting with your hatch tender or prescribing physician. - Stop ALL herbal and dietary supplements 7 days before surgery. - You may take Tylenol (Acetaminophen) or any of your pain medications that do not contain aspirin or NSAIDS as needed. Important Reminders: - Candy, mints, and tobacco products are NOT permitted the morning of surgery. - Hearing aids, dentures and glasses may be worn the morning of surgery. - NO jewelry, body piercings, makeup, hairpins or contacts are to be worn the day of surgery. If you develop symptoms such as a fever, cold, or flu, or have other changes to your health within TWO DAYS of scheduled surgery or the morning of surgery, please contact the surgery center above. Personal Belongings: -Please have photo ID and insurance cards. -If you do not have a copy of advance directives on file with us, please bring a copy with you on the day of surgery. - Leave ALL valuables and money at home or with family members. - Please bring high-quality footwear, such as sneakers, to the hospital for ambulating post-surgery. For Outpatient Procedures: - YOU MUST HAVE A RESPONSIBLE COMMERCIAL AIRLINE PILOT TAKE YOU HOME. A BAR ATTENDANT OR COMPUTER HARDWARE DESIGNER CANNOT BE MADE A RESPONSIBLE COMMERCIAL AIRLINE PILOT. - We recommend that a responsible person stays with you overnight to take care of you. - You cannot stay in a hotel alone after outpatient surgery. You will not be permitted to have your surgery, if you do not have someone to take care of you. Arrival Time for Surgery: - The Surgery Center or hospital where you are having surgery will call the afternoon before surgery (or Thursday for Thursday surgery) with a scheduled arrival time. - If you have not heard by 4 pm, please contact the surgery center above. Please be aware that emergency situations arise, which may delay or change your surgical time. If this happens, we will notify you as soon as possible and regret any inconvenience. If you already have an Advance Directive, please fax a copy to [phone] or email to for it to be added to your chart. If you do not have an Advance Directive, you can find the appropriate form and more information at [email or web address]. We recommend that you complete the Advance Directive form found on the website and bring it with you the day of your surgery. It can be witnessed and scanned into your chart that day. Angi Martin APRN.FELA documented in this encounter [facility] 10-07-2024 Telephone encounter Note LM to return call to office. Sunday Peng LPN [facility] 10-07-2024 Telephone encounter Note That is fine. Can please make sure that diabetic provider at [facility] has bone scan results. Unfortunately, we don't set it up there. I would suggest that she call her provider there to inquire about it. [facility] Work Phone: 10-06-2024 Telephone encounter Note Pt called and is notified of providers message and instructions. Pt states he Diabetic provider got a hold of her bone scan and gave her a couple of options, and she wanted to do the yearly infusion. She states she hasn't heard anything back. She wanted to know if provider could get a hold of Itzel Dominguez CAPSULE MACHINE OPERATOR with [facility] about that so she could get it set up. Please call and advise. Treva De Anda, RN [facility] 10-05-2024 Telephone encounter Note Can please let patient know that we did hear back from Dr. Hollis and he has no reservations for her starting fosamax for the osteoporosis. Please let me know if she would like to move forward with this and we can send into the pharmacy. Flaca Fischer APRN.ADVANCED CLINICAL SPECIALIST [facility] 10-04-2024 Telephone encounter Note Received response from Dr. Hollis's office via fax. "No issues". Sunday Peng LPN [facility] 09-30-2024 Note HNO ID: [id number] Author: ADRIEL SOLIS MD Service: ? Author Type: Physician Type: Progress Notes Filed: 10/14/2024 08:32 Note Text: HISTORY AND PHYSICAL Zoraida Pires 1950 REFERRING PHYSICIAN: Sandy Braswell MD CHIEF COMPLAINT: Consult (Feels she needs hernia surgery, was recommended prior but had not quit smoking) HPI: The patient is a 73 year old female with a complaint of incisional hernias. Meeta is a 73-year-old female with a history of DM, hypothyroidism, and recent cardiac surgery, presenting for preoperative evaluation and management of her insulin pump prior to an upcoming hernia repair surgery. Meeta has been using a continuous insulin pump for glycemic control, which has resulted in a recent HbA1c of 6.8. She checks her blood glucose levels four times daily. She is unsure how to adjust the pump settings and will need guidance from her timber girdler to reduce it to basal rate before surgery. She inquires about the expected duration of the hernia repair surgery, which is estimated to be approximately 2 hours. She is also taking Synthroid and was advised to take it on an empty stomach. She has a history of recent cardiac surgery and inquires about the presence of chest tube sites, noting three areas on her chest. She is not on any anticoagulants other than aspirin and is advised to continue her regular medications, including aspirin, with a sip of water on the morning of surgery. She is flexible with the surgery date and prefers it to be scheduled as soon as possible, ideally before her birthday on [birth year]. She mentions that her brother will be available to watch her dog during her recovery period. She also plans to have a colonoscopy approximately 8 weeks after the hernia repair surgery. At her last office visit on August 17, 2024 I noted: Meeta is a 73-year-old female with a history of diabetes mellitus, PVD, and CAD, presenting with a bulge and discomfort at a prior transverse RUQ incision site. Meeta reports a bulge and discomfort along the medial aspect of a prior transverse RUQ incision, with exacerbation during lifting and coughing. She was initially evaluated 2 years ago for similar complaints, at which time a CT scan was discussed. She notes that the hernia appears to be enlarging. She has a history of diabetes mellitus, for which she is currently taking 27 units of Tresiba daily and Fiasp as needed. She reports that her blood glucose levels are "out of whack" and is preparing to start using an insulin pump. She also has a history of PVD and underwent bilateral peripheral stent placements approximately 2 years ago. She is a current smoker, consuming half a pack of cigarettes per day, but is attempting to quit. Meeta has a history of CAD and experienced worsening angina in November of last year. She underwent a cardiac catheterization, which revealed a 70% LAD lesion, an 80% circumflex lesion, and a totally occluded RCA. She subsequently underwent revascularization surgery in December of last year at [facility]. Her postoperative course was complicated by renal failure, requiring dialysis. She reports that her renal function has since improved, with recent blood work in June showing good results. She is scheduled for a follow-up appointment with her marketing proposal specialist next month. She denies any current chest pain or discomfort and was last seen by her hatch tender in June, who reportedly found no issues. She is currently taking aspirin and Coreg. She also has a history of a ruptured appendix, for which she has a large scar. She denies any sensation of a lower abdominal hernia. The patient is being seen by me at the request of Dr. Sandy Braswell MD for my opinion and advice regarding incisional hernia increasing in size. Since her last visit, she is seeing her timber girdler and is now on an insulin pump. Her blood sugars and hemoglobin A1c see under much better control. She was given recommendations for adjusting her insulin pump in the perioperative phase. She was also seen by the [place] [place] [facility]. Their consultation felt that she was appropriate to proceed with surgery from a cardiac standpoint. 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 [facility] 09-30-2024 History of Present illness Narrative HISTORY AND PHYSICAL Zoraida Pires 1950 REFERRING PHYSICIAN: Sandy Braswell MD CHIEF COMPLAINT: Consult (Feels she needs hernia surgery, was recommended prior but had not quit smoking) HPI: The patient is a 73 year old female with a complaint of incisional hernias. Meeta is a 73-year-old female with a history of DM, hypothyroidism, and recent cardiac surgery, presenting for preoperative evaluation and management of her insulin pump prior to an upcoming hernia repair surgery. Meeta has been using a continuous insulin pump for glycemic control, which has resulted in a recent HbA1c of 6.8. She checks her blood glucose levels four times daily. She is unsure how to adjust the pump settings and will need guidance from her timber girdler to reduce it to basal rate before surgery. She inquires about the expected duration of the hernia repair surgery, which is estimated to be approximately 2 hours. She is also taking Synthroid and was advised to take it on an empty stomach. She has a history of recent cardiac surgery and inquires about the presence of chest tube sites, noting three areas on her chest. She is not on any anticoagulants other than aspirin and is advised to continue her regular medications, including aspirin, with a sip of water on the morning of surgery. She is flexible with the surgery date and prefers it to be scheduled as soon as possible, ideally before her birthday on [birth year]. She mentions that her brother will be available to watch her dog during her recovery period. She also plans to have a colonoscopy approximately 8 weeks after the hernia repair surgery. At her last office visit on August 17, 2024 I noted: Meeta is a 73-year-old female with a history of diabetes mellitus, PVD, and CAD, presenting with a bulge and discomfort at a prior transverse RUQ incision site. Meeta reports a bulge and discomfort along the medial aspect of a prior transverse RUQ incision, with exacerbation during lifting and coughing. She was initially evaluated 2 years ago for similar complaints, at which time a CT scan was discussed. She notes that the hernia appears to be enlarging. She has a history of diabetes mellitus, for which she is currently taking 27 units of Tresiba daily and Fiasp as needed. She reports that her blood glucose levels are "out of whack" and is preparing to start using an insulin pump. She also has a history of PVD and underwent bilateral peripheral stent placements approximately 2 years ago. She is a current smoker, consuming half a pack of cigarettes per day, but is attempting to quit. Meeta has a history of CAD and experienced worsening angina in November of last year. She underwent a cardiac catheterization, which revealed a 70% LAD lesion, an 80% circumflex lesion, and a totally occluded RCA. She subsequently underwent revascularization surgery in December of last year at [facility]. Her postoperative course was complicated by renal failure, requiring dialysis. She reports that her renal function has since improved, with recent blood work in June showing good results. She is scheduled for a follow-up appointment with her marketing proposal specialist next month. She denies any current chest pain or discomfort and was last seen by her hatch tender in June, who reportedly found no issues. She is currently taking aspirin and Coreg. She also has a history of a ruptured appendix, for which she has a large scar. She denies any sensation of a lower abdominal hernia. The patient is being seen by me at the request of Dr. Sandy Braswell MD for my opinion and advice regarding incisional hernia increasing in size. Since her last visit, she is seeing her timber girdler and is now on an insulin pump. Her blood sugars and hemoglobin A1c see under much better control. She was given recommendations for adjusting her insulin pump in the perioperative phase. She was also seen by the [place] [place] [facility]. Their consultation felt that she was appropriate to proceed with surgery from a cardiac standpoint. 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 Laser Treatments Both Eyes (Ongoing) PERC TRANSL COR ANGIO Percutaneous Transluminal Coronary Angio Status POST-CATARACT LASER SURGERY Right 11/11/2023 Dr. Fermin PHELPS CATARACT EXTRACAP,INSERT LENS Bilateral RMVL LENS MATERIAL PHACOFRAGMENTATION ASPIR os 01/09/2011 Cataract Extraction STENT PLACEMENT 06/01/1995 with HI VITRECTOMY MECHANICAL PARS PLANA os 01/09/2011 [place] Vitrectomy WRIST SPLINT carpal tunnel on R Current Outpatient Medications Medication Sig traZODone (DESYREL) 50 mg tablet Take 1 tablet by mouth at bedtime as needed. lisinopril (ZESTRIL) 20 mg tablet Take 20 mg by mouth once daily. aspirin, enteric coated (ASPIRIN, ENTERIC COATED) 81 mg EC tablet Take 1 tablet by mouth once daily. carvedilol (COREG) 3.125 mg tablet Take 3.125 mg by mouth two times a day with meals. levothyroxine (SYNTHROID) 75 mcg tablet Take 1 tablet by mouth every afternoon. HYDROcodone-Acetaminophen (NORCO) 10-325 mg per tablet Take 1 tablet by mouth every 12 hours. ZINC PICOLINATE ORAL Take 50 mg by mouth once daily. ferrous bis-glycinate chelate (IRON BISGLYCINATE CHELATE ORAL) Take 18 mg by mouth once daily. MAGNESIUM GLYCINATE ORAL Take 500 mg by mouth once daily. Ascorbic Acid (VITAMIN C) 1,000 mg tablet Take 1,000 mg by mouth once daily. Selenium 100 mcg tab Take 100 mcg by mouth once daily. cholecalciferol, vitamin D3, (VITAMIN D3 ORAL) Take 250 mcg by mouth once daily. Biotin 10,000 mcg cap Take 10,000 mcg by mouth once daily. melatonin 12 mg tab Take 12 mg by mouth daily at bedtime. vitamin b complex (B-COMPLEX) tab Take 1 tablet by mouth once daily. VITAMIN K2 100 MCG CAPSULE ubidecarenone/vitamin E mixed (COQ10 SG 100 ORAL) Take 100 mg by mouth once daily. vits A,C,E/lutein/minerals (HEALTHY EYES ORAL) Take by mouth. rosuvastatin (CRESTOR) 40 mg tablet Take 1 tablet by mouth once daily. nitroglycerin sublingual (NITROQUICK) 0.4 mg SL tablet Dissolve 1 tablet under the tongue as needed. DISSOLVE ON TONGUE FOR CHEST PAIN. IF NO PAIN RELIEF, CALL 911 citalopram (CELEXA) 40 mg tablet Take 1 tablet by mouth once daily. pantoprazole DR (PROTONIX) 40 mg tablet Take 1 tablet by mouth once daily. albuterol HFA (VENTOLIN HFA) 90 mcg/actuation inhaler Inhale 2 Puffs as instructed every 4 hours as needed for wheezing/shortness of breath. PEG 400-propylene glycol (SYSTANE ULTRA) 0.4-0.3 % ophthalmic solution Use 1 Drop in both eyes every 2 hours while awake. POLYVINYL ALCOHOL (20/20 ARTIFICIAL TEARS OPHTHALMIC) Use in eyes as needed. blood sugar diagnostic test strip Test blood sugars five times daily gabapentin (NEURONTIN) 100 mg capsule Take 1 capsule by mouth three times a day for 30 days. BD INSULIN SYRINGE ULTRA-FINE 0.3 mL 31 gauge x 5/16" once daily. insulin glargine (LANTUS U-100 INSULIN) 100 unit/mL injection Inject [address] Palumbo FIASP FLEXTOUCH U-100 INSULIN 100 unit/mL (3 mL) pen Inject as directed: small meal 5-6units; medium meal 6-7 units; large meal 8-[address] Palumbo. (Patient not taking: Reported on 09/28/2024) Insulin Syringe-Needle U-100 (ULTRA FINE INSULIN) 1 mL 30 x 1/2" syrg use 5 times a day as directed. No current facility-administered medications for this visit. ALLERGIES: Patient has no known allergies. PERSONAL HISTORY: Social History Tobacco Use Smoking status: Former Average packs/day: 1 pack/day for 20.0 years (20.0 ttl pk-yrs) Types: Cigarettes Start date: 01/22/2024 Smokeless tobacco: Never Tobacco comments: Quit 01/22/2024 Vaping Use Vaping status: Never Used Substance Use Topics Alcohol use: No Drug use: No FAMILY HISTORY: FAMILY HISTORY Problem Relation Age of Onset Lipids Mother Allergies Mother Arthritis Mother Breast Cancer Mother Cancer Mother stomach COPD Mother Hypertension Mother Thyroid Mother Psychiatry Mother depression Cataract Mother Diabetes Father Prostate Lipids Father Allergies Father Cancer Father stomach Prostate Cancer Father Hypertension Father Stroke Father Thyroid Sister Allergies Sister Cervical Cancer Sister Hypertension Brother Allergies Brother Diabetes Maternal Uncle REVIEW OF SYMPTOMS: The review of systems data was entered by the nurse and reviewed by me There are no exam notes on file for this visit. PHYSICAL EXAMINATION: General: The patient is 73 year old female, well nourished, well hydrated in no acute distress. The patient is oriented to time, place, and person. VITALS: Blood pressure 126/63, pulse 70, resp. rate 14, weight 58.9 kg (129 lb 12.8 oz), SpO2 97%. HEENT: Normal cephalic, ataumatic, pupils are equally round, sclera are anicteric, mucous membranes are moist, oropharynx is clear. Neck has no masses, asymmetry or lymphadenopathy. Thyroid is unremarkable. Respiratory: Clear to auscultation and percussion. Normal respiratory excursion and pattern. Cardiac: Examination is regular rate and rhythm. Abdominal exam: Soft, nontender, with no palpable masses. No hepatosplenomegaly. A subxiphoid hernia at the site of her previous chest tube location and hernia at her periumbilical region. Rectal exam: exam deferred Extremities: no clubbing, cyanosis or edema. No adenopathy. Other: LABORATORY VALUES: As Noted RADIOLOGIC STUDIES: As Noted Assessment I plan to perform a laparoscopic incisional hernia repair with mesh. The planned surgical procedure was discussed extensively with the patient. The risks, benefits and anticipated outcomes of the procedure, the risks and benefits of the alternatives to the procedure, and the roles and tasks of the personnel to be involved, were discussed with the patient. My staff has also explained the procedure in understandable terms and the patient was given the option to take printed material concerning the planned procedure. The patient had the opportunity to ask questions concerning the planned procedure. The patient freely consents to the planned procedure. She notes issues with constipation is concerned about the possibility postoperatively. I prescribed GoLytely which she should take a few days prior to surgery. We discussed that she does not have to complete the whole jug if she feels she has reasonable clearance of her stool so she will not have postoperative constipation. Anticipated Surgical Procedure/ CPT Code: Initial anterior abdominal hernia repair: 40938 - 3-10 cm incarcerated or strangulated -laparoscopic intraperitoneal onlay mesh repair Anticipated Anesthetic: General Patient weight: Blood pressure 126/63, pulse 70, resp. rate 14, weight 58.9 kg (129 lb 12.8 oz), SpO2 97%. BMI: Body mass index is 25.35 kg/m . Planned antibiotic: Ancef 2gm IVPB transactional attorney to OR SCDs needed: Yes Marine Drafter Needed: Yes Pre Op Clearance: Obtained, see chart Anticoagulation: No Diabetic: Yes Location: [place] Diagnoses: (K43.2) Incisional hernia, without obstruction or gangrene (primary encounter diagnosis) (E11.65, Z79.4) Type 2 diabetes mellitus with hyperglycemia, with long-term current use of insulin (HCC) (I73.9) Peripheral vascular disease (Z95.5) Presence of coronary angioplasty implant and graft (N18.1) Chronic kidney disease, stage 1 My findings have been communicated to Dr. Sandy Braswell MD via shared medical record. This note will be forwarded to Dr. Sandy Braswell MD. Return to Clinic: The patient is instructed to follow-up with me 1 week post operatively. Adriel Solis MD REVIEW OF SYSTEMS: General: The patient denies fatigue, denies weight loss, denies weight gain, denies feeling hot, and denies feelings of cold. Eyes: The patient denies glaucoma, denies eye injury/surgery, wears glasses or contacts. Ear/Nose/Throat: The patient notes allergies, denies hayfever, denies ear infections, and denies bloody noses. Cardiovascular: The patient denies chest pain, notes heart disease, notes high blood pressure,notes cardiac stent, notes prior heart attack, denies irregular heart beat, denies high cholesterol, notes poor circulation, denies heart failure, other cardiac issues, denies claudication, denies cold feet, notes peripheral arterial stent. Respiratory: The patient denies tuberculosis, denies pneumonia, denies frequent cough, denies pulmonary embolism, notes shortness of breath, and denies coughing up blood. Gastrointestinal: The patient denies difficulty swallowing, notes acid reflux, denies ulcers, denies vomiting, denies jaundice/hepatitis, denies gallbladder problems, denies black or tarry stools, denies hemorrhoids, denies bleeding from rectum, denies diverticulitis, notes constipation, denies diarrhea, denies loss of stool control, and notes hernias. Kidney/Bladder: The patient denies kidney stones, denies urine infections, and denies bloody urine. Skin: The patient denies a history of skin cancer, denies bleeding/changing moles, and denies a history of skin rash. Neurologic: The patient denies a history of epilepsy/convulsions, denies headaches, denies head/spinal injuries, and denies stroke/TIA. Psychiatric: The patient denies psychiatric medications, denies depression, and denies voices, denies substance abuse. Endocrine: The patient notes thyroid disorders, notes diabetes, and denies hormonal problems. Hematologic: The patient notes a history of bruising, denies bleeding, and denies anemia, denies blood clots. Infections: The patient denies a history of measles and mumps, denies rheumatic fever, and denies sexually transmitted diseases. Musculoskeletal: The patient notes back pain/injury, notes back problems, denies sciatica, denies knee/foot trouble, denies arthritis, or denies gout. When was patient's last Mammogram screening? 2024 Last Colonoscopy: 4to 5 years Maria Esther Valdez RN documented in this encounter [facility] 09-28-2024 Instructions Adriel Solis MD - 09/28/2024 4:38 PM EDT We discussed your upcoming hernia repair surgery: - Your surgery is scheduled for November 01. Please plan accordingly. - You may continue taking your aspirin and all other regular medications. You can take them with a sip of water the morning of surgery. - Your insulin pump will need to be adjusted to basal settings during surgery. Please schedule an appointment with your timber girdler to make these adjustments once the surgery date approaches. - Avoid heavy lifting for 8 weeks after surgery to allow for proper healing. We discussed your blood sugar management: - Continue checking your blood sugar 4 times a day. - Your continuous insulin pump will automatically adjust based on your blood sugar readings. No manual adjustments are needed. We discussed your Synthroid: - Continue taking Synthroid on an empty stomach as prescribed. We discussed your colonoscopy: - A colonoscopy can be scheduled at least 8 weeks after your hernia repair surgery. This will allow sufficient time for recovery and to avoid discomfort during bowel preparation. If you have any additional questions or concerns, please contact our office. Do take half of the golytely jug two nights before surgery to clean out your colon, repeat the night before if no results documented in this encounter [facility] 09-28-2024 Note HNO ID: [id number] Author: MARIA ESTHER VALDEZ RN Service: ? Author Type: Registered Nurse Type: Progress Notes Filed: 10/14/2024 08:32 Note Text: REVIEW OF SYSTEMS: General: The patient denies fatigue, denies weight loss, denies weight gain, denies feeling hot, and denies feelings of cold. Eyes: The patient denies glaucoma, denies eye injury/surgery, wears glasses or contacts. Ear/Nose/Throat: The patient notes allergies, denies hayfever, denies ear infections, and denies bloody noses. Cardiovascular: The patient denies chest pain, notes heart disease, notes high blood pressure,notes cardiac stent, notes prior heart attack, denies irregular heart beat, denies high cholesterol, notes poor circulation, denies heart failure, other cardiac issues, denies claudication, denies cold feet, notes peripheral arterial stent. Respiratory: The patient denies tuberculosis, denies pneumonia, denies frequent cough, denies pulmonary embolism, notes shortness of breath, and denies coughing up blood. Gastrointestinal: The patient denies difficulty swallowing, notes acid reflux, denies ulcers, denies vomiting, denies jaundice/hepatitis, denies gallbladder problems, denies black or tarry stools, denies hemorrhoids, denies bleeding from rectum, denies diverticulitis, notes constipation, denies diarrhea, denies loss of stool control, and notes hernias. Kidney/Bladder: The patient denies kidney stones, denies urine infections, and denies bloody urine. Skin: The patient denies a history of skin cancer, denies bleeding/changing moles, and denies a history of skin rash. Neurologic: The patient denies a history of epilepsy/convulsions, denies headaches, denies head/spinal injuries, and denies stroke/TIA. Psychiatric: The patient denies psychiatric medications, denies depression, and denies voices, denies substance abuse. Endocrine: The patient notes thyroid disorders, notes diabetes, and denies hormonal problems. Hematologic: The patient notes a history of bruising, denies bleeding, and denies anemia, denies blood clots. Infections: The patient denies a history of measles and mumps, denies rheumatic fever, and denies sexually transmitted diseases. Musculoskeletal: The patient notes back pain/injury, notes back problems, denies sciatica, denies knee/foot trouble, denies arthritis, or denies gout. When was patient's last Mammogram screening? 2024 Last Colonoscopy: 4to 5 years Maria Esther Valdez RN [facility] 09-27-2024 Telephone encounter Note Faxed OV note with note asking the same. T [facility] 09-27-2024 Telephone encounter Note Can we fax message over to Dr. Tam's offce again asking if he has any reservations re: treatment with fosamax. [facility] 09-27-2024 Telephone encounter Note Prescription Refill Information The patient has been identified by name and date of : Yes Caregiver verified no other encounters exist for this prescription request: Yes Caregiver confirmed with patient/requestor that no other refills are due, in the near future, with this provider at this time: Yes The last office visit in the department: 09/19/2024 Does the patient have a future office visit with this provider/department: Yes Requested Prescriptions Pending Prescriptions Disp Refills traZODone (DESYREL) 50 mg tablet 90 tablet 0 Sig: Take 1 tablet by mouth at bedtime as needed. Ruma Cardoso LPN September 27, 2024 7:06 AM [facility] 09-27-2024 Miscellaneous Notes Prescription Refill Information The patient has been identified by name and date of : Yes Caregiver verified no other encounters exist for this prescription request: Yes Caregiver confirmed with patient/requestor that no other refills are due, in the near future, with this provider at this time: Yes The last office visit in the department: 09/19/2024 Does the patient have a future office visit with this provider/department: Yes Requested Prescriptions Pending Prescriptions Disp Refills traZODone (DESYREL) 50 mg tablet 90 tablet 0 Sig: Take 1 tablet by mouth at bedtime as needed. Ruma Cardoso LPN September 27, 2024 7:06 AM documented in this encounter [facility] 09-23-2024 Telephone encounter Note Only received last office note from Nephrology. Scan on 09/23/2024 11:56 AM by Danielle Ford: Citizen Of [place] Kidney [facility] 09-21-2024 Telephone encounter Note OV note faxed, waiting response from Dr. Hollis's office. Waiting for response. Sunday Peng LPN [facility] 09-20-2024 Telephone encounter Note OV note faxed, waiting response from Dr. Palumbo's office. Sunday Peng LPN [facility] 09-19-2024 Telephone encounter Note Can we please sent copy of today's office notes to patient's marketing proposal specialist with question if he has any reservations re: starting fosamax. [facility] 09-19-2024 Note HNO ID: [id number] Author: FLACA FISCHER APRN.FELA Service: ? Author Type: Nurse Practitioner Type: Progress Notes Filed: 09/19/2024 19:03 Note Text: This is a 73 year old female who presents today with: Patient presents with: Discussion: Discuss treatments for osteoporsis HISTORY OF PRESENT ILLNESS: Zoraida Pires is a 73 year old female. Patient presents with: Discussion: Discuss treatments for osteoporsis Had a recent dexa scan that showed improvement in the lumbar back, but worsening at other locations. Recommended pharmacologic treatment. She recently had a CABG with a complicated recover, including kidney injury requiring dialysis. 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 Laser Treatments Both Eyes (Ongoing) PERC TRANSL COR ANGIO Percutaneous Transluminal Coronary Angio Status POST-CATARACT LASER SURGERY Right 11/11/2023 Dr. Christensen REMV CATARACT EXTRACAP,INSERT LENS Bilateral RMVL LENS MATERIAL PHACOFRAGMENTATION ASPIR os 01/09/2011 Cataract Extraction STENT PLACEMENT 06/01/1995 with HI VITRECTOMY MECHANICAL PARS PLANA os 01/09/2011 [place] Vitrectomy WRIST SPLINT carpal tunnel on R ALLERGIES Patient has no known allergies. MEDICATIONS Current Outpatient Medications Medication Sig gabapentin (NEURONTIN) 100 mg capsule Take 1 capsule by mouth three times a day for 30 days. lisinopril (ZESTRIL) 20 mg tablet Take 20 mg by mouth once daily. aspirin, enteric coated (ASPIRIN, ENTERIC COATED) 81 mg EC tablet Take 1 tablet by mouth once daily. carvedilol (COREG) 3.125 mg tablet Take 3.125 mg by mouth two times a day with meals. levothyroxine (SYNTHROID) 75 mcg tablet Take 1 tablet by mouth every afternoon. HYDROcodone-Acetaminophen (NORCO) 10-325 mg per tablet Take 1 tablet by mouth every 12 hours. ZINC PICOLINATE ORAL Take 50 mg by mouth once daily. ferrous bis-glycinate chelate (IRON BISGLYCINATE CHELATE ORAL) Take 18 mg by mouth once daily. MAGNESIUM GLYCINATE ORAL Take 500 mg by mouth once daily. Ascorbic Acid (VITAMIN C) 1,000 mg tablet Take 1,000 mg by mouth once daily. Selenium 100 mcg tab Take 100 mcg by mouth once daily. cholecalciferol, vitamin D3, (VITAMIN D3 ORAL) Take 250 mcg by mouth once daily. Biotin 10,000 mcg cap Take 10,000 mcg by mouth once daily. melatonin 12 mg tab Take 12 mg by mouth daily at bedtime. vitamin b complex (B-COMPLEX) tab Take 1 tablet by mouth once daily. VITAMIN K2 100 MCG CAPSULE ubidecarenone/vitamin E mixed (COQ10 SG 100 ORAL) Take 100 mg by mouth once daily. vits A,C,E/lutein/minerals (HEALTHY EYES ORAL) Take by mouth. traZODone (DESYREL) 50 mg tablet Take 1 tablet by mouth at bedtime as needed. rosuvastatin (CRESTOR) 40 mg tablet Take 1 tablet by mouth once daily. nitroglycerin sublingual (NITROQUICK) 0.4 mg SL tablet Dissolve 1 tablet under the tongue as needed. DISSOLVE ON TONGUE FOR CHEST PAIN. IF NO PAIN RELIEF, CALL 911 citalopram (CELEXA) 40 mg tablet Take 1 tablet by mouth once daily. pantoprazole DR (PROTONIX) 40 mg tablet Take 1 tablet by mouth once daily. BD INSULIN SYRINGE ULTRA-FINE 0.3 mL 31 gauge x 5/16" once daily. insulin glargine (LANTUS U-100 INSULIN) 100 unit/mL injection Inject [address] Palumbo FIASP FLEXTOUCH U-100 INSULIN 100 unit/mL (3 mL) pen Inject as directed: small meal 5-6units; medium meal 6-7 units; large meal 8-[address] Palumbo. albuterol HFA (VENTOLIN HFA) 90 mcg/actuation inhaler Inhale 2 Puffs as instructed every 4 hours as needed for wheezing/shortness of breath. PEG 400-propylene glycol (SYSTANE ULTRA) 0.4-0.3 % ophthalmic solution Use 1 Drop in both eyes every 2 hours while awake. Insulin Syringe-Needle U-100 (ULTRA FINE INSULIN) 1 mL 30 x 1/2" syrg use 5 times a day as directed. POLYVINYL ALCOHOL (20/20 ARTIFICIAL TEARS OPHTHALMIC) Use in eyes as needed. blood sugar diagnostic test strip Test blood sugars five times daily No current facility-administered medications for this visit. FAMILY HISTORY Problem Relation Age of Onset Lipids Mother Allergies Mother Arthritis Mother Breast Cancer Mother Cancer Mother stomach C (more content not included)... [facility] 09-19-2024 History of Present illness Narrative This is a 73 year old female who presents today with: Patient presents with: Discussion: Discuss treatments for osteoporsis HISTORY OF PRESENT ILLNESS: Zoraida Pires is a 73 year old female. Patient presents with: Discussion: Discuss treatments for osteoporsis Had a recent dexa scan that showed improvement in the lumbar back, but worsening at other locations. Recommended pharmacologic treatment. She recently had a CABG with a complicated recover, including kidney injury requiring dialysis. 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) Pseudophakia of left eye Sleep apnea Unspecified hypothyroidism PAST SURGICAL HISTORY Procedure Laterality Date BALLN ANGIOPLASTY OPEN,FEM-POP COLONOSCOPY FLX DX W/COLLJ SPEC WHEN PFRMD 09/23/2007 Colonoscopy ESOPHAGOGASTRODUODENOSCOPY TRANSORAL DIAGNOSTIC 09/23/2007 EGD PAST SURGICAL HISTORY OF 2004-? Laser Treatments Both Eyes (Ongoing) PERC TRANSL COR ANGIO Percutaneous Transluminal Coronary Angio Status POST-CATARACT LASER SURGERY Right 11/11/2023 Dr. Christensen REMV CATARACT EXTRACAP,INSERT LENS Bilateral RMVL LENS MATERIAL PHACOFRAGMENTATION ASPIR os 01/09/2011 Cataract Extraction STENT PLACEMENT 06/01/1995 with HI VITRECTOMY MECHANICAL PARS PLANA os 01/09/2011 [place] Vitrectomy WRIST SPLINT carpal tunnel on R ALLERGIES Patient has no known allergies. MEDICATIONS Current Outpatient Medications Medication Sig gabapentin (NEURONTIN) 100 mg capsule Take 1 capsule by mouth three times a day for 30 days. lisinopril (ZESTRIL) 20 mg tablet Take 20 mg by mouth once daily. aspirin, enteric coated (ASPIRIN, ENTERIC COATED) 81 mg EC tablet Take 1 tablet by mouth once daily. carvedilol (COREG) 3.125 mg tablet Take 3.125 mg by mouth two times a day with meals. levothyroxine (SYNTHROID) 75 mcg tablet Take 1 tablet by mouth every afternoon. HYDROcodone-Acetaminophen (NORCO) 10-325 mg per tablet Take 1 tablet by mouth every 12 hours. ZINC PICOLINATE ORAL Take 50 mg by mouth once daily. ferrous bis-glycinate chelate (IRON BISGLYCINATE CHELATE ORAL) Take 18 mg by mouth once daily. MAGNESIUM GLYCINATE ORAL Take 500 mg by mouth once daily. Ascorbic Acid (VITAMIN C) 1,000 mg tablet Take 1,000 mg by mouth once daily. Selenium 100 mcg tab Take 100 mcg by mouth once daily. cholecalciferol, vitamin D3, (VITAMIN D3 ORAL) Take 250 mcg by mouth once daily. Biotin 10,000 mcg cap Take 10,000 mcg by mouth once daily. melatonin 12 mg tab Take 12 mg by mouth daily at bedtime. vitamin b complex (B-COMPLEX) tab Take 1 tablet by mouth once daily. VITAMIN K2 100 MCG CAPSULE ubidecarenone/vitamin E mixed (COQ10 SG 100 ORAL) Take 100 mg by mouth once daily. vits A,C,E/lutein/minerals (HEALTHY EYES ORAL) Take by mouth. traZODone (DESYREL) 50 mg tablet Take 1 tablet by mouth at bedtime as needed. rosuvastatin (CRESTOR) 40 mg tablet Take 1 tablet by mouth once daily. nitroglycerin sublingual (NITROQUICK) 0.4 mg SL tablet Dissolve 1 tablet under the tongue as needed. DISSOLVE ON TONGUE FOR CHEST PAIN. IF NO PAIN RELIEF, CALL 911 citalopram (CELEXA) 40 mg tablet Take 1 tablet by mouth once daily. pantoprazole DR (PROTONIX) 40 mg tablet Take 1 tablet by mouth once daily. BD INSULIN SYRINGE ULTRA-FINE 0.3 mL 31 gauge x 5/16" once daily. insulin glargine (LANTUS U-100 INSULIN) 100 unit/mL injection Inject [address] Palumbo FIASP FLEXTOUCH U-100 INSULIN 100 unit/mL (3 mL) pen Inject as directed: small meal 5-6units; medium meal 6-7 units; large meal 8-[address] Palumbo. albuterol HFA (VENTOLIN HFA) 90 mcg/actuation inhaler Inhale 2 Puffs as instructed every 4 hours as needed for wheezing/shortness of breath. PEG 400-propylene glycol (SYSTANE ULTRA) 0.4-0.3 % ophthalmic solution Use 1 Drop in both eyes every 2 hours while awake. Insulin Syringe-Needle U-100 (ULTRA FINE INSULIN) 1 mL 30 x 1/2" syrg use 5 times a day as directed. POLYVINYL ALCOHOL (20/20 ARTIFICIAL TEARS OPHTHALMIC) Use in eyes as needed. blood sugar diagnostic test strip Test blood sugars five times daily No current facility-administered medications for this visit. FAMILY HISTORY Problem Relation Age of Onset Lipids Mother Allergies Mother Arthritis Mother Breast Cancer Mother Cancer Mother stomach COPD Mother Hypertension Mother Thyroid Mother Psychiatry Mother depression Cataract Mother Diabetes Father Prostate Lipids Father Allergies Father Cancer Father stomach Prostate Cancer Father Hypertension Father Stroke Father Thyroid Sister Allergies Sister Cervical Cancer Sister Hypertension Brother Allergies Brother Diabetes Maternal Uncle Social History Tobacco Use Smoking status: Former Average packs/day: 1 pack/day for 20.0 years (20.0 ttl pk-yrs) Types: Cigarettes Start date: 01/22/2024 Smokeless tobacco: Never Tobacco comments: Quit 01/22/2024 Vaping Use Vaping status: Never Used Substance Use Topics Alcohol use: No Drug use: No EXAM: BP 116/54 Pulse 60 Resp 16 SpO2 96% PHYSICAL EXAM: General Appearance: Well appearing, alert, in no acute distress, well-hydrated, well nourished.. Skin: Skin color, texture, turgor normal, no suspicious rashes or lesions. Head: Normocephalic, no masses, lesions, tenderness or abnormalities. Eyes: Anicteric sclera. Extraocular movements are intact. . Neurologic: Gait normal. ASSESSMENT/PLAN: 1. Age-related osteoporosis without current pathological fracture - ICD9: 733.01, ICD10: M81.0 Discussed treatment options. She is interested in a trial of fosamax. She recently had a complicated recovery after CABG, including kidney injury resulting in dialysis. Creatinine clearance appears adequate for fosamax. Prior to instituting, will message her marketing proposal specialist to ensure no reservations. Did discuss potential side effects, specifically her hx of GERD. She is on PPI, but advised with any worsening symptoms, medication would need stopped/changed. Discussed treatment plan and patient voices understanding. Patient's questions answered appropriately. Medications and potential side effects were discussed and patient voices understanding. Return to the office as scheduled or as needed for worsening/no improvement. Flaca Fischer APRN.FELA The patient indicates understanding of these issues and agrees with the plan. documented in this encounter [facility] 09-12-2024 Evaluation note Diagnosis Onset Date Resolution Insulin pump titration acute Ap ril 2024 10:19am Chronic kidney disease chronic Ap ril 2024 10:19am Essential hypertension chronic Ap ril 2024 10:19am Hypothyroidism chronic August 10:19am Microalbuminuria chronic September 122024 10:19am Overweight chronic September 12, 20 25 10:19am Presence of insulin pump chronic September 12, 2024 10:19am Type 1 diabetes mellitus with hyperglycemia chronic September 12, 2 025 10:19am Vitamin D deficiency chronic Apri l 2024 10:19am Encounter for screening for malignant neoplasm of lung acute September 13, 2024 12:13pm History of tobacco use acute Ap ril 2024 12:13pm Preoperative clearance acute Ap ril 2024 1:13pm Essential hypertension chronic Ap ril 2024 1:13pm Mixed hyperlipidemia chronic Apri l 2024 1:13pm Peripheral arterial disease chronic September 22, 2024 1:13pm Status post aorto-coronary artery bypass graft resolved September 22, 2024 1:13pm Transient atrial fibrillation resolved September 22, 2024 1:13pm [facility] Work Phone: 1(355) 196-807104-14-2025 Evaluation note* Diagnosis Onset Date Resolution Status Admit Date Insulin pump titration acute Ap ril 2024 10:19am Chronic kidney disease chronic Ap ril 2024 10:19am Essential hypertension chronic Ap ril 2024 10:19am Hypothyroidism chronic August 10:19am Microalbuminuria chronic September 122024 10:19am Overweight chronic September 12 10:19am Presence of insulin pump chronic September 12, 2024 10:19am Type 1 diabetes mellitus wit h hyperglycemia chronic September 12, 2024 10:19am Vitamin D deficiency chronic Apri l 2024 10:19am Encounter for screening for malignant neoplasm of lung acute September 13, 2024 12:13pm History of tobacco use acute Ap ril 2024 12:13pm Preoperative clearance acute Ap ril 2024 1:13pm Essential hypertension chronic Ap ril 2024 1:13pm Mixed hyperlipidemia chronic Apri l 2024 1:13pm Peripheral arterial disease chronic September 22, 2024 1:13pm Status post aorto-coronary a rtery bypass graft resolved September 22, 2024 1:13pm Transient atrial fibrillation resolv ed September 22, 2024 1:13pm Peripheral arterial disease chronic October 19, 2024 2:11pm [facility] Work Phone: 1(203) 508-980704-14-2025 Evaluation note* Diagnosis Onset Date Resolution Status Admit Date Insulin pump titration acute Ap ril 2024 10:19am Chronic kidney disease chronic Ap ril 2024 10:19am Essential hypertension chronic Ap ril 2024 10:19am Hypothyroidism chronic August 10:19am Microalbuminuria chronic September 122024 10:19am Overweight chronic September 12 10:19am Presence of insulin pump chronic September 12, 2024 10:19am Type 1 diabetes mellitus wit h hyperglycemia chronic September 12, 2024 10:19am Vitamin D deficiency chronic Apri l 2024 10:19am Encounter for screening for malignant neoplasm of lung acute September 13, 2024 12:13pm History of tobacco use acute Ap ril 2024 12:13pm Preoperative clearance acute Ap ril 2024 1:13pm Essential hypertension chronic Ap ril 2024 1:13pm Mixed hyperlipidemia chronic Apri l 2024 1:13pm Peripheral arterial disease chronic September 22, 2024 1:13pm Status post aorto-coronary a rtery bypass graft resolved September 22, 2024 1:13pm Transient atrial fibrillation resolv ed September 22, 2024 1:13pm Peripheral arterial disease chronic October 19, 2024 2:11pm Insulin pump titration acute Ju ne 2024 9:48am Presence of insulin pump chronic October 31, 2024 9:48am Type 1 diabetes mellitus wit h hyperglycemia chronic October 31, 2024 9 :48am [facility] Work Phone: [phone]) [phone] Telephone encounter Note* Telephone Encounter - Rosaura Us RN - 09/09/2024 9:12 AM EDT Spoke with patient Meeta to obtain the names of her providers. Cardiology-DR Mira Wood- [place] [facility] [phone]- spoke with that office Patient last seen April of 2024 Their office is going to contact Meeta to be seen because she id due for her 6 month follow up. Provided the fax number for Cortney to have the office note faxed after she is seen. Nephrology- Dr Jose Alfredo Hollis- [place]/ [place] [phone] Patient last seen 09/08/24 Spoke with that office they will fax note for review. Endocrinology- Dr Angel Dominguez [facility]- [facility], [place] [phone] Patient has appt to be seen there on 09/12/24 Asked the patient and Beni at that office to have note faxed here to Dr Solis for review for review [facility]04-11-2025 Miscellaneous Notes* Telephone Encounter - Rosaura Us RN - 09/09/2024 9:12 AM EDT Spoke with patient Meeta to obtain the names of her providers. Cardiology-DR Mira Wood- [facility] [phone]- spoke with that office Patient last seen April of 2024 Their office is going to contact Meeta to be seen because she id due for her 6 month follow up. Provided the fax number for Cortney to have the office note faxed after she is seen. Nephrology- Dr Jose Alfredo Hollis- [place]/ [place] [phone] Patient last seen 09/08/24 Spoke with that office they will fax note for review. Endocrinology- Dr Angel Palumbo [facility]- [facility], [place] [phone] Patient has appt to be seen there on 09/12/24 Asked the patient and Beni at that office to have note faxed here to Dr Solis for review for review * Telephone Encounter - Rosaura Us RN - 09/09/2024 8:00 AM EDT Images from the original note were not included. Adriel Solis MD You; Irasema Rey LPN; [facility] [place]; Sunday Del [place]13 hours ago (6:51 PM) She had a very complicated course after her bypass surgery. Her note from cardiology was an older note that did not make any comments about surgical risk and recommendations. I would like us to get an updated note from cardiology. I understand she is seeing nephrology and would like to see their note. Further, her blood glucose levels are poorly controlled and she was going to be starting an insulin pump. I would like this information and to know that her blood glucose levels are improved. I would plan to have her follow-up in my office once we have the above information and not just scheduleher currently. Thanks-Rich * Telephone Encounter - Rosaura Us RN - 09/07/2024 3:[address] Solis 08/17/24 note: PLAN: 1. Incisional hernia, without obstruction or gangrene (K43.2) - Hernia located approximately 8 cm below the xiphoid with a secondary defect at the umbilicus; primary defect measures approximately 5x4 cm, secondary defect approximately 1 cm. - Ordered repeat CT scan to assess for potential additional hernias and evaluate current size of known defects. - Plan for laparoscopic repair with mesh placement; two smaller pieces of mesh likely required due to separation of defects. - Will obtain cardiology and nephrology records to ensure patient is medically optimized for surgery. Do you want patient to schedule surgery? * Telephone Encounter - Irasema Rey LPN - 09/07/2024 3:39 PM EDT Patient calling in requesting results of CT. Patient requesting a call back. Irasema Rey LPN [facility] Telephone encounter Note * Telephone Encounter - Rosaura Us RN - 09/09/2024 8:00 AM EDT Images from the original note were not included. Adriel Solis MD You; Irasema Rey LPN; [facility] [place]; [place]13 hours ago (6:51 PM) She had a very complicated course after her bypass surgery. Her note from cardiology was an older note that did not make any comments about surgical risk and recommendations. I would like us to get an updated note from cardiology. I understand she is seeing nephrology and would like to see their note. Further, her blood glucose levels are poorly controlled and she was going to be starting an insulin pump. I would like this information and to know that her blood glucose levels are improved. I would plan to have her follow-up in my office once we have the above information and not just scheduleher currently. Thanks-Rich [facility]04-09-2025 Telephone encounter Note* Telephone Encounter - Rosaura Us RN - 09/07/2024 3:[address] Solis 08/17/24 note: PLAN: 1. Incisional hernia, without obstruction or gangrene (K43.2) - Hernia located approximately 8 cm below the xiphoid with a secondary defect at the umbilicus; primary defect measures approximately 5x4 cm, secondary defect approximately 1 cm. - Ordered repeat CT scan to assess for potential additional hernias and evaluate current size of known defects. - Plan for laparoscopic repair with mesh placement; two smaller pieces of mesh likely required due to separation of defects. - Will obtain cardiology and nephrology records to ensure patient is medically optimized for surgery. Do you want patient to schedule surgery? [facility]04-09-2025 Telephone encounter Note* Telephone Encounter - Irasema Rey LPN - 09/07/2024 3:39 PM EDT Patient calling in requesting results of CT. Patient requesting a call back. Irasema Rey LPN [facility]04-04-2025 Telephone encounter Note* Telephone Encounter - Abisai Keenan RN - 09/02/2024 1:25 PM EDT Phoned patient and given provider's message below with verbalized understanding. Patient agreeable and scheduled appt with Certified Physical Therapist Assistant. [facility]04-04-2025 Miscellaneous Notes* Telephone Encounter - Abisai Keenan RN - 09/02/2024 1:25 PM EDT Phoned patient and given provider's message below with verbalized understanding. Patient agreeable and scheduled appt with Certified Physical Therapist Assistant. * Telephone Encounter - Sandy Braswell MD - 09/02/2024 1:07 PM EDT Mammogram is ok. Bone density shows osteoporosis. Would recommend coming in to discuss options of tx. * Telephone Encounter - Nina Simons LPN - 09/02/2024 11:43 AM EDT Scan on 09/02/2024 8:02 AM by Ashley Gray PA-C: Mammography * Telephone Encounter - Nina Simons LPN - 09/01/2024 1:49 PM EDT BMD results from [facility]: Scan on 09/01/2024 10:58 AM by Ashley Gray PA-C: Bone Density documented [facility] Telephone encounter Note * Telephone Encounter - Sandy Braswell MD - 09/02/2024 1:07 PM EDT Mammogram is ok. Bone density shows osteoporosis. Would recommend coming in to discuss options of tx. [facility]04-04-2025 Telephone encounter Note* Telephone Encounter - Nina Simons LPN - 09/02/2024 11:43 AM EDT Scan on 09/02/2024 8:02 AM by Ashley Gray PA-C: Mammography [facility]04-03-2025 Telephone encounter Note* Telephone Encounter - Nina Simons LPN - 09/01/2024 1:49 PM EDT BMD results from [facility]: Scan on 09/01/2024 10:58 AM by Ashley Gray PA-C: Bone Density [facility]03-25-2025 Telephone encounter Note* Telephone Encounter - Yolande Quiñonez RN - 08/23/2024 3:00 PM EDT Nicholas with [facility] Coding department calls to request additional diagnosis for [facility]. Nicotine/Cigarette dependence acceptable. Nicholas to use F17.210 Yolande Quiñonez RN [facility]03-25-2025 Miscellaneous Notes* Telephone Encounter - Yolande Quiñonez RN - 08/23/2024 3:00 PM EDT Nicholas with [facility] Coding department calls to request additional diagnosis for [facility]. Nicotine/Cigarette dependence acceptable. Nicholas to use F17.210 Yolande Quiñonez RN documented in this encounter[facility] Telephone encounter Note * Telephone Encounter - Nina Simons LPN - 08/22/2024 1:36 PM EDT Prescription Refill Information The patient has been identified by name and date of : Yes Caregiver verified no other encounters exist for this prescription request: Yes Caregiver confirmed with patient/requestor that no other refills are due, in the near future, with this provider at this time: Yes The last office visit in the department: 08/03/24 Does the patient have a future office visit with this provider/department: Yes Requested Prescriptions Pending Prescriptions Disp Refills gabapentin (NEURONTIN) 100 mg capsule 90 capsule 0 Sig: Take 1 capsule by mouth three times a day for 30 days. Nina Simons LPN August 22, 2024 1:36 PM [facility]03-24-2025 Miscellaneous Notes* Telephone Encounter - Nina Simons LPN - 08/22/2024 1:36 PM EDT Prescription Refill Information The patient has been identified by name and date of : Yes Caregiver verified no other encounters exist for this prescription request: Yes Caregiver confirmed with patient/requestor that no other refills are due, in the near future, with this provider at this time: Yes The last office visit in the department: 08/03/24 Does the patient have a future office visit with this provider/department: Yes Requested Prescriptions Pending Prescriptions Disp Refills gabapentin (NEURONTIN) 100 mg capsule 90 capsule 0 Sig: Take 1 capsule by mouth three times a day for 30 days. Nina Simons LPN August 22, 2024 1:36 PM documented in this encounterK[facility]03-19-2025 Instructions* Patient Instructions* Adriel Solis MD - 08/17/2024 8:48 PM EDT We discussed your incisional hernia: - You have an incisional hernia located in the upper abdomen, approximately 8 cm below the xiphoid,as well as a smaller hernia near the belly button (approximately 1 cm in size). These findings are based on your prior CT scan from August 2022. - The hernia appears to have increased in size since your last visit, with the larger hernia now measuring approximately 5 x 4 cm on physical exam. - I plan to order a new CT scan to evaluate whether the hernias have grown further and to check forany additional hidden hernias in the lower incision area. This will help determine the best surgical approach. - My initial plan is to repair the hernias laparoscopically using two smaller pieces of mesh, one for each defect. However, if additional hernias are found, this may require a different surgical approach, which could involve referral to a specialist in [place]. We discussed your medical history and surgical clearance: - You had heart surgery in December 2021 for coronary artery disease, with a history of a 70% LAD lesion, 80% circumflex lesion, and a completely blocked right coronary artery. You also experienced kidney failure requiring dialysis during your post-operative course. - I will request records from your hatch tender (Dr. Wood) and marketing proposal specialist to ensure you are safefor surgery. My office will handle obtaining these records. - Please continue following up with your marketing proposal specialist and hatch tender as scheduled. We discussed your diabetes: - Your blood sugars are currently out of control, and you are preparing to start using an insulin pump. Please continue monitoring your blood sugar levels closely and follow your diabetes management plan. Next steps: - I will place an order for a new CT scan to evaluate the hernias. My office will contact you with scheduling details. - I will request records from your hatch tender, marketing proposal specialist, and [facility] to ensure all necessary information is available for surgical planning. - Once the CT scan is completed and records are received, we will determine the best surgical approach and proceed with planning your hernia repair. Please let me know if you have any new or worsening symptoms, such as increased pain, changes in the hernia size, or other concerns. documented in this encounterK[facility]03-19-2025 NoteHNO ID: [id number] Author: ADRIEL SOLIS MD Service: ? Author Type: Physician Type: Progress Notes Filed: 08/17/2024 20:49 Note Text: HISTORY AND PHYSICAL Zoraida Pires 1950 REFERRING PHYSICIAN: Self CHIEF COMPLAINT: Consult HPI: Meeta is a 73-year-old female with a history of diabetes mellitus, PVD, and CAD, presenting with a bulge and discomfort at a prior transverse RUQ incision site. Meeta reports a bulge and discomfort along the medial aspect of a prior transverse RUQ incision, with exacerbation during lifting and coughing. She was initially evaluated 2 years ago for similar complaints, at which time a CT scan was discussed. She notes that the hernia appears to be enlarging. She has a history of diabetes mellitus, for which she is currently taking 27 units of Tresiba daily and Fiasp as needed. She reports that her blood glucose levels are "out of whack" and is preparing to start using an insulin pump. She also has a history of PVD and underwent bilateral peripheral stent placements approximately 2 years ago. She is a current smoker, consuming half a pack of cigarettes per day, but is attempting to quit. Meeta has a history of CAD and experienced worsening angina in November of last year. She underwent a cardiac catheterization, which revealed a 70% LAD lesion, an 80% circumflex lesion, and a totally occluded RCA. She subsequently underwent revascularization surgery in December of last year at [facility]. Her postoperative course was complicated by renal failure, requiring dialysis. She reports that her renal function has since improved, with recent blood work in June showing good results. She is scheduled for a follow-up appointment with her marketing proposal specialist next month. She denies any current chest pain or discomfort and was last seen by her hatch tender in June, who reportedly found no issues. She is currently taking aspirin and Coreg. She also has a history of a ruptured appendix, for which she has a large scar. She denies any sensation of a lower abdominal hernia. The patient is being seen by me today at the request of Dr. Sandy Braswell MD for my opinion and advice regarding incisional hernia increasing in size. PAST MEDICAL HISTORY Diagnosis Date Atherosclerosis Cataract both eyes Degenerative disc disease Depression Diabetes mellitus (HCC) Essential hypertension, benign Hemorrhage of gastrointestinal tract, unspecified Impaired circulation of left leg both legs Neuropathy Other acute and subacute form of ischemic heart disease 06/01/1995 Other and unspecified hyperlipidemia Other specified disorders of pancreatic internal secretion PDR (proliferative diabetic retinopathy) (HCC) Pseudophakia of left eye Sleep apnea Unspecified hypothyroidism PAST SURGICAL HISTORY Procedure Laterality Date BALLN ANGIOPLASTY OPEN,FEM-POP COLONOSCOPY FLX DX W/COLLJ SPEC WHEN PFRMD 09/23/2007 Colonoscopy ESOPHAGOGASTRODUODENOSCOPY TRANSORAL DIAGNOSTIC 09/23/2007 EGD PAST SURGICAL HISTORY OF 2005-? Laser Treatments Both Eyes (Ongoing) PERC TRANSL COR ANGIO Percutaneous Transluminal Coronary Angio Status POST-CATARACT LASER SURGERY Right 11/11/2023 Dr. Fermin PHELPS CATARACT EXTRACAP,INSERT LENS Bilateral RMVL LENS MATERIAL PHACOFRAGMENTATION ASPIR os 01/09/2011 Cataract Extraction STENT PLACEMENT 06/01/1995 with HI VITRECTOMY MECHANICAL PARS PLANA os 01/09/2011 [place] Vitrectomy WRIST SPLINT carpal tunnel on R Current Outpatient Medications Medication Sig lisinopril (ZESTRIL) 20 mg tablet Take 20 mg by mouth once daily. aspirin, enteric coated (ASPIRIN, ENTERIC COATED) 81 mg EC tablet Take 1 tablet by mouth once daily. carvedilol (COREG) 3.125 mg tablet Take 3.125 mg by mouth two times a day with meals. levothyroxine (SYNTHROID) 75 mcg tablet Take 1 tablet by mouth every afternoon. HYDROcodone-Acetaminophen (NORCO) 10-325 mg per tablet Take 1 tablet by mouth every 12 hours. ZINC PICOLINATE ORAL Take 50 mg by mouth once daily. ferrous bis-glycinate chelate (IRON BISGLYCINATE CHELATE ORAL) Take 18 mg by mouth once daily. MAGNESIUM GLYCINATE ORAL Take 500 mg by mouth once daily. Ascorbic Acid (VITAMIN C) 1,000 mg tablet Take 1,000 mg by mouth once daily. Selenium 100 mcg tab Take 100 mcg by mouth once daily. cholecalciferol, vitamin D3, (VITAMIN D3 ORAL) Take 250 mcg by mouth once daily. Biotin 10,000 mcg cap Take 10,000 mcg by mouth once daily. melatonin 12 mg tab Take 12 mg by mouth daily at bedtime. vitamin b complex (B-COMPLEX) tab Take 1 tablet by mouth once daily. VITAMIN K2 100 MCG CAPSULE ubidecarenone/vitamin E mixed (COQ10 SG 100 ORAL) Take 100 mg by mouth once daily. vits A,C,E/lutein/minerals (HEALTHY EYES ORAL) Take by mouth. gabapentin (NEURONTIN) 100 mg capsule Take 1 capsule by mouth three times a day for 30 days. traZODone (DESYREL) 50 mg tablet Take 1 tablet by mouth at bedtim (more content not included)...[facility]03-19-2025 History of Present illness Narrative* Adriel Solis MD - 08/17/2024 8:35 PM EDT HISTORY AND PHYSICAL Zoraida Flores Pranay 1950 REFERRING PHYSICIAN: Self CHIEF COMPLAINT: Consult HPI: Meeta is a 73-year-old female with a history of diabetes mellitus, PVD, and CAD, presenting witha bulge and discomfort at a prior transverse RUQ incision site. Meeta reports a bulge and discomfort along the medial aspect of a prior transverse RUQ incision, withexacerbation during lifting and coughing. She was initially evaluated 2 years ago for similar complaints, at which time a CT scan was discussed. She notes that the hernia appears to be enlarging. She has a history of diabetes mellitus, for which she is currently taking 27 units of Tresiba dailyand Fiasp as needed. She reports that her blood glucose levels are "out of whack" and is preparing to start using an insulin pump. She also has a history of PVD and underwent bilateral peripheral stent placements approximately 2 years ago. She is a current smoker, consuming half a pack of cigarettes per day, but is attempting to quit. Meeta has a history of CAD and experienced worsening angina in November of last year. She underwent a cardiac catheterization, which revealed a 70% LAD lesion, an 80% circumflex lesion, and a totally occluded RCA. She subsequently underwent revascularization surgery in December of last year at [facility]. Her postoperative course was complicated by renal failure, requiring dialysis. She reports that her renal function has since improved, with recent blood work in June showing good results. She is scheduled for a follow-up appointment with her marketing proposal specialist next month. She denies any current chest pain or discomfort and was last seen by her hatch tender in June, who reportedly found noissues. She is currently taking aspirin and Coreg. She also has a history of a ruptured appendix, for which she has a large scar. She denies any sensation of a lower abdominal hernia. The patient is being seen by me today at the request of Dr. Sandy Braswell MD for my opinion and advice regarding incisional hernia increasing in size. PAST MEDICAL HISTORY Diagnosis Date Atherosclerosis Cataract both eyes Degenerative disc disease Depression Diabetes mellitus (HCC) Essential hypertension, benign Hemorrhage of gastrointestinal tract, unspecified Impaired circulation of left leg both legs Neuropathy Other acute and subacute form of ischemic heart disease 06/01/1995 Other and unspecified hyperlipidemia Other specified disorders of pancreatic internal secretion PDR (proliferative diabetic retinopathy) (HCC) Pseudophakia of left eye Sleep apnea Unspecified hypothyroidism PAST SURGICAL HISTORY Procedure Laterality Date BALLN ANGIOPLASTY OPEN,FEM-POP COLONOSCOPY FLX DX W/COLLJ SPEC WHEN PFRMD 09/23/2007 Colonoscopy ESOPHAGOGASTRODUODENOSCOPY TRANSORAL DIAGNOSTIC 09/23/2007 EGD PAST SURGICAL HISTORY OF 2004-? Laser Treatments Both Eyes (Ongoing) PERC TRANSL COR ANGIO Percutaneous Transluminal Coronary Angio Status POST-CATARACT LASER SURGERY Right 11/11/2023 Dr. Christensen REMMellissa CATARACT EXTRACAP,INSERT LENS Bilateral RMVL LENS MATERIAL PHACOFRAGMENTATION ASPIR os 01/09/2011 Cataract Extraction STENT PLACEMENT 06/01/1995 with HI VITRECTOMY MECHANICAL PARS PLANA os 01/09/2011 [place] Vitrectomy WRIST SPLINT carpal tunnel on R Current Outpatient Medications Medication Sig lisinopril (ZESTRIL) 20 mg tablet Take 20 mg by mouth once daily. aspirin, enteric coated (ASPIRIN, ENTERIC COATED) 81 mg EC tablet Take 1 tablet by mouth once daily. carvedilol (COREG) 3.125 mg tablet Take 3.125 mg by mouth two times a day with meals. levothyroxine (SYNTHROID) 75 mcg tablet Take 1 tablet by mouth every afternoon. HYDROcodone-Acetaminophen (NORCO) 10-325 mg per tablet Take 1 tablet by mouth every 12 hours. ZINC PICOLINATE ORAL Take 50 mg by mouth once daily. ferrous bis-glycinate chelate (IRON BISGLYCINATE CHELATE ORAL) Take 18 mg by mouth once daily. MAGNESIUM GLYCINATE ORAL Take 500 mg by mouth once daily. Ascorbic Acid (VITAMIN C) 1,000 mg tablet Take 1,000 mg by mouth once daily. Selenium 100 mcg tab Take 100 mcg by mouth once daily. cholecalciferol, vitamin D3, (VITAMIN D3 ORAL) Take 250 mcg by mouth once daily. Biotin 10,000 mcg cap Take 10,000 mcg by mouth once daily. melatonin 12 mg tab Take 12 mg by mouth daily at bedtime. vitamin b complex (B-COMPLEX) tab Take 1 tablet by mouth once daily. VITAMIN K2 100 MCG CAPSULE ubidecarenone/vitamin E mixed (COQ10 SG 100 ORAL) Take 100 mg by mouth once daily. vits A,C,E/lutein/minerals (HEALTHY EYES ORAL) Take by mouth. gabapentin (NEURONTIN) 100 mg capsule Take 1 capsule by mouth three times a day for 30 days. traZODone (DESYREL) 50 mg tablet Take 1 tablet by mouth at bedtime as needed. rosuvastatin (CRESTOR) 40 mg tablet Take 1 tablet by mouth once daily. nitroglycerin sublingual (NITROQUICK) 0.4 mg SL tablet Dissolve 1 tablet under the tongue as needed. DISSOLVE ON TONGUE FOR CHEST PAIN. IF NO PAIN RELIEF, CALL 911 citalopram (CELEXA) 40 mg tablet Take 1 tablet by mouth once daily. pantoprazole DR (PROTONIX) 40 mg tablet Take 1 tablet by mouth once daily. BD INSULIN SYRINGE ULTRA-FINE 0.3 mL 31 gauge x 5/16" once daily. insulin glargine (LANTUS U-100 INSULIN) 100 unit/mL injection Inject [address] Palumbo FIASP FLEXTOUCH U-100 INSULIN 100 unit/mL (3 mL) pen Inject as directed: small meal 5-6units; medium meal 6-7 units; large meal 8-[address] Palumbo. albuterol HFA (VENTOLIN HFA) 90 mcg/actuation inhaler Inhale 2 Puffs as instructed every 4 hours asneeded for wheezing/shortness of breath. PEG 400-propylene glycol (SYSTANE ULTRA) 0.4-0.3 % ophthalmic solution Use 1 Drop in both eyes every 2 hours while awake. Insulin Syringe-Needle U-100 (ULTRA FINE INSULIN) 1 mL 30 x 1/2" syrg use 5 times a day as directed. POLYVINYL ALCOHOL (20/20 ARTIFICIAL TEARS OPHTHALMIC) Use in eyes as needed. blood sugar diagnostic test strip Test blood sugars five times daily enteric contrast (will be provided with radiology test) Take 1 Each by mouth one time only for [address] ABD/PEL WO Routine order Administer, As Directed One Time Only, via Oral, Rectal, both Oral and Rectal, Enteric Tube, Stoma or Indwelling Catheter, Enteric Contrast as designated per enteric contrast guidelines No current facility-administered medications for this visit. ALLERGIES: Patient has no known allergies. PERSONAL HISTORY: Social History Tobacco Use Smoking status: Former Average packs/day: 1 pack/day for 20.0 years (20.0 ttl pk-yrs) Types: Cigarettes Start date: 01/22/2024 Smokeless tobacco: Never Tobacco comments: Quit 01/22/2024 Vaping Use Vaping status: Never Used Substance Use Topics Alcohol use: No Drug use: No FAMILY HISTORY: FAMILY HISTORY Problem Relation Age of Onset Lipids Mother Allergies Mother Arthritis Mother Breast Cancer Mother Cancer Mother stomach COPD Mother Hypertension Mother Thyroid Mother Psychiatry Mother depression Cataract Mother Diabetes Father Prostate Lipids Father Allergies Father Cancer Father stomach Prostate Cancer Father Hypertension Father Stroke Father Thyroid Sister Allergies Sister Cervical Cancer Sister Hypertension Brother Allergies Brother Diabetes Maternal Uncle REVIEW OF SYMPTOMS: The review of systems data was entered by the nurse and reviewed by me There are no exam notes on file for this visit. PHYSICAL EXAMINATION: General: The patient is 73 year old female, well nourished, well hydrated in no acute distress. Thepatient is oriented to time, place, and person. VITALS: Blood pressure 135/66, pulse 70, weight 58.1 kg (128 lb), SpO2 99%. HEENT: Normal cephalic, ataumatic, pupils are equally round, sclera are anicteric, mucous membranesare moist, oropharynx is clear. Neck has no masses, asymmetry or lymphadenopathy. Thyroid is unremarkable. Respiratory: Clear to auscultation and percussion. Normal respiratory excursion and pattern. Cardiac: Examination is regular rate and rhythm. Abdominal exam: Soft, nontender, with no palpable masses. No hepatosplenomegaly. Sternal incision healing well; three chest tube sites noted; palpable hernia defect approximately 8 cm below xiphoid process, bulges with cough, measuring approximately 5 x 4 cm; umbilical hernia palpable, approximately 1 cm, bulges with cough. Rectal exam: exam deferred Extremities: no clubbing, cyanosis or edema. No adenopathy. Other: LABORATORY VALUES: As Noted RADIOLOGIC STUDIES: As Noted Tests: - Cardiac catheterization: 70% left anterior descending artery lesion, 80% circumflex artery lesion, total occlusion of the right coronary artery Imaging: (08/2022) CT abdomen: Incisional hernia identified approximately 8 cm below the xiphoid and a second smaller defect at the umbilicus Assessment IMPRESSION: PLAN: 1. Incisional hernia, without obstruction or gangrene (K43.2) - Hernia located approximately 8 cm below the xiphoid with a secondary defect at the umbilicus; primary defect measures approximately 5x4 cm, secondary defect approximately 1 cm. - Ordered repeat CT scan to assess for potential additional hernias and evaluate current size of known defects. - Plan for laparoscopic repair with mesh placement; two smaller pieces of mesh likely required due to separation of defects. - Will obtain cardiology and nephrology records to ensure patient is medically optimized for surgery. 2. Type 2 diabetes mellitus with hyperglycemia, with long-term current use of insulin (HCC) (E11.65) - Blood glucose levels are poorly controlled; patient is on insulin therapy,- Patient is in the process of transitioning to insulin pump therapy. 3. Peripheral vascular disease (HCC) (I73.9) - Bilateral lower extremity stents placed; patient is on antiplatelet therapy with aspirin. - Continue current management and follow-up with vascular surgery as needed. 4. Presence of coronary angioplasty implant and graft (Z95.5) - Coronary artery bypass grafting performed in December of last year due to significant coronary artery disease (70% LAD lesion, 80% circumflex lesion, and total occlusion of RCA). - Patient is on aspirin and carvedilol (Coreg) for cardiac management. - No current angina or cardiac symptoms; last cardiology follow-up in June was unremarkable. - Will obtain cardiology records to ensure patient is stable for hernia repair surgery. 5. Chronic kidney disease, stage 1 (N18.1) - Acute kidney injury requiring dialysis post-CABG; currently stable with recent nephrology follow-up in June showing normal lab results. - Next nephrology appointment scheduled for next month. - Will obtain nephrology records to ensure renal function is stable prior to surgical intervention. Diagnoses: (K43.2) Incisional hernia, without obstruction or gangrene (E11.65, Z79.4) Type 2 diabetes mellitus with hyperglycemia, with long-term current use of insulin (HCC) (I73.9) Peripheral vascular disease (HCC) (Z95.5) Presence of coronary angioplasty implant and graft (N18.1) Chronic kidney disease, stage 1 My findings have been communicated to Dr. Sandy Braswell MD via shared medical record. This note will be forwarded to Dr. Sandy Braswell MD. Return to Clinic: The patient is instructed to follow-up with me after the testing has been completed. Adriel Solis MD documented in this encounterK[facility]03-[facility]-2025 Instructions* Patient Instructions* Sandy Braswell MD - 08/03/2024 3:34 PM EST BONE MINERAL DENSITY PATIENT INSTRUCTIONS Bone mineral density testing measures the amount of calcium in certain parts of your bones. This information determines how strong your bones are. The test is used to detect osteoporosis, a disease in which the bone's mineral content and density are low, increasing a person's risk of fractures. Thelumbar spine (lower back) and the hip are the skeletal sites usually examined. For the test, remember that: 1. You cannot take this test if you are . 2. Eat a normal diet on the day of the test. 3. Take your medications as you normally would. 4. DO NOT take calcium supplements (such as Tums) for 24 hours before the test. 5. On the day of the test, leave valuables (jewelry or credit cards) at home. 6. The test should be performed prior to oral, rectal or IV contrast studies, or at least 7 days after any of these studies. For the test, you may be asked to wear a hospital gown. You will lie on your back, on a padded table, in a comfortable position. Generally, you can resume your usual activities immediately. documented in this encounterK[facility]03-[facility]-2025 NoteHNO ID: [id number] Author: SANDY BRASWELL MD Service: ? Author Type: Physician Type: Progress Notes Filed: 08/03/2024 15:42 Note Text: Patient presents with: 6 Month Exam HPI: Patient presents today for office visit for routine 6 month follow up. No chest pain or shortness of breath of breath. No edema. No falls Still seeing Dr Palumbo endo, Dr Hollis, nephrology., [place], [place]. A1c was just 7.4. Thyroid recently checked and was good. Due to follow up with lung cancer screening clinic. Sees Dr Solis soon. Discussed she can talk with him about her colonoscopy. Had CABG in December at [facility]. Has seen cardiology since but we have no records. Doing well. Will try and obtain those. Has had labs done in the last six months for all of her issues. Has not been back to see anyone for her back. Note was copied and pasted, without alteration from:HPI of last ov in 2023: Medication reconciled. Follows with Endocrinology for her sugars. Dr. Palumbo. They are following with her thyroid as well. Has continuous glucose monitor. A1c 10/21/23 8.0 Had wound culture done on 12/09/23 of left knee. Woke up on 12/07/23 with swelling to left knee cap. Noticed her pants were all wet and saw that the abscess had broke open. Currently taking Amoxicillin 875 mg BID. Knee is looking better. Seen at urgent. Was to follow with ortho. Encouraged. Is looking much better. Was red and warm. No fever. One culture is growing a meth resistant staph. Follows with Nephrology. Dr. Hollis. Recently taken off HCTZ and started on spironolactone. HTN: Monitors BP occ. Chest pain after exertion. Cardiology is aware. Has not changed. Shortness of breath with exertion. Follows with Cardiology. Dr. Wood. Having heart cath scheduled 12/22/23. Denies palpitations Denies syncope Denies edema She has been seeing Dr Nielsen. Will be seeing Dr Cuello. Emotionally is doing well. Has had recent labs at [facility]. Needs mammogram order sent to [facility]. Note was copied and pasted, without alteration from: last ov Still seeing Dr. Palumbo. Just saw her on Thursday. Sugars have been relatively. Last a1c was 7.1 Still continue to have back pain. Saw Dr. Nielsen, spine med, who felt there was nothing he could do for her spine. It is inoperable. She has still not gotten into pain management. Reinforced need to do so. She would like to see Dr Winkler. Will repeat controlled substance agreement and do tox screen. She had requested ambien. Again discussed that we should not use it with the hydrocodone. No chest pain No dyspnea. Still seeing cardiology. Bp is stable. Still some stress with her home situation. Had her lung cancer screening. She will verify with her hospital in [facility] when her last colonoscopy. MEDICATIONS: Current Outpatient Medications Medication Sig lisinopril (ZESTRIL) 20 mg tablet Take 20 mg by mouth once daily. aspirin, enteric coated (ASPIRIN, ENTERIC COATED) 81 mg EC tablet Take 1 tablet by mouth once daily. carvedilol (COREG) 3.125 mg tablet Take 3.125 mg by mouth two times a day with meals. levothyroxine (SYNTHROID) 75 mcg tablet Take 1 tablet by mouth every afternoon. HYDROcodone-Acetaminophen (NORCO) 10-325 mg per tablet Take 1 tablet by mouth every 12 hours. ZINC PICOLINATE ORAL Take 50 mg by mouth once daily. ferrous bis-glycinate chelate (IRON BISGLYCINATE CHELATE ORAL) Take 18 mg by mouth once daily. MAGNESIUM GLYCINATE ORAL Take 500 mg by mouth once daily. Ascorbic Acid (VITAMIN C) 1,000 mg tablet Take 1,000 mg by mouth once daily. Selenium 100 mcg tab Take 100 mcg by mouth once daily. cholecalciferol, vitamin D3, (VITAMIN D3 ORAL) Take 250 mcg by mouth once daily. Biotin 10,000 mcg cap Take 10,000 mcg by mouth once daily. melatonin 12 mg tab Take 12 mg by mouth daily at bedtime. vitamin b complex (B-COMPLEX) tab Take 1 tablet by mouth once daily. VITAMIN K2 100 MCG CAPSULE ubidecarenone/vitamin E mixed (COQ10 SG 100 ORAL) Take 100 mg by mouth once daily. vits A,C,E/lutein/minerals (HEALTHY EYES ORAL) Take by mouth. gabapentin (NEURONTIN) 100 mg capsule Take 1 capsule by mouth three times a day for 30 days. traZODone (DESYREL) 50 mg tablet Take 1 tablet by mouth at bedtime as needed. rosuvastatin (CRESTOR) 40 mg tablet Take 1 tablet by mouth once daily. nitroglycerin sublingual (NITROQUICK) 0.4 mg SL tablet Dissolve 1 tablet under the tongue as needed. DISSOLVE ON TONGUE FOR CHEST PAIN. IF NO PAIN RELIEF, CALL 911 citalopram (CELEXA) 40 mg tablet Take 1 tablet by mouth once daily. pantoprazole DR (PROTONIX) 40 mg tablet Take 1 tablet by mouth once daily. BD INSULIN SYRINGE ULTRA-FINE 0.3 mL 31 gauge x 5/16" once daily. insulin glargine (LANTUS U-100 INSULIN) 100 unit/mL injection Inject [address] Palumbo FIASP FLEXTOUCH U-100 INSULIN 100 unit/mL (3 mL) pen Inject as directed: small meal 5-6units; medium meal 6-7 units; large meal 8-10 units. Pe (more content not included)...[facility]03-05-2025 History of Present illness Narrative* Sandy Braswell MD - 08/03/2024 3:11 PM EST Patient presents with: 6 Month Exam HPI: Patient presents today for office visit for routine 6 month follow up. No chest pain or shortness of breath of breath. No edema. No falls Still seeing viktoriya Rivera, Dr Hollis, nephrology., [facility]. A1c was just 7.4. Thyroid recently checked and was good. Due to follow up with lung cancer screening clinic. Sees Dr Solis soon. Discussed she can talk with him about her colonoscopy. Had CABG in December at [facility]. Has seen cardiology since but we have no records. Doing well. Will try and obtain those. Has had labs done in the last six months for all of her issues. Has not been back to see anyone for her back. Note was copied and pasted, without alteration from:HPI of last ov in 2023: Medication reconciled. Follows with Endocrinology for her sugars. Dr. Palumbo. They are following with her thyroid as well. Has continuous glucose monitor. A1c 10/21/23 8.0 Had wound culture done on 12/09/23 of left knee. Woke up on 12/07/23 with swelling to left knee cap. Noticed her pants were all wet and saw that the abscess had broke open. Currently taking Amoxicillin 875 mg BID. Knee is looking better. Seen at urgent. Was to follow with ortho. Encouraged. Is looking much better. Was red and warm. No fever. One culture is growing a meth resistant staph. Follows with Nephrology. Dr. Hollis. Recently taken off HCTZ and started on spironolactone. HTN: Monitors BP occ. Chest pain after exertion. Cardiology is aware. Has not changed. Shortness of breath with exertion. Follows with Cardiology. Dr. Wood. Having heart cath scheduled 12/22/23. Denies palpitations Denies syncope Denies edema She has been seeing Dr Nielsen. Will be seeing Dr Cuello. Emotionally is doing well. Has had recent labs at [facility]. Needs mammogram order sent to [facility]. Note was copied and pasted, without alteration from: last ov Still seeing Dr. Palumbo. Just saw her on Thursday. Sugars have been relatively. Last a1c was 7.1 Still continue to have back pain. Saw Dr. Nielsen, spine med, who felt there was nothing he could dofor her spine. It is inoperable. She has still not gotten into pain management. Reinforced need to do so. She would like to see Dr Winkler. Will repeat controlled substance agreement and do tox screen. She had requested ambien. Again discussed that we should not use it with the hydrocodone. No chest pain No dyspnea. Still seeing cardiology. Bp is stable. Still some stress with her home situation. Had her lung cancer screening. She will verify with her hospital in [facility] when her last colonoscopy. MEDICATIONS: Current Outpatient Medications Medication Sig lisinopril (ZESTRIL) 20 mg tablet Take 20 mg by mouth once daily. aspirin, enteric coated (ASPIRIN, ENTERIC COATED) 81 mg EC tablet Take 1 tablet by mouth once daily. carvedilol (COREG) 3.125 mg tablet Take 3.125 mg by mouth two times a day with meals. levothyroxine (SYNTHROID) 75 mcg tablet Take 1 tablet by mouth every afternoon. HYDROcodone-Acetaminophen (NORCO) 10-325 mg per tablet Take 1 tablet by mouth every 12 hours. ZINC PICOLINATE ORAL Take 50 mg by mouth once daily. ferrous bis-glycinate chelate (IRON BISGLYCINATE CHELATE ORAL) Take 18 mg by mouth once daily. MAGNESIUM GLYCINATE ORAL Take 500 mg by mouth once daily. Ascorbic Acid (VITAMIN C) 1,000 mg tablet Take 1,000 mg by mouth once daily. Selenium 100 mcg tab Take 100 mcg by mouth once daily. cholecalciferol, vitamin D3, (VITAMIN D3 ORAL) Take 250 mcg by mouth once daily. Biotin 10,000 mcg cap Take 10,000 mcg by mouth once daily. melatonin 12 mg tab Take 12 mg by mouth daily at bedtime. vitamin b complex (B-COMPLEX) tab Take 1 tablet by mouth once daily. VITAMIN K2 100 MCG CAPSULE ubidecarenone/vitamin E mixed (COQ10 SG 100 ORAL) Take 100 mg by mouth once daily. vits A,C,E/lutein/minerals (HEALTHY EYES ORAL) Take by mouth. gabapentin (NEURONTIN) 100 mg capsule Take 1 capsule by mouth three times a day for 30 days. traZODone (DESYREL) 50 mg tablet Take 1 tablet by mouth at bedtime as needed. rosuvastatin (CRESTOR) 40 mg tablet Take 1 tablet by mouth once daily. nitroglycerin sublingual (NITROQUICK) 0.4 mg SL tablet Dissolve 1 tablet under the tongue as needed. DISSOLVE ON TONGUE FOR CHEST PAIN. IF NO PAIN RELIEF, CALL 911 citalopram (CELEXA) 40 mg tablet Take 1 tablet by mouth once daily. pantoprazole DR (PROTONIX) 40 mg tablet Take 1 tablet by mouth once daily. BD INSULIN SYRINGE ULTRA-FINE 0.3 mL 31 gauge x 5/16" once daily. insulin glargine (LANTUS U-100 INSULIN) 100 unit/mL injection Inject [address] King FERGUSON FLEXTOUCH U-100 INSULIN 100 unit/mL (3 mL) pen Inject as directed: small meal 5-6units; medium meal 6-7 units; large meal 8-[address] Palumbo. albuterol HFA (VENTOLIN HFA) 90 mcg/actuation inhaler Inhale 2 Puffs as instructed every 4 hours asneeded for wheezing/shortness of breath. PEG 400-propylene glycol (SYSTANE ULTRA) 0.4-0.3 % ophthalmic solution Use 1 Drop in both eyes every 2 hours while awake. Insulin Syringe-Needle U-100 (ULTRA FINE INSULIN) 1 mL 30 x 1/2" syrg use 5 times a day as directed. POLYVINYL ALCOHOL (20/20 ARTIFICIAL TEARS OPHTHALMIC) Use in eyes as needed. blood sugar diagnostic test strip Test blood sugars five times daily No current facility-administered medications for this visit. ALLERGIES: ALLERGIES No Known Allergies PAST MEDICAL HISTORY Diagnosis Date Atherosclerosis Cataract both eyes Degenerative disc disease Depression Diabetes mellitus (HCC) Essential hypertension, benign Hemorrhage of gastrointestinal tract, unspecified Impaired circulation of left leg both legs Neuropathy Other acute and subacute form of ischemic heart disease 06/01/1995 Other and unspecified hyperlipidemia Other specified disorders of pancreatic internal secretion PDR (proliferative diabetic retinopathy) (HCC) Pseudophakia of left eye Sleep apnea Unspecified hypothyroidism PAST SURGICAL HISTORY Procedure Laterality Date BALLN ANGIOPLASTY OPEN,FEM-POP COLONOSCOPY FLX DX W/COLLJ SPEC WHEN PFRMD 09/23/2007 Colonoscopy ESOPHAGOGASTRODUODENOSCOPY TRANSORAL DIAGNOSTIC 09/23/2007 EGD PAST SURGICAL HISTORY OF 2004-? Laser Treatments Both Eyes (Ongoing) PERC TRANSL COR ANGIO Percutaneous Transluminal Coronary Angio Status POST-CATARACT LASER SURGERY Right 11/11/2023 Dr. Christensen REMV CATARACT EXTRACAP,INSERT LENS Bilateral RMVL LENS MATERIAL PHACOFRAGMENTATION ASPIR os 01/09/2011 Cataract Extraction STENT PLACEMENT 06/01/1995 with HI VITRECTOMY MECHANICAL PARS PLANA os 01/09/2011 [place] Vitrectomy WRIST SPLINT carpal tunnel on R FAMILY HISTORY Problem Relation Age of Onset Lipids Mother Allergies Mother Arthritis Mother Breast Cancer Mother Cancer Mother stomach COPD Mother Hypertension Mother Thyroid Mother Psychiatry Mother depression Cataract Mother Diabetes Father Prostate Lipids Father Allergies Father Cancer Father stomach Prostate Cancer Father Hypertension Father Stroke Father Thyroid Sister Allergies Sister Cervical Cancer Sister Hypertension Brother Allergies Brother Diabetes Maternal Uncle Social History Tobacco Use Smoking status: Every Day Current packs/day: 1.00 Average packs/day: 1 pack/day for 20.0 years (20.0 ttl pk-yrs) Types: Cigarettes Smokeless tobacco: Never Tobacco comments: Down to about 1/2 a pack a day Vaping Use Vaping status: Never Used Substance Use Topics Alcohol use: No Drug use: No Reviewed current medications, allergies, past medical history, surgical history, family history andsocial history today. REVIEW OF SYSTEMS All other reviewed and negative other than HPI. HEALTH MAINTENANCE: Reviewed health maintenance issues today and recommended the following in detail. Colorectal Cancer Screening due on 09/22/2017 Diabetic Foot Exam due on 01/31/2023 BP Controlled (<130/80) due on 03/07/2023 Bone Density Screening due on 11/16/2023 Mammogram Screening due on 11/27/2023 Lung Cancer Screening due on 01/07/2024 Serum Creatinine due on 01/21/2024 Hemoglobin/Hematocrit due on 01/21/2024 Influenza Vaccine(1) due on 01/31/2024 HbA1C due on 04/22/2024 Advance Directive Discussion due on 06/01/2024 VITALS: BP 104/50 Pulse 65 Ht 152.4 cm (5') Wt 58.1 kg (128 lb) SpO2 97% BMI 25.00 kg/m Last 4 Encounter Wt Readings: Date: Wt: 08/03/2024 58.1 kg (128 lb) 12/14/2023 60.8 kg (134 lb) 01/20/2023 61.2 kg (135 lb) 09/19/2022 59.9 kg (132 lb) PHYSICAL EXAMINATION: General appearance: Well appearing, alert, in no acute distress, well-hydrated, well nourished. Skin: Skin color, texture, turgor normal, no suspicious rashes or lesions Head: Normocephalic, no masses, lesions, tenderness or abnormalities Eyes: Anicteric sclera. Pupils are equally round and reactive to light. Extraocular movements are intact. Lungs: Lungs clear to auscultation. No wheezing, rhonchi, rales Heart: RRR without murmur, gallop, or rubs. No ectopy Abdomen: Normal abdominal exam, Abdomen soft, non-tender. Bowel sounds normal. No masses, organomegaly Extremities: No deformities, edema, skin discoloration, clubbing or cyanosis. Good capillary refill. Musculoskeletal: No joint swelling, deformity, or tenderness Feet:Shoes and socks removed, No deformities, ulcers, calluses, normal distal pulses, and sensitiveto 10 gm monofilament ASSESSMENT/PLAN: 1. 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) - ICD9: 250.61, 357.2, ICD10: E10.40 (primary diagnosis) - per endo. A1c is stable. 2. Coronary artery disease involving [place] heart without angina pectoris, unspecified vessel or lesion type - ICD9: 414.01, ICD10: I25.10 - continue to see cardiology 3. Primary hypertension - ICD9: 401.9, ICD10: I10 - Controlled - Continue current medications 4. Hyperlipidemia, unspecified hyperlipidemia type - ICD9: 272.4, ICD10: E78.5 - Controlled - Continue current medications 5. Obstructive sleep apnea - ICD9: 327.23, ICD10: G47.33 - does not treat 6. Chronic obstructive pulmonary disease, unspecified COPD type (HCC) - ICD9: 496, ICD10: J44.9 - is stable. 7. Gastroesophageal reflux disease without esophagitis - ICD9: 530.81, ICD10: K21.9 - doing well. 8. Stage 3 chronic kidney disease, unspecified whether stage 3a or 3b CKD (HCC) - ICD9: 585.3, ICD10: N18.30 - stable. Per Dr Hollis 9. Hypothyroidism, unspecified type - ICD9: 244.9, ICD10: E03.9 - per endo. 10. 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 11. Depression, unspecified depression type - ICD9: 311, ICD10: F32.A - overall feels she is doing well. 12. Generalized anxiety disorder - ICD9: 300.02, ICD10: F41.1 - overall doing well 13. Encounter for screening mammogram for malignant neoplasm of breast - ICD9: V76.12, ICD10: Z12.31 - ABEBE SCREENING W REDDY 14. Screening for lung cancer - ICD9: V76.0, ICD10: Z12.2 - CONSULT LUNG CANCER SCREENING CLINIC 15. Asymptomatic postmenopausal status - ICD9: V49.81, ICD10: Z78.0 - DXA-AXIAL SKELETON - BD DXA TRABECULAR BONE SCORE (TBS) Sandy Braswell MD documented [facility] Telephone encounter Note * Telephone Encounter - Flaca Fischer APRN.CNP - 07/08/2024 5:16 PM EST OARRS checked and confirmed been taking 100 mg TID. Will go ahead and refill for a month. Script sent. Flaca Fischer APRN.FELA [facility] Work Phone: 1(467) 780-709402-07-2025 Miscellaneous Notes* Telephone Encounter - Flaca Fischer APRN.CNP - 07/08/2024 5:16 PM EST OARRS checked and confirmed been taking 100 mg TID. Will go ahead and refill for a month. Script sent. Flaca Fischer APRN.FELA * Telephone Encounter - Juana Hansen RN - 07/07/2024 11:50 AM EST Patient calling to request a refill, but of a decreased strength. Patient requesting refill of gabapentin 100 mg three times a day. Pt was on gabapentin 800 mg 2 times a day but states it was decreased by [facility] after her open heart surgery in December 2023. Patient has appt with Dr. Braswell on 08/03/24. Pt asking if can have refill to last at least until she sees Dr. Braswell. Pended, as requested. No call back needed to patient if agreeable to send as requested. Juana Hansen RN documented in this encounterK[facility]02-06-2025 Telephone encounter Note * Telephone Encounter - Juana Hansen RN - 07/07/2024 11:50 AM EST Patient calling to request a refill, but of a decreased strength. Patient requesting refill of gabapentin 100 mg three times a day. Pt was on gabapentin 800 mg 2 times a day but states it was decreased by [facility] after her open heart surgery in December 2023. Patient has appt with Dr. Barswell on 08/03/24. Pt asking if can have refill to last at least until she sees Dr. Braswell. Pended, as requested. No call back needed to patient if agreeable to send as requested. Juana Hansen RN [facility]01-17-2025 Telephone encounter Note* Telephone Encounter - Renetta Sosa LPN - 06/17/2024 11:21 AM EST Prescription Refill Information The patient has been identified by name and date of : Yes Caregiver verified no other encounters exist for this prescription request: Yes Caregiver confirmed with patient/requestor that no other refills are due, in the near future, with this provider at this time: Yes The last office visit in the department: 12/14/23 Does the patient have a future office visit with this provider/department: Yes Requested Prescriptions Pending Prescriptions Disp Refills traZODone (DESYREL) 50 mg tablet 90 tablet 0 Sig: Take 1 tablet by mouth at bedtime as needed. Renetta Sosa LPN June 17, 2024 11:21 AM [facility]01-17-2025 Miscellaneous Notes* Telephone Encounter - Renetta Sosa LPN - 06/17/2024 11:21 AM EST Prescription Refill Information The patient has been identified by name and date of : Yes Caregiver verified no other encounters exist for this prescription request: Yes Caregiver confirmed with patient/requestor that no other refills are due, in the near future, with this provider at this time: Yes The last office visit in the department: 12/14/23 Does the patient have a future office visit with this provider/department: Yes Requested Prescriptions Pending Prescriptions Disp Refills traZODone (DESYREL) 50 mg tablet 90 tablet 0 Sig: Take 1 tablet by mouth at bedtime as needed. Renetta Sosa LPN June 17, 2024 11:21 AM documented in this encounterK[facility]01-13-2025 Evaluation note* Diagnosis Onset Date Resolution Status Admit Date Chronic kidney disease chronic [facility] 2024 11:24am Essential hypertension chronic [facility] 2024 11:24am Hypothyroidism chronic June 132024 11:24am Mixed hyperlipidemia chronic Constantin jennifer 2024 11:24am Overweight chronic June 13, 2024 11:24am Type 1 diabetes mellitus wit h hyperglycemia chronic June 13 11:24am [facility] Work Phone: 1(827) 366-109810-30-2024 Telephone encounter Note* Telephone Encounter - Sandy Braswell MD - 03/30/2024 8:38 AM EDT Set up with [facility]. [facility]10-30-2024 Miscellaneous Notes* Telephone Encounter - Sandy Braswell MD - 03/30/2024 8:38 AM EDT Set up with [facility]. * Telephone Encounter - Nina Smions LPN - 03/30/2024 8:30 AM EDT Patient did not have CT completed in 2023 at [facility]. She had one completed 01/06/23 that is scanned intochart done at [facility] that recommends repeat in 1 year. Looks like was ordered by [facility] provider that runs clinic for this. No upcoming visit here until 06/15/24. * Telephone Encounter - Carlee Miranda MA - 03/28/2024 12:09 PM EDT Asked additional question to pt due to uncertain what she's requesting. Wait pt response. Carlee Miranda MA documented in this encounterK[facility]10-30-2024 Telephone encounter Note * Telephone Encounter - Nina Simons LPN - 03/30/2024 8:30 AM EDT Patient did not have CT completed in 2023 at [facility]. She had one completed 01/06/23 that is scanned intochart done at [facility] that recommends repeat in 1 year. Looks like was ordered by [place] provider that runs clinic for this. No upcoming visit here until 06/15/24. [facility]10-28-2024 Telephone encounter Note* Telephone Encounter - Carlee Miranda MA - 03/28/2024 12:09 PM EDT Asked additional question to pt due to uncertain what she's requesting. Wait pt response. Carlee Miranda MA [facility]10-15-2024 NoteHNO ID: [id number] Author: ?, ?, ? Service: ? Author Type: ? Type: Progress Notes Filed: 03/15/2024 14:59 Note Text: Zoraida Pires is identified through a medication adherence outreach initiative based on pharmacy claims data from [employer] (insurer) for Statin medication(s). Patient is reviewed 03/15/24 due to medication adherence concerns with the following medications (name, strength, sig): Rosuvastatin 40 mg 1 tablet every day . Per data/report, last fill date and days supply: Due 03/13/2024 Per reconcile dispense, last fill date and days supply: 03/13/2024 for 90 days Per call to pharmacy, last picked up date and days supply: NA Outcome of review/outreach: (choose outcome source and status) - Filled within 7 days of Next fill date per reconcile dispense [facility] History of Present illness Narrative* Violet Urrutia - 03/15/2024 2:58 PM EDT Zoraida Pires is identified through a medication adherence outreach initiative based on pharmacy claims data from [employer] (insurer) for Statin medication(s). Patient is reviewed 03/15/24 due to medication adherence concerns with the following medications (name, strength, sig): Rosuvastatin 40 mg 1 tablet every day . Per data/report, last fill date and days supply: Due 03/13/2024 Per reconcile dispense, last fill date and days supply: 03/13/2024 for 90 days Per call to pharmacy, last picked up date and days supply: NA Outcome of review/outreach: (choose outcome source and status) - Filled within 7 days of Next fill date per reconcile dispense Violet Urrutia documented in this encounterK[facility]10-15-2024 NotePatient Outreach (PHPOHE) ZORAIDA PIRES ([id number]) 1950 F Date Time Provider Department 03/15/24 SANDY BRASWELL During your visit today, we recorded the following information about you: Violet Urrutia 03/15/2024 2:59 PM Signed Zoraida Pires is identified through a medication adherence outreach initiative based on pharmacy claims data from [employer] (insurer) for Statin medication(s). Patient is reviewed 10/15/24 due to medication adherence concerns with the following medications (name, strength, sig): Rosuvastatin 40 mg 1 tablet every day . Per data/report, last fill date and days supply: Due 03/13/2024 Per reconcile dispense, last fill date and days supply: 03/13/2024 for 90 days Per call to pharmacy, last picked up date and days supply: NA Outcome of review/outreach: (choose outcome source and status) - Filled within 7 days of Next fill date per reconcile dispense Violet Alton Urrutia Allergies As of Date: 03/15/2024 (No Active Allergies) Date Reviewed: 12/14/2023 Reviewed by: Meg Esposito MA - Fully Assessed Reason for Visit: Allied Health Visit [5] Cmt: Medication Adherence Outreach Prescriptions as of 03/15/2024 - traZODone (DESYREL) 50 mg tablet Take 1 tablet by mouth at bedtime as needed. - clopidogrel (PLAVIX) 75 mg tablet Take 1 tablet by mouth once daily. - amoxicillin-clavulanate potassium (AUGMENTIN) 875-125 mg per tablet Take 1 tablet by mouth every 12 hours. - rosuvastatin (CRESTOR) 40 mg tablet Take 1 tablet by mouth once daily. - nitroglycerin sublingual (NITROQUICK) 0.4 mg SL tablet Dissolve 1 tablet under the tongue as needed. DISSOLVE ON TONGUE FOR CHEST PAIN. IF NO PAIN RELIEF, CALL 911 - metoprolol succinate ER (TOPROL XL) 100 mg Take 1 tablet by mouth once daily. - citalopram (CELEXA) 40 mg tablet Take 1 tablet by mouth once daily. - amLODIPine (NORVASC) 5 mg tablet Take 1 tablet by mouth every afternoon. - pantoprazole DR (PROTONIX) 40 mg tablet Take 1 tablet by mouth once daily. - cilostazol (PLETAL) 50 mg tablet 1 tablet 30 minutes before or 2 hours after breakfast and dinner Orally Twice a day for 30 day(s) - BD INSULIN SYRINGE ULTRA-FINE 0.3 mL 31 gauge x 5/16" once daily. - insulin glargine (LANTUS U-100 INSULIN) 100 unit/mL injection Inject [address] Palumbo - FIASP FLEXTOUCH U-100 INSULIN 100 unit/mL (3 mL) pen Inject as directed: small meal 5-6units; medium meal 6-7 units; large meal 8-[address] Palumbo. - gabapentin (NEURONTIN) 800 mg tablet Take 1 tablet by mouth two times a day for 180 days. - buPROPion SR (ZYBAN SR; WELLBUTRIN SR) 150 mg 12 hr tablet Take 1 tablet by mouth every 12 hours. - HYDROcodone-Acetaminophen (NORCO) 7.5-325 mg per tablet Take 1 tablet by mouth every 6 hours as needed for pain for up to 30 days. - blood sugar diagnostic (BLOOD GLUCOSE TEST) test strip Test blood sugar(s) 3 times daily. Dx: Type 1 DM - Uncontrolled E 10.65 Insulin: Yes - isosorbide dinitrate (ISORDIL) 20 mg tablet Take 1 tablet by mouth twice daily. - albuterol HFA (VENTOLIN HFA) 90 mcg/actuation inhaler Inhale 2 Puffs as instructed every 4 hours as needed for wheezing/shortness of breath. - lisinopril (ZESTRIL) 40 mg tablet Take 40 mg by mouth once daily. - spironolactone (ALDACTONE) 50 mg tablet Take 50 mg by mouth twice daily. - PEG 400-propylene glycol (SYSTANE ULTRA) 0.4-0.3 % ophthalmic solution Use 1 Drop in both eyes every 2 hours while awake. - levothyroxine (SYNTHROID) 100 mcg tablet Take 100 mcg by mouth once daily. - Insulin Syringe-Needle U-100 (ULTRA FINE INSULIN) 1 mL 30 x 1/2" syrg use 5 times a day as directed. - POLYVINYL ALCOHOL (20/20 ARTIFICIAL TEARS OPHTHALMIC) Use in eyes as needed. 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 os bid and pink cap is qid, not sure of med names, pt didn't bring bottles Problem List As Of Date 03/15/2024 Noted Resolved Disturbance of skin sensation [R20.9] 06/29/2003 09/19/2022 Special screening for malignant neoplasms, colo*06/16/2007 05/31/2012 GASTRITIS/DUODEN NOS W/O HEMORRH [K29.70, K29.9*09/23/2007 Blood in stool [K92.1] 09/23/2007 09/19/2022 Hyperlipidemia [E78.5] 07/04/2010 Hypothyroid [E03.9] 07/04/2010 HTN (hypertension) [I10] 07/04/2010 Reflux [XTB3071] 07/04/2010 09/19/2022 Depression [F32.A] 07/04/2010 Status post coronary artery stent placement [Z9*07/04/2010 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*07/04/2010 CAD (coronary artery disease) [I25.10] 07/04/2010 Degenerative disc disease [UAL9467] 07/04/2010 Osteoarthritis of right shoulder region [M19.01*07/04/2010 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 She stated she needs to check with families schedule to see when she'd be able to get a ride. She stated she would figure this out and call us back to schedule. She did not wish to schedule anything while on the phone with me. Requested refill while talking with her. Trazodone. Pended. Meg Esposito MA [facility]10-01-2024 Miscellaneous Notes* Telephone Encounter - Meg Esposito MA - 03/01/2024 9:54 AM EDT Called and spoke with patient about scheduling a BP follow up. She stated she needs to check with families schedule to see when she'd be able to get a ride. She stated she would figure this out and call us back to schedule. She did not wish to schedule anything while on the phone with me. Requested refill while talking with her. Trazodone. Pended. Meg Esposito MA * Telephone Encounter - Nina Simons LPN - 02/29/2024 5:11 PM EDT Received notice of elevated BP readings form outside provider office ([facility]) on 02/29/24. Please schedule patient for BP check in office with provider. If patient has home monitor bring to office for validation. documented in [facility]-20[facility] Telephone encounter Note * Telephone Encounter - Nina Simons LPN - 02/29/2024 5:11 PM EDT Received notice of elevated BP readings form outside provider office ([facility]) on 02/29/24. Please schedule patient for BP check in office with provider. If patient has home monitor bring to office for validation. [facility]09-24-2024 [facility]09-17-2024 [facility]09-16-2024 NoteReferral placed to Rehab - [facility] via [facility] per TCC request. Await review and response regarding ability to accept. TCC notified. Electronically signed by VEE [facility]Henry [facility]-2024 NoteSpoke with patient's son over the phone, updated his contact information in Epic. Dave agreeable to IPR level and requested [facility]. Task to [facility] to place referral. [facility]09-08-2024 NoteProblem: Respiratory - Adult Goal: Achieves optimal ventilation and oxygenation Outcome: Progressing Problem: Safety - Adult Goal: Free from fall injury [facility]09-04-2024 NotePt tolerated procedure well. Transfer back to .[facility]09-03-2024 NoteReferral placed to [facility] - [facility] via [facility] per TCC request. Await review and response regarding ability to accept. TCC notified. Electronically signed by VEE [facility] [id number] [facility]08-30-2024 [facility]08-23-2024 Note [facility] [id number] [facility]08-23-2024 Note [facility]08-16-2024 NoteAddended by: VIKI RUSHING on: 01/15/2024 12:19 PM Modules accepted: [facility]08-16-2024 [facility]08[facility]16-20[facility] NoteAddended by: GIGI CHAVEZ on: 01/11/2024 11:40 AM Modules accepted: [facility]07-31-2024 Telephone encounter Note* Telephone Encounter - Sunday Peng LPN - 12/30/2023 4:24 PM EDT Prescription Refill Information The patient has been identified by name and date of : Yes Caregiver verified no other encounters exist for this prescription request: Yes Caregiver confirmed with patient/requestor that no other refills are due, in the near future, with this provider at this time: Yes The last office visit in the department: 12/14/23 Does the patient have a future office visit with this provider/department: Yes, 06/15/24 Requested Prescriptions Pending Prescriptions Disp Refills clopidogrel (PLAVIX) 75 mg tablet 90 tablet 3 Sig: Take 1 tablet by mouth once daily. Sunady Peng LPN December 30, 2023 4:25 PM [facility]07-31-2024 Miscellaneous Notes* Telephone Encounter - Sunday Peng LPN - 12/30/2023 4:24 PM EDT Prescription Refill Information The patient has been identified by name and date of : Yes Caregiver verified no other encounters exist for this prescription request: Yes Caregiver confirmed with patient/requestor that no other refills are due, in the near future, with this provider at this time: Yes The last office visit in the department: 12/14/23 Does the patient have a future office visit with this provider/department: Yes, 06/15/24 Requested Prescriptions Pending Prescriptions Disp Refills clopidogrel (PLAVIX) 75 mg tablet 90 tablet 3 Sig: Take 1 tablet by mouth once daily. Sunday Peng LPN December 30, 2023 4:25 PM documented in this encounterK[facility]07-31-2024 NotePatient Outreach (INTMMN) ZORAIDA PIRES ([id number]) 1950 F Date Time Provider Department 12/30/23 SANDY BRASWELL During your visit today, we recorded the following information about you: Allergies As of Date: 12/30/2023 (No Active Allergies) Date Reviewed: 12/14/2023 Reviewed by: Meg Esposito MA - Fully Assessed Visit Diagnosis:Encounter for screening mammogram for breast cancer [Z12.31] Order(s):[facility] SCREENING [facility] [[id number]] Order #: [id number] FUTURE Prescriptions as of 01/04/2024 - clopidogrel (PLAVIX) 75 mg tablet Take 1 tablet by mouth once daily. - amoxicillin-clavulanate potassium (AUGMENTIN) 875-125 mg per tablet Take 1 tablet by mouth every 12 hours. - rosuvastatin (CRESTOR) 40 mg tablet Take 1 tablet by mouth once daily. - nitroglycerin sublingual (NITROQUICK) 0.4 mg SL tablet Dissolve 1 tablet under the tongue as needed. DISSOLVE ON TONGUE FOR CHEST PAIN. IF NO PAIN RELIEF, CALL 911 - metoprolol succinate ER (TOPROL XL) 100 mg Take 1 tablet by mouth once daily. - citalopram (CELEXA) 40 mg tablet Take 1 tablet by mouth once daily. - amLODIPine (NORVASC) 5 mg tablet Take 1 tablet by mouth every afternoon. - pantoprazole DR (PROTONIX) 40 mg tablet Take 1 tablet by mouth once daily. - traZODone (DESYREL) 50 mg tablet TAKE 1 TABLET BY MOUTH DAILY AT BEDTIME NEEDED - cilostazol (PLETAL) 50 mg tablet 1 tablet 30 minutes before or 2 hours after breakfast and dinner Orally Twice a day for 30 day(s) - BD INSULIN SYRINGE ULTRA-FINE 0.3 mL 31 gauge x 5/16" once daily. - insulin glargine (LANTUS U-100 INSULIN) 100 unit/mL injection Inject [address] Palumbo - FIASP FLEXTOUCH U-100 INSULIN 100 unit/mL (3 mL) pen Inject as directed: small meal 5-6units; medium meal 6-7 units; large meal 8-[address] Palumbo. - gabapentin (NEURONTIN) 800 mg tablet Take 1 tablet by mouth two times a day for 180 days. - buPROPion SR (ZYBAN SR; WELLBUTRIN SR) 150 mg 12 hr tablet Take 1 tablet by mouth every 12 hours. - HYDROcodone-Acetaminophen (NORCO) 7.5-325 mg per tablet Take 1 tablet by mouth every 6 hours as needed for pain for up to 30 days. - blood sugar diagnostic (BLOOD GLUCOSE TEST) test strip Test blood sugar(s) 3 times daily. Dx: Type 1 DM - Uncontrolled E 10.65 Insulin: Yes - isosorbide dinitrate (ISORDIL) 20 mg tablet Take 1 tablet by mouth twice daily. - albuterol HFA (VENTOLIN HFA) 90 mcg/actuation inhaler Inhale 2 Puffs as instructed every 4 hours as needed for wheezing/shortness of breath. - lisinopril (ZESTRIL) 40 mg tablet Take 40 mg by mouth once daily. - spironolactone (ALDACTONE) 50 mg tablet Take 50 mg by mouth twice daily. - PEG 400-propylene glycol (SYSTANE ULTRA) 0.4-0.3 % ophthalmic solution Use 1 Drop in both eyes every 2 hours while awake. - levothyroxine (SYNTHROID) 100 mcg tablet Take 100 mcg by mouth once daily. - Insulin Syringe-Needle U-100 (ULTRA FINE INSULIN) 1 mL 30 x 1/2" syrg use 5 times a day as directed. - POLYVINYL ALCOHOL (20/20 ARTIFICIAL TEARS OPHTHALMIC) Use in eyes as needed. 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 os bid and pink cap is qid, not sure of med names, pt didn't bring bottles Problem List As Of Date 12/30/2023 Noted Resolved Disturbance of skin sensation [R20.9] 06/29/2003 09/19/2022 Special screening for malignant neoplasms, colo*06/16/2007 05/31/2012 GASTRITIS/DUODEN NOS W/O HEMORRH [K29.70, K29.9*09/23/2007 Blood in stool [K92.1] 09/23/2007 09/19/2022 Hyperlipidemia [E78.5] 07/04/2010 Hypothyroid [E03.9] 07/04/2010 HTN (hypertension) [I10] 07/04/2010 Reflux [MMR4069] 07/04/2010 09/19/2022 Depression [F32.A] 07/04/2010 Status post coronary artery stent placement [Z9*07/04/2010 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*07/04/2010 CAD (coronary artery disease) [I25.10] 07/04/2010 Degenerative disc disease [LUK4777] 07/04/2010 Osteoarthritis of right shoulder region [M19.01*07/04/2010 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) [E13*07/04/2010 09/19/2022 Proliferative diabetic retinopathy(362.02) (HC*08/30/2010 07/18/2014 Routine general medical examination at health*10/23/2010 05/31/2012 Class: Chronic Routine gynecological examination [Z01.419] 10/23/2010 05/31/2012 Class: Chronic Low back pain [M54.50] 10/23/2010 09/19/2022 Other benign neoplasm of connective and other s*01/16/2011 09/19/2022 Type I (juvenile type) diabetes mellitus with o*02/04/2011 07/18/2014 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 Author Type: Physician Type: Progress Notes Filed: 12/14/2023 16:50 Note Text: Patient presents with: Yearly Exam HPI: Patient presents today for office visit for yearly follow up. Has not been seen since 01/20/23. Medication reconciled. Follows with Endocrinology for her sugars. Dr. Palumbo. They are following with her thyroid as well. Has continuous glucose monitor. A1c 10/21/23 8.0 Had wound culture done on 12/09/23 of left knee. Woke up on 12/07/23 with swelling to left knee cap. Noticed her pants were all wet and saw that the abscess had broke open. Currently taking Amoxicillin 875 mg BID. Knee is looking better. Seen at urgent. Was to follow with ortho. Encouraged. Is looking much better. Was red and warm. No fever. One culture is growing a meth resistant staph. Follows with Nephrology. Dr. Hollis. Recently taken off HCTZ and started on spironolactone. HTN: Monitors BP occ. Chest pain after exertion. Cardiology is aware. Has not changed. Shortness of breath with exertion. Follows with Cardiology. Dr. Wood. Having heart cath scheduled 12/22/23. Denies palpitations Denies syncope Denies edema She has been seeing Dr Nielsen. Will be seeing Dr Cuello. Emotionally is doing well. Has had recent labs at [facility]. Needs mammogram order sent to [facility]. Note was copied and pasted, without alteration from: last ov Still seeing Dr. Palumbo. Just saw her on Thursday. Sugars have been relatively. Last a1c was 7.1 Still continue to have back pain. Saw Dr. Nielsen, spine med, who felt there was nothing he could do for her spine. It is inoperable. She has still not gotten into pain management. Reinforced need to do so. She would like to see Dr Winkler. Will repeat controlled substance agreement and do tox screen. She had requested ambien. Again discussed that we should not use it with the hydrocodone. No chest pain No dyspnea. Still seeing cardiology. Bp is stable. Still some stress with her home situation. Had her lung cancer screening. She will verify with her hospital in [facility] when her last colonoscopy. No bowel changes. MEDICATIONS: Current Outpatient Medications Medication Sig amoxicillin-clavulanate potassium (AUGMENTIN) 875-125 mg per tablet Take 1 tablet by mouth every 12 hours. rosuvastatin (CRESTOR) 40 mg tablet Take 1 tablet by mouth once daily. traZODone (DESYREL) 50 mg tablet TAKE 1 TABLET BY MOUTH DAILY AT BEDTIME NEEDED cilostazol (PLETAL) 50 mg tablet 1 tablet 30 minutes before or 2 hours after breakfast and dinner Orally Twice a day for 30 day(s) BD INSULIN SYRINGE ULTRA-FINE 0.3 mL 31 gauge x 5/16" once daily. insulin glargine (LANTUS U-100 INSULIN) 100 unit/mL injection Inject [address] Palumbo FIASP FLEXTOUCH U-100 INSULIN 100 unit/mL (3 mL) pen Inject as directed: small meal 5-6units; medium meal 6-7 units; large meal 8-[address] Palumbo. nitroglycerin sublingual (NITROQUICK) 0.4 mg SL tablet Dissolve 1 tablet under the tongue as needed. DISSOLVE ON TONGUE FOR CHEST PAIN. IF NO PAIN RELIEF, CALL 911 citalopram (CELEXA) 40 mg tablet Take 1 tablet by mouth once daily. gabapentin (NEURONTIN) 800 mg tablet Take 1 tablet by mouth two times a day for 180 days. metoprolol succinate ER (TOPROL XL) 100 mg Take 1 tablet by mouth once daily. buPROPion SR (ZYBAN SR; WELLBUTRIN SR) 150 mg 12 hr tablet Take 1 tablet by mouth every [address] (PROTONIX) 40 mg tablet Take 1 tablet by mouth once daily. amLODIPine (NORVASC) 5 mg tablet Take 1 tablet by mouth every afternoon. HYDROcodone-Acetaminophen (NORCO) 7.5-325 mg per tablet Take 1 tablet by mouth every 6 hours as needed for pain for up to 30 days. blood sugar diagnostic (BLOOD GLUCOSE TEST) test strip Test blood sugar(s) 3 times daily. Dx: Type 1 DM - Uncontrolled E 10.65 Insulin: Yes isosorbide dinitrate (ISORDIL) 20 mg tablet Take 1 tablet by mouth twice daily. clopidogrel (PLAVIX) 75 mg tablet Take 1 tablet by mouth once daily. albuterol HFA (VENTOLIN HFA) 90 mcg/actuation inhaler Inhale 2 Puffs as instructed every 4 hours as needed for wheezing/shortness of breath. lisinopril (ZESTRIL) 40 mg tablet Take 40 mg by mouth once daily. spironolactone (ALDACTONE) 50 mg tablet Take 50 mg by mouth twice daily. PEG 400-propylene glycol (SYSTANE ULTRA) 0.4-0.3 % ophthalmic solution Use 1 Drop in both eyes every 2 hours while awake. levothyroxine (SYNTHROID) 100 mcg tablet Take 100 mcg by mouth once daily. Insulin Syringe-Needle U-100 (ULTRA FINE INSULIN) 1 mL 30 x 1/2" syrg use 5 times a day as directed. POLYVINYL ALCOHOL (20/20 ARTIFICIAL TEARS OPHTHALMIC) Use in eyes as needed. blood sugar diagnostic test strip Test blood sugars five times daily No current facility-administered medications for this visit. ALLERGIES: ALLERGIES Allergen Reactions Enviromental [Other] Itching PAST MEDICAL HISTORY (more content not included)...[facility]07-15-2024 History of Present illness Narrative* Sandy Braswell MD - 12/14/2023 3:11 PM EDT Patient presents with: Yearly Exam HPI: Patient presents today for office visit for yearly follow up. Has not been seen since 01/20/23. Medication reconciled. Follows with Endocrinology for her sugars. Dr. Palumbo. They are following with her thyroid as well. Has continuous glucose monitor. A1c 10/21/23 8.0 Had wound culture done on 12/09/23 of left knee. Woke up on 12/07/23 with swelling to left knee cap. Noticed her pants were all wet and saw that the abscess had broke open. Currently taking Amoxicillin 875 mg BID. Knee is looking better. Seen at urgent. Was to follow with ortho. Encouraged. Is looking much better. Was red and warm. No fever. One culture is growing a meth resistant staph. Follows with Nephrology. Dr. Hollis. Recently taken off HCTZ and started on spironolactone. HTN: Monitors BP occ. Chest pain after exertion. Cardiology is aware. Has not changed. Shortness of breath with exertion. Follows with Cardiology. Dr. Wood. Having heart cath scheduled 12/22/23. Denies palpitations Denies syncope Denies edema She has been seeing Dr Nielsen. Will be seeing Dr Cuello. Emotionally is doing well. Has had recent labs at [facility]. Needs mammogram order sent to [facility]. Note was copied and pasted, without alteration from: last ov Still seeing Dr. Palumbo. Just saw her on Thursday. Sugars have been relatively. Last a1c was 7.1 Still continue to have back pain. Saw Dr. Nielsen, spine med, who felt there was nothing he could dofor her spine. It is inoperable. She has still not gotten into pain management. Reinforced need to do so. She would like to see Dr Winkler. Will repeat controlled substance agreement and do tox screen. She had requested ambien. Again discussed that we should not use it with the hydrocodone. No chest pain No dyspnea. Still seeing cardiology. Bp is stable. Still some stress with her home situation. Had her lung cancer screening. She will verify with her hospital in [facility] when her last colonoscopy. No bowel changes. MEDICATIONS: Current Outpatient Medications Medication Sig amoxicillin-clavulanate potassium (AUGMENTIN) 875-125 mg per tablet Take 1 tablet by mouth every 12hours. rosuvastatin (CRESTOR) 40 mg tablet Take 1 tablet by mouth once daily. traZODone (DESYREL) 50 mg tablet TAKE 1 TABLET BY MOUTH DAILY AT BEDTIME NEEDED cilostazol (PLETAL) 50 mg tablet 1 tablet 30 minutes before or 2 hours after breakfast and dinner Orally Twice a day for 30 day(s) BD INSULIN SYRINGE ULTRA-FINE 0.3 mL 31 gauge x 5/16" once daily. insulin glargine (LANTUS U-100 INSULIN) 100 unit/mL injection Inject [address] Palumbo FIASP FLEXTOUCH U-100 INSULIN 100 unit/mL (3 mL) pen Inject as directed: small meal 5-6units; medium meal 6-7 units; large meal 8-[address] Palumbo. nitroglycerin sublingual (NITROQUICK) 0.4 mg SL tablet Dissolve 1 tablet under the tongue as needed. DISSOLVE ON TONGUE FOR CHEST PAIN. IF NO PAIN RELIEF, CALL 911 citalopram (CELEXA) 40 mg tablet Take 1 tablet by mouth once daily. gabapentin (NEURONTIN) 800 mg tablet Take 1 tablet by mouth two times a day for 180 days. metoprolol succinate ER (TOPROL XL) 100 mg Take 1 tablet by mouth once daily. buPROPion SR (ZYBAN SR; WELLBUTRIN SR) 150 mg 12 hr tablet Take 1 tablet by mouth every [address] (PROTONIX) 40 mg tablet Take 1 tablet by mouth once daily. amLODIPine (NORVASC) 5 mg tablet Take 1 tablet by mouth every afternoon. HYDROcodone-Acetaminophen (NORCO) 7.5-325 mg per tablet Take 1 tablet by mouth every 6 hours as needed for pain for up to 30 days. blood sugar diagnostic (BLOOD GLUCOSE TEST) test strip Test blood sugar(s) 3 times daily. Dx: Type 1 DM - Uncontrolled E 10.65 Insulin: Yes isosorbide dinitrate (ISORDIL) 20 mg tablet Take 1 tablet by mouth twice daily. clopidogrel (PLAVIX) 75 mg tablet Take 1 tablet by mouth once daily. albuterol HFA (VENTOLIN HFA) 90 mcg/actuation inhaler Inhale 2 Puffs as instructed every 4 hours asneeded for wheezing/shortness of breath. lisinopril (ZESTRIL) 40 mg tablet Take 40 mg by mouth once daily. spironolactone (ALDACTONE) 50 mg tablet Take 50 mg by mouth twice daily. PEG 400-propylene glycol (SYSTANE ULTRA) 0.4-0.3 % ophthalmic solution Use 1 Drop in both eyes every 2 hours while awake. levothyroxine (SYNTHROID) 100 mcg tablet Take 100 mcg by mouth once daily. Insulin Syringe-Needle U-100 (ULTRA FINE INSULIN) 1 mL 30 x 1/2" syrg use 5 times a day as directed. POLYVINYL ALCOHOL (20/20 ARTIFICIAL TEARS OPHTHALMIC) Use in eyes as needed. blood sugar diagnostic test strip Test blood sugars five times daily No current facility-administered medications for this visit. ALLERGIES: ALLERGIES Allergen Reactions Enviromental [Other] Itching PAST MEDICAL HISTORY Diagnosis Date Atherosclerosis Cataract both eyes Degenerative disc disease Depression Diabetes mellitus (HCC) Essential hypertension, benign Hemorrhage of gastrointestinal tract, unspecified Impaired circulation of left leg both legs Neuropathy Other acute and subacute form of ischemic heart disease 06/01/1995 Other and unspecified hyperlipidemia Other specified disorders of pancreatic internal secretion PDR (proliferative diabetic retinopathy) (HCC) Pseudophakia of left eye Sleep apnea Unspecified hypothyroidism PAST SURGICAL HISTORY Procedure Laterality Date BALLN ANGIOPLASTY OPEN,FEM-POP COLONOSCOPY FLX DX W/COLLJ SPEC WHEN PFRMD 09/23/2007 Colonoscopy ESOPHAGOGASTRODUODENOSCOPY TRANSORAL DIAGNOSTIC 09/23/2007 EGD PAST SURGICAL HISTORY OF 2005-? Laser Treatments Both Eyes (Ongoing) PERC TRANSL COR ANGIO Percutaneous Transluminal Coronary Angio Status POST-CATARACT LASER SURGERY Right 11/11/2023 Dr. Christensen REMV CATARACT EXTRACAP,INSERT LENS Bilateral RMVL LENS MATERIAL PHACOFRAGMENTATION ASPIR os 01/09/2011 Cataract Extraction STENT PLACEMENT 06/01/1995 with HI VITRECTOMY MECHANICAL PARS PLANA os 01/09/2011 [place] Vitrectomy WRIST SPLINT carpal tunnel on R FAMILY HISTORY Problem Relation Age of Onset Lipids Mother Allergies Mother Arthritis Mother Breast Cancer Mother Cancer Mother stomach COPD Mother Hypertension Mother Thyroid Mother Psychiatry Mother depression Cataract Mother Diabetes Father Prostate Lipids Father Allergies Father Cancer Father stomach Prostate Cancer Father Hypertension Father Stroke Father Thyroid Sister Allergies Sister Cervical Cancer Sister Hypertension Brother Allergies Brother Diabetes Maternal Uncle Social History Tobacco Use Smoking status: Every Day Packs/day: 1.00 Years: 20.00 Additional pack years: 0.00 Total pack years: 20.00 Types: Cigarettes Smokeless tobacco: Never Tobacco comments: Down to about 1/2 a pack a day Vaping Use Vaping Use: Never used Substance Use Topics Alcohol use: No Drug use: No Reviewed current medications, allergies, past medical history, surgical history, family history andsocial history today. REVIEW OF SYSTEMS All other reviewed and negative other than HPI. VITALS: BP 132/52 Pulse (!) 55 Ht 152.4 cm (5') Wt 60.8 kg (134 lb) SpO2 97% BMI 26.17 kg/m Last 4 Encounter Wt Readings: Date: Wt: 01/20/2023 61.2 kg (135 lb) 09/19/2022 59.9 kg (132 lb) 09/02/2022 61.7 kg (136 lb) 07/14/2022 59.4 kg (131 lb) PHYSICAL EXAMINATION: General appearance: Well appearing, alert, in no acute distress, well-hydrated, well nourished. Skin: Skin color, texture, turgor normal, no suspicious rashes or lesion Lungs: Lungs clear to auscultation. No wheezing, rhonchi, rales Heart: RRR without murmur, gallop, or rubs. No ectopy Abdomen: Normal abdominal exam, Abdomen soft, non-tender. Bowel sounds normal. No masses, organomegaly Extremities: No deformities, edema, skin discoloration, clubbing or cyanosis. Good capillary refill. , knee shows no redness. Still slightly sore and puffy over the right knee. No drainage today but still producing drainage from small opening. ASSESSMENT/PLAN: 1. 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) - ICD9: 250.61, 357.2, ICD10: E10.40 (primary diagnosis) - per endo. 2. Status post coronary artery stent placement - ICD9: V45.82, ICD10: Z95.5 - NITROGLYCERIN 0.4 MG SUBLINGUAL TABLET Getting heart cath. 3. Depression - ICD9: 311, ICD10: F32.A - CITALOPRAM 40 MG TABLET - Red flags for re-assessment reviewed with patient in detail. 4. Primary hypertension - ICD9: 401.9, ICD10: I10 - Controlled - Continue current medications 5. Hyperlipidemia, unspecified hyperlipidemia type - ICD9: 272.4, ICD10: E78.5 - stable. 6. Hypothyroidism, unspecified type - ICD9: 244.9, ICD10: E03.9 - follow progress. 7. Generalized anxiety disorder - ICD9: 300.02, ICD10: F41.1 - stable. 8. Spinal stenosis of lumbar region, unspecified whether neurogenic claudication present - ICD9: 724.02, ICD10: M48.061 -as above. 9. Family history of colon cancer - ICD9: V16.0, ICD10: Z80.0 -consider follow up. 10. Cellulitis of knee - ICD9: 682.6, ICD10: L03.119 - improving with augmentin. Showing resistant staph on culture. Given her allergies and med interactions, add doxy. Red flags for re-assessment reviewed with patient in detail. Given nearness to the bursa, see ortho - CONSULT TO ORTHOPAEDICS - DOXYCYCLINE MONOHYDRATE 100 MG TABLET Sandy Braswell RTO in six months. and prn. documented [facility] Telephone encounter Note * Telephone Encounter - Shavonne Mccauley MA - 12/10/2023 11:28 AM EDT TC to patient. Scheduled patient for routine f/u Thursday12/14/23 @ 3:40 PM with PCP. Shavonne Mccauley MA [facility] Miscellaneous Notes* Telephone Encounter - Shavonne Mccauley MA - 12/10/2023 11:28 AM EDT TC to patient. Scheduled patient for routine f/u Thursday12/14/23 @ 3:40 PM with PCP. Shavonne Mccauley MA * Telephone Encounter - Sunday Peng LPN - 12/09/2023 11:22 AM EDT Prescription Refill Information The patient has been identified by name and date of : Yes Caregiver verified no other encounters exist for this prescription request: Yes Caregiver confirmed with patient/requestor that no other refills are due, in the near future, with this provider at this time: Yes The last office visit in the department: 01/20/23 Does the patient have a future office visit with this provider/department: No Requested Prescriptions Pending Prescriptions Disp Refills rosuvastatin (CRESTOR) 40 mg tablet 90 tablet 1 Sig: Take 1 tablet by mouth once daily. *Pt is overdue for follow up appt (was supposed to follow up in April). message to pt advising of the same. Sunday Peng LPN December 09, 2023 11:22 AM documented in this encounterK[facility]07-[facility]-2024 Telephone encounter Note * Telephone Encounter - Sunday Peng LPN - 12/09/2023 11:22 AM EDT Prescription Refill Information The patient has been identified by name and date of : Yes Caregiver verified no other encounters exist for this prescription request: Yes Caregiver confirmed with patient/requestor that no other refills are due, in the near future, with this provider at this time: Yes The last office visit in the department: 01/20/23 Does the patient have a future office visit with this provider/department: No Requested Prescriptions Pending Prescriptions Disp Refills rosuvastatin (CRESTOR) 40 mg tablet 90 tablet 1 Sig: Take 1 tablet by mouth once daily. *Pt is overdue for follow up appt (was supposed to follow up in April). message to pt advising of the same. Sunday Peng LPN December 09, 2023 11:22 AM [facility] NoteDate of Procedure 11/19/2023. 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 Start time: 2:55 PM. Stop time: 2:59 PM. Interpretation Right Eye Normal without fluid. Left Eye Normal without fluid.[id number] Instructions* Patient Instructions* Iliana Quan OD - 11/19/2023 3:05 PM EDT ASSESSMENT/PLAN: 1. S/P YAG capsulotomy, right - ICD9: V45.89, ICD10: Z98.890 (primary diagnosis) 2. Pseudophakia - ICD9: V43.1, ICD10: Z96.1 No improvement was noted per patient. New refraction was attempted but may have been influenced with dilated exam. Recommended return for refraction Refraction in 2-3 weeks. documented in this encounterK[facility]06-20-2024 History of Present illness Narrative* Iliana Quan OD - 11/19/2023 2:57 PM EDT ASSESSMENT/PLAN: 1. S/P YAG capsulotomy, right - ICD9: V45.89, ICD10: Z98.890 (primary diagnosis) 2. Pseudophakia - ICD9: V43.1, ICD10: Z96.1 No improvement was noted per patient. New refraction was attempted but may have been influenced with dilated exam. Recommended return for refraction Refraction in 2-3 weeks. Iliana Quan, OD I have confirmed and edited as necessary the relevant ophthalmic history, ROS, and the neuro exam findings as obtained by others. documented in this encounterK[facility]06-12-2024 NoteDate of Procedure 11/11/2023 [place] Protocol Safety Checklist Sign In: A moment to CARE completed, Special equipment verified, Appropriate PPE verified, Patient name, date of , allergies and intended procedure verified. Provider Confirms: Intended patient and procedure match the source document, Consent documented and matches the intended procedure, Correct side/site marked visible. No relevant labs, photos, and/or imaging studies to review. Medications required for procedure verified. No fire risk. No implants. Anesthesia 1-2 drops Topical 0.5% Proparacaine. Pre Laser Meds 1-2 drops Brimondine 0.2%. Laser Paramters Power: 0.7. Total Spots: 60. Post Laser Meds 1-2 drops Brimonidine 0.2%. Home Going Prescription None. Sign Out Sign out discussion completed, All instruments, equipment, and/or possible retained foreign bodies accounted for, Post-procedure follow up management communicated. No specimens.[facility] Instructions* Patient Instructions* Darrian Christensen MD - 11/11/2023 2:37 PM EDT Images from the original note were not included. documented in this encounterK[facility]06-12-2024 History of Present illness Narrative* aDrrian Christensen MD - 11/11/2023 2:31 PM EDT Assessment and Plan 1. PCO (posterior capsular opacification), right 2. Pseudophakia Zoraida Pires has confirmed that she is no longer able to function adequately on a daily basis with her current visual condition. Further, it is my medical opinion that the posterior capsule opacity is the primary cause, or a significantly contributory cause, of her visual dysfunction. With uncomplicated YAG laser posterior capsulotomy, it is my expectation that her visual function and quality of life will improve, significantly. The risks, benefits, alternatives, personnel and complications of YAG laser posterior capsulotomy were discussed with Zoraida Pires in detail. she appeared to understand and asked that I proceed with plans for surgery. 3. 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 Montalvo 4. Punctate keratitis, bilateral -stable Plan: -asking for YAG capsulotomy right eye -risk, benefis, and alternatives reviewed and consent obtained -Retina precautions reviewed. Return to clinic as soon as possible if increased floaters, flashes, or shadows. -follow-up 1 week / sooner as needed with dilated fundus exam I have confirmed and edited as necessary the relevant ophthalmic history, ROS, and the neuro exam findings as obtained by others. I have seen and examined Zoraida Pires. I have discussed the case and the management of this patient's care with the Resident/Fellow, if applicable. I also have reviewed and agree with the assessment and plan as stated above and agree withall of its relevant components. Darrian Christensen MD November 11, 2023 2:32 PM documented in this encounterK[facility]06-06-2024 NoteDate of Procedure 11/05/2023. Interpretation Right Eye Findings include Negative for Intraretinal fluid, Subretinal fluid. Left Eye Findings include Negative for Intraretinal fluid, Subretinal fluid. Interval Change Right Eye Stable. Left Eye Stable.[id number] History of Present illness Narrative* Dejuan Montalvo MD, PhD - 11/05/2023 2:41 PM EDT Referred by Dr. Rivera for diabetic retinopathy eval Former patient of Dr. Cali Churchill (last visit 07/2014) 1. 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 S/p Panretinal laser photocoagulation Both Eyes multiple sessions per patient S/p Fill in Panretinal laser photocoagulation (PRP) August 2023 History recurrent vitreous hemorrhage OD S/p phacoemulsification/intraocular lens/Pars plana vitrectomy (PPV)/Tractional retinal detachment repair 01/09/11 (Eliezer Churchill/[facility]) OS S/p CEIOL in [place] H/o vitreous heme right eye-scant residual heme today 2. Pseudophakia both eyes -posterior capsular opacity (PCO) right eye -has appt with Dr. Christensen for YAG eval 11/11/23 Plan: Recent vitreous hemorrhage right eye Jun or Jul 2023, treated with PRP Suspect PCO is more significant than the floaters (and is lower risk to treat) Continue with Yag eval with Dr. Christensen If she continues to re-bleed she will need a PPV Return in 4 months I have confirmed and edited as necessary the relevant HPI, ophthalmic history, ROS, and the neuro exam findings as obtained by others. I have seen and examined Zoraida Pires. I have discussed the case and the management of this patient's care with the Resident/Fellow, if applicable. I also have reviewed and agree with the assessment and plan as stated above and agree withall of its relevant components. Dejuan Montalvo MD documented in this encounterK[facility]04-04-2024 Instructions* Patient Instructions* Dejuan Montalvo MD, PhD - 09/03/2023 3:16 PM EDT Post-Procedure Patient Information Retina Laser Laser treatment is a common outpatient treatment for various eye problems. For all eye lasers, the light is very bright, so your vision will be dazzled for a short period of time just as if you had been photographed with a flash camera a number of times. After a few minutes (if you had a numbing injection, vision returns in a few hours as opposed to minutes and the anesthetic wears off), side vision starts to come back and slowly over a few hours, most of your vision returns; by the next day, your vision is usually back to your baseline or to 90% of baseline. Some tearing after laser treatment is common, but if redness and tearing persist the next day, please call. Pain like a headache in or around the eye is common but tends to resolve in hours. [ ] You had laser treatment for a retina condition. The vision the next day will be your new temporary baseline; it takes months to see what the final outcome will be, but if your central or peripheral vision seems to be getting worse after the next day, please call the office to ask if you should come for a repeat exam. [ ] You had photodynamic therapy. The above about retinal laser applies but you need to stay out ofsunlight for about two days or you can get severe sunburn; we will give you protective eyewear and a hat when you leave. Be sure to wear long sleeve clothing on the treatment day. Regular house lights and watching TV at home are fine. For Questions or an Appointment, please call: [phone] Visit us online at [email or web address]. documented in this encounterK[facility]04-04-2024 History of Present illness Narrative* Dejuan Montalvo MD, PhD - 09/03/2023 1:15 PM EDT Referred by Dr. Rivera for diabetic retinopathy eval Former patient of Dr. Cali Churchill (last visit 07/2014) 1. 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 S/p Panretinal laser photocoagulation Both Eyes multiple sessions per patient History recurrent vitreous hemorrhage OD S/p phacoemulsification/intraocular lens/Pars plana vitrectomy (PPV)/Tractional retinal detachment repair 01/09/11 (Eliezer Churchill/[facility]) OS S/p CEIOL in [place] H/o vitreous heme right eye-scant residual heme today 2. Pseudophakia both eyes -posterior capsular opacity (PCO) right eye -has appt with Dr. Christensen for YAG eval Plan: No cystoid macular edema OU Recent vitreous hemorrhage right eye Jun or Jul 2023 Room for fiPRP anteriorly right eye - fiPRP today If heme recurs once Panretinal laser photocoagulation (PRP) full, could consider Pars plana vitrectomy (PPV) Return in 2 mo I have confirmed and edited as necessary the relevant HPI, ophthalmic history, ROS, and the neuro exam findings as obtained by others. I have seen and examined Zoraida Pires. I have discussed the case and the management of this patient's care with the Resident/Fellow, if applicable. I also have reviewed and agree with the assessment and plan as stated above and agree withall of its relevant components. Dejuan Montalvo MD documented in this encounterK[facility]03-14-2024 History of Present illness Narrative* Hannah Rivera, OD - 08/13/2023 4:15 PM EDT 1. 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 S/p Panretinal laser photocoagulation Both Eyes H/o vitreous heme right eye-resolved No DME on previous OCT Recommended establishing care with Dr. Montalvo in [place] (has appt 09/02 2. Punctate keratitis, bilateral Use artificial tears 2-4x daily and gel nightly 3. PCO (posterior capsular opacification), right +visually significant Refer to Fermin for further eval 4. Pseudophakia Will hold off on spec rx until after retina and PCO eval Follow-up with Shelley as scheduled Hannah Rivera, DOM August 13, 2023 4:15 PM documented in this encounterK[facility]03-04-2024 Miscellaneous Notes* Telephone Encounter - Alisson Marshall Ma - 08/03/2023 11:14 AM EST Patient has been identified by name and date of : Yes, Provider Sandy Braswell MD Date August 03, 2023 Time 11:14 AM Patient phones for refill(s): Requested Prescriptions Pending Prescriptions Disp Refills traZODone (DESYREL) 50 mg tablet 30 tablet 1 Sig: Take 1 tablet by mouth daily at bedtime. prn Date of last office visit in primary care: 01/20/2023 Date of next office visit in primary care: none Please advise. Thank you. Alisson Marshall Ma. documented in this encounterK[facility]02-12-2024 History of Present illness Narrative* Sunday Peng LPN - 07/13/2023 3:55 PM EST Endo notes received and scanned to [employer]. Med list updated. documented in this encounterKet[facility]02-12-2024 History of Present illness Narrative* Sarika Delgado MA - 07/13/2023 12:38 PM EST POPULATION HEALTH NAVIGATION OUTREACH Action/FYI Per last OV 01/20/2023 - last CRCS done at hospital in [facility] - patient to check date Per PCP - patient sees outside Endo for all DM care Patient Identified by Name and : NO Outreach Outcome/Action Unable to reach patient: Left message [employer] message sent Did you use a PCP flex slot to schedule this appointment? No Reason for Outreach Care Gap or Scheduling/Wellness visits Payer: Payor: [employer] MEDICARE / Plan: [email or web address] / Product Type: HMO / Care Gap Reviewed:: Annual Wellness visit Colorectal Cancer Screening Reminder: Reminder note to check Health Maintenance for items below Health Maintenance items due: Spirometry Never done Hepatitis C Screening Never done RSV Vaccine(1 - 1-dose 60+ series) Never done Colorectal Cancer Screening due on 09/22/2017 Pneumococcal Vaccine: 65+(3 of 3 - PPSV23 or PCV20) due on 10/02/2021 Urine Albumin:Creatinine Ratio due on 01/27/2023 Influenza Vaccine(1) due on 01/30/2023 Diabetic Foot Exam due on 01/31/2023 Dilated Retinal Exam due on 02/07/2023 HbA1C due on 03/17/2023 Advance Directive Discussion due on 06/01/2023 Navigation Signature: Sarika Stanford MA July 13, 2023 12:39 PM documented in this encounterK[facility]10-26-2023 Miscellaneous Notes* Telephone Encounter - Nilda Ramos - 03/26/2023 11:46 AM EDT Requested Prescriptions Pending Prescriptions Disp Refills traZODone (DESYREL) 50 mg tablet 30 tablet 1 Sig: Take 1 tablet by mouth daily at bedtime. prn SUMEET 01/20/2023 NOV NOT SCHEDULED AT THIS TIME Nilda Ramos * Telephone Encounter - Ashleigh Lorenzo - 03/26/2023 10:57 AM EDT Patient has been identified by name and date of : Yes Requested Prescriptions Pending Prescriptions Disp Refills traZODone (DESYREL) 50 mg tablet 30 tablet 1 Sig: Take 1 tablet by mouth daily at bedtime. prn RX INSTRUCTIONS: Patient aware RX will be sent to pharmacy. No need to notify patient. Ashleigh Lorenzo documented in this encounterK[facility]09-21-2023 Miscellaneous Notes* Telephone Encounter - Leslye Teresa - 02/19/2023 11:27 AM EDT Patient has been identified by name and date of : Yes Last office visit in this department: 01/20/2023 RX INSTRUCTIONS: Patient aware RX will be sent to pharmacy. No need to notify patient. Patient phones requesting refills as follows: Requested Prescriptions Pending Prescriptions Disp Refills pantoprazole DR (PROTONIX) 40 mg tablet Sig: Take 1 tablet by mouth once daily. Please review and advise. Leslye M He Pss documented in this encounterK[facility]09-15-2023 History of Present illness Narrative* Sarika Delgado MA - 02/13/2023 7:49 AM EDT POPULATION HEALTH NAVIGATION OUTREACH Action/FYI Return in about 3 months (around 04/22/2023). Per last OV - last CRCS done at hospital in [place] - patient to check date Patient Identified by Name and : NO Outreach Outcome/Action Unable to reach patient: Left message [employer] message sent Did you use a PCP flex slot to schedule this appointment? N/A Reason for Outreach Care Gap or Scheduling/Wellness visits Payer: Payor: [employer] MEDICARE / Plan: [email or web address] / Product Type: HMO / Care Gap Reviewed:: Follow-up appointment Colorectal Cancer Screening Diabetic Eye Exam Flu Vaccine Reminder: Reminder note to check Health Maintenance for items below Health Maintenance items due: Spirometry Never done Hepatitis C Screening Never done Colorectal Cancer Screening due on 09/22/2017 Influenza Vaccine(1) due on 01/30/2023 Diabetic Foot Exam due on 01/31/2023 Urine Albumin:Creatinine Ratio due on 02/04/2023 Dilated Retinal Exam due on 02/07/2023 Navigation Signature: Sarika Stanford MA February 13, 2023 7:49 AM documented in this encounterK[facility]08-23-2023 Miscellaneous Notes* Telephone Encounter - Sandy Braswell MD - 01/21/2023 12:15 PM EDT Discussed with patient her urine tox is positive for etoh. She had a beer earlier in the day. She admits to drinking one a few times a week max. Discussed that she should not be mixing etoh with her opiates. Expressed that if I am to continue to write meds, she needs to see pain management as ordered. She will comply. Reviewed other labs. documented in this encounterKettering [facility]08-22-2023 History of Present illness Narrative* Sandy Braswell MD - 01/20/2023 3:41 PM EDT Patient presents with: Recheck: 3 month HPI: Patient presents today for office visit for follow up. See previous ov: Still seeing Dr. Palumbo. Just saw her on Thursday. Sugars have been relatively. Last a1c was 7.1 Still continue to have back pain. Saw Dr. Nielsen, spine med, who felt there was nothing he could dofor her spine. It is inoperable. She has still not gotten into pain management. Reinforced need to do so. She would like to see Dr Winkler. Will repeat controlled substance agreement and do tox screen. She had requested ambien. Again discussed that we should not use it with the hydrocodone. No chest pain No dyspnea. Still seeing cardiology. Bp is stable. Still some stress with her home situation. Had her lung cancer screening. She will verify with her hospital in [facility] when her last colonoscopy. No bowel changes. Chronic pain meds reviewed. Has seen specialist for both. Aware of risks. Only uses a few times a week. Aware of risks. Flaca had gotten a tox screen. Again cautioned her to avoid using with the ambien. Reviewed risks. Would consider pain management agreement if uses more. It helps her to function. PSYCH: uses ambien only a few times a week. As above. Oarrs done. Has a script that she apparently had filled diazepam. Advised to no longer use it because of risks of overdose and that if she continued, we would have to pick one. Still using citalopram. Sees [facility]. No chest pain or shortness of breath. No edema. No dizziness. Mother had colon cancer. Last one was done in [facility]. Was done in the last few years. Last Tsh was normal. MEDICATIONS: Current Outpatient Medications Medication Sig hydroCHLOROthiazide 12.5 mg tablet Take 12.5 mg by mouth every morning. amLODIPine (NORVASC) 5 mg tablet Take 1 tablet by mouth every afternoon. blood sugar diagnostic (BLOOD GLUCOSE TEST) test strip Test blood sugar(s) 3 times daily. Dx: Type 1 DM - Uncontrolled E 10.65 Insulin: Yes gabapentin (NEURONTIN) 800 mg tablet Take 1 tablet by mouth twice daily for 180 days. buPROPion SR (ZYBAN SR; WELLBUTRIN SR) 150 mg 12 hr tablet Take 1 tablet by mouth every 12 hours. isosorbide dinitrate (ISORDIL) 20 mg tablet Take 1 tablet by mouth twice daily. rosuvastatin (CRESTOR) 40 mg tablet Take 1 tablet by mouth once daily. metoprolol succinate ER (TOPROL XL) 100 mg Take 1 tablet by mouth once daily. HYDROcodone-Acetaminophen (NORCO) 7.5-325 mg per tablet Take 1 tablet by mouth every 6 hours as needed for pain for up to 30 days. citalopram (CELEXA) 40 mg tablet Take 1 tablet by mouth once daily. clopidogrel (PLAVIX) 75 mg tablet Take 1 tablet by mouth once daily. albuterol HFA (VENTOLIN HFA) 90 mcg/actuation inhaler Inhale 2 Puffs as instructed every 4 hours asneeded for wheezing/shortness of breath. lisinopril (ZESTRIL) 40 mg tablet Take 40 mg by mouth once daily. FIASP FLEXTOUCH U-100 INSULIN 100 unit/mL (3 mL) pen Inject 12-18 Units subcutaneously three times daily before meals. spironolactone (ALDACTONE) 50 mg tablet Take 50 mg by mouth twice daily. zolpidem (AMBIEN) 5 mg tablet Take 1 tablet by mouth at bedtime as needed for up to [address]op[address] (PROTONIX) 40 mg tablet Take 40 mg by mouth once daily. levothyroxine (SYNTHROID) 100 mcg tablet Take 100 mcg by mouth once daily. insulin glargine (LANTUS) 100 unit/mL injection Inject 80 units subcutaneously in the MORNING and 40 units subcutaneously at BEDTIME. (Patient taking differently: 35 Units every morning. Seeing Dr Palumbo.) Insulin Syringe-Needle U-100 (ULTRA FINE INSULIN) 1 mL 30 x 1/2" syrg use 5 times a day as directed. nitroglycerin sublingual (NITROQUICK) 0.4 mg SL tablet Dissolve 1 tablet under the tongue as needed. DISSOLVE ON TONGUE FOR CHEST PAIN. IF NO PAIN RELIEF, CALL 911 POLYVINYL ALCOHOL (20/20 ARTIFICIAL TEARS OPHTHALMIC) Use in eyes as needed. blood sugar diagnostic test strip Test blood sugars five times daily PEG 400-propylene glycol (SYSTANE ULTRA) 0.4-0.3 % ophthalmic solution Use 1 Drop in both eyes every 2 hours while awake. lisinopril-hydrochlorothiazide (PRINZIDE,ZESTORETIC) 20-12.5 mg per tablet Take 1 tablet by mouth once daily. (Patient not taking: Reported on 09/02/2022) No current facility-administered medications for this visit. ALLERGIES: ALLERGIES Allergen Reactions Enviromental [Other] Itching PAST MEDICAL HISTORY Diagnosis Date Atherosclerosis Cataract both eyes Degenerative disc disease Depression Diabetes mellitus (HCC) Essential hypertension, benign Hemorrhage of gastrointestinal tract, unspecified Impaired circulation of left leg both legs Neuropathy Other acute and subacute form of ischemic heart disease 06/01/1995 Other and unspecified hyperlipidemia Other specified disorders of pancreatic internal secretion PDR (proliferative diabetic retinopathy) (HCC) Pseudophakia of left eye Sleep apnea Unspecified hypothyroidism PAST SURGICAL HISTORY Procedure Laterality Date BALLN ANGIOPLASTY OPEN,FEM-POP COLONOSCOPY FLX DX W/COLLJ SPEC WHEN PFRMD 09/23/2007 Colonoscopy ESOPHAGOGASTRODUODENOSCOPY TRANSORAL DIAGNOSTIC 09/23/2007 EGD PAST SURGICAL HISTORY OF 2005-? Laser Treatments Both Eyes (Ongoing) PERC TRANSL COR ANGIO Percutaneous Transluminal Coronary Angio Status REMV CATARACT EXTRACAP,INSERT LENS Bilateral RMVL LENS MATERIAL PHACOFRAGMENTATION ASPIR os 01/09/2011 Cataract Extraction STENT PLACEMENT 06/01/1995 with HI VITRECTOMY MECHANICAL PARS PLANA os 01/09/2011 [place] Vitrectomy WRIST SPLINT carpal tunnel on R FAMILY HISTORY Problem Relation Age of Onset Lipids Mother Allergies Mother Arthritis Mother Breast Cancer Mother Cancer Mother stomach COPD Mother Hypertension Mother Thyroid Mother Psychiatry Mother depression Cataract Mother Diabetes Father Prostate Lipids Father Allergies Father Cancer Father stomach Prostate Cancer Father Hypertension Father Stroke Father Thyroid Sister Allergies Sister Cervical Cancer Sister Hypertension Brother Allergies Brother Diabetes Maternal Uncle Social History Tobacco Use Smoking status: Every Day Packs/day: 1.00 Years: 20.00 Additional pack years: 0.00 Total pack years: 20.00 Types: Cigarettes Smokeless tobacco: Never Tobacco comments: Down to about 1/2 a pack a day Vaping Use Vaping Use: Never used Substance Use Topics Alcohol use: No Drug use: No Reviewed current medications, allergies, past medical history, surgical history, family history andsocial history today. REVIEW OF SYSTEMS As above HEALTH MAINTENANCE: Reviewed health maintenance issues today and recommended the following in detail. SPIROMETRY Never done HEPATITIS C SCREENING Never done ALPHA-1 ANTITRYPSIN DEFICIENCY SCREENING Never done COLORECTAL CANCER SCREENING due on 09/22/2017 LDL CHOLESTEROL due on 11/13/2022 LUNG CANCER SCREENING due on 11/18/2022 DIABETIC FOOT EXAM due on 01/31/2023 URINE ALBUMIN:CREATININE RATIO due on 02/04/2023 DILATED RETINAL EXAM due on 02/07/2023 VITALS: BP 110/60 Pulse 61 Resp 16 Wt 61.2 kg (135 lb) SpO2 97% BMI 26.37 kg/m Last 4 Encounter Wt Readings: Date: Wt: 01/20/2023 61.2 kg (135 lb) 09/19/2022 59.9 kg (132 lb) 09/02/2022 61.7 kg (136 lb) 07/14/2022 59.4 kg (131 lb) PHYSICAL EXAMINATION: General appearance: Well appearing, alert, in no acute distress, well-hydrated, well nourished. Skin: Skin color, texture, turgor normal, no suspicious rashes or lesions Head: Normocephalic, no masses, lesions, tenderness or abnormalities Lungs: Lungs clear to auscultation. No wheezing, rhonchi, rales Heart: RRR without murmur, gallop, or rubs. No ectopy Abdomen: Normal abdominal exam, Abdomen soft, non-tender. Bowel sounds normal. No masses, organomegaly Extremities: No deformities, edema, skin discoloration, clubbing or cyanosis. Good capillary refill. ASSESSMENT/PLAN: 1. 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) - ICD9: 250.61, 357.2, ICD10: E10.40 (primary diagnosis) - continue to see Dr Palumbo. - CBC + DIFF - COMP METABOLIC PANEL 2. DDD (degenerative disc disease), lumbar - ICD9: 722.52, ICD10: M51.36 - Discussed risks and benefits of new medication with the patient. Advised them to call if any sideeffects or questions. . - HYDROCODONE 7.5 MG-ACETAMINOPHEN 325 MG TABLET - CONSULT TO PAIN MGT 3. Coronary artery disease involving [place] heart without angina pectoris, unspecified vessel or lesion type - ICD9: 414.01, ICD10: I25.10 - continue meds. 4. Primary hypertension - ICD9: 401.9, ICD10: I10 - Controlled 5. Hyperlipidemia, unspecified hyperlipidemia type - ICD9: 272.4, ICD10: E78.5 - Controlled - Continue current medications 6. Obstructive sleep apnea - ICD9: 327.23, ICD10: G47.33 - stable. 7. Chronic obstructive pulmonary disease, unspecified COPD type ([facility]) - ICD9: 496, ICD10: J44.9 - stable. 8. Gastroesophageal reflux disease without esophagitis - ICD9: 530.81, ICD10: K21.9 - continue meds. 9. Stage 3 chronic kidney disease, unspecified whether stage 3a or 3b CKD ([facility]) - ICD9: 585.3, ICD10: N18.30 - follow progress. 10. Type 1 diabetes mellitus with proliferative retinopathy, macular edema presence unspecified, unspecified laterality, unspecified proliferative retinopathy type (HCC) - ICD9: 250.51, 362.02, ICD10: E10.3599 - stable. 11. Hypothyroidism, unspecified type - ICD9: 244.9, ICD10: E03.9 - continue meds. - TSH BLD - LIPID PANEL, NONFASTING 12. Generalized anxiety disorder - ICD9: 300.02, ICD10: F41.1 - stable. 13. Depression, unspecified depression type - ICD9: 311, ICD10: F32.A - continue meds. 14. Medication monitoring encounter - ICD9: V58.83, ICD10: Z51.81 - TOX SCREEN ROUT UR Sandy Braswell MD documented in this encounterK[facility]07-[facility]-2023 Miscellaneous Notes* Telephone Encounter - Sunday Peng LPN - 12/04/2022 1:53 PM EDT Order faxed to [facility]. Sunday Peng LPN * Telephone Encounter - Марина Gibson - 12/04/2022 12:59 PM EDT Pt would like this faxed to [facility]. She said they have a van that comes to get her for appts and [facility] does not. Please fax orders * Telephone Encounter - Kandi Saldana Pss - 12/03/2022 12:40 PM EDT LVM to call back to try to schedule [facility].Kandi Saldana Pss * Telephone Encounter - Sandy Braswell MD - 11/27/2022 5:10 PM EDT Ok. Set up with the clinic. * Telephone Encounter - Radha Butler Ma - 11/27/2022 3:13 PM EDT She tests about 3 times a day * Telephone Encounter - Sandy Braswell MD - 11/27/2022 2:08 PM EDT Would need to see the lung cancer screening clinic. Verify how often she is testing sugars currently. * Telephone Encounter - Ramona Burger LPN - 11/27/2022 1:03 PM EDT Pt states she gets a low dose lung screen CT every year & she is due for it now. States she previously got this done yearly in [facility]. She is also requesting a new glucometer & strips, pending. Ramona Burger LPN documented in this encounterK[facility]06-29-2023 Miscellaneous Notes* Letter - Mammography Coordinator - 11/27/2022 1:11 PM EDT November 28, 2022 PID: [id number] Zoraida Pires [address] [place] [address] Dear Ms. Pires, We are pleased to inform you that the results of your recent breast imaging exam on 11/26/2022 are normal. Early detection of cancer is very important. We also understand recommendations regarding breast cancer screening are controversial. Please discuss with your primary care provider which strategy is best for you and whether a mammogram is right for you. Your imaging studies and report will be kept on file at [facility] as part of your permanent medical record and are available for your continuing care. Thank you for allowing us to help in meeting your health care needs. Sincerely, Dr. Rojas Interpreting Radiologist [facility] (Normal over 40) documented in this encounterKettering [facility]06-28-2023 History of Present illness Narrative* Rosaura Waldrop RT(R) - 11/26/2022 4:00 PM EDT Radiology Service Progress Note PATIENT NAME: Zoraida Pires DATE OF SERVICE: November 26, 2022 TIME: 3:56 PM PATIENT IDENTITY VERIFICATION COMPLETED USING TWO (2) IDENTIFIERS: Name and Date of confirmedby patient verbally. FALL SCREENING: Has the patient had 2 falls in the last year or 1 fall with injury or currently using an Ambulatory Assistive Device (Walker, Cane, Wheelchair, Crutches, etc.)? No PATIENT GENDER DATA: Female. status: : No status: NO. PATIENT RELEVANT IMPLANT DATA REVIEWED: Not Applicable RADIOLOGY DEPARTMENT: Mammography PERIPHERAL IV DATA: Not applicable SIGNED BY: RT Fallon(R) November 26, 2022 3:56 PM documented in this encounterKet[facility]06-20-2023 Miscellaneous Notes* Telephone Encounter - Abisai Keenan RN - 11/18/2022 4:30 PM EDT Patient has been identified by name and date of : Yes, Provider [place] Date 11-18-22 Time 4:31 pm Patient phones for refill(s): Requested Prescriptions Pending Prescriptions Disp Refills citalopram (CELEXA) 40 mg tablet 90 tablet 1 Sig: Take 1 tablet by mouth once daily. Date of last office visit with pcp: 09-19-22. Next appt: 12-19-22 Date of last office visit in primary care: patient reports she has 3 pills left. Last 2 Encounter Wt Readings: Date: Wt: 09/19/2022 59.9 kg (132 lb) 09/02/2022 61.7 kg (136 lb) Previous labs/tests for medication: Blood Pressure: BUN (mg/dL) Date Value 01/27/2022 18 06/29/2014 13 Sodium (mmol/L) Date Value 01/27/2022 139 06/29/2014 140 Last 1 Encounter BP Readings: Date: BP: 09/19/2022 122/58 Liver Function: ALT (U/L) Date Value 06/29/2014 28 AST (U/L) Date Value 06/29/2014 28 Please advise. Thank you. Abisai Keenan RN documented in this encounterK[facility]06-20-2023 Miscellaneous Notes* Telephone Encounter - Yessi Talamantes LPN - 11/18/2022 3:33 PM EDT Patient has been identified by name and date of : Yes, Provider Dr. Braswell Date 11/18/22 Time 3:34 pm Patient phones for refill(s): Requested Prescriptions Pending Prescriptions Disp Refills HYDROcodone-Acetaminophen (NORCO) 7.5-325 mg per tablet 60 tablet 0 Sig: Take 1 tablet by mouth every 6 hours as needed for pain for up to 30 days. Date of last office visit in primary care: 09/19/22 next apt 12/19/22 Last 2 Encounter Wt Readings: Date: Wt: 09/19/2022 59.9 kg (132 lb) 09/02/2022 61.7 kg (136 lb) Previous labs/tests for medication: Not applicable Thank you. Yessi Talamantes LPN documented in this encounterKet[facility]04-28-2023 History of Present illness Narrative* Reef Claudine Minor RT(R) - 09/26/2022 10:20 AM EDT Radiology Service Progress Note PATIENT NAME: Zoraida Pires DATE OF SERVICE: September 26, 2022 TIME: 2:39 PM PATIENT IDENTITY VERIFICATION COMPLETED USING TWO (2) IDENTIFIERS: Name and Date of confirmedby patient verbally. FALL SCREENING: Has the patient had 2 falls in the last year or 1 fall with injury or currently using an Ambulatory Assistive Device (Walker, Cane, Wheelchair, Crutches, etc.)? No PATIENT GENDER DATA: Female. status: : No status: NO. PATIENT RELEVANT IMPLANT DATA REVIEWED: Yes RADIOLOGY DEPARTMENT: CT; Exam(s) Completed: Abdomen/Pelvis PERIPHERAL IV DATA: Not applicable SIGNED BY: RT Pablo(R) September 26, 2022 2:39 PM documented in this encounterKet[facility]04-28-2023 Miscellaneous Notes* Telephone Encounter - Nina Simons LPN - 09/26/2022 9:24 AM EDT Patient states that no glucose tabs. Advised could try a small piece of candy. Again stressed to her that only should do this if symptomatic. Patient asking about drinking Pepsi. Advised her that no can NOT drink Pepsi. If she is symptomatic may just need to eat and reschedule. Patient states she is just nervous. Advised her to bring snack so that she can eat after having test completed today. Verbalizes understanding. * Telephone Encounter - Sandy Braswell MD - 09/26/2022 9:17 AM EDT Can't really eat anything. Could use like a glucose tab. I cant guarantee that they wont cancel thect though * Telephone Encounter - Angi Martínez LPN - 09/26/2022 9:13 AM EDT Patient has a CT scan at 10:20 and she has not been able to eat or drink. Her blood sugar 90 and would like to know if she can do anything to bring it up. She is not having any low blood sugar symptoms at the moment. She will being leaving her house at 9:30 and would like to know before that would she should do. Please advise. documented in this encounterK[facility]04-26-2023 Miscellaneous Notes* Telephone Encounter - Sunday Peng LPN - 09/24/2022 2:09 PM EDT Patient phones requesting refills as follows: Requested Prescriptions Pending Prescriptions Disp Refills clopidogrel (PLAVIX) 75 mg tablet 90 tablet 3 Sig: Take 1 tablet by mouth once daily. SUMEET 09/19/22 NOV 12/19/22 Please review and advise. Sunday Peng LPN documented in this encounterK[facility]04-21-2023 History of Present illness Narrative* Sandy Braswell MD - 09/19/2022 3:49 PM EDT Patient presents with: Follow Up: Has scan on legs follow up scheduled with Dr Saba arenas to get results. MRI of back scheduled is seeing Dr Nielsen for this. HPI: Patient presents today for office visit for follow up. Still seeing Dr. Palumbo. Just saw her on Thursday. Sugars have been relatively. Last a1c was 7.1 Chronic pain meds reviewed. Has seen specialist for both. Aware of risks. Only uses a few times a week. Aware of risks. Flaca had gotten a tox screen. Again cautioned her to avoid using with the ambien. Reviewed risks. Would consider pain management agreement if uses more. It helps her to function. PSYCH: uses ambien only a few times a week. As above. Oarrs done. Has a script that she apparently had filled diazepam. Advised to no longer use it because of risks of overdose and that if she continued, we would have to pick one. Still using citalopram. Sees [facility]. No chest pain or shortness of breath. No edema. No dizziness. Mother had colon cancer. Last one was done in [facility]. Was done in the last few years. Last Tsh was normal. MEDICATIONS: Current Outpatient Medications Medication Sig lisinopril (ZESTRIL) 40 mg tablet Take 40 mg by mouth once daily. HYDROcodone-Acetaminophen (NORCO) 7.5-325 mg per tablet Take 1 tablet by mouth every 6 hours as needed for pain for up to 30 days. FIASP FLEXTOUCH U-100 INSULIN 100 unit/mL (3 mL) pen INJECT 18 UNITS SUBCUTANEOUSLY 3 TIMES DAILY spironolactone (ALDACTONE) 50 mg tablet Take 50 mg by mouth twice daily. zolpidem (AMBIEN) 5 mg tablet Take 1 tablet by mouth at bedtime as needed for up to 7 days. for insomnia. citalopram (CELEXA) 40 mg tablet Take 1 tablet by mouth once daily. PEG 400-propylene glycol (SYSTANE ULTRA) 0.4-0.3 % ophthalmic solution Use 1 Drop in both eyes every 2 hours while awake. rosuvastatin (CRESTOR) 40 mg tablet Take 40 mg by mouth once daily. pantoprazole DR (PROTONIX) 40 mg tablet Take 40 mg by mouth once daily. buPROPion SR (ZYBAN SR; WELLBUTRIN SR) 150 mg 12 hr tablet Take 150 mg by mouth every 12 hours. levothyroxine (SYNTHROID) 100 mcg tablet Take 100 mcg by mouth once daily. VENTOLIN HFA 90 mcg/actuation inhaler Inhale as instructed. LYUMJEV U-100 INSULIN 100 unit/mL solution Inject 12-15 Units subcutaneously w MEALS. insulin glargine (LANTUS) 100 unit/mL injection Inject 80 units subcutaneously in the MORNING and 40 units subcutaneously at BEDTIME. (Patient taking differently: Inject 80 units subcutaneously in the MORNING and 40 units subcutaneously at BEDTIME. Takes 48 units every morning) clopidogrel (PLAVIX) 75 mg tablet Take 1 tablet by mouth once daily. metoprolol succinate ER (TOPROL XL) 100 mg Tb24 Take 1 tablet by mouth once daily. isosorbide dinitrate (ISORDIL, SORBITRATE) 20 mg tablet Take 1 tablet by mouth twice daily. lisinopril-hydrochlorothiazide (PRINZIDE,ZESTORETIC) 20-12.5 mg per tablet Take 1 tablet by mouth once daily. (Patient not taking: Reported on 09/02/2022) gabapentin (NEURONTIN) 800 mg tablet Take 1 tablet by mouth twice daily. Insulin Syringe-Needle U-100 (ULTRA FINE INSULIN) 1 mL 30 x 1/2" syrg use 5 times a day as directed. nitroglycerin sublingual (NITROQUICK) 0.4 mg SL tablet Dissolve 1 tablet under the tongue as needed. DISSOLVE ON TONGUE FOR CHEST PAIN. IF NO PAIN RELIEF, CALL 911 blood sugar diagnostic (TRUETEST TEST STRIPS) test strip Test blood sugar 4 times daily. dx 250.00,insulin usage-yes (Patient taking differently: Test blood sugar 4 times daily. dx 250.00, insulin usage-yes Takes blood sugars around three times daily) POLYVINYL ALCOHOL (20/20 ARTIFICIAL TEARS OPHTHALMIC) Use in eyes as needed. blood sugar diagnostic test strip Test blood sugars five times daily calcium carbonate/vitamin d3(CALCIUM 600 + D 600 MG-400 UNIT TAB) Take by mouth. No current facility-administered medications for this visit. ALLERGIES: ALLERGIES Allergen Reactions Enviromental [Other] Itching PAST MEDICAL HISTORY Diagnosis Date Atherosclerosis Cataract both eyes Degenerative disc disease Depression Diabetes mellitus (HCC) Essential hypertension, benign Hemorrhage of gastrointestinal tract, unspecified Impaired circulation of left leg both legs Neuropathy Other acute and subacute form of ischemic heart disease 06/01/1995 Other and unspecified hyperlipidemia Other specified disorders of pancreatic internal secretion PDR (proliferative diabetic retinopathy) (HCC) Pseudophakia of left eye Sleep apnea Unspecified hypothyroidism PAST SURGICAL HISTORY Procedure Laterality Date BALLN ANGIOPLASTY OPEN,FEM-POP COLONOSCOPY FLX DX W/COLLJ SPEC WHEN PFRMD 09/23/2007 Colonoscopy ESOPHAGOGASTRODUODENOSCOPY TRANSORAL DIAGNOSTIC 09/23/2007 EGD PAST SURGICAL HISTORY OF 2004-? Laser Treatments Both Eyes (Ongoing) PERC TRANSL COR ANGIO Percutaneous Transluminal Coronary Angio Status REMV CATARACT EXTRACAP,INSERT LENS Bilateral RMVL LENS MATERIAL PHACOFRAGMENTATION ASPIR os 01/09/2011 Cataract Extraction STENT PLACEMENT 06/01/1995 with HI VITRECTOMY MECHANICAL PARS PLANA os 01/09/2011 [place] Vitrectomy WRIST SPLINT carpal tunnel on R FAMILY HISTORY Problem Relation Age of Onset Lipids Mother Allergies Mother Arthritis Mother Breast Cancer Mother Cancer Mother stomach COPD Mother Hypertension Mother Thyroid Mother Psychiatry Mother depression Cataract Mother Diabetes Father Prostate Lipids Father Allergies Father Cancer Father stomach Prostate Cancer Father Hypertension Father Stroke Father Thyroid Sister Allergies Sister Cervical Cancer Sister Hypertension Brother Allergies Brother Diabetes Maternal Uncle Social History Tobacco Use Smoking status: Every Day Packs/day: 1.00 Years: 20.00 Pack years: 20.00 Types: Cigarettes Smokeless tobacco: Never Tobacco comments: Down to about 1/2 a pack a day Vaping Use Vaping Use: Never used Substance Use Topics Alcohol use: No Drug use: No Reviewed current medications, allergies, past medical history, surgical history, family history andsocial history today. REVIEW OF SYSTEMS All other reviewed and negative other than HPI. HEALTH MAINTENANCE: Reviewed health maintenance issues today and recommended the following in detail. HBA1C due on 05/15/2022 ADVANCE DIRECTIVE DISCUSSION - discussed. MAMMOGRAM due on 11/15/2022 VITALS: BP 122/58 Pulse (!) 59 Wt 59.9 kg (132 lb) SpO2 96% BMI 25.78 kg/m Last 4 Encounter Wt Readings: Date: Wt: 09/02/2022 61.7 kg (136 lb) 07/14/2022 59.4 kg (131 lb) 04/29/2022 61.7 kg (136 lb) 03/07/2022 61.3 kg (135 lb 3.2 oz) PHYSICAL EXAMINATION: General appearance: Well appearing, alert, in no acute distress, well-hydrated, well nourished. Skin: Skin color, texture, turgor normal, no suspicious rashes or lesions Head: Normocephalic, no masses, lesions, tenderness or abnormalities Back: Normal exam Lungs: Lungs clear to auscultation. No wheezing, rhonchi, rales Heart: RRR without murmur, gallop, or rubs. No ectopy Abdomen: Normal abdominal exam, Abdomen soft, non-tender. Bowel sounds normal. No masses, organomegaly Extremities: No deformities, edema, skin discoloration, clubbing or cyanosis. Good capillary refill. ASSESSMENT/PLAN: 1. 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) - ICD9: 250.61, 357.2, ICD10: E10.40 (primary diagnosis) - per endo. 2. Insomnia, unspecified type - ICD9: 780.52, ICD10: G47.00 - use ambien prn. 3. Hyperlipidemia, unspecified hyperlipidemia type - ICD9: 272.4, ICD10: E78.5 - good control - Continue current medication. 4. Primary hypertension - ICD9: 401.9, ICD10: I10 - good control - Goal of BP <130/80 5. Coronary artery disease involving [place] heart without angina pectoris, unspecified vessel or lesion type - ICD9: 414.01, ICD10: I25.10 - continue current meds. 6. Chronic obstructive pulmonary disease, unspecified COPD type ([facility]) - ICD9: 496, ICD10: J44.9 - ALBUTEROL SULFATE HFA 90 MCG/ACTUATION AEROSOL INHALER 7. Obstructive sleep apnea - ICD9: 327.23, ICD10: G47.33 - as above. 8. Gastroesophageal reflux disease without esophagitis - ICD9: 530.81, ICD10: K21.9 - stable. 9. Stage 3 chronic kidney disease, unspecified whether stage 3a or 3b CKD ([facility]) - ICD9: 585.3, ICD10: N18.30 - stable. 10. Hypothyroidism, unspecified type - ICD9: 244.9, ICD10: E03.9 - follow progress 11. Type 1 diabetes mellitus with proliferative retinopathy, macular edema presence unspecified, unspecified laterality, unspecified proliferative retinopathy type ([facility]) - ICD9: 250.51, 362.02, ICD10: E10.3599 12. Generalized anxiety disorder - ICD9: 300.02, ICD10: F41.1 - continue meds. No benzos 13. Screening breast examination - ICD9: V76.10, ICD10: Z12.39 - Follow up for annual exam in one year. - ABEBE SCREENING 14. Family history of colon cancer - ICD9: V16.0, ICD10: Z80.0 - check on colonoscopy Sandy Braswell MD RTO in three months or prn documented in this encounterK[facility]04-12-2023 Miscellaneous Notes* Telephone Encounter - Adelia Hernandez LPN - 09/10/2022 2:26 PM EDT Patient phones requesting refills as follows: Requested Prescriptions Pending Prescriptions Disp Refills HYDROcodone-Acetaminophen (NORCO) 7.5-325 mg per tablet 60 tablet 0 Sig: Take 1 tablet by mouth every 6 hours as needed for pain for up to 30 days. SUMEET-07/14/22 Labs-08/14/22 NOV-09/19/22 med filled 07/14/22 Please review and advise. Adelia Hernandez LPN documented in this encounterK[facility]04-05-2023 History of Present illness Narrative* Adriel Solis MD - 09/03/2022 8:12 AM EDT HISTORY AND PHYSICAL Zoraida Pires 1950 REFERRING PHYSICIAN: Flaca Fischer APRN.C* CHIEF COMPLAINT: Consult (Ventral hernia) HPI: Zoraida is a 71 year old female with a complaint of a bulge and discomfort in her prior transverse right upper quadrant incision at the medial aspect of the incision. The patient notes discomfortin this area with lifting and coughing. The symptoms have increased, over the past few months. The patient notes no symptoms of bowel obstruction and denies nausea or vomiting. The patient was seen by Flaca Fischer who felt the patient has a hernia. Zoraida was referred for evaluation and treatment. The patient has diabetes. She smokes 1/2 pack of cigarettes per day but is attempting to quit. She notes no other bulges. She has a history of peripheral vascular disease and is being evaluated for possible stent placement. She had a history of myocardial infarction with coronary angioplasty. She takes Plavix. The patient is being seen by me today at the request of Flaca Fischer APRN.C* my opinion and advice regarding an incisional hernia. PAST MEDICAL HISTORY Diagnosis Date Atherosclerosis Cataract both eyes Degenerative disc disease Depression Diabetes mellitus (HCC) Essential hypertension, benign Hemorrhage of gastrointestinal tract, unspecified Impaired circulation of left leg both legs Neuropathy Other acute and subacute form of ischemic heart disease 06/01/1995 Other and unspecified hyperlipidemia Other specified disorders of pancreatic internal secretion PDR (proliferative diabetic retinopathy) (HCC) Pseudophakia of left eye Sleep apnea Unspecified hypothyroidism PAST SURGICAL HISTORY Procedure Laterality Date BALLN ANGIOPLASTY OPEN,FEM-POP COLONOSCOPY FLX DX W/COLLJ SPEC WHEN PFRMD 09/23/2007 Colonoscopy ESOPHAGOGASTRODUODENOSCOPY TRANSORAL DIAGNOSTIC 09/23/2007 EGD PAST SURGICAL HISTORY OF 2005-? Laser Treatments Both Eyes (Ongoing) PERC TRANSL COR ANGIO Percutaneous Transluminal Coronary Angio Status REMV CATARACT EXTRACAP,INSERT LENS Bilateral RMVL LENS MATERIAL PHACOFRAGMENTATION ASPIR os 01/09/2011 Cataract Extraction STENT PLACEMENT 06/01/1995 with HI VITRECTOMY MECHANICAL PARS PLANA os 01/09/2011 [place] Vitrectomy WRIST SPLINT carpal tunnel on R Current Outpatient Medications Medication Sig FIASP FLEXTOUCH U-100 INSULIN 100 unit/mL (3 mL) pen INJECT 18 UNITS SUBCUTANEOUSLY 3 TIMES DAILY spironolactone (ALDACTONE) 50 mg tablet Take 50 mg by mouth twice daily. HYDROcodone-Acetaminophen (NORCO) 7.5-325 mg per tablet Take 1 tablet by mouth every 6 hours as needed for pain for up to 30 days. zolpidem (AMBIEN) 5 mg tablet Take 1 tablet by mouth at bedtime as needed for up to 7 days. for insomnia. citalopram (CELEXA) 40 mg tablet Take 1 tablet by mouth once daily. PEG 400-propylene glycol (SYSTANE ULTRA) 0.4-0.3 % ophthalmic solution Use 1 Drop in both eyes every 2 hours while awake. rosuvastatin (CRESTOR) 40 mg tablet Take 40 mg by mouth once daily. pantoprazole DR (PROTONIX) 40 mg tablet Take 40 mg by mouth once daily. buPROPion SR (ZYBAN SR; WELLBUTRIN SR) 150 mg 12 hr tablet Take 150 mg by mouth every 12 hours. levothyroxine (SYNTHROID) 100 mcg tablet Take 100 mcg by mouth once daily. VENTOLIN HFA 90 mcg/actuation inhaler Inhale as instructed. insulin glargine (LANTUS) 100 unit/mL injection Inject 80 units subcutaneously in the MORNING and 40 units subcutaneously at BEDTIME. (Patient taking differently: Inject 80 units subcutaneously in the MORNING and 40 units subcutaneously at BEDTIME. Takes 48 units every morning) clopidogrel (PLAVIX) 75 mg tablet Take 1 tablet by mouth once daily. metoprolol succinate ER (TOPROL XL) 100 mg Tb24 Take 1 tablet by mouth once daily. isosorbide dinitrate (ISORDIL, SORBITRATE) 20 mg tablet Take 1 tablet by mouth twice daily. gabapentin (NEURONTIN) 800 mg tablet Take 1 tablet by mouth twice daily. Insulin Syringe-Needle U-100 (ULTRA FINE INSULIN) 1 mL 30 x 1/2" syrg use 5 times a day as directed. nitroglycerin sublingual (NITROQUICK) 0.4 mg SL tablet Dissolve 1 tablet under the tongue as needed. DISSOLVE ON TONGUE FOR CHEST PAIN. IF NO PAIN RELIEF, CALL 911 POLYVINYL ALCOHOL (20/20 ARTIFICIAL TEARS OPHTHALMIC) Use in eyes as needed. blood sugar diagnostic test strip Test blood sugars five times daily lisinopril (ZESTRIL) 40 mg tablet Take 40 mg by mouth once daily. LYUMJEV U-100 INSULIN 100 unit/mL solution Inject 12-15 Units subcutaneously w MEALS. lisinopril-hydrochlorothiazide (PRINZIDE,ZESTORETIC) 20-12.5 mg per tablet Take 1 tablet by mouth once daily. (Patient not taking: Reported on 09/02/2022) blood sugar diagnostic (TRUETEST TEST STRIPS) test strip Test blood sugar 4 times daily. dx 250.00,insulin usage-yes (Patient taking differently: Test blood sugar 4 times daily. dx 250.00, insulin usage-yes Takes blood sugars around three times daily) calcium carbonate/vitamin d3(CALCIUM 600 + D 600 MG-400 UNIT TAB) Take by mouth. No current facility-administered medications for this visit. ALLERGIES: Enviromental [Other] PERSONAL HISTORY: Social History Tobacco Use Smoking status: Every Day Packs/day: 1.00 Years: 20.00 Pack years: 20.00 Types: Cigarettes Smokeless tobacco: Never Tobacco comments: Down to about 1/2 a pack a day Vaping Use Vaping Use: Never used Substance Use Topics Alcohol use: No Drug use: No FAMILY HISTORY: FAMILY HISTORY Problem Relation Age of Onset Lipids Mother Allergies Mother Arthritis Mother Breast Cancer Mother Cancer Mother stomach COPD Mother Hypertension Mother Thyroid Mother Psychiatry Mother depression Cataract Mother Diabetes Father Prostate Lipids Father Allergies Father Cancer Father stomach Prostate Cancer Father Hypertension Father Stroke Father Thyroid Sister Allergies Sister Cervical Cancer Sister Hypertension Brother Allergies Brother Diabetes Maternal Uncle REVIEW OF SYMPTOMS: The review of systems data was entered by the nurse and reviewed by me Nursing Notes: Raquel Franco LPN 09/02/2022 2:20 PM Signed REVIEW OF SYSTEMS: General: The patient notes fatigue, denies weight loss, denies weight gain, notes feeling hot, and notes feelings of cold. Eyes: The patient denies glaucoma, denies eye injury/surgery, wears glasses or contacts. Ear/Nose/Throat: The patient notes allergies, denies hayfever, denies ear infections, and denies bloody noses. Cardiovascular: The patient denies chest pain, notes heart disease, notes high blood pressure,notescardiac stent, notes prior heart attack, denies irregular heart beat, notes high cholesterol, notespoor circulation, denies heart failure, other cardiac issues, notes claudication, notes cold feet, denies peripheral arterial stent. Respiratory: The patient denies tuberculosis, denies pneumonia, denies frequent cough, denies pulmonary embolism, notes shortness of breath, and denies coughing up blood. Gastrointestinal: The patient denies difficulty swallowing, notes acid reflux, denies ulcers, denies vomiting, denies jaundice/hepatitis, denies gallbladder problems, denies black or tarry stools, denies hemorrhoids, denies bleeding from rectum, denies diverticulitis, notes constipation, denies diarrhea, denies loss of stool control, and notes hernias. Kidney/Bladder: The patient denies kidney stones, denies urine infections, and denies bloody urine. Skin: The patient denies a history of skin cancer, notes bleeding/changing moles, and denies a history of skin rash. Neurologic: The patient denies a history of epilepsy/convulsions, denies headaches, denies head/spinal injuries, and denies stroke/TIA. Psychiatric: The patient denies psychiatric medications, denies depression, and denies voices, denies substance abuse. Endocrine: The patient notes thyroid disorders, notes diabetes, and denies hormonal problems. Hematologic: The patient notes a history of bruising, denies bleeding, and denies anemia, denies blood clots. Infections: The patient notes a history of measles and mumps, denies rheumatic fever, and denies sexually transmitted diseases. Musculoskeletal: The patient notes back pain/injury, notes back problems, notes sciatica, denies knee/foot trouble, notes arthritis, or denies gout. When was patient's last Mammogram screening? 2021 Last Colonoscopy: 2019 Raquel Franco LPN PHYSICAL EXAMINATION: General: The patient is 71 year old female, well nourished, well hydrated in no acute distress. Thepatient is oriented to time, place, and person. VITALS: Blood pressure 128/58, pulse 70, temperature 37 C (98.6 F), height 152.4 cm (5'), weight 61.7 kg (136 lb), SpO2 98 %. Body mass index is 26.56 kg/m . HEENT: Normal cephalic, ataumatic, pupils are equally round, sclera are anicteric, mucous membranesare moist, oropharynx is clear. Neck has no masses, asymmetry or lymphadenopathy. Thyroid is unremarkable. Respiratory: Clear to auscultation and percussion. Normal respiratory excursion and pattern. Cardiac: Examination is regular rate and rhythm. Abdominal exam: Soft, nontender, with no palpable masses. No hepatosplenomegaly. A moderate partially reducible incisional hernia along the medial aspect of the transverse incision in the right upperquadrant no other palpable hernias are noted at that site. Rectal exam: exam deferred Extremities: no clubbing, cyanosis or edema. No adenopathy. Other: LABORATORY VALUES: As Noted RADIOLOGIC STUDIES: As Noted Intraoffice ultrasound demonstrates the hernia site with a relatively narrow neck and what appears to be intra-abdominal fat. Through it. I do not see other defects along the lateral aspect of the incision Assessment IMPRESSION: prior right upper quadrant incisional incisional hernia PLAN: I plan to obtain a CT scan of the abdomen pelvis since she had additional abdominal surgical procedures to assess for additional occult hernias. The patient will need to quit smoking prior to surgery she understands the rationale for this. She is attempting to quit currently. My plan is to perform a laparoscopic incisional hernia repair with mesh. The planned surgical procedure was discussed extensively with the patient. The risks, benefits, anticipated outcomes and possible complications were mentioned. Zoraida rodriguezands that all hernia repair surgery has a chance of recurrence and/or chronic post operative pain. My staff has also explained the procedure in understandable terms and the patient was given the option to take printed material concerning the planned procedure. The patient had the opportunity to ask questions concerning the planned procedure. The patient freely consents to the planned procedure. All tobacco/nicotine use needs to be completely stopped at least 4 weeks prior to surgery and not used in any form for 8 weeks following surgery due to nicotine's prevention of appropriate wound healing My findings have been communicated to [facility] via shared medical record. This note will be forwardedto Sandy Braswell MD. Diagnoses: (K43.2) Incisional hernia, without obstruction or gangrene (primary encounter diagnosis) Return to Clinic: The patient is instructed to follow-up with me after CT scan when she has quit smoking.. Adriel Solis MD documented in this encounterK[facility] Nurse Note* Raquel Franco, JULIANA - 09/02/2022 2:15 PM EDT REVIEW OF SYSTEMS: General: The patient notes fatigue, denies weight loss, denies weight gain, notes feeling hot, and notes feelings of cold. Eyes: The patient denies glaucoma, denies eye injury/surgery, wears glasses or contacts. Ear/Nose/Throat: The patient notes allergies, denies hayfever, denies ear infections, and denies bloody noses. Cardiovascular: The patient denies chest pain, notes heart disease, notes high blood pressure,notescardiac stent, notes prior heart attack, denies irregular heart beat, notes high cholesterol, notespoor circulation, denies heart failure, other cardiac issues, notes claudication, notes cold feet, denies peripheral arterial stent. Respiratory: The patient denies tuberculosis, denies pneumonia, denies frequent cough, denies pulmonary embolism, notes shortness of breath, and denies coughing up blood. Gastrointestinal: The patient denies difficulty swallowing, notes acid reflux, denies ulcers, denies vomiting, denies jaundice/hepatitis, denies gallbladder problems, denies black or tarry stools, denies hemorrhoids, denies bleeding from rectum, denies diverticulitis, notes constipation, denies diarrhea, denies loss of stool control, and notes hernias. Kidney/Bladder: The patient denies kidney stones, denies urine infections, and denies bloody urine. Skin: The patient denies a history of skin cancer, notes bleeding/changing moles, and denies a history of skin rash. Neurologic: The patient denies a history of epilepsy/convulsions, denies headaches, denies head/spinal injuries, and denies stroke/TIA. Psychiatric: The patient denies psychiatric medications, denies depression, and denies voices, denies substance abuse. Endocrine: The patient notes thyroid disorders, notes diabetes, and denies hormonal problems. Hematologic: The patient notes a history of bruising, denies bleeding, and denies anemia, denies blood clots. Infections: The patient notes a history of measles and mumps, denies rheumatic fever, and denies sexually transmitted diseases. Musculoskeletal: The patient notes back pain/injury, notes back problems, notes sciatica, denies knee/foot trouble, notes arthritis, or denies gout. When was patient's last Mammogram screening? 2021 Last Colonoscopy: 2019 Raquel Franco LPN documented in this encounterK[facility]23 History of Present illness Narrative* Sandy Brasewll MD - 09/02/2022 12:16 PM EDT She does not need any labs done by us including a1c. See viktoriya in [place] who just saw her in last few months * Sherri Júnior - 09/02/2022 9:57 AM EDT POPULATION HEALTH NAVIGATION OUTREACH Action/FYI PCP response She does not need any labs done by us including a1c. See viktoriya in [place] who just saw her in last few months Removed orders Patient Identified by Name and : NO O Did you use a PCP flex slot to schedule this appointment? N/A Reason for Outreach Care Gap or Scheduling/Wellness visits Payer: Payor: [employer] MEDICARE / Plan: HU[employer] GOLD PLUS / Product Type: HMO / POPULATION HEALTH NAVIGATION OUTREACH Action/FYI Spoke with patient will pend order for A1C States had colonoscopy a couple yeas ago in [place] Wants to discuss mammogram with PCP at [place] visit Patient Identified by Name and : YES, via phone Outreach Outcome/Action Spoke to patient / parent / legal guardian: No action required (information or reminder only) Did you use a PCP flex slot to schedule this appointment? N/A Reason for Outreach Care Gap or Scheduling/Wellness visits Payer: Payor: [employer] MEDICARE / Plan: HUMANA GOLD PLUS / Product Type: HMO / Care Gap Reviewed:: Breast Cancer screening Colorectal Cancer Screening HBA1C Reminder: Reminder note to check Health Maintenance for items below Health Maintenance items due: SPIROMETRY Never done HEPATITIS C SCREENING Never done ALPHA-1 ANTITRYPSIN DEFICIENCY SCREENING Never done DIABETIC FOOT EXAM due on 07/03/2015 COLORECTAL CANCER SCREENING due on 09/22/2017 HBA1C due on 05/15/2022 ADVANCE DIRECTIVE DISCUSSION Never done MAMMOGRAM due on 11/15/2022 Navigation Signature: Sherri Callejas September 02, 2022 9:57 AM documented in this encounterK[facility]03[facility]-2023 Miscellaneous Notes* Telephone Encounter - Марина Gibson - 08/12/2022 11:02 AM EDT Spoke to pt and scheduled. * Telephone Encounter - Yuli Bennett MA - 08/11/2022 3:34 PM EDT Pt notified and verbalized understanding. Pt would prefer to see Dr. Solis. Please contact patient to schedule consult for epigastric hernia. Yuli Bennett MA * Telephone Encounter - Sunday Peng LPN - 08/05/2022 9:05 AM EST Left message to return call to office. Sunday Peng LPN * Telephone Encounter - Flaca Fischer APRN.CNP - 08/04/2022 5:31 PM EST Can please let patient know that I received her ultrasound results. It does show a ventral hernia in the abdomen. Will go ahead and place referral to general surgery. Please help schedule. Flaca Fischer APRN.CNP documented in this encounterK[facility]11-29-2022 History of Present illness Narrative* Evelin Bright, DO - 04/29/2022 9:30 AM EST Images from the original note were not included. [facility] [place] DEPARTMENT OF VASCULAR SURGERY OUTPATIENT VISIT DATE April 29, 2022 OUTPATIENT VISIT TYPE CONSULTATION SERVICE DATE: 04/29/2022 SERVICE TIME: 9:32 AM PRIMARY CARE PHYSICIAN: Sandy Braswell MD REFERRING PROVIDER: Albert Good DPM [address] [facility] [id number] Consult requested for an opinion regarding the evaluation and treatment of the above. My final impression and recommendations will be communicated back to the requesting physician by way of the shared medical record or letter via US mail. CHIEF COMPLAINT: Patient presents with: New Patient History of Present Illness: Patient is a 71 year old White female presenting for consultation, evaluation and possible treatment of bilateral lower extremity short distance claudication. She describes less than 100 feet claudication. She recently moved back from [place]. She is currently living in the basement and is able to go up the stairs once a day with breaks due to bilateral leg pain. Denies ulceration. States her family has similar issues with circulation. She also has spinal stenosis and was being managed byspine/pain management in the past. She does smoke however has significantly decreased in amount since returning to [place]. States her blood sugars are in better control with her dexcom. States her leg s ymptoms are impacting her day to day activities. PAIN ASSESSMENT: PAIN EVALUATION No data found in the last 1 encounters. Obstetric History No data available Duration of Symptoms: Progressive PREVIOUS TESTS: None CARDIOVASCULAR RISK FACTORS: Actively Smoking, Diabetes, and Hypertension PAST MEDICAL HISTORY Diagnosis Date Atherosclerosis Cataract both eyes Degenerative disc disease Depression Diabetes mellitus (HCC) Essential hypertension, benign Hemorrhage of gastrointestinal tract, unspecified Neuropathy Other acute and subacute form of ischemic heart disease 06/01/1995 Other and unspecified hyperlipidemia Other specified disorders of pancreatic internal secretion PDR (proliferative diabetic retinopathy) (HCC) Pseudophakia of left eye Sleep apnea Unspecified hypothyroidism PAST SURGICAL HISTORY Procedure Laterality Date BALLN ANGIOPLASTY OPEN,FEM-POP COLONOSCOPY FLX DX W/COLLJ SPEC WHEN PFRMD 09/23/2007 Colonoscopy ESOPHAGOGASTRODUODENOSCOPY TRANSORAL DIAGNOSTIC 09/23/2007 EGD PAST SURGICAL HISTORY OF 2004-? Laser Treatments Both Eyes (Ongoing) PERC TRANSL COR ANGIO Percutaneous Transluminal Coronary Angio Status REMV CATARACT EXTRACAP,INSERT LENS Bilateral RMVL LENS MATERIAL PHACOFRAGMENTATION ASPIR os 01/09/2011 Cataract Extraction STENT PLACEMENT 06/01/1995 with HI VITRECTOMY MECHANICAL PARS PLANA os 01/09/2011 [place] Vitrectomy WRIST SPLINT carpal tunnel on R SOCIAL HISTORY: Social History Tobacco Use Smoking status: Every Day Packs/day: 1.00 Years: 20.00 Pack years: 20.00 Types: Cigarettes Smokeless tobacco: Never Tobacco comments: Down to about 1/2 a pack a day Vaping Use Vaping Use: Never used Substance Use Topics Alcohol use: No Drug use: No FAMILY HISTORY Problem Relation Age of Onset Lipids Mother Allergies Mother Arthritis Mother Breast Cancer Mother Cancer Mother stomach COPD Mother Hypertension Mother Thyroid Mother Psychiatry Mother depression Cataract Mother Diabetes Father Prostate Lipids Father Allergies Father Cancer Father stomach Prostate Cancer Father Hypertension Father Stroke Father Thyroid Sister Allergies Sister Cervical Cancer Sister Hypertension Brother Allergies Brother Diabetes Maternal Uncle MEDICATIONS: citalopram (CELEXA) 40 mg tablet Take 1 tablet by mouth once daily. PEG 400-propylene glycol (SYSTANE ULTRA) 0.4-0.3 % ophthalmic solution Use 1 Drop in both eyes every 2 hours while awake. rosuvastatin (CRESTOR) 40 mg tablet Take 40 mg by mouth once daily. pantoprazole DR (PROTONIX) 40 mg tablet Take 40 mg by mouth once daily. buPROPion SR (ZYBAN SR; WELLBUTRIN SR) 150 mg 12 hr tablet Take 150 mg by mouth every 12 hours. levothyroxine (SYNTHROID) 100 mcg tablet Take 100 mcg by mouth once daily. VENTOLIN HFA 90 mcg/actuation inhaler LYUMJEV U-100 INSULIN 100 unit/mL solution Inject 12-15 Units subcutaneously w MEALS. insulin glargine (LANTUS) 100 unit/mL injection Inject 80 units subcutaneously in the MORNING and 40 units subcutaneously at BEDTIME. (Patient taking differently: Inject 80 units subcutaneously in the MORNING and 40 units subcutaneously at BEDTIME. Takes 48 units every morning) clopidogrel (PLAVIX) 75 mg tablet Take 1 tablet by mouth once daily. metoprolol succinate ER (TOPROL XL) 100 mg Tb24 Take 1 tablet by mouth once daily. isosorbide dinitrate (ISORDIL, SORBITRATE) 20 mg tablet Take 1 tablet by mouth twice daily. lisinopril-hydrochlorothiazide (PRINZIDE,ZESTORETIC) 20-12.5 mg per tablet Take 1 tablet by mouth once daily. gabapentin (NEURONTIN) 800 mg tablet Take 1 tablet by mouth twice daily. Insulin Syringe-Needle U-100 (ULTRA FINE INSULIN) 1 mL 30 x 1/2" syrg use 5 times a day as directed. HYDROcodone-acetaminophen (NORCO) 5-325 mg per tablet Take 1 tablet by mouth every 6 hours as needed. zolpidem (AMBIEN) 10 mg tab Take 1 tablet by mouth at bedtime as needed. for insomnia. nitroglycerin sublingual (NITROQUICK) 0.4 mg SL tablet Dissolve 1 tablet under the tongue as needed. DISSOLVE ON TONGUE FOR CHEST PAIN. IF NO PAIN RELIEF, CALL 911 blood sugar diagnostic (TRUETEST TEST STRIPS) test strip Test blood sugar 4 times daily. dx 250.00,insulin usage-yes (Patient taking differently: Test blood sugar 4 times daily. dx 250.00, insulin usage-yes Takes blood sugars around three times daily) POLYVINYL ALCOHOL (20/20 ARTIFICIAL TEARS OPHTHALMIC) Use in eyes as needed. blood sugar diagnostic test strip Test blood sugars five times daily calcium carbonate/vitamin d3(CALCIUM 600 + D 600 MG-400 UNIT TAB) Take by mouth. HYDROcodone-Acetaminophen (NORCO) 7.5-325 mg per tablet Take 1 tablet by mouth every 6 hours as needed for pain for up to 30 days. hydrOXYzine pamoate (VISTARIL) 25 mg capsule Take 1 capsule by mouth three times daily as needed. ALLERGIES: ALLERGIES Allergen Reactions Enviromental [Other] Itching REVIEW of SYSTEMS: Constitutional: No weight loss, malaise or fevers. HEENT: Negative for frequent or significant headaches, No changes in hearing or vision, no nose bleeds or other nasal problems Respiratory: Negative for cough and wheezing and Positive for shortness of breath on exertion Cardiovascular: Negative for chest pain, leg swelling or palpitations Gatrointestinal: Negative for blood in stools or black stools and Positive for abdominal discomfortand has hernia Genitourinary: No history of dysuria, frequency, or incontinence and No difficulty urination, some times nocturia >1 times per night or hematuria Musculoskeletal: Negative for muscle pain and Positive for back pain and joint pain Endocrine: Positive for cold intolerance and heat intolerance Hematology/Lymphatic: Negative for prolonged bleeding and Positive for bruises easily Neurologic: No history or headaches, syncope, paralysis, seizures or tremors Integumentary: Negative for lesions and rash and Positive for itching PHYSICAL EXAM: VITALS: There were no vitals taken for this visit. General: Alert, oriented, cooperative, healthy appearance Integumentary: Normal color, no rash, no lesions. HEENT: EOM, teeth in good repair. Pupils equal, round and reactive. Cardiovascular: Pulse regular. Lungs: No chest deformities or chest wall tenderness. Abdomen: Soft, non-tender, no rigidity. Extremities: No deformity, no edema or tenderness, no joint swelling or clubbing. Neurological: AAOx3. Normal cognition and motor skills. Vascular: Femoral Pulse Right: Weak - Left: Weak Non palpable popliteal or distal pulses, doppler dp/pt Diagnostic tests reviewed for today's visit: Most recent labs Most recent imaging PVRs\\ RIGHT SIDE Resting right ankle brachial index: 0.72 Right toe brachial index: 0.49 Abnormal ankle brachial index at rest diagnostic of peripheral artery disease. Abnormal toe brachial index at rest is evidence of peripheral artery disease. Right ankle: Mild disease at rest. LEFT SIDE Resting left ankle brachial index: 0.60 Left toe brachial index: 0.48 Abnormal ankle brachial index at rest diagnostic of peripheral artery disease. Abnormal toe brachial index at rest is evidence of peripheral artery disease. Left ankle: Moderate disease at rest. IMPRESSION: Ms. Pires is a 71 year old female with short distance lifestyle limiting claudication . PLAN and RECOMMENDATIONS: Discussed arterial disease with patient Stressed the importance of smoking cessation and encourage to continue to cut back Continue antiplatelet therapy Recommend CTA with run-off as she has diminished femoral pulses to assess for in-flow disease contributing to her symptoms. SIGNATURE: Evelin Bright DO PATIENT NAME: Zoraida Pires DATE: April 29, 2022 TIME: 9:32 AM documented in this encounterK[facility]11-23-2022 Miscellaneous Notes* Telephone Encounter - Ramona Burger LPN - 04/23/2022 1:14 PM EST Pt notified of results & instructions from pcp. Pt states she currently does not have any pain but will report to office if pain develops. Ramona Burger LPN * Telephone Encounter - Alisson Marshall Ma - 04/23/2022 9:50 AM EST Message left for pt to call back for results. Alisson Marshall MA * Telephone Encounter - Treva De Anda RN - 04/21/2022 9:26 AM EST Called and left a voicemail for the Patient to call back and ask for a nurse to receive the providers message. Treva De Anda RN * Telephone Encounter - Sandy Braswell MD - 04/21/2022 8:40 AM EST No gallpladder polyp or mass. Is definitely a galllstone. We take the gallbladder out if has symptoms. If no symptoms, simply watch fat in the diet. Let me know if any ruq pain after eating etc. documented in this encounterK[facility]11-18-2022 History of Present illness Narrative* Kim Mayberry RDMS - 04/18/2022 9:45 AM EST Radiology Service Progress Note PATIENT NAME: Zoraida Pires DATE OF SERVICE: April 18, 2022 TIME: 11:41 AM PATIENT IDENTITY VERIFICATION COMPLETED USING TWO (2) IDENTIFIERS: Name and Date of confirmedby patient verbally. FALL SCREENING: Has the patient had 2 falls in the last year or 1 fall with injury or currently using an Ambulatory Assistive Device (Walker, Cane, Wheelchair, Crutches, etc.)? No PATIENT GENDER DATA: Female. status: : No status: NO. PATIENT RELEVANT IMPLANT DATA REVIEWED: Not Applicable RADIOLOGY DEPARTMENT: Ultrasound PERIPHERAL IV DATA: Not applicable SIGNED BY: Kim Mayberry RDMS April 18, 2022 11:41 AM documented in this encounterK[facility]22 History of Present illness Narrative* Hannah Rivera, OD - 03/31/2022 11:20 AM EDT 1. 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 S/p Panretinal laser photocoagulation Both Eyes H/o vitreous heme right eye-resolved No DME on OCT-mac Recommended establishing care with Dr. Montalvo in [place] 2. Punctate keratitis, bilateral Much improved Continue artificial tears 2-4 times daily and gel nightly 3. PCO (posterior capsular opacification), right Continue to observe 4. Pseudophakia Observe Follow-up in 6 months Hannah Rivera, OD March 31, 2022 11:20 AM documented in this encounterK[facility]10-31-2022 History of Present illness Narrative* Harish He MD - 03/31/2022 9:37 AM EDT Harish He MD Department of Orthopaedics Orthopaedics [address] [facility] [address] Dept: [phone] Dept March 31, [address] Irma MD for an opinion regarding right shoulder. My final recommendations will be communicated back to the requesting physician by way of shared Medical record or letter to requesting physician via US mail. CHIEF COMPLAINT: New and Tumor/Mass of the Right Shoulder (Xray 01/27/22) HPI Patient is here today for mass on her right shoulder that she noticed about a year ago. Patientstates it continues to get larger and is causing her more discomfort. Patient states she has a dullaching pain that gets worse throughout the day and is even worse at night. Patient has norco that she has been taking at night for discomfort. Patient states she recently noticed same mass starting on her left shoulder as well. ASSESSMENT: R22.9 Lump of skin M75.51 Acute shoulder bursitis, right M25.811 Mass of joint of right shoulder PLAN: Soft tissue mass near the AC joint and distal acromion.Likely AC joint cyst. This potentiallycould be aspirated or injected with steroid. Excision with a distal clavicle excision is also an option. FOLLOW UP INSTRUCTIONS: As needed Ms. Zoraida Pires was advised as to contrast therapies and/or to take analgesics/anti-inflammatories as needed and all contraindications were reviewed. OBJECTIVE: Ms. Zoraida Pires is a pleasant 71 year old in no apparent distress. Gen:There were no vitals taken for this visit. nl development, non obese, no deformities ENT: Normocephalic, normal hearing, moist mucosa CV: Pulses:Radial= 2+ and symmetric, capillary refill < 2 secs, no peripheral edema/varicosities Skin: no rash, bruising or lesions. Good turgor. Psych: cooperative and appropriate, alert and oriented x 3, good mood and affect. Musculoskeletal: Focal soft tissue swelling over the lateral acromion. Mild limitations with range of motion of the right shoulder. No crepitance. Mild impingement signs. 4+ out of 5 rotator cuff testing. IMAGING: IMPRESSION: Nonspecific soft tissue prominence cephalad to the acromioclavicular joint at the site of palpable abnormality. Mild glenohumeral and moderate acromioclavicular osteoarthritis. 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: SHARONA Transcribe Date/Time: Jan 27 2022 3:31P Dictated by : DINAH MCDERMOTT DO This examination was interpreted and the report reviewed and electronically signed by: DINAH MCDERMOTT DO on Jan 27 2022 3:36PM EST Results-Findings * * *Final Report* * * DATE OF EXAM: Jan 27 2022 3:12PM WOX [id number] - XR SHLDR >/=3V AP/CINTHIA AP/OTHR RT / PROCEDURE REASON: multiple diagnoses * * * * Physician Interpretation * * * * EXAMINATION: XR SHLDR >/=3V AP/CINTHIA AP/OTHR RT PATIENT/TECHNOLOGIST PROVIDED HISTORY: has a lump on top of right shoulder marked by arrow for a couple of months, sometimes is painful no inj CLINICAL INFORMATION: 71 years old Female with Chronic right shoulder pain TECHNIQUE: XR SHLDR >/=3V AP/CINTHIA AP/OTHR RT Laterality: RIGHT Number of different views (projections): 3 COMPARISON: None RESULT: Arrow utilized to indicate the patient's reported site of palpable abnormality. Nonspecific soft tissue prominence cephalad to the acromioclavicular joint at the site of palpable abnormality. No fracture. Mild degenerative change glenohumeral joint and moderate degenerative change acromioclavicular joint. Acromiohumeral interval is maintained. Degenerative changes in the visualized cervicothoracic spine. Supporting Subjective Information Below: Past Medical History: PAST MEDICAL HISTORY Diagnosis Date Atherosclerosis Cataract both eyes Degenerative disc disease Depression Diabetes mellitus (HCC) Essential hypertension, benign Hemorrhage of gastrointestinal tract, unspecified Neuropathy Other acute and subacute form of ischemic heart disease 06/01/1995 Other and unspecified hyperlipidemia Other specified disorders of pancreatic internal secretion PDR (proliferative diabetic retinopathy) ([facility]) Pseudophakia of left eye Sleep apnea Unspecified hypothyroidism Past Surgical History: PAST SURGICAL HISTORY Procedure Laterality Date BALLN ANGIOPLASTY OPEN,FEM-POP COLONOSCOPY FLX DX W/COLLJ SPEC WHEN PFRMD 09/23/2007 Colonoscopy ESOPHAGOGASTRODUODENOSCOPY TRANSORAL DIAGNOSTIC 09/23/2007 EGD PAST SURGICAL HISTORY OF 2005-? Laser Treatments Both Eyes (Ongoing) PERC TRANSL COR ANGIO Percutaneous Transluminal Coronary Angio Status REMV CATARACT EXTRACAP,INSERT LENS Bilateral RMVL LENS MATERIAL PHACOFRAGMENTATION ASPIR os 01/09/2011 Cataract Extraction STENT PLACEMENT 06/01/1995 with HI VITRECTOMY MECHANICAL PARS PLANA os 01/09/2011 [place] Vitrectomy WRIST SPLINT carpal tunnel on R Family History: FAMILY HISTORY Problem Relation Age of Onset Lipids Mother Allergies Mother Arthritis Mother Breast Cancer Mother Cancer Mother stomach COPD Mother Hypertension Mother Thyroid Mother Psychiatry Mother depression Cataract Mother Diabetes Father Prostate Lipids Father Allergies Father Cancer Father stomach Prostate Cancer Father Hypertension Father Stroke Father Thyroid Sister Allergies Sister Cervical Cancer Sister Hypertension Brother Allergies Brother Diabetes Maternal Uncle Social History: Social History Tobacco Use Smoking status: Every Day Packs/day: 1.00 Years: 20.00 Pack years: 20.00 Types: Cigarettes Smokeless tobacco: Never Vaping Use Vaping Use: Never used Substance Use Topics Alcohol use: No Drug use: No Medications: Current Outpatient Medications Medication Sig citalopram (CELEXA) 40 mg tablet Take 1 tablet by mouth once daily. hydrOXYzine pamoate (VISTARIL) 25 mg capsule Take 1 capsule by mouth three times daily as needed. PEG 400-propylene glycol (SYSTANE ULTRA) 0.4-0.3 % ophthalmic solution Use 1 Drop in both eyes every 2 hours while awake. rosuvastatin (CRESTOR) 40 mg tablet Take 40 mg by mouth once daily. pantoprazole DR (PROTONIX) 40 mg tablet Take 40 mg by mouth once daily. buPROPion SR (ZYBAN SR; WELLBUTRIN SR) 150 mg 12 hr tablet Take 150 mg by mouth every 12 hours. levothyroxine (SYNTHROID) 100 mcg tablet Take 100 mcg by mouth once daily. VENTOLIN HFA 90 mcg/actuation inhaler LYUMJEV U-100 INSULIN 100 unit/mL solution Inject 12-15 Units subcutaneously w MEALS. insulin glargine (LANTUS) 100 unit/mL injection Inject 80 units subcutaneously in the MORNING and 40 units subcutaneously at BEDTIME. (Patient taking differently: Inject 80 units subcutaneously in the MORNING and 40 units subcutaneously at BEDTIME. Takes 48 units every morning) clopidogrel (PLAVIX) 75 mg tablet Take 1 tablet by mouth once daily. metoprolol succinate ER (TOPROL XL) 100 mg Tb24 Take 1 tablet by mouth once daily. isosorbide dinitrate (ISORDIL, SORBITRATE) 20 mg tablet Take 1 tablet by mouth twice daily. lisinopril-hydrochlorothiazide (PRINZIDE,ZESTORETIC) 20-12.5 mg per tablet Take 1 tablet by mouth once daily. gabapentin (NEURONTIN) 800 mg tablet Take 1 tablet by mouth twice daily. HYDROcodone-acetaminophen (NORCO) 5-325 mg per tablet Take 1 tablet by mouth every 6 hours as needed. zolpidem (AMBIEN) 10 mg tab Take 1 tablet by mouth at bedtime as needed. for insomnia. nitroglycerin sublingual (NITROQUICK) 0.4 mg SL tablet Dissolve 1 tablet under the tongue as needed. DISSOLVE ON TONGUE FOR CHEST PAIN. IF NO PAIN RELIEF, CALL 911 POLYVINYL ALCOHOL (20/20 ARTIFICIAL TEARS OPHTHALMIC) Use in eyes as needed. HYDROcodone-Acetaminophen (NORCO) 7.5-325 mg per tablet Take 1 tablet by mouth every 6 hours as needed for pain for up to 30 days. Insulin Syringe-Needle U-100 (ULTRA FINE INSULIN) 1 mL 30 x 1/2" syrg use 5 times a day as directed. blood sugar diagnostic (TRUETEST TEST STRIPS) test strip Test blood sugar 4 times daily. dx 250.00,insulin usage-yes (Patient taking differently: Test blood sugar 4 times daily. dx 250.00, insulin usage-yes Takes blood sugars around three times daily) blood sugar diagnostic test strip Test blood sugars five times daily calcium carbonate/vitamin d3(CALCIUM 600 + D 600 MG-400 UNIT TAB) Take one(1) tablet daily. (Patient not taking: No sig reported) No current facility-administered medications for this visit. Allergies: Enviromental [Other] ROS: General (negative for fatigue, malaise, weight loss/gain) HEENT (negative for headache, earache, recent vision changes, sinus pain, sore throat) Respiratory (no recent shortness of breath, hemoptysis) CV (negative for chest tightness, palpitations) Musculoskeletal (see HPI) Psych (no depression, anxiety) REFERRING PHYSICIAN: Ms. Zoarida Pires was referred to tx for consultation by the following physician. This consultation note will be sent to the following physician by either mail or electronic medical record. Adriel Solis [address] [facility] [address] Sandy Braswell MD [address] [facility] [id number] Harish He MD documented in this encounterK[facility]10-25-2022 Miscellaneous Notes* Telephone Encounter - Tasneem Joseph LPN - 03/25/2022 10:55 AM EDT Images from the original note were not included. APPROVED. Jenny Joseph LPN * Telephone Encounter - Tasneem Joseph LPN - 03/20/2022 11:14 AM EDT Prior Authorization has been completed online at [employer] for [place], will await response. BAINS- [id number] Please keep encounter open until final decision has been received and documented from insurance company. Jenny Joseph LPN * Telephone Encounter - Anastasia Vaughan RN - 03/18/2022 4:21 PM EDT PRIOR AUTHORIZATION Medication for Prior Authorization: [place] 7.5- 325 Insurance Company: Medicare Patient insurance ID number: [id number] Anastasia Vaughan RN documented in this encounterK[facility]10-21-2022 Miscellaneous Notes* Telephone Encounter - Nina Simons LPN - 03/21/2022 4:01 PM EDT Scheduled. * Telephone Encounter - Irasema Fallon Pss - 03/20/2022 5:28 PM EDT L/m for patient to call and schedule. Irasema Fallon Pss * Telephone Encounter - Sandy Braswell MD - 03/20/2022 4:42 PM EDT Looks like this was still not set up with scheduling. Can we check why not * Telephone Encounter - Sandy Braswell MD - 02/18/2022 5:17 PM EDT Was this scheduled? * Telephone Encounter - Radha Butler Ma - 01/31/2022 3:22 PM EDT Patient was made aware of the results. Patient verbalizes understanding. Transferred to receiver/laborer Radha Butler Ma * Telephone Encounter - Sandy Braswell MD - 01/31/2022 1:44 PM EDT Ultrasound is overall ok. Has a benign appearing cyst. Does show what they think might be a polyp in her gallbladder but pictures are limited. They recommend we do an us of her gallbladder for better pictures. documented in this encounterK[facility]10-21-2022 Miscellaneous Notes* Telephone Encounter - Nina Simons LPN - 03/21/2022 3:56 PM EDT Patient notified and advised that at next visit can discuss hernia and next steps to evaluate. * Telephone Encounter - Sandy Braswell MD - 03/21/2022 3:41 PM EDT That is not really something an us evaluates. * Telephone Encounter - Debi Grimaldo LPN - 03/21/2022 3:37 PM EDT Patient calling said she has her RUQ ultrasound scheduled for 04/04/2022. Patient asking if could have order to have hernia checked with ultrasound at the same time? Patient said hernia is under her breasts, wants to know how things are doing with that also. Please advise documented in this encounterKettering [facility]10-17-2022 History of Present illness Narrative* Lelia Arvind - 03/17/2022 1:37 PM EDT POPULATION HEALTH NAVIGATION OUTREACH Action/FYI DDD (degenerative disc disease), lumbar [M51.36] Pt identified by name and : NO Outreach Outcome/Action Unable to reach patient: Left message Did you use a PCP flex slot to schedule this appointment? No Reason for Outreach Care Gap or Scheduling/Wellness visits Payer: Payor: MEDICARE / Plan: MEDICARE A AND B / Product Type: Medicare / Care Gap Reviewed:: Specialty Scheduling Reminder: Reminder note to check Health Maintenance for items below Health Maintenance items due: SPIROMETRY Never done HEPATITIS C SCREENING Never done ALPHA-1 ANTITRYPSIN DEFICIENCY SCREENING Never done HEMOGLOBIN/HEMATOCRIT due on 05/31/2014 DIABETIC FOOT EXAM due on 07/03/2015 COLORECTAL CANCER SCREENING due on 09/22/2017 ADVANCE DIRECTIVE DISCUSSION Never done Message Sent to Practice: No Navigation Signature: Lelia Samuels March 17, 2022 1:37 PM documented in this encounterK[facility]10-07-2022 History of Present illness Narrative* Sandy Braswell MD - 03/07/2022 11:24 AM EDT Patient presents with: Follow Up HPI: Patient presents today for office visit for follow up. Scheduled with Cardio for June 2022. Scheduled this month with Ophthalmology. Seeing Ortho 03/31. Scheduled with Angel Palumbo this month. Has not gotten into pain mgt. Requesting refill of [place] 7.5. We will continue to prescribe them. Pain management is to see her to help with overall pain control. Has had injections and ablations. No hx of misuse or abues. Waiting to hear from Dr. Hollis for earlier appt. Moods have been good. We think she is only taking celexa one a day. I would not want her taking more than that. Oarrs done. No hx of misuse or abuse of meds. Does not use the narcotics routinely. Discussed that given current guidelins she should not be using benzos at the same time as her opiates due to dangerous interactions. Will consider controlled substance agreement if usage increases See previous ov: Patient presents with: New Patient: Previous Pt of Dr. Braswell. Here to re-establish care HPI: Patient presents today for office visit for follow up. Last seen in 2014. Was in [place], [place]. Must moved back to [place] the beginning of the month. Just had labs in November. Fairly complicated history. DM:was seeing endocrinology. Last a1c was better than it used to be HYPERTENSION:denies current chest pain No worsening shortness of breath. No worsening edema. HLD:no myalgias. PSYCH:adjusting to meds. Feels she is overall doing well Hypothyroidism. Most recent tsh was stable. Was seeing cardiology and endocrinology. Seeing Dr. Palumbo in March. Last hba1c was 7.9. used to be on above 9.0. has an insulin pump remotely. Was checking her sugars 4 to 5 times a day. Now uses a cgm. Needs paperwork done. Average sugar Will be seeing podiatry soon. Needs to see optho Was seeing pain management and they had discussed a pain pump. Has a small ventral hernia. Got ct scan of her lungs in October. Gets annual screening. Has a knot on her right collar bone. Has been there for two or three months. No trauma. Hurts periodically. Her renal function was stable. But she had some microalbuminuria. They had discussed having her seenephrology for that. Offered to recheck labs to be sure since her labs were otherwise ok. Has known renal cysts. Needs optho for her dm. Just had mammogram and bone density this past summer. Not using cpap. Component Latest Ref Rng & Units 01/27/2022 01/31/2022 02/04/2022 Color Yellow Liv (A) Yellow Clarity Clear Slightly Cloudy (A) Clear Glucose, Urine Negative Negative Negative Bilirubin, Urine Negative Negative Negative Ketones, Urine Negative Trace (A) Negative Specific [place], Ur 1.005 - 1.030 1.021 1.018 Hemoglobin/Blood,Ur Negative Negative Negative pH, Urine 5.0 - 8.0 5.0 5.0 Protein, Urine Negative 2+ (A) 1+ (A) Urobilinogen Negative Negative Negative Nitrites Negative Negative Negative Leukest Negative Trace (A) Negative WBC, Urine 0-5 /HPF 6-10 /HPF (A) 0-5 /HPF RBC, Urine 0-3 /HPF 3-5 /HPF (A) 0-3 /HPF Epithelial Cells /HPF Few Few Hyaline Cast 0 /LPF >10 /LPF (A) Glucose 74 - 99 mg/dL 196 (H) BUN 7 - 21 mg/dL 18 Creatinine 0.58 - 0.96 mg/dL 1.03 (H) Sodium 136 - 144 mmol/L 139 Potassium 3.7 - 5.1 mmol/L 4.2 Chloride 97 - 105 mmol/L 104 CO2 22 - 30 mmol/L 26 Anion Gap 9 - 18 mmol/L 9 Calcium 8.5 - 10.2 mg/dL 9.5 eGFR >=60 mL/min/1.73m 59 (L) Albumin, Urine mg/L 284.6 Albumin Urine Rate <20.0 ug/min 158.1 (H) Albumin, 24 Hr Urine <30.0 mg/24 hrs 227.7 (H) Period hours 24 Urine Volume 24 hour mL 800 Creatinine, Ur Random (UCRR) 20.0 - 300.0 mg/dL 180.7 Albumin, Urine Random mg/L 177.8 Albumin/Creat Ratio <30 mg/g 98 (H) Culture No growth (<1,000 CFU/ml) MEDICATIONS: Current Outpatient Medications Medication Sig PEG 400-propylene glycol (SYSTANE ULTRA) 0.4-0.3 % ophthalmic solution Use 1 Drop in both eyes every 2 hours while awake. rosuvastatin (CRESTOR) 40 mg tablet Take 40 mg by mouth once daily. pantoprazole DR (PROTONIX) 40 mg tablet Take 40 mg by mouth once daily. buPROPion SR (ZYBAN SR; WELLBUTRIN SR) 150 mg 12 hr tablet Take 150 mg by mouth every 12 hours. levothyroxine (SYNTHROID) 100 mcg tablet Take 100 mcg by mouth once daily. VENTOLIN HFA 90 mcg/actuation inhaler LYUMJEV U-100 INSULIN 100 unit/mL solution Inject 12-15 Units subcutaneously w MEALS. citalopram (CELEXA) 40 mg tablet Take 1.5 tablets by mouth once daily. insulin glargine (LANTUS) 100 unit/mL injection Inject 80 units subcutaneously in the MORNING and 40 units subcutaneously at BEDTIME. (Patient taking differently: Inject 80 units subcutaneously in the MORNING and 40 units subcutaneously at BEDTIME. Takes 48 units every morning) clopidogrel (PLAVIX) 75 mg tablet Take 1 tablet by mouth once daily. metoprolol succinate ER (TOPROL XL) 100 mg Tb24 Take 1 tablet by mouth once daily. isosorbide dinitrate (ISORDIL, SORBITRATE) 20 mg tablet Take 1 tablet by mouth twice daily. lisinopril-hydrochlorothiazide (PRINZIDE,ZESTORETIC) 20-12.5 mg per tablet Take 1 tablet by mouth once daily. gabapentin (NEURONTIN) 800 mg tablet Take 1 tablet by mouth twice daily. Insulin Syringe-Needle U-100 (ULTRA FINE INSULIN) 1 mL 30 x 1/2" syrg use 5 times a day as directed. diazepam (VALIUM) 5 mg tablet Take 1 tablet by mouth twice daily as needed. HYDROcodone-acetaminophen (NORCO) 5-325 mg per tablet Take 1 tablet by mouth every 6 hours as needed. zolpidem (AMBIEN) 10 mg tab Take 1 tablet by mouth at bedtime as needed. for insomnia. nitroglycerin sublingual (NITROQUICK) 0.4 mg SL tablet Dissolve 1 tablet under the tongue as needed. DISSOLVE ON TONGUE FOR CHEST PAIN. IF NO PAIN RELIEF, CALL 911 blood sugar diagnostic (TRUETEST TEST STRIPS) test strip Test blood sugar 4 times daily. dx 250.00,insulin usage-yes (Patient taking differently: Test blood sugar 4 times daily. dx 250.00, insulin usage-yes Takes blood sugars around three times daily) POLYVINYL ALCOHOL (20/20 ARTIFICIAL TEARS OPHTHALMIC) Use in eyes as needed. blood sugar diagnostic test strip Test blood sugars five times daily HYDROcodone-Acetaminophen (NORCO) 7.5-325 mg per tablet Take 1 tablet by mouth every 6 hours as needed for pain for up to 30 days. calcium carbonate/vitamin d3(CALCIUM 600 + D 600 MG-400 UNIT TAB) Take one(1) tablet daily. (Patient not taking: No sig reported) No current facility-administered medications for this visit. ALLERGIES: ALLERGIES Allergen Reactions Enviromental [Other] Itching PAST MEDICAL HISTORY Diagnosis Date Atherosclerosis Cataract both eyes Degenerative disc disease Depression Diabetes mellitus (HCC) Essential hypertension, benign Hemorrhage of gastrointestinal tract, unspecified Neuropathy Other acute and subacute form of ischemic heart disease 06/01/1995 Other and unspecified hyperlipidemia Other specified disorders of pancreatic internal secretion PDR (proliferative diabetic retinopathy) (HCC) Pseudophakia of left eye Sleep apnea Unspecified hypothyroidism PAST SURGICAL HISTORY Procedure Laterality Date BALLN ANGIOPLASTY OPEN,FEM-POP COLONOSCOPY FLX DX W/COLLJ SPEC WHEN PFRMD 09/23/2007 Colonoscopy ESOPHAGOGASTRODUODENOSCOPY TRANSORAL DIAGNOSTIC 09/23/2007 EGD PAST SURGICAL HISTORY OF 2004-? Laser Treatments Both Eyes (Ongoing) PERC TRANSL COR ANGIO Percutaneous Transluminal Coronary Angio Status REMV CATARACT EXTRACAP,INSERT LENS Bilateral RMVL LENS MATERIAL PHACOFRAGMENTATION ASPIR os 01/09/2011 Cataract Extraction STENT PLACEMENT 06/01/1995 with HI VITRECTOMY MECHANICAL PARS PLANA os 01/09/2011 [place] Vitrectomy WRIST SPLINT carpal tunnel on R FAMILY HISTORY Problem Relation Age of Onset Lipids Mother Allergies Mother Arthritis Mother Breast Cancer Mother Cancer Mother stomach COPD Mother Hypertension Mother Thyroid Mother Psychiatry Mother depression Cataract Mother Diabetes Father Prostate Lipids Father Allergies Father Cancer Father stomach Prostate Cancer Father Hypertension Father Stroke Father Thyroid Sister Allergies Sister Cervical Cancer Sister Hypertension Brother Allergies Brother Diabetes Maternal Uncle Social History Tobacco Use Smoking status: Every Day Packs/day: 1.00 Years: 20.00 Pack years: 20.00 Types: Cigarettes Smokeless tobacco: Never Vaping Use Vaping Use: Never used Substance Use Topics Alcohol use: No Drug use: No Reviewed current medications, allergies, past medical history, surgical history, family history andsocial history today. REVIEW OF SYSTEMS All other reviewed and negative other than HPI. BP 124/60 Pulse 63 Ht 152.4 cm (5') Wt 61.3 kg (135 lb 3.2 oz) SpO2 98% BMI 26.40 kg/m Last 4 Encounter Wt Readings: Date: Wt: 02/27/2022 61.2 kg (135 lb) 01/27/2022 62.1 kg (137 lb) 07/03/2014 73.5 kg (162 lb) 12/21/2013 72.1 kg (159 lb) PHYSICAL EXAMINATION: General appearance: Well appearing, alert, in no acute distress, well-hydrated, well nourished. Skin: Skin color, texture, turgor normal, no suspicious rashes or lesions Head: Normocephalic, no masses, lesions, tenderness or abnormalities Eyes: Anicteric sclera. Pupils are equally round and reactive to light. Extraocular movements are intact. Lungs: Lungs clear to auscultation. No wheezing, rhonchi, rales Heart: RRR without murmur, gallop, or rubs. No ectopy Abdomen: Normal abdominal exam, Abdomen soft, non-tender. Bowel sounds normal. No masses, organomegaly Extremities: No deformities, edema, skin discoloration, clubbing or cyanosis. Good capillary refill. Musculoskeletal: No joint swelling, deformity, or tenderness ASSESSMENT/PLAN: 1. 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) - ICD9: 250.61, 357.2, ICD10: E10.40 (primary diagnosis) - follow with endo 2. Depression - ICD9: 311, ICD10: F32.A - not using benzo's regularly. Stop them. Discussed that 40 mg of celexa is more appropriate than 60 mg. - CITALOPRAM 40 MG TABLET - HYDROXYZINE PAMOATE 25 MG CAPSULE 3. Other diabetic neurological complication associated with type 2 diabetes mellitus (HCC) - ICD9: 250.60, ICD10: E11.49 4. Hyperlipidemia, unspecified hyperlipidemia type - ICD9: 272.4, ICD10: E78.5 - good control - Continue current medication. 5. Hypertension, unspecified type - ICD9: 401.9, ICD10: I10 - good control - Goal of BP <130/80 6. Coronary artery disease involving [place] heart without angina pectoris, unspecified vessel or lesion type - ICD9: 414.01, ICD10: I25.10 7. Medication monitoring encounter - ICD9: V58.83, ICD10: Z51.81 - TOX SCREEN ROUT UR 8. DDD (degenerative disc disease), lumbar - ICD9: 722.52, ICD10: M51.36 -continue meds. Follow up regularly. - HYDROCODONE 7.5 MG-ACETAMINOPHEN 325 MG TABLET Sandy Braswell MD documented in this encounterKettering Health [place] History of Present illness Narrative* Adriel Solis MD - 02/27/2022 5:35 PM EDT HISTORY AND PHYSICAL Zoraida Flores Renetrinidelmy 1950 REFERRING PHYSICIAN: Sandy Braswell MD CHIEF COMPLAINT: Consult HPI: The patient is a 71 year old female with a complaint of swelling on the anterior shoulder and the right AC joint area. The patient presented to Dr. Braswell. In addition to multiple other complaints she had noticed a knot on her right anterior shoulder area. She stated been there for 2 to 3 months. She notes that the area is sore. She noted no trauma to the area. She underwent an x-ray of the right shoulder on January 27, 2022 which demonstrated: IMPRESSION: Nonspecific soft tissue prominence cephalad to the acromioclavicular joint at the site of palpable abnormality. Mild glenohumeral and moderate acromioclavicular osteoarthritis. He was referred for possible subcutaneous mass/lipoma. Incidentally, the patient now notes a similar area of discomfort with less swelling and her left ACarea. The patient is being seen by me today at the request of Dr. Sandy Braswell MD for my opinion and advice regarding swelling in the right AC joint area. PAST MEDICAL HISTORY Diagnosis Date Atherosclerosis Cataract both eyes Degenerative disc disease Depression Diabetes mellitus (HCC) Essential hypertension, benign Hemorrhage of gastrointestinal tract, unspecified Neuropathy Other acute and subacute form of ischemic heart disease 06/01/1995 Other and unspecified hyperlipidemia Other specified disorders of pancreatic internal secretion PDR (proliferative diabetic retinopathy) (HCC) Pseudophakia of left eye Sleep apnea Unspecified hypothyroidism PAST SURGICAL HISTORY Procedure Laterality Date BALLN ANGIOPLASTY OPEN,FEM-POP COLONOSCOPY FLX DX W/COLLJ SPEC WHEN PFRMD 09/23/2007 Colonoscopy ESOPHAGOGASTRODUODENOSCOPY TRANSORAL DIAGNOSTIC 09/23/2007 EGD PAST SURGICAL HISTORY OF 2004-? Laser Treatments Both Eyes (Ongoing) PERC TRANSL COR ANGIO Percutaneous Transluminal Coronary Angio Status REMV CATARACT EXTRACAP,INSERT LENS Bilateral RMVL LENS MATERIAL PHACOFRAGMENTATION ASPIR os 01/09/2011 Cataract Extraction STENT PLACEMENT 06/01/1995 with HI VITRECTOMY MECHANICAL PARS PLANA os 01/09/2011 [place] Vitrectomy WRIST SPLINT carpal tunnel on R Current Outpatient Medications Medication Sig PEG 400-propylene glycol (SYSTANE ULTRA) 0.4-0.3 % ophthalmic solution Use 1 Drop in both eyes every 2 hours while awake. rosuvastatin (CRESTOR) 40 mg tablet Take 40 mg by mouth once daily. pantoprazole DR (PROTONIX) 40 mg tablet Take 40 mg by mouth once daily. buPROPion SR (ZYBAN SR; WELLBUTRIN SR) 150 mg 12 hr tablet Take 150 mg by mouth every 12 hours. levothyroxine (SYNTHROID) 100 mcg tablet Take 100 mcg by mouth once daily. VENTOLIN HFA 90 mcg/actuation inhaler LYUMJEV U-100 INSULIN 100 unit/mL solution Inject 12-15 Units subcutaneously w MEALS. citalopram (CELEXA) 40 mg tablet Take 1.5 tablets by mouth once daily. insulin glargine (LANTUS) 100 unit/mL injection Inject 80 units subcutaneously in the MORNING and 40 units subcutaneously at BEDTIME. (Patient taking differently: Inject 80 units subcutaneously in the MORNING and 40 units subcutaneously at BEDTIME. Takes 48 units every morning) clopidogrel (PLAVIX) 75 mg tablet Take 1 tablet by mouth once daily. metoprolol succinate ER (TOPROL XL) 100 mg Tb24 Take 1 tablet by mouth once daily. isosorbide dinitrate (ISORDIL, SORBITRATE) 20 mg tablet Take 1 tablet by mouth twice daily. lisinopril-hydrochlorothiazide (PRINZIDE,ZESTORETIC) 20-12.5 mg per tablet Take 1 tablet by mouth once daily. gabapentin (NEURONTIN) 800 mg tablet Take 1 tablet by mouth twice daily. Insulin Syringe-Needle U-100 (ULTRA FINE INSULIN) 1 mL 30 x 1/2" syrg use 5 times a day as directed. diazepam (VALIUM) 5 mg tablet Take 1 tablet by mouth twice daily as needed. HYDROcodone-acetaminophen (NORCO) 5-325 mg per tablet Take 1 tablet by mouth every 6 hours as needed. zolpidem (AMBIEN) 10 mg tab Take 1 tablet by mouth at bedtime as needed. for insomnia. nitroglycerin sublingual (NITROQUICK) 0.4 mg SL tablet Dissolve 1 tablet under the tongue as needed. DISSOLVE ON TONGUE FOR CHEST PAIN. IF NO PAIN RELIEF, CALL 911 blood sugar diagnostic (TRUETEST TEST STRIPS) test strip Test blood sugar 4 times daily. dx 250.00,insulin usage-yes (Patient taking differently: Test blood sugar 4 times daily. dx 250.00, insulin usage-yes Takes blood sugars around three times daily) POLYVINYL ALCOHOL (20/20 ARTIFICIAL TEARS OPHTHALMIC) Use in eyes as needed. HYDROcodone-Acetaminophen (NORCO) 7.5-325 mg per tablet Take 1 tablet by mouth every 6 hours as needed for pain for up to 30 days. blood sugar diagnostic test strip Test blood sugars five times daily calcium carbonate/vitamin d3(CALCIUM 600 + D 600 MG-400 UNIT TAB) Take one(1) tablet daily. (Patient not taking: Reported on 02/27/2022) No current facility-administered medications for this visit. ALLERGIES: Enviromental [Other] PERSONAL HISTORY: Social History Tobacco Use Smoking status: Every Day Packs/day: 1.00 Years: 20.00 Pack years: 20.00 Types: Cigarettes Smokeless tobacco: Never Vaping Use Vaping Use: Never used Substance Use Topics Alcohol use: No Drug use: No FAMILY HISTORY: FAMILY HISTORY Problem Relation Age of Onset Lipids Mother Allergies Mother Arthritis Mother Breast Cancer Mother Cancer Mother stomach COPD Mother Hypertension Mother Thyroid Mother Psychiatry Mother depression Cataract Mother Diabetes Father Prostate Lipids Father Allergies Father Cancer Father stomach Prostate Cancer Father Hypertension Father Stroke Father Thyroid Sister Allergies Sister Cervical Cancer Sister Hypertension Brother Allergies Brother Diabetes Maternal Uncle REVIEW OF SYMPTOMS: The review of systems data was entered by the nurse and reviewed by me There are no exam notes on file for this visit. PHYSICAL EXAMINATION: General: The patient is 71 year old female, well nourished, well hydrated in no acute distress. Thepatient is oriented to time, place, and person. VITALS: Blood pressure 130/62, pulse 76, temperature 36.4 C (97.5 F), temperature source Temporal, resp. rate 16, height 152.4 cm (5'), weight 61.2 kg (135 lb), SpO2 98 %. HEENT: Normal cephalic, ataumatic, pupils are equally round, sclera are anicteric, mucous membranesare moist, oropharynx is clear. Neck has no masses, asymmetry or lymphadenopathy. Thyroid is unremarkable. Respiratory: Clear to auscultation and percussion. Normal respiratory excursion and pattern. Cardiac: Examination is regular rate and rhythm. Abdominal exam: exam deferred Rectal exam: exam deferred Extremities: no clubbing, cyanosis or edema. No adenopathy. Other: Right AC joint area-a 2 cm subcutaneous swelling poorly mobile not connected to the skin. LABORATORY VALUES: As Noted RADIOLOGIC STUDIES: As Noted Intraoffice ultrasound was obtained. This demonstrated what appeared to be a cystic area arising from the AC joint area approximately 2 cm in size which appeared to be fluid-filled felt to be consistent with AC joint bursitis. Looking with ultrasound on the left AC joint area there was no fluid butthere is speared to be a prominence of the AC joint on ultrasound. No signs consistent with lipoma or nonorthopedic masses in the area were noted. Assessment IMPRESSION: Fluid-filled collection near the right AC joint-questionable right AC joint bursitis PLAN: Discussed with the patient is not a lipoma in the area. That I will refer the patient to Dr. He for evaluation and possible treatment. Diagnoses: (M75.51) Acute shoulder bursitis, right (primary encounter diagnosis) (R22.9) Lump of skin My findings have been communicated to Dr. Sandy Braswell MD via shared medical record. This note will be forwarded to Dr. Sandy Braswell MD. Return to Clinic: The patient is instructed to follow-up with me as needed. Adriel Solis MD * Claudine Thao ENGINE CLEANER - 02/27/2022 10:02 AM EDT REVIEW OF SYSTEMS: General: The patient denies fatigue, denies weight loss, denies weight gain, denies feeling hot, and denies feelings of cold. Eyes: The patient denies glaucoma, notes eye injury/surgery, wears glasses. Ear/Nose/Throat: The patient notes allergies, denies hayfever, denies ear infections, and denies bloody noses. Cardiovascular: The patient denies chest pain, notes heart disease, notes high blood pressure,notescardiac stent, notes prior heart attack, denies irregular heart beat, notes high cholesterol, denies poor circulation, denies heart failure, other cardiac issues, notes claudication, denies cold feet, notes peripheral arterial stent. Respiratory: The patient denies tuberculosis, denies pneumonia, denies frequent cough, denies pulmonary embolism, notes shortness of breath, and denies coughing up blood. Gastrointestinal: The patient denies difficulty swallowing, notes acid reflux, denies ulcers, denies vomiting, denies jaundice/hepatitis, denies gallbladder problems, denies black or tarry stools, denies hemorrhoids, denies bleeding from rectum, denies diverticulitis, notes constipation, denies diarrhea, denies loss of stool control, and notes hernias. Kidney/Bladder: The patient denies kidney stones, notes kidney failure, denies urine infections, and denies bloody urine. Skin: The patient denies a history of skin cancer, denies bleeding/changing moles, and denies a history of skin rash. Neurologic: The patient denies a history of epilepsy/convulsions, denies headaches, denies head/spinal injuries, and denies stroke/TIA. Psychiatric: The patient denies psychiatric medications, denies depression, and denies voices, denies substance abuse. Endocrine: The patient notes thyroid disorders, notes diabetes, and denies hormonal problems. Hematologic: The patient notes a history of bruising, notes bleeding, and denies anemia, denies blood clots. Infections: The patient denies a history of measles and mumps, denies rheumatic fever, and denies sexually transmitted diseases. Musculoskeletal: The patient notes back pain/injury, notes back problems, denies sciatica, denies knee/foot trouble, notes arthritis, or denies gout. When was patient's last Mammogram screening? September 2021 Last Colonoscopy: Three years ago Claudine Thao LPN [facility] [place] History of Present illness Narrative* Hannah Rivera, OD - 02/07/2022 3:25 PM EDT 1. 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 S/p Panretinal laser photocoagulation Both Eyes H/o vitreous heme right eye-resolved No DME on OCT-mac Recommended establishing care with Dr. Montalvo in [place] 2. Pseudophakia Observe 3. Punctate keratitis, bilateral Diffuse keratitis bilateral Recommended aggressive lubrication 4 times daily and gel nightly Follow-up in 2 weeks 4. PCO (posterior capsular opacification), right Continue to monitor Will repeat refraction in 2 weeks Hannah Rivera, OD February 07, 2022 3:25 PM documented in this [facility] [place]22 Instructions* Patient Instructions* Hannah Rivera, OD - 02/07/2022 10:58 AM EDT Use Systane Ultra, Systane Complete or Refresh Relieva every 2-3 hours in both eyes Use Systane/Refresh gel or ointment at nighttime before bed both eyes documented [facility] [place]-2022 Miscellaneous Notes* Telephone Encounter - Ramona Burger LPN - 02/05/2022 11:24 AM EDT Pt called & stated she contacted [facility] [place] & they will see her with a referral. Pt will be seeing Dr Jose Alfredo Meadows - appt will be scheduled when they receive referral & pt information. Last OV notes, labs, radiology, referral & pt demographics faxed to [phone]. . Ramona Burger LPN * Telephone Encounter - Lissette Tran - 02/05/2022 10:34 AM EDT Called PT spoke to her voices that the locations for Nephrology are to far, is looking for something closer to [place] as PT does not have a car. Thanks * Telephone Encounter - Sunday Peng LPN - 02/05/2022 10:17 AM EDT Pt notified. She verbalized understanding. Schedulers please assist pt with scheduling appt with Nephrology. Sunday Peng LPN * Telephone Encounter - Sandy Braswell MD - 02/05/2022 8:05 AM EDT Her 24 hour urine is positive for protein. That would require her seeing a marketing proposal specialist. We will goahead and get it set up. documented in this encounterK[facility] [place]-2022 Miscellaneous Notes* Telephone Encounter - Radha Butler Ma - 01/31/2022 4:50 PM EDT Form on providers desk to be checked off. Once completed, will be faxed back. Radha Butler Ma * Telephone Encounter - Sandy Braswell MD - 01/31/2022 4:32 PM EDT I would need form * Telephone Encounter - Treva De Anda RN - 01/31/2022 4:20 PM EDT Randalem with [facility] reports they received the form back from provider on 01/29/22 for Pts Diabetic supplies, but the provider never addressed the Pts type of Diabetes. He reports they need this to be addressed and the forms to be faxed back to them. documented in this encounterK[facility] [place]09[facility]22 History of Present illness Narrative* Irasema Will RDMS - 01/31/2022 10:30 AM EDT Radiology Service Progress Note PATIENT NAME: Zoraida Pires DATE OF SERVICE: January 31, 2022 TIME: 10:45 AM PATIENT IDENTITY VERIFICATION COMPLETED USING TWO (2) IDENTIFIERS: Name and Date of confirmedby patient verbally. FALL SCREENING: Has the patient had 2 falls in the last year or 1 fall with injury or currently using an Ambulatory Assistive Device (Walker, Cane, Wheelchair, Crutches, etc.)? No PATIENT GENDER DATA: Female. status: : No status: NO. PATIENT RELEVANT IMPLANT DATA REVIEWED: Not Applicable RADIOLOGY DEPARTMENT: Ultrasound PERIPHERAL IV DATA: Not applicable SIGNED BY: Irasema Will RDMS RVT January 31, 2022 10:45 AM documented in this encounterK[facility] [place]09-[facility]-2022 Instructions* Patient Instructions* Albert Good - 01/31/2022 10:05 AM EDT Diabetes Foot Care Instructions When you have diabetes, proper foot care is very important. Poor foot care may lead to amputation of a foot or leg. As a person with diabetes, you are more vulnerable to foot problems, because diabetes can damage your nerves and reduce blood flow to your feet. Here are some diabetes foot care tips to follow: Wash and Dry Your Feet Daily Use mild soaps Use warm water Pat your skin dry; do not rub. Thoroughly dry your feet. After washing, use lotion on your feet to prevent cracking. Do not put lotion between your toes. Examine Your Feet Each Day Check the tops and bottoms of your feet. Have someone else look at your feet if you cannot see them. Check for dry, cracked skin. Look for blisters, cuts, scratches, or other sores. Check for redness, increased warmth, or tenderness when touching any area of your feet. Check for ingrown toenails, corns, and calluses. If you get a blister or sore from your shoes, do not "pop" it. Apply a bandage and wear a differentpair of shoes. Take Care of Your Toenails Cut toenails after bathing, when they are soft. Cut toenails straight across and smooth with a nail file. Avoid cutting into the corners of toes. Do not cut cuticles. If you have neuropathy (or decreased sensation in your feet) a clerical aide should always cut your toenails. Be Careful When Exercising Walk and exercise in comfortable shoes. Do not exercise when you have open sores on your feet. Protect Your Feet With Shoes and Socks Never go barefoot. Always protect your feet by wearing shoes or hard-soled slippers or footwear. Avoid shoes with high heels and pointed toes. Avoid shoes that expose your toes or heels (such as open-toed shoes or sandals). These types of shoes increase your risk for injury and potential infections. Try on new footwear with the type of socks you usually wear. Do not wear new shoes for more than an hour at a time. Change your socks daily. Look and feel inside your shoes before putting them on to make sure there are no foreign objects orrough areas. Avoid tight socks. Wear natural-fiber socks (cotton, wool, or a cotton-wool blend). Wear special shoes if your health care provider recommends them. Wear shoes/boots that will protect your feet from various weather conditions (cold, moisture, etc.). Make sure your shoes fit properly. If you have neuropathy (nerve damage), you may not notice that your shoes are too tight. Perform the "footwear test" described below. Footwear Test Use this simple test to see if your shoes fit correctly: Stand on a piece of paper. (Make sure you are standing and not sitting, because your foot changes shape when you stand.) Trace the outline of your foot. Trace the outline of your shoe. Compare the tracings: Is the shoe too narrow? Is your foot crammed into the shoe? The shoe should be at least 1/2 inch longer than your longest toe and as wide as your foot. Proper Shoe Choices The following types of shoes are best for people with diabetes Closed toes and heels Leather uppers without a seam inside At least 1/2 inch extra space at the end of your longest toe Inside of shoe should be soft with no rough areas Outer sole should be made of stiff material Shoes should be at least as wide as your feet Tips for Foot Care in Diabetes Don't wait to treat a minor foot problem if you have diabetes. Follow your health care provider's guidelines and first aid guidelines. Report foot injuries and infections to your health care provider immediately. Check water temperature with your elbow, not your foot. Do not use a heating pad on your feet. Do not cross your legs. Do not self-treat your corns, calluses, or other foot problems. Go to your health care provider or clerical aide to treat these conditions. documented in this encounterK[facility] [place]22 History of Present illness Narrative* Albert Good - 01/31/2022 9:55 AM EDT Consultation requested by Dr. Braswell for an opinion regarding diabetic foot exam. My final recommendations will be communicated back to the requesting physician by way of shared Medical record or letter to requesting physician via US mail. Last saw Dr. Braswell: 01/27/22 Initial Office Visit Subjective: This 71 year old male presents to clinic for diabetic foot check. Patient has the following complaints: ingrowing toenails of b/l hallux. Patient states she went to another clerical aide in [place] who performed a fungal culture. Fungal culture apparently was negative. Patient has been seeing this doctor in [place] who treated patient with debridement. She has now moved back to [place] and is here to establish care. Patient admits to being diabetic for 51 years now. Patient +B/T/N in feet at this time. Patient -pain in legs when walking. No other pedal complaints at this time. No change in medications or medical history since last visit. PAIN EVALUATION 01/31/2022 0939 Pain Level: 2 Pain Location: Toe Description: Sore Duration Amount of Time: 1 Duration Units: Months Frequency: Intermittent Intervention/Comfort measure: Reposition;Relaxation Hemoglobin A1C Date Value 11/13/2021 7.7 06/29/2014 8.5 % 12/19/2013 8.5 % 05/31/2013 8.3 % 12/09/2012 7.9 % 08/28/2012 8.2 % PCP: Sandy Braswell MD PAST MEDICAL HISTORY Diagnosis Date Atherosclerosis Cataract od Degenerative disc disease Depression Diabetes mellitus (HCC) Essential hypertension, benign Hemorrhage of gastrointestinal tract, unspecified Neuropathy Other acute and subacute form of ischemic heart disease 1995 Other and unspecified hyperlipidemia Other specified disorders of pancreatic internal secretion PDR (proliferative diabetic retinopathy) ([facility]) Pseudophakia of left eye Sleep apnea Unspecified hypothyroidism Current Outpatient Medications Medication Sig rosuvastatin (CRESTOR) 40 mg tablet Take 40 mg by mouth once daily. pantoprazole DR (PROTONIX) 40 mg tablet Take 40 mg by mouth once daily. buPROPion SR (ZYBAN SR; WELLBUTRIN SR) 150 mg 12 hr tablet Take 150 mg by mouth every 12 hours. levothyroxine (SYNTHROID) 100 mcg tablet Take 100 mcg by mouth once daily. VENTOLIN HFA 90 mcg/actuation inhaler LYUMJEV U-100 INSULIN 100 unit/mL solution Inject 12-15 Units subcutaneously w MEALS. HYDROcodone-Acetaminophen (NORCO) 7.5-325 mg per tablet Take 1 tablet by mouth every 6 hours as needed for pain for up to 30 days. citalopram (CELEXA) 40 mg tablet Take 1.5 tablets by mouth once daily. insulin glargine (LANTUS) 100 unit/mL injection Inject 80 units subcutaneously in the MORNING and 40 units subcutaneously at BEDTIME. clopidogrel (PLAVIX) 75 mg tablet Take 1 tablet by mouth once daily. metoprolol succinate ER (TOPROL XL) 100 mg Tb24 Take 1 tablet by mouth once daily. isosorbide dinitrate (ISORDIL, SORBITRATE) 20 mg tablet Take 1 tablet by mouth twice daily. lisinopril-hydrochlorothiazide (PRINZIDE,ZESTORETIC) 20-12.5 mg per tablet Take 1 tablet by mouth once daily. gabapentin (NEURONTIN) 800 mg tablet Take 1 tablet by mouth twice daily. Insulin Syringe-Needle U-100 (ULTRA FINE INSULIN) 1 mL 30 x 1/2" syrg use 5 times a day as directed. diazepam (VALIUM) 5 mg tablet Take 1 tablet by mouth twice daily as needed. HYDROcodone-acetaminophen (NORCO) 5-325 mg per tablet Take 1 tablet by mouth every 6 hours as needed. zolpidem (AMBIEN) 10 mg tab Take 1 tablet by mouth at bedtime as needed. for insomnia. nitroglycerin sublingual (NITROQUICK) 0.4 mg SL tablet Dissolve 1 tablet under the tongue as needed. DISSOLVE ON TONGUE FOR CHEST PAIN. IF NO PAIN RELIEF, CALL 911 blood sugar diagnostic (TRUETEST TEST STRIPS) test strip Test blood sugar 4 times daily. dx 250.00,insulin usage-yes POLYVINYL ALCOHOL (20/20 ARTIFICIAL TEARS OPHTHALMIC) Use in eyes as needed. blood sugar diagnostic test strip Test blood sugars five times daily calcium carbonate/vitamin d3(CALCIUM 600 + D 600 MG-400 UNIT TAB) Take one(1) tablet daily. No current facility-administered medications for this visit. ALLERGIES Allergen Reactions Enviromental [Other] Itching PAST SURGICAL HISTORY Procedure Laterality Date BALLN ANGIOPLASTY OPEN,FEM-POP COLONOSCOPY FLX DX W/COLLJ SPEC WHEN PFRMD 09/23/2007 Colonoscopy ESOPHAGOGASTRODUODENOSCOPY TRANSORAL DIAGNOSTIC 09/23/2007 EGD PAST SURGICAL HISTORY OF 2005-? Laser Treatments Both Eyes (Ongoing) PERC TRANSL COR ANGIO Percutaneous Transluminal Coronary Angio Status RMVL LENS MATERIAL PHACOFRAGMENTATION ASPIR os 01/09/2011 Cataract Extraction STENT PLACEMENT 1995 with HI VITRECTOMY MECHANICAL PARS PLANA os 01/09/2011 [place] Vitrectomy WRIST SPLINT carpal tunnel on R FAMILY HISTORY Problem Relation Age of Onset Diabetes Father Prostate Lipids Father Allergies Father Cancer Father stomach Prostate Cancer Father Hypertension Father Stroke Father Lipids Mother Allergies Mother Arthritis Mother Breast Cancer Mother Cancer Mother stomach COPD Mother Hypertension Mother Thyroid Mother Psychiatry Mother depression Cataract Mother Diabetes Maternal Uncle Allergies Sister Allergies Brother Cervical Cancer Sister Hypertension Brother Thyroid Sister Social History Tobacco Use Smoking status: Every Day Packs/day: 1.00 Years: 20.00 Pack years: 20.00 Types: Cigarettes Smokeless tobacco: Never Substance Use Topics Alcohol use: No Drug use: No REVIEW OF SYSTEMS GENERAL: Negative for Malaise, significant weight loss, fever RESPIRATORY: Negative for cough, wheezing and shortness of breath CARDIOVASCULAR: Negative for chest pain, leg swelling and palpitations GI: Negative for abdominal discomfort, blood in stools or black stools and change in bowel habits : Negative for dysuria, frequency and incontinence MUSCULOSKELETAL: Negative for joint pain or swelling, back pain, and muscle pain. SKIN: Negative for lesions, rash, and itching. HEMATOLOGY/LYMPHOLOGY Negative for prolonged bleeding, bruising easily, and swollen nodes. ENDOCRINE: Negative for cold or heat intolerance, polyuria, polydipsia and goiter. NEURO: negative The remainder of the review of systems is noncontributory. Objective: Patient presents to clinic ambulating in [facility] Constitutional: Pt is a well developed 71 year old female who is alert, oriented, cooperative and in no apparent distress. Eyes: Following during examination. No redness or drainage. Respiratory: RR normal and nonlabored. Even breathing. No evidence of distress. Psychology: Patient is engaged during conversation. Normal affect and mood. Does not appear depressed or anxious. Vasc: DP and PT pulses are faint bilateral. CFT is less than 5 seconds bilateral. Skin temperature is warm to cool proximal to distal bilateral. There is no edema or varicosities noted. Hair growth absent. Neuro: Protective sensation is absent to the foot and toes when tested with the 5.07 SWM bilateral.Vibratory sensation is absent at the hallux bilateral. + Significant neurological defecits. Derm: Inspection and palpation performed. Nails 1-5 b/l are painful, discolored- yellow, thick, crumbly, dystrophic and with subungal debris. Skin is of thin, dry, pallor. Hyperkeratosis not present no ulcerations, scars, verruca or other lesions noted. Ortho: Ankle joint DF is decreased with the knee extended and decreased with knee flexed. No pain or crepitus noted. STJ, MTJ ROM are full and free of pain or crepitus. Muscle strength is 5/5 for dorsiflexors, plantarflexors, inverters, everters. Digital deformities include tailors bunion. Assessment: (E11.49) Other diabetic neurological complication associated with type 2 diabetes mellitus (HCC) (primary encounter diagnosis) (M21.621, M21.622) Tailor's bunion of both feet (R09.89) Diminished pulses in lower extremity (B35.1) Onychomycosis (M79.675) Pain in toe of left foot (M79.674) Pain in toe of right foot Plan: 1. Patient was seen and evaluated. 2. Patient was instructed on the continued importance of diabetic foot care along with proper diet and keeping their blood sugar under control to prevent complications. Instructions given both oral and written. 3. Discussed tailors bunion of b/l feet. Offered diabetic shoes. She declined. Continue with wider shoes 4. Toenails 1-5 b/l debrided in length and thickness Albert Good DPM * Elida Lafleur LPN - 01/31/2022 9:38 AM EDT AMB ROOMING INTAKE FLOWSHEET DATA Risk Screening Do you have concerns about personal safety or safety in the home?: No Pain Pain Level: 2 Pain Location: Toe Description: Sore Duration Amount of Time: 1 Duration Units: Months Frequency: Intermittent Intervention/Comfort measure: Reposition, Relaxation Patient presents with: Left Foot - Established Patient, Follow Up, Diabetic Foot Care Right Foot - Established Patient, Follow Up, Pain, Diabetic Foot Care Elida Lafleur LPN documented in this encounter[facility] Miscellaneous Notes* Telephone Encounter - Radha Butler Ma - 01/30/2022 1:00 PM EDT Rx taken to med recs * Telephone Encounter - Yessi Talamantes LPN - 01/30/2022 12:18 PM EDT Pt called and stated she received a call the the prescription was done for the walker and to let you know she would like the walker prescription taken to Medical Records and 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 Yessi Talamantes LPN documented in this encounterK[facility]09-01-2022 Miscellaneous Notes* Telephone Encounter - Yessi Talamantes LPN - 01/30/2022 12:14 PM EDT Pt states has an apt scheduled with Dr. Solis. Yessi Talamantes LPN * Telephone Encounter - Adelaida Joe - 01/29/2022 2:57 PM EDT 1st failed attempt to schedule consult to [facility] w/pinky Adelaida Joe PSS * Telephone Encounter - Shavonne Mccauley MA - 01/29/2022 11:15 AM EDT Please assist patient with scheduling GEN SURG. Shavonne Mccauley MA * Telephone Encounter - Sandy Braswell MD - 01/29/2022 11:06 AM EDT Order placed. * Telephone Encounter - Treva De Anda RN - 01/29/2022 10:56 AM EDT Pt called and is notified of providers results and message. Pt reports she would like to see surgery and see what they have to say about it. Treva De Anda RN * Telephone Encounter - Alisson Marshall Ma - 01/29/2022 8:39 AM EDT Message left for pt to call back. Alisson Marshall MA * Telephone Encounter - Treva De Anda RN - 01/27/2022 4:54 PM EDT Called and left a voicemail for the Patient to call back and ask for a nurse to receive the providers message. Treva De Anda RN * Telephone Encounter - Sandy Braswell MD - 01/27/2022 4:35 PM EDT No bone issue of significance. It does show some soft tissue that may be what I was feeling. We cansend her to surgery to see if they would remove it. Willing? documented in this encounterK[facility]08-30-2022 Miscellaneous Notes* Telephone Encounter - Juana Hansen RN - 01/28/2022 10:54 AM EDT Patient returned call and given provider's message below. Patient reports urinary frequency and states her urine is darker than usual. Explained importance of drinking fluids. Patient will get urine testing completed as recommended by Dr. Braswell. Juana Hansen RN * Telephone Encounter - Sandy Braswell MD - 01/28/2022 8:15 AM EDT Her microalbumin is actually better than it was. Her current meds will help that(lisinopril) Her urine is showing a number of things which may simply be a contaminant vs infection. Recheck urina in next week. Any uti symptoms? May have protein in urine. Do 24 hour urine for protein and renal us(already ordered) documented in this encounterK[facility]08-29-2022 History of Present illness Narrative* Iliana Naqvi RT(R) - 01/27/2022 3:00 PM EDT Radiology Service Progress Note PATIENT NAME: Zoraida Pires DATE OF SERVICE: January 27, 2022 TIME: 3:04 PM PATIENT IDENTITY VERIFICATION COMPLETED USING TWO (2) IDENTIFIERS: Name and Date of confirmedby patient verbally. FALL SCREENING: Has the patient had 2 falls in the last year or 1 fall with injury or currently using an Ambulatory Assistive Device (Walker, Cane, Wheelchair, Crutches, etc.)? No PATIENT GENDER DATA: Female. status: : No status: NO. PATIENT RELEVANT IMPLANT DATA REVIEWED: Not Applicable RADIOLOGY DEPARTMENT: General X-ray: Exam(s) Completed: Upper Extremity X- Ray(s): Shoulder, AP / TRUE AP / AXILLARY right PERIPHERAL IV DATA: Not applicable SIGNED BY: RT Juwan(R) January 27, 2022 3:04 PM documented in this encounterK[facility]08-29-2022 History of Present illness Narrative* Sandy Braswell MD - 01/27/2022 1:24 PM EDT Patient presents with: New Patient: Previous Pt of Dr. Braswell. Here to re-establish care HPI: Patient presents today for office visit for follow up. Last seen in 2014. Was in [place], [place]. Must moved back to [place] the beginning of the month. Just had labs in November. Fairly complicated history. DM:was seeing endocrinology. Last a1c was better than it used to be HYPERTENSION:denies current chest pain No worsening shortness of breath. No worsening edema. HLD:no myalgias. PSYCH:adjusting to meds. Feels she is overall doing well Hypothyroidism. Most recent tsh was stable. Was seeing cardiology and endocrinology. Seeing Dr. Palumbo in March. Last hba1c was 7.9. used to be on above 9.0. has an insulin pump remotely. Was checking her sugars 4 to 5 times a day. Now uses a cgm. Needs paperwork done. Average sugar Will be seeing podiatry soon. Needs to see optho Was seeing pain management and they had discussed a pain pump. Has a small ventral hernia. Got ct scan of her lungs in October. Gets annual screening. Has a knot on her right collar bone. Has been there for two or three months. No trauma. Hurts periodically. Her renal function was stable. But she had some microalbuminuria. They had discussed having her seenephrology for that. Offered to recheck labs to be sure since her labs were otherwise ok. Has known renal cysts. Needs optho for her dm. Just had mammogram and bone density this past summer. Not using cpap. MEDICATIONS: Current Outpatient Medications Medication Sig rosuvastatin (CRESTOR) 40 mg tablet Take 40 mg by mouth once daily. pantoprazole DR (PROTONIX) 40 mg tablet Take 40 mg by mouth once daily. buPROPion SR (ZYBAN SR; WELLBUTRIN SR) 150 mg 12 hr tablet Take 150 mg by mouth every 12 hours. levothyroxine (SYNTHROID) 100 mcg tablet Take 100 mcg by mouth once daily. VENTOLIN HFA 90 mcg/actuation inhaler LYUMJEV U-100 INSULIN 100 unit/mL solution Inject 12-15 Units subcutaneously w MEALS. citalopram (CELEXA) 40 mg tablet Take 1.5 tablets by mouth once daily. insulin glargine (LANTUS) 100 unit/mL injection Inject 80 units subcutaneously in the MORNING and 40 units subcutaneously at BEDTIME. clopidogrel (PLAVIX) 75 mg tablet Take 1 tablet by mouth once daily. metoprolol succinate ER (TOPROL XL) 100 mg Tb24 Take 1 tablet by mouth once daily. isosorbide dinitrate (ISORDIL, SORBITRATE) 20 mg tablet Take 1 tablet by mouth twice daily. lisinopril-hydrochlorothiazide (PRINZIDE,ZESTORETIC) 20-12.5 mg per tablet Take 1 tablet by mouth once daily. gabapentin (NEURONTIN) 800 mg tablet Take 1 tablet by mouth twice daily. Insulin Syringe-Needle U-100 (ULTRA FINE INSULIN) 1 mL 30 x 1/2" syrg use 5 times a day as directed. diazepam (VALIUM) 5 mg tablet Take 1 tablet by mouth twice daily as needed. HYDROcodone-acetaminophen (NORCO) 5-325 mg per tablet Take 1 tablet by mouth every 6 hours as needed. zolpidem (AMBIEN) 10 mg tab Take 1 tablet by mouth at bedtime as needed. for insomnia. nitroglycerin sublingual (NITROQUICK) 0.4 mg SL tablet Dissolve 1 tablet under the tongue as needed. DISSOLVE ON TONGUE FOR CHEST PAIN. IF NO PAIN RELIEF, CALL 911 blood sugar diagnostic (TRUETEST TEST STRIPS) test strip Test blood sugar 4 times daily. dx 250.00,insulin usage-yes POLYVINYL ALCOHOL (20/20 ARTIFICIAL TEARS OPHTHALMIC) Use in eyes as needed. blood sugar diagnostic test strip Test blood sugars five times daily calcium carbonate/vitamin d3(CALCIUM 600 + D 600 MG-400 UNIT TAB) Take one(1) tablet daily. No current facility-administered medications for this visit. ALLERGIES: ALLERGIES Allergen Reactions Enviromental [Other] Itching PAST MEDICAL HISTORY Diagnosis Date Atherosclerosis Cataract od Degenerative disc disease Depression Diabetes mellitus (HCC) Essential hypertension, benign Hemorrhage of gastrointestinal tract, unspecified Neuropathy Other acute and subacute form of ischemic heart disease 1995 Other and unspecified hyperlipidemia Other specified disorders of pancreatic internal secretion PDR (proliferative diabetic retinopathy) (HCC) Pseudophakia of left eye Sleep apnea Unspecified hypothyroidism PAST SURGICAL HISTORY Procedure Laterality Date BALLN ANGIOPLASTY OPEN,FEM-POP COLONOSCOPY FLX DX W/COLLJ SPEC WHEN PFRMD 09/23/2007 Colonoscopy ESOPHAGOGASTRODUODENOSCOPY TRANSORAL DIAGNOSTIC 09/23/2007 EGD PAST SURGICAL HISTORY OF 2004-? Laser Treatments Both Eyes (Ongoing) PERC TRANSL COR ANGIO Percutaneous Transluminal Coronary Angio Status RMVL LENS MATERIAL PHACOFRAGMENTATION ASPIR os 01/09/2011 Cataract Extraction STENT PLACEMENT 1995 with HI VITRECTOMY MECHANICAL PARS PLANA os 01/09/2011 [place] Vitrectomy WRIST SPLINT carpal tunnel on R FAMILY HISTORY Problem Relation Age of Onset Diabetes Father Prostate Lipids Father Allergies Father Cancer Father stomach Prostate Cancer Father Hypertension Father Stroke Father Lipids Mother Allergies Mother Arthritis Mother Breast Cancer Mother Cancer Mother stomach COPD Mother Hypertension Mother Thyroid Mother Psychiatry Mother depression Cataract Mother Diabetes Maternal Uncle Allergies Sister Allergies Brother Cervical Cancer Sister Hypertension Brother Thyroid Sister Social History Tobacco Use Smoking status: Every Day Packs/day: 1.00 Years: 20.00 Pack years: 20.00 Types: Cigarettes Smokeless tobacco: Never Substance Use Topics Alcohol use: No Drug use: No Reviewed current medications, allergies, past medical history, surgical history, family history andsocial history today. REVIEW OF SYSTEMS All other reviewed and negative other than HPI. HEALTH MAINTENANCE: Reviewed health maintenance issues today and recommended the following in detail. VITALS: BP (!) 120/48 Pulse 64 Ht 153.7 cm (5' 0.5") Wt 62.1 kg (137 lb) SpO2 97% BMI 26.32 kg/m Last 4 Encounter Wt Readings: Date: Wt: 01/27/2022 62.1 kg (137 lb) 07/03/2014 73.5 kg (162 lb) 12/21/2013 72.1 kg (159 lb) 10/05/2013 73.5 kg (162 lb) PHYSICAL EXAMINATION: General appearance: Well appearing, alert, in no acute distress, well-hydrated, well nourished. Skin: mobile palpable lump over right anterior shoulder. Not hot or red. She is concerned it is bony. Seems to be soft tissue related. Head: Normocephalic, no masses, lesions, tenderness or abnormalities Eyes: Anicteric sclera. Pupils are equally round and reactive to light. Extraocular movements are intact. Neck: Supple, no adenopathy; thyroid symmetric, normal size, no bruits Lungs: Lungs clear to auscultation. No wheezing, rhonchi, rales Heart: RRR without murmur, gallop, or rubs. No ectopy Abdomen: Normal abdominal exam, Abdomen soft, non-tender. Bowel sounds normal. No masses, organomegaly Extremities: No deformities, edema, skin discoloration, clubbing or cyanosis. Good capillary refill. Musculoskeletal: No joint swelling, deformity, or tenderness ASSESSMENT/PLAN: 1. 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) - ICD9: 250.61, 357.2, ICD10: E10.40 (primary diagnosis) improved control - Continue current medications - CONSULT TO OPHTHALMOLOGY - BASIC METABOLIC PNL - ALBUMIN/CREAT RATIO RND UR - continue cgm. Forms completed. Reviewed with patient. See optho and endo. 2. Albuminuria - ICD9: 791.0, ICD10: R80.9 - check labs to see if nephro is needed. Is on an carlos. Reinforced good bp control - BASIC METABOLIC PNL - ALBUMIN/CREAT RATIO RND UR - URINALYSIS, WITH MICROSCOPIC 3 Coronary artery disease of [place] heart with stable angina pectoris, unspecified vessel or lesiontype (HCC) - ICD9: 414.01, 413.9, ICD10: I25.118 - call if any issues. See cardiology - CONSULT TO CARDIOLOGY 4. Diabetic polyneuropathy associated with type 1 diabetes mellitus (HCC) - ICD9: 250.61, 357.2, ICD10: E10.42 - CONSULT TO OPHTHALMOLOGY 5. Microalbuminuria - ICD9: 791.0, ICD10: R80.9 - URINALYSIS, WITH MICROSCOPIC 6. DDD of spine - oarrs done. Aware of risks and benefits. Has been on opiates for literally years. Has seen multiple pain providers. See pain management. Will prescribe until they see her. 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 - CONSULT TO PAIN MGT - HYDROCODONE 7.5 MG-ACETAMINOPHEN 325 MG TABLET 8. Chronic right shoulder pain - ICD9: 719.41, 338.29, ICD10: M25.511, G89.29 - get xray. Consider surgery referral if appears to be soft tissues. - XR SHOULDER GENERAL 3V OR MORE AP/TRUE AP/OTHER RIGHT 9. Renal cyst - ICD9: 753.10, ICD10: N28.1 - seen on ct scan. - US KIDNEY/BLADDER 10. Obstructive sleep apnea - ICD9: 327.23, ICD10: G47.33 - continue to follow Sandy Braswell MD Rto in one month documented in this encounterK[facility]07-28-2022 Miscellaneous Notes* Telephone Encounter - Lissette Tran - 12/26/2021 9:15 AM EDT PT Has been scheduled with Dr. Braswell Thanks Lissette Tran PSS * Telephone Encounter - Nina Simons LPN - 12/26/2021 8:50 AM EDT PSS ok to set up will need chart demographics/insurance updated. Schedule in "physical"spot on Dr Braswell schedule. * Telephone Encounter - Sandy Braswell MD - 12/25/2021 5:39 PM EDT ok * Telephone Encounter - Debi Grimaldo LPN - 12/25/2021 4:01 PM EDT Patient calling she was a patient of Dr Braswell last seen in 2014, she is moving back to [place] on 12/28.She is moving to the [facility] and is asking if she could have Dr Braswell as her PCP again? Please advise documented in this encounterK[facility]01-10-2020 History of Past illness Narrative* Problem Noted Date Resolved Date Proliferative diabetic retinopathy 06/10/2019 09/19/2022 Infection of prepatellar bursa 01/05/2019 0 09/19/2022 Angina pectoris 02/02/2018 09/19/2022 Diabetic neuropathy 07/03/2017 09/19/2022 Osteoarthrosis 07/03/2017 09/19/2022 Stented coronary artery 07/03/2017 09/20/19 23 Pain in joint, pelvic region and thigh 4 09/19/2022 Pain in joint, lower leg 07/01/2013 023 Type II or unspecified type diabetes mellitus with ophthalmic manifestations, not stated as uncontrolled(250.50) 04/19/2012 07/18/2014 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 Gomez Routine gynecological examination 10/23/2010 05/31/2012 Overview: Dr. 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 07/04/2010 09/19/2022 Blood in stool 09/23/2007 09/19/2022 Special screening for malignant neoplasms, colon 06/16/2007 05/31/2012 Disturbance of skin sensation 06/29/2003 documented as of this encounter (statuses as of 09/20/2022) [facility] of Past illness Narrative* Problem Noted Date Resolved Date Proliferative diabetic retinopathy 06/10/2019 09/19/2022 Infection of prepatellar bursa 01/05/2019 0 09/19/2022 Angina pectoris 02/02/2018 09/19/2022 Diabetic neuropathy 07/03/2017 09/19/2022 Osteoarthrosis 07/03/2017 09/19/2022 Stented coronary artery 07/03/2017 09/20/19 23 Pain in joint, pelvic region and thigh 4 09/19/2022 Pain in joint, lower leg 07/01/2013 023 Type II or unspecified type diabetes mellitus with ophthalmic manifestations, not stated as uncontrolled(250.50) 04/19/2012 07/18/2014 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 Gomez Routine gynecological examination 10/23/2010 05/31/2012 Overview: Dr. 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 07/04/2010 09/19/2022 Blood in stool 09/23/2007 09/19/2022 Special screening for malignant neoplasms, colon 06/16/2007 05/31/2012 Disturbance of skin sensation 06/29/2003 documented as of this encounter (statuses as of 09/24/2022) [facility] of Past illness Narrative* Problem Noted Date Resolved Date Proliferative diabetic retinopathy 06/10/2019 09/19/2022 Infection of prepatellar bursa 01/05/2019 0 09/19/2022 Angina pectoris 02/02/2018 09/19/2022 Diabetic neuropathy 07/03/2017 09/19/2022 Osteoarthrosis 07/03/2017 09/19/2022 Stented coronary artery 07/03/2017 09/20/19 23 Pain in joint, pelvic region and thigh 4 09/19/2022 Pain in joint, lower leg 07/01/2013 023 Type II or unspecified type diabetes mellitus with ophthalmic manifestations, not stated as uncontrolled(250.50) 04/19/2012 07/18/2014 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 Gomez Routine gynecological examination 10/23/2010 05/31/2012 Overview: Dr. 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 07/04/2010 09/19/2022 Blood in stool 09/23/2007 09/19/2022 Special screening for malignant neoplasms, colon 06/16/2007 05/31/2012 Disturbance of skin sensation 06/29/2003 documented as of this encounter (statuses as of 09/26/2022) [facility] of Past illness Narrative* Problem Noted Date Resolved Date Proliferative diabetic retinopathy 06/10/2019 09/19/2022 Infection of prepatellar bursa 01/05/2019 0 09/19/2022 Angina pectoris 02/02/2018 09/19/2022 Diabetic neuropathy 07/03/2017 09/19/2022 Osteoarthrosis 07/03/2017 09/19/2022 Stented coronary artery 07/03/2017 09/20/19 23 Pain in joint, pelvic region and thigh 4 09/19/2022 Pain in joint, lower leg 07/01/2013 023 Type II or unspecified type diabetes mellitus with ophthalmic manifestations, not stated as uncontrolled(250.50) 04/19/2012 07/18/2014 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 Gomez Routine gynecological examination 10/23/2010 05/31/2012 Overview: Dr. 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 07/04/2010 09/19/2022 Blood in stool 09/23/2007 09/19/2022 Special screening for malignant neoplasms, colon 06/16/2007 05/31/2012 Disturbance of skin sensation 06/29/2003 documented as of this encounter (statuses as of 11/19/2022) [facility] of Past illness Narrative* Problem Noted Date Resolved Date Proliferative diabetic retinopathy 06/10/2019 09/19/2022 Infection of prepatellar bursa 01/05/2019 0 09/19/2022 Angina pectoris 02/02/2018 09/19/2022 Diabetic neuropathy 07/03/2017 09/19/2022 Osteoarthrosis 07/03/2017 09/19/2022 Stented coronary artery 07/03/2017 09/20/19 23 Pain in joint, pelvic region and thigh 4 09/19/2022 Pain in joint, lower leg 07/01/2013 023 Type II or unspecified type diabetes mellitus with ophthalmic manifestations, not stated as uncontrolled(250.50) 04/19/2012 07/18/2014 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 Gomez Routine gynecological examination 10/23/2010 05/31/2012 Overview: Dr. 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 07/04/2010 09/19/2022 Blood in stool 09/23/2007 09/19/2022 Special screening for malignant neoplasms, colon 06/16/2007 05/31/2012 Disturbance of skin sensation 06/29/2003 documented as of this encounter (statuses as of 11/29/2022) [facility] of [facility] illness Narrative* Problem Noted Date Resolved Date Proliferative diabetic retinopathy 06/10/2019 09/19/2022 Infection of prepatellar bursa 01/05/2019 0 09/19/2022 Angina pectoris 02/02/2018 09/19/2022 Diabetic neuropathy 07/03/2017 09/19/2022 Osteoarthrosis 07/03/2017 09/19/2022 Stented coronary artery 07/03/2017 09/20/19 23 Pain in joint, pelvic region and thigh 4 09/19/2022 Pain in joint, lower leg 07/01/2013 023 Type II or unspecified type diabetes mellitus with ophthalmic manifestations, not stated as uncontrolled(250.50) 04/19/2012 07/18/2014 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 Gomez Routine gynecological examination 10/23/2010 05/31/2012 Overview: Dr. 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 07/04/2010 09/19/2022 Blood in stool 09/23/2007 09/19/2022 Special screening for malignant neoplasms, colon 06/16/2007 05/31/2012 Disturbance of skin sensation 06/29/2003 documented as of this encounter (statuses as of 12/04/2022) [facility]01-10-2020 History of Past illness Narrative* Problem Noted Date Diagnosed Date Resolved Date Proliferative diabetic retinopathy 06/10/2019 09/19/2022 Infection of prepatellar bursa 01/05/2019 09/19/2022 Angina pectoris 02/02/2018 09/19/2022 Diabetic neuropathy 07/03/2017 09/20/19 23 Osteoarthrosis 07/03/2017 09/19/2022 Stented coronary artery 07/03/201708/31 Pain in joint, pelvic region and thigh 10/19/2013 09/19/2022 Pain in joint, lower leg 07/01/2013 Type II or unspecified type diabetes mellitus with ophthalmic manifestations, 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 Gomez Routine gynecological examination 10/23/2010 05/31/2012 Overview: Dr. 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 07/04/2010 09/19/2022 Blood in stool 09/23/2007 09/19/2022 Special screening for malign ant neoplasms, colon 06/16/2007 05/31/2012 Disturbance of skin sensation 06/29/2003 09/19/2022 documented as of this encounter (statuses as of 01/21/2023) [facility]2020 History of Past illness Narrative* Problem Noted Date Diagnosed Date Resolved Date Proliferative diabetic retinopathy 06/10/2019 09/19/2022 Infection of prepatellar bursa 01/05/2019 09/19/2022 Angina pectoris 02/02/2018 09/19/2022 Diabetic neuropathy 07/03/2017 09/20/19 23 Osteoarthrosis 07/03/2017 09/19/2022 Stented coronary artery 07/03/201708/31 Pain in joint, pelvic region and thigh 10/19/2013 09/19/2022 Pain in joint, lower leg 07/01/2013 Type II or unspecified type diabetes mellitus with ophthalmic manifestations, 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 Gomez Routine gynecological examination 10/23/2010 05/31/2012 Overview: Dr. 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 07/04/2010 09/19/2022 Blood in stool 09/23/2007 09/19/2022 Special screening for malign ant neoplasms, colon 06/16/2007 05/31/2012 Disturbance of skin sensation 06/29/2003 09/19/2022 documented as of this encounter (statuses as of 01/21/2023) [facility]2020 History of Past illness Narrative* Problem Noted Date Diagnosed Date Resolved Date Proliferative diabetic retinopathy 06/10/2019 09/19/2022 Infection of prepatellar bursa 01/05/2019 09/19/2022 Angina pectoris 02/02/2018 09/19/2022 Diabetic neuropathy 07/03/2017 09/20/19 23 Osteoarthrosis 07/03/2017 09/19/2022 Stented coronary artery 07/03/201708/31 Pain in joint, pelvic region and thigh 10/19/2013 09/19/2022 Pain in joint, lower leg 07/01/2013 Type II or unspecified type diabetes mellitus with ophthalmic manifestations, 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 Gomez Routine gynecological examination 10/23/2010 05/31/2012 Overview: Dr. 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 07/04/2010 09/19/2022 Blood in stool 09/23/2007 09/19/2022 Special screening for malign ant neoplasms, colon 06/16/2007 05/31/2012 Disturbance of skin sensation 06/29/2003 09/19/2022 documented as of this encounter (statuses as of 02/13/2023) [facility]-10[facility]2020 History of Past illness Narrative* Problem Noted Date Diagnosed Date Resolved Date Proliferative diabetic retinopathy 06/10/2019 09/19/2022 Infection of prepatellar bursa 01/05/2019 09/19/2022 Angina pectoris 02/02/2018 09/19/2022 Diabetic neuropathy 07/03/2017 09/20/19 23 Osteoarthrosis 07/03/2017 09/19/2022 Stented coronary artery 07/03/201708/31 Pain in joint, pelvic region and thigh 10/19/2013 09/19/2022 Pain in joint, lower leg 07/01/2013 Type II or unspecified type diabetes mellitus with ophthalmic manifestations, 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 Gomez Routine gynecological examination 10/23/2010 05/31/2012 Overview: Dr. 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 07/04/2010 09/19/2022 Blood in stool 09/23/2007 09/19/2022 Special screening for malign ant neoplasms, colon 06/16/2007 05/31/2012 Disturbance of skin sensation 06/29/2003 09/19/2022 documented as of this encounter (statuses as of 02/20/2023) [facility]01-10[facility]2020 History of Past illness Narrative* Problem Noted Date Diagnosed Date Resolved Date Proliferative diabetic retinopathy 06/10/2019 09/19/2022 Infection of prepatellar bursa 01/05/2019 09/19/2022 Angina pectoris 02/02/2018 09/19/2022 Diabetic neuropathy 07/03/2017 09/20/19 23 Osteoarthrosis 07/03/2017 09/19/2022 Stented coronary artery 07/03/201708/31 Pain in joint, pelvic region and thigh 10/19/2013 09/19/2022 Pain in joint, lower leg 07/01/2013 Type II or unspecified type diabetes mellitus with ophthalmic manifestations, 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 Gomez Routine gynecological examination 10/23/2010 05/31/2012 Overview: Dr. 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 07/04/2010 09/19/2022 Blood in stool 09/23/2007 09/19/2022 Special screening for malign ant neoplasms, colon 06/16/2007 05/31/2012 Disturbance of skin sensation 06/29/2003 09/19/2022 documented as of this encounter (statuses as of 03/27/2023) [facility]2020 History of Past illness Narrative* Problem Noted Date Diagnosed Date Resolved Date Proliferative diabetic retinopathy 06/10/2019 09/19/2022 Infection of prepatellar bursa 01/05/2019 09/19/2022 Angina pectoris 02/02/2018 09/19/2022 Diabetic neuropathy 07/03/2017 09/20/19 Osteoarthrosis 07/03/2017 09/19/2022 Stented coronary artery 07/03/201708/31 Pain in joint, pelvic region and thigh 10/19/2013 09/19/2022 Pain in joint, lower leg 07/01/2013 Type II or unspecified type diabetes mellitus with ophthalmic manifestations, 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 Gomez Routine gynecological examination 10/23/2010 05/31/2012 Overview: Dr. 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 07/04/2010 09/19/2022 Blood in stool 09/23/2007 09/19/2022 Special screening for malign ant neoplasms, colon 06/16/2007 05/31/2012 Disturbance of skin sensation 06/29/2003 09/19/2022 documented as of this encounter (statuses as of 04/05/2023) [facility]2020 History of Past illness Narrative* Problem Noted Date Diagnosed Date Resolved Date Proliferative diabetic retinopathy 06/10/2019 09/19/2022 Infection of prepatellar bursa 01/05/2019 09/19/2022 Angina pectoris 02/02/2018 09/19/2022 Diabetic neuropathy 07/03/2017 09/20/19 23 Osteoarthrosis 07/03/2017 09/19/2022 Stented coronary artery 07/03/201708/31 Pain in joint, pelvic region and thigh 10/19/2013 09/19/2022 Pain in joint, lower leg 07/01/2013 Type II or unspecified type diabetes mellitus with ophthalmic manifestations, 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 Gomez Routine gynecological examination 10/23/2010 05/31/2012 Overview: Dr. 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 07/04/2010 09/19/2022 Blood in stool 09/23/2007 09/19/2022 Special screening for malign ant neoplasms, colon 06/16/2007 05/31/2012 Disturbance of skin sensation 06/29/2003 09/19/2022 documented as of this encounter (statuses as of 04/05/2023) [facility]2020 History of Past illness Narrative* Problem Noted Date Diagnosed Date Resolved Date Proliferative diabetic retinopathy 06/10/2019 09/19/2022 Infection of prepatellar bursa 01/05/2019 09/19/2022 Angina pectoris 02/02/2018 09/19/2022 Diabetic neuropathy 07/03/2017 09/20/19 23 Osteoarthrosis 07/03/2017 09/19/2022 Stented coronary artery 07/03/201708/31 Pain in joint, pelvic region and thigh 10/19/2013 09/19/2022 Pain in joint, lower leg 07/01/2013 Type II or unspecified type diabetes mellitus with ophthalmic manifestations, 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 Gomez Routine gynecological examination 10/23/2010 05/31/2012 Overview: Dr. 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 07/04/2010 09/19/2022 Blood in stool 09/23/2007 09/19/2022 Special screening for malign ant neoplasms, colon 06/16/2007 05/31/2012 Disturbance of skin sensation 06/29/2003 09/19/2022 documented as of this encounter (statuses as of 04/05/2023) [facility]-10[facility]2020 History of Past illness Narrative* Problem Noted Date Diagnosed Date Resolved Date Proliferative diabetic retinopathy 06/10/2019 09/19/2022 Infection of prepatellar bursa 01/05/2019 09/19/2022 Angina pectoris 02/02/2018 09/19/2022 Diabetic neuropathy 07/03/2017 09/20/19 23 Osteoarthrosis 07/03/2017 09/19/2022 Stented coronary artery 07/03/201708/31 Pain in joint, pelvic region and thigh 10/19/2013 09/19/2022 Pain in joint, lower leg 07/01/2013 Type II or unspecified type diabetes mellitus with ophthalmic manifestations, 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 Gomez Routine gynecological examination 10/23/2010 05/31/2012 Overview: Dr. 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 07/04/2010 09/19/2022 Blood in stool 09/23/2007 09/19/2022 Special screening for malign ant neoplasms, colon 06/16/2007 05/31/2012 Disturbance of skin sensation 06/29/2003 09/19/2022 documented as of this encounter (statuses as of 07/13/2023) [facility]01-10[facility]2020 History of Past illness Narrative* Problem Noted Date Diagnosed Date Resolved Date Proliferative diabetic retinopathy 06/10/2019 09/19/2022 Infection of prepatellar bursa 01/05/2019 09/19/2022 Angina pectoris 02/02/2018 09/19/2022 Diabetic neuropathy 07/03/2017 09/20/19 23 Osteoarthrosis 07/03/2017 09/19/2022 Stented coronary artery 07/03/201708/31 Pain in joint, pelvic region and thigh 10/19/2013 09/19/2022 Pain in joint, lower leg 07/01/2013 Type II or unspecified type diabetes mellitus with ophthalmic manifestations, 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 Gomez Routine gynecological examination 10/23/2010 05/31/2012 Overview: Dr. 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 07/04/2010 09/19/2022 Blood in stool 09/23/2007 09/19/2022 Special screening for malign ant neoplasms, colon 06/16/2007 05/31/2012 Disturbance of skin sensation 06/29/2003 09/19/2022 documented as of this encounter (statuses as of 08/03/2023) [facility]2020 History of Past illness Narrative* Problem Noted Date Diagnosed Date Resolved Date Proliferative diabetic retinopathy 06/10/2019 09/19/2022 Infection of prepatellar bursa 01/05/2019 09/19/2022 Angina pectoris 02/02/2018 09/19/2022 Diabetic neuropathy 07/03/2017 09/20/19 23 Osteoarthrosis 07/03/2017 09/19/2022 Stented coronary artery 07/03/201708/31 Pain in joint, pelvic region and thigh 10/19/2013 09/19/2022 Pain in joint, lower leg 07/01/2013 Type II or unspecified type diabetes mellitus with ophthalmic manifestations, 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 Gomez Routine gynecological examination 10/23/2010 05/31/2012 Overview: Dr. 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 07/04/2010 09/19/2022 Blood in stool 09/23/2007 09/19/2022 Special screening for malign ant neoplasms, colon 06/16/2007 05/31/2012 Disturbance of skin sensation 06/29/2003 09/19/2022 documented as of this encounter (statuses as of 08/13/2023) [facility]2020 History of Past illness Narrative* Problem Noted Date Diagnosed Date Resolved Date Proliferative diabetic retinopathy 06/10/2019 09/19/2022 Infection of prepatellar bursa 01/05/2019 09/19/2022 Angina pectoris 02/02/2018 09/19/2022 Diabetic neuropathy 07/03/2017 09/20/19 23 Osteoarthrosis 07/03/2017 09/19/2022 Stented coronary artery 07/03/201708/31 Pain in joint, pelvic region and thigh 10/19/2013 09/19/2022 Pain in joint, lower leg 07/01/2013 Type II or unspecified type diabetes mellitus with ophthalmic manifestations, 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 Gomez Routine gynecological examination 10/23/2010 05/31/2012 Overview: Dr. 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 07/04/2010 09/19/2022 Blood in stool 09/23/2007 09/19/2022 Special screening for malign ant neoplasms, colon 06/16/2007 05/31/2012 Disturbance of skin sensation 06/29/2003 09/19/2022 documented as of this encounter (statuses as of 09/04/2023) [facility] Miscellaneous Notes* Telephone Encounter - Radha Butler Ma - 05/04/2015 3:47 PM EST Patient has been identified by name and date of : Yes RX INSTRUCTIONS: Pharmacy initiated this request. No need to notify patient. Patient's last visit with PCP 07/03/14 Last refill was 04/04/15 with 30 and 0 refills Follow up appt: none I sent a [facility] message for patient to schedule follow up appointment. 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 Gomez Routine gynecological examination 10/23/2010 05/31/2012 Overview: Dr. 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 Gomez Routine gynecological examination 10/23/2010 05/31/2012 Overview: Dr. 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 Gomez Routine gynecological examination 10/23/2010 05/31/2012 Overview: Dr. 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 Gomez Routine gynecological examination 10/23/2010 05/31/2012 Overview: Dr. 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 Gomze Routine gynecological examination 10/23/2010 05/31/2012 Overview: Dr. 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 Gomez Routine gynecological examination 10/23/2010 05/31/2012 Overview: Dr. 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 Gomez Routine gynecological examination 10/23/2010 05/31/2012 Overview: Dr. 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 Gomez Routine gynecological examination 10/23/2010 05/31/2012 Overview: Dr. 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 Gomez Routine gynecological examination 10/23/2010 05/31/2012 Overview: Dr. 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 Gomez Routine gynecological examination 10/23/2010 05/31/2012 Overview: Dr. 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 Gomez Routine gynecological examination 10/23/2010 05/31/2012 Overview: Dr. 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 Gomez Routine gynecological examination 10/23/2010 05/31/2012 Overview: Dr. 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 Goemz Routine gynecological examination 10/23/2010 05/31/2012 Overview: Dr. 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 Gomez Routine gynecological examination 10/23/2010 05/31/2012 Overview: Dr. 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 Gomez Routine gynecological examination 10/23/2010 05/31/2012 Overview: Dr. 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 Gomez Routine gynecological examination 10/23/2010 05/31/2012 Overview: Dr. 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 Gomez Routine gynecological examination 10/23/2010 05/31/2012 Overview: Dr. 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 Gomez Routine gynecological examination 10/23/2010 05/31/2012 Overview: Dr. 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 Gomez Routine gynecological examination 10/23/2010 05/31/2012 Overview: Dr. 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 Gomez Routine gynecological examination 10/23/2010 05/31/2012 Overview: Dr. 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 Gomez Routine gynecological examination 10/23/2010 05/31/2012 Overview: Dr. 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 Gomez Routine gynecological examination 10/23/2010 05/31/2012 Overview: Dr. 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 Gomez Routine gynecological examination 10/23/2010 05/31/2012 Overview: Dr. 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 Gomez Routine gynecological examination 10/23/2010 05/31/2012 Overview: Dr. 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 Gomez Routine gynecological examination 10/23/2010 05/31/2012 Overview: Dr. 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 Gomez Routine gynecological examination 10/23/2010 05/31/2012 Overview: Dr. Winslow Proliferative diabetic retinopathy(362.02) 08/3007/18/2014 Special screening for malignant neoplasms, colon 06/16/2007 05/31/2012 documented as of this encounter (statuses as of 09/11/2022) [facility] Diagnosis 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)- Primary Type I (juvenile type) diabetes mellitus with neurological manifestations, not stated as uncontrolled Special screening examination for viral disease Special screening examination for unspecified viral disease Albuminuria Proteinuria Coronary artery disease of [place] heart with stable angina pectoris, unspecified vessel or lesion type (HCC) Diabetic polyneuropathy associated with type 1 diabetes mellitus (HCC) Microalbuminuria Proteinuria DDD (degenerative disc disease), lumbar Degeneration of lumbar or lumbosacral intervertebral disc Chronic right shoulder pain Pain in joint, shoulder region Renal cyst Unspecified congenital cystic kidney disease Obstructive sleep apnea Obstructive sleep apnea (adult) (pediatric) [facility] Proteinuria, unspecified type- Primary Microscopic hemat[facility] Diagnosis Lump of skin- Primary Localized superficial swelling, mass, or lump [facility] Diagnosis Other diabetic neurological complication associated with type 2 diabetes mellitus (HCC)- Primary Tailor's bunion of both feet Diminished pulses in lower extremity Other symptoms involving cardiovascular system Onychomycosis Dermatophytosis of nail Pain in toe of left foot Pain in limb Pain in toe of right foot Pain in limb [facility] Diagnosis Renal cyst Unspecified congenital cystic kidney disease [facility] Diagnosis Proteinuria, unspecified type- Primary [facility] Diagnosis 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, bilateral (HCC)- Primary Pseudophakia Lens replaced by other means Punctate keratitis, bilateral PCO (posterior capsular opacification), right After-cataract, unspecified [facility] Diagnosis Other diabetic neurological complication associated with type 2 diabetes mellitus (HCC)- Primary PAD (peripheral artery disease) (HCC) Peripheral vascular disease, unspecified [facility] this encounter [facility]* Diagnosis Acute shoulder bursitis, right- Primary Lump of skin Localized superficial swelling, mass, or lump Mass of joint of right shoulder [facility] this encounter [facility]* Diagnosis 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)- Primary Type I (juvenile type) diabetes mellitus with neurological manifestations, not stated as uncontrolled Depression, unspecified depression type Other diabetic neurological complication associated with type 2 diabetes mellitus (HCC) Hyperlipidemia, unspecified hyperlipidemia type Hypertension, unspecified type Coronary artery disease involving [place] heart without angina pectoris, unspecified vessel or lesion type Medication monitoring encounter Encounter for therapeutic drug monitoring DDD (degenerative disc disease), lumbar Degeneration of lumbar or lumbosacral intervertebral disc documented in this encounter [facility]* Diagnosis Medication monitoring encounter- Primary Encounter for therapeutic drug monitoring documented in this encounter [facility]* Diagnosis Gallbladder mass- Primary Other specified disorder of gallbladder [facility] Diagnosis 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, bilateral (HCC)- Primary Punctate keratitis, bilateral PCO (posterior capsular opacification), right After-cataract, unspecified Pseudophakia Lens replaced by other means [facility] Diagnosis Calculus of gallbladder without cholecystitis without obstruction Calculus of gallbladder without mention of cholecystitis or obstruction documented in this encounter [facility]* Diagnosis Lump of skin Localized superficial swelling, mass, or lump Acute shoulder bursitis, right Mass of joint of right shoulder documented in this encounter [facility]* Diagnosis Peripheral vascular disease (HCC)- Primary Peripheral vascular disease, unspecified Other diabetic neurological complication associated with type 2 diabetes mellitus (HCC) PAD (peripheral artery disease) (HCC) Peripheral vascular disease, unspecified Screening for nephropathy [facility] Diagnosis Onset Date Resolution Status Diabetic retinopathy ass[facility]ia [place] with type 1 diabetes mellitus acute Polyneuropathy due to type 1 diabetes mellitus chronic Hypothyroidism chronic Polyneuropathy due to type 1 diabetes mellitus [facility] Work Phone: Evaluation note* Diagnosis Ventral hernia without obstruction or gangrene- Primary Ventral hernia, unspecified, without mention of obstruction or gangrene [facility] Diagnosis Onset Date Resolution Status Hypothyroidism chronic Polyneuropathy due to type 1 diabetes mellitus chronic 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[place] coronary artery without angina pectoris chronic Diabetes mellitus chronic Essential hypertension chron ic Mixed hyperlipidemia chronic Nicotine dependence chronic Peripheral arterial disease chronic Peripheral arterial disease chronic [facility] Work Phone: Evaluation note* Diagnosis 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)- Primary Type I (juvenile type) diabetes mellitus with neurological manifestations, not stated as uncontrolled Stage 3 chronic kidney disease, unspecified whether stage 3a or 3b CKD (HCC) Hypothyroidism, unspecified type [facility] Diagnosis Incisional hernia, without obstruction or gangrene- Primary Incisional hernia without mention of obstruction or gangrene documented in this encounter [facility]* Diagnosis DDD (degenerative disc disease), lumbar Degeneration of lumbar or lumbosacral intervertebral disc [facility] Diagnosis Type 1 diabetes mellitus with proliferative retinopathy, macular edema presence unspecified, unspecified laterality, unspecified proliferative retinopathy type (HCC) Insomnia, unspecified type Hyperlipidemia, unspecified hyperlipidemia type Primary hypertension Unspecified essential hypertension Coronary artery disease involving [place] heart without angina pectoris, unspecified vessel or lesion type Chronic obstructive pulmonary disease, unspecified COPD type (HCC) Obstructive sleep apnea Obstructive sleep apnea (adult) (pediatric) Gastroesophageal reflux disease without esophagitis Esophageal reflux Stage 3 chronic kidney disease, unspecified whether stage 3a or 3b CKD (HCC) Hypothyroidism, unspecified type Generalized anxiety disorder Screening breast examination Breast screening, unspecified Family history of colon cancer Family history of malignant neoplasm of gastrointestinal tract documented in this encounter [facility]* Diagnosis Onset Date Resolution Status Hypothyroidism chronic Polyneuropathy due to type 1 diabetes mellitus chronic 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[place] coronary artery without angina pectoris chronic Essential hypertension chron ic Mixed hyperlipidemia chronic Nicotine dependence chronic Peripheral arterial disease chronic Peripheral arterial disease chronic Lumbar degenerative disc disease acute Spondylosis of lumbar region without myelopathy or radiculopathy acute Essential hypertension chron ic Hypothyroidism chronic Polyneuropathy due to type 1 diabetes mellitus chronic Type 1 diabetes mellitus with hyperglycemia chronic [facility] Work Phone: Evaluation note* Diagnosis Depression Depressive disorder, not elsewhere classified [facility] Diagnosis DDD (degenerative disc disease), lumbar Degeneration of lumbar or lumbosacral intervertebral disc documented in this encounter [facility]* Diagnosis 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)- Primary Type I (juvenile type) diabetes mellitus with neurological manifestations, not stated as uncontrolled Tobacco use Tobacco use disorder documented in this encounter [facility] note* Diagnosis Onset Date Resolution Status Lumbar degenerative disc disease acute Spondylosis of lumbar region without myelopathy or radiculopathy acute Essential hypertension chron ic Hypothyroidism chronic Polyneuropathy due to type 1 diabetes mellitus chronic Type 1 diabetes mellitus with hyperglycemia chronic Peripheral arterial disease chronic Lumbar degenerative disc disease acute Spondylosis of lumbar region without myelopathy or radiculopathy acute Atherosclerosis of both lowe r extremities with intermittent claudication chronic [facility] Work Phone: Evaluation note* Diagnosis Onset Date Resolution Status Essential hypertension chron ic Hypothyroidism chronic Polyneuropathy due to type 1 diabetes mellitus chronic Type 1 diabetes mellitus with hyperglycemia chronic Peripheral arterial disease chronic Lumbar degenerative disc disease acute Spondylosis of lumbar region without myelopathy or radiculopathy acute Atherosclerosis of both lowe r extremities with intermittent claudication chronic Encounter for screening for malignant neoplasm of lung acute Tobacco use disorder, continuous acute 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[place] coronary artery without angina pectoris chronic Essential hypertension chron ic Mixed hyperlipidemia chronic Nicotine dependence chronic Peripheral arterial disease chronic [facility] Work Phone: Evaluation note* Diagnosis DDD (degenerative disc disease), lumbar Degeneration of lumbar or lumbosacral intervertebral disc Type 1 diabetes mellitus with proliferative retinopathy, macular edema presence unspecified, unspecified laterality, unspecified proliferative retinopathy type (HCC) Coronary artery disease involving [place] heart without angina pectoris, unspecified vessel or lesion type Primary hypertension Unspecified essential hypertension Hyperlipidemia, unspecified hyperlipidemia type Obstructive sleep apnea Obstructive sleep apnea (adult) (pediatric) Chronic obstructive pulmonary disease, unspecified COPD type (HCC) Gastroesophageal reflux disease without esophagitis Esophageal reflux Stage 3 chronic kidney disease, unspecified whether stage 3a or 3b CKD (HCC) Hypothyroidism, unspecified type Generalized anxiety disorder Depression, unspecified depression type Medication monitoring encounter Encounter for therapeutic drug monitoring documented [facility] this [facility]* Diagnosis Onset Date Resolution Status Atherosclerosis of both lowe r extremities with intermittent claudication chronic Encounter for screening for malignant neoplasm of lung acute Tobacco use disorder, continuous acute 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[place] coronary artery without angina pectoris chronic Essential hypertension chron ic Mixed hyperlipidemia chronic Nicotine dependence chronic Peripheral arterial disease chronic Nicotine dependence chronic Overweight chronic Type 1 diabetes mellitus with hyperglycemia [facility] Work Phone: Evaluation note* Diagnosis Gallbladder mass Other specified disorder of gallbladder documented in this encounter [facility] note* Diagnosis Incisional hernia, without obstruction or gangrene Incisional hernia without mention of obstruction or gangrene documented in this encounter [facility] note* Diagnosis Screening breast examination Breast screening, unspecified documented in this encounter [facility] note* Diagnosis Onset Date Resolution Status Overweight chronic Tobacco use disorder, continuous chronic Type 1 diabetes mellitus with hyperglycemia [facility] Work Phone: Evaluation note* Diagnosis 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, bilateral (HCC)- Primary Punctate keratitis, bilateral PCO (posterior capsular opacification), right After-cataract, unspecified Pseudophakia Lens replaced by other means documented in this encounter [facility] note* Diagnosis 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, bilateral (HCC)- Primary documented in this encounter [facility] note* Diagnosis 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, bilateral (HCC) [facility] this [facility]* Diagnosis PCO (posterior capsular opacification), right- Primary After-cataract, unspecified Pseudophakia Lens replaced by other means 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, bilateral (HCC) Punctate keratitis, bilateral [facility]* Diagnosis S/P YAG capsulotomy, right- Primary Pseudophakia Lens replaced by other means documented in this encounter [facility] note* Diagnosis 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)- Primary Type I (juvenile type) diabetes mellitus with neurological manifestations, not stated as uncontrolled Status post coronary artery stent placement Postsurgical percutaneous transluminal coronary angioplasty status Depression, unspecified depression type Primary hypertension Unspecified essential hypertension Hyperlipidemia, unspecified hyperlipidemia type Hypothyroidism, unspecified type Generalized anxiety disorder Spinal stenosis of lumbar region, unspecified whether neurogenic claudication present Family history of colon cancer Family history of malignant neoplasm of gastrointestinal tract Cellulitis of knee Cellulitis and abscess of leg, except foot documented in this encounter [facility] note* Diagnosis Encounter for screening mammogram for breast cancer documented in this encounter [facility] note* Diagnosis Chronic right shoulder pain Pain in joint, shoulder region documented in this encounter [facility] note* Diagnosis Screening for lung cancer- Primary documented in this encounter [facility] note* Diagnosis 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)- Primary Type I (juvenile type) diabetes mellitus with neurological manifestations, not stated as uncontrolled Coronary artery disease involving [place] heart without angina pectoris, unspecified vessel or lesion type Primary hypertension Unspecified essential hypertension Hyperlipidemia, unspecified hyperlipidemia type Obstructive sleep apnea Obstructive sleep apnea (adult) (pediatric) Chronic obstructive pulmonary disease, unspecified COPD type (HCC) Gastroesophageal reflux disease without esophagitis Esophageal reflux Stage 3 chronic kidney disease, unspecified whether stage 3a or 3b CKD ([facility]) Hypothyroidism, unspecified type Type 1 diabetes mellitus with proliferative retinopathy, macular edema presence unspecified, unspecified laterality, unspecified proliferative retinopathy type (HCC) Depression, unspecified depression type Generalized anxiety disorder Encounter for screening mammogram for malignant neoplasm of breast Other screening mammogram Screening for lung cancer Asymptomatic postmenopausal status Hx of CABG Postsurgical aortocoronary bypass status documented in this encounter [facility] note* Diagnosis Incisional hernia, without obstruction or gangrene Incisional hernia without mention of obstruction or gangrene Type 2 diabetes mellitus with hyperglycemia, with long-term current use of insulin (HCC) Peripheral vascular disease (HCC) Peripheral vascular disease, unspecified Presence of coronary angioplasty implant and graft Postsurgical percutaneous transluminal coronary angioplasty status Chronic kidney disease, stage 1 documented in this encounter [facility] note* Diagnosis Incisional hernia, without obstruction or gangrene Incisional hernia without mention of obstruction or gangrene documented in this encounter [facility] note* Diagnosis Age-related osteoporosis without current pathological fracture- Primary Senile osteoporosis documented in this encounter [facility] note* Diagnosis Pre-operative examination- Primary Preoperative examination, unspecified 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) Type I (juvenile type) diabetes mellitus with neurological manifestations, not stated as uncontrolled Insomnia, unspecified type Coronary artery disease involving [place] heart without angina pectoris, unspecified vessel or lesion type Primary hypertension Unspecified essential hypertension Hyperlipidemia, unspecified hyperlipidemia type Bilateral carotid artery stenosis Occlusion and stenosis of carotid artery without mention of cerebral infarction Chronic obstructive pulmonary disease, unspecified COPD type (HCC) Obstructive sleep apnea Obstructive sleep apnea (adult) (pediatric) Former smoker Personal history of tobacco use, presenting hazards to health Gastroesophageal reflux disease without esophagitis Esophageal reflux Stage 3 chronic kidney disease, unspecified whether stage 3a or 3b CKD ([facility]) Hypothyroidism, unspecified type Osteoporosis, unspecified osteoporosis type, unspecified pathological fracture presence Depression, unspecified depression type Generalized anxiety disorder VHD (valvular heart disease) Endocarditis, valve unspecified, unspecified cause Incisional hernia, without obstruction or gangrene Incisional hernia without mention of obstruction or gangrene Type 2 diabetes mellitus with hyperglycemia, with long-term current use of insulin ([facility]) Peripheral vascular disease Peripheral vascular disease, unspecified Presence of coronary angioplasty implant and graft Postsurgical percutaneous transluminal coronary angioplasty status Chronic kidney disease, stage 1 * Assessment & Plan Note - Angi Martin APRN.CNP - 10/13/2024 11:15 AM EDT Associated Problem(s): VHD (valvular heart disease) Assessment: echo 01/12/2024 in C/E, AVR 1-2+, Mild stenosis of the aortic valve. AV mean gradient is9 mmHg. AV area by continuity VTI is 1.9 cm2. Following cardiology * Assessment & Plan Note - Angi Martin APRN.CNP - 10/13/2024 11:12 AM EDT Associated Problem(s): Generalized anxiety disorder Assessment: stable on rx per pt * Assessment & Plan Note - Angi Martin APRN.CNP - 10/13/2024 11:12 AM EDT Associated Problem(s): Depression Assessment: stable on rx per pt * Assessment & Plan Note - Angi Martin APRN.CNP - 10/13/2024 11:11 AM EDT Associated Problem(s): Osteoporosis Assessment: pending to receive Reclast * Assessment & Plan Note - Angi Martin APRN.CNP - 10/13/2024 11:11 AM EDT Associated Problem(s): Hypothyroid Assessment: stable on rx * Assessment & Plan Note - Angi Martin APRN.CNP - 10/13/2024 11:11 AM EDT Associated Problem(s): Stage 3 chronic kidney disease (HCC) Assessment: hx MELINDA, following CABG that required dialysis short term Creatinine Date Value Ref Range Status 01/20/2023 1.08 (H) 0.58 - 0.96 mg/dL Final 06/13/2022 0.90 0.58 - 0.96 mg/dL Final 01/27/2022 1.03 (H) 0.58 - 0.96 mg/dL Final 06/29/2014 0.94 0.70 - 1.40 mg/dL Final * Assessment & Plan Note - Angi Martin APRN.CNP - 10/13/2024 11:11 AM EDT Associated Problem(s): Gastroesophageal reflux disease without esophagitis Assessment: controlled on rx * Assessment & Plan Note - Angi Martin APRN.CNP - 10/13/2024 11:10 AM EDT Associated Problem(s): Former smoker Assessment: 1ppd/50 years * Assessment & Plan Note - Angi Martin APRN.CNP - 10/13/2024 11:10 AM EDT Associated Problem(s): Obstructive sleep apnea Assessment: non-compliant with CPAP * Assessment & Plan Note - Angi Martin APRN.CNP - 10/13/2024 11:10 AM EDT Associated Problem(s): Chronic obstructive lung disease (HCC) Assessment: controlled with rx as needed, no spirometry on file, lungs CTA, pulse ox 97% on RA, recent low dose lung screening CT below View External Imaging - CT Scan [ID [id number]] * Assessment & Plan Note - Angi Martin APRN.CNP - 10/13/2024 11:08 AM EDT Associated Problem(s): Bilateral carotid artery stenosis Assessment: 12/2023 Carotid US in C/E revealed <50% bilaterally Report on 01/05/2024 2:39 PM EDT: Vascular US carotid artery duplex bilateral * Assessment & Plan Note - Angi Martin APRN.CNP - 10/13/2024 11:07 AM EDT Associated Problem(s): Hyperlipidemia Assessment: c/w statin * Assessment & Plan Note - Angi Martin APRN.CNP - 10/13/2024 11:07 AM EDT Associated Problem(s): HTN (hypertension) Assessment: controlled on rx Last 14 BP Last 14 Encounter BP Readings: Date: BP: 10/13/2024 126/56 09/28/2024 126/63 09/19/2024 116/54 08/17/2024 135/66 08/03/2024 104/50 12/14/2023 132/52 01/20/2023 110/60 09/19/2022 122/58 09/02/2022 128/58 07/14/2022 122/70 04/29/2022 153/81[pt stated she did not take meds yet today[ 03/07/2022 124/60 02/27/2022 130/62 01/27/2022 120/48 * Assessment & Plan Note - Angi Martin APRN.FELA - 10/13/2024 11:07 AM EDT Associated Problem(s): CAD (coronary artery disease) Assessment: s/p stent 1995, 2004 and CABG 2023, following WHG, last OV below, c/w statin, ASA, BB. Denies CP, palpitations, sob, new or worsening cardiac symptoms Scan on 10/13/2024 10:27 AM by Provider, External, PA-C: Consultation - Cardiology * Assessment & Plan Note - Angi Martin APRN.CNP - 10/13/2024 11:05 AM EDT Associated Problem(s): Insomnia Assessment: nightly rx * Assessment & Plan Note - Angi Martin APRN.CNP - 10/13/2024 11:05 AM EDT Associated Problem(s): Diabetes mellitus type 1 with neurological manifestations (HCC) Assessment: IDDM, pump, following endo, A1c 6.8 in office POC during last OV with endo below: Scan on 09/12/2024 1:35 PM by Provider, External, PA-C: Consultation - Endocrinology documented in this encounter [facility] note* Diagnosis Incisional hernia, without obstruction or gangrene- Primary Incisional hernia without mention of obstruction or gangrene Type 2 diabetes mellitus with hyperglycemia, with long-term current use of insulin (HCC) Peripheral vascular disease Peripheral vascular disease, unspecified Presence of coronary angioplasty implant and graft Postsurgical percutaneous transluminal coronary angioplasty status Chronic kidney disease, stage 1 Pre-operative examination- Primary Preoperative examination, unspecified 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) Type I (juvenile type) diabetes mellitus with neurological manifestations, not stated as uncontrolled Insomnia, unspecified type Coronary artery disease involving [place] heart without angina pectoris, unspecified vessel or lesion type Primary hypertension Unspecified essential hypertension Hyperlipidemia, unspecified hyperlipidemia type Bilateral carotid artery stenosis Occlusion and stenosis of carotid artery without mention of cerebral infarction Chronic obstructive pulmonary disease, unspecified COPD type (HCC) Obstructive sleep apnea Obstructive sleep apnea (adult) (pediatric) Former smoker Personal history of tobacco use, presenting hazards to health Gastroesophageal reflux disease without esophagitis Esophageal reflux Stage 3 chronic kidney disease, unspecified whether stage 3a or 3b CKD (HCC) Hypothyroidism, unspecified type Osteoporosis, unspecified osteoporosis type, unspecified pathological fracture presence Depression, unspecified depression type Generalized anxiety disorder VHD (valvular heart disease) Endocarditis, valve unspecified, unspecified cause Hyperkalemia Hyperpotassemia Anemia, unspecified type Incisional hernia, without obstruction or gangrene Incisional hernia without mention of obstruction or gangrene Type 2 diabetes mellitus with hyperglycemia, with long-term current use of insulin (HCC) Peripheral vascular disease Peripheral vascular disease, unspecified Presence of coronary angioplasty implant and graft Postsurgical percutaneous transluminal coronary angioplasty status Chronic kidney disease, stage 1 documented in this encounter [facility] note* Diagnosis Pre-operative examination- Primary Preoperative examination, unspecified 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) Type I (juvenile type) diabetes mellitus with neurological manifestations, not stated as uncontrolled Insomnia, unspecified type Coronary artery disease involving [place] heart without angina pectoris, unspecified vessel or lesion type Primary hypertension Unspecified essential hypertension Hyperlipidemia, unspecified hyperlipidemia type Bilateral carotid artery stenosis Occlusion and stenosis of carotid artery without mention of cerebral infarction Chronic obstructive pulmonary disease, unspecified COPD type (HCC) Obstructive sleep apnea Obstructive sleep apnea (adult) (pediatric) Former smoker Personal history of tobacco use, presenting hazards to health Gastroesophageal reflux disease without esophagitis Esophageal reflux Stage 3 chronic kidney disease, unspecified whether stage 3a or 3b CKD (HCC) Hypothyroidism, unspecified type Osteoporosis, unspecified osteoporosis type, unspecified pathological fracture presence Depression, unspecified depression type Generalized anxiety disorder VHD (valvular heart disease) Endocarditis, valve unspecified, unspecified cause Hyperkalemia Hyperpotassemia Anemia, unspecified type Pre-operative examination- Primary Preoperative examination, unspecified documented in this encounter [facility] note* Diagnosis Pre-operative examination- Primary Preoperative examination, unspecified 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) Type I (juvenile type) diabetes mellitus with neurological manifestations, not stated as uncontrolled Insomnia, unspecified type Coronary artery disease involving [place] heart without angina pectoris, unspecified vessel or lesion type Primary hypertension Unspecified essential hypertension Hyperlipidemia, unspecified hyperlipidemia type Bilateral carotid artery stenosis Occlusion and stenosis of carotid artery without mention of cerebral infarction Chronic obstructive pulmonary disease, unspecified COPD type (HCC) Obstructive sleep apnea Obstructive sleep apnea (adult) (pediatric) Former smoker Personal history of tobacco use, presenting hazards to health Gastroesophageal reflux disease without esophagitis Esophageal reflux Stage 3 chronic kidney disease, unspecified whether stage 3a or 3b CKD (HCC) Hypothyroidism, unspecified type Osteoporosis, unspecified osteoporosis type, unspecified pathological fracture presence Depression, unspecified depression type Generalized anxiety disorder VHD (valvular heart disease) Endocarditis, valve unspecified, unspecified cause Hyperkalemia Hyperpotassemia Anemia, unspecified type Incisional hernia, without obstruction or gangrene- Primary Incisional hernia without mention of obstruction or gangrene documented in this encounter [facility] note* Diagnosis Pre-operative examination- Primary Preoperative examination, unspecified 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) Type I (juvenile type) diabetes mellitus with neurological manifestations, not stated as uncontrolled Insomnia, unspecified type Coronary artery disease involving [place] heart without angina pectoris, unspecified vessel or lesion type Primary hypertension Unspecified essential hypertension Hyperlipidemia, unspecified hyperlipidemia type Bilateral carotid artery stenosis Occlusion and stenosis of carotid artery without mention of cerebral infarction Chronic obstructive pulmonary disease, unspecified COPD type (HCC) Obstructive sleep apnea Obstructive sleep apnea (adult) (pediatric) Former smoker Personal history of tobacco use, presenting hazards to health Gastroesophageal reflux disease without esophagitis Esophageal reflux Stage 3 chronic kidney disease, unspecified whether stage 3a or 3b CKD (HCC) Hypothyroidism, unspecified type Osteoporosis, unspecified osteoporosis type, unspecified pathological fracture presence Depression, unspecified depression type Generalized anxiety disorder VHD (valvular heart disease) Endocarditis, valve unspecified, unspecified cause Hyperkalemia Hyperpotassemia Anemia, unspecified type 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, bilateral (HCC)- Primary Pseudophakia Lens replaced by other means Punctate keratitis, bilateral documented in this encounter [facility] note* Diagnosis Pre-operative examination- Primary Preoperative examination, unspecified 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) Type I (juvenile type) diabetes mellitus with neurological manifestations, not stated as uncontrolled Insomnia, unspecified type Coronary artery disease involving [place] heart without angina pectoris, unspecified vessel or lesion type Primary hypertension Unspecified essential hypertension Hyperlipidemia, unspecified hyperlipidemia type Bilateral carotid artery stenosis Occlusion and stenosis of carotid artery without mention of cerebral infarction Chronic obstructive pulmonary disease, unspecified COPD type (HCC) Obstructive sleep apnea Obstructive sleep apnea (adult) (pediatric) Former smoker Personal history of tobacco use, presenting hazards to health Gastroesophageal reflux disease without esophagitis Esophageal reflux Stage 3 chronic kidney disease, unspecified whether stage 3a or 3b CKD (HCC) Hypothyroidism, unspecified type Osteoporosis, unspecified osteoporosis type, unspecified pathological fracture presence Depression, unspecified depression type Generalized anxiety disorder VHD (valvular heart disease) Endocarditis, valve unspecified, unspecified cause Hyperkalemia Hyperpotassemia Anemia, unspecified type Status post coronary artery stent placement Postsurgical percutaneous transluminal coronary angioplasty status documented in this encounter [facility] for referral (narrative)* Diagnostic Procedure Only (Routine) - Authorized Specialty Diagnoses / Procedures Referred By Yesika t Referred To Contact US IMAGING Diagnoses Renal cyst Procedures US KIDNEY/BLADDER US RETROPERITONEAL REAL TIME W/IMAGE COMPLETE Sandy Braswell MD [address] [place] [address] Us Imaging Referral ID Status Reason Start Date Expiration Date Visits Requested Visits Authorized [id number] Authorized Auto-Generat ed Referral 01/27/2022 02/26/2023 1 1 * Diagnostic Procedure Only (Routine) - Closed Specialty Diagnoses / Procedures Referred By Yesika t Referred To Contact XR IMAGING Diagnoses Chronic right shoulder pain Procedures XR SHOULDER GENERAL 3V OR MORE AP/TRUE AP/OTHER RIGHT RADEX SHOULDER COMPLETE MINIMUM 2 VIEWS Sandy Braswell MD [address] [place] [address] Xr Imaging Referral ID Status Reason Start Date Expiration Date V isits Requested Visits Authorized [id number] Closed Auto-Generate d Referral 01/27/2022 02/26/2023 1 1 * Consult, Test, Treat (Routine) - Authorized Specialty Diagnoses / Procedures Referred By Contac t Referred To Contact Pain Management Diagnoses DDD (degenerative disc disease), lumbar Procedures CONSULT TO PAIN MGT OFFICE/OUTPATIENT [facility] 60-74 [place] [address] [place] [id number] Referral ID Status Reason Start Date Expiration Date Visits Requested Visits Authorized [id number] Authorized PCP Requested Referral 01/27/2022 01/27/2023 1 1 * Consult, Test, Treat (Routine) - Authorized Specialty Diagnoses / Procedures Referred By Contac t Referred To Contact Ophthalmology Diagnoses 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) Diabetic polyneuropathy associated with type 1 diabetes mellitus (HCC) Procedures CONSULT TO OPHTHALMOLOGY OFFICE/OUTPATIENT [facility] 60-74 MINUTES Sandy Braswell MD [address] [place] [address] Referral ID Status Reason Start Date Expiration Date Visits Requested Visits Authorized [id number] Authorized PCP Requested Referral 01/27/2022 01/27/2023 1 1 * Consult, Test, Treat (Routine) - Authorized Specialty Diagnoses / Procedures Referred By Contac t Referred To Contact Cardiology Diagnoses Coronary artery disease of [place] heart with stable angina pectoris, unspecified vessel or lesion type (HCC) Procedures CONSULT TO CARDIOLOGY OFFICE/OUTPATIENT [facility] 60-[place] [address] [place] [address] Referral ID Status Reason Start Date Expiration Date Visits Requested Visits Authorized [id number] Authorized PCP Requested Referral 01/27/2022 01/27/2023 1 1 [facility] for referral (narrative)* Outpatient Procedure (Routine) - Authorized Specialty Diagnoses / Procedures Referred By Yesika falcon Referred To [facility] Diagnoses Other diabetic neurological complication associated with type 2 diabetes mellitus (HCC) Diminished pulses in lower extremity Procedures PVR ANK PRESS [facility] NON-INVAS PHYSIOLOGIC STD EXTREMITY ART 2 LEVEL Albert Good [address] [place] [address] [facility] [place] [address] [place] [address] Referral ID Status Reason Start Date Expiration Date Visits Requested Visits Authorized [id number] Authorized Auto-Generat ed Referral 01/31/2022 01/31/2023 1 1 [facility] for referral (narrative)* Diagnostic Procedure Only (Routine) - Closed Specialty Diagnoses / Procedures Referred By Yesika Referred To Contact US IMAGING Diagnoses Renal cyst Procedures US KIDNEY/BLADDER US RETROPERITONEAL REAL TIME W/IMAGE COMPLETE Sandy Braswell MD [address] [place] [address] Us Imaging Referral ID Status Reason Start Date Expiration Date V isits Requested Visits Authorized [id number] Closed Auto-Generate d Referral 01/27/2022 02/26/2023 1 1 [facility] for referral (narrative)* Diagnostic Procedure Only (Routine) - Authorized Specialty Diagnoses / Procedures Referred By Yesika Referred To Contact US IMAGING Diagnoses Gallbladder mass Procedures US ABD RT UPPER QUADRANT US ABDOMINAL REAL TIME W/IMAGE LIMITED Sandy Braswell MD [address] [place] [address] Us Imaging Referral ID Status Reason Start Date Expiration Date Visits Requested Visits Authorized [id number] Authorized Auto-Generat ed Referral 01/31/2022 03/02/2023 1 1 [facility] for referral (narrative)* Diagnostic Procedure Only (Routine) - Authorized Specialty Diagnoses / Procedures Referred By Contac t Referred To Contact BR IMAGING Diagnoses Screening breast examination Procedures ABEBE SCREENING SCREENING MAMMOGRAPHY BI 2-VIEW BREAST INC Sandy Campos MD [address] [place] [address] [facility] [address] [place] [address] Referral ID Status Reason Start Date Expiration Date Visits Requested Visits Authorized [id number] Authorized Auto-Generat ed Referral 09/19/2022 10/19/2023 1 1 [facility] for referral (narrative)* Diagnostic Procedure Only (Routine) - Closed Specialty Diagnoses / Procedures Referred By Contac t Referred To Contact US IMAGING Diagnoses Gallbladder mass Procedures US ABD RT UPPER QUADRANT US ABDOMINAL REAL TIME W/IMAGE LIMITED Sandy Braswell MD [address] [place] [address] [facility] [place] [address] Referral ID Status Reason Start Date Expiration Date V isits Requested Visits Authorized [id number] Closed Auto-Generate d Referral 01/31/2022 03/02/2023 1 1 [facility] for referral (narrative)* Diagnostic Procedure Only (Routine) - Closed Specialty Diagnoses / Procedures Referred By Contac t Referred To Contact BR IMAGING Diagnoses Screening breast examination Procedures ABEBE SCREENING SCREENING MAMMOGRAPHY BI 2-[place] [address] [place] [address] [facility] [address] [place] [address] Referral ID Status Reason Start Date Expiration Date V isits Requested Visits Authorized [id number] Closed Auto-Generate d Referral 09/19/2022 10/19/2023 1 1 [facility] for referral (narrative)* Diagnostic Procedure Only (Routine) - New Request Specialty Diagnoses / Procedures Referred By Yesika falcon Referred To Contact BR IMAGING Diagnoses Encounter for screening mammogram for breast cancer Procedures ABEBE SCREENING W REDDY SCREENING DIGITAL BREAST TOMOSYNTHESIS BI SCREENING MAMMOGRAPHY BI 2-[place] [address] [place] [address] [facility] [address] [place] [address] Referral ID Status Reason Start Date Expiration Date Visits Requested Visits Authorized [id number] New Request Auto-Generat ed Referral 12/30/2023 01/28/2025 1 1 [facility] for referral (narrative)* Diagnostic Procedure Only (Routine) - Closed Specialty Diagnoses / Procedures Referred By Yesika falcon Referred To Contact XR IMAGING Diagnoses Chronic right shoulder pain Procedures XR SHOULDER GENERAL 3V OR MORE AP/TRUE AP/OTHER RIGHT RADEX SHOULDER COMPLETE MINIMUM 2 VIEWS Sandy Braswell MD [address] [place] [address] [place] [address] Referral ID Status Reason Start Date Expiration Date V isits Requested Visits Authorized [id number] Closed Auto-Generate d Referral 01/27/2022 02/26/2023 1 1 [facility] for referral (narrative)No reason for referral information [facility] Phone: Reason for visit Narrative* Diagnostic Procedure Only (Routine) - Closed Specialty Diagnoses / Procedures Referred By Yesika falcon Referred To Contact BR IMAGING Diagnoses Screening breast examination Procedures ABEBE SCREENING SCREENING MAMMOGRAPHY BI 2-[place] [address] [place] [address] [facility] [address] [employer] [place] [address] Referral ID Status Reason Start Date Expiration Date V isits Requested Visits Authorized [id number] Closed Auto-Generate d Referral 09/19/2022 10/19/2023 1 1 [facility] for visit Narrative* Diagnostic Procedure Only (Routine) - Closed Specialty Diagnoses / Procedures Referred By Contac t Referred To Contact XR IMAGING Diagnoses Chronic right shoulder pain Procedures XR SHOULDER GENERAL 3V OR MORE AP/TRUE AP/OTHER RIGHT RADEX SHOULDER COMPLETE MINIMUM 2 VIEWS Sandy Braswell MD [address] [place] [address] [place] [address] Referral ID Status Reason Start Date Expiration Date V isits Requested Visits Authorized [id number] Closed Auto-Generate d Referral 01/27/2022 02/26/2023 1 1 [facility] for visit Narrative* MRI/CT (Routine) - Closed Specialty Diagnoses / Procedures Referred By Contac t Referred To Contact CT IMAGING Diagnoses Incisional hernia, without obstruction or gangrene Procedures CT ABD/PEL WO IVCON CT ABD & PELVIS W/O CONTRAST Adriel Solis MD [address] [place] [address] Phone: tel: fax: [place] [address] Referral ID Status Reason Start Date Expiration Date V isits Requested Visits Authorized [id number] Closed Auto-Generate d Referral 08/17/2024 09/16/2025 1 1 [facility] Reason for Referral Specialty Diagnoses / Procedures Referred By Contac t Referred To Contact General Surgery Diagnoses Lump of skin Procedures CONSULT TO GENERAL SURGERY OFFICE/OUTPATIENT [facility] 60-74 MINUTES Sandy Braswell MD [address] [place] [address] Referral ID Status Reason Start Date Expiration Date Visits Requested Visits Authorized [id number] Authorized PCP Requested Referral 01/29/2022 01/29/2023 1 1 Specialty Diagnoses / Procedures Referred By Contac t Referred To Contact Nephrology Diagnoses Proteinuria, unspecified type Procedures CONSULT TO NEPHROLOGY OFFICE/OUTPATIENT [facility] MDM 60-74 MINUTES Sandy Braswell MD [address] [place] [address] Referral ID Status Reason Start Date Expiration Date Visits Requested Visits Authorized [id number] Authorized PCP Requested Referral 02/05/2022 02/05/2023 1 1 Specialty Diagnoses / Procedures Referred By Contac t Referred To Contact Vascular Surgery Diagnoses Other diabetic neurological complication associated with type 2 diabetes mellitus (HCC) PAD (peripheral artery disease) (HCC) Procedures CONSULT TO VASCULAR SURGERY OFFICE/OUTPATIENT [facility] 60-74 MINUTES Albert Good [address] [place] [address] Referral ID Status Reason Start Date Expiration Date Visits Requested Visits Authorized [id number] Authorized PCP Requested Referral 02/19/2022 05/20/2022 1 1 Specialty Diagnoses / Procedures Referred By Contac t Referred To Contact Orthopedics Diagnoses Lump of skin Acute shoulder bursitis, right Mass of joint of right shoulder Procedures CONSULT TO ORTHOPAEDICS OFFICE/OUTPATIENT [facility] 60-74 MINUTES Adriel Solis MD [address] [facility] [facility] [place] [address] Evelyn Gonsalez PA-C [address] [place] [address] Referral ID Status Reason Start Date Expiration Date Visits Requested Visits Authorized [id number] Authorized PCP Requested Referral 02/27/2022 02/27/2023 1 1 Specialty Diagnoses / Procedures Referred By Contac t Referred To Contact CT IMAGING Diagnoses Peripheral vascular disease (HCC) Procedures CTA ABD/PEL LOWER EXTREM W IVCON CTA ABDL AORTA&BI ILIOFEM W/CONTRAST&POSTP Evelin Bright, DO [address] [place] [address] Ct Imaging Referral ID Status Reason Start Date Expiration Date Visits Requested Visits Authorized [id number] Authorized Auto-Generat ed Referral 05/29/2023 1 1 Specialty Diagnoses / Procedures Referred By Contac t Referred To Contact General Surgery Diagnoses Ventral hernia without obstruction or gangrene Procedures CONSULT TO GENERAL SURGERY OFFICE/OUTPATIENT [facility] 60-74 MINUTES Flaca Fischer, SLOT FLOORPERSON.ADVANCED CLINICAL SPECIALIST [address] [place] [address] Referral ID Status Reason Start Date Expiration Date Visits Requested Visits Authorized [id number] Pending Review PCP Requested Referral 08/04/2022 08/04/2023 1 1 Specialty Diagnoses / Procedures Referred By Contac t Referred To Contact CT IMAGING Diagnoses Incisional hernia, without obstruction or gangrene Procedures CT ABD/PEL WO IVCON CT ABD & PELVIS W/O CONTRAST Adriel Solis MD [address] [place] [address] Ct Imaging Referral ID Status Reason Start Date Expiration Date Visits Requested Visits Authorized [id number] Pending Review Auto-Generat ed Referral 09/02/2022 10/02/2023 1 1 Specialty Diagnoses / Procedures Referred By Contac t Referred To Contact Diagnoses 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) Tobacco use Procedures CONSULT LUNG CANCER SCREENING CLINIC Sandy Braswell MD [address] [place] [address] Referral ID Status Reason Start Date Expiration Date Visits Requested Visits Authorized [id number] Ref Not Required PCP Requested Referral 11/27/2022 02/25/2023 1 1 Specialty Diagnoses / Procedures Referred By Contac t Referred To Contact Pain Management Diagnoses DDD (degenerative disc disease), lumbar Procedures CONSULT TO PAIN MGT Sandy Braswell MD [address] [place] [address] Referral ID Status Reason Start Date Expiration Date Visits Requested Visits Authorized [id number] Ref Not Required PCP Requested Referral 01/20/2023 01/20/2024 1 1 Specialty Diagnoses / Procedures Referred By Contac t Referred To Contact CT IMAGING Diagnoses Incisional hernia, without obstruction or gangrene Procedures CT ABD/PEL WO IVCON CT ABD & PELVIS W/O CONTRAST Adriel Solis MD [address] [place] [address] [place] [address] Referral ID Status Reason Start Date Expiration Date V isits Requested Visits Authorized [id number] Closed Auto-Generate d Referral 09/02/2022 10/02/2023 1 1 Specialty Diagnoses / Procedures Referred By Yesika t Referred To Contact Orthopedics Diagnoses Cellulitis of knee Procedures CONSULT TO ORTHOPAEDICS Sandy Braswell MD [address] [place] [address] Referral ID Status Reason Start Date Expiration Date Visits Requested Visits Authorized [id number] Ref Not Required PCP Requested Referral 12/14/2023 12/13/2024 1 1 Specialty Diagnoses / Procedures Referred By Yesika t Referred To Contact Diagnoses Screening for lung cancer Procedures CONSULT LUNG CAN[facility]ER SCREENING CLINIC Sandy Braswell MD [address] [place] [address] Referral ID Status Reason Start Date Expiration Date Visits Requested Visits Authorized [id number] Ref Not Required PCP Requested Referral 06/28/2024 1 1 Medications Administered Section Active Administered Medications - up to 3 most recent administrations Medication Order MAR Action Action Date Dose Rate Site fluorescein-benoxinate 0.25-0.4 % 1 Drop (FLURESS) 1 Drop, BOTH EYES, DIRECTED, Starting on Thu02/07/22 at 1030, Until Thu02/07/22 at 2228, Administer for applanation tonometry. In the event of a Fluress shortage, administer Ramsay-Fluor 1 drop into both eyes as directed for applanation tonometry Given 02/07/2022 10:30 AM EDT 1 Drop PHENYLephrine 2.5 % 1 Drop (AK-DILATE, BHUPENDRA-SYNEPHRINE) 1 Drop, BOTH EYES, DIRECTED, Starting on Thu02/07/22 at 1030, Until Thu02/07/22 at 222, Administer for dilation PROTECT FROM LIGHT Given 02/07/2022 10:30 AM EDT 1 Drop tropicamide 1 % 1 Drop (MYDRIACYL) 1 Drop, BOTH EYES, DIRECTED, Starting on Thu02/07/22 at 1030, Until Thu02/07/22 at 2228, Administer for dilation Given 02/07/2022 10:30 AM EDT 1 Drop Chief Complaint and Reason for Visit Chief Complaint Diabetes 3 M FU EORDER Amb Documentation Reason for Visit Diabetic retinopathy associated with type 1 diabetes mellitus Polyneuropathy due to type 1 diabetes mellitus Hypothyroidism Polyneuropathy due to type 1 diabetes mellitus Chief Complaint 3 M FU EORDER Amb Documentation NEW TO AREA, PREV STENTS Peripheral artery disease Reason for Visit Hypothyroidism Polyneuropathy due to type 1 diabetes mellitus Atherosclerotic heart disease of [place] coronary artery without angina pectoris Diabetes mellitus Essential hypertension Mixed hyperlipidemia Nicotine dependence Peripheral arterial disease Peripheral arterial disease Chief Complaint 3 M FU EORDER Amb Documentation NEW TO AREA, PREV STENTS Peripheral artery disease PAD WITH BLE CLAUDICATION Reason for Visit Hypothyroidism Polyneuropathy due to type 1 diabetes mellitus Atherosclerotic heart disease of [place] coronary artery without angina pectoris Diabetes mellitus Essential hypertension Mixed hyperlipidemia Nicotine dependence Peripheral arterial disease Peripheral arterial disease Chief Complaint 3 M FU EORDER Amb Documentation NEW TO AREA, PREV STENTS Peripheral artery disease PAD WITH BLE CLAUDICATION LUMBER SPINE RM 2 3 M FU LUMBAR SPONDYLOSIS Reason for Visit Hypothyroidism Polyneuropathy due to type 1 diabetes mellitus Atherosclerotic heart disease of [place] coronary artery without angina pectoris Essential hypertension Mixed hyperlipidemia Nicotine dependence Peripheral arterial disease Peripheral arterial disease Lumbar degenerative disc disease Spondylosis of lumbar region without myelopathy or radiculopathy Essential hypertension Hypothyroidism Polyneuropathy due to type 1 diabetes mellitus Type 1 diabetes mellitus with hyperglycemia Chief Complaint PAD WITH BLE CLAUDIC ATION LUMBER SPINE RM 2 3 M FU LUMBAR SPONDYLOSIS DISCUSS RESULTS POSSIBLE STENTS POSSIBLE STENTS LUMBAR SPINE 2-4 WK FU PVD Reason for Visit Lumbar degenerative disc disease Spondylosis of lumbar region without myelopathy or radiculopathy Essential hypertension Hypothyroidism Polyneuropathy due to type 1 diabetes mellitus Type 1 diabetes mellitus with hyperglycemia Peripheral arterial disease Lumbar degenerative disc disease Spondylosis of lumbar region without myelopathy or radiculopathy Atherosclerosis of both lower extremities with intermittent claudication Chief Complaint 3 M FU LUMBAR SPONDYLOSIS DISCUSS RESULTS POSSIBLE STENTS POSSIBLE STENTS LUMBAR SPINE 2-4 WK FU PVD Lung cancer screening Nicotine dependence, cigarettes, with other nicoti 6 M FU Reason for Visit Essential hypertensi on Hypothyroidism Polyneuropathy due to type 1 diabetes mellitus Type 1 diabetes mellitus with hyperglycemia Peripheral arterial disease Lumbar degenerative disc disease Spondylosis of lumbar region without myelopathy or radiculopathy Atherosclerosis of both lower extremities with intermittent claudication Encounter for screening for malignant neoplasm of lung Tobacco use disorder, continuous Atherosclerotic heart disease of [place] coronary artery without angina pectoris Essential hypertension Mixed hyperlipidemia Nicotine dependence Peripheral arterial disease Chief Complaint 2-4 WK FU PVD Lung cancer screening Nicotine dependence, cigarettes, with other nicoti 6 M FU 5 M FU, RS 12/15 ATHEROSCLEROTIC HEART DISEASE Amb Documentation Reason for Visit Atherosclerosis of b oth lower extremities with intermittent claudication Encounter for screening for malignant neoplasm of lung Tobacco use disorder, continuous Atherosclerotic heart disease of [place] coronary artery without angina pectoris Essential hypertension Mixed hyperlipidemia Nicotine dependence Peripheral arterial disease Nicotine dependence Overweight Type 1 diabetes mellitus with hyperglycemia Chief Complaint LUMBAR SPINAL STENOS IS / RX HERE 8 Wk FU Reason for Visit Overweight Tobacco use disorder, continuous Type 1 diabetes mellitus with hyperglycemia Chief Complaint Admit Date 5 M FU, NS 01/19June 13, 2024 1 1:24am EORDER June 15, 2024 1 :02pm SCREENING August 31, 2024 11:4 8am Reason for Visit Admit Date Chronic kidney disease June 13 11:24am Essential hypertension June 13 11:24am Hypothyroidism June 13, 2024 1 1:24am Mixed hyperlipidemia June 13, 2024 11:24am Overweight June 13, 2024 1 1:24am Type 1 diabetes mellitus with hyperglyce adan June 13, 2024 11:24am Chief Complaint Admit Date SCREENING August 31, 2024 11:4 8am 3 M FU September 12, 2024 10: 19am LUNG CANCER SCREENING September 13, 2024 1 2:13pm TOBACCO ABUSE September 13, 2024 12: 52pm 6 M FU September 22, 2024 1:1 3pm 2 Y FU October 19, 2024 2:11p m Reason for Visit Admit Date Insulin pump titration September 12, 2024 10:19am Chronic kidney disease September 12, 2024 10:19am Essential hypertension September 12, 2024 10:19am Hypothyroidism September 12, 2024 10: 19am Microalbuminuria September 12, 2024 10: 19am Overweight September 12, 2024 10: 19am Presence of insulin pump September 12 10:19am Type 1 diabetes mellitus with hyperglyce [facility] September 12, 2024 10:19am Vitamin D deficiency September 12, 2024 10 :19am Encounter for screening for malignant ne oplasm of lung September 13, 2024 12:13pm History of tobacco use September 13, 2024 12:13pm Preoperative clearance September 22, 2024 1:13pm Essential hypertension September 22, 2024 1:13pm Mixed hyperlipidemia September 22, 2024 1: 13pm Peripheral arterial disease September 22, 2024 1:13pm Status post aorto-coronary artery bypass graft September 22, 2024 1:13pm Transient atrial fibrillation August 1:13pm Chief Complaint Admit Date SCREENING August 31, 2024 11:4 8am 3 M FU September 12, 2024 10: 19am LUNG CANCER SCREENING September 13, 2024 1 2:13pm TOBACCO ABUSE September 13, 2024 12: 52pm 6 M FU September 22, 2024 1:1 3pm 2 Y FU October 19, 2024 2:11p m RECLAST October 25, 2024 1:46p m Reason for Visit Admit Date Insulin pump titration September 12, 2024 10:19am Chronic kidney disease September 12, 2024 10:19am Essential hypertension September 12, 2024 10:19am Hypothyroidism September 12, 2024 10: 19am Microalbuminuria September 12, 2024 10: 19am Overweight September 12, 2024 10: 19am Presence of insulin pump September 12 10:19am Type 1 diabetes mellitus with hyperglyce adan September 12, 2024 10:19am Vitamin D deficiency September 12, 2024 10 :19am Encounter for screening for malignant ne oplasm of lung September 13, 2024 12:13pm History of tobacco use September 13, 2024 12:13pm Preoperative clearance September 22, 2024 1:13pm Essential hypertension September 22, 2024 1:13pm Mixed hyperlipidemia September 22, 2024 1: 13pm Peripheral arterial disease September 22, 2024 1:13pm Status post aorto-coronary artery bypass graft September 22, 2024 1:13pm Transient atrial fibrillation August 1:13pm Peripheral arterial disease October 19 2:11pm Chief Complaint Admit Date SCREENING August 31, 2024 11:4 8am 3 M FU September 12, 2024 10: 19am LUNG CANCER SCREENING September 13, 2024 1 2:13pm TOBACCO ABUSE September 13, 2024 12: 52pm 6 M FU September 22, 2024 1:1 3pm 2 Y FU October 19, 2024 2:11p m RECLAST October 25, 2024 1:46p m Pump Adjustments for Surgery October 31 9:48am Chief Complaint Admit Date SCREENING August 31, 2024 11:4 8am 3 M FU September 12, 2024 10: 19am LUNG CANCER SCREENING September 13, 2024 1 2:13pm TOBACCO ABUSE September 13, 2024 12: 52pm 6 M FU September 22, 2024 1:1 3pm 2 Y FU October 19, 2024 2:11p m RECLAST October 25, 2024 1:46p m Pump Adjustments for Surgery October 31 9:48am 3 M FU December 12, 2024 10:1 6am Reason for Visit Admit Date Insulin pump titration September 12, 2024 10:19am Chronic kidney disease September 12, 2024 10:19am Essential hypertension September 12, 2024 10:19am Hypothyroidism September 12, 2024 10: 19am Microalbuminuria September 12, 2024 10: 19am Overweight September 12, 2024 10: 19am Presence of insulin pump September 12 10:19am Type 1 diabetes mellitus with hyperglyce adan September 12, 2024 10:19am Vitamin D deficiency September 12, 2024 10 :19am Encounter for screening for malignant ne oplasm of lung September 13, 2024 12:13pm History of tobacco use September 13, 2024 12:13pm Preoperative clearance September 22, 2024 1:13pm Essential hypertension September 22, 2024 1:13pm Mixed hyperlipidemia September 22, 2024 1: 13pm Peripheral arterial disease September 22, 2024 1:13pm Status post aorto-coronary artery bypass graft September 22, 2024 1:13pm Transient atrial fibrillation August 1:13pm Peripheral arterial disease October 19 2:11pm Insulin pump titration October 31, 2024 9: 48am Presence of insulin pump October 31, 2024 9:48am Type 1 diabetes mellitus with hyperglyce adan October 31, 2024 9:48am Family History No Family History Records Found Relationship Condition Age at Onset Recorded Date/T adela Not Specified Diabetes mellitus Unknown Osteoporosis Unknown Anxiety Unknown Arthritis Unknown Cardiovascular disease Unknown Depression Unknown Kidney disorder Unknown Myocardial infarction Unknown Disorder of respiratory system Unknown Hypertension Unknown Disorder of thyroid Unknown Relationship Condition Age at Onset Recorded Date/T adela Not Specified Diabetes mellitus Unknown Osteoporosis Unknown Anxiety Unknown Arthritis Unknown Cardiovascular disease Unknown Depression Unknown Hyperlipidemia Unknown Kidney disorder Unknown Myocardial infarction Unknown Malignant neoplasm of breast Unknown Chronic obstructive pulmonary disease Unk nown Disorder of respiratory system Unknown Malignant neoplasm Unknown Hypertension Unknown Disorder of thyroid Unknown Cerebrovascular accident (CVA) Unknown Advance Directives No Advanced Directives Records Found Advance Directive Response Recorded Date/ Time Advance Directives No October 21 8:09am Living Will No October 21, 2022 8 :09am Power of Mud Tank Operator No October 21, 2022 8:09am Advance Directive Response Recorded Date/ Time Advance Directives No October 21 7:09am Living Will No October 21, 2022 7 :09am Power of Mud Tank Operator No October 21, 2022 7:09am Advance Directive Response Recorded Date/ Time Advance Directives No December 21 8:08am Advance Directive Response Recorded Date/ Time Advance Directives No September 30, 2024 2:21pm Summary Purpose Additional Source Comments Source Comments (unrecognize d section and content) In the event this informatio n is protected by the Federal Confidentiality of Alcohol and Drug Abuse Patient Records regulations: The Federal rules restrict any use of the information to criminally investigate or prosecute any alcohol or drug abuse patient.[facility] the event this information is protected by the Federal Confidentiality of Alcohol and Drug Abuse Patient Records regulations: The Federal rules restrict any use of the information to criminally investigate or prosecute any alcohol or drug abuse patient.[facility] the event this information is protected by the Federal Confidentiality of Alcohol and Drug Abuse Patient Records regulations: The Federal rules restrict any use of the information to criminally investigate or prosecute any alcohol or drug abuse patient.[facility]In the event this information is protected by the Federal Confidentiality of Alcohol and Drug Abuse Patient Records regulations: The Federal rules restrict any use of the information to criminally investigate or prosecute any alcohol or drug abuse patient.[facility] DaytonIn the event this information is protected by the Federal Confidentiality of Alcohol and Drug Abuse Patient Records regulations: The Federal rules restrict any use of the information to criminally investigate or prosecute any alcohol or drug abuse patient.[facility] DaytonIn the event this information is protected by the Federal Confidentiality of Alcohol and Drug Abuse Patient Records regulations: The Federal rules restrict any use of the information to criminally investigate or prosecute any alcohol or drug abuse patient.[facility] DaytonIn the event this information is protected by the Federal Confidentiality of Alcohol and Drug Abuse Patient Records regulations: The Federal rules restrict any use of the information to criminally investigate or prosecute any alcohol or drug abuse patient.[facility] DaytonIn the event this information is protected by the Federal Confidentiality of Alcohol and Drug Abuse Patient Records regulations: The Federal rules restrict any use of the information to criminally investigate or prosecute any alcohol or drug abuse patient.[facility] DaytonIn the event this information is protected by the Federal Confidentiality of Alcohol and Drug Abuse Patient Records regulations: The Federal rules restrict any use of the information to criminally investigate or prosecute any alcohol or drug abuse patient.[facility] DaytonIn the event this information is protected by the Federal Confidentiality of Alcohol and Drug Abuse Patient Records regulations: The Federal rules restrict any use of the information to criminally investigate or prosecute any alcohol or drug abuse patient.[facility] DaytonIn the event this information is protected by the Federal Confidentiality of Alcohol and Drug Abuse Patient Records regulations: The Federal rules restrict any use of the information to criminally investigate or prosecute any alcohol or drug abuse patient.[facility] DaytonIn the event this information is protected by the Federal Confidentiality of Alcohol and Drug Abuse Patient Records regulations: The Federal rules restrict any use of the information to criminally investigate or prosecute any alcohol or drug abuse patient.[facility] DaytonIn the event this information is protected by the Federal Confidentiality of Alcohol and Drug Abuse Patient Records regulations: The Federal rules restrict any use of the information to criminally investigate or prosecute any alcohol or drug abuse patient.[facility] DaytonIn the event this information is protected by the Federal Confidentiality of Alcohol and Drug Abuse Patient Records regulations: The Federal rules restrict any use of the information to criminally investigate or prosecute any alcohol or drug abuse patient.[facility] DaytonIn the event this information is protected by the Federal Confidentiality of Alcohol and Drug Abuse Patient Records regulations: The Federal rules restrict any use of the information to criminally investigate or prosecute any alcohol or drug abuse patient.[facility] DaytonIn the event this information is protected by the Federal Confidentiality of Alcohol and Drug Abuse Patient Records regulations: The Federal rules restrict any use of the information to criminally investigate or prosecute any alcohol or drug abuse patient.[facility] DaytonIn the event this information is protected by the Federal Confidentiality of Alcohol and Drug Abuse Patient Records regulations: The Federal rules restrict any use of the information to criminally investigate or prosecute any alcohol or drug abuse patient.[facility] DaytonIn the event this information is protected by the Federal Confidentiality of Alcohol and Drug Abuse Patient Records regulations: The Federal rules restrict any use of the information to criminally investigate or prosecute any alcohol or drug abuse patient.[facility] DaytonIn the event this information is protected by the Federal Confidentiality of Alcohol and Drug Abuse Patient Records regulations: The Federal rules restrict any use of the information to criminally investigate or prosecute any alcohol or drug abuse patient.[facility] DaytonIn the event this information is protected by the Federal Confidentiality of Alcohol and Drug Abuse Patient Records regulations: The Federal rules restrict any use of the information to criminally investigate or prosecute any alcohol or drug abuse patient.[facility] DaytonIn the event this information is protected by the Federal Confidentiality of Alcohol and Drug Abuse Patient Records regulations: The Federal rules restrict any use of the information to criminally investigate or prosecute any alcohol or drug abuse patient.[facility] DaytonIn the event this information is protected by the Federal Confidentiality of Alcohol and Drug Abuse Patient Records regulations: The Federal rules restrict any use of the information to criminally investigate or prosecute any alcohol or drug abuse patient.[facility] DaytonIn the event this information is protected by the Federal Confidentiality of Alcohol and Drug Abuse Patient Records regulations: The Federal rules restrict any use of the information to criminally investigate or prosecute any alcohol or drug abuse patient.[facility] DaytonIn the event this information is protected by the Federal Confidentiality of Alcohol and Drug Abuse Patient Records regulations: The Federal rules restrict any use of the information to criminally investigate or prosecute any alcohol or drug abuse patient.[facility] DaytonIn the event this information is protected by the Federal Confidentiality of Alcohol and Drug Abuse Patient Records regulations: The Federal rules restrict any use of the information to criminally investigate or prosecute any alcohol or drug abuse patient.[facility] DaytonIn the event this information is protected by the Federal Confidentiality of Alcohol and Drug Abuse Patient Records regulations: The Federal rules restrict any use of the information to criminally investigate or prosecute any alcohol or drug abuse patient.[facility] DaytonIn the event this information is protected by the Federal Confidentiality of Alcohol and Drug Abuse Patient Records regulations: The Federal rules restrict any use of the information to criminally investigate or prosecute any alcohol or drug abuse patient.[facility] DaytonIn the event this information is protected by the Federal Confidentiality of Alcohol and Drug Abuse Patient Records regulations: The Federal rules restrict any use of the information to criminally investigate or prosecute any alcohol or drug abuse patient.[facility] DaytonIn the event this information is protected by the Federal Confidentiality of Alcohol and Drug Abuse Patient Records regulations: The Federal rules restrict any use of the information to criminally investigate or prosecute any alcohol or drug abuse patient.[facility] DaytonIn the event this information is protected by the Federal Confidentiality of Alcohol and Drug Abuse Patient Records regulations: The Federal rules restrict any use of the information to criminally investigate or prosecute any alcohol or drug abuse patient.[facility] DaytonIn the event this information is protected by the Federal Confidentiality of Alcohol and Drug Abuse Patient Records regulations: The Federal rules restrict any use of the information to criminally investigate or prosecute any alcohol or drug abuse patient.[facility] DaytonIn the event this information is protected by the Federal Confidentiality of Alcohol and Drug Abuse Patient Records regulations: The Federal rules restrict any use of the information to criminally investigate or prosecute any alcohol or drug abuse patient.[facility] DaytonIn the event this information is protected by the Federal Confidentiality of Alcohol and Drug Abuse Patient Records regulations: The Federal rules restrict any use of the information to criminally investigate or prosecute any alcohol or drug abuse patient.[facility] DaytonIn the event this information is protected by the Federal Confidentiality of Alcohol and Drug Abuse Patient Records regulations: The Federal rules restrict any use of the information to criminally investigate or prosecute any alcohol or drug abuse patient.[facility] DaytonIn the event this information is protected by the Federal Confidentiality of Alcohol and Drug Abuse Patient Records regulations: The Federal rules restrict any use of the information to criminally investigate or prosecute any alcohol or drug abuse patient.[facility] DaytonIn the event this information is protected by the Federal Confidentiality of Alcohol and Drug Abuse Patient Records regulations: The Federal rules restrict any use of the information to criminally investigate or prosecute any alcohol or drug abuse patient.[facility] DaytonIn the event this information is protected by the Federal Confidentiality of Alcohol and Drug Abuse Patient Records regulations: The Federal rules restrict any use of the information to criminally investigate or prosecute any alcohol or drug abuse patient.[facility] DaytonIn the event this information is protected by the Federal Confidentiality of Alcohol and Drug Abuse Patient Records regulations: The Federal rules restrict any use of the information to criminally investigate or prosecute any alcohol or drug abuse patient.[facility] DaytonIn the event this information is protected by the Federal Confidentiality of Alcohol and Drug Abuse Patient Records regulations: The Federal rules restrict any use of the information to criminally investigate or prosecute any alcohol or drug abuse patient.[facility] DaytonIn the event this information is protected by the Federal Confidentiality of Alcohol and Drug Abuse Patient Records regulations: The Federal rules restrict any use of the information to criminally investigate or prosecute any alcohol or drug abuse patient.[facility] DaytonIn the event this information is protected by the Federal Confidentiality of Alcohol and Drug Abuse Patient Records regulations: The Federal rules restrict any use of the information to criminally investigate or prosecute any alcohol or drug abuse patient.[facility] DaytonIn the event this information is protected by the Federal Confidentiality of Alcohol and Drug Abuse Patient Records regulations: The Federal rules restrict any use of the information to criminally investigate or prosecute any alcohol or drug abuse patient.[facility] DaytonIn the event this information is protected by the Federal Confidentiality of Alcohol and Drug Abuse Patient Records regulations: The Federal rules restrict any use of the information to criminally investigate or prosecute any alcohol or drug abuse patient.[facility] DaytonIn the event this information is protected by the Federal Confidentiality of Alcohol and Drug Abuse Patient Records regulations: The Federal rules restrict any use of the information to criminally investigate or prosecute any alcohol or drug abuse patient.[facility] DaytonIn the event this information is protected by the Federal Confidentiality of Alcohol and Drug Abuse Patient Records regulations: The Federal rules restrict any use of the information to criminally investigate or prosecute any alcohol or drug abuse patient.[facility] DaytonIn the event this information is protected by the Federal Confidentiality of Alcohol and Drug Abuse Patient Records regulations: The Federal rules restrict any use of the information to criminally investigate or prosecute any alcohol or drug abuse patient.[facility] DaytonIn the event this information is protected by the Federal Confidentiality of Alcohol and Drug Abuse Patient Records regulations: The Federal rules restrict any use of the information to criminally investigate or prosecute any alcohol or drug abuse patient.[facility] DaytonIn the event this information is protected by the Federal Confidentiality of Alcohol and Drug Abuse Patient Records regulations: The Federal rules restrict any use of the information to criminally investigate or prosecute any alcohol or drug abuse patient.[facility] DaytonIn the event this information is protected by the Federal Confidentiality of Alcohol and Drug Abuse Patient Records regulations: The Federal rules restrict any use of the information to criminally investigate or prosecute any alcohol or drug abuse patient.[facility] DaytonIn the event this information is protected by the Federal Confidentiality of Alcohol and Drug Abuse Patient Records regulations: The Federal rules restrict any use of the information to criminally investigate or prosecute any alcohol or drug abuse patient.[facility] DaytonIn the event this information is protected by the Federal Confidentiality of Alcohol and Drug Abuse Patient Records regulations: The Federal rules restrict any use of the information to criminally investigate or prosecute any alcohol or drug abuse patient.[facility] DaytonIn the event this information is protected by the Federal Confidentiality of Alcohol and Drug Abuse Patient Records regulations: The Federal rules restrict any use of the information to criminally investigate or prosecute any alcohol or drug abuse patient.[facility] DaytonIn the event this information is protected by the Federal Confidentiality of Alcohol and Drug Abuse Patient Records regulations: The Federal rules restrict any use of the information to criminally investigate or prosecute any alcohol or drug abuse patient.[facility] DaytonIn the event this information is protected by the Federal Confidentiality of Alcohol and Drug Abuse Patient Records regulations: The Federal rules restrict any use of the information to criminally investigate or prosecute any alcohol or drug abuse patient.[facility] DaytonIn the event this information is protected by the Federal Confidentiality of Alcohol and Drug Abuse Patient Records regulations: The Federal rules restrict any use of the information to criminally investigate or prosecute any alcohol or drug abuse patient.[facility] DaytonIn the event this information is protected by the Federal Confidentiality of Alcohol and Drug Abuse Patient Records regulations: The Federal rules restrict any use of the information to criminally investigate or prosecute any alcohol or drug abuse patient.[facility] DaytonIn the event this information is protected by the Federal Confidentiality of Alcohol and Drug Abuse Patient Records regulations: The Federal rules restrict any use of the information to criminally investigate or prosecute any alcohol or drug abuse patient.[facility] DaytonIn the event this information is protected by the Federal Confidentiality of Alcohol and Drug Abuse Patient Records regulations: The Federal rules restrict any use of the information to criminally investigate or prosecute any alcohol or drug abuse patient.[facility] DaytonIn the event this information is protected by the Federal Confidentiality of Alcohol and Drug Abuse Patient Records regulations: The Federal rules restrict any use of the information to criminally investigate or prosecute any alcohol or drug abuse patient.[facility] DaytonIn the event this information is protected by the Federal Confidentiality of Alcohol and Drug Abuse Patient Records regulations: The Federal rules restrict any use of the information to criminally investigate or prosecute any alcohol or drug abuse patient.[facility] DaytonIn the event this information is protected by the Federal Confidentiality of Alcohol and Drug Abuse Patient Records regulations: The Federal rules restrict any use of the information to criminally investigate or prosecute any alcohol or drug abuse patient.[facility]In the event this information is protected by the Federal Confidentiality of Alcohol and Drug Abuse Patient Records regulations: The Federal rules restrict any use of the information to criminally investigate or prosecute any alcohol or drug abuse patient.[facility] DaytonIn the event this information is protected by the Federal Confidentiality of Alcohol and Drug Abuse Patient Records regulations: The Federal rules restrict any use of the information to criminally investigate or prosecute any alcohol or drug abuse patient.[facility] DaytonIn the event this information is protected by the Federal Confidentiality of Alcohol and Drug Abuse Patient Records regulations: The Federal rules restrict any use of the information to criminally investigate or prosecute any alcohol or drug abuse patient.[facility] DaytonIn the event this information is protected by the Federal Confidentiality of Alcohol and Drug Abuse Patient Records regulations: The Federal rules restrict any use of the information to criminally investigate or prosecute any alcohol or drug abuse patient.[facility] DaytonIn the event this information is protected by the Federal Confidentiality of Alcohol and Drug Abuse Patient Records regulations: The Federal rules restrict any use of the information to criminally investigate or prosecute any alcohol or drug abuse patient.[facility] DaytonIn the event this information is protected by the Federal Confidentiality of Alcohol and Drug Abuse Patient Records regulations: The Federal rules restrict any use of the information to criminally investigate or prosecute any alcohol or drug abuse patient.[facility] DaytonIn the event this information is protected by the Federal Confidentiality of Alcohol and Drug Abuse Patient Records regulations: The Federal rules restrict any use of the information to criminally investigate or prosecute any alcohol or drug abuse patient.[facility] DaytonIn the event this information is protected by the Federal Confidentiality of Alcohol and Drug Abuse Patient Records regulations: The Federal rules restrict any use of the information to criminally investigate or prosecute any alcohol or drug abuse patient.[facility] DaytonIn the event this information is protected by the Federal Confidentiality of Alcohol and Drug Abuse Patient Records regulations: The Federal rules restrict any use of the information to criminally investigate or prosecute any alcohol or drug abuse patient.[facility] DaytonIn the event this information is protected by the Federal Confidentiality of Alcohol and Drug Abuse Patient Records regulations: The Federal rules restrict any use of the information to criminally investigate or prosecute any alcohol or drug abuse patient.[facility] DaytonIn the event this information is protected by the Federal Confidentiality of Alcohol and Drug Abuse Patient Records regulations: The Federal rules restrict any use of the information to criminally investigate or prosecute any alcohol or drug abuse patient.[facility] DaytonIn the event this information is protected by the Federal Confidentiality of Alcohol and Drug Abuse Patient Records regulations: The Federal rules restrict any use of the information to criminally investigate or prosecute any alcohol or drug abuse patient.[facility]In the event this information is protected by the Federal Confidentiality of Alcohol and Drug Abuse Patient Records regulations: The Federal rules restrict any use of the information to criminally investigate or prosecute any alcohol or drug abuse patient.[facility] DaytonIn the event this information is protected by the Federal Confidentiality of Alcohol and Drug Abuse Patient Records regulations: The Federal rules restrict any use of the information to criminally investigate or prosecute any alcohol or drug abuse patient.[facility] DaytonIn the event this information is protected by the Federal Confidentiality of Alcohol and Drug Abuse Patient Records regulations: The Federal rules restrict any use of the information to criminally investigate or prosecute any alcohol or drug abuse patient.[facility] DaytonIn the event this information is protected by the Federal Confidentiality of Alcohol and Drug Abuse Patient Records regulations: The Federal rules restrict any use of the information to criminally investigate or prosecute any alcohol or drug abuse patient.[facility]In the event this information is protected by the Federal Confidentiality of Alcohol and Drug Abuse Patient Records regulations: The Federal rules restrict any use of the information to criminally investigate or prosecute any alcohol or drug abuse patient.[facility] DaytonIn the event this information is protected by the Federal Confidentiality of Alcohol and Drug Abuse Patient Records regulations: The Federal rules restrict any use of the information to criminally investigate or prosecute any alcohol or drug abuse patient.[facility] DaytonIn the event this information is protected by the Federal Confidentiality of Alcohol and Drug Abuse Patient Records regulations: The Federal rules restrict any use of the information to criminally investigate or prosecute any alcohol or drug abuse patient.[facility]In the event this information is protected by the Federal Confidentiality of Alcohol and Drug Abuse Patient Records regulations: The Federal rules restrict any use of the information to criminally investigate or prosecute any alcohol or drug abuse patient.[facility] DaytonIn the event this information is protected by the Federal Confidentiality of Alcohol and Drug Abuse Patient Records regulations: The Federal rules restrict any use of the information to criminally investigate or prosecute any alcohol or drug abuse patient.[facility] DaytonIn the event this information is protected by the Federal Confidentiality of Alcohol and Drug Abuse Patient Records regulations: The Federal rules restrict any use of the information to criminally investigate or prosecute any alcohol or drug abuse patient.[facility] DaytonIn the event this information is protected by the Federal Confidentiality of Alcohol and Drug Abuse Patient Records regulations: The Federal rules restrict any use of the information to criminally investigate or prosecute any alcohol or drug abuse patient.[facility] Reason for Visit (unrecogniz ed section and content) Reason Comments Consult Specialty Diagnoses / Procedures Referred By Contac t Referred To Contact General Surgery / GENERAL SURGERY Diagnoses hernia Procedures EST DDI PATIENT Self Adriel Solis MD [address] [place] [address] Phone: tel: fax: Referral ID Status Reason Start Date Expiration Date V isits Requested Visits Authorized [id number] Pending Review 07/22/2024 10/20/2024 1 1 Reason Comments Refill Request Reason Comments Patient Question Reason Comments New Patient Previous Pt of Dr. Cm ago. Here to re-establish care Reason Comments Results Reason Comments Results Reason Comments walker prescription Pt would like to pic k up in Medical Records. Reason Comments Established Patient Follow Up Diabetic Foot Care Pain Reason Comments DM Supplies Forms Reason Comments Radiology US Specialty Diagnoses / Procedures Referred By Contac t Referred To Contact US IMAGING Diagnoses Renal cyst Procedures US KIDNEY/BLADDER US RETROPERITONEAL REAL TIME W/IMAGE COMPLETE Sandy Braswell MD [address] [place] [address] Us Imaging Referral ID Status Reason Start Date Expiration Date V isits Requested Visits Authorized [id number] Closed Auto-Generate d Referral 01/27/2022 02/26/2023 1 1 Reason Comments Diabetes Specialty Diagnoses / Procedures Referred By Contac t Referred To Contact Ophthalmology Diagnoses 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) Diabetic polyneuropathy associated with type 1 diabetes mellitus (HCC) Procedures CONSULT TO OPHTHALMOLOGY OFFICE/OUTPATIENT NEW HIGH MDM 60-74 MINUTES Sandy Braswell MD [address] [place] [address] Referral ID Status Reason Start Date Expiration Date V isits Requested Visits Authorized [id number] Closed PCP Requested Referral 01/27/2022 01/27/2023 1 1 Specialty Diagnoses / Procedures Referred By Contac t Referred To Contact General Surgery Diagnoses Lump of skin Procedures CONSULT TO GENERAL SURGERY OFFICE/OUTPATIENT NEW HIGH MDM 60-74 MINUTES Sandy Braswell MD [address] [place] [address] Referral ID Status Reason Start Date Expiration Date V isits Requested Visits Authorized [id number] Closed PCP Requested Referral 01/29/2022 01/29/2023 1 1 Reason Comments Follow Up Reason Comments Orders Opened In Error Reason Comments Appointment Reason Comments Insurance Authorization Reason Comments Dry Eye(s) Both Eyes Blurred Vision Both Eyes Reason Comments New Xray 01/27/22 Tumor/Mass Xray 01/27/22 Specialty Diagnoses / Procedures Referred By Contac t Referred To Contact Orthopedics Diagnoses Lump of skin Acute shoulder bursitis, right Mass of joint of right shoulder Procedures CONSULT TO ORTHOPAEDICS OFFICE/OUTPATIENT NEW [facility] MDM 60-74 MINUTES Adriel Solis MD [address] [place] [address] Evelyn Gonsalez PA-C [address] [place] [address] Referral ID Status Reason Start Date Expiration Date V isits Requested Visits Authorized [id number] Closed PCP Requested Referral 02/27/2022 02/27/2023 1 1 Reason Comments New Patient Specialty Diagnoses / Procedures Referred By Contac t Referred To Contact Vascular Surgery Diagnoses Other diabetic neurological complication associated with type 2 diabetes mellitus (HCC) PAD (peripheral artery disease) (HCC) Procedures CONSULT TO VASCULAR SURGERY OFFICE/OUTPATIENT NEW [facility] MDM 60-74 MINUTES Albert Good [address] [place] [address] Referral ID Status Reason Start Date Expiration Date V isits Requested Visits Authorized [id number] Closed PCP Requested Referral 02/19/2022 05/20/2022 1 1 Reason Onset Date Comments Population Health Navigation Outreach 09/02/2022 Human care gap Reason Comments Consult Ventral hernia Specialty Diagnoses / Procedures Referred By Contac t Referred To Contact General Surgery Diagnoses Ventral hernia without obstruction or gangrene Procedures CONSULT TO GENERAL SURGERY OFFICE/OUTPATIENT [facility] MDM 60-74 MINUTES Flaca Fischer APRN.ADVANCED CLINICAL SPECIALIST [address] [place] [address] Referral ID Status Reason Start Date Expiration Date Visits Requested Visits Authorized [id number] Pending Review PCP Requested Referral 08/04/2022 08/04/2023 1 1 Reason Onset Date Comments Refill Request 09/10/2022 Reason Comments Follow Up Has scan on legs fol low up scheduled with Dr Saba arenas to get results. MRI of back scheduled is seeing Dr Nielsen for this. Reason Onset Date Comments Refill Request 09/24/2022 Reason Comments Patient Update Reason Onset Date Comments Refill Request 11/18/2022 Reason Comments Orders Reason Comments Recheck 3 month Reason Onset Date Comments Population Health Navigation Outreach 02/13/2023 [employer] Care Gaps Reason Onset Date Comments Refill Request 02/19/2023 Reason Onset Date Comments Refill Request 03/26/2023 Specialty Diagnoses / Procedures Referred By Contac t Referred To Contact US IMAGING Diagnoses Gallbladder mass Procedures US ABD RT UPPER QUADRANT US ABDOMINAL REAL TIME W/IMAGE LIMITED Sandy Braswell MD [address] [place] [address] [place] [address] Referral ID Status Reason Start Date Expiration Date V isits Requested Visits Authorized [id number] Closed Auto-Generate d Referral 01/31/2022 03/02/2023 [address] Specialty Diagnoses / Procedures Referred By Contac t Referred To Contact CT IMAGING Diagnoses Incisional hernia, without obstruction or gangrene Procedures CT ABD/PEL WO IVCON CT ABD & PELVIS W/O CONTRAST Adriel Solis MD [address] [place] [address] [place] [address] Referral ID Status Reason Start Date Expiration Date V isits Requested Visits Authorized [id number] Closed Auto-Generate d Referral 09/02/2022 10/02/2023 1 1 Reason Onset Date Comments Population Health Navigation Outreach 07/13/2023 [employer] Care Gaps Reason Onset Date Comments Refill Request 08/02/2023 Reason Comments Diabetic Eye Exam Type 1 IDDM Reason Comments Proliferative Diabetic Retinopathy Follo w Up Blood sugar was 105 Blurred Vision Right Eye 1 year Reason Comments Proliferative Diabetic Retinopathy Follo w Up Specialty Diagnoses / Procedures Referred By Yesika falcon Referred To Contact Ophthalmology / OPHTHALMOLOGY Diagnoses 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 PRP Procedures TREATMENT EXTENSIVE RETINOPATHY PHOTOCOAGULATION EST ADULT Dejuan Montalvo MD, PhD [address] [place] [address] Dejuan Montalvo MD, PhD [address] [place] [address] Referral ID Status Reason Start Date Expiration Date V isits Requested Visits Authorized [id number] Authorized 10/01/2023 04/10/2024 3 3 Reason Comments Posterior Capsule Opacification Evaluati on Specialty Diagnoses / Procedures Referred By Yesika falcon Referred To Contact Ophthalmology / OPHTHALMOLOGY Diagnoses Encounter for follow-up examination after completed treatment for conditions other than malignant neoplasm CONSULT PCO consult right eye Procedures OFFICE/OUTPATIENT ESTABLISHED SF MDM 10 MIN OFFICE/OUTPATIENT ESTABLISHED LOW MDM 20 MIN OFFICE/OUTPATIENT ESTABLISHED MOD MDM 30 MIN OFFICE/OUTPATIENT ESTABLISHED HIGH MDM 40 MIN EST ADULT Sandy Braswell MD [address] [place] [address] Darrian Christensen MD [address] [place] [address] Referral ID Status Reason Start Date Expiration Date V isits Requested Visits Authorized [id number] Authorized 10/13/2023 05/31/2024 1 99 Reason Comments Post-op (Ophthalmology) Right Eye S/P: y ag capsulotomy OD 11/11/23 Specialty Diagnoses / Procedures Referred By Yesika falcon Referred To Contact Optometry / OPHTHALMOLOGY Diagnoses Encounter for follow-up examination after completed treatment for conditions other than malignant neoplasm 1 WK FULL DILATE Procedures OFFICE/OUTPATIENT ESTABLISHED SF MDM 10 MIN OFFICE/OUTPATIENT ESTABLISHED LOW MDM 20 MIN OFFICE/OUTPATIENT ESTABLISHED MOD MDM 30 MIN OFFICE/OUTPATIENT ESTABLISHED HIGH MDM 40 MIN EST ADULT Sandy Braswell MD [address] [place] [address] Iliana Quan, OD [address] [place] [address] Referral ID Status Reason Start Date Expiration Date V isits Requested Visits Authorized [id number] Authorized 11/11/2023 05/31/2024 99 99 Reason Onset Date Comments Refill Request 12/09/2023 Reason Comments Yearly Exam Reason Onset Date Comments Refill Request 12/30/2023 Reason Comments Blood Pressure Reason Onset Date Comments Allied Health Visit 03/15/2024 Medication A dherence Outreach Reason Onset Date Comments Refill Request 03/28/2024 Reason Onset Date Comments Refill Request 06/17/2024 Reason Comments Medication Request Reason Comments 6 Month Exam Reason Onset Date Comments Refill Request 08/22/2024 Reason Comments Orders Reason Comments Discussion Discuss treatments f or osteoporsis Reason Onset Date Comments Refill Request 09/26/2024 Reason Comments Consult surgery on 11/01/24 at [place] Reason Comments Consult Feels she needs marina ia surgery, was recommended prior but had not quit smoking Reason Comments Appointment Post Op Post Op Reason Comments Post Op hernia Reason Onset Date Comments Refill Request 11/21/2024 Reason Onset Date Comments Refill Request 12/11/2024 Reason Comments Neurologic Problem Care Teams (unrecognized sec tion and content) Occupational Therapy Manager Relationship Specialty Start Date End Date Sandy Braswell MD [address] [place], [place] [id number] PCP - General Family Practice 01/27/22 Occupational Therapy Manager Relationship Specialty Start Date End Date Sandy Braswell MD [address] [place], [place] [id number] PCP - General Family Practice 01/27/22 Occupational Therapy Manager Relationship Specialty Start Date End Date Sandy Braswell MD [address] [place], [place] [id number] PCP - General Family Practice 01/27/22 Occupational Therapy Manager Relationship Specialty Start Date End Date Sandy Braswell MD [address] [facility] [place] [address] PCP - General Family Practice 01/27/22 Occupational Therapy Manager Relationship Specialty Start Date End Date Sandy Braswell MD [address] [facility] [place] [address] PCP - General Family Practice 01/27/22 Occupational Therapy Manager Relationship Specialty Start Date End Date Sandy Braswell MD [address] [facility] [place] [address] PCP - General Family Practice 01/27/22 Occupational Therapy Manager Relationship Specialty Start Date End Date Sandy Braswell MD [address] [facility] [place] [address] PCP - General Family Practice 01/27/22 Occupational Therapy Manager Relationship Specialty Start Date End Date Sandy Braswell MD [address] [facility] [place] [address] PCP - General Family Practice 01/27/22 Occupational Therapy Manager Relationship Specialty Start Date End Date Sandy Braswell MD [address] [facility] [place] [address] PCP - General Family Medicine 01/27/22 Occupational Therapy Manager Relationship Specialty Start Date End Date Sandy Braswell MD [address] [facility] [place] [address] PCP - General Family Medicine 01/27/22 Occupational Therapy Manager Relationship Specialty Start Date End Date Sandy Braswell MD [address] [facility] [place] [address] PCP - General Family Medicine 01/27/22 Occupational Therapy Manager Relationship Specialty Start Date End Date Sandy Braswell MD [address] [facility] [place] [address] PCP - General Family Medicine 01/27/22 Occupational Therapy Manager Relationship Specialty Start Date End Date Sandy Braswell MD [address] [facility] [place] [address] PCP - General Family Medicine 01/27/22 Occupational Therapy Manager Relationship Specialty Start Date End Date Sandy Braswell MD [address] [facility] [place] [address] PCP - General Family Medicine 01/27/22 Occupational Therapy Manager Relationship Specialty Start Date End Date Sandy Braswell MD [address] [facility] [place] [address] PCP - General Family Medicine 01/27/22 Occupational Therapy Manager Relationship Specialty Start Date End Date Sandy Braswell MD [address] [facility] [place] [address] PCP - General Family Medicine 01/27/22 Occupational Therapy Manager Relationship Specialty Start Date End Date Sandy Braswell MD [address] [facility] [place] [address] PCP - General Family Medicine 01/27/22 Occupational Therapy Manager Relationship Specialty Start Date End Date Sandy Braswell MD [address] [facility] [place] [address] PCP - General Family Medicine 01/27/22 Occupational Therapy Manager Relationship Specialty Start Date End Date Sandy Braswell MD [address] [facility] [place] [address] PCP - General Family Medicine 01/27/22 Team Status: Active Member Role Status Dates Dr. Gian Jones MD Family Provider Active Dr. Sandy Braswell MD Primary Care Provider Active Team Status: Inactive Member Role Status Dates Dr. Gian Jones MD Referring Provider Active Dr. Angel Palumbo MD Attending Provider Active Dr. Sandy Braswell MD Primary Care Provider Active Team Status: Inactive Member Role Status Dates Dr. Sandy Braswell MD Primary Care Provider, Referring Provider Active LAURA Kaba Attending Provider Active Team Status: Active Member Role Status Dates Dr. Sandy Braswell MD Primary Care Provider Active Carolann Sullivan Attending Provider Active Team Status: Inactive Member Role Status Dates Dr. Sandy Braswell MD Primary Care Provider Active LAURA Kaba Attending Provider, Referring Pr ruben Active Occupational Therapy Manager Relationship Specialty Start Date End Date Sandy Braswell MD [address] [facility] [place] [address] PCP - General Family Medicine 01/27/22 Team Status: Inactive Member Role Status Dates Dr. Sandy Braswell MD Primary Care Provider Active Dr. Mira Wood MD Attending Provider Active LAURA Kaba Referring Provider Active Team Status: Inactive Member Role Status Dates Dr. Sandy Braswell MD Primary Care Provider, Referring Provider Active Dr. Henry Walter MD Attending Provider Active Team Status: Inactive Member Role Status Dates Dr. Sandy Braswell MD Primary Care Provider Active Venessa WOLFE PA Attending Provider, Referrin g Provider Active Occupational Therapy Manager Relationship Specialty Start Date End Date Sandy Braswell MD [address] [place] [address] PCP - General Family Medicine 01/27/22 Occupational Therapy Manager Relationship Specialty Start Date End Date Sandy Braswell MD [address] [place] [address] PCP - General Family Medicine 01/27/22 Occupational Therapy Manager Relationship Specialty Start Date End Date Sandy Braswell MD [address] [place] [address] PCP - General Family Medicine 01/27/22 Occupational Therapy Manager Relationship Specialty Start Date End Date Sandy Braswell MD [address] [facility] [place] [address] PCP - General Family Medicine 01/27/22 Occupational Therapy Manager Relationship Specialty Start Date End Date Sandy Braswell MD [address] [facility] [place] [address] PCP - General Family Medicine 01/27/22 Team Status: Inactive Member Role Status Dates Dr. Sandy Braswell MD Primary Care Provider, Referring Provider Active Dr. Thony Nielsen DO Attending Provider Active Team Status: Inactive Member Role Status Dates Dr. Sandy Braswell MD Primary Care Provider Active Dr. Yunier Carpenter MD Attending Provider Active Team Status: Inactive Member Role Status Dates Dr. Sandy Braswell MD Primary Care Provider Active YANETH Costa Attending Provider, Referring Provider Active Team Status: Inactive Member Role Status Dates Dr. Sandy Braswell MD Primary Care Provider Active Dr. Thony Nielsen DO Attending Provider, Referring P rovider Active Itzel Dominguez NP-C Other Provider Active Occupational Therapy Manager Relationship Specialty Start Date End Date Sandy Braswell MD [address] [place], [place] [address] PCP - General Family Medicine 01/27/22 Occupational Therapy Manager Relationship Specialty Start Date End Date Sandy Braswell MD [address] [place], [place] [id number] PCP - General Family Medicine 01/27/22 Team Status: Inactive Member Role Status Dates Dr. Sandy Braswell MD Referring Provider Active Dr. Henry Walter MD Attending Provider Active Team Status: Active Member Role Status Dates Dr. Sandy Braswell MD Primary Care Provider Active Dr. Henry Walter MD Attending Provider, Referring Provider, Other Provider Active Team Status: Active Member Role Status Dates Dr. Sandy Braswell MD Primary Care Provider Active Dr. Henry Walter MD Attending Provider Active Team Status: Inactive Member Role Status Dates Dr. Sandy Braswell MD Primary Care Provider Active Dr. Henry Walter MD Attending Provider, Referring Pro vider Active Team Status: Inactive Member Role Status Dates Dr. Henry Walter MD Attending Provider, Referring Pro vider Active Dr. Sandy Braswell MD Primary Care Provider Active Team Status: Inactive Member Role Status Dates Dr. Sandy Braswell MD Primary Care Provider, Referring Provider Active Yael Joe NP, CAPSULE MACHINE OPERATOR-C Attending Provider Active Team Status: Inactive Member Role Status Dates Dr. Sandy Braswell MD Primary Care Provider, Referring Provider Active Dr. Mira Wood MD Attending Provider Active Team Status: Inactive Member Role Status Dates Dr. Sandy Braswell MD Primary Care Provider Active Yael Joe CAPSULE MACHINE OPERATOR, CAPSULE MACHINE OPERATOR-C Attending Provider, Referring Provider Active Occupational Therapy Manager Relationship Specialty Start Date End Date Sandy Braswell MD [address] [place], [place] [address] PCP - General Family Medicine 01/27/22 Occupational Therapy Manager Relationship Specialty Start Date End Date Sandy Braswell MD [address] [place], [place] [address] PCP - General Family Medicine 01/27/22 Occupational Therapy Manager Relationship Specialty Start Date End Date Sandy Braswell MD [address] [place], [place] [address] PCP - General Family Medicine 01/27/22 Team Status: Active Member Role Status Dates Dr. Sandy Braswell MD Primary Care Provider Active Dr. Henry Walter MD Attending Provider, Referring Pro vider Active Team Status: Active Member Role Status Dates Dr. Sandy Braswell MD Primary Care Provider Active Dr. Mira Wood MD Attending Provider Active Team Status: Active Member Role Status Dates Dr. Sandy Braswell MD Primary Care Provider Active Daryl Greer CAPSULE MACHINE OPERATOR, CAPSULE MACHINE OPERATOR-C Attending Provider Active Team Status: Inactive Member Role Status Dates Dr. Sandy Braswell MD Primary Care Provider Active Dr. Mira Wood MD Attending Provider, Referring Pr ovider Active Occupational Therapy Manager Relationship Specialty Start Date End Date Sandy Braswell MD [address] [place] [address] PCP - General Family Medicine 01/27/22 Occupational Therapy Manager Relationship Specialty Start Date End Date Sandy Braswell MD [address] [place], [place] [address] PCP - General Family Medicine 01/27/22 Occupational Therapy Manager Relationship Specialty Start Date End Date Sandy Braswell MD [address] [place] [address] PCP - General Family Medicine 01/27/22 Occupational Therapy Manager Relationship Specialty Start Date End Date Sandy Braswell MD [address] [place] [address] PCP - General Family Medicine 01/27/22 Team Status: Inactive Member Role Status Dates Dr. Sandy Braswell MD Primary Care Provider Active Dr. Vitaly Villafuerte MD Attending Provider, Referrin g Provider Active Team Status: Active Member Role Status Dates Dr. Sandy Braswell MD Primary Care Provider Active Dr. Vitaly Villafuerte MD Attending Provider Active Team Status: Inactive Member Role Status Dates Dr. Sandy Braswell MD Primary Care Provider Active Dr. Rudy Hollis MD Attending Provider, Referri ng Provider Active Team Status: Inactive Member Role Status Dates Dr. Sandy Braswell MD Primary Care Provider Active Dr. Vitaly Villafuerte MD Attending Provider Active Occupational Therapy Manager Relationship Specialty Start Date End Date Sandy Braswell MD [address] [place] [address] PCP - General Family Medicine 01/27/22 Occupational Therapy Manager Relationship Specialty Start Date End Date Sandy Braswell MD [address] [place], [place] [address] PCP - General Family Medicine 01/27/22 Occupational Therapy Manager Relationship Specialty Start Date End Date Sandy Braswell MD [address] [place], [place] [address] PCP - General Family Medicine 01/27/22 Occupational Therapy Manager Relationship Specialty Start Date End Date Sandy Braswell MD [address] [place] [address] PCP - General Family Medicine 01/27/22 Hannah Rivera OD [address] [place] [address] Optometry 09/03/23 Occupational Therapy Manager Relationship Specialty Start Date End Date Sandy Braswell MD [address] [facility] [place] [address] PCP - General Family Medicine 01/27/22 Hannah Rivera, OD [address] [place] [address] Optometry 09/03/23 Occupational Therapy Manager Relationship Specialty Start Date End Date Sandy Braswell MD [address] [place] [address] PCP - General Family Medicine 01/27/22 Hannah Rivera OD [address] [place] [address] Optometry 09/03/23 Occupational Therapy Manager Relationship Specialty Start Date End Date Sandy Braswell MD [address] [place] [address] PCP - General Family Medicine 01/27/22 Hannah Rivera, OD [address] [place] [address] Optometry 09/03/23 Occupational Therapy Manager Relationship Specialty Start Date End Date Sandy Braswell MD [address] [place] [address] PCP - General Family Medicine 01/27/22 Hannah Rivera OD [address] [place] [address] Optometry 09/03/23 Occupational Therapy Manager Relationship Specialty Start Date End Date Sandy Braswell MD [address] [place] [address] PCP - General Family Medicine 01/27/22 Hannah Rviera OD [address] [place] [address] Optometry 09/03/23 Occupational Therapy Manager Relationship Specialty Start Date End Date Sandy Braswell MD [address] [place] [address] PCP - General Family Medicine 01/27/22 Hannah Rivera OD [address] [place] [address] Optometry 09/03/23 Occupational Therapy Manager Relationship Specialty Start Date End Date Sandy Braswell MD [address] [place] [address] PCP - General Family Medicine 01/27/22 Hannah Rivera OD [address] [place] [address] Optometry 09/03/23 Occupational Therapy Manager Relationship Specialty Start Date End Date Sandy Braswell MD [address] [place] [address] PCP - General Family Medicine 01/27/22 Hannah Rivera OD [address] [facility] [place] [address] Optometry 09/03/23 Occupational Therapy Manager Relationship Specialty Start Date End Date Sandy Braswell MD [address] [place] [address] PCP - General Family Medicine 01/27/22 Occupational Therapy Manager Relationship Specialty Start Date End Date Sandy Braswell MD [address] [place] [address] PCP - General Family Medicine 01/27/22 Hannah Rivera OD [address] [place] [address] Optometry 09/03/23 Occupational Therapy Manager Relationship Specialty Start Date End Date Sandy Braswell MD [address] [place] [address] PCP - General Family Medicine 01/27/22 Hannah Rivera OD [address] [place] [address] Optometry 09/03/23 Occupational Therapy Manager Relationship Specialty Start Date End Date Sandy Braswell MD [address] [place] [address] PCP - General Family Medicine 01/27/22 Hannah Rivera, DOM [address] [place] [address] Optometry 09/03/23 Occupational Therapy Manager Relationship Specialty Start Date End Date Sandy Braswell MD [address] [place] [address] PCP - General Family Medicine 01/27/22 Hannah Rivera OD [address] [place] [address] Optometry 09/03/23 Occupational Therapy Manager Relationship Specialty Start Date End Date Sandy Braswell MD [address] [place] [address] PCP - General Family Medicine 01/27/22 Hannah Rivera OD [address] [place] [address] [address] Optometry 09/03/23 Flaca Fischer APRN.ADVANCED CLINICAL SPECIALIST [address] [place] [address] Neurology Manager Family Medicine 05/09/24 Ruma Valles APRN.ADVANCED CLINICAL SPECIALIST [address] [place] [address] Neurology Manager Family Medicine 05/09/24 Occupational Therapy Manager Relationship Specialty Start Date End Date Sandy Braswell MD [address] [place] [address] PCP - General Family Medicine 01/27/22 Hannah Rivera OD [address] [place] [address] Optometry 09/03/23 Flaca Fsicher APRN.ADVANCED CLINICAL SPECIALIST [address] [place] [address] [facility] 05/09/24 Ruma Valles APRN.ADVANCED CLINICAL SPECIALIST [address] [facility] [place] [address] [facility] 05/09/24 Occupational Therapy Manager Relationship Specialty Start Date End Date Sandy Braswell MD [address] [facility] [place] [address] PCP - General [facility] 01/27/22 Hannah Rivera, OD [address] [place] [address] Optometry 09/03/23 Flaca Fischer APRN.ADVANCED CLINICAL SPECIALIST [address] [place] [address] [facility] 05/09/24 Ruma Valles APRN.ADVANCED CLINICAL SPECIALIST [address] [place] [address] [facility] 05/09/24 Occupational Therapy Manager Relationship Specialty Start Date End Date Sandy Braswell MD [address] [place] [address] PCP - General [facility] 01/27/22 Hannah Rivera, OD [address] [place] [address] Optometry 09/03/23 Flaca Fischer APRN.ADVANCED CLINICAL SPECIALIST [address] [place] [address] [facility] 05/09/24 Ruma Valles APRN.ADVANCED CLINICAL SPECIALIST [address] [place] [address] [facility] Occupational Therapy Manager Relationship Specialty Start Date End Date Sandy Braswell MD [address] [place] [place] [address] PCP - General [facility] 01/27/22 Hannah Rivera OD [address] [place] [address] Optometry 09/03/23 Flaca Fischer APRN.ADVANCED CLINICAL SPECIALIST [address] [place] [address] [facility] Ruma Valles APRN.ADVANCED CLINICAL SPECIALIST [address] [place] [address] [facility] 05/09/24 Occupational Therapy Manager Relationship Specialty Start Date End Date Sandy Braswell MD [address] [place] [place] [address] PCP - General [facility] Medicine 01/27/22 Hannah Rivera OD [address] [place] [address] Optometry 09/03/23 Flaca Fischer APRN.ADVANCED CLINICAL SPECIALIST [address] [place] [address] [facility] 05/09/24 Ruma Valles APRN.ADVANCED CLINICAL SPECIALIST [address] [place] [address] [facility] 05/09/24 Occupational Therapy Manager Relationship Specialty Start Date End Date Sandy Braswell MD [address] [place] [address] PCP - General Family Medicine 01/27/22 Hannah Rivera OD [address] [place] [address] Optometry 09/03/23 Flaca Fischer APRN.ADVANCED CLINICAL SPECIALIST [address] [place] [address] [facility] 05/09/24 Ruma Valles APRN.ADVANCED CLINICAL SPECIALIST [address] [place] [address] [facility] 05/09/24 Team Status: Active Member Role Status Dates Dr. Sandy Braswell MD Primary Care Provider Active Team Status: Inactive Member Role Status Dates Dr. Sandy Braswell MD Primary Care Provider Active Start: June 13, 2024 End: June 13, 2024 Dr. Sandy Braswell MD Referring Provider Active Start: June 13, 2024 End: June 13, 2024 LAURA Kaba Attending Provider Active Start: June 13, 2024 End: June 13, 2024 Team Status: Inactive Member Role Status Dates Dr. Sandy Braswell MD Primary Care Provider Active Start: June 15, 2024 End: June 15, 2024 LAURA Kaba Attending Provider Active Start: June 15, 2024 End: June 15, 2024 LAURA Kaba Referring Provider Active Start: June 15, 2024 End: June 15, 2024 Team Status: Inactive Member Role Status Dates Dr. Sandy Braswell MD Primary Care Provider Active Start: August 31, 2024 End: August 31, 2024 Dr. Sandy Braswell MD Attending Provider Active Start: August 31, 2024 End: August 31, 2024 Dr. Sandy Braswell MD Referring Provider Active Start: August 31, 2024 End: August 31, 2024 Occupational Therapy Manager Relationship Specialty Start Date End Date Sandy Braswell MD [address] [facility] [place] [address] PCP - General Family Medicine 01/27/22 Hannah Rivera OD [address] [facility] [place] [address] Optometry 09/03/23 Flaca Fischer APRN.ADVANCED CLINICAL SPECIALIST [address] [place] [address] Neurology Manager Family Medicine 05/09/24 Ruma Valles APRN.ADVANCED CLINICAL SPECIALIST [address] [facility] [place] [address] Neurology Manager Family Medicine 05/09/24 Occupational Therapy Manager Relationship Specialty Start Date End Date Sandy Braswell MD [address] [facility] [place] [address] PCP - General Family Medicine 01/27/22 Hannah Rivera OD [address] [facility] [place] [address] Optometry 09/03/23 Flaca Fischer APRN.ADVANCED CLINICAL SPECIALIST [address] [place] [address] Neurology Manager Family [facility] 05/09/24 Ruma Valles APRN.ADVANCED CLINICAL SPECIALIST [address] [facility] [place] [address] Neurology Manager [facility] 05/09/24 Occupational Therapy Manager Relationship Specialty Start Date End Date Sandy Braswell MD [address] [facility] [place] [id number] PCP - General Family Medicine 01/27/22 Hannah Rivera, OD [address] [address] Optometry 09/03/23 Flaca Fischer APRN.ADVANCED CLINICAL SPECIALIST [address] [place] [address] [facility] 05/[facility]24 Ruma Valles APRN.ADVANCED CLINICAL SPECIALIST [address] [place] [address] [facility] 05/09/24 Occupational Therapy Manager Relationship Specialty Start Date End Date Sandy Braswell MD [address] [facility] [place] [address] PCP - General Family Medicine 01/27/22 Hannah Rivera OD [address] [place] [address] Optometry 09/03/23 Flaca Fischer SLOT FLOORPERSON.ADVANCED CLINICAL SPECIALIST [address] [place] [address] [facility] 05/09/24 Ruma Valles APRN.ADVANCED CLINICAL SPECIALIST [address] [facility] [place] [address] [facility]24 Team Status: Inactive Member Role Status Dates Dr. Sandy Braswell MD Primary Care Provider Active Start: September 12, 2024 End: September 12, 2024 Dr. Sandy Braswell MD Referring Provider Active Start: September 12, 2024 End: September 12, 2024 LAURA Kaba Attending Provider Active Start: September 12, 2024 End: September 12, 2024 Team Status: Inactive Member Role Status Dates Dr. Sandy Braswell MD Primary Care Provider Active Start: September 13, 2024 End: September 13, 2024 Yael Joe NP, CAPSULE MACHINE OPERATOR-C Attending Provider Active Start: September 13, 2024 End: September 13, 2024 Yael Joe NP, CAPSULE MACHINE OPERATOR-C Referring Provider Active Start: September 13, 2024 End: September 13, 2024 Team Status: Inactive Member Role Status Dates Dr. Sandy Braswell MD Primary Care Provider Active Start: September 22, 2024 End: September 22, 2024 Dr. Sandy Braswell MD Referring Provider Active Start: September 22, 2024 End: September 22, 2024 Janessa Lu NP, CAPSULE MACHINE OPERATOR-C Attending Provider Active Start: September 22, 2024 End: September 22, 2024 Team Status: Inactive Member Role Status Dates Dr. Sandy Braswell MD Primary Care Provider Active Start: October 19, 2024 End: October 19, 2024 Dr. Sandy Braswell MD Referring Provider Active Start: October 19, 2024 End: October 19, 2024 YANETH Hawkins Attending Provider Active Star t: October 19, 2024 End: October 19, 2024 Team Status: Inactive Member Role Status Dates Dr. Sandy Braswell MD Primary Care Provider Active Start: October 25, 2024 End: October 25, 2024 LAURA Kaba Attending Provider Active Start: October 25, 2024 End: October 25, 2024 LAURA Kaba Referring Provider Active Start: October 25, 2024 End: October 25, 2024 Team Status: Inactive Member Role Status Dates Dr. Sandy Braswell MD Primary Care Provider Active Start: October 31, 2024 End: October 31, 2024 Dr. Sandy Braswell MD Referring Provider Active Start: October 31, 2024 End: October 31, 2024 LAURA Kaba Attending Provider Active Start: October 31, 2024 End: October 31, 2024 Occupational Therapy Manager Relationship Specialty Start Date End Date Sandy Braswell MD [address] [place] [address] PCP - General Family Medicine 01/27/22 Hannah Rivera OD [address] [place] [address] Optometry 09/03/23 Flaca Fischer APRN.ADVANCED CLINICAL SPECIALIST [address] [place] [address] Neurology Manager Family Medicine 05/09/24 Ruma Valles APRN.ADVANCED CLINICAL SPECIALIST [address] [place] [address] Neurology Manager Family Medicine 05/09/24 Occupational Therapy Manager Relationship Specialty Start Date End Date Sandy Braswell MD [address] [facility] [place] [address] PCP - General Family Medicine 01/27/22 Hannah Rivera OD [address] [place] [address] Optometry 09/03/23 Flaca Fischer, SLOT FLOORPERSON.ADVANCED CLINICAL SPECIALIST [address] [place] [address] Neurology Manager Family Medicine 05/09/24 Ruma Valles APRN.ADVANCED CLINICAL SPECIALIST [address] [facility] [place] [address] Neurology Manager Family Medicine 05/09/24 Occupational Therapy Manager Relationship Specialty Start Date End Date Sandy Braswell MD [address] [facility] [place] [address] PCP - General Family Medicine 01/27/22 Hannah Rivera, OD [address] [place] [address] Optometry 09/03/23 Flaca Fischer APRN.ADVANCED CLINICAL SPECIALIST [address] [place] [address] Neurology Manager Family Medicine 05/09/24 Ruma Valles APRN.ADVANCED CLINICAL SPECIALIST [address] [facility] [place] [address] Neurology Manager Family Medicine 05/09/24 Occupational Therapy Manager Relationship Specialty Start Date End Date Sandy Braswell MD [address] [facility] [place] [address] PCP - General Family Medicine 01/27/22 Hannah Rivera, OD [address] [place] [address] Optometry 09/03/23 Flaca Fischer APRN.ADVANCED CLINICAL SPECIALIST [address] [place] [address] Neurology Manager Family Medicine 05/09/24 Ruma Valles APRN.ADVANCED CLINICAL SPECIALIST [address] [facility] [place] [address] Neurology Manager Family Medicine 05/09/24 Occupational Therapy Manager Relationship Specialty Start Date End Date Sandy Braswell MD [address] [facility] [place], [place] [address] PCP - General Family Medicine 01/27/22 Hannah Rivera OD [address] [facility] [place] [address] Optometry 09/03/23 Flaca Fischer APRN.ADVANCED CLINICAL SPECIALIST [address] [place] [address] Neurology Manager Family Medicine 05/09/24 Ruma Valles APRN.ADVANCED CLINICAL SPECIALIST [address] [facility] [place], [place] [address] Neurology Manager Family [facility] 05/09/24 Team Status: Active Member Role/Relationship Status Dates Dr. Sandy Braswell MD Primary Care Provider Active Team Status: Inactive Member Role/Relationship Status Dates Dr. Sandy Braswell MD Primary Care Provider Active Start: August 31, 2024 End: August 31, 2024 Dr. Sandy Braswell MD Attending Provider Active Start: August 31, 2024 End: August 31, 2024 Dr. Sandy Braswell MD Referring Provider Active Start: August 31, 2024 End: August 31, 2024 Team Status: Inactive Member Role/Relationship Status Dates Dr. Sandy Braswell MD Primary Care Provider Active Start: September 12, 2024 End: September 12, 2024 Dr. Sandy Braswell MD Referring Provider Active Start: September 12, 2024 End: September 12, 2024 LAURA Kaba Attending Provider Active Start: September 12, 2024 End: September 12, 2024 Team Status: Inactive Member Role/Relationship Status Dates Dr. Sandy Braswell MD Primary Care Provider Active Start: September 13, 2024 End: September 13, 2024 Yael Joe NP, CAPSULE MACHINE OPERATOR-C Attending Provider Active Start: September 13, 2024 End: September 13, 2024 Yeal Joe NP, NP-C Referring Provider Active Start: September 13, 2024 End: September 13, 2024 Team Status: Inactive Member Role/Relationship Status Dates Dr. Sandy Braswell MD Primary Care Provider Active Start: September 13, 2024 End: September 13, 2024 Yael Joe CAPSULE MACHINE OPERATOR, CAPSULE MACHINE OPERATOR-C Attending Provider Active Start: September 13, 2024 End: September 13, 2024 Yael Joe CAPSULE MACHINE OPERATOR, CAPSULE MACHINE OPERATOR-C Referring Provider Active Start: September 13, 2024 End: September 13, 2024 Team Status: Inactive Member Role/Relationship Status Dates Dr. Sandy Braswell MD Primary Care Provider Active Start: September 22, 2024 End: September 22, 2024 Dr. Sandy Braswell MD Referring Provider Active Start: September 22, 2024 End: September 22, 2024 Janessa Lu NP, CAPSULE MACHINE OPERATOR-C Attending Provider Active Start: September 22, 2024 End: September 22, 2024 Team Status: Inactive Member Role/Relationship Status Dates Dr. Sandy Braswell MD Primary Care Provider Active Start: October 19, 2024 End: October 19, 2024 Dr. Sandy Braswell MD Referring Provider Active Start: October 19, 2024 End: October 19, 2024 YANETH Hawkins Attending Provider Active Star t: October 19, 2024 End: October 19, 2024 Team Status: Inactive Member Role/Relationship Status Dates Dr. Sandy Braswell MD Primary Care Provider Active Start: October 25, 2024 End: October 25, 2024 LAURA Kaba Attending Provider Active Start: October 25, 2024 End: October 25, 2024 LAURA Kaba Referring Provider Active Start: October 25, 2024 End: October 25, 2024 Team Status: Inactive Member Role/Relationship Status Dates Dr. Sandy Braswell MD Primary Care Provider Active Start: October 31, 2024 End: October 31, 2024 Dr. Sandy Braswell MD Referring Provider Active Start: October 31, 2024 End: October 31, 2024 LAURA Kaba Attending Provider Active Start: October 31, 2024 End: October 31, 2024 Team Status: Inactive Member Role/Relationship Status Dates Dr. Sandy Braswell MD Primary Care Provider Active Start: December 12, 2024 End: December 12, 2024 Dr. Sandy Braswell MD Referring Provider Active Start: December 12, 2024 End: December 12, 2024 Itzel Dominguez NP-C Attending Provider Active Start: December 12, 2024 End: December 12, 2024 Occupational Therapy Manager Relationship Specialty Start Date End Date Sandy Braswell MD [address] [place], [place] [address] PCP - General Family Medicine 01/27/22 Hannah Rivera OD [address] [place] [address] Optometry 09/03/23 Flaca Fischer APRN.ADVANCED CLINICAL SPECIALIST [address] [place], [place] [address] Neurology Manager Family [facility] 05/09/24 Ruma Valles APRN.ADVANCED CLINICAL SPECIALIST [address] [place], [place] [address] Neurology Manager Family [facility] 05/09/24 Goals (unrecognized section and content) Goals may be documented in a n alternate sectionGoals may be documented in an alternate sectionGoals may be documented in an alternate sectionGoals may be documented in an alternate sectionGoals may be documented in an alternate sectionGoals may be documented in an alternate sectionGoals may be documented in an alternate sectionGoals may be documented in an alternate sectionGoals may be documented in an alternate sectionGoals may be documented in an alternate sectionGoals may be documented in an alternate sectionGoals may be documented in an alternate sectionGoals may be documented in an alternate sectionGoals may be documented in an alternate section Active Administered Medications - up to 3 most recent administrations Administered Medications (un recognized section and content) Medication Order MAR Action Action Date Dose Rate Site PHENYLephrine 2.5 % 1 Drop (AK-DILATE, BHUPENDRA-SYNEPHRINE) 1 Drop, BOTH EYES, DIRECTED, Starting on Emily 08/13/23 at 1530, Until Thu08/14/23 at 0329, Administer for dilation PROTECT FROM LIGHT Given 08/13/2023 3:16 PM EDT 1 Drop proparacaine 0.5 % 1 Drop (ALCAINE) 1 Drop, BOTH EYES, DIRECTED, Starting on Thu08/13/23 at 1530, Until Thu08/14/23 at 0329, Administer for pneumo tonometry, tonopen tonometry, or pachymetry. In the event of a proparacaine shortage, administer tetracaine 0.5% ophthalmic drops 1 drop in the left eye as directed for pneumo tonometry, tonopen tonometry, or pachymetry Given 08/13/2023 3:16 PM EDT 1 Drop tropicamide 1 % 1 Drop (MYDRIACYL) 1 Drop, BOTH EYES, DIRECTED, Starting on Thu08/13/23 at 1530, Until Thu08/14/23 at 0329, Administer for dilation Given 08/13/2023 3:16 PM EDT 1 Drop Inactive Administered Medications - up to 3 most recent administrations Medication Order MAR Action Action Date Dose Rate Site fluorescein-benoxinate 0.3-0.4 % 1 Drop (FLURESS) 1 Drop, BOTH EYES, DIRECTED, Starting on Thu09/03/23 at 1300, Until Thu09/04/23 at 0059, Administer for applanation tonometry. In the event of a Fluress shortage, administer 1 drop of Ramsay-Fluor into both eyes as directed for applanation tonometry., OPHT CLINIC MED ORDERS Given 09/03/2023 1:00 PM EDT 1 Drop PHENYLephrine 2.5 % 1 Drop (AK-DILATE, BHUPENDRA-SYNEPHRINE) 1 Drop, BOTH EYES, DIRECTED, Starting on Thu09/03/23 at 1300, Until Thu09/04/23 at 0059, Administer for dilation PROTECT FROM LIGHT, OPHT CLINIC MED ORDERS Given 09/03/2023 1:00 PM EDT 1 Drop proparacaine 0.5 % 1 Drop (ALCAINE) 1 Drop, BOTH EYES, DIRECTED, Starting on Thu09/03/23 at 1300, Until Thu09/04/23 at 0059, Administer for pneumo tonometry, tonopen tonometry, or pachymetry. In the event of a proparacaine shortage, administer 1 drop of tetracaine 0.5% ophthalmic drops into both eyes as directed for pneumo tonometry, tonopen tonometry, or pachymetry, OPHT CLINIC MED ORDERS Given 09/03/2023 1:00 PM EDT 1 Drop tropicamide 1 % 1 Drop (MYDRIACYL) 1 Drop, BOTH EYES, DIRECTED, Starting on Emily 09/03/23 at 1300, Until Thu09/04/23 at 0059, Administer for dilation, OPHT CLINIC MED ORDERS Given 09/03/2023 1:00 PM EDT 1 Drop INFORMATION SOURCE (unrecogn ized section and content) DATE CREATED AUTHOR 03/24/2024 [facility] DATE CREATED AUTHOR AUTHOR'S ORGANIZ ATION 11/04/2024 [facility] DATE CREATED AUTHOR AUTHOR'S ORGANIZ ATION 12/10/2024 [facility] DATE CREATED AUTHOR AUTHOR'S ORGANIZ ATION 12/21/2024 [facility] FOR RECORDS PERTAINING TO PATIENTS WHO ARE OR HAVE BEEN ENROLLED IN A CHEMICAL DEPENDENCY/SUBSTANCEABUSE PROGRAM, SOME INFORMATION MAY BE OMITTED. This clinical summary was aggregated from multiple sources. Caution should be exercised in using it in the provision of clinical care. This summary normalizes information from multiple sources, and as a consequence, information in this document may materially change the coding, format and clinical context of patient data. In addition, data may be omitted in some cases. CLINICAL DECISIONS SHOULD BE BASED ON THE PRIMARY CLINICAL RECORDS. [facility]. provides no warranty or guarantee of the accuracy or completeness of information in this document.
== END | disposition home or self-care (01) ==
PROVIDERS: PCP Family Medicine; Referring Provider Nurse Practitioner Gerontology; Visit Provider Nurse Practitioner Gerontology
DX: M89.8X8 Other specified disorders of bone, other site (principal); Z95.1 Presence of aortocoronary bypass graft
CPT/HCPCS: 71046

== ENCOUNTER → 2025-01-03 | Outpatient (CLI) | payer MEDICARE, SELFPAY ==
--- NOTE | 2025-01-03 13:42 | ART_ITS ---
Reason For Study Reason For Study: PVD Procedure A bilateral lower extremity continuous wave Doppler with analog waveform analysis,segmental pressures,and ankle brachial indexes with exercise. PT walked 2:30 minutes @ a 5% incline @1.5 MPH. PT experienced low back and bilateral hip pain. Left Segmental Pressures Left brachial= 112mmHg. Left low thigh = 174mmHg. Left calf = 104mmHg. Left posterior tibial artery = 103mmHg. Left dorsalis pedis artery = 130mmHg. Left digit = 118 mmHg. The left posterior tibial artery waveforms are monophasic. The left dorsalis pedis waveforms are monophasic. Right Segmental Pressures Right brachial= 110mmHg. Right low thigh = 132mmHg. Right posterior tibial artery = 96mmHg. Right dorsalis pedis artery = 96mmHg. Right digit = 121 mmHg. The right posterior tibial artery waveforms are biphasic. The right dorsalis pedis waveforms are biphasic. Indices The right resting ankle brachial index is 0.86. The right ankle brachial index by the posterior tibial artery is 0.86. The right ankle brachial index by the dorsalis pedis is 0.86. The right digital- brachial index is 1.08. The right post exercise ankle brachial index is 0.47. The left resting ankle brachial index is 1.16. The left ankle brachial index by the posterior tibial artery is 0.92. The left ankle brachial index by the dorsalis pedis is 1.16. The left digital- brachial index is 1.05. The left post exercise ankle brachial index is 0.73. VL/Lower Ext Art Exam w/ Exercise Interpretation Summary Right MARY 0.86, moderate arterial insufficiency. Doppler/PVR waveforms and segm ental pressures reveal distal SFA/popliteal disease. Right lower extremity with abnormal response to exercise and post exercise MARY in the severe category. Left MARY 1.16, normal. TBI and Doppler/PVR waveforms of the left leg normal at rest. Left lower extremity with abnormal response to exercise and post exercise MARY i n the moderate category. Ordering Physician: Venessa Patino Referring Physician: SANDY BRASWELL MD Performed By: Mildred Cortez RVT, RDCS
== END | disposition home or self-care (01) ==
LOC: CVS 13:42
PROVIDERS: PCP Family Medicine; Referring Provider Physician Assistant; Visit Provider Physician Assistant
DX: I73.9 Peripheral vascular disease, unspecified (principal)
CPT/HCPCS: 93924

== ENCOUNTER → 2025-01-26 | Outpatient (CLI) | payer MEDICARE, SELFPAY ==
[2025-01-26 16:58] LABS: Anion Gap 10 (5-15); BUN 24 mg/dL (4-19); BUN/Creat Ratio 19.9 RATIO (10-20); Calcium,Total 9.2 mg/dL (7.6-11.0); Carbon Dioxide 25.7 mmol/L (21.0-32.0); Chloride 103 mmol/L (98-108); Glucose 144 mg/dL (70-99); Potassium 4.3 mmol/L (3.3-5.1)
[2025-01-26 17:04] LABS: Creatinine, Urine (random) 84.30 mg/dL (28.00-217.00); Protein, Urine (Random) 10.4 mg/dL (0.0-12.0); Protein:Creat Ratio 123 mg/g CRE (0-200)
== END | disposition home or self-care (01) ==
LOC: MTLAB 13:27
PROVIDERS: PCP Family Medicine; Referring Provider Internal Medicine Nephrology; Visit Provider Internal Medicine Nephrology
DX: R80.9 Proteinuria, unspecified (principal)
CPT/HCPCS: 36415; 80048; 82570; 84156

== ENCOUNTER → 2025-01-27 | Outpatient (CLI) | payer MEDICARE, SELFPAY ==
--- NOTE | 2025-01-27 13:40 | CT_ITS ---
PROCEDURE: CTA ABD W/RUNOFF W/WO CONTRAST 01/27/2025 REASON FOR EXAM: B/L ILIAC STENTS, CLAUDICATION TECHNIQUE: Procedure Code: [id number] Modality: CT Procedure: CTA ABD W/RUNOFF W/WO CONTRAST One or more dose reduction techniques were used (e.g., Automated exposure control, adjustment of the mA and/or kV according to patient size, use of iterative reconstruction technique). Multiplanar Sagittal and Coronal images were obtained. Three-dimensional reconstructions CONTRAST: Isovue 370 VOLUME: 75 mL RADIATION DOSE SUMMARY: CTDlvol: 20 mGy DLP: 974 mGycm COMPARISON: 09/05/2022 FINDINGS: Inspection of the soft tissues demonstrates normal liver. Normal spleen. Normal adrenal glands. Indeterminate left renal lesion measures 31 Hounsfield units. Normal appearance of the pancreas. Incidental gallstones. No bowel obstruction. No free air or free fluid. No lower thoracic aortic aneurysm. Patent celiac artery, superior mesenteric artery and renal arteries. Patent inferior mesenteric artery. Calcified plaque in both common carotid arteries and external carotid arteries. Patent deep femoral and superficial femoral arteries. Both superficial femoral arteries demonstrate scattered calcified plaque with at least moderate areas of bilateral stenosis. Bilateral popliteal artery patency. Three-vessel runoff below each knee. CT/CTA Abd w/Runoff W/WO Contrast IMPRESSION: 1. Indeterminate left renal lesion which is smaller than the prior study and pr obably represents a complex cyst. 2. Scattered atherosclerosis primarily involving the superficial femoral arteri es. Similar findings previously. No occlusion. Reading Location[facility]
[2025-01-27 14:06] LABS: CREATININE FINGERSTICK 1.2 mg/dL (0.55-1.02); EGFR FINGERSTICK 49.0000 mL/min (>60)
== END | disposition home or self-care (01) ==
LOC: CT 13:40
PROVIDERS: PCP Family Medicine; Referring Provider Physician Assistant; Visit Provider Physician Assistant
DX: Z48.812 Encounter for surgical aftercare following surgery on the circulatory system (principal); I70.223 Atherosclerosis of native arteries of extremities with rest pain, bilateral legs; I65.23 Occlusion and stenosis of bilateral carotid arteries
CPT/HCPCS: 75635; Q9967